=== PATIENT | female | born 1930 | race Caucasian/White ===

== ENCOUNTER 2016-08-08 08:44 | Inpatient (IN) | payer MEDICARE, OTHER ==
[2016-08-08] MEDS ORDERED: Famotidine 20 MG/2 ML SDV IVPUSH ONE (09:07)
[2016-08-08] MEDS ORDERED: Metoprolol Tartrate 5 MG/5 ML SDV IVPUSH ONE (09:10)
--- NOTE | 2016-08-08 09:11 | EDM.PDOC ---
ED HISTORY OF PRESENT ILLNESS - General Chief Complaint: Back Pain or Injury Stated Complaint: right sided rib/back pain Time Seen by Provider: 08/08/16 08:55 Source of Information: Reports: Patient, Old records ([facility] chart/EMR) - History of Present Illness INITIAL COMMENTS - FREE TEXT/NARRATIVE: Patient was brought to the emergency room via private automobile by her friend for evaluation of nonspecific 9/10 pressure in the right chest region with radiation to the right posterior back region, right scapular region, mid thoracic region, and right shoulder. Symptoms started at about 07:15 a.m. this morning with patient taking some water at that time and experiencing some increased burping. She has also noticed some increased bilateral hand swelling and dependent edema since 08/06. The patient was just discharged from this facility on 07/18/16 for anasarca, CHF, and hypertension. She was also started on hydrocodone for nonspecific hand pain on 08/01/16. Patient has not taken her morning medications to this point and also did not take any medications for her above symptoms. The patient denies any heart flutter, dizziness, orthostasis, orthopnea, diaphoresis, paresthesias, recent decreased exercise tolerance, or any other anginal-type symptoms. No recent history of abdominal pain, heartburn , nausea, diarrhea, melena, gross hematochezia, or any food intolerance, including fatty foods, etc.. The patient also denies any recent fever, cough, wheezing, dyspnea, etc.. No history of recent headaches, visual changes, diplopia, change in mental status, or other change in neurological status. Symptom Onset Date: 08/08/16 Symptom Onset Time: 07:15 Timing/Duration: Reports: Constant Severity: severe Location, General: Reports: chest, back, upper extremity, right, radiates to: ( As above). 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) (None) - Related Data Allergies/ADRs: Allergies Allergy/AdvReac Type Severity Reaction Status Date / Time atorvastatin calcium Allergy Lightheaded Verified 08/08/16 08:59 [From Lipitor] ness benzalkonium chloride Allergy Redness Verified 08/08/16 08:59 [From Travatan] celecoxib [From Celebrex] Allergy Change Verified 08/08/16 08:59 Mental Status erythromycin base Allergy Hives Verified 08/08/16 08:59 [Erythromycin Base] iodine Allergy Other Verified 08/08/16 08:59 nifedipine Allergy Swelling Verified 08/08/16 08:59 Penicillins Allergy Swelling Verified 08/08/16 08:59 rofecoxib [From Vioxx] Allergy Change Verified 08/08/16 08:59 Mental Status rosuvastatin calcium Allergy Lightheaded Verified 08/08/16 08:59 [From Crestor] ness sulfamethoxazole Allergy Hives Verified 08/08/16 08:59 [From Sulfamethoprim] travoprost [From Travatan] Allergy Redness Verified 08/08/16 08:59 trimethoprim Allergy Hives Verified 08/08/16 08:59 [From Sulfamethoprim] valdecoxib [From Bextra] Allergy Change Verified 08/08/16 08:59 Mental Status soy Allergy Nausea and Uncoded 08/08/16 08:59 Vomiting Home Meds: Home Meds Acetaminophen 650 mg PO Q4HR PRN 07/15/16 [History] Docusate Sodium [Colace] 1 cap PO BID PRN 07/15/16 [History] Ketotifen Fumarate [Zaditor] 1 drop EYEBOTH BEDTIME 07/15/16 [History] LORazepam [Ativan] 0.5 mg PO BEDTIME PRN 07/15/16 [History] Levothyroxine Sodium [Unithroid] 50 mcg PO DAILY 07/15/16 [History] Losartan Potassium 1 tab PO DAILY 07/15/16 [History] Lutein/Minerals/Vit A,C & E [Ocuvite] 1 tab PO BID 07/15/16 [History] Methyl Salicylate/Menthol [Muscle Rub] 1 applic TOP ASDIRECTED PRN 07/15/16 [ History] Multivitamin [Daily Rajat] 1 tab PO DAILY 07/15/16 [History] Nitroglycerin [Nitrostat] 0.4 mg SL Q5M PRN 07/15/16 [History] Warfarin [Coumadin] 1 tab PO MOTUTHFRSA@1800 07/15/16 [History] Warfarin [Coumadin] 2 mg PO SUWE@1800 07/15/16 [History] amLODIPine Besylate [Amlodipine Besylate] 2.5 mg PO Q12HR 07/15/16 [History] Furosemide [Lasix] 20 mg PO DAILY #30 tablet 07/18/16 [Rx] Metoprolol Tartrate [Lopressor] 12.5 mg PO Q12HR #15 tablet 07/18/16 [Rx] Hydrocodone/Acetaminophen [Hydrocodone-Acetaminophen 5-325] 0.5 tab PO Q4HR PRN 08/08/16 [History] Past Medical History HEENT History: Reports: Allergic rhinitis, Cataract, Glaucoma, Hard of hearing, Impaired vision, Other (see below). Denies: Retinal detachment Other HEENT History: Patient wears trifocals, bilateral hearing aides Cardiovascular History: Reports: Afib, Arrhythmia, Blood clots/VTE/DVT, CAD, Cardiomyopathy, Heart Failure, Heart murmur, High cholesterol, Hypertension, PVD , Other (see below). Denies: Aneurysm, Bypass, NE, Pacemaker, Stents, Syncope Other Cardiovascular History: First degree A-V block, PVCs, PACs, distant brief atrial fibrillation, patient denies previous NE despite medical records, grade 2 diastolic dysfunction, moderate left ventricular hypertrophy and left atrial enlargement by echocardiogram, mild pulmonary valve insufficiency and mild to moderate tricuspid valve insufficiency with additional mild mitral valve insufficiency by echocardiogram, mild aortic valve sclerosis without stenosis, mild carotid occlusive, history of superficial thrombophlebitis and varicose veins, DVT of the proximal left femoral vein on 08/09/15 with right-sided PE on 05/08/16 and current warfarin therapy Respiratory History: Reports: COPD, Intubation, previous, PE, Sleep apnea, SOB, Other (see below). Denies: Asthma, Intubation, difficult, Pneumothorax, Pulmonary fibrosis Other Respiratory History: Patient does use CPAP for her moderate to severe obstructive sleep apnea with previous history of nocturnal hypoxemia, PE as above, left apical benign granuloma by CT scan on 05/08/16, COPD by chest x-ray with no medical therapy Gastrointestinal History: Reports: Chronic constipation, Diverticulosis, GERD, Other (see below). Denies: Celiac disease, Cholelithiasis, Chronic diarrhea, Colon polyp, Fecal incontinence, Gastritis, GI bleed, Hepatitis, Hiatal hernia, Inflammatory bowel disease, Irritable bowel syndrome, Jaundice, Pancreatitis, PUD Other Gastrointestinal History: Benign hepatic cysts by CT scan on 02/18/16, fatty liver secondary to hyperlipidemia Genitourinary History: Reports: Chronic renal insuffiency, Renal disease, Other (see below). 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 Denies: Amputation , Fracture, SLE Neurological History: Reports: CVA, Headaches, chronic, Migraines, Other (see below). 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 Denies: Abuse, victim of, ADD, ADHD, Addiction, Psych Hospitalization(s), PTSD, Suicide attempt, Suicidal ideation Endocrine/Metabolic History: Reports: Hypothyroidism, Osteoporosis. 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 Denies: AIDS, HIV, SLE Oncologic (Cancer) History: Reports: None. Denies: Basal cell carcinoma, Cervix , Hodgkin's Lymphoma, Leukemia, Lymphoma, Malignant melanoma, Non-Hodgkin's Lymphoma, Squamous cell carcinoma, Uterine Dermatologic History: Reports: Other (see below). Denies: Eczema, Psoriasis Other Dermatologic History: Actinic keratosis of the nose previously treated - Infectious Disease History Infectious Disease History: Reports: Chicken pox, Measles, Mumps, Shingles ( Left lower chest region in about 2004). Denies: C-difficile, Meningitis, Mononucleosis, MRSA, Pertussis (whooping cough), Rheumatic Fever, Rubella, Scarlet fever, TB, VRE - Past Surgical History Head Surgeries/Procedures: Reports: None HEENT Surgical History: Reports: Cataract surgery, Oral surgery, Other (see below). Denies: Adenoidectomy, Eye surgery, Laser surgery, LASIK, Myringotomy w tube(s), Naso-sinus surgery, Tonsillectomy Other HEENT Surgeries/Procedures: Bilateral cataract surgery in 2012, multiple teeth extractions with partial upper dentures Cardiovascular Surgical History: Reports: Varicose, Vascular surgery, Other ( see below). Denies: Carotid stents, Coronary artery bypass, Pacer, Percutaneous transluminal angioplasty Other Cardiovascular Surgeries/Procedures: Varicose vein stripping in the right leg in 1951 Respiratory Surgical History: Reports: None. Denies: Lung Biopsies, Thoracentesis GI Surgical History: Reports: Appendectomy, Colonoscopy, Other (see below). Denies: EGD, Hernia, abdominal, Hernia, inguinal, Hernia repair/other, Polypectomy Other GI Surgeries/Procedures: Colonoscopy in the , appendectomy concomitant with partial hysterectomy as below Female Surgical History: Reports: Breast biopsy, Hysterectomy, Salpingo- oophorectomy, Other (see below). Denies: section, Tubal ligation Other Female Surgeries/Procedures: Left breast biopsy for benign disease in the , partial hysterectomy with remaining left ovary secondary to dysfunctional uterine bleeding in the , previous right-sided salpingo- oophorectomy prior to the above hysterectomy Endocrine Surgical History: Reports: None. Denies: Thyroid biopsy Neurological Surgical History: Reports: None. Denies: C-Spine, Intracranial, Laminectomy, Lumbar spine, Spinal fusion, Vertebroplasty Musculoskeletal Surgical History: Reports: Arthroscopic knee, Arthroscopic procedure, Carpal tunnel, Hip replacement, Joint replacement, Other (see below) . Denies: Amputation, Ganglion cyst, Nerve relocation Other Musculoskeletal Surgeries/Procedures:: Left hip TEP on 06/25/15, right carpal tunnel release in about 2004, left carpal tunnel release on 06/29/14, right arthroscopic knee surgery in about 2007 Oncologic Surgical History: Reports: Biopsy of breast, Other (see below) Other Oncologic Surgeries/Procedures: Biopsy of the breast as above Dermatological Surgical History: Reports: None - Past Imaging History Past Imaging History: Reports: Angiography (Negative heart catheterization in about 1999), Cardiac echo (Last on 05/13/16 with ejection fraction of 65-70% and moderate disease as above, previous evaluations on 05/08/16, 05/08/14 and ), Carotid US (11/02/09), CAT scan (Abdomen and pelvis on 02/04/10 and , CT of the chest on 05/08/16), Mammogram (Last mammogram on 10/08/15), MRI ( MRI of the lumbar region and left hip on 05/21/15, MRI of the right knee on 01/22), Sleep study (02/13/16 and 10/01/15), Stress testing (Cardiolite stress test on 01/17/10), Venous doppler (Left leg on 08/09/15, bilateral legs on 05/08/16, right leg on 04/29/10) Social & Family History - Family History HEENT: Reports: Allergic rhinitis, Retinal detachment, Other (see below). Denies: Glaucoma, Macular degeneration Other HEENT Family History: Daughter with retinal detachment Cardiac: Reports: Bypass, CAD, Heart murmur, Heart valve replacement, High cholesterol, Hypertension, NE, PVD/COD, Other (see below). Denies: Afib, Aneurysm, Arrhythmia, Blood clots/VTE/DVT, Heart failure, Syncope Other Cardiac Family History: Son with mechanical valve replacement and CABG x1 at about age 62, son also - also suffers from hypertension hyperlipidemia, son with agent orange exposure Respiratory: Reports: None. Denies: Asthma, COPD, PE, Pneumothorax, Sleep apnea GI: Reports: Celiac disease, Other (see below). Denies: Cholelithiasis, Colon polyps, GERD, GI bleed, Hiatal hernia, Inflammatory bowel disease, Irritable bowel syndrome, Jaundice, Pancreatitis Other GI Family History: Daughter with celiac disease : Reports: Renal disease/insufficiency, Other (see below). Denies: Dialysis, Renal calculus Other Family History: Mother with end-stage renal disease OBGYN: Reports: None. Denies: Dysfunctional uterine bleeding, Endometriosis, Recurrent spontaneous Musculoskeletal: Reports: None. Denies: Connective tissue disease, Gout, RA, SLE Neurological: Reports: Migraines, Seizure, Other (see below). Denies: Alzheimers disease, Cerebral aneurysms, CVA, Dementia, MS, Parkinson's, TIA Other Neurological Family History: Granddaughter with seizures at age 19, 2 granddaughters with migraine headaches Psychiatric: Reports: Anxiety, Depression, Other (see below). Denies: Abuse, victim of, ADD, ADHD, PTSD, Suicide attempt Other Psychiatric Family History: Son with anxiety depression disorder Endocrine/Metabolic: Reports: None. Denies: Diabetes, type I, Diabetes, type II , Hypothyroidism, IDDM Hematologic: Reports: None. Denies: Anemia, SLE Immunologic: Reports: None. Denies: AIDS, Immunosuppression, SLE Dermatologic: Reports: Psoriasis, Other (see below). Denies: Eczema Other Dermatologic Family History: Daughter with psoriasis Oncologic: Reports: Bone, Esophageal, Metastatic, Other (see below). Denies: Hodgkin's lymphoma, Skin Other Oncologic Family History: Sister with possible bone cancer fatal at age 18 , sister with fatal throat cancer in her 60s, sister with fatal vaginal cancer in her 60s, father with fatal throat cancer with pulmonary metastases at age 77 - Tobacco Use Smoking Status *Q: Never Smoker Smoking Cessation Information Provided To Patient: No Second Hand Smoke Exposure: No Second Hand Smoke Education Provided: No - Caffeine Use Caffeine Use: Reports: Coffee (4 cups per day), Soda (2 sodas per month), Tea ( 2 cups per week). Denies: Energy drinks - Alcohol Use Alcohol Use History: Yes Days Per Week of Alcohol Use: 0 (No previous DWIs, problems with alcohol abuse, etc.) Number of Drinks Per Day: 1 (Usually occasional beer or wine once per month) Total Drinks Per Week: 0 Alcohol Use Frequency: Socially - Recreational Drug Use Recreational Drug Use: No Drug Use in Last 12 Months: No Recreational Drug Type: Denies: Amphetamines (Speed), Cocaine, Heroin, Inhalants (Glues, Solvents, Aerosols), LSD (Acid), Marijuana/Hashish, Methamphetamine, Morphine - Living Situation & Occupation Living situation: Reports: (2010, 2 children), alone 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 Denies: fever, chills, weakness, fatigue , night sweats, diaphoresis, decreased appetite, weight loss, weight gain HEENT: Reports: No symptoms, Glasses. Denies: Contact Lenses, Dental pain, Ear pain, Eye pain, Hearing loss, Rhinitis, Sinus problem, Throat pain, Vertigo, Vision change Respiratory: Reports: No Symptoms. Denies: Shortness of Breath, Wheezing, Pleuritic Chest Pain, Cough, Hemoptysis Cardiovascular: Reports: Chest pain, Edema (Increasing dependent edema as above) . Denies: Blood pressure problem, Dyspnea on exertion, Lightheadedness, Orthopnea, Palpitations, PND, Syncope Endocrine: Reports: no symptoms GI/Abdominal: Reports: Other (Mild burping as above). Denies: Abdominal pain, Anorexia, Black stool, Bloody stool, Constipation, Diarrhea, Decreased appetite , Difficulty swallowing, Distension, Flatus, Hematemesis, Hematochezia, Melena, Nausea, Stool incontinence : Reports: no symptoms. Denies: dysuria, flank pain, frequency, hematuria, pain, urgency, urinary retention Musculoskeletal: Reports: shoulder pain, back pain, hand pain (Chronic). Denies : neck pain, arm pain, leg pain, foot pain, joint pain, joint swelling Skin: Reports: no symptoms. Denies: diaphoresis, wound Neurological: Denies: Confusion, Dizziness, Headache, Numbness, Paresthesia, Tingling, Weakness Psychiatric: Reports: No symptoms. Denies: Agitation, Anxiety, Depression, Hallucinations, Suicidal ideation Hematologic/Lymphatic: Reports: no symptoms Immunologic: Reports: no symptoms ED EXAM, GENERAL - Physical Exam Exam: See Below Exam Limited By: No limitations General Appearance: alert, WD/WN, no apparent distress Eye Exam: bilateral eye: EOMI, normal inspection (No nystagmus), PERRL Ears: normal external exam, normal canal, normal TMs, hearing loss (Moderate bilateral hearing loss with the patient not wearing her hearing aides currently) . No: hearing grossly normal Nose: normal inspection, normal mucosa, no blood Throat/Mouth: Normal inspection, Normal lips, Normal teeth (Multiple missing teeth), Normal gums, Normal oropharynx, Normal voice, No airway compromise. No : Dysphagia, Inflammation Head: atraumatic, normocephalic. No: facial swelling, facial tenderness, sinus tenderness Neck: normal inspection, supple, non-tender, full range of motion, carotid bruit (Bilateral carotid bruits-mild). No: lymphadenopathy (L), lymphadenopathy (R), thyromegaly Respiratory/Chest: no accessory muscle use, chest non-tender, rales (Bilateral basilar-mild). No: wheezing, pleural rub, retractions Cardiovascular: normal peripheral pulses, no gallop, no JVD, no murmur, no rub, extra beats (Uniform PVCs a monitoring analyst as below, regular rate). No: regular rate, rhythm, no edema (Dependent edema as below), systolic murmur, gallop/S3, gallop/S4, friction rub Peripheral Pulses: 2+: radial (L), radial (R), dorsalis pedis (L), dorsalis pedis (R) GI/Abdominal: normal bowel sounds, soft, non tender, no organomegaly, no distention, no abnormal bruit, no mass, other (obese). No: guarding (Female) Exam: Deferred Rectal (Female) Exam: Deferred Back Exam: normal inspection, full range of motion. No: CVA tenderness (L), CVA tenderness (R), muscle spasm Extremities: normal range of motion, non-tender, normal capillary refill, pedal edema (+ 1 bilateral pedal/pretibial edema). No: Sergio's Sign Neurological: alert, oriented, CN II-XII intact, normal cognition, normal gait, normal reflexes (Negative Babinski's), no motor/sensory deficits Psychiatric: normal affect, normal mood Skin Exam: Warm, Dry, Intact, Normal color, No rash. No: Diaphoretic, Ecchymosis, Lymphangitis, Petechiae, Wound/incision Lymphatic: no adenopathy EKG INTERPRETATION EKG Date: 08/08/16 Time: 09:09 Rhythm: other (Sinus rhythm with PVCs) Rate (beats/min): 70 [place]: normal (Left cardiac axis) P-wave: enlarged (Moderate diffuse biphasic P waves with extreme poor R-wave progression in the anterior leads) QRS: normal (QRS interval of 0.09 seconds representing repolarization changes with T-wave inversion in lead aVL) ST-T: other (As below) QT: normal (0.19 seconds) Comparison: no change (Last EKG on 07/16/16) EKG Interpretation Comments: 1. No acute ischemic changes 2. Probable left atrial enlargement 3. PVCs Course - Vital Signs Last Recorded V/S: Last Vital Signs Temp 36.6 C 08/08/16 08:50 Pulse 64 08/08/16 11:55 Resp 16 08/08/16 11:55 BP 155/57 H 08/08/16 11:55 Pulse Ox 100 08/08/16 11:55 Vital Signs - 24 hr 08/08/16 08/08/16 08/08/16 08:50 09:32 09:33 Temperature [ 36.6 C Oral] Pulse, 74 Peripheral Pulse, 68 74 Peripheral [ Right Brachial] Respiratory 18 14 Rate Blood Pressure 200/80 H Blood Pressure 180/80 H 200/80 H [Left Upper Arm ] Blood Pressure 218/88 H [Right Upper Arm] O2 Sat by Pulse 98 100 Oximetry 08/08/16 08/08/16 08/08/16 09:40 09:45 09:56 Temperature [ Oral] Pulse, Peripheral Pulse, 67 65 Peripheral [ Right Brachial] Respiratory 16 15 Rate Blood Pressure 200/80 H Blood Pressure [Left Upper Arm ] Blood Pressure 150/70 H 168/80 H [Right Upper Arm] O2 Sat by Pulse 99 100 Oximetry 08/08/16 08/08/16 08/08/16 10:47 10:51 11:10 Temperature [ Oral] Pulse, Peripheral Pulse, 68 67 Peripheral [ Right Brachial] Respiratory 16 14 Rate Blood Pressure 187/57 H Blood Pressure 187/57 H [Left Upper Arm ] Blood Pressure 144/52 H [Right Upper Arm] O2 Sat by Pulse 100 100 Oximetry 08/08/16 11:55 Temperature [ Oral] Pulse, Peripheral Pulse, 64 Peripheral [ Right Brachial] Respiratory 16 Rate Blood Pressure Blood Pressure [Left Upper Arm ] Blood Pressure 155/57 H [Right Upper Arm] O2 Sat by Pulse 100 Oximetry - Orders/Labs/Meds Orders: Active Orders 24 hr Category Date Time Status Cardiac Monitoring [RC] . DIRECTED Care 08/08/16 09:07 Active EKG Documentation Completion [RC] ASDIRECTED Care 08/08/16 09:07 Active Oxygen Therapy, ED [RC] CONTINUOUS Care 08/08/16 09:07 Active Peripheral IV Care [RC] . DIRECTED Care 08/08/16 09:07 Active Pulse Oximetry [RC] CONTINUOUS Care 08/08/16 09:07 Active Up With Assistance [RC] PFP Care 08/08/16 09:07 Active Vital Signs [RC] PFP Care 08/08/16 09:07 Active Nothing per Oral Now Diet [DIET] Diet 08/08/16 Breakfast Active Chest 1V Frontal [CR] Stat Exams 08/08/16 09:07 Taken Chest PE [Ang Chest] [CT] Stat Exams 08/08/16 10:07 Taken Enoxaparin [Lovenox] Med 08/08/16 10:15 Active 70 mg SUBCUT Q24H Morphine Med 08/08/16 11:30 Once 2 mg IVPUSH ONETIME ONE Nitroglycerin [Nitrostat] Med 08/08/16 09:35 Stat 0.4 mg SL ONETIME STA Nitroglycerin [Nitrostat] Med 08/08/16 10:50 Stat 0.4 mg SL ONETIME STA Sodium Chloride 0.9% [Saline Flush] Med 08/08/16 09:07 Active 10 ml FLUSH ASDIRECTED PRN Obtain Past Medical Record [OM.PC] Urgent Oth 08/08/16 09:07 Active Peripheral IV Insertion Adult [OM.PC] Stat Oth 08/08/16 09:07 Ordered Resuscitation Status Stat Resus Stat 08/08/16 09:07 Ordered Medication Orders Enoxaparin Sodium (Lovenox) 70 mg SUBCUT Q24H [facility] Last Admin: 08/08/16 10:13 Dose: 70 mg Morphine Sulfate (Morphine) 2 mg IVPUSH ONETIME ONE Stop: 08/09/16 11:31 Last Admin: 08/08/16 11:37 Dose: 2 mg Nitroglycerin (Nitrostat) 0.4 mg SL ONETIME STA Stop: 08/09/16 09:36 Last Admin: 08/08/16 09:40 Dose: 0.4 mg Nitroglycerin (Nitrostat) 0.4 mg SL ONETIME STA Stop: 08/09/16 10:51 Last Admin: 08/08/16 10:51 Dose: 0.4 mg Sodium Chloride (Saline Flush) 10 ml FLUSH ASDIRECTED PRN PRN Reason: Keep Vein Open Last Admin: 08/08/16 09:44 Dose: 10 ml Admin: 08/08/16 09:33 Dose: 10 ml Labs: Laboratory Tests 08/08/16 08/08/16 08/08/16 Range/Units 09:20 09:20 09:20 WBC 6.0 (4.0-10.2) K/uL RBC 3.86 (3.77-5.09) M/uL Hgb 10.5 L (11.7-15.5) g/dL Hct 32.6 L (34.0-46.0) % MCV 84.5 (84.0-98.0) fL MCH 27.2 L (28.2-33.3) pg MCHC 32.2 (31.7-36.0) g/dL RDW 15.5 H (11.2-14.1) % Plt Count 266 (150-350) K/uL Neut % (Auto) 64.0 (45.0-80.0) % Lymph % (Auto) 22.0 (10.0-50.0) % Crockett % (Auto) 10.1 (2.0-14.0) % Eos % (Auto) 3.4 (0.0-5.0) % Baso % (Auto) 0.5 (0.0-2.0) % Neut # 3.82 (1.40-7.00) K/uL Lymph # 1.31 (0.50-3.50) K/uL Crockett # 0.60 (0.00-1.00) K/uL Eos # 0.20 (0.00-0.50) K/uL Baso # 0.03 (0.00-0.20) K/uL PT 13.3 H D (9.8-11.7) SEC INR 1.2 APTT 29.2 (23.5-30.0) SEC D-Dimer, Quantitative 643 H (0-400) ng/mL Sodium (136-145) mmol/L Potassium (3.5-5.1) mmol/L Chloride (98-107) mmol/L Carbon Dioxide (21.0-32.0) mmol/L BUN (7-18) mg/dL Creatinine (0.51-1.17) mg/dL Est Cr Clr Drug Dosing mL/min Estimated GFR (MDRD) mL/min Glucose (74-106) mg/dL Lactic Acid (0.4-2.0) mmol/L Uric Acid (2.6-7.2) mg/dL Calcium (8.5-10.1) mg/dL Magnesium (1.8-2.4) mg/dL Total Bilirubin (0.2-1.0) mg/dL AST (15-37) U/L ALT (12-78) U/L Alkaline Phosphatase (46-116) IU/L Creatine Kinase (26-308) U/L Creatine Kinase Index (0.0-2.5) % CK-MB (CK-2) (0.00-3.60) ng/mL Troponin I (0.000-0.056) ng/mL [id number] Pept (0-125) pg/mL Total Protein (6.4-8.2) g/dL Albumin (3.4-5.0) g/dL TSH, Ultra Sensitive (0.358-3.740) mIU/mL H. pylori IgG Antibody (NEGATIVE) 08/08/16 08/08/16 08/08/16 Range/Units 09:20 09:20 09:20 WBC (4.0-10.2) K/uL RBC (3.77-5.09) M/uL Hgb (11.7-15.5) g/dL Hct (34.0-46.0) % MCV (84.0-98.0) fL MCH (28.2-33.3) pg MCHC (31.7-36.0) g/dL RDW (11.2-14.1) % Plt Count (150-350) K/uL Neut % (Auto) (45.0-80.0) % Lymph % (Auto) (10.0-50.0) % Crockett % (Auto) (2.0-14.0) % Eos % (Auto) (0.0-5.0) % Baso % (Auto) (0.0-2.0) % Neut # (1.40-7.00) K/uL Lymph # (0.50-3.50) K/uL Crockett # (0.00-1.00) K/uL Eos # (0.00-0.50) K/uL Baso # (0.00-0.20) K/uL PT (9.8-11.7) SEC INR APTT (23.5-30.0) SEC D-Dimer, Quantitative (0-400) ng/mL Sodium 138 (136-145) mmol/L Potassium 4.0 (3.5-5.1) mmol/L Chloride 102 (98-107) mmol/L Carbon Dioxide 28.6 (21.0-32.0) mmol/L BUN 24 H (7-18) mg/dL Creatinine 0.91 (0.51-1.17) mg/dL Est Cr Clr Drug Dosing 37.61 mL/min Estimated GFR (MDRD) 58 mL/min Glucose 103 (74-106) mg/dL Lactic Acid 0.8 (0.4-2.0) mmol/L Uric Acid 5.7 (2.6-7.2) mg/dL Calcium 8.7 (8.5-10.1) mg/dL Magnesium 2.0 (1.8-2.4) mg/dL Total Bilirubin 0.5 (0.2-1.0) mg/dL AST 21 (15-37) U/L ALT 20 (12-78) U/L Alkaline Phosphatase 72 (46-116) IU/L Creatine Kinase 43 (26-308) U/L Creatine Kinase Index 1.4 (0.0-2.5) % CK-MB (CK-2) 0.60 (0.00-3.60) ng/mL Troponin I 0.038 (0.000-0.056) ng/mL [id number] Pept 2105 H (0-125) pg/mL Total Protein 6.8 (6.4-8.2) g/dL Albumin 3.3 L (3.4-5.0) g/dL TSH, Ultra Sensitive 3.845 H (0.358-3.740) mIU/mL H. pylori IgG Antibody Negative (NEGATIVE) Meds: Medications Generic Name Dose Route Start Last Admin Trade Name Freq PRN Reason Stop Dose Admin Enoxaparin Sodium 70 mg 08/08/16 10:15 08/08/16 10:13 Lovenox SUBCUT 70 mg Q24H NIKITA Administration Morphine Sulfate 2 mg 08/08/16 11:30 08/08/16 11:37 Morphine IVPUSH 08/09/16 11:31 2 mg ONETIME ONE Administration Nitroglycerin 0.4 mg 08/08/16 09:35 08/08/16 09:40 Nitrostat SL 08/09/16 09:36 0.4 mg ONETIME STA Administration Nitroglycerin 0.4 mg 08/08/16 10:50 08/08/16 10:51 Nitrostat SL 08/09/16 10:51 0.4 mg ONETIME STA Administration Sodium Chloride 10 ml 08/08/16 09:07 08/08/16 09:44 Saline Flush FLUSH 10 ml ASDIRECTED PRN Administration Keep Vein Open Discontinued Medications Generic Name Dose Route Start Last Admin Trade Name Freq PRN Reason Stop Dose Admin Famotidine 40 mg 08/08/16 09:07 08/08/16 09:33 Pepcid IVPUSH 08/08/16 09:08 40 mg ONETIME ONE Administration Furosemide 60 mg 08/08/16 09:21 08/08/16 09:37 Lasix IVPUSH 08/08/16 09:22 60 mg NOW ONE Administration Iopamidol 100 ml 08/08/16 10:15 08/08/16 10:33 Isovue-370 (76%) IVPUSH 08/08/16 10:16 100 ml ONETIME ONE Administration Metoprolol Tartrate 2.5 mg 08/08/16 09:10 08/08/16 09:33 Lopressor IVPUSH 08/08/16 09:11 2.5 mg ONETIME ONE Administration Ondansetron HCl 4 mg 08/08/16 11:30 08/08/16 11:35 Zofran IVPUSH 08/08/16 11:31 4 mg ONETIME ONE Administration - Radiology Interpretation Free Text/Narrative:: electronic device monitor shows sinus rhythm with heart rates in the 70s with frequent uniform PVCs and occasional brief noted but no other significant cardiac arrhythmia Chest x-ray, portable, shows moderate aortic valve calcification with mild prominence of the proximal aortic arch with additional moderate COPD and pulmonary fibrotic changes. No pneumothorax or pulmonary infiltrates. Mild pulmonary hypertension and centralized CHF Telephone consultation at 11:55 hours with the radiology department at [facility]. Preliminary verbal report of the CTA of the chest with IV contrast shows no evidence of PE, etc. CT Results Date: 08/08/16 CT Results Time: 11:55 Departure - Departure Time of Disposition: 12:25 Disposition: Admitted As Inpatient 65 Condition: fair Clinical Impression: CHF (congestive heart failure), HTN (hypertension), Hypothyroidism, Renal insufficiency, Peptic reflux disease, Osteoarthritis, COPD, Mild chronic obstructive pulmonary disease, Anemia, D-dimer, elevated, Chest pain - Problem List & Annotations (1) Chest pain SNOMED Code(s): 80791848 Code(s): R07.9 - CHEST PAIN, UNSPECIFIED Status: Acute Priority: High Current Visit: Yes Onset Date: 08/08/16 Annotation/Comment:: Chest pain protocol initiated in the emergency room, although ASA and Plavix were not initially given secondary to her current Coumadin therapy, although INR subtherapeutic today. Subcutaneous Lovenox initiated once INR results were obtained. Stat CTA of the chest was also ordered with results as above. IV Lopressor and sublingual nitroglycerin also given for better blood pressure control and as cardiac prophylaxis. Initiate standard rule out NE orders with cardiology consultation depending on her clinical course. Patient was previously comfort care, however after discussing her wishes she does agree to full code with only brief CPR/code and short-term intubation only. Nonspecific nausea and headache during the end of her emergency room care, which did require IV Zofran and IV morphine therapy. Chest pain significantly improved at time of admission Qualifiers: Chest pain type: other chest pain Qualified Code(s): R07.89 - Other chest pain; R07.8 - Other chest pain (2) CHF (congestive heart failure) SNOMED Code(s): 04519862 Code(s): I50.9 - HEART FAILURE, UNSPECIFIED Status: Acute Priority: High Current Visit: Yes Onset Date: 07/15/16 Annotation/Comment:: Mild centralized CHF by chest x-ray with moderate BNP elevation and secondary mild change in her troponin I, however otherwise negative EKG and cardiac enzymes. High-dose IV Lasix given in the emergency room. Repeat cardiac enzymes x2 and also in the a.m. along with repeat EKG. She has had multiple echocardiograms, including last evaluation on 05/08/16 as above. Continue IV Lasix therapy with further medication adjustments depending on her clinical course. The patient should be discharged with higher oral dose of Lasix with caution secondary to her history of renal insufficiency. Qualifiers: Congestive heart failure type: combined Congestive heart failure chronicity : acute on chronic Qualified Code(s): I50.43 - Acute on chronic combined systolic (congestive) and diastolic (congestive) heart failure (3) D-dimer, elevated SNOMED Code(s): 811528015 Code(s): R79.89 - OTHER SPECIFIED ABNORMAL FINDINGS OF BLOOD CHEMISTRY Status: Acute Priority: High Current Visit: Yes Onset Date: 08/08/16 Annotation/Comment:: Subcutaneous Lovenox initiated in the emergency room. INR apparently 1.7 prior to initiation of her hydrocodone, which will be discontinued at this time. Continue subcutaneous Lovenox therapy for now with mild Coumadin loading on admission. INR in the a.m.. Discontinue Lovenox when INR is therapeutic. CTA of the chest is negative as above. Consider venous Doppler studies of the lower extremities depending on her clinical course. (4) HTN (hypertension) SNOMED Code(s): 27024621 Code(s): I10 - ESSENTIAL (PRIMARY) HYPERTENSION Status: Acute Priority: High Current Visit: Yes Annotation/Comment:: Definitely elevated blood pressures on arrival in the emergency room, although they have been under good control on an outpatient basis since hospital discharge as above by her history. Note that the patient did not take any of her morning medications. IV Lopressor, IV Lasix, and sublingual nitroglycerin tablets given in the emergency room with improved blood pressure. Losartan will be changed to an every afternoon regimen as previously recommended during last hospitalization with further medication adjustments depending on her clinical course. Qualifiers: Hypertension type: essential hypertension Qualified Code(s): I10 - Essential (primary) hypertension (5) COPD, Mild chronic obstructive pulmonary disease SNOMED Code(s): 886196912 Code(s): J44.9 - CHRONIC OBSTRUCTIVE PULMONARY DISEASE, UNSPECIFIED Status : Acute Priority: Medium Current Visit: Yes Annotation/Comment:: By chest x-ray not requiring medical therapy. No current bronchitic symptoms (6) Anemia SNOMED Code(s): 258444207 Code(s): D64.9 - ANEMIA, UNSPECIFIED Status: Chronic Priority: Medium Current Visit: Yes Annotation/Comment:: Persistent anemia although stable from previous recent hospitalization as above, with no abdominal pain or history of hematochezia, signs of acute GI bleed, etc. Previous history of chronic anemia likely secondary to renal disease and iron deficiency with Iron studies, vitamin B 12 level and folic acid level conducted during the last hospitalization, which did confirm persistent mild iron deficiency. Patient was not started on iron supplementation after previous hospital discharge, although this will be initiated during this hospitalization. Hemoccult also to be ordered after admission. (7) Hypothyroidism SNOMED Code(s): 52795287 Code(s): E03.9 - HYPOTHYROIDISM, UNSPECIFIED Status: Chronic Priority: Medium Current Visit: Yes Annotation/Comment:: TSH somewhat elevated today with adjustment of Synthroid therapy on admission (8) Mixed anxiety depressive disorder SNOMED Code(s): 136641699 Code(s): F41.8 - OTHER SPECIFIED ANXIETY DISORDERS Status: Chronic Current Visit: No Annotation/Comment:: Stable by patient history with continued close observation by her regular provider (9) Osteoarthritis SNOMED Code(s): 123332689 Code(s): M19.90 - UNSPECIFIED OSTEOARTHRITIS, UNSPECIFIED SITE Status: Chronic Priority: Medium Current Visit: Yes Annotation/Comment:: Recently under moderate control by patient history with additional history of rheumatoid arthritis, gout, and fibromyalgia. Discontinue narcotic medication. Further medication adjustments by her regular providers depending on her clinical course (10) Peptic reflux disease SNOMED Code(s): 35804862 Code(s): K21.9 - GASTRO-ESOPHAGEAL REFLUX DISEASE WITHOUT ESOPHAGITIS Status: Chronic Priority: Medium Current Visit: Yes Annotation/Comment:: Currently nonsymptomatic with IV Pepcid given in the emergency room as GI prophylaxis (11) Renal insufficiency SNOMED Code(s): 914872836 Code(s): N28.9 - DISORDER OF KIDNEY AND URETER, UNSPECIFIED Status: Chronic Priority: Medium Current Visit: Yes Annotation/Comment:: Stable by history with normal creatinine today (12) Iron deficiency anemia SNOMED Code(s): 77387539 Code(s): D50.9 - IRON DEFICIENCY ANEMIA, UNSPECIFIED Status: Chronic Current Visit: Yes Annotation/Comment:: As above Qualifiers: Iron deficiency anemia type: other iron deficiency Qualified Code(s): D50.8 - Other iron deficiency anemias - Problem List Review Problem List Initiated/Reviewed/Updated: Yes - My Orders Last 24 Hours: My Active Orders 08/08/16 09:07 Cardiac Monitoring [RC] . DIRECTED EKG Documentation Completion [RC] ASDIRECTED Oxygen Therapy, ED [RC] CONTINUOUS Peripheral IV Care [RC] . DIRECTED Pulse Oximetry [RC] CONTINUOUS Up With Assistance [RC] PFP Vital Signs [RC] PFP Chest 1V Frontal [CR] Stat Sodium Chloride 0.9% [Saline Flush] 10 ml FLUSH ASDIRECTED PRN Obtain Past Medical Record [OM.PC] Urgent Peripheral IV Insertion Adult [OM.PC] Stat Resuscitation Status Stat 08/08/16 09:35 Nitroglycerin [Nitrostat] 0.4 mg SL ONETIME STA 08/08/16 10:07 Chest PE [Ang Chest] [CT] Stat 08/08/16 10:15 Enoxaparin [Lovenox] 70 mg SUBCUT Q24H 08/08/16 10:50 Nitroglycerin [Nitrostat] 0.4 mg SL ONETIME STA 08/08/16 11:30 Morphine 2 mg IVPUSH ONETIME ONE 08/08/16 Breakfast Nothing per Oral Now Diet [DIET] - Assessment/Plan Admission H&P: Please use this note as an admission H&P Last 24 Hours: My Active Orders 08/08/16 09:07 Cardiac Monitoring [RC] . DIRECTED EKG Documentation Completion [RC] ASDIRECTED Oxygen Therapy, ED [RC] CONTINUOUS Peripheral IV Care [RC] . DIRECTED Pulse Oximetry [RC] CONTINUOUS Up With Assistance [RC] PFP Vital Signs [RC] PFP Chest 1V Frontal [CR] Stat Sodium Chloride 0.9% [Saline Flush] 10 ml FLUSH ASDIRECTED PRN Obtain Past Medical Record [OM.PC] Urgent Peripheral IV Insertion Adult [OM.PC] Stat Resuscitation Status Stat 08/08/16 09:35 Nitroglycerin [Nitrostat] 0.4 mg SL ONETIME STA 08/08/16 10:07 Chest PE [Ang Chest] [CT] Stat 08/08/16 10:15 Enoxaparin [Lovenox] 70 mg SUBCUT Q24H 08/08/16 10:50 Nitroglycerin [Nitrostat] 0.4 mg SL ONETIME STA 08/08/16 11:30 Morphine 2 mg IVPUSH ONETIME ONE 08/08/16 Breakfast Nothing per Oral Now Diet [DIET] Assessment:: As above Plan: As above. Extensive precautions were given to the patient, who is in agreement with the treatment plan. The patient will require about 3-4 days of inpatient/ acute care secondary to multiple health problems as above. Howard greer physician assumes care in the a.m.
[2016-08-08] MEDS ORDERED: Furosemide 40 MG/4 ML VIAL IVPUSH ONE (09:21)
[2016-08-08] MEDS: Sodium Chloride 0.9% 10 ML Syringe FLUSH PRN ×2 (09:33→09:44)
[2016-08-08] MEDS ORDERED: Nitroglycerin 0.4 MG Tab.SL SL STA ×2 (09:35→10:50)
[2016-08-08] MEDS: Enoxaparin 40 MG/0.4 ML Syringe SUBCUT SCH (10:13)
[2016-08-08] MEDS ORDERED: Iopamidol 755 Mg/ML 100 ML Bottle IVPUSH ONE (10:15)
[2016-08-08] MEDS ORDERED: Ondansetron 4 MG/2 ML SDV IVPUSH ONE (11:30)
[2016-08-08] MEDS ORDERED: Morphine 10 MG/ML Syringe IVPUSH ONE (11:30)
[2016-08-08] MEDS ORDERED: Sodium Chloride 0.9% 10 ML Syringe FLUSH PRN (12:56)
[2016-08-08] MEDS ORDERED: Warfarin 2.5 MG Tab PO ONE (13:03)
[2016-08-08] MEDS: Menthol/Methyl Salicylate 85 GM Tube TOP PRN (15:53)
[2016-08-08] MEDS: Acetaminophen 325 MG Tab PO PRN (15:53)
[2016-08-08] MEDS: traMADol 50 MG Tab PO PRN ×2 (17:17→23:16)
[2016-08-08] MEDS: Furosemide 40 MG/4 ML VIAL IVPUSH SCH (17:17)
[2016-08-08] MEDS: Losartan 50 MG Tab PO SCH (17:19)
[2016-08-08] MEDS ORDERED: Potassium Chloride 20 MEQ Tab.ER PO SCH (18:00)
[2016-08-08] MEDS: Isosorbide Mononitrate 30 MG Tab.ER PO SCH (19:12)
[2016-08-08] MEDS: Levothyroxine 75 MCG Tab PO SCH (19:12)
[2016-08-08] MEDS: amLODIPine 5 MG Tab PO SCH (19:12)
[2016-08-08] MEDS: Metoprolol Tartrate 25 MG Tab PO SCH (19:13)
[2016-08-08] MEDS: Ondansetron 4 MG/2 ML SDV IVPUSH PRN (22:26)
[2016-08-09] MEDS: Furosemide 40 MG/4 ML VIAL IVPUSH SCH ×2 (02:01→10:53)
[2016-08-09] MEDS: Sodium Chloride 0.9% 10 ML Syringe FLUSH PRN ×5 (02:01→19:18)
--- NOTE | 2016-08-09 07:38 | PCM.PN ---
- General Info Date of Service: 08/09/16 Admission Dx/Problem (Free Text): CHF Right mid back strain HTN Functional Status: Reports: pain controlled, tolerating diet Pain Score: 3 - Review of Systems General: Reports: Weakness HEENT: Reports: no symptoms Pulmonary: Reports: no symptoms Cardiovascular: Reports: No Symptoms Gastrointestinal: Reports: Other (patient had nausea after geting up to the bathroom last night, denies n/v this morning and states being hungry) Genitourinary: Reports: no symptoms Musculoskeletal: Reports: back pain (pain noted to the right mid back area off of the tspine and increases with palpation) Skin: Reports: no symptoms Neurological: Reports: No Symptoms Psychiatric: Reports: no symptoms - Patient Data Vitals - most recent: Last Vital Signs Temp 98.3 F 08/09/16 04:00 Pulse 66 08/09/16 04:00 Resp 18 08/09/16 04:00 BP 124/61 08/09/16 04:00 Pulse Ox 98 08/09/16 04:00 Weight - most recent: 166 lb 4.8 oz I&O - last 24 hours: Intake & Output 08/08/16 08/09/16 08/09/16 22:59 06:59 14:59 Intake Total 690 Output Total 525 650 Balance 165 -650 Lab Results last 24 hrs: Laboratory Results - last 24 hr 08/08/16 08/08/16 08/08/16 Range/Units 14:46 14:46 20:35 WBC (4.0-10.2) K/uL RBC (3.77-5.09) M/uL Hgb (11.7-15.5) g/dL Hct (34.0-46.0) % MCV (84.0-98.0) fL MCH (28.2-33.3) pg MCHC (31.7-36.0) g/dL RDW (11.2-14.1) % Plt Count (150-350) K/uL Neut % (Auto) (45.0-80.0) % Lymph % (Auto) (10.0-50.0) % Gilmer % (Auto) (2.0-14.0) % Eos % (Auto) (0.0-5.0) % Baso % (Auto) (0.0-2.0) % Neut # (1.40-7.00) K/uL Lymph # (0.50-3.50) K/uL Gilmer # (0.00-1.00) K/uL Eos # (0.00-0.50) K/uL Baso # (0.00-0.20) K/uL PT (9.8-11.7) SEC INR D-Dimer, Quantitative (0-400) ng/mL Sodium (136-145) mmol/L Potassium (3.5-5.1) mmol/L Chloride (98-107) mmol/L Carbon Dioxide (21.0-32.0) mmol/L BUN (7-18) mg/dL Creatinine (0.51-1.17) mg/dL Est Cr Clr Drug Dosing mL/min Estimated GFR (MDRD) mL/min Glucose (74-106) mg/dL Hemoglobin A1c (4.3-5.7) % Calcium (8.5-10.1) mg/dL Total Bilirubin (0.2-1.0) mg/dL AST (15-37) U/L ALT (12-78) U/L Alkaline Phosphatase (46-116) IU/L Creatine Kinase 43 (26-308) U/L Creatine Kinase Index 1.6 (0.0-2.5) % CK-MB (CK-2) 0.70 (0.00-3.60) ng/mL Troponin I 0.038 0.035 (0.000-0.056) ng/mL Qnx-B-Fzptlwkcjkw Pept (0-125) pg/mL Total Protein (6.4-8.2) g/dL Albumin (3.4-5.0) g/dL Triglycerides (30-150) mg/dL Cholesterol (100-200) mg/dL LDL Cholesterol, Calc (0-100) mg/dL HDL Cholesterol (40-60) mg/dL Amylase 56 (25-115) U/L Lipase 109 (73-393) U/L 08/08/16 08/09/16 08/09/16 Range/Units 20:35 06:10 06:10 WBC 4.5 (4.0-10.2) K/uL RBC 3.78 (3.77-5.09) M/uL Hgb 10.3 L (11.7-15.5) g/dL Hct 31.9 L (34.0-46.0) % MCV 84.4 (84.0-98.0) fL MCH 27.2 L (28.2-33.3) pg MCHC 32.3 (31.7-36.0) g/dL RDW 15.6 H (11.2-14.1) % Plt Count 277 (150-350) K/uL Neut % (Auto) 62.1 (45.0-80.0) % Lymph % (Auto) 22.2 (10.0-50.0) % Gilmer % (Auto) 12.6 (2.0-14.0) % Eos % (Auto) 2.2 (0.0-5.0) % Baso % (Auto) 0.9 (0.0-2.0) % Neut # 2.80 (1.40-7.00) K/uL Lymph # 1.00 (0.50-3.50) K/uL Gilmer # 0.57 (0.00-1.00) K/uL Eos # 0.10 (0.00-0.50) K/uL Baso # 0.04 (0.00-0.20) K/uL PT 14.3 H (9.8-11.7) SEC INR 1.3 D-Dimer, Quantitative (0-400) ng/mL Sodium (136-145) mmol/L Potassium (3.5-5.1) mmol/L Chloride (98-107) mmol/L Carbon Dioxide (21.0-32.0) mmol/L BUN (7-18) mg/dL Creatinine (0.51-1.17) mg/dL Est Cr Clr Drug Dosing mL/min Estimated GFR (MDRD) mL/min Glucose (74-106) mg/dL Hemoglobin A1c (4.3-5.7) % Calcium (8.5-10.1) mg/dL Total Bilirubin (0.2-1.0) mg/dL AST (15-37) U/L ALT (12-78) U/L Alkaline Phosphatase (46-116) IU/L Creatine Kinase 37 (26-308) U/L Creatine Kinase Index 1.6 (0.0-2.5) % CK-MB (CK-2) 0.60 (0.00-3.60) ng/mL Troponin I (0.000-0.056) ng/mL Jcv-W-Ollctwirjsm Pept (0-125) pg/mL Total Protein (6.4-8.2) g/dL Albumin (3.4-5.0) g/dL Triglycerides (30-150) mg/dL Cholesterol (100-200) mg/dL LDL Cholesterol, Calc (0-100) mg/dL HDL Cholesterol (40-60) mg/dL Amylase (25-115) U/L Lipase (73-393) U/L 08/09/16 08/09/16 08/09/16 Range/Units 06:10 06:10 06:10 WBC (4.0-10.2) K/uL RBC (3.77-5.09) M/uL Hgb (11.7-15.5) g/dL Hct (34.0-46.0) % MCV (84.0-98.0) fL MCH (28.2-33.3) pg MCHC (31.7-36.0) g/dL RDW (11.2-14.1) % Plt Count (150-350) K/uL Neut % (Auto) (45.0-80.0) % Lymph % (Auto) (10.0-50.0) % Gilmer % (Auto) (2.0-14.0) % Eos % (Auto) (0.0-5.0) % Baso % (Auto) (0.0-2.0) % Neut # (1.40-7.00) K/uL Lymph # (0.50-3.50) K/uL Gilmer # (0.00-1.00) K/uL Eos # (0.00-0.50) K/uL Baso # (0.00-0.20) K/uL PT (9.8-11.7) SEC INR D-Dimer, Quantitative 219 (0-400) ng/mL Sodium 136 (136-145) mmol/L Potassium 4.4 (3.5-5.1) mmol/L Chloride 98 (98-107) mmol/L Carbon Dioxide 31.3 (21.0-32.0) mmol/L BUN 26 H (7-18) mg/dL Creatinine 1.27 H (0.51-1.17) mg/dL Est Cr Clr Drug Dosing 26.95 mL/min Estimated GFR (MDRD) 40 mL/min Glucose 124 H (74-106) mg/dL Hemoglobin A1c 6.0 H (4.3-5.7) % Calcium 8.7 (8.5-10.1) mg/dL Total Bilirubin 0.5 (0.2-1.0) mg/dL AST 18 (15-37) U/L ALT 20 (12-78) U/L Alkaline Phosphatase 73 (46-116) IU/L Creatine Kinase 29 (26-308) U/L Creatine Kinase Index 1.0 (0.0-2.5) % CK-MB (CK-2) 0.30 (0.00-3.60) ng/mL Troponin I 0.032 (0.000-0.056) ng/mL Myb-M-Gmkkheiowtu Pept 1797 H (0-125) pg/mL Total Protein 6.7 (6.4-8.2) g/dL Albumin 3.2 L (3.4-5.0) g/dL Triglycerides 87 (30-150) mg/dL Cholesterol 247 H (100-200) mg/dL LDL Cholesterol, Calc 153 H (0-100) mg/dL HDL Cholesterol 77 H (40-60) mg/dL Amylase (25-115) U/L Lipase (73-393) U/L Med Orders - Current: Current Medications Acetaminophen (Tylenol) 650 mg PO Q4HR PRN PRN Reason: Pain/Fever Last Admin: 08/08/16 15:53 Dose: 650 mg Amlodipine Besylate (Norvasc) 2.5 mg PO Q12HR [facility] Last Admin: 08/08/16 19:12 Dose: 2.5 mg Docusate Sodium (Colace) 100 mg PO BID PRN PRN Reason: Constipation Enoxaparin Sodium (Lovenox) 70 mg SUBCUT Q24H [facility] Last Admin: 08/08/16 10:13 Dose: 70 mg Famotidine (Pepcid) 20 mg IVPUSH Q12H [facility] Ferrous Sulfate (Ferrous Sulfate) 325 mg PO BIDMEALS [facility] Furosemide (Lasix) 40 mg IVPUSH DAILY [facility] Isosorbide Mononitrate (Imdur) 30 mg PO BEDTIME [facility] Last Admin: 08/08/16 19:12 Dose: 30 mg Levothyroxine Sodium (Levothyroxine) 75 mcg PO BEDTIME [facility] Last Admin: 08/08/16 19:12 Dose: 75 mcg Lorazepam (Ativan) 0.5 mg PO BEDTIME PRN PRN Reason: restlessness Losartan Potassium (Cozaar) 25 mg PO QPM [facility] Last Admin: 08/08/16 17:19 Dose: 25 mg Methyl Salicylate (Icy Hot Cream) 1 gm TOP ASDIRECTED PRN PRN Reason: Pain Last Admin: 08/08/16 15:53 Dose: 1 applic Metoprolol Tartrate (Lopressor) 12.5 mg PO Q12HR [facility] Last Admin: 08/08/16 19:13 Dose: 12.5 mg Morphine Sulfate (Morphine) 2 mg IVPUSH ONETIME ONE Stop: 08/09/16 11:31 Last Admin: 08/08/16 11:37 Dose: 2 mg Nitroglycerin (Nitrostat) 0.4 mg SL ONETIME STA Stop: 08/09/16 09:36 Last Admin: 08/08/16 09:40 Dose: 0.4 mg Nitroglycerin (Nitrostat) 0.4 mg SL ONETIME STA Stop: 08/09/16 10:51 Last Admin: 08/08/16 10:51 Dose: 0.4 mg Non-Formulary Medication (Ketotifen Fumarate [Zaditor]) 1 drop EYEBOTH BEDTIME [facility] Ondansetron HCl (Zofran) 4 mg IVPUSH Q6H PRN PRN Reason: Nausea/Vomiting Last Admin: 08/08/16 22:26 Dose: 4 mg Potassium Chloride (Klor-Con M20) 20 meq PO BID [facility] Sodium Chloride (Saline Flush) 10 ml FLUSH ASDIRECTED PRN PRN Reason: Keep Vein Open Last Admin: 08/09/16 02:01 Dose: 10 ml Sodium Chloride (Saline Flush) 10 ml FLUSH Q12H PRN PRN Reason: Keep Vein Open Tramadol HCl (Ultram) 50 mg PO Q6H PRN PRN Reason: Breakthrough Pain Last Admin: 08/08/16 23:16 Dose: 50 mg Warfarin Sodium (Coumadin) 3 mg PO DAILY@1800 [facility] Discontinued Medications Famotidine (Pepcid) 40 mg IVPUSH ONETIME ONE Stop: 08/08/16 09:08 Last Admin: 08/08/16 09:33 Dose: 40 mg Furosemide (Lasix) 60 mg IVPUSH NOW ONE Stop: 08/08/16 09:22 Last Admin: 08/08/16 09:37 Dose: 60 mg Furosemide (Lasix) 40 mg IVPUSH Q8H [facility] Last Admin: 08/09/16 02:01 Dose: 40 mg Iopamidol (Isovue-370 (76%)) 100 ml IVPUSH ONETIME ONE Stop: 08/08/16 10:16 Last Admin: 08/08/16 10:33 Dose: 100 ml Metoprolol Tartrate (Lopressor) 2.5 mg IVPUSH ONETIME ONE Stop: 08/08/16 09:11 Last Admin: 08/08/16 09:33 Dose: 2.5 mg Ondansetron HCl (Zofran) 4 mg IVPUSH ONETIME ONE Stop: 08/08/16 11:31 Last Admin: 08/08/16 11:35 Dose: 4 mg Potassium Chloride (Klor-Con M20) 20 meq PO TID [facility] Last Admin: 08/08/16 17:19 Dose: 20 meq Warfarin Sodium (Coumadin) 2.5 mg PO ONETIME ONE Stop: 08/08/16 13:04 Last Admin: 08/08/16 13:22 Dose: 2.5 mg - Exam Quality Assessment: supplemental oxygen, DVT prophylaxis General: alert, oriented, cooperative, no acute distress HEENT: Pupils equal, Pupils reactive Neck: supple, trachea midline Lungs: Clear to auscultation, Normal respiratory effort Cardiovascular: Regular Rate, Regular Rhythm, Murmurs Abdomen: bowel sounds present, soft, no tenderness, no distension Back Exam: normal inspection, paraspinal tenderness (tender off to the right side of T 6 to T8 area, no rash noted) Extremities: no edema Peripheral Pulses: 1+: dorsalis pedis (L), dorsalis pedis (R) Skin: warm, dry, intact Neurological: no new focal deficit Psy/Mental Status: alert, normal affect, normal mood - Problem List & Annotations (1) CHF (congestive heart failure) SNOMED Code(s): 30738055 Code(s): I50.9 - HEART FAILURE, UNSPECIFIED Status: Acute Priority: High Current Visit: Yes Onset Date: 07/15/16 Qualifiers: Congestive heart failure type: combined Congestive heart failure chronicity : acute on chronic Qualified Code(s): I50.43 - Acute on chronic combined systolic (congestive) and diastolic (congestive) heart failure Annotation/Comment:: Decreased dose of IV Lasx, Cr slightly elevated. Will continue to monitor (2) Mid back pain on right side SNOMED Code(s): 362227766 Code(s): M54.9 - DORSALGIA, UNSPECIFIED Status: Acute Current Visit: Yes Annotation/Comment:: Will start kpad and muscle rub, pain with palpation. Patient states pain resolved with massage and heat (3) HTN (hypertension) SNOMED Code(s): 68415737 Code(s): I10 - ESSENTIAL (PRIMARY) HYPERTENSION Status: Acute Priority: High Current Visit: Yes Qualifiers: Hypertension type: essential hypertension Qualified Code(s): I10 - Essential (primary) hypertension Annotation/Comment:: Continue on current medications, patient may need dose adjustment done. BP elevated at times, but correlates with pain. SBP 140 this morning (4) Anemia SNOMED Code(s): 669855159 Code(s): D64.9 - ANEMIA, UNSPECIFIED Status: Chronic Priority: Medium Current Visit: Yes Annotation/Comment:: Continue on the iron, iron does not seem to be contributing to patient's nausea. (5) Hypothyroidism SNOMED Code(s): 12991829 Code(s): E03.9 - HYPOTHYROIDISM, UNSPECIFIED Status: Chronic Priority: Medium Current Visit: Yes Annotation/Comment:: Continue on current dose of synthroid, level was slightly elevated and dose already adjusted - Problem List Review Problem List Initiated/Reviewed/Updated: Yes - My Orders Last 24 Hours: My Active Orders 08/09/16 07:30 Heat Therapy [OM.PC] Routine 08/09/16 08:00 Potassium Chloride [Klor-Con M20] 20 meq PO BID 08/09/16 10:00 Furosemide [Lasix] 40 mg IVPUSH DAILY 08/09/16 18:00 Warfarin [Coumadin] 3 mg PO DAILY@1800 08/09/16 Lunch Full Liquid Diet [DIET] - Plan Plan:: 08/09/2016 Patient feels good this morning. Had some right sided paraspinal Tspine pain through the night which was resolved with muscle rub and massage. Patient has no recent injury to her back or shoulder. Patient has known chronic pain due to arthritis and fibromyalgia. States her hands and feet started to swell over the last few days, better this morning. Labs reviewed. Cr slightly elevated, will decrease IV Lasix and potassium. Coumadin dosed per INR, continue on the sub Q Lovenox until INR therapeutic. Recheck labs in the am. Patient had nausea which was correlated with pain, denies any nausea this morning. Will try heat to back area. Consider T spine Xrays if the pain doesnt improve with heat. Continue with oral tramadol, patient states it is helping with her pain. Will discuss with Dr Sheets. Yarelis Amezcua,PROFESSOR OF OCEANOGRAPHY
[2016-08-09] MEDS: Ferrous Sulfate 325 MG Tab PO SCH ×2 (07:52→17:12)
[2016-08-09] MEDS: Potassium Chloride 20 MEQ Tab.ER PO SCH ×2 (07:53→17:12)
[2016-08-09] MEDS: Metoprolol Tartrate 25 MG Tab PO SCH ×2 (07:53→19:17)
[2016-08-09] MEDS: amLODIPine 5 MG Tab PO SCH ×2 (07:54→19:17)
[2016-08-09] MEDS: Famotidine 20 MG/2 ML SDV IVPUSH SCH ×2 (07:55→19:16)
[2016-08-09] MEDS: Enoxaparin 40 MG/0.4 ML Syringe SUBCUT SCH (10:54)
[2016-08-09] MEDS: Menthol/Methyl Salicylate 85 GM Tube TOP PRN (14:32)
[2016-08-09] MEDS: Acetaminophen 325 MG Tab PO PRN (14:32)
[2016-08-09] MEDS: Ondansetron 4 MG/2 ML SDV IVPUSH PRN (14:32)
[2016-08-09] MEDS: traMADol 50 MG Tab PO PRN (15:42)
[2016-08-09] MEDS: Losartan 50 MG Tab PO SCH (17:12)
[2016-08-09] MEDS: Isosorbide Mononitrate 30 MG Tab.ER PO SCH (19:16)
[2016-08-09] MEDS: Levothyroxine 75 MCG Tab PO SCH (19:18)
[2016-08-10] MEDS: traMADol 50 MG Tab PO PRN ×2 (02:54→16:39)
[2016-08-10] MEDS: Ondansetron 4 MG/2 ML SDV IVPUSH PRN (02:54)
[2016-08-10] MEDS: Sodium Chloride 0.9% 10 ML Syringe FLUSH PRN ×3 (02:55→19:40)
[2016-08-10] MEDS: amLODIPine 5 MG Tab PO SCH ×2 (08:15→19:38)
[2016-08-10] MEDS: Ferrous Sulfate 325 MG Tab PO SCH ×2 (08:16→17:19)
[2016-08-10] MEDS: Metoprolol Tartrate 25 MG Tab PO SCH ×2 (08:17→19:38)
[2016-08-10] MEDS: Furosemide 40 MG/4 ML VIAL IVPUSH SCH (08:18)
[2016-08-10] MEDS: Famotidine 20 MG/2 ML SDV IVPUSH SCH ×2 (08:18→19:38)
[2016-08-10] MEDS: Docusate Sodium 100 MG Cap PO PRN ×2 (08:30→19:46)
[2016-08-10] MEDS: Menthol/Methyl Salicylate 85 GM Tube TOP PRN (08:31)
--- NOTE | 2016-08-10 08:52 | PCM.PN ---
- General Info Date of Service: 08/10/16 Admission Dx/Problem (Free Text): CHF Right mid back strain HTN Functional Status: Reports: pain controlled (with heat topically and pain pill) - Review of Systems General: Reports: Weakness HEENT: Reports: no symptoms Pulmonary: Reports: no symptoms Cardiovascular: Reports: No Symptoms Gastrointestinal: Reports: Nausea (nausea this morning, some bloating this morning. Last BM couple days ago) Genitourinary: Reports: no symptoms Musculoskeletal: Reports: back pain Skin: Reports: no symptoms Neurological: Reports: No Symptoms Psychiatric: Reports: no symptoms - Patient Data Vitals - most recent: Last Vital Signs Temp 98.2 F 08/10/16 07:21 Pulse 71 08/10/16 08:17 Resp 18 08/10/16 07:21 BP 151/78 H 08/10/16 08:17 Pulse Ox 96 08/10/16 07:21 Weight - most recent: 170 lb 6.4 oz I&O - last 24 hours: Intake & Output 08/09/16 08/10/16 08/10/16 22:59 06:59 14:59 Intake Total 470 360 Output Total 400 150 200 Balance 70 -150 160 Lab Results last 24 hrs: Laboratory Results - last 24 hr 08/10/16 08/10/16 08/10/16 Range/Units 07:10 07:10 07:10 WBC 6.4 (4.0-10.2) K/uL RBC 3.83 (3.77-5.09) M/uL Hgb 10.4 L (11.7-15.5) g/dL Hct 32.5 L (34.0-46.0) % MCV 84.9 (84.0-98.0) fL MCH 27.2 L (28.2-33.3) pg MCHC 32.0 (31.7-36.0) g/dL RDW 15.1 H (11.2-14.1) % Plt Count 287 (150-350) K/uL Neut % (Auto) 66.2 (45.0-80.0) % Lymph % (Auto) 20.0 (10.0-50.0) % [place] % (Auto) 10.8 (2.0-14.0) % Eos % (Auto) 2.2 (0.0-5.0) % Baso % (Auto) 0.8 (0.0-2.0) % Neut # 4.23 (1.40-7.00) K/uL Lymph # 1.28 (0.50-3.50) K/uL [place] # 0.69 (0.00-1.00) K/uL Eos # 0.14 (0.00-0.50) K/uL Baso # 0.05 (0.00-0.20) K/uL PT 17.3 H (9.8-11.7) SEC INR 1.6 Sodium 132 L (136-145) mmol/L Potassium 5.0 (3.5-5.1) mmol/L Chloride 96 L (98-107) mmol/L Carbon Dioxide 31.1 (21.0-32.0) mmol/L BUN 26 H (7-18) mg/dL Creatinine 1.19 H (0.51-1.17) mg/dL Est Cr Clr Drug Dosing 28.76 mL/min Estimated GFR (MDRD) 43 mL/min Glucose 110 H (74-106) mg/dL Calcium 8.8 (8.5-10.1) mg/dL Total Bilirubin 0.3 (0.2-1.0) mg/dL AST 20 (15-37) U/L ALT 19 (12-78) U/L Alkaline Phosphatase 72 (46-116) IU/L [id number]-Omzhcoaddjt Pept 742 H (0-125) pg/mL Total Protein 6.7 (6.4-8.2) g/dL Albumin 3.1 L (3.4-5.0) g/dL Med Orders - Current: Current Medications Acetaminophen (Tylenol) 650 mg PO Q4HR PRN PRN Reason: Pain/Fever Last Admin: 08/09/16 14:32 Dose: 650 mg Amlodipine Besylate (Norvasc) 2.5 mg PO Q12HR [facility] Last Admin: 08/10/16 08:15 Dose: 2.5 mg Docusate Sodium (Colace) 100 mg PO BID PRN PRN Reason: Constipation Last Admin: 08/10/16 08:30 Dose: 100 mg Enoxaparin Sodium (Lovenox) 70 mg SUBCUT Q24H [facility] Last Admin: 08/09/16 10:54 Dose: 70 mg Famotidine (Pepcid) 20 mg IVPUSH Q12H [facility] Last Admin: 08/10/16 08:18 Dose: 20 mg Ferrous Sulfate (Ferrous Sulfate) 325 mg PO BIDMEALS [facility] Last Admin: 08/10/16 08:16 Dose: 325 mg Furosemide (Lasix) 40 mg IVPUSH DAILY [facility] Last Admin: 08/10/16 08:18 Dose: 40 mg Isosorbide Mononitrate (Imdur) 30 mg PO BEDTIME [facility] Last Admin: 08/09/16 19:16 Dose: 30 mg Levothyroxine Sodium (Levothyroxine) 75 mcg PO BEDTIME [facility] Last Admin: 08/09/16 19:18 Dose: 75 mcg Lorazepam (Ativan) 0.5 mg PO BEDTIME PRN PRN Reason: restlessness Losartan Potassium (Cozaar) 25 mg PO QPM [facility] Last Admin: 08/09/16 17:12 Dose: 25 mg Methyl Salicylate (Icy Hot Cream) 1 gm TOP ASDIRECTED PRN PRN Reason: Pain Last Admin: 08/10/16 08:31 Dose: 1 applic Metoprolol Tartrate (Lopressor) 12.5 mg PO Q12HR [facility] Last Admin: 08/10/16 08:17 Dose: 12.5 mg Ondansetron HCl (Zofran) 4 mg IVPUSH Q6H PRN PRN Reason: Nausea/Vomiting Last Admin: 08/10/16 02:54 Dose: 4 mg Sodium Chloride (Saline Flush) 10 ml FLUSH ASDIRECTED PRN PRN Reason: Keep Vein Open Last Admin: 08/10/16 08:20 Dose: 10 ml Sodium Chloride (Saline Flush) 10 ml FLUSH Q12H PRN PRN Reason: Keep Vein Open Tramadol HCl (Ultram) 50 mg PO Q6H PRN PRN Reason: Breakthrough Pain Last Admin: 08/10/16 02:54 Dose: 50 mg Warfarin Sodium (Coumadin) 3 mg PO DAILY@1800 [facility] Last Admin: 08/09/16 17:13 Dose: 3 mg Discontinued Medications Famotidine (Pepcid) 40 mg IVPUSH ONETIME ONE Stop: 08/08/16 09:08 Last Admin: 08/08/16 09:33 Dose: 40 mg Furosemide (Lasix) 60 mg IVPUSH NOW ONE Stop: 08/08/16 09:22 Last Admin: 08/08/16 09:37 Dose: 60 mg Furosemide (Lasix) 40 mg IVPUSH Q8H [facility] Last Admin: 08/09/16 02:01 Dose: 40 mg Iopamidol (Isovue-370 (76%)) 100 ml IVPUSH ONETIME ONE Stop: 08/08/16 10:16 Last Admin: 08/08/16 10:33 Dose: 100 ml Metoprolol Tartrate (Lopressor) 2.5 mg IVPUSH ONETIME ONE Stop: 08/08/16 09:11 Last Admin: 08/08/16 09:33 Dose: 2.5 mg Morphine Sulfate (Morphine) 2 mg IVPUSH ONETIME ONE Stop: 08/09/16 11:31 Last Admin: 08/08/16 11:37 Dose: 2 mg Nitroglycerin (Nitrostat) 0.4 mg SL ONETIME STA Stop: 08/09/16 09:36 Last Admin: 08/08/16 09:40 Dose: 0.4 mg Nitroglycerin (Nitrostat) 0.4 mg SL ONETIME STA Stop: 08/09/16 10:51 Last Admin: 08/08/16 10:51 Dose: 0.4 mg Non-Formulary Medication (Ketotifen Fumarate [Zaditor]) 1 drop EYEBOTH BEDTIME [facility] Ondansetron HCl (Zofran) 4 mg IVPUSH ONETIME ONE Stop: 08/08/16 11:31 Last Admin: 08/08/16 11:35 Dose: 4 mg Potassium Chloride (Klor-Con M20) 20 meq PO TID [facility] Last Admin: 08/08/16 17:19 Dose: 20 meq Potassium Chloride (Klor-Con M20) 20 meq PO BID [facility] Last Admin: 08/09/16 17:12 Dose: 20 meq Warfarin Sodium (Coumadin) 2.5 mg PO ONETIME ONE Stop: 08/08/16 13:04 Last Admin: 08/08/16 13:22 Dose: 2.5 mg - Exam Quality Assessment: DVT prophylaxis General: alert, oriented, cooperative HEENT: Pupils equal, Pupils reactive Neck: supple, trachea midline Lungs: Clear to auscultation, Normal respiratory effort Cardiovascular: Regular Rate, Regular Rhythm, Murmurs Abdomen: bowel sounds present, soft, no distension, tenderness (tender to RUQ to palpation) Back Exam: normal inspection (tender over the Tspine and off to right paraspinal muscles along T8 to T12 area) Extremities: no edema Peripheral Pulses: 1+: dorsalis pedis (L), dorsalis pedis (R) Skin: warm, dry, intact Neurological: no new focal deficit Psy/Mental Status: alert, normal affect, normal mood - Problem List & Annotations (1) CHF (congestive heart failure) SNOMED Code(s): 86495432 Code(s): I50.9 - HEART FAILURE, UNSPECIFIED Status: Acute Priority: High Current Visit: Yes Onset Date: 07/15/16 Qualifiers: Congestive heart failure type: combined Congestive heart failure chronicity : acute on chronic Qualified Code(s): I50.43 - Acute on chronic combined systolic (congestive) and diastolic (congestive) heart failure Annotation/Comment:: Continue with IV Lasix, dc/d potassium. Recheck labs in the am (2) Mid back pain on right side SNOMED Code(s): 726765531 Code(s): M54.9 - DORSALGIA, UNSPECIFIED Status: Acute Current Visit: Yes Annotation/Comment:: Will start kpad and muscle rub, pain with palpation. Patient states pain resolved with massage and heat. Ordered T spine Xray to rule out compression fracture (3) HTN (hypertension) SNOMED Code(s): 93592533 Code(s): I10 - ESSENTIAL (PRIMARY) HYPERTENSION Status: Acute Priority: High Current Visit: Yes Qualifiers: Hypertension type: essential hypertension Qualified Code(s): I10 - Essential (primary) hypertension Annotation/Comment:: Continue on current medications (4) Anemia SNOMED Code(s): 967012185 Code(s): D64.9 - ANEMIA, UNSPECIFIED Status: Chronic Priority: Medium Current Visit: Yes Annotation/Comment:: Continue on the iron, iron does not seem to be contributing to patient's nausea. (5) Hypothyroidism SNOMED Code(s): 97919485 Code(s): E03.9 - HYPOTHYROIDISM, UNSPECIFIED Status: Chronic Priority: Medium Current Visit: Yes Annotation/Comment:: Continue on current dose of synthroid, level was slightly elevated and dose already adjusted - Problem List Review Problem List Initiated/Reviewed/Updated: Yes - My Orders Last 24 Hours: My Active Orders 08/09/16 10:00 Furosemide [Lasix] 40 mg IVPUSH DAILY 08/09/16 18:00 Warfarin [Coumadin] 3 mg PO DAILY@1800 08/09/16 Lunch Full Liquid Diet [DIET] 08/10/16 08:45 Thoracic Spine 3V [CR] Routine 08/11/16 05:11 CBC WITH AUTO DIFF [HEME] DAILY COMPREHENSIVE METABOLIC PN,CMP [CHEM] DAILY INR,PT,PROTHROMBIN TIME [COAG] DAILY PRO B-TYPE NATRIUR PEPT,BNPPRO [CHEM] DAILY 08/11/16 08:00 Abdomen Comp [US] Routine 08/12/16 05:11 CBC WITH AUTO DIFF [HEME] DAILY COMPREHENSIVE METABOLIC PN,CMP [CHEM] DAILY INR,PT,PROTHROMBIN TIME [COAG] DAILY PRO B-TYPE NATRIUR PEPT,BNPPRO [CHEM] DAILY - Plan Plan:: 08/09/2016 Patient feels good this morning. Had some right sided paraspinal Tspine pain through the night which was resolved with muscle rub and massage. Patient has no recent injury to her back or shoulder. Patient has known chronic pain due to arthritis and fibromyalgia. States her hands and feet started to swell over the last few days, better this morning. Labs reviewed. Cr slightly elevated, will decrease IV Lasix and potassium. Coumadin dosed per INR, continue on the sub Q Lovenox until INR therapeutic. Recheck labs in the am. Patient had nausea which was correlated with pain, denies any nausea this morning. Will try heat to back area. Consider T spine Xrays if the pain doesnt improve with heat. Continue with oral tramadol, patient states it is helping with her pain. Will discuss with Dr Blackman. Yarelis Amezcua CNP 08/10/2016 Labs reviewed, potassium discontinued and will recheck labs in the am. Patient continues with mid back pain and right paraspinal muscle pain with some nausea. States pain started after getting up in the morning and moving a pillow on her bed. Ordered T spine Xrays and ultrasound to check for gall stones. Patient having some nausea and RUQ pain into the shoulder blade area. Continue with heat , muscle rub and oral pain pills for pain management, keeps patient's pain 2 to 3 out of 10. Continue on Lovenox until INR 2.0. Discussed with the patient, she verbalized understanding. Order PT/OT consult. Yarelis Amezcua CNP
[2016-08-10] MEDS: Enoxaparin 40 MG/0.4 ML Syringe SUBCUT SCH (11:22)
[2016-08-10] MEDS: KETOTIFEN FUMARATE EYEBOTH SCH ×2 (11:47→20:02)
[2016-08-10] MEDS: Acetaminophen 325 MG Tab PO PRN (16:38)
[2016-08-10] MEDS: Losartan 50 MG Tab PO SCH (17:21)
[2016-08-10] MEDS: Isosorbide Mononitrate 30 MG Tab.ER PO SCH (19:38)
[2016-08-10] MEDS: Levothyroxine 75 MCG Tab PO SCH (19:38)
[2016-08-10] MEDS: LORazepam 0.5 MG Tab PO PRN (19:38)
[2016-08-11] MEDS: Menthol/Methyl Salicylate 85 GM Tube TOP PRN (04:53)
[2016-08-11] MEDS: traMADol 50 MG Tab PO PRN (04:53)
[2016-08-11] MEDS: Sodium Chloride 0.9% 10 ML Syringe FLUSH PRN ×2 (05:29→07:11)
[2016-08-11] MEDS: Ondansetron 4 MG/2 ML SDV IVPUSH PRN (05:29)
[2016-08-11] MEDS: Ferrous Sulfate 325 MG Tab PO SCH ×2 (07:07→17:01)
[2016-08-11] MEDS: Famotidine 20 MG/2 ML SDV IVPUSH SCH ×2 (07:08→19:52)
[2016-08-11] MEDS: Metoprolol Tartrate 25 MG Tab PO SCH ×2 (07:08→19:58)
[2016-08-11] MEDS: Furosemide 40 MG/4 ML VIAL IVPUSH SCH (07:08)
[2016-08-11] MEDS: amLODIPine 5 MG Tab PO SCH ×2 (07:09→19:57)
[2016-08-11] MEDS: Enoxaparin 40 MG/0.4 ML Syringe SUBCUT SCH (09:17)
[2016-08-11] MEDS: Docusate Sodium 100 MG Cap PO PRN (12:40)
[2016-08-11] MEDS: Losartan 50 MG Tab PO SCH (17:01)
[2016-08-11] MEDS: Isosorbide Mononitrate 30 MG Tab.ER PO SCH (19:54)
[2016-08-11] MEDS: Levothyroxine 75 MCG Tab PO SCH (19:54)
[2016-08-11] MEDS: LORazepam 0.5 MG Tab PO PRN (20:06)
--- NOTE | 2016-08-11 21:04 | PCM.PN ---
- General Info Date of Service: 08/11/16 Functional Status: Reports: pain controlled, tolerating diet - Review of Systems General: Reports: No Symptoms HEENT: Reports: no symptoms Pulmonary: Reports: no symptoms Cardiovascular: Reports: No Symptoms Gastrointestinal: Reports: No symptoms Genitourinary: Reports: no symptoms Musculoskeletal: Reports: no symptoms Skin: Reports: no symptoms Neurological: Reports: No Symptoms Psychiatric: Reports: no symptoms - Patient Data Vitals - most recent: Last Vital Signs Temp 97.7 F 08/11/16 19:48 Pulse 72 08/11/16 19:58 Resp 18 08/11/16 19:48 BP 179/90 H 08/11/16 19:58 Pulse Ox 92 L 08/11/16 20:00 Weight - most recent: 170 lb 6.395 oz I&O - last 24 hours: Intake & Output 08/11/16 08/11/16 08/11/16 06:59 14:59 22:59 Intake Total 810 1000 Output Total 800 450 Balance 10 550 Lab Results last 24 hrs: Laboratory Results - last 24 hr 08/11/16 08/11/16 08/11/16 Range/Units 06:45 06:45 06:45 WBC 4.8 (4.0-10.2) K/uL RBC 3.90 (3.77-5.09) M/uL Hgb 10.6 L (11.7-15.5) g/dL Hct 32.8 L (34.0-46.0) % MCV 84.1 (84.0-98.0) fL MCH 27.2 L (28.2-33.3) pg MCHC 32.3 (31.7-36.0) g/dL RDW 14.9 H (11.2-14.1) % Plt Count 277 (150-350) K/uL Neut % (Auto) 59.4 (45.0-80.0) % Lymph % (Auto) 23.9 (10.0-50.0) % [place] % (Auto) 13.0 (2.0-14.0) % Eos % (Auto) 3.1 (0.0-5.0) % Baso % (Auto) 0.6 (0.0-2.0) % Neut # 2.83 (1.40-7.00) K/uL Lymph # 1.14 (0.50-3.50) K/uL [place] # 0.62 (0.00-1.00) K/uL Eos # 0.15 (0.00-0.50) K/uL Baso # 0.03 (0.00-0.20) K/uL PT 20.7 H (9.8-11.7) SEC INR 1.9 Sodium 130 L (136-145) mmol/L Potassium 4.6 (3.5-5.1) mmol/L Chloride 93 L (98-107) mmol/L Carbon Dioxide 29.4 (21.0-32.0) mmol/L BUN 23 H (7-18) mg/dL Creatinine 0.95 (0.51-1.17) mg/dL Est Cr Clr Drug Dosing 36.03 mL/min Estimated GFR (MDRD) 56 mL/min Glucose 111 H (74-106) mg/dL Calcium 8.4 L (8.5-10.1) mg/dL Total Bilirubin 0.2 (0.2-1.0) mg/dL AST 22 (15-37) U/L ALT 21 (12-78) U/L Alkaline Phosphatase 74 (46-116) IU/L Ahe-H-Gxmxotjzhiw Pept 1049 H (0-125) pg/mL Total Protein 6.6 (6.4-8.2) g/dL Albumin 3.1 L (3.4-5.0) g/dL Med Orders - Current: Current Medications Acetaminophen (Tylenol) 650 mg PO Q4HR PRN PRN Reason: Pain/Fever Last Admin: 08/10/16 16:38 Dose: 650 mg Amlodipine Besylate (Norvasc) 2.5 mg PO Q12HR [facility] Last Admin: 08/11/16 19:57 Dose: 2.5 mg Docusate Sodium (Colace) 100 mg PO BID PRN PRN Reason: Constipation Last Admin: 08/11/16 12:40 Dose: 100 mg Famotidine (Pepcid) 20 mg IVPUSH Q12H [facility] Last Admin: 08/11/16 19:52 Dose: 20 mg Isosorbide Mononitrate (Imdur) 60 mg PO BEDTIME [facility] Levothyroxine Sodium (Levothyroxine) 75 mcg PO BEDTIME [facility] Last Admin: 08/11/16 19:54 Dose: 75 mcg Lorazepam (Ativan) 0.5 mg PO BEDTIME PRN PRN Reason: restlessness Last Admin: 08/11/16 20:06 Dose: 0.5 mg Losartan Potassium (Cozaar) 25 mg PO QPM [facility] Last Admin: 08/11/16 17:01 Dose: 25 mg Methyl Salicylate (Icy Hot Cream) 1 gm TOP ASDIRECTED PRN PRN Reason: Pain Last Admin: 08/11/16 04:53 Dose: 1 applic Metoprolol Tartrate (Lopressor) 12.5 mg PO Q12HR [facility] Last Admin: 08/11/16 19:58 Dose: 12.5 mg Ondansetron HCl (Zofran) 4 mg IVPUSH Q6H PRN PRN Reason: Nausea/Vomiting Last Admin: 08/11/16 05:29 Dose: 4 mg Sodium Chloride (Saline Flush) 10 ml FLUSH ASDIRECTED PRN PRN Reason: Keep Vein Open Last Admin: 08/11/16 07:11 Dose: 10 ml Sodium Chloride (Saline Flush) 10 ml FLUSH Q12HR [facility] Tramadol HCl (Ultram) 50 mg PO Q6H PRN PRN Reason: Breakthrough Pain Last Admin: 08/11/16 04:53 Dose: 50 mg Warfarin Sodium (Coumadin) 3 mg PO DAILY@1800 [facility] Last Admin: 08/11/16 17:02 Dose: 3 mg Discontinued Medications Enoxaparin Sodium (Lovenox) 70 mg SUBCUT Q24H [facility] Last Admin: 08/11/16 09:17 Dose: 70 mg Famotidine (Pepcid) 40 mg IVPUSH ONETIME ONE Stop: 08/08/16 09:08 Last Admin: 08/08/16 09:33 Dose: 40 mg Ferrous Sulfate (Ferrous Sulfate) 325 mg PO BIDMEALS [facility] Last Admin: 08/11/16 17:01 Dose: 325 mg Furosemide (Lasix) 60 mg IVPUSH NOW ONE Stop: 08/08/16 09:22 Last Admin: 08/08/16 09:37 Dose: 60 mg Furosemide (Lasix) 40 mg IVPUSH Q8H [facility] Last Admin: 08/09/16 02:01 Dose: 40 mg Furosemide (Lasix) 40 mg IVPUSH DAILY [facility] Last Admin: 08/11/16 07:08 Dose: 40 mg Iopamidol (Isovue-370 (76%)) 100 ml IVPUSH ONETIME ONE Stop: 08/08/16 10:16 Last Admin: 08/08/16 10:33 Dose: 100 ml Isosorbide Mononitrate (Imdur) 30 mg PO BEDTIME [facility] Last Admin: 08/11/16 19:54 Dose: 30 mg Metoprolol Tartrate (Lopressor) 2.5 mg IVPUSH ONETIME ONE Stop: 08/08/16 09:11 Last Admin: 08/08/16 09:33 Dose: 2.5 mg Morphine Sulfate (Morphine) 2 mg IVPUSH ONETIME ONE Stop: 08/09/16 11:31 Last Admin: 08/08/16 11:37 Dose: 2 mg Nitroglycerin (Nitrostat) 0.4 mg SL ONETIME STA Stop: 08/09/16 09:36 Last Admin: 08/08/16 09:40 Dose: 0.4 mg Nitroglycerin (Nitrostat) 0.4 mg SL ONETIME STA Stop: 08/09/16 10:51 Last Admin: 08/08/16 10:51 Dose: 0.4 mg Non-Formulary Medication (Ketotifen Fumarate [Zaditor]) 1 drop EYEBOTH BEDTIME [facility] Last Admin: 08/10/16 20:02 Dose: Not Given Ondansetron HCl (Zofran) 4 mg IVPUSH ONETIME ONE Stop: 08/08/16 11:31 Last Admin: 08/08/16 11:35 Dose: 4 mg Potassium Chloride (Klor-Con M20) 20 meq PO TID [facility] Last Admin: 08/08/16 17:19 Dose: 20 meq Potassium Chloride (Klor-Con M20) 20 meq PO BID [facility] Last Admin: 08/09/16 17:12 Dose: 20 meq Sodium Chloride (Saline Flush) 10 ml FLUSH Q12H PRN PRN Reason: Keep Vein Open Last Admin: 08/11/16 19:53 Dose: 10 ml Warfarin Sodium (Coumadin) 2.5 mg PO ONETIME ONE Stop: 08/08/16 13:04 Last Admin: 08/08/16 13:22 Dose: 2.5 mg - Exam Quality Assessment: DVT prophylaxis General: alert, cooperative, no acute distress HEENT: Mucous membr. moist/pink Neck: trachea midline, no JVD Lungs: Normal respiratory effort Cardiovascular: Regular Rate, Regular Rhythm Abdomen: bowel sounds present, soft, no tenderness, no distension (Female) Exam: Deferred Back Exam: normal inspection Extremities: no edema Skin: warm, dry, intact Neurological: no new focal deficit Psy/Mental Status: alert, anxious - Problem List Review Problem List Initiated/Reviewed/Updated: Yes - My Orders Last 24 Hours: My Active Orders 08/11/16 20:56 Chest 2V [CR] Routine 08/12/16 05:11 BLOOD GAS VENOUS [BG] Routine CRP [C-REACTIVE PROTEIN] [CHEM] Routine 08/12/16 08:00 Abdomen Pelvis wo Cont [CT] Routine Sodium Chloride 0.9% [Saline Flush] 10 ml FLUSH Q12HR 08/12/16 20:00 Isosorbide Mononitrate [Imdur] 60 mg PO BEDTIME - Plan Plan:: 08/09/2016 Patient feels good this morning. Had some right sided paraspinal Tspine pain through the night which was resolved with muscle rub and massage. Patient has no recent injury to her back or shoulder. Patient has known chronic pain due to arthritis and fibromyalgia. States her hands and feet started to swell over the last few days, better this morning. Labs reviewed. Cr slightly elevated, will decrease IV Lasix and potassium. Coumadin dosed per INR, continue on the sub Q Lovenox until INR therapeutic. Recheck labs in the am. Patient had nausea which was correlated with pain, denies any nausea this morning. Will try heat to back area. Consider T spine Xrays if the pain doesnt improve with heat. Continue with oral tramadol, patient states it is helping with her pain. Will discuss with Dr Blackman. Yarelis Amezcua,JOSÉ MIGUEL 08/10/2016 Labs reviewed, potassium discontinued and will recheck labs in the am. Patient continues with mid back pain and right paraspinal muscle pain with some nausea. States pain started after getting up in the morning and moving a pillow on her bed. Ordered T spine Xrays and ultrasound to check for gall stones. Patient having some nausea and RUQ pain into the shoulder blade area. Continue with heat , muscle rub and oral pain pills for pain management, keeps patient's pain 2 to 3 out of 10. Continue on Lovenox until INR 2.0. Discussed with the patient, she verbalized understanding. Order PT/OT consult. Yarelis Amezcua,JOSÉ MIGUEL 08/11/16 Yehuda Quintana MD PT helping pain. U/S possible mass liver. Recommend CT scan. She is allergic to iodine. INR 1.9.
[2016-08-11] MEDS ORDERED: methylPREDNISolone Sodium Succinate 40 MG/1 ML SDV IVPUSH SCH (21:15)
[2016-08-12 07:01] LABS: O2 DELIVERY DEVICE ROOM AIR; O2 FLOW RATE 0 L/min
[2016-08-12 07:15] LABS: BASE EXCESS VENOUS 8 mmol/L ((-2)-3); BICARBONATE,VENOUS 31 mmol/L (23-28); O2 SATURATION VENOUS 97 %; PCO2 VENOUS 41 mmHG (41-51); PH,VENOUS 7.49 (7.31-7.41); PO2 VENOUS 84 mmHG
[2016-08-12] MEDS ORDERED: Iopamidol 612 MG/ML 100 ML Bottle IVPUSH ONE (08:50)
[2016-08-12] MEDS ORDERED: Iopamidol 755 Mg/ML 100 ML Bottle IVPUSH ONE (08:58)
[2016-08-12] MEDS: methylPREDNISolone Sodium Succinate 40 MG/1 ML SDV IVPUSH SCH ×2 (09:22→20:12)
[2016-08-12] MEDS: Famotidine 20 MG/2 ML SDV IVPUSH SCH ×2 (09:22→20:17)
[2016-08-12] MEDS: Metoprolol Tartrate 25 MG Tab PO SCH ×2 (09:22→20:16)
[2016-08-12] MEDS: amLODIPine 5 MG Tab PO SCH ×2 (09:23→20:17)
[2016-08-12] MEDS: Sodium Chloride 0.9% 10 ML Syringe FLUSH SCH ×2 (09:23→20:12)
[2016-08-12] MEDS ORDERED: Magnesium Hydroxide 400 MG/5 ML Susp 30 ML Cup PO PRN (12:39)
[2016-08-12] MEDS: Losartan 50 MG Tab PO SCH (18:07)
[2016-08-12] MEDS ORDERED: Isosorbide Mononitrate 60 MG Tab.ER PO SCH (20:00)
[2016-08-12] MEDS: LORazepam 0.5 MG Tab PO PRN (20:15)
[2016-08-12] MEDS: Acetaminophen 325 MG Tab PO PRN (20:15)
[2016-08-12] MEDS: Sodium Chloride 0.9% 10 ML Syringe FLUSH PRN (20:15)
[2016-08-12] MEDS: Levothyroxine 75 MCG Tab PO SCH (20:16)
--- NOTE | 2016-08-12 21:49 | PCM.PN ---
[id number] of Systems General: Reports: No Symptoms HEENT: Reports: no symptoms Pulmonary: Reports: no symptoms Cardiovascular: Reports: No Symptoms Gastrointestinal: Reports: No symptoms Genitourinary: Reports: no symptoms Musculoskeletal: Reports: no symptoms Skin: Reports: no symptoms Neurological: Reports: No Symptoms Psychiatric: Reports: no symptoms - Patient Data Vitals - most recent: Last Vital Signs Temp 97.2 F 08/12/16 12:33 Pulse 78 08/12/16 20:16 Resp 18 08/12/16 12:33 BP 164/54 H 08/12/16 20:16 Pulse Ox 98 08/12/16 12:33 Weight - most recent: 168 lb I&O - last 24 hours: Intake & Output 08/12/16 08/12/16 08/12/16 06:59 14:59 22:59 Intake Total 450 440 Output Total 400 650 Balance -400 -200 440 Lab Results last 24 hrs: Laboratory Results - last 24 hr 08/12/16 08/12/16 08/12/16 Range/Units 06:55 06:55 06:55 WBC 3.8 L (4.0-10.2) K/uL RBC 4.01 (3.77-5.09) M/uL Hgb 10.8 L (11.7-15.5) g/dL Hct 32.9 L (34.0-46.0) % MCV 82.0 L (84.0-98.0) fL MCH 26.9 L (28.2-33.3) pg MCHC 32.8 (31.7-36.0) g/dL RDW 14.6 H (11.2-14.1) % Plt Count 295 (150-350) K/uL Neut % (Auto) 77.7 (45.0-80.0) % Lymph % (Auto) 19.2 (10.0-50.0) % [place] % (Auto) 2.6 (2.0-14.0) % Eos % (Auto) 0.0 (0.0-5.0) % Baso % (Auto) 0.5 (0.0-2.0) % Neut # 2.96 (1.40-7.00) K/uL Lymph # 0.73 (0.50-3.50) K/uL [place] # 0.10 (0.00-1.00) K/uL Eos # 0.00 (0.00-0.50) K/uL Baso # 0.02 (0.00-0.20) K/uL PT 22.1 H (9.8-11.7) SEC INR 2.0 VBG pH (7.31-7.41) VBG pCO2 (41-51) mmHG VBG pO2 mmHG VBG HCO3 (23-28) mmol/L VBG Total CO2 mmol/L VBG O2 Saturation % VBG Base Excess ((-2)-3) mmol/L O2 Delivery Device Oxygen Flow Rate L/min Sodium 128 L (136-145) mmol/L Potassium 5.1 (3.5-5.1) mmol/L Chloride 92 L (98-107) mmol/L Carbon Dioxide 27.8 (21.0-32.0) mmol/L BUN 24 H (7-18) mg/dL Creatinine 1.02 (0.51-1.17) mg/dL Est Cr Clr Drug Dosing 33.80 mL/min Estimated GFR (MDRD) 51 mL/min Glucose 146 H (74-106) mg/dL Calcium 8.9 (8.5-10.1) mg/dL Total Bilirubin 0.3 (0.2-1.0) mg/dL AST 38 H (15-37) U/L ALT 32 (12-78) U/L Alkaline Phosphatase 79 (46-116) IU/L C-Reactive Protein 0.5 (<=0.9) mg/dL [id number] Pept 999 H (0-125) pg/mL Total Protein 7.0 (6.4-8.2) g/dL Albumin 3.1 L (3.4-5.0) g/dL 08/12/16 Range/Units 06:55 WBC (4.0-10.2) K/uL RBC (3.77-5.09) M/uL Hgb (11.7-15.5) g/dL Hct (34.0-46.0) % MCV (84.0-98.0) fL MCH (28.2-33.3) pg MCHC (31.7-36.0) g/dL RDW (11.2-14.1) % Plt Count (150-350) K/uL Neut % (Auto) (45.0-80.0) % Lymph % (Auto) (10.0-50.0) % [place] % (Auto) (2.0-14.0) % Eos % (Auto) (0.0-5.0) % Baso % (Auto) (0.0-2.0) % Neut # (1.40-7.00) K/uL Lymph # (0.50-3.50) K/uL [place] # (0.00-1.00) K/uL Eos # (0.00-0.50) K/uL Baso # (0.00-0.20) K/uL PT (9.8-11.7) SEC INR VBG pH 7.49 H (7.31-7.41) VBG pCO2 41 (41-51) mmHG VBG pO2 84 mmHG VBG HCO3 31 H (23-28) mmol/L VBG Total CO2 32 mmol/L VBG O2 Saturation 97 % VBG Base Excess 8 H ((-2)-3) mmol/L O2 Delivery Device Room air Oxygen Flow Rate 0 L/min Sodium (136-145) mmol/L Potassium (3.5-5.1) mmol/L Chloride (98-107) mmol/L Carbon Dioxide (21.0-32.0) mmol/L BUN (7-18) mg/dL Creatinine (0.51-1.17) mg/dL Est Cr Clr Drug Dosing mL/min Estimated GFR (MDRD) mL/min Glucose (74-106) mg/dL Calcium (8.5-10.1) mg/dL Total Bilirubin (0.2-1.0) mg/dL AST (15-37) U/L ALT (12-78) U/L Alkaline Phosphatase (46-116) IU/L C-Reactive Protein (<=0.9) mg/dL [id number] Pept (0-125) pg/mL Total Protein (6.4-8.2) g/dL Albumin (3.4-5.0) g/dL Chet Results last 24 hrs: Microbiology 08/12/16 15:30 Stool Occult Blood (CHET) - Final Stool / Feces NEGATIVE OCCULT BLOOD Med Orders - Current: Current Medications Acetaminophen (Tylenol) 650 mg PO Q4HR PRN PRN Reason: Pain/Fever Last Admin: 08/12/16 20:15 Dose: 650 mg Amlodipine Besylate (Norvasc) 2.5 mg PO Q12HR [facility] Last Admin: 08/12/16 20:17 Dose: 2.5 mg Docusate Sodium (Colace) 100 mg PO BID PRN PRN Reason: Constipation Last Admin: 08/11/16 12:40 Dose: 100 mg Famotidine (Pepcid) 20 mg IVPUSH Q12H [facility] Last Admin: 08/12/16 20:17 Dose: 20 mg Isosorbide Mononitrate (Imdur) 60 mg PO BEDTIME [facility] Last Admin: 08/12/16 20:16 Dose: 60 mg Levothyroxine Sodium (Levothyroxine) 75 mcg PO BEDTIME [facility] Last Admin: 08/12/16 20:16 Dose: 75 mcg Lorazepam (Ativan) 0.5 mg PO BEDTIME PRN PRN Reason: restlessness Last Admin: 08/12/16 20:15 Dose: 0.5 mg Losartan Potassium (Cozaar) 25 mg PO QPM [facility] Last Admin: 08/12/16 18:07 Dose: 25 mg Magnesium Hydroxide (Milk Of Magnesia) 30 ml PO DAILY PRN PRN Reason: Constipation Last Admin: 08/12/16 12:54 Dose: 30 ml Methyl Salicylate (Icy Hot Cream) 1 gm TOP ASDIRECTED PRN PRN Reason: Pain Last Admin: 08/11/16 04:53 Dose: 1 applic Methylprednisolone Sodium Succinate (Solu-Medrol) 40 mg IVPUSH Q12H [facility] Last Admin: 08/12/16 20:12 Dose: 40 mg Metoprolol Tartrate (Lopressor) 12.5 mg PO Q12HR [facility] Last Admin: 08/12/16 20:16 Dose: 12.5 mg Ondansetron HCl (Zofran) 4 mg IVPUSH Q6H PRN PRN Reason: Nausea/Vomiting Last Admin: 08/11/16 05:29 Dose: 4 mg Sodium Chloride (Saline Flush) 10 ml FLUSH ASDIRECTED PRN PRN Reason: Keep Vein Open Last Admin: 08/12/16 20:15 Dose: 10 ml Sodium Chloride (Saline Flush) 10 ml FLUSH Q12HR [facility] Last Admin: 08/12/16 20:12 Dose: 10 ml Tramadol HCl (Ultram) 50 mg PO Q6H PRN PRN Reason: Breakthrough Pain Last Admin: 08/11/16 04:53 Dose: 50 mg Warfarin Sodium (Coumadin) 3 mg PO DAILY@1800 [facility] Last Admin: 08/12/16 18:06 Dose: 3 mg Discontinued Medications Enoxaparin Sodium (Lovenox) 70 mg SUBCUT Q24H [facility] Last Admin: 08/11/16 09:17 Dose: 70 mg Famotidine (Pepcid) 40 mg IVPUSH ONETIME ONE Stop: 08/08/16 09:08 Last Admin: 08/08/16 09:33 Dose: 40 mg Ferrous Sulfate (Ferrous Sulfate) 325 mg PO BIDMEALS [facility] Last Admin: 08/11/16 17:01 Dose: 325 mg Furosemide (Lasix) 60 mg IVPUSH NOW ONE Stop: 08/08/16 09:22 Last Admin: 08/08/16 09:37 Dose: 60 mg Furosemide (Lasix) 40 mg IVPUSH Q8H [facility] Last Admin: 08/09/16 02:01 Dose: 40 mg Furosemide (Lasix) 40 mg IVPUSH DAILY [facility] Last Admin: 08/11/16 07:08 Dose: 40 mg Iopamidol (Isovue-370 (76%)) 100 ml IVPUSH ONETIME ONE Stop: 08/08/16 10:16 Last Admin: 08/08/16 10:33 Dose: 100 ml Iopamidol (Isovue-300 (61%)) 100 ml IVPUSH ONETIME ONE Stop: 08/12/16 08:51 Last Admin: 08/12/16 11:27 Dose: Not Given Iopamidol (Isovue-370 (76%)) 100 ml IVPUSH ONETIME ONE Stop: 08/12/16 08:59 Last Admin: 08/12/16 11:18 Dose: 100 ml Isosorbide Mononitrate (Imdur) 30 mg PO BEDTIME [facility] Last Admin: 08/11/16 19:54 Dose: 30 mg Methylprednisolone Sodium Succinate (Solu-Medrol) 40 mg IVPUSH Q12H [facility] Last Admin: 08/11/16 22:01 Dose: 40 mg Metoprolol Tartrate (Lopressor) 2.5 mg IVPUSH ONETIME ONE Stop: 08/08/16 09:11 Last Admin: 08/08/16 09:33 Dose: 2.5 mg Morphine Sulfate (Morphine) 2 mg IVPUSH ONETIME ONE Stop: 08/09/16 11:31 Last Admin: 08/08/16 11:37 Dose: 2 mg Nitroglycerin (Nitrostat) 0.4 mg SL ONETIME STA Stop: 08/09/16 09:36 Last Admin: 08/08/16 09:40 Dose: 0.4 mg Nitroglycerin (Nitrostat) 0.4 mg SL ONETIME STA Stop: 08/09/16 10:51 Last Admin: 08/08/16 10:51 Dose: 0.4 mg Non-Formulary Medication (Ketotifen Fumarate [Zaditor]) 1 drop EYEBOTH BEDTIME [facility] Last Admin: 08/10/16 20:02 Dose: Not Given Ondansetron HCl (Zofran) 4 mg IVPUSH ONETIME ONE Stop: 08/08/16 11:31 Last Admin: 08/08/16 11:35 Dose: 4 mg Potassium Chloride (Klor-Con M20) 20 meq PO TID [facility] Last Admin: 08/08/16 17:19 Dose: 20 meq Potassium Chloride (Klor-Con M20) 20 meq PO BID [facility] Last Admin: 08/09/16 17:12 Dose: 20 meq Sodium Chloride (Saline Flush) 10 ml FLUSH Q12H PRN PRN Reason: Keep Vein Open Last Admin: 08/11/16 19:53 Dose: 10 ml Warfarin Sodium (Coumadin) 2.5 mg PO ONETIME ONE Stop: 08/08/16 13:04 Last Admin: 08/08/16 13:22 Dose: 2.5 mg - Exam Quality Assessment: DVT prophylaxis (coumadin, lovenox) General: alert, cooperative, no acute distress HEENT: Mucous membr. moist/pink Neck: trachea midline, no JVD Lungs: Clear to auscultation, Normal respiratory effort Cardiovascular: Irregular Rhythm Abdomen: bowel sounds present, soft, no tenderness, no distension (Female) Exam: Deferred Back Exam: normal inspection Extremities: no edema Skin: warm, dry, intact Neurological: no new focal deficit Psy/Mental Status: alert, normal affect, normal mood - Problem List & Annotations (1) Hyponatremia SNOMED Code(s): 76635364 Code(s): E87.1 - HYPO-OSMOLALITY AND HYPONATREMIA Status: Acute Priority : High (2) Subluxation complex of thoracic region SNOMED Code(s): 546260165 Code(s): M99.12 - SUBLUXATION COMPLEX (VERTEBRAL) OF THORACIC REGION Status : Acute (3) COPD, Mild chronic obstructive pulmonary disease SNOMED Code(s): 588440083 Code(s): J44.9 - CHRONIC OBSTRUCTIVE PULMONARY DISEASE, UNSPECIFIED Status : Acute Priority: Medium Annotation/Comment:: By chest x-ray not requiring medical therapy. No current bronchitic symptoms (4) Chest pain SNOMED Code(s): 00541308 Code(s): R07.9 - CHEST PAIN, UNSPECIFIED Status: Acute Priority: High Onset Date: 08/08/16 Qualifiers: Qualified Code(s): R07.89 - Other chest pain; R07.8 - Other chest pain Annotation/Comment:: Chest pain protocol initiated in the emergency room, although ASA and Plavix were not initially given secondary to her current Coumadin therapy, although INR subtherapeutic today. Subcutaneous Lovenox initiated once INR results were obtained. Stat CTA of the chest was also ordered with results as above. IV Lopressor and sublingual nitroglycerin also given for better blood pressure control and as cardiac prophylaxis. Initiate standard rule out [place] orders with cardiology consultation depending on her clinical course. Patient was previously comfort care, however after discussing her wishes she does agree to full code with only brief CPR/code and short-term intubation only. Nonspecific nausea and headache during the end of her emergency room care, which did require IV Zofran and IV morphine therapy. Chest pain significantly improved at time of admission (5) D-dimer, elevated SNOMED Code(s): 067413587 Code(s): R79.89 - OTHER SPECIFIED ABNORMAL FINDINGS OF BLOOD CHEMISTRY Status: Acute Priority: High Onset Date: 08/08/16 Annotation/Comment:: Subcutaneous Lovenox initiated in the emergency room. INR apparently 1.7 prior to initiation of her hydrocodone, which will be discontinued at this time. Continue subcutaneous Lovenox therapy for now with mild Coumadin loading on admission. INR in the a.m.. Discontinue Lovenox when INR is therapeutic. CTA of the chest is negative as above. Consider venous Doppler studies of the lower extremities depending on her clinical course. (6) HTN (hypertension) SNOMED Code(s): 90371183 Code(s): I10 - ESSENTIAL (PRIMARY) HYPERTENSION Status: Acute Priority: High Qualifiers: Qualified Code(s): I10 - Essential (primary) hypertension Annotation/Comment:: Continue on current medications (7) Mid back pain on right side SNOMED Code(s): 936200202 Code(s): M54.9 - DORSALGIA, UNSPECIFIED Status: Acute Annotation/Comment: : Will start kpad and muscle rub, pain with palpation. Patient states pain resolved with massage and heat. Ordered T spine Xray to rule out compression fracture (8) Anemia SNOMED Code(s): 775324612 Code(s): D64.9 - ANEMIA, UNSPECIFIED Status: Chronic Priority: Medium Annotation/Comment:: Continue on the iron, iron does not seem to be contributing to patient's nausea. (9) Hypothyroidism SNOMED Code(s): 50036663 Code(s): E03.9 - HYPOTHYROIDISM, UNSPECIFIED Status: Chronic Priority: Medium Annotation/Comment:: Continue on current dose of synthroid, level was slightly elevated and dose already adjusted (10) Iron deficiency anemia SNOMED Code(s): 62173872 Code(s): D50.9 - IRON DEFICIENCY ANEMIA, UNSPECIFIED Status: Chronic Qualifiers: Qualified Code(s): D50.8 - Other iron deficiency anemias Annotation/Comment:: As above (11) Osteoarthritis SNOMED Code(s): 927446393 Code(s): M19.90 - UNSPECIFIED OSTEOARTHRITIS, UNSPECIFIED SITE Status: Chronic Priority: Medium Annotation/Comment:: Recently under moderate control by patient history with additional history of rheumatoid arthritis, gout , and fibromyalgia. Discontinue narcotic medication. Further medication adjustments by her regular providers depending on her clinical course (12) Peptic reflux disease SNOMED Code(s): 97913836 Code(s): K21.9 - GASTRO-ESOPHAGEAL REFLUX DISEASE WITHOUT ESOPHAGITIS Status: Chronic Priority: Medium Annotation/Comment:: Currently nonsymptomatic with IV Pepcid given in the emergency room as GI prophylaxis (13) Renal insufficiency SNOMED Code(s): 132787018 Code(s): N28.9 - DISORDER OF KIDNEY AND URETER, UNSPECIFIED Status: Chronic Priority: Medium Annotation/Comment:: Stable by history with normal creatinine today (14) HTN, Benign hypertension SNOMED Code(s): 15284002 Code(s): I10 - ESSENTIAL (PRIMARY) HYPERTENSION Status: Acute Priority: Medium (15) Pulmonary emboli SNOMED Code(s): 24308489, 34273881 Code(s): I26.99 - OTHER PULMONARY EMBOLISM WITHOUT ACUTE COR PULMONALE Status: Acute Priority: High (16) DVT (deep venous thrombosis) SNOMED Code(s): 323515028 Code(s): I82.409 - ACUTE EMBOLISM AND THOMBOS UNSP DEEP VN UNSP LOWER EXTREMITY Status: Chronic Priority: High Onset Date: 07/27/15 Qualifiers: Qualified Code(s): I82.412 - Acute embolism and thrombosis of left femoral vein Annotation/Comment:: History of DVT and PE as above with mildly subtherapeutic INR today. Repeat INR in the a.m. with mild Coumadin adjustment today (17) Mixed anxiety depressive disorder SNOMED Code(s): 717551313 Code(s): F41.8 - OTHER SPECIFIED ANXIETY DISORDERS Status: Chronic Annotation/Comment:: Stable by patient history with continued close observation by her regular provider (18) PVC's (premature ventricular contractions) SNOMED Code(s): 85335336 Code(s): I49.3 - VENTRICULAR PREMATURE DEPOLARIZATION Status: Chronic Priority: Medium Annotation/Comment:: Some moderate frequency of PVCs and brief bigeminy as above with additional mildly progressive first degree AV block. Continue medication adjustment and cardiac monitoring as above - Problem List Review Problem List Initiated/Reviewed/Updated: Yes - My Orders Last 24 Hours: My Active Orders 08/12/16 05:11 Chest 2V [CR] Routine 08/12/16 08:00 Sodium Chloride 0.9% [Saline Flush] 10 ml FLUSH Q12HR methylPREDNISolone Sod Succ [Solu-MEDROL] 40 mg IVPUSH Q12H 08/12/16 11:00 Abdomen Pelvis w wo Cont [CT] Routine 08/12/16 12:39 Magnesium Hydroxide [Milk of Magnesia] 30 ml PO DAILY PRN 08/12/16 20:00 Isosorbide Mononitrate [Imdur] 60 mg PO BEDTIME 08/12/16 21:07 Discontinue Telemetry Monitoring [Cardiac Monitoring Discontinue] [RC] Click To Edit 08/13/16 05:11 CBC WITH AUTO DIFF [HEME] Routine CMP [COMPREHENSIVE METABOLIC PN,CMP] [CHEM] Routine OSMOLALITY - SERUM [REF] Routine OSMOLALITY - URINE Routine - Plan Plan:: 08/09/2016 Patient feels good this morning. Had some right sided paraspinal Tspine pain through the night which was resolved with muscle rub and massage. Patient has no recent injury to her back or shoulder. Patient has known chronic pain due to arthritis and fibromyalgia. States her hands and feet started to swell over the last few days, better this morning. Labs reviewed. Cr slightly elevated, will decrease IV Lasix and potassium. Coumadin dosed per INR, continue on the sub Q Lovenox until INR therapeutic. Recheck labs in the am. Patient had nausea which was correlated with pain, denies any nausea this morning. Will try heat to back area. Consider T spine Xrays if the pain doesnt improve with heat. Continue with oral tramadol, patient states it is helping with her pain. Will discuss with Dr Blackman. Yarelis Amezcua CNP 08/10/2016 Labs reviewed, potassium discontinued and will recheck labs in the am. Patient continues with mid back pain and right paraspinal muscle pain with some nausea. States pain started after getting up in the morning and moving a pillow on her bed. Ordered T spine Xrays and ultrasound to check for gall stones. Patient having some nausea and RUQ pain into the shoulder blade area. Continue with heat , muscle rub and oral pain pills for pain management, keeps patient's pain 2 to 3 out of 10. Continue on Lovenox until INR 2.0. Discussed with the patient, she verbalized understanding. Order PT/OT consult. Yarelis Amezcua CNP 08/11/16 Yehuda Quintana MD PT helping pain. U/S possible mass liver. Recommend CT scan. She is allergic to iodine. INR 1.9. 08/12/16 Yehuda Quintana MD No pain now. Feeling much better. CT report pending. Hyponatremia persists and Na+ level not stabilized therefore she needs continued inpatient status for monitoring sodium status, cardiovascular status, mental status. Hyponatremia work up in progress.
[2016-08-13] MEDS: Metoprolol Tartrate 25 MG Tab PO SCH (07:41)
[2016-08-13] MEDS: Sodium Chloride 0.9% 10 ML Syringe FLUSH SCH (07:41)
[2016-08-13] MEDS: amLODIPine 5 MG Tab PO SCH (07:41)
[2016-08-13] MEDS: methylPREDNISolone Sodium Succinate 40 MG/1 ML SDV IVPUSH SCH (07:41)
[2016-08-13] MEDS: Famotidine 20 MG/2 ML SDV IVPUSH SCH (07:41)
[2016-08-13 13:53] VITALS: BP 140/64
--- NOTE | 2016-08-13 17:14 | PCM.PN ---
- General Info Date of Service: 08/13/16 Admission Dx/Problem (Free Text): CHF Right mid back strain HTN Functional Status: Reports: pain controlled - Review of Systems General: Reports: No Symptoms HEENT: Reports: no symptoms Pulmonary: Reports: no symptoms Cardiovascular: Reports: No Symptoms Gastrointestinal: Reports: No symptoms Genitourinary: Reports: no symptoms Musculoskeletal: Reports: no symptoms Skin: Reports: no symptoms Neurological: Reports: No Symptoms Psychiatric: Reports: no symptoms - Patient Data Vitals - most recent: Last Vital Signs Temp 98.1 F 08/13/16 12:00 Pulse 70 08/13/16 08:00 Resp 18 08/13/16 12:00 BP 140/64 08/13/16 12:00 Pulse Ox 97 08/13/16 12:00 Weight - most recent: 170 lb 12.8 oz I&O - last 24 hours: Intake & Output 08/13/16 08/13/16 08/13/16 06:59 14:59 22:59 Intake Total 150 1200 Output Total 325 500 Balance -175 700 Lab Results last 24 hrs: Laboratory Results - last 24 hr 08/13/16 08/13/16 Range/Units 06:33 06:33 WBC 5.3 (4.0-10.2) K/uL RBC 3.60 L (3.77-5.09) M/uL Hgb 9.7 L (11.7-15.5) g/dL Hct 29.6 L (34.0-46.0) % MCV 82.2 L (84.0-98.0) fL MCH 26.9 L (28.2-33.3) pg MCHC 32.8 (31.7-36.0) g/dL RDW 14.9 H (11.2-14.1) % Plt Count 287 (150-350) K/uL Neut % (Auto) 80.1 H (45.0-80.0) % Lymph % (Auto) 13.3 (10.0-50.0) % [place] % (Auto) 6.4 (2.0-14.0) % Eos % (Auto) 0.0 (0.0-5.0) % Baso % (Auto) 0.2 (0.0-2.0) % Neut # 4.27 (1.40-7.00) K/uL Lymph # 0.71 (0.50-3.50) K/uL [place] # 0.34 (0.00-1.00) K/uL Eos # 0.00 (0.00-0.50) K/uL Baso # 0.01 (0.00-0.20) K/uL Sodium 128 L (136-145) mmol/L Potassium 4.8 (3.5-5.1) mmol/L Chloride 93 L (98-107) mmol/L Carbon Dioxide 27.8 (21.0-32.0) mmol/L BUN 27 H (7-18) mg/dL Creatinine 0.96 (0.51-1.17) mg/dL Est Cr Clr Drug Dosing 35.91 mL/min Estimated GFR (MDRD) 55 mL/min Glucose 138 H (74-106) mg/dL Calcium 8.7 (8.5-10.1) mg/dL Total Bilirubin 0.3 (0.2-1.0) mg/dL AST 46 H (15-37) U/L ALT 42 (12-78) U/L Alkaline Phosphatase 70 (46-116) IU/L Total Protein 6.6 (6.4-8.2) g/dL Albumin 3.2 L (3.4-5.0) g/dL TSH, Ultra Sensitive 0.566 (0.358-3.740) mIU/mL Chet Results last 24 hrs: Microbiology 08/12/16 15:30 Stool Occult Blood (CHET) - Final Stool / Feces NEGATIVE OCCULT BLOOD Med Orders - Current: Current Medications Acetaminophen (Tylenol) 650 mg PO Q4HR PRN PRN Reason: Pain/Fever Last Admin: 08/12/16 20:15 Dose: 650 mg Amlodipine Besylate (Norvasc) 2.5 mg PO Q12HR NIKITA Last Admin: 08/13/16 07:41 Dose: 2.5 mg Docusate Sodium (Colace) 100 mg PO BID PRN PRN Reason: Constipation Last Admin: 08/11/16 12:40 Dose: 100 mg Famotidine (Pepcid) 20 mg IVPUSH Q12H NIKITA Last Admin: 08/13/16 07:41 Dose: 20 mg Isosorbide Mononitrate (Imdur) 60 mg PO BEDTIME NIKITA Last Admin: 08/12/16 20:16 Dose: 60 mg Levothyroxine Sodium (Levothyroxine) 75 mcg PO BEDTIME [facility] Last Admin: 08/12/16 20:16 Dose: 75 mcg Lorazepam (Ativan) 0.5 mg PO BEDTIME PRN PRN Reason: restlessness Last Admin: 08/12/16 20:15 Dose: 0.5 mg Losartan Potassium (Cozaar) 25 mg PO QPM [facility] Last Admin: 08/12/16 18:07 Dose: 25 mg Magnesium Hydroxide (Milk Of Magnesia) 30 ml PO DAILY PRN PRN Reason: Constipation Last Admin: 08/12/16 12:54 Dose: 30 ml Methyl Salicylate (Icy Hot Cream) 1 gm TOP ASDIRECTED PRN PRN Reason: Pain Last Admin: 08/11/16 04:53 Dose: 1 applic Methylprednisolone Sodium Succinate (Solu-Medrol) 40 mg IVPUSH Q12H [facility] Last Admin: 08/13/16 07:41 Dose: 40 mg Metoprolol Tartrate (Lopressor) 12.5 mg PO Q12HR [facility] Last Admin: 08/13/16 07:41 Dose: 12.5 mg Ondansetron HCl (Zofran) 4 mg IVPUSH Q6H PRN PRN Reason: Nausea/Vomiting Last Admin: 08/11/16 05:29 Dose: 4 mg Sodium Chloride (Saline Flush) 10 ml FLUSH ASDIRECTED PRN PRN Reason: Keep Vein Open Last Admin: 08/12/16 20:15 Dose: 10 ml Sodium Chloride (Saline Flush) 10 ml FLUSH Q12HR [facility] Last Admin: 08/13/16 07:41 Dose: 10 ml Tramadol HCl (Ultram) 50 mg PO Q6H PRN PRN Reason: Breakthrough Pain Last Admin: 08/11/16 04:53 Dose: 50 mg Warfarin Sodium (Coumadin) 3 mg PO DAILY@1800 [facility] Last Admin: 08/12/16 18:06 Dose: 3 mg Discontinued Medications Enoxaparin Sodium (Lovenox) 70 mg SUBCUT Q24H [facility] Last Admin: 08/11/16 09:17 Dose: 70 mg Famotidine (Pepcid) 40 mg IVPUSH ONETIME ONE Stop: 08/08/16 09:08 Last Admin: 08/08/16 09:33 Dose: 40 mg Ferrous Sulfate (Ferrous Sulfate) 325 mg PO BIDMEALS [facility] Last Admin: 08/11/16 17:01 Dose: 325 mg Furosemide (Lasix) 60 mg IVPUSH NOW ONE Stop: 08/08/16 09:22 Last Admin: 08/08/16 09:37 Dose: 60 mg Furosemide (Lasix) 40 mg IVPUSH Q8H [facility] Last Admin: 08/09/16 02:01 Dose: 40 mg Furosemide (Lasix) 40 mg IVPUSH DAILY [facility] Last Admin: 08/11/16 07:08 Dose: 40 mg Iopamidol (Isovue-370 (76%)) 100 ml IVPUSH ONETIME ONE Stop: 08/08/16 10:16 Last Admin: 08/08/16 10:33 Dose: 100 ml Iopamidol (Isovue-300 (61%)) 100 ml IVPUSH ONETIME ONE Stop: 08/12/16 08:51 Last Admin: 08/12/16 11:27 Dose: Not Given Iopamidol (Isovue-370 (76%)) 100 ml IVPUSH ONETIME ONE Stop: 08/12/16 08:59 Last Admin: 08/12/16 11:18 Dose: 100 ml Isosorbide Mononitrate (Imdur) 30 mg PO BEDTIME [facility] Last Admin: 08/11/16 19:54 Dose: 30 mg Methylprednisolone Sodium Succinate (Solu-Medrol) 40 mg IVPUSH Q12H [facility] Last Admin: 08/11/16 22:01 Dose: 40 mg Metoprolol Tartrate (Lopressor) 2.5 mg IVPUSH ONETIME ONE Stop: 08/08/16 09:11 Last Admin: 08/08/16 09:33 Dose: 2.5 mg Morphine Sulfate (Morphine) 2 mg IVPUSH ONETIME ONE Stop: 08/09/16 11:31 Last Admin: 08/08/16 11:37 Dose: 2 mg Nitroglycerin (Nitrostat) 0.4 mg SL ONETIME STA Stop: 08/09/16 09:36 Last Admin: 08/08/16 09:40 Dose: 0.4 mg Nitroglycerin (Nitrostat) 0.4 mg SL ONETIME STA Stop: 08/09/16 10:51 Last Admin: 08/08/16 10:51 Dose: 0.4 mg Non-Formulary Medication (Ketotifen Fumarate [Zaditor]) 1 drop EYEBOTH BEDTIME [facility] Last Admin: 08/10/16 20:02 Dose: Not Given Ondansetron HCl (Zofran) 4 mg IVPUSH ONETIME ONE Stop: 08/08/16 11:31 Last Admin: 08/08/16 11:35 Dose: 4 mg Potassium Chloride (Klor-Con M20) 20 meq PO TID [facility] Last Admin: 08/08/16 17:19 Dose: 20 meq Potassium Chloride (Klor-Con M20) 20 meq PO BID [facility] Last Admin: 08/09/16 17:12 Dose: 20 meq Sodium Chloride (Saline Flush) 10 ml FLUSH Q12H PRN PRN Reason: Keep Vein Open Last Admin: 08/11/16 19:53 Dose: 10 ml Warfarin Sodium (Coumadin) 2.5 mg PO ONETIME ONE Stop: 08/08/16 13:04 Last Admin: 08/08/16 13:22 Dose: 2.5 mg - Exam General: alert, oriented, no acute distress HEENT: Pupils equal, Pupils reactive, EOMI, Mucous membr. moist/pink Neck: supple Lungs: Clear to auscultation, Normal respiratory effort Cardiovascular: Regular Rate, Regular Rhythm Abdomen: bowel sounds present, soft, no tenderness, no distension (Female) Exam: Deferred Back Exam: normal inspection Extremities: no edema Skin: warm, dry, intact Neurological: no new focal deficit Psy/Mental Status: alert, normal affect, normal mood - Problem List & Annotations (1) Hyponatremia SNOMED Code(s): 03152381 Code(s): E87.1 - HYPO-OSMOLALITY AND HYPONATREMIA Status: Acute Priority : High Current Visit: Yes (2) Subluxation complex of thoracic region SNOMED Code(s): 808965031 Code(s): M99.12 - SUBLUXATION COMPLEX (VERTEBRAL) OF THORACIC REGION Status : Acute Current Visit: Yes (3) COPD, Mild chronic obstructive pulmonary disease SNOMED Code(s): 514302964 Code(s): J44.9 - CHRONIC OBSTRUCTIVE PULMONARY DISEASE, UNSPECIFIED Status : Acute Priority: Medium Current Visit: Yes Annotation/Comment:: By chest x-ray not requiring medical therapy. No current bronchitic symptoms (4) Chest pain SNOMED Code(s): 28184590 Code(s): R07.9 - CHEST PAIN, UNSPECIFIED Status: Acute Priority: High Current Visit: Yes Onset Date: 08/08/16 Qualifiers: Qualified Code(s): R07.89 - Other chest pain; R07.8 - Other chest pain Annotation/Comment:: Chest pain protocol initiated in the emergency room, although ASA and Plavix were not initially given secondary to her current Coumadin therapy, although INR subtherapeutic today. Subcutaneous Lovenox initiated once INR results were obtained. Stat CTA of the chest was also ordered with results as above. IV Lopressor and sublingual nitroglycerin also given for better blood pressure control and as cardiac prophylaxis. Initiate standard rule out SC orders with cardiology consultation depending on her clinical course. Patient was previously comfort care, however after discussing her wishes she does agree to full code with only brief CPR/code and short-term intubation only. Nonspecific nausea and headache during the end of her emergency room care, which did require IV Zofran and IV morphine therapy. Chest pain significantly improved at time of admission (5) D-dimer, elevated SNOMED Code(s): 782891871 Code(s): R79.89 - OTHER SPECIFIED ABNORMAL FINDINGS OF BLOOD CHEMISTRY Status: Acute Priority: High Current Visit: Yes Onset Date: 08/08/16 Annotation/Comment:: Subcutaneous Lovenox initiated in the emergency room. INR apparently 1.7 prior to initiation of her hydrocodone, which will be discontinued at this time. Continue subcutaneous Lovenox therapy for now with mild Coumadin loading on admission. INR in the a.m.. Discontinue Lovenox when INR is therapeutic. CTA of the chest is negative as above. Consider venous Doppler studies of the lower extremities depending on her clinical course. (6) HTN (hypertension) SNOMED Code(s): 24794736 Code(s): I10 - ESSENTIAL (PRIMARY) HYPERTENSION Status: Acute Priority: High Current Visit: Yes Qualifiers: Qualified Code(s): I10 - Essential (primary) hypertension Annotation/Comment:: Continue on current medications (7) Mid back pain on right side SNOMED Code(s): 756188829 Code(s): M54.9 - DORSALGIA, UNSPECIFIED Status: Acute Current Visit: Yes Annotation/Comment:: Will start kpad and muscle rub, pain with palpation. Patient states pain resolved with massage and heat. Ordered T spine Xray to rule out compression fracture (8) Anemia SNOMED Code(s): 301636755 Code(s): D64.9 - ANEMIA, UNSPECIFIED Status: Chronic Priority: Medium Current Visit: Yes Annotation/Comment:: Continue on the iron, iron does not seem to be contributing to patient's nausea. (9) Hypothyroidism SNOMED Code(s): 13142597 Code(s): E03.9 - HYPOTHYROIDISM, UNSPECIFIED Status: Chronic Priority: Medium Current Visit: Yes Annotation/Comment:: Continue on current dose of synthroid, level was slightly elevated and dose already adjusted (10) Iron deficiency anemia SNOMED Code(s): 64065808 Code(s): D50.9 - IRON DEFICIENCY ANEMIA, UNSPECIFIED Status: Chronic Current Visit: Yes Qualifiers: Qualified Code(s): D50.8 - Other iron deficiency anemias Annotation/Comment:: As above (11) Osteoarthritis SNOMED Code(s): 859889833 Code(s): M19.90 - UNSPECIFIED OSTEOARTHRITIS, UNSPECIFIED SITE Status: Chronic Priority: Medium Current Visit: Yes Annotation/Comment:: Recently under moderate control by patient history with additional history of rheumatoid arthritis, gout, and fibromyalgia. Discontinue narcotic medication. Further medication adjustments by her regular providers depending on her clinical course (12) Peptic reflux disease SNOMED Code(s): 45182116 Code(s): K21.9 - GASTRO-ESOPHAGEAL REFLUX DISEASE WITHOUT ESOPHAGITIS Status: Chronic Priority: Medium Current Visit: Yes Annotation/Comment:: Currently nonsymptomatic with IV Pepcid given in the emergency room as GI prophylaxis (13) Renal insufficiency SNOMED Code(s): 399753649 Code(s): N28.9 - DISORDER OF KIDNEY AND URETER, UNSPECIFIED Status: Chronic Priority: Medium Current Visit: Yes Annotation/Comment:: Stable by history with normal creatinine today (14) HTN, Benign hypertension SNOMED Code(s): 27801982 Code(s): I10 - ESSENTIAL (PRIMARY) HYPERTENSION Status: Acute Priority: Medium Current Visit: No (15) Pulmonary emboli SNOMED Code(s): 95683489, 37005080 Code(s): I26.99 - OTHER PULMONARY EMBOLISM WITHOUT ACUTE COR PULMONALE Status: Acute Priority: High Current Visit: No (16) DVT (deep venous thrombosis) SNOMED Code(s): 647548809 Code(s): I82.409 - ACUTE EMBOLISM AND THOMBOS UNSP DEEP VN UNSP LOWER EXTREMITY Status: Chronic Priority: High Current Visit: No Onset Date: 07/27/15 Qualifiers: Qualified Code(s): I82.412 - Acute embolism and thrombosis of left femoral vein Annotation/Comment:: History of DVT and PE as above with mildly subtherapeutic INR today. Repeat INR in the a.m. with mild Coumadin adjustment today (17) Mixed anxiety depressive disorder SNOMED Code(s): 909922296 Code(s): F41.8 - OTHER SPECIFIED ANXIETY DISORDERS Status: Chronic Current Visit: No Annotation/Comment:: Stable by patient history with continued close observation by her regular provider (18) PVC's (premature ventricular contractions) SNOMED Code(s): 23691694 Code(s): I49.3 - VENTRICULAR PREMATURE DEPOLARIZATION Status: Chronic Priority: Medium Current Visit: No Annotation/Comment:: Some moderate frequency of PVCs and brief bigeminy as above with additional mildly progressive first degree AV block. Continue medication adjustment and cardiac monitoring as above - Problem List Review Problem List Initiated/Reviewed/Updated: Yes - My Orders Last 24 Hours: My Active Orders 08/12/16 20:00 Isosorbide Mononitrate [Imdur] 60 mg PO BEDTIME 08/13/16 06:33 OSMOLALITY - SERUM [REF] Routine 08/13/16 14:50 OSMOLALITY - URINE Routine SODIUM, URINE RAND/24HR Routine 08/13/16 15:48 Ready for Discharge [RC] PER UNIT ROUTINE 08/13/16 15:49 Discontinue Saline Lock [Peripheral IV Discontinue] [OM.PC] Routine 08/13/16 Dinner Regular Diet [DIET] - Plan Plan:: 08/09/2016 Patient feels good this morning. Had some right sided paraspinal Tspine pain through the night which was resolved with muscle rub and massage. Patient has no recent injury to her back or shoulder. Patient has known chronic pain due to arthritis and fibromyalgia. States her hands and feet started to swell over the last few days, better this morning. Labs reviewed. Cr slightly elevated, will decrease IV Lasix and potassium. Coumadin dosed per INR, continue on the sub Q Lovenox until INR therapeutic. Recheck labs in the am. Patient had nausea which was correlated with pain, denies any nausea this morning. Will try heat to back area. Consider T spine Xrays if the pain doesnt improve with heat. Continue with oral tramadol, patient states it is helping with her pain. Will discuss with Dr Blackman. Yarelis Amezcua CNP 08/10/2016 Labs reviewed, potassium discontinued and will recheck labs in the am. Patient continues with mid back pain and right paraspinal muscle pain with some nausea. States pain started after getting up in the morning and moving a pillow on her bed. Ordered T spine Xrays and ultrasound to check for gall stones. Patient having some nausea and RUQ pain into the shoulder blade area. Continue with heat , muscle rub and oral pain pills for pain management, keeps patient's pain 2 to 3 out of 10. Continue on Lovenox until INR 2.0. Discussed with the patient, she verbalized understanding. Order PT/OT consult. Yarelis Amezcua CNP 08/11/16 Yehuda Quintana MD PT helping pain. U/S possible mass liver. Recommend CT scan. She is allergic to iodine. INR 1.9. 08/12/16 Yehuda Quintana MD Note pending. IT difficulty. Hyponatremia needs monitoring and follow up. 08/13/16 Yehuda Quintana MD Feels fine. Will discharge to son's house. F/U at clinic on Thursday for lab work and to see Yarelis.
--- NOTE | 2016-08-13 17:14 | PCM.DCSUM1 ---
Discharge Summary - Discharge Data Discharge Date: 08/13/16 Discharge Disposition: Home, Self-Care 01 Condition: Good - Discharge Diagnosis/Problem(s) (1) Hyponatremia SNOMED Code(s): 42469604 ICD Code: E87.1 - HYPO-OSMOLALITY AND HYPONATREMIA Status: Acute Priority : High Current Visit: Yes (2) Subluxation complex of thoracic region SNOMED Code(s): 771563028 ICD Code: M99.12 - SUBLUXATION COMPLEX (VERTEBRAL) OF THORACIC REGION Status: Acute Current Visit: Yes (3) COPD, Mild chronic obstructive pulmonary disease SNOMED Code(s): 067907967 ICD Code: J44.9 - CHRONIC OBSTRUCTIVE PULMONARY DISEASE, UNSPECIFIED Status : Acute Priority: Medium Current Visit: Yes Problem Details: By chest x- ray not requiring medical therapy. No current bronchitic symptoms (4) Chest pain SNOMED Code(s): 71900276 ICD Code: R07.9 - CHEST PAIN, UNSPECIFIED Status: Acute Priority: High Current Visit: Yes Onset Date: 08/08/16 Problem Details: Chest pain protocol initiated in the emergency room, although ASA and Plavix were not initially given secondary to her current Coumadin therapy, although INR subtherapeutic today. Subcutaneous Lovenox initiated once INR results were obtained. Stat CTA of the chest was also ordered with results as above. IV Lopressor and sublingual nitroglycerin also given for better blood pressure control and as cardiac prophylaxis. Initiate standard rule out NC orders with cardiology consultation depending on her clinical course. Patient was previously comfort care, however after discussing her wishes she does agree to full code with only brief CPR/code and short-term intubation only. Nonspecific nausea and headache during the end of her emergency room care, which did require IV Zofran and IV morphine therapy. Chest pain significantly improved at time of admission Qualifiers: Qualified Code(s): R07.89 - Other chest pain; R07.8 - Other chest pain (5) D-dimer, elevated SNOMED Code(s): 896704495 ICD Code: R79.89 - OTHER SPECIFIED ABNORMAL FINDINGS OF BLOOD CHEMISTRY Status: Acute Priority: High Current Visit: Yes Onset Date: 08/08/16 Problem Details: Subcutaneous Lovenox initiated in the emergency room. INR apparently 1.7 prior to initiation of her hydrocodone, which will be discontinued at this time. Continue subcutaneous Lovenox therapy for now with mild Coumadin loading on admission. INR in the a.m.. Discontinue Lovenox when INR is therapeutic. CTA of the chest is negative as above. Consider venous Doppler studies of the lower extremities depending on her clinical course. (6) HTN (hypertension) SNOMED Code(s): 64591881 ICD Code: I10 - ESSENTIAL (PRIMARY) HYPERTENSION Status: Acute Priority: High Current Visit: Yes Problem Details: Continue on current medications Qualifiers: Qualified Code(s): I10 - Essential (primary) hypertension (7) Mid back pain on right side SNOMED Code(s): 363364789 ICD Code: M54.9 - DORSALGIA, UNSPECIFIED Status: Acute Current Visit: Yes Problem Details: Will start kpad and muscle rub, pain with palpation. Patient states pain resolved with massage and heat. Ordered T spine Xray to rule out compression fracture (8) Anemia SNOMED Code(s): 224166619 ICD Code: D64.9 - ANEMIA, UNSPECIFIED Status: Chronic Priority: Medium Current Visit: Yes Problem Details: Continue on the iron, iron does not seem to be contributing to patient's nausea. (9) Hypothyroidism SNOMED Code(s): 00603666 ICD Code: E03.9 - HYPOTHYROIDISM, UNSPECIFIED Status: Chronic Priority: Medium Current Visit: Yes Problem Details: Continue on current dose of synthroid, level was slightly elevated and dose already adjusted (10) Iron deficiency anemia SNOMED Code(s): 76076345 ICD Code: D50.9 - IRON DEFICIENCY ANEMIA, UNSPECIFIED Status: Chronic Current Visit: Yes Problem Details: As above Qualifiers: Qualified Code(s): D50.8 - Other iron deficiency anemias (11) Osteoarthritis SNOMED Code(s): 436590763 ICD Code: M19.90 - UNSPECIFIED OSTEOARTHRITIS, UNSPECIFIED SITE Status: Chronic Priority: Medium Current Visit: Yes Problem Details: Recently under moderate control by patient history with additional history of rheumatoid arthritis, gout, and fibromyalgia. Discontinue narcotic medication. Further medication adjustments by her regular providers depending on her clinical course (12) Peptic reflux disease SNOMED Code(s): 63221959 ICD Code: K21.9 - GASTRO-ESOPHAGEAL REFLUX DISEASE WITHOUT ESOPHAGITIS Status: Chronic Priority: Medium Current Visit: Yes Problem Details: Currently nonsymptomatic with IV Pepcid given in the emergency room as GI prophylaxis (13) Renal insufficiency SNOMED Code(s): 646989490 ICD Code: N28.9 - DISORDER OF KIDNEY AND URETER, UNSPECIFIED Status: Chronic Priority: Medium Current Visit: Yes Problem Details: Stable by history with normal creatinine today (14) HTN, Benign hypertension SNOMED Code(s): 28377517 ICD Code: I10 - ESSENTIAL (PRIMARY) HYPERTENSION Status: Acute Priority: Medium Current Visit: No (15) Pulmonary emboli SNOMED Code(s): 18948289, 66471494 ICD Code: I26.99 - OTHER PULMONARY EMBOLISM WITHOUT ACUTE COR PULMONALE Status: Acute Priority: High Current Visit: No (16) DVT (deep venous thrombosis) SNOMED Code(s): 823402311 ICD Code: I82.409 - ACUTE EMBOLISM AND THOMBOS UNSP DEEP VN UNSP LOWER EXTREMITY Status: Chronic Priority: High Current Visit: No Onset Date: 07/27/15 Problem Details: History of DVT and PE as above with mildly subtherapeutic INR today. Repeat INR in the a.m. with mild Coumadin adjustment today Qualifiers: Qualified Code(s): I82.412 - Acute embolism and thrombosis of left femoral vein (17) Mixed anxiety depressive disorder SNOMED Code(s): 387708907 ICD Code: F41.8 - OTHER SPECIFIED ANXIETY DISORDERS Status: Chronic Current Visit: No Problem Details: Stable by patient history with continued close observation by her regular provider (18) PVC's (premature ventricular contractions) SNOMED Code(s): 41115349 ICD Code: I49.3 - VENTRICULAR PREMATURE DEPOLARIZATION Status: Chronic Priority: Medium Current Visit: No Problem Details: Some moderate frequency of PVCs and brief bigeminy as above with additional mildly progressive first degree AV block. Continue medication adjustment and cardiac monitoring as above - Patient Summary/Data Operative Procedure(s) Performed: Left Carpal Tunnel Release Consults: Consultations 08/10/16 08:59 Consult to Occupational Therapy [OT Evaluation and Treatment] [CONS] Routine PT Evaluation and Treatment [CONS] Routine - Patient Instructions Diet: Regular Diet as Tolerated Activity: As Tolerated Driving: Do Not Drive Other/Special Instructions: Appointment at [facility] on 08/15 at 10:40 to see Yarelis and have blood work. - Discharge Plan Prescriptions/Med Rec: Isosorbide Mononitrate [Imdur] 60 mg PO BEDTIME #30 tab.er Home Medications: Home Meds Acetaminophen 650 mg PO Q4HR PRN 07/15/16 [History] Docusate Sodium [Colace] 1 cap PO BID PRN 07/15/16 [History] Ketotifen Fumarate [Zaditor] 1 drop EYEBOTH BEDTIME 07/15/16 [History] LORazepam [Ativan] 0.5 mg PO BEDTIME PRN 07/15/16 [History] Levothyroxine Sodium [Unithroid] 50 mcg PO DAILY 07/15/16 [History] Losartan Potassium 1 tab PO DAILY 07/15/16 [History] Lutein/Minerals/Vit A,C & E [Ocuvite] 1 tab PO BID 07/15/16 [History] Methyl Salicylate/Menthol [Muscle Rub] 1 applic TOP ASDIRECTED PRN 07/15/16 [ History] Multivitamin [Daily Rajat] 1 tab PO DAILY 07/15/16 [History] Nitroglycerin [Nitrostat] 0.4 mg SL Q5M PRN 07/15/16 [History] Warfarin [Coumadin] 1 tab PO MOTUTHFRSA@1800 07/15/16 [History] Warfarin [Coumadin] 2 mg PO SUWE@1800 07/15/16 [History] amLODIPine Besylate [Amlodipine Besylate] 2.5 mg PO Q12HR 07/15/16 [History] Furosemide [Lasix] 20 mg PO DAILY #30 tablet 07/18/16 [Rx] Metoprolol Tartrate [Lopressor] 12.5 mg PO Q12HR #15 tablet 07/18/16 [Rx] Hydrocodone/Acetaminophen [Hydrocodone-Acetaminophen 5-325] 0.5 tab PO Q4HR PRN 08/08/16 [History] Isosorbide Mononitrate [Imdur] 60 mg PO BEDTIME #30 tab.er 08/13/16 [Rx] Patient Handouts: Furosemide injection, Enoxaparin injection, Heart Failure, Chest Pain Observation Forms: ED Department Discharge Referrals: Yarelis Amezcua NP [Primary Care Provider] - - Discharge Summary/Plan Comment DC Time >30 min.: No - Patient Data Vitals - Most Recent: Last Vital Signs Temp 98.1 F 08/13/16 12:00 Pulse 70 08/13/16 08:00 Resp 18 08/13/16 12:00 BP 140/64 08/13/16 12:00 Pulse Ox 97 08/13/16 12:00 Weight - Most Recent: 170 lb 12.8 oz I&O - Last 24 hours: Intake & Output 08/13/16 08/13/16 08/13/16 06:59 14:59 22:59 Intake Total 150 1200 Output Total 325 500 Balance -175 700 Lab Results - Last 24 hrs: Laboratory Results - last 24 hr 08/13/16 08/13/16 Range/Units 06:33 06:33 WBC 5.3 (4.0-10.2) K/uL RBC 3.60 L (3.77-5.09) M/uL Hgb 9.7 L (11.7-15.5) g/dL Hct 29.6 L (34.0-46.0) % MCV 82.2 L (84.0-98.0) fL MCH 26.9 L (28.2-33.3) pg MCHC 32.8 (31.7-36.0) g/dL RDW 14.9 H (11.2-14.1) % Plt Count 287 (150-350) K/uL Neut % (Auto) 80.1 H (45.0-80.0) % Lymph % (Auto) 13.3 (10.0-50.0) % Collier % (Auto) 6.4 (2.0-14.0) % Eos % (Auto) 0.0 (0.0-5.0) % Baso % (Auto) 0.2 (0.0-2.0) % Neut # 4.27 (1.40-7.00) K/uL Lymph # 0.71 (0.50-3.50) K/uL Collier # 0.34 (0.00-1.00) K/uL Eos # 0.00 (0.00-0.50) K/uL Baso # 0.01 (0.00-0.20) K/uL Sodium 128 L (136-145) mmol/L Potassium 4.8 (3.5-5.1) mmol/L Chloride 93 L (98-107) mmol/L Carbon Dioxide 27.8 (21.0-32.0) mmol/L BUN 27 H (7-18) mg/dL Creatinine 0.96 (0.51-1.17) mg/dL Est Cr Clr Drug Dosing 35.91 mL/min Estimated GFR (MDRD) 55 mL/min Glucose 138 H (74-106) mg/dL Calcium 8.7 (8.5-10.1) mg/dL Total Bilirubin 0.3 (0.2-1.0) mg/dL AST 46 H (15-37) U/L ALT 42 (12-78) U/L Alkaline Phosphatase 70 (46-116) IU/L Total Protein 6.6 (6.4-8.2) g/dL Albumin 3.2 L (3.4-5.0) g/dL TSH, Ultra Sensitive 0.566 (0.358-3.740) mIU/mL JUN Results - Last 24 hrs: Microbiology 08/12/16 15:30 Stool Occult Blood (JUN) - Final Stool / Feces NEGATIVE OCCULT BLOOD Med Orders - Current: Current Medications Acetaminophen (Tylenol) 650 mg PO Q4HR PRN PRN Reason: Pain/Fever Last Admin: 08/12/16 20:15 Dose: 650 mg Amlodipine Besylate (Norvasc) 2.5 mg PO Q12HR [facility] Last Admin: 08/13/16 07:41 Dose: 2.5 mg Docusate Sodium (Colace) 100 mg PO BID PRN PRN Reason: Constipation Last Admin: 08/11/16 12:40 Dose: 100 mg Famotidine (Pepcid) 20 mg IVPUSH Q12H [facility]IK[facility] Last Admin: 08/13/16 07:41 Dose: 20 mg Isosorbide Mononitrate (Imdur) 60 mg PO BEDTIME NIKITA Last Admin: 08/12/16 20:16 Dose: 60 mg Levothyroxine Sodium (Levothyroxine) 75 mcg PO BEDTIME NIKITA Last Admin: 08/12/16 20:16 Dose: 75 mcg Lorazepam (Ativan) 0.5 mg PO BEDTIME PRN PRN Reason: restlessness Last Admin: 08/12/16 20:15 Dose: 0.5 mg Losartan Potassium (Cozaar) 25 mg PO QPM [facility] Last Admin: 08/12/16 18:07 Dose: 25 mg Magnesium Hydroxide (Milk Of Magnesia) 30 ml PO DAILY PRN PRN Reason: Constipation Last Admin: 08/12/16 12:54 Dose: 30 ml Methyl Salicylate (Icy Hot Cream) 1 gm TOP ASDIRECTED PRN PRN Reason: Pain Last Admin: 08/11/16 04:53 Dose: 1 applic Methylprednisolone Sodium Succinate (Solu-Medrol) 40 mg IVPUSH Q12H [facility] Last Admin: 08/13/16 07:41 Dose: 40 mg Metoprolol Tartrate (Lopressor) 12.5 mg PO Q12HR [facility] Last Admin: 08/13/16 07:41 Dose: 12.5 mg Ondansetron HCl (Zofran) 4 mg IVPUSH Q6H PRN PRN Reason: Nausea/Vomiting Last Admin: 08/11/16 05:29 Dose: 4 mg Sodium Chloride (Saline Flush) 10 ml FLUSH ASDIRECTED PRN PRN Reason: Keep Vein Open Last Admin: 08/12/16 20:15 Dose: 10 ml Sodium Chloride (Saline Flush) 10 ml FLUSH Q12HR [facility] Last Admin: 08/13/16 07:41 Dose: 10 ml Tramadol HCl (Ultram) 50 mg PO Q6H PRN PRN Reason: Breakthrough Pain Last Admin: 08/11/16 04:53 Dose: 50 mg Warfarin Sodium (Coumadin) 3 mg PO DAILY@1800 [facility] Last Admin: 08/12/16 18:06 Dose: 3 mg Discontinued Medications Enoxaparin Sodium (Lovenox) 70 mg SUBCUT Q24H [facility] Last Admin: 08/11/16 09:17 Dose: 70 mg Famotidine (Pepcid) 40 mg IVPUSH ONETIME ONE Stop: 08/08/16 09:08 Last Admin: 08/08/16 09:33 Dose: 40 mg Ferrous Sulfate (Ferrous Sulfate) 325 mg PO BIDMEALS [facility] Last Admin: 08/11/16 17:01 Dose: 325 mg Furosemide (Lasix) 60 mg IVPUSH NOW ONE Stop: 08/08/16 09:22 Last Admin: 08/08/16 09:37 Dose: 60 mg Furosemide (Lasix) 40 mg IVPUSH Q8H [facility] Last Admin: 08/09/16 02:01 Dose: 40 mg Furosemide (Lasix) 40 mg IVPUSH DAILY [facility] Last Admin: 08/11/16 07:08 Dose: 40 mg Iopamidol (Isovue-370 (76%)) 100 ml IVPUSH ONETIME ONE Stop: 08/08/16 10:16 Last Admin: 08/08/16 10:33 Dose: 100 ml Iopamidol (Isovue-300 (61%)) 100 ml IVPUSH ONETIME ONE Stop: 08/12/16 08:51 Last Admin: 08/12/16 11:27 Dose: Not Given Iopamidol (Isovue-370 (76%)) 100 ml IVPUSH ONETIME ONE Stop: 08/12/16 08:59 Last Admin: 08/12/16 11:18 Dose: 100 ml Isosorbide Mononitrate (Imdur) 30 mg PO BEDTIME [facility] Last Admin: 08/11/16 19:54 Dose: 30 mg Methylprednisolone Sodium Succinate (Solu-Medrol) 40 mg IVPUSH Q12H [facility] Last Admin: 08/11/16 22:01 Dose: 40 mg Metoprolol Tartrate (Lopressor) 2.5 mg IVPUSH ONETIME ONE Stop: 08/08/16 09:11 Last Admin: 08/08/16 09:33 Dose: 2.5 mg Morphine Sulfate (Morphine) 2 mg IVPUSH ONETIME ONE Stop: 08/09/16 11:31 Last Admin: 08/08/16 11:37 Dose: 2 mg Nitroglycerin (Nitrostat) 0.4 mg SL ONETIME STA Stop: 08/09/16 09:36 Last Admin: 08/08/16 09:40 Dose: 0.4 mg Nitroglycerin (Nitrostat) 0.4 mg SL ONETIME STA Stop: 08/09/16 10:51 Last Admin: 08/08/16 10:51 Dose: 0.4 mg Non-Formulary Medication (Ketotifen Fumarate [Zaditor]) 1 drop EYEBOTH BEDTIME [facility] Last Admin: 08/10/16 20:02 Dose: Not Given Ondansetron HCl (Zofran) 4 mg IVPUSH ONETIME ONE Stop: 08/08/16 11:31 Last Admin: 08/08/16 11:35 Dose: 4 mg Potassium Chloride (Klor-Con M20) 20 meq PO TID [facility] Last Admin: 08/08/16 17:19 Dose: 20 meq Potassium Chloride (Klor-Con M20) 20 meq PO BID [facility] Last Admin: 08/09/16 17:12 Dose: 20 meq Sodium Chloride (Saline Flush) 10 ml FLUSH Q12H PRN PRN Reason: Keep Vein Open Last Admin: 08/11/16 19:53 Dose: 10 ml Warfarin Sodium (Coumadin) 2.5 mg PO ONETIME ONE Stop: 08/08/16 13:04 Last Admin: 08/08/16 13:22 Dose: 2.5 mg *Q Meaningful Use (DIS) - VTE *Q VTE Criteria *Q: - Stroke *Q Stroke Criteria *Q: - AMI *Q AMI Criteria *Q:
== END 2016-08-13 16:20 | disposition home or self-care (01) | DRG 292 ==
LOC: LL.ED 08:44 → UNDOADMIN 12:15 → LL.MS 12:15 → UNDODISIN 08-13 16:20
PROVIDERS: ADMIT Family Medicine; ATTEND Family Medicine
DX: I11.0 Hypertensive heart disease with heart failure (principal); E87.1 Hypo-osmolality and hyponatremia; I50.43 Acute on chronic combined systolic (congestive) and diastolic (congestive) heart failure; M99.12 Subluxation complex (vertebral) of thoracic region; J44.9 Chronic obstructive pulmonary disease, unspecified; R07.9 Chest pain, unspecified; R79.89 Other specified abnormal findings of blood chemistry; M54.9 Dorsalgia, unspecified; D64.9 Anemia, unspecified; E03.9 Hypothyroidism, unspecified; D50.8 Other iron deficiency anemias; M19.90 Unspecified osteoarthritis, unspecified site; K21.9 Gastro-esophageal reflux disease without esophagitis; N28.9 Disorder of kidney and ureter, unspecified; Z86.718 Personal history of other venous thrombosis and embolism; Z86.711 Personal history of pulmonary embolism; F41.8 Other specified anxiety disorders; I49.3 Ventricular premature depolarization; Z79.01 Long term (current) use of anticoagulants
CPT/HCPCS: 36415; 71010; 71275; 80053; 82550; 82553; 83605; 83735; 83880; 84443; 84484; 84550; 85025; 85379; 85610; 85730; 86318; 93005; 96372; 96374; 96375; 99285; A9270 ×2; J1650; J1940; J2270; J2405; J7050 ×2; Q9967 ×2; 71020; 72072; 74022; 74178; 76700; 80061; 82150; 82272; 82803; 83036; 83690; 83930; 83935; 84300; 86140; 97018-GO; 97110-GO; 97110-GP; 97116-GP; 97140-GP; 97161-GP; 97165-GO; J2920; J3490; S0028

== ENCOUNTER 2016-09-30 22:53 | Inpatient (IN) | payer MEDICARE, OTHER ==
[2016-09-30] MEDS ORDERED: Famotidine 20 MG/2 ML SDV IVPUSH ONE (23:07)
[2016-09-30] MEDS ORDERED: Labetalol 20 MG/4 ML Syringe IVPUSH ONE (23:11)
[2016-09-30] MEDS: Sodium Chloride 0.9% 10 ML Syringe FLUSH PRN (23:17)
--- NOTE | 2016-09-30 23:26 | EDM.PDOC ---
ED HPI GENERAL MEDICAL PROBLEM - General Chief Complaint: General Stated Complaint: "Flush Feeling", Hypertension Time Seen by Provider: 09/30/16 23:00 Source of Information: Reports: Patient, Family (Granddaughter), Old records ( [facility] chart/EMR) History Limitations: Reports: No limitations - History of Present Illness INITIAL COMMENTS - FREE TEXT/NARRATIVE: The patient was brought to the emergency room via private automobile by her granddaughter for evaluation of non-specific flush sensation in her face with symptoms starting about 21:30 hours this evening. She denies any medication noncompliance with her Lasix therapy increased this morning and initiation of Senna S by her regular provider, LIN Bee, from [facility] in [place], yesterday. She has not taken any medications for her above symptoms to this point. The patient denies any chest pain/pressure, heart flutter, dizziness, orthostasis, orthopnea, diaphoresis, paresthesias, recent decreased exercise tolerance, or any other anginal-type symptoms. No recent history of abdominal pain, heartburn, nausea, diarrhea, melena, gross hematochezia, or any food intolerance, including fatty foods, etc. with normal bowel movement yesterday morning. The patient also denies any recent fever, cough, wheezing, dyspnea, etc.. No history of recent headaches, visual changes, diplopia, change in mental status, or other change in neurological status. Onset: gradual Onset Date: 09/30/16 Onset Time: 21:30 Duration: Getting worse Location: Reports: face. 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 (see below) (none) - Related Data Allergies Allergy/AdvReac Type Severity Reaction Status Date / Time atorvastatin calcium Allergy Lightheaded Verified 09/30/16 23:34 [From Lipitor] ness benzalkonium chloride Allergy Redness Verified 09/30/16 23:34 [From Travatan] celecoxib [From Celebrex] Allergy Change Verified 09/30/16 23:34 Mental Status erythromycin base Allergy Hives Verified 09/30/16 23:34 [Erythromycin Base] iodine Allergy Other Verified 09/30/16 23:34 nifedipine Allergy Swelling Verified 09/30/16 23:34 Penicillins Allergy Swelling Verified 09/30/16 23:34 rofecoxib [From Vioxx] Allergy Change Verified 09/30/16 23:34 Mental Status rosuvastatin calcium Allergy Lightheaded Verified 09/30/16 23:34 [From Crestor] ness sulfamethoxazole Allergy Hives Verified 09/30/16 23:34 [From Sulfamethoprim] travoprost [From Travatan] Allergy Redness Verified 09/30/16 23:34 trimethoprim Allergy Hives Verified 09/30/16 23:34 [From Sulfamethoprim] valdecoxib [From Bextra] Allergy Change Verified 09/30/16 23:34 Mental Status soy Allergy Nausea and Uncoded 09/30/16 23:34 Vomiting Home Meds: Home Meds Acetaminophen 650 mg PO Q4HR PRN 07/15/16 [History] Docusate Sodium [Colace] 2 cap PO BID PRN 07/15/16 [History] Ketotifen Fumarate [Zaditor] 1 drop EYEBOTH BEDTIME 07/15/16 [History] LORazepam [Ativan] 0.5 mg PO BEDTIME PRN 07/15/16 [History] Levothyroxine Sodium [Unithroid] 50 mcg PO DAILY 07/15/16 [History] Losartan Potassium 25 mg PO DAILY 07/15/16 [History] Lutein/Minerals/Vit A,C & E [Ocuvite] 1 tab PO BID 07/15/16 [History] Methyl Salicylate/Menthol [Muscle Rub] 1 applic TOP ASDIRECTED PRN 07/15/16 [ History] Multivitamin [Daily Rajat] 1 tab PO DAILY 07/15/16 [History] Nitroglycerin [Nitrostat] 0.4 mg SL Q5M PRN 07/15/16 [History] Warfarin [Coumadin] 1 tab PO MOTUTHFRSA@1800 07/15/16 [History] Warfarin [Coumadin] 2 mg PO SUWE@1800 07/15/16 [History] Metoprolol Tartrate [Lopressor] 12.5 mg PO Q12HR #15 tablet 07/18/16 [Rx] Hydrocodone/Acetaminophen [Hydrocodone-Acetaminophen 5-325] 0.5 - 1 tab PO Q4HR PRN 08/08/16 [History] Isosorbide Mononitrate [Imdur] 60 mg PO BEDTIME #30 tab.er 08/13/16 [Rx] Cholecalciferol (Vitamin D3) [Vitamin D3] 2,000 unit PO BEDTIME 09/30/16 [ History] Furosemide [Lasix] 40 mg PO DAILY 09/30/16 [History] Lactobacillus Combination No.4 [Probiotic] 1 each PO BEDTIME 09/30/16 [History] Ubidecarenone [Co Q-10] 100 mg PO BEDTIME 09/30/16 [History] Past Medical History HEENT History: Reports: Allergic rhinitis, Cataract, Glaucoma, Hard of hearing, Impaired vision, Other (see below). Denies: Retinal detachment Other HEENT History: Patient wears trifocals, bilateral hearing aides Cardiovascular History: Reports: Afib, Arrhythmia, Blood clots/VTE/DVT, CAD, Cardiomyopathy, Heart Failure, Heart murmur, High cholesterol, Hypertension, PVD , Other (see below). Denies: Aneurysm, Bypass, NC, Pacemaker, Stents, Syncope Other Cardiovascular History: First degree A-V block, PVCs, PACs, distant brief atrial fibrillation, patient denies previous NC despite medical records, grade 2 diastolic dysfunction, moderate left ventricular hypertrophy and left atrial enlargement by echocardiogram, mild pulmonary valve insufficiency and mild to moderate tricuspid valve insufficiency with additional mild mitral valve insufficiency by echocardiogram, mild aortic valve sclerosis without stenosis, mild carotid occlusive, history of superficial thrombophlebitis and varicose veins, DVT of the proximal left femoral vein on 08/09/15 with right-sided PE on 05/08/16 and current warfarin therapy Respiratory History: Reports: COPD, Intubation, previous, PE, Sleep apnea, SOB, Other (see below). Denies: Asthma, Intubation, difficult, Pneumothorax, Pulmonary fibrosis Other Respiratory History: Patient does use CPAP for her moderate to severe obstructive sleep apnea with previous history of nocturnal hypoxemia, PE as above, benign pulmonary nodules with previous left apical benign granuloma by CT scan on 05/08/16, COPD by chest x-ray with no medical therapy Gastrointestinal History: Reports: Chronic constipation, Diverticulosis, GERD, Hiatal hernia, Other (see below). Denies: Celiac disease, Cholelithiasis, Chronic diarrhea, Colon polyp, Fecal incontinence, Gastritis, GI bleed, Hepatitis, Inflammatory bowel disease, Irritable bowel syndrome, Jaundice, Pancreatitis, PUD Other Gastrointestinal History: Probable benign right hepatic mass at about 2.[address] scan on 08/11/16, Benign hepatic cysts by CT scan on 02/18/16, fatty liver secondary to hyperlipidemia Genitourinary History: Reports: Chronic renal insuffiency, Renal disease, Urinary incontinence, Other (see below). Denies: Acute renal failure, Renal calculus, STD, UTI, recurrent Other Genitourinary History: kidney disease stage 3, bilateral benign renal cysts [employer] History: Reports: Dysfunctional uterine bleeding, Fibroids, : 2 Para: 2 (Full term without complications during pregnancies or deliveries) LMP (Approximate): Menopausal Other OB/BYN History: surgical menopause Musculoskeletal History: Reports: Arthritis, Back pain, chronic, Fibromyalgia, Gout, Neck pain, chronic, Osteoarthritis, Osteoporosis, RA. Denies: Amputation , Fracture, SLE Neurological History: Reports: CVA, Headaches, chronic, Migraines, Other (see below). Denies: Alzheimers disease, Cerebral aneurysms, Concussion, Head trauma , MS, Parkinson's, Seizure, TIA Other Neuro History: 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, ambulates with a cane currently, history of distant migraine headaches nonproblematic at this time Psychiatric History: Reports: Addiction, Anxiety, Depression, Other (see below) . Denies: Abuse, victim of, ADD, ADHD, Psych Hospitalization(s), PTSD, Suicide attempt, Suicidal ideation Other Psychiatric History: Chronic narcotic use secondary to her fibromyalgia and arthritis Endocrine/Metabolic History: Reports: Hypothyroidism, Osteoporosis, Other (see below). 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 Denies: AIDS, HIV, SLE Oncologic (Cancer) History: Reports: None. Denies: Basal cell carcinoma, Breast , Cervix, Hodgkin's Lymphoma, Leukemia, Lymphoma, Malignant melanoma, Non- Hodgkin's Lymphoma, Ovarian, Squamous cell carcinoma, Uterine Dermatologic History: Reports: Other (see below). Denies: Eczema, Psoriasis Other Dermatologic History: Actinic keratosis of the nose previously treated - Infectious Disease History Infectious Disease History: Reports: Chicken pox, Measles, Mumps, Shingles. Denies: C-difficile, Meningitis, Mononucleosis, MRSA, Pertussis (whooping cough) , Rheumatic Fever, Rubella, Scarlet fever, TB, VRE - Past Surgical History Head Surgeries/Procedures: Reports: None HEENT Surgical History: Reports: Cataract surgery, Oral surgery, Other (see below). Denies: Adenoidectomy, Eye surgery, Laser surgery, LASIK, Myringotomy w tube(s), Naso-sinus surgery, Tonsillectomy Other HEENT Surgeries/Procedures: Bilateral cataract surgery in 2012, multiple teeth extractions with partial upper dentures Cardiovascular Surgical History: Reports: Varicose, Vascular surgery, Other ( see below). Denies: Coronary artery bypass, Coronary artery stent, Pacer Other Cardiovascular Surgeries/Procedures: Varicose vein stripping in the right leg in 1951 Respiratory Surgical History: Reports: None. Denies: Thoracentesis GI Surgical History: Reports: Appendectomy, Colonoscopy, Other (see below). Denies: EGD, Hernia, abdominal, Hernia, inguinal Other GI Surgeries/Procedures: Colonoscopy in the , appendectomy concomitant with partial hysterectomy as below Female Surgical History: Reports: Breast biopsy, Hysterectomy, Salpingo- oophorectomy, Other (see below). Denies: section, D&C Other Female Surgeries/Procedures: Left breast biopsy for benign disease in the , partial hysterectomy with remaining left ovary secondary to dysfunctional uterine bleeding in the , previous right-sided salpingo- oophorectomy prior to the above hysterectomy Endocrine Surgical History: Reports: None. Denies: Thyroid biopsy Neurological Surgical History: Reports: None. Denies: C-Spine, Discectomy, Laminectomy, Lumbar spine, Sacral Spine, Spinal fusion, Vertebroplasty Musculoskeletal Surgical History: Reports: Arthroscopic knee, Arthroscopic procedure, Carpal tunnel, Hip replacement, Joint replacement, Other (see below) . Denies: Ganglion cyst, ORIF Other Musculoskeletal Surgeries/Procedures:: Left hip TEP on 06/25/15, right carpal tunnel release in about 2004, left carpal tunnel release on 06/29/14, right arthroscopic knee surgery in about 2007 Oncologic Surgical History: Reports: Biopsy of breast, Other (see below) Other Oncologic Surgeries/Procedures: Biopsy of the breast as above Dermatological Surgical History: Reports: None - Past Imaging History Past Imaging History: Reports: Angiography (Negative heart catheterization in about 1999), Cardiac echo (Last on 05/13/16 with ejection fraction of 65-70% and moderate disease as above, previous evaluations on 05/08/16, 05/08/14 and ), Carotid US (11/02/09), CAT scan (CTA of the chest on 08/08/16, CT of the abdomen and pelvis with IV and oral contrast on 08/12/16 with previous evaluations on 02/04/10 and 10/22/14, CT of the chest on 05/08/16), Mammogram ( Last mammogram on 10/08/15), MRI (MRI of the lumbar region and left hip on , MRI of the right knee on 01/22/11), Sleep study (02/13/16 and 10/01/15), Stress testing (Cardiolite stress test on 01/17/10), Ultrasound (Abdominal ultrasound on 08/11/16), Venous doppler (Left leg on 08/09/15, bilateral legs on 05/08/16, right leg on 04/29/10) Social & Family History - Family History HEENT: Reports: Allergic rhinitis, Retinal detachment, Other (see below). Denies: Glaucoma, Macular degeneration Other HEENT Family History: Daughter with retinal detachment Cardiac: Reports: Bypass, CAD, Heart murmur, Heart valve replacement, High cholesterol, Hypertension, NC, PVD/COD, Other (see below). Denies: Afib, Aneurysm, Arrhythmia, Blood clots/VTE/DVT, Heart failure, Syncope Other Cardiac Family History: Son with mechanical valve replacement and CABG x1 at about age 62, son also - also suffers from hypertension and hyperlipidemia, son with agent orange exposure Respiratory: Reports: None. Denies: Asthma, COPD, PE, Pneumothorax, Sleep apnea GI: Reports: Celiac disease, Other (see below). Denies: Colon polyps, GERD, GI bleed, Hiatal hernia, Inflammatory bowel disease, Irritable bowel syndrome Other GI Family History: Daughter with celiac disease : Reports: Renal disease/insufficiency, Other (see below). Denies: Dialysis, Renal calculus Other Family History: Mother with end-stage renal disease OBGYN: Reports: None. Denies: Dysfunctional uterine bleeding, Endometriosis, Recurrent spontaneous Musculoskeletal: Reports: None. Denies: Back pain, chronic, Gout, RA, SLE Neurological: Reports: Migraines, Seizure, Other (see below). Denies: Alzheimers disease, Cerebral aneurysms, CVA, Dementia, MS, Parkinson's, TIA Other Neurological Family History: Granddaughter with seizures at age 19, 2 granddaughters with migraine headaches Psychiatric: Reports: Anxiety, Depression, Other (see below). Denies: Abuse, victim of, ADD, ADHD, Psych hospitalization(s), PTSD, Suicide attempt Other Psychiatric Family History: Son with anxiety depression disorder Endocrine/Metabolic: Reports: None. Denies: Diabetes, type I, Diabetes, type II , Hypothyroidism, IDDM Hematologic: Reports: None. Denies: Anemia, SLE Immunologic: Reports: None. Denies: AIDS, HIV, SLE Dermatologic: Reports: Psoriasis, Other (see below). Denies: Eczema Other Dermatologic Family History: Daughter with psoriasis Oncologic: Reports: Bone, Esophageal, Metastatic, Other (see below). Denies: Cervix, Colon, Hodgkin's lymphoma, Non-Hodgkin's lymphoma, Uterine Other Oncologic Family History: Sister with possible bone cancer fatal at age 18 , sister with fatal throat cancer in her 60s, sister with fatal vaginal cancer in her 60s, father with fatal throat cancer with pulmonary metastases at age 77 - Tobacco Use Smoking Status *Q: Never Smoker Smoking Cessation Information Provided To Patient: No Second Hand Smoke Exposure: No Second Hand Smoke Education Provided: No - Caffeine Use Caffeine Use: Reports: Coffee (4 cups per day), Soda (2 sodas per month), Tea ( 2 cups per week). Denies: Energy drinks - Alcohol Use Alcohol Use History: Yes Days Per Week of Alcohol Use: 0 (No previous DWIs, problems with alcohol abuse, etc.) Number of Drinks Per Day: 1 (Usually occasional beer or wine once per month) Total Drinks Per Week: 0 Alcohol Use in Last Twelve Months: Yes Alcohol Use Frequency: Socially - Recreational Drug Use Recreational Drug Use: No Drug Use in Last 12 Months: No Recreational Drug Type: Denies: Amphetamines (Speed), Cocaine, Codiene, Heroin, LSD (Acid), Marijuana/Hashish, Methamphetamine, Morphine - Living Situation & Occupation Living situation: Reports: (2010, 2 children), alone 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 Denies: fever, chills, malaise, weakness , fatigue, night sweats, diaphoresis, decreased appetite, weight loss, weight gain HEENT: Reports: No symptoms, Glasses. Denies: Dental pain, Ear discharge, Ear pain, Eye pain, Rhinitis, Throat pain, Vertigo, Vision change Respiratory: Reports: No Symptoms. Denies: Shortness of Breath, Wheezing, Cough Cardiovascular: Reports: Blood pressure problem (Elevated on arrival), Edema ( Stable dependent). Denies: Chest pain, Claudication, Dyspnea on exertion, Lightheadedness, Orthopnea, Palpitations, PND, Syncope Endocrine: Reports: no symptoms. Denies: fatigue GI/Abdominal: Reports: No symptoms. Denies: Abdominal pain, Anorexia, Black stool, Bloody stool, Constipation, Diarrhea, Decreased appetite, Difficulty swallowing, Flatus, Hematemesis, Hematochezia, Melena, Mucous in stool, Nausea, Stool incontinence, Vomiting, Other : Reports: no symptoms. Denies: discharge, dysuria, flank pain, frequency, hematuria, incontinence, pain, urgency, urinary retention Musculoskeletal: Reports: joint pain (Stable generalized), muscle pain (Stable generalized). Denies: neck pain, shoulder pain, back pain, leg pain Skin: Reports: no symptoms. Denies: diaphoresis, bruising, wound Neurological: Reports: No Symptoms. Denies: Confusion, Dizziness, Headache, Paresthesia, Seizure, Syncope, Tingling, Difficulty Walking, Weakness Psychiatric: Reports: No symptoms. Denies: Agitation, Anxiety, Confusion, Depression, Hallucinations Hematologic/Lymphatic: Reports: no symptoms Immunologic: Reports: no symptoms ED EXAM, GENERAL - Physical Exam Exam: See Below Exam Limited By: No limitations General Appearance: alert, WD/WN, no apparent distress, anxious (Mild) Eye Exam: bilateral eye: EOMI, normal fundi, normal inspection (No nystagmus), PERRL Ears: normal external exam, hearing grossly normal, normal TMs, hearing loss ( Bilateral presbycusis-mild, no hearing aids) Nose: normal inspection, normal mucosa, no blood Throat/Mouth: Normal inspection, Normal lips, Normal teeth (Occasional missing teeth), Normal gums, Normal oropharynx, Normal voice, No airway compromise. No : Dysphagia, Inflammation Head: atraumatic, normocephalic. No: facial swelling, facial tenderness, sinus tenderness Neck: supple, non-tender, full range of motion, carotid bruit (Mild bilateral carotid bruits). No: lymphadenopathy (L), lymphadenopathy (R), thyromegaly Respiratory/Chest: no respiratory distress, lungs clear, normal breath sounds, no accessory muscle use, chest non-tender. No: retractions Cardiovascular: normal peripheral pulses, no edema (Dependent edema as below), no gallop, no JVD, no murmur, no rub, extra beats (Mild to moderately frequent PVCs by traffic monitor specialist with normal rate). No: gallop/S3, gallop/S4, friction rub Peripheral Pulses: 1+: dorsalis pedis (L), dorsalis pedis (R), 2+: radial (L), radial (R) GI/Abdominal: Normal Bowel Sounds, Soft, Non-Tender, No Organomegaly, No Distention, No Abnormal Bruit, No Mass, Pelvis Stable, Other (Obese). No: Guarding (Female) Exam: Deferred Rectal (Female) Exam: Deferred Back Exam: normal inspection, full range of motion. No: CVA tenderness (L), CVA tenderness (R), muscle spasm Extremities: normal range of motion, non-tender, normal capillary refill, pedal edema (+1 to +2 bilateral pedal/pretibial edema). No: Sergio's Sign Neurological: alert, oriented, CN II-XII intact, normal cognition, normal gait, normal reflexes (Negative Babinski's), no motor/sensory deficits Psychiatric: anxious (Mild). No: depressed mood Skin Exam: Warm, Dry, Intact, Normal color, No rash. No: Diaphoretic, Wound/ incision Lymphatic: no adenopathy EKG INTERPRETATION EKG Date: 09/30/16 Time: 23:16 Rhythm: NSR (With occasional multiform PVCs) Rate (beats/min): 71 [place]: normal (Left cardiac axis) P-wave: enlarged (Mild to moderate diffuse biphasic P waves with extreme poor R- wave progression in the anterior leads) QRS: normal (QRS interval of 0.09 seconds representing repolarization changes) ST-T: normal (New T wave inversion in lead V1 with resolution of previous T- wave inversions in leads 1 and aVL and nonspecific ST changes in leads 1, 2, and aVL since last EKG on 07/30/16) QT: normal CA/PQ Interval: 0.19 seconds Comparison: change from previous EKG (As above) EKG Interpretation Comments: 1. No acute ischemic changes with previous history of probable lateral wall cardiac ischemia 2. PVCs 3. Probable left atrial enlargement Course - Vital Signs Last Recorded V/S: Last Vital Signs Temp 36.5 C 10/01/16 00:00 Pulse 68 10/01/16 00:05 Resp 15 10/01/16 00:05 BP 160/56 H 10/01/16 00:05 Pulse Ox 98 10/01/16 00:05 Vital Signs - 24 hr 09/30/16 09/30/16 09/30/16 22:55 23:05 23:20 Temperature [ 36.5 C Oral] Pulse, 68 76 Peripheral [ Pulse Oximetry] Respiratory 16 15 18 Rate Blood Pressure 220/88 H 212/75 H 180/62 H [Right Upper Arm] O2 Sat by Pulse 97 100 97 Oximetry 09/30/16 09/30/16 10/01/16 23:35 23:50 00:00 Temperature [ 36.5 C Oral] Pulse, 69 67 Peripheral [ Pulse Oximetry] Respiratory 18 15 Rate Blood Pressure 197/76 H 179/60 H [Right Upper Arm] O2 Sat by Pulse 98 99 Oximetry 10/01/16 00:05 Temperature [ Oral] Pulse, 68 Peripheral [ Pulse Oximetry] Respiratory 15 Rate Blood Pressure 160/56 H [Right Upper Arm] O2 Sat by Pulse 98 Oximetry - Orders/Labs/Meds Orders: Active Orders 24 hr Category Date Time Status Cardiac Monitoring [RC] . DIRECTED Care 09/30/16 23:08 Active EKG Documentation Completion [RC] ASDIRECTED Care 09/30/16 23:08 Active Peripheral IV Care [RC] . DIRECTED Care 09/30/16 23:08 Active Pulse Oximetry [RC] CONTINUOUS Care 09/30/16 23:08 Active Up With Assistance [RC] PFP Care 09/30/16 23:08 Active Vital Signs [RC] PFP Care 09/30/16 23:08 Active Nothing per Oral Now Diet [DIET] Diet 09/30/16 Breakfast Active Chest 1V Frontal [CR] Stat Exams 09/30/16 23:08 Taken Sodium Chloride 0.9% [Saline Flush] Med 09/30/16 23:07 Active 10 ml FLUSH ASDIRECTED PRN Obtain Past Medical Record [OM.PC] Urgent Oth 09/30/16 23:08 Active Peripheral IV Insertion Adult [OM.PC] Stat Oth 09/30/16 23:08 Ordered Resuscitation Status Stat Resus Stat 09/30/16 23:07 Ordered Medication Orders Sodium Chloride (Saline Flush) 10 ml FLUSH ASDIRECTED PRN PRN Reason: Keep Vein Open Last Admin: 09/30/16 23:17 Dose: 10 ml Labs: Laboratory Tests 09/30/16 09/30/16 09/30/16 Range/Units 23:15 23:15 23:15 WBC 5.4 (4.0-10.2) K/uL RBC 3.92 (3.77-5.09) M/uL Hgb 10.5 L (11.7-15.5) g/dL Hct 32.7 L (34.0-46.0) % MCV 83.4 L (84.0-98.0) fL MCH 26.8 L (28.2-33.3) pg MCHC 32.1 (31.7-36.0) g/dL RDW 14.9 H (11.2-14.1) % Plt Count 262 (150-350) K/uL Neut % (Auto) 62.2 (45.0-80.0) % Lymph % (Auto) 26.2 (10.0-50.0) % Elliott % (Auto) 9.6 (2.0-14.0) % Eos % (Auto) 1.3 (0.0-5.0) % Baso % (Auto) 0.7 (0.0-2.0) % Neut # (Auto) 3.38 (1.40-7.00) K/uL Lymph # (Auto) 1.42 (0.50-3.50) K/uL Elliott # (Auto) 0.52 (0.00-1.00) K/uL Eos # (Auto) 0.07 (0.00-0.50) K/uL Baso # (Auto) 0.04 (0.00-0.20) K/uL PT 24.2 H (9.8-11.7) SEC INR 2.2 APTT 38.5 H (23.5-30.0) SEC D-Dimer, Quantitative 292 (0-400) ng/mL Sodium (136-145) mmol/L Potassium (3.5-5.1) mmol/L Chloride (98-107) mmol/L Carbon Dioxide (21.0-32.0) mmol/L BUN (7-18) mg/dL Creatinine (0.51-1.17) mg/dL Est Cr Clr Drug Dosing Estimated GFR (MDRD) mL/min Glucose (74-106) mg/dL Lactic Acid (0.4-2.0) mmol/L Uric Acid (2.6-7.2) mg/dL Calcium (8.5-10.1) mg/dL Magnesium (1.8-2.4) mg/dL Total Bilirubin (0.2-1.0) mg/dL AST (15-37) U/L ALT (12-78) U/L Alkaline Phosphatase (46-116) IU/L Creatine Kinase (26-308) U/L Creatine Kinase Index (0.0-2.5) % CK-MB (CK-2) (0.00-3.60) ng/mL Troponin I (0.000-0.056) ng/mL Ywy-Y-Bucaqrxblla Pept (0-125) pg/mL Total Protein (6.4-8.2) g/dL Albumin (3.4-5.0) g/dL TSH, Ultra Sensitive (0.358-3.740) mIU/mL H. pylori IgG Antibody (NEGATIVE) 09/30/16 09/30/16 09/30/16 Range/Units 23:15 23:15 23:15 WBC (4.0-10.2) K/uL RBC (3.77-5.09) M/uL Hgb (11.7-15.5) g/dL Hct (34.0-46.0) % MCV (84.0-98.0) fL MCH (28.2-33.3) pg MCHC (31.7-36.0) g/dL RDW (11.2-14.1) % Plt Count (150-350) K/uL Neut % (Auto) (45.0-80.0) % Lymph % (Auto) (10.0-50.0) % Elliott % (Auto) (2.0-14.0) % Eos % (Auto) (0.0-5.0) % Baso % (Auto) (0.0-2.0) % Neut # (Auto) (1.40-7.00) K/uL Lymph # (Auto) (0.50-3.50) K/uL Elliott # (Auto) (0.00-1.00) K/uL Eos # (Auto) (0.00-0.50) K/uL Baso # (Auto) (0.00-0.20) K/uL PT (9.8-11.7) SEC INR APTT (23.5-30.0) SEC D-Dimer, Quantitative (0-400) ng/mL Sodium 136 (136-145) mmol/L Potassium 4.0 (3.5-5.1) mmol/L Chloride 99 (98-107) mmol/L Carbon Dioxide 27.2 (21.0-32.0) mmol/L BUN 21 H (7-18) mg/dL Creatinine 0.89 (0.51-1.17) mg/dL Est Cr Clr Drug Dosing TNP Estimated GFR (MDRD) 60 mL/min Glucose 118 H (74-106) mg/dL Lactic Acid 1.3 (0.4-2.0) mmol/L Uric Acid 4.8 (2.6-7.2) mg/dL Calcium 8.9 (8.5-10.1) mg/dL Magnesium 2.1 (1.8-2.4) mg/dL Total Bilirubin 0.4 (0.2-1.0) mg/dL AST 27 (15-37) U/L ALT 25 (12-78) U/L Alkaline Phosphatase 70 (46-116) IU/L Creatine Kinase 62 (26-308) U/L Creatine Kinase Index 2.1 (0.0-2.5) % CK-MB (CK-2) 1.30 (0.00-3.60) ng/mL Troponin I 0.034 (0.000-0.056) ng/mL [id number]-M-[id number] Pept 2899 H (0-125) pg/mL Total Protein 7.4 (6.4-8.2) g/dL Albumin 3.8 (3.4-5.0) g/dL TSH, Ultra Sensitive 3.358 (0.358-3.740) mIU/mL H. pylori IgG Antibody Negative (NEGATIVE) Meds: Medications Generic Name Dose Route Start Last Admin Trade Name Freq PRN Reason Stop Dose Admin Sodium Chloride 10 ml 09/30/16 23:07 09/30/16 23:17 Saline Flush FLUSH 10 ml ASDIRECTED PRN Administration Keep Vein Open Discontinued Medications Generic Name Dose Route Start Last Admin Trade Name Freq PRN Reason Stop Dose Admin Famotidine 40 mg 09/30/16 23:07 09/30/16 23:16 Pepcid IVPUSH 09/30/16 23:08 40 mg ONETIME ONE Administration Hydralazine HCl 10 mg 09/30/16 23:37 09/30/16 23:44 Apresoline IVPUSH 09/30/16 23:38 10 mg ONETIME ONE Administration Labetalol HCl 10 mg 09/30/16 23:11 09/30/16 23:15 Normodyne IVPUSH 09/30/16 23:12 10 mg ONETIME ONE Administration Protocol - Radiology Interpretation Free Text/Narrative:: Manufacturing Engineer showed normal sinus rhythm with exception of mild to moderately frequent mostly uniform PVCs with initial heart rate in the 70s with no other ectopy or arrhythmia Chest x-ray, portable, shows evidence of moderate COPD changes with probable pulmonary hypertension and mild centralized CHF. No pulmonary infiltrates, cardiomegaly, pneumothorax, etc. Mild prominence of the proximal aortic arch Departure - Departure Time of Disposition: 00:30 Disposition: Admitted As Inpatient 65 Condition: good Clinical Impression: CHF (congestive heart failure), Peptic reflux disease, Osteoarthritis, Hypothyroidism, HTN (hypertension), COPD (chronic obstructive pulmonary disease) , Iron deficiency anemia, PVC's (premature ventricular contractions) - Problem List & Annotations (1) HTN (hypertension) SNOMED Code(s): 75692848 Code(s): I10 - ESSENTIAL (PRIMARY) HYPERTENSION Status: Acute Priority: High Current Visit: Yes Annotation/Comment:: Hypertensive crisis prior to admission. Overall good response to IV labetalol and hydralazine. Note progressive CHF with change to IV Lasix therapy. Continue medication adjustment during this hospitalization. No chest pain or anginal complaints. Cardiac enzymes are normal with exception of moderate BNP elevation and secondary change to troponin I, which is still normal. Resolution of her previous borderline mild lateral wall cardiac ischemia by previous EKG. Repeat EKG and cardiac enzymes in the a.m. Chest pain protocol was not initiated in the emergency room secondary to absence of anginal complaints. Qualifiers: Hypertension type: essential hypertension (2) CHF (congestive heart failure) SNOMED Code(s): 53420370 Code(s): I50.9 - HEART FAILURE, UNSPECIFIED Status: Acute Priority: High Current Visit: Yes Onset Date: 10/01/16 Annotation/Comment:: Initiate aggressive IV Lasix therapy with caution secondary to her previous history of renal insufficiency Qualifiers: Congestive heart failure type: combined Congestive heart failure chronicity : acute on chronic Qualified Code(s): I50.43 - Acute on chronic combined systolic (congestive) and diastolic (congestive) heart failure (3) COPD (chronic obstructive pulmonary disease) SNOMED Code(s): 37967549 Code(s): J44.9 - CHRONIC OBSTRUCTIVE PULMONARY DISEASE, UNSPECIFIED Status : Chronic Priority: Medium Current Visit: Yes Annotation/Comment:: No recent fever her bronchitic-type symptoms. Note additional history of sleep apnea with patient to use her own machine during this hospitalization Qualifiers: COPD type: emphysema Emphysema type: panlobular Qualified Code(s): J43.1 - Panlobular emphysema (4) Hypothyroidism SNOMED Code(s): 20382901 Code(s): E03.9 - HYPOTHYROIDISM, UNSPECIFIED Status: Chronic Priority: Medium Current Visit: Yes Annotation/Comment:: Currently under therapy. TSH normal today (5) Iron deficiency anemia SNOMED Code(s): 75677839 Code(s): D50.9 - IRON DEFICIENCY ANEMIA, UNSPECIFIED Status: Chronic Priority: Medium Current Visit: Yes Annotation/Comment:: Mild anemia although stable from previous hospitalizations. No evidence of acute GI bleed. Repeat blood work in the a.m. Qualifiers: Iron deficiency anemia type: unspecified iron deficiency Qualified Code(s) : D50.9 - Iron deficiency anemia, unspecified (6) Mixed anxiety depressive disorder SNOMED Code(s): 286618218 Code(s): F41.8 - OTHER SPECIFIED ANXIETY DISORDERS Status: Chronic Current Visit: Yes Annotation/Comment:: Stable by patient history with continued close observation by her regular provider (7) Osteoarthritis SNOMED Code(s): 761047688 Code(s): M19.90 - UNSPECIFIED OSTEOARTHRITIS, UNSPECIFIED SITE Status: Chronic Priority: Medium Current Visit: Yes Annotation/Comment:: Recently under moderate control by patient history with additional history of rheumatoid arthritis, gout, and fibromyalgia. She is on chronic narcotic medication with steroid injection received [place] [facility] by her history. Further medication adjustments by her regular providers depending on her clinical course (8) PVC's (premature ventricular contractions) SNOMED Code(s): 26287551 Code(s): I49.3 - VENTRICULAR PREMATURE DEPOLARIZATION Status: Chronic Priority: Medium Current Visit: Yes Annotation/Comment:: Some moderate frequency of PVCs with previous history of first degree AV block. Note labetalol therapy given in the emergency room. Continue medication adjustment and cardiac monitoring as above (9) Peptic reflux disease SNOMED Code(s): 95775287 Code(s): K21.9 - GASTRO-ESOPHAGEAL REFLUX DISEASE WITHOUT ESOPHAGITIS Status: Chronic Priority: Medium Current Visit: Yes Annotation/Comment:: H. pylori negative today. Currently nonsymptomatic with IV Pepcid given in the emergency room as GI prophylaxis - Problem List Review Problem List Initiated/Reviewed/Updated: Yes - My Orders Last 24 Hours: My Active Orders 09/30/16 23:07 Sodium Chloride 0.9% [Saline Flush] 10 ml FLUSH ASDIRECTED PRN Resuscitation Status Stat 09/30/16 23:08 Cardiac Monitoring [RC] . DIRECTED EKG Documentation Completion [RC] ASDIRECTED Peripheral IV Care [RC] . DIRECTED Pulse Oximetry [RC] CONTINUOUS Up With Assistance [RC] PFP Vital Signs [RC] PFP Chest 1V Frontal [CR] Stat Obtain Past Medical Record [OM.PC] Urgent Peripheral IV Insertion Adult [OM.PC] Stat 09/30/16 Breakfast Nothing per Oral Now Diet [DIET] - Assessment/Plan Admission H&P: Please use this note as an admission H&P Last 24 Hours: My Active Orders 09/30/16 23:07 Sodium Chloride 0.9% [Saline Flush] 10 ml FLUSH ASDIRECTED PRN Resuscitation Status Stat 09/30/16 23:08 Cardiac Monitoring [RC] . DIRECTED EKG Documentation Completion [RC] ASDIRECTED Peripheral IV Care [RC] . DIRECTED Pulse Oximetry [RC] CONTINUOUS Up With Assistance [RC] PFP Vital Signs [RC] PFP Chest 1V Frontal [CR] Stat Obtain Past Medical Record [OM.PC] Urgent Peripheral IV Insertion Adult [OM.PC] Stat 09/30/16 Breakfast Nothing per Oral Now Diet [DIET] Assessment:: As above Plan: As above. Extensive precautions were given to the patient and her granddaughter , who are in agreement with the treatment plan. [facility] [place] care in the a.m. The patient will require about 3-4 days of inpatient/acute care secondary to multiple health problems as above.
[2016-09-30] MEDS ORDERED: hydrALAZINE 20 MG/ML SDV IVPUSH ONE (23:37)
[2016-09-30 23:48] LABS: CHLORIDE,CL 99 mmol/L (98-107); SODIUM,NA 136 mmol/L (136-145)
[2016-10-01] MEDS ORDERED: Docusate Sodium 100 MG Cap PO PRN (00:40)
[2016-10-01] MEDS ORDERED: Acetaminophen 325 MG Tab PO PRN (00:40)
[2016-10-01] MEDS ORDERED: Sodium Chloride 0.9% 10 ML Syringe FLUSH PRN (00:41)
[2016-10-01] MEDS: Furosemide 40 MG/4 ML VIAL IVPUSH SCH ×2 (00:58→08:30)
[2016-10-01] MEDS ORDERED: Menthol/Methyl Salicylate 85 GM Tube TOP PRN (01:00)
[2016-10-01] MEDS ORDERED: Ondansetron 4 MG/2 ML SDV IVPUSH ONE (01:33)
[2016-10-01] MEDS: LORazepam 0.5 MG Tab PO PRN (02:01)
[2016-10-01] MEDS: Metoprolol Tartrate 25 MG Tab PO SCH ×2 (07:41→19:27)
[2016-10-01] MEDS: Losartan 50 MG Tab PO SCH (07:42)
[2016-10-01] MEDS: Levothyroxine 50 MCG Tab PO SCH (07:43)
[2016-10-01] MEDS: Potassium Chloride 20 MEQ Tab.ER PO SCH ×2 (07:43→11:48)
[2016-10-01] MEDS: Sodium Chloride 0.9% 10 ML Syringe FLUSH PRN (08:30)
[2016-10-01] MEDS: Acetaminophen 325 MG Tab PO PRN (16:12)
[2016-10-01] MEDS ORDERED: Acetaminophen/HYDROcodone 325-5 MG Tab PO PRN (17:29)
[2016-10-01] MEDS ORDERED: methylPREDNISolone Sodium Succinate 40 MG/1 ML SDV IVPUSH ONE (18:00)
[2016-10-01] MEDS ORDERED: Warfarin 2 MG Tab PO SCH (18:00)
[2016-10-01] MEDS: Isosorbide Mononitrate 60 MG Tab.ER PO SCH (19:27)
[2016-10-01] MEDS: KETOTIFEN FUMARATE EYEBOTH SCH (19:27)
[2016-10-01] MEDS ORDERED: Famotidine 20 MG/2 ML SDV IVPUSH SCH (21:00)
--- NOTE | 2016-10-01 23:21 | PCM.PN ---
- General Info Date of Service: 10/01/16 Functional Status: Reports: other (terrible pain) - Review of Systems General: Reports: Weakness HEENT: Reports: no symptoms Pulmonary: Reports: no symptoms Cardiovascular: Reports: No Symptoms Gastrointestinal: Reports: No symptoms Genitourinary: Reports: no symptoms Musculoskeletal: Reports: hand pain, joint pain Skin: Reports: no symptoms Neurological: Reports: Weakness Psychiatric: Reports: depression - Patient Data Vitals - most recent: Last Vital Signs Temp 98.5 F 10/01/16 20:00 Pulse 72 10/01/16 20:00 Resp 20 10/01/16 20:00 BP 150/70 H 10/01/16 20:00 Pulse Ox 96 10/01/16 20:00 Weight - most recent: 170 lb 3.185 oz I&O - last 24 hours: Intake & Output 10/01/16 10/01/16 10/02/16 14:59 22:59 06:59 Intake Total 240 Output Total 300 Balance -60 Lab Results last 24 hrs: Laboratory Results - last 24 hr 10/01/16 10/01/16 10/01/16 Range/Units 06:50 06:50 06:50 WBC 6.5 (4.0-10.2) K/uL RBC 3.69 L (3.77-5.09) M/uL Hgb 10.0 L (11.7-15.5) g/dL Hct 31.0 L (34.0-46.0) % MCV 84.0 (84.0-98.0) fL MCH 27.1 L (28.2-33.3) pg MCHC 32.3 (31.7-36.0) g/dL RDW 14.9 H (11.2-14.1) % Plt Count 240 (150-350) K/uL Neut % (Auto) 71.0 (45.0-80.0) % Lymph % (Auto) 18.9 (10.0-50.0) % [place] % (Auto) 8.9 (2.0-14.0) % Eos % (Auto) 0.6 (0.0-5.0) % Baso % (Auto) 0.6 (0.0-2.0) % Neut # (Auto) 4.62 (1.40-7.00) K/uL Lymph # (Auto) 1.23 (0.50-3.50) K/uL [place] # (Auto) 0.58 (0.00-1.00) K/uL Eos # (Auto) 0.04 (0.00-0.50) K/uL Baso # (Auto) 0.04 (0.00-0.20) K/uL Sodium 137 (136-145) mmol/L Potassium 3.8 (3.5-5.1) mmol/L Chloride 99 (98-107) mmol/L Carbon Dioxide 29.9 (21.0-32.0) mmol/L BUN 19 H (7-18) mg/dL Creatinine 0.93 (0.51-1.17) mg/dL Est Cr Clr Drug Dosing 37.07 mL/min Estimated GFR (MDRD) 57 mL/min Glucose 103 (74-106) mg/dL Hemoglobin A1c 5.8 H (4.3-5.7) % Calcium 8.8 (8.5-10.1) mg/dL Total Bilirubin 0.4 (0.2-1.0) mg/dL AST 25 (15-37) U/L ALT 23 (12-78) U/L Alkaline Phosphatase 64 (46-116) IU/L Creatine Kinase 52 (26-308) U/L Creatine Kinase Index 2.1 (0.0-2.5) % CK-MB (CK-2) 1.10 (0.00-3.60) ng/mL Troponin I 0.038 (0.000-0.056) ng/mL Wcy-[id number]-Fuvsyhrawkp Pept 3631 H (0-125) pg/mL Total Protein 6.9 (6.4-8.2) g/dL Albumin 3.6 (3.4-5.0) g/dL Triglycerides 89 (30-150) mg/dL Cholesterol 215 H (100-200) mg/dL LDL Cholesterol, Calc 120 H (0-100) mg/dL HDL Cholesterol 77 H (40-60) mg/dL Med Orders - Current: Current Medications Acetaminophen (Tylenol) 650 mg PO Q4H PRN PRN Reason: Fever Last Admin: 10/01/16 16:12 Dose: 650 mg Hydrocodone Bitart/Acetaminophen ([place] 325-5 Mg) 1 tab PO Q4H PRN PRN Reason: Pain Coenzyme Q10 (Coenzyme Q10) 100 mg PO BEDTIME [facility] Last Admin: 10/01/16 19:27 Dose: 100 mg Docusate Sodium (Colace) 200 mg PO BID PRN PRN Reason: Constipation Isosorbide Mononitrate (Imdur) 60 mg PO BEDTIME [facility] Last Admin: 10/01/16 19:27 Dose: 60 mg Levothyroxine Sodium (Synthroid) 50 mcg PO ACBREAKFAST [facility] Last Admin: 10/01/16 07:43 Dose: 50 mcg Lorazepam (Ativan) 0.5 mg PO BEDTIME PRN PRN Reason: restlessness Last Admin: 10/01/16 02:01 Dose: 0.5 mg Losartan Potassium (Cozaar) 25 mg PO DAILY [facility] Last Admin: 10/01/16 07:42 Dose: 25 mg Methyl Salicylate (Icy Hot Cream) 0 gm TOP ASDIRECTED PRN PRN Reason: Other Last Admin: 10/01/16 19:29 Dose: 1 applic Methylprednisolone Sodium Succinate (Solu-Medrol) 40 mg IVPUSH DAILY [facility] Metoprolol Tartrate (Lopressor) 12.5 mg PO Q12HR [facility] Last Admin: 10/01/16 19:27 Dose: 12.5 mg Non-Formulary Medication (Ketotifen Fumarate [Zaditor]) 1 drop EYEBOTH BEDTIME [facility] Last Admin: 10/01/16 19:27 Dose: Not Given Sodium Chloride (Saline Flush) 10 ml FLUSH ASDIRECTED PRN PRN Reason: Keep Vein Open Last Admin: 10/01/16 08:30 Dose: 10 ml Sodium Chloride (Saline Flush) 10 ml FLUSH Q12HR PRN PRN Reason: Keep Vein Open Warfarin Sodium (Coumadin) 2 mg PO SUWE@1800 [facility] Last Admin: 10/01/16 17:54 Dose: 2 mg Warfarin Sodium (Coumadin) 1 mg PO MoTuThFrSa@1800 [facility] Discontinued Medications Acetaminophen (Tylenol) 650 mg PO Q4HR PRN PRN Reason: Pain/Fever Famotidine (Pepcid) 40 mg IVPUSH ONETIME ONE Stop: 09/30/16 23:08 Last Admin: 09/30/16 23:16 Dose: 40 mg Famotidine (Pepcid) 20 mg IVPUSH BID@0800,1999 [facility] Last Admin: 10/01/16 21:57 Dose: 20 mg Furosemide (Lasix) 40 mg IVPUSH Q8H [facility] Last Admin: 10/01/16 08:30 Dose: 40 mg Hydralazine HCl (Apresoline) 10 mg IVPUSH ONETIME ONE Stop: 09/30/16 23:38 Last Admin: 09/30/16 23:44 Dose: 10 mg Labetalol HCl (Normodyne) 10 mg IVPUSH ONETIME ONE PRN Reason: Protocol Stop: 09/30/16 23:12 Last Admin: 09/30/16 23:15 Dose: 10 mg Methylprednisolone Sodium Succinate (Solu-Medrol) 40 mg IVPUSH ONETIME ONE Stop: 10/01/16 18:01 Last Admin: 10/01/16 17:52 Dose: 40 mg Ondansetron HCl (Zofran) 4 mg IVPUSH ONETIME ONE Stop: 10/01/16 01:34 Last Admin: 10/01/16 02:01 Dose: 4 mg Potassium Chloride (Klor-Con M20) 20 meq PO TIDMEALS [facility] Last Admin: 10/01/16 11:48 Dose: 20 meq Warfarin Sodium (Coumadin) 1 mg PO MoTuThFrSa [facility] Last Admin: 10/01/16 14:50 Dose: Not Given Warfarin Sodium (Coumadin) 1 mg PO NOW ONE Stop: 10/01/16 01:16 Last Admin: 10/01/16 02:01 Dose: 1 mg - Exam General: alert, cooperative, mild distress HEENT: Pupils equal, Pupils reactive, Mucous membr. moist/pink Neck: trachea midline, no JVD Lungs: Normal respiratory effort, Decreased breath sounds Cardiovascular: Irregular Rhythm Abdomen: bowel sounds present, soft, no tenderness, no distension (Female) Exam: Deferred Back Exam: normal inspection Extremities: no calf tenderness, edema Skin: warm, dry, intact Neurological: no new focal deficit Psy/Mental Status: alert, normal affect, normal mood - Problem List & Annotations (1) CHF (congestive heart failure) SNOMED Code(s): 66899928 Code(s): I50.9 - HEART FAILURE, UNSPECIFIED Status: Acute Priority: High Current Visit: Yes Onset Date: 10/01/16 Qualifiers: Congestive heart failure type: combined Congestive heart failure chronicity : acute on chronic Qualified Code(s): I50.43 - Acute on chronic combined systolic (congestive) and diastolic (congestive) heart failure Annotation/Comment:: Initiate aggressive IV Lasix therapy with caution secondary to her previous history of renal insufficiency (2) COPD (chronic obstructive pulmonary disease) SNOMED Code(s): 35843405 Code(s): J44.9 - CHRONIC OBSTRUCTIVE PULMONARY DISEASE, UNSPECIFIED Status : Acute Current Visit: Yes (3) HTN (hypertension) SNOMED Code(s): 44894128 Code(s): I10 - ESSENTIAL (PRIMARY) HYPERTENSION Status: Acute Priority: High Current Visit: Yes Qualifiers: Hypertension type: essential hypertension Annotation/Comment:: Hypertensive crisis prior to admission. Overall good response to IV labetalol and hydralazine. Note progressive CHF with change to IV Lasix therapy. Continue medication adjustment during this hospitalization. No chest pain or anginal complaints. Cardiac enzymes are normal with exception of moderate BNP elevation and secondary change to troponin I, which is still normal. Resolution of her previous borderline mild lateral wall cardiac ischemia by previous EKG. Repeat EKG and cardiac enzymes in the a.m. Chest pain protocol was not initiated in the emergency room secondary to absence of anginal complaints. (4) Hypothyroidism SNOMED Code(s): 09553707 Code(s): E03.9 - HYPOTHYROIDISM, UNSPECIFIED Status: Acute Current Visit : Yes (5) Iron deficiency anemia SNOMED Code(s): 22652897 Code(s): D50.9 - IRON DEFICIENCY ANEMIA, UNSPECIFIED Status: Acute Current Visit: Yes (6) Osteoarthritis SNOMED Code(s): 193616143 Code(s): M19.90 - UNSPECIFIED OSTEOARTHRITIS, UNSPECIFIED SITE Status: Acute Current Visit: Yes (7) PVC's (premature ventricular contractions) SNOMED Code(s): 77385847 Code(s): I49.3 - VENTRICULAR PREMATURE DEPOLARIZATION Status: Acute Current Visit: Yes (8) Peptic reflux disease SNOMED Code(s): 91255964 Code(s): K21.9 - GASTRO-ESOPHAGEAL REFLUX DISEASE WITHOUT ESOPHAGITIS Status: Acute Current Visit: Yes (9) Pulmonary emboli SNOMED Code(s): 74416503, 00483214 Code(s): I26.99 - OTHER PULMONARY EMBOLISM WITHOUT ACUTE COR PULMONALE Status: Acute Priority: High Current Visit: Yes (10) Anemia SNOMED Code(s): 675577632 Code(s): D64.9 - ANEMIA, UNSPECIFIED Status: Chronic Priority: Medium Current Visit: Yes Annotation/Comment:: Continue on the iron, iron does not seem to be contributing to patient's nausea. (11) COPD (chronic obstructive pulmonary disease) SNOMED Code(s): 81936113 Code(s): J44.9 - CHRONIC OBSTRUCTIVE PULMONARY DISEASE, UNSPECIFIED Status : Chronic Priority: Medium Current Visit: Yes Qualifiers: COPD type: emphysema Emphysema type: panlobular Qualified Code(s): J43.1 - Panlobular emphysema Annotation/Comment:: No recent fever her bronchitic-type symptoms. Note additional history of sleep apnea with patient to use her own machine during this hospitalization (12) Hypothyroidism SNOMED Code(s): 44535120 Code(s): E03.9 - HYPOTHYROIDISM, UNSPECIFIED Status: Chronic Priority: Medium Current Visit: Yes Annotation/Comment:: Currently under therapy. TSH normal today (13) Iron deficiency anemia SNOMED Code(s): 17527106 Code(s): D50.9 - IRON DEFICIENCY ANEMIA, UNSPECIFIED Status: Chronic Priority: Medium Current Visit: Yes Qualifiers: Iron deficiency anemia type: unspecified iron deficiency Qualified Code(s) : D50.9 - Iron deficiency anemia, unspecified Annotation/Comment:: Mild anemia although stable from previous hospitalizations. No evidence of acute GI bleed. Repeat blood work in the a.m. (14) Mixed anxiety depressive disorder SNOMED Code(s): 251812371 Code(s): F41.8 - OTHER SPECIFIED ANXIETY DISORDERS Status: Chronic Current Visit: Yes Annotation/Comment:: Stable by patient history with continued close observation by her regular provider (15) Osteoarthritis SNOMED Code(s): 917536521 Code(s): M19.90 - UNSPECIFIED OSTEOARTHRITIS, UNSPECIFIED SITE Status: Chronic Priority: Medium Current Visit: Yes Annotation/Comment:: Recently under moderate control by patient history with additional history of rheumatoid arthritis, gout, and fibromyalgia. She is on chronic narcotic medication with steroid injection received in [facility] [place] yesterday by her history. Further medication adjustments by her regular providers depending on her clinical course (16) Comfort measures only status SNOMED Code(s): 88180020222432 Code(s): Z51.5 - ENCOUNTER FOR PALLIATIVE CARE Status: Acute Priority: Medium Current Visit: No (17) History of hip replacement SNOMED Code(s): 098267902 Code(s): Z96.649 - PRESENCE OF UNSPECIFIED ARTIFICIAL HIP JOINT Status: Acute Priority: High Current Visit: No Qualifiers: Laterality: left Qualified Code(s): Z96.642 - Presence of left artificial hip joint (18) DVT (deep venous thrombosis) SNOMED Code(s): 383395644 Code(s): I82.409 - ACUTE EMBOLISM AND THOMBOS UNSP DEEP VN UNSP LOWER EXTREMITY Status: Chronic Priority: High Current Visit: No Onset Date: 07/27/15 Qualifiers: DVT location: lower extremity Affected thrombotic vein of extremity: femoral Laterality: left Chronicity: unspecified Qualified Code(s): I82.412 - Acute embolism and thrombosis of left femoral vein Annotation/Comment:: History of DVT and PE as above with mildly subtherapeutic INR today. Repeat INR in the a.m. with mild Coumadin adjustment today (19) Renal insufficiency SNOMED Code(s): 560105759, 523790084 Code(s): N28.9 - DISORDER OF KIDNEY AND URETER, UNSPECIFIED Status: Chronic Priority: Medium Current Visit: No Annotation/Comment:: Stable by history with normal creatinine today - Problem List Review Problem List Initiated/Reviewed/Updated: Yes - My Orders Last 24 Hours: My Active Orders 10/01/16 17:29 Acetaminophen/HYDROcodone [[place] 325-5 MG] 1 tab PO Q4H PRN 10/02/16 08:00 methylPREDNISolone Sod Succ [Solu-MEDROL] 40 mg IVPUSH DAILY 10/02/16 20:00 Famotidine [Pepcid] 20 mg IVPUSH BEDTIME - Plan Plan:: 10/01/16 Yehuda Quintana MD Still not feeling good. Hurts all over especially hands. Edema hands and ankles. Blood pressure improved today.
[2016-10-02] MEDS: Losartan 50 MG Tab PO SCH (07:29)
[2016-10-02] MEDS: Levothyroxine 50 MCG Tab PO SCH (07:29)
[2016-10-02] MEDS: Metoprolol Tartrate 25 MG Tab PO SCH ×2 (07:29→20:18)
[2016-10-02] MEDS ORDERED: methylPREDNISolone Sodium Succinate 40 MG/1 ML SDV IVPUSH SCH (08:00)
[2016-10-02] MEDS ORDERED: Furosemide 40 MG/4 ML VIAL IVPUSH ONE (14:00)
[2016-10-02] MEDS: Acetaminophen 325 MG Tab PO PRN (14:04)
[2016-10-02] MEDS ORDERED: Celecoxib 100 MG Cap PO SCH (18:00)
[2016-10-02] MEDS: Doxazosin 2 MG Tab PO SCH (20:18)
[2016-10-02] MEDS: KETOTIFEN FUMARATE EYEBOTH SCH (20:21)
[2016-10-02] MEDS: Isosorbide Mononitrate 60 MG Tab.ER PO SCH (20:21)
[2016-10-02] MEDS: Famotidine 20 MG/2 ML SDV IVPUSH SCH (20:22)
[2016-10-03] MEDS: LORazepam 0.5 MG Tab PO PRN (00:45)
--- NOTE | 2016-10-03 00:52 | PCM.PN ---
- General Info Date of Service: 10/02/16 Functional Status: Reports: pain controlled, tolerating diet - Review of Systems General: Reports: Other (feeling flushed) HEENT: Reports: headaches Pulmonary: Reports: no symptoms Cardiovascular: Reports: No Symptoms Gastrointestinal: Reports: No symptoms Genitourinary: Reports: no symptoms Musculoskeletal: Reports: hand pain Skin: Reports: no symptoms Neurological: Reports: Weakness Psychiatric: Reports: no symptoms - Patient Data Vitals - most recent: Last Vital Signs Temp 98.1 F 10/02/16 20:10 Pulse 82 10/02/16 20:18 Resp 18 10/02/16 20:10 BP 160/72 H 10/02/16 20:18 Pulse Ox 98 10/02/16 20:10 Weight - most recent: 170 lb 12.8 oz I&O - last 24 hours: Intake & Output 10/02/16 10/02/16 10/03/16 14:59 22:59 06:59 Intake Total 1140 Output Total 1500 Balance -360 Chet Results last 24 hrs: Microbiology 10/02/16 09:00 Stool Occult Blood (CHET) - Final Stool / Feces NEGATIVE OCCULT BLOOD Med Orders - Current: Current Medications Acetaminophen (Tylenol) 650 mg PO Q4H PRN PRN Reason: Fever Last Admin: 10/02/16 14:04 Dose: 650 mg Hydrocodone Bitart/Acetaminophen ([place] 325-5 Mg) 1 tab PO Q4H PRN PRN Reason: Pain Coenzyme Q10 (Coenzyme Q10) 100 mg PO BEDTIME [facility] Last Admin: 10/02/16 20:18 Dose: 100 mg Docusate Sodium (Colace) 200 mg PO BID PRN PRN Reason: Constipation Doxazosin Mesylate (Cardura) 2 mg PO Q12HR [facility] Last Admin: 10/02/16 20:18 Dose: 2 mg Famotidine (Pepcid) 20 mg IVPUSH BEDTIME [facility] Last Admin: 10/02/16 20:22 Dose: 20 mg Furosemide (Lasix) 40 mg IVPUSH DAILY [facility] Isosorbide Mononitrate (Imdur) 60 mg PO BEDTIME [facility] Last Admin: 10/02/16 20:21 Dose: 60 mg Levothyroxine Sodium (Synthroid) 50 mcg PO ACBREAKFAST [facility] Last Admin: 10/02/16 07:29 Dose: 50 mcg Lorazepam (Ativan) 0.5 mg PO BEDTIME PRN PRN Reason: restlessness Last Admin: 10/03/16 00:45 Dose: 0.5 mg Losartan Potassium (Cozaar) 50 mg PO DAILY [facility] Methyl Salicylate (Icy Hot Cream) 0 gm TOP ASDIRECTED PRN PRN Reason: Other Last Admin: 10/01/16 19:29 Dose: 1 applic Metoprolol Tartrate (Lopressor) 12.5 mg PO Q12HR [facility] Last Admin: 10/02/16 20:18 Dose: 12.5 mg Non-Formulary Medication (Ketotifen Fumarate [Zaditor]) 1 drop EYEBOTH BEDTIME [facility] Last Admin: 10/02/16 20:21 Dose: Not Given Sodium Chloride (Saline Flush) 10 ml FLUSH ASDIRECTED PRN PRN Reason: Keep Vein Open Last Admin: 10/01/16 08:30 Dose: 10 ml Warfarin Sodium (Coumadin) 2 mg PO SUWE@1800 [facility] Last Admin: 10/01/16 17:54 Dose: 2 mg Warfarin Sodium (Coumadin) 1 mg PO MoTuThFrSa@1800 [facility] Last Admin: 10/02/16 17:29 Dose: 1 mg Discontinued Medications Acetaminophen (Tylenol) 650 mg PO Q4HR PRN PRN Reason: Pain/Fever Celecoxib (Celebrex) 100 mg PO BID [facility] Last Admin: 10/02/16 17:29 Dose: 100 mg Famotidine (Pepcid) 40 mg IVPUSH ONETIME ONE Stop: 09/30/16 23:08 Last Admin: 09/30/16 23:16 Dose: 40 mg Famotidine (Pepcid) 20 mg IVPUSH BID@0800,2000 [facility] Last Admin: 10/01/16 21:57 Dose: 20 mg Furosemide (Lasix) 40 mg IVPUSH Q8H [facility] Last Admin: 10/01/16 08:30 Dose: 40 mg Furosemide (Lasix) 40 mg IVPUSH ONETIME ONE Stop: 10/02/16 14:01 Last Admin: 10/02/16 14:05 Dose: 40 mg Hydralazine HCl (Apresoline) 10 mg IVPUSH ONETIME ONE Stop: 09/30/16 23:38 Last Admin: 09/30/16 23:44 Dose: 10 mg Labetalol HCl (Normodyne) 10 mg IVPUSH ONETIME ONE PRN Reason: Protocol Stop: 09/30/16 23:12 Last Admin: 09/30/16 23:15 Dose: 10 mg Losartan Potassium (Cozaar) 25 mg PO DAILY [facility] Last Admin: 10/02/16 07:29 Dose: 25 mg Methylprednisolone Sodium Succinate (Solu-Medrol) 40 mg IVPUSH ONETIME ONE Stop: 10/01/16 18:01 Last Admin: 10/01/16 17:52 Dose: 40 mg Methylprednisolone Sodium Succinate (Solu-Medrol) 40 mg IVPUSH DAILY [facility] Last Admin: 10/02/16 07:30 Dose: 40 mg Ondansetron HCl (Zofran) 4 mg IVPUSH ONETIME ONE Stop: 10/01/16 01:34 Last Admin: 10/01/16 02:01 Dose: 4 mg Potassium Chloride (Klor-Con M20) 20 meq PO TIDMEALS [facility] Last Admin: 10/01/16 11:48 Dose: 20 meq Sodium Chloride (Saline Flush) 10 ml FLUSH Q12HR PRN PRN Reason: Keep Vein Open Last Admin: 10/02/16 07:31 Dose: 10 ml Warfarin Sodium (Coumadin) 1 mg PO MoTuThFrSa [facility] Last Admin: 10/01/16 14:50 Dose: Not Given Warfarin Sodium (Coumadin) 1 mg PO NOW ONE Stop: 10/01/16 01:16 Last Admin: 10/01/16 02:01 Dose: 1 mg - Exam General: alert, cooperative, no acute distress HEENT: Mucous membr. moist/pink Neck: trachea midline, no JVD Lungs: Normal respiratory effort, Decreased breath sounds Cardiovascular: Irregular Rhythm Abdomen: bowel sounds present, soft, no tenderness, no distension (Female) Exam: Deferred Back Exam: Normal Inspection Extremities: no calf tenderness, edema (decreased) Skin: warm, dry, intact Neurological: no new focal deficit Psy/Mental Status: alert, normal affect, normal mood - Problem List & Annotations (1) CHF (congestive heart failure) SNOMED Code(s): 99291473 Code(s): I50.9 - HEART FAILURE, UNSPECIFIED Status: Acute Priority: High Current Visit: Yes Onset Date: 10/01/16 Qualifiers: Congestive heart failure type: combined Congestive heart failure chronicity : acute on chronic Qualified Code(s): I50.43 - Acute on chronic combined systolic (congestive) and diastolic (congestive) heart failure Annotation/Comment:: Initiate aggressive IV Lasix therapy with caution secondary to her previous history of renal insufficiency (2) COPD (chronic obstructive pulmonary disease) SNOMED Code(s): 82351369 Code(s): J44.9 - CHRONIC OBSTRUCTIVE PULMONARY DISEASE, UNSPECIFIED Status : Acute Current Visit: Yes (3) HTN (hypertension) SNOMED Code(s): 02071511 Code(s): I10 - ESSENTIAL (PRIMARY) HYPERTENSION Status: Acute Priority: High Current Visit: Yes Qualifiers: Hypertension type: essential hypertension Annotation/Comment:: Hypertensive crisis prior to admission. Overall good response to IV labetalol and hydralazine. Note progressive CHF with change to IV Lasix therapy. Continue medication adjustment during this hospitalization. No chest pain or anginal complaints. Cardiac enzymes are normal with exception of moderate BNP elevation and secondary change to troponin I, which is still normal. Resolution of her previous borderline mild lateral wall cardiac ischemia by previous EKG. Repeat EKG and cardiac enzymes in the a.m. Chest pain protocol was not initiated in the emergency room secondary to absence of anginal complaints. (4) Hypothyroidism SNOMED Code(s): 59074900 Code(s): E03.9 - HYPOTHYROIDISM, UNSPECIFIED Status: Acute Current Visit : Yes (5) Iron deficiency anemia SNOMED Code(s): 37936179 Code(s): D50.9 - IRON DEFICIENCY ANEMIA, UNSPECIFIED Status: Acute Current Visit: Yes (6) Osteoarthritis SNOMED Code(s): 517095894 Code(s): M19.90 - UNSPECIFIED OSTEOARTHRITIS, UNSPECIFIED SITE Status: Acute Current Visit: Yes (7) PVC's (premature ventricular contractions) SNOMED Code(s): 74139056 Code(s): I49.3 - VENTRICULAR PREMATURE DEPOLARIZATION Status: Acute Current Visit: Yes (8) Peptic reflux disease SNOMED Code(s): 77975261 Code(s): K21.9 - GASTRO-ESOPHAGEAL REFLUX DISEASE WITHOUT ESOPHAGITIS Status: Acute Current Visit: Yes (9) Pulmonary emboli SNOMED Code(s): 03543202, 74693452 Code(s): I26.99 - OTHER PULMONARY EMBOLISM WITHOUT ACUTE COR PULMONALE Status: Acute Priority: High Current Visit: Yes (10) Anemia SNOMED Code(s): 251680121 Code(s): D64.9 - ANEMIA, UNSPECIFIED Status: Chronic Priority: Medium Current Visit: Yes Annotation/Comment:: Continue on the iron, iron does not seem to be contributing to patient's nausea. (11) COPD (chronic obstructive pulmonary disease) SNOMED Code(s): 98573864 Code(s): J44.9 - CHRONIC OBSTRUCTIVE PULMONARY DISEASE, UNSPECIFIED Status : Chronic Priority: Medium Current Visit: Yes Qualifiers: COPD type: emphysema Emphysema type: panlobular Qualified Code(s): J43.1 - Panlobular emphysema Annotation/Comment:: No recent fever her bronchitic-type symptoms. Note additional history of sleep apnea with patient to use her own machine during this hospitalization (12) Hypothyroidism SNOMED Code(s): 67426545 Code(s): E03.9 - HYPOTHYROIDISM, UNSPECIFIED Status: Chronic Priority: Medium Current Visit: Yes Annotation/Comment:: Currently under therapy. TSH normal today (13) Iron deficiency anemia SNOMED Code(s): 93393271 Code(s): D50.9 - IRON DEFICIENCY ANEMIA, UNSPECIFIED Status: Chronic Priority: Medium Current Visit: Yes Qualifiers: Iron deficiency anemia type: unspecified iron deficiency Qualified Code(s) : D50.9 - Iron deficiency anemia, unspecified Annotation/Comment:: Mild anemia although stable from previous hospitalizations. No evidence of acute GI bleed. Repeat blood work in the a.m. (14) Mixed anxiety depressive disorder SNOMED Code(s): 113609088 Code(s): F41.8 - OTHER SPECIFIED ANXIETY DISORDERS Status: Chronic Current Visit: Yes Annotation/Comment:: Stable by patient history with continued close observation by her regular provider (15) Osteoarthritis SNOMED Code(s): 379620579 Code(s): M19.90 - UNSPECIFIED OSTEOARTHRITIS, UNSPECIFIED SITE Status: Chronic Priority: Medium Current Visit: Yes Annotation/Comment:: Recently under moderate control by patient history with additional history of rheumatoid arthritis, gout, and fibromyalgia. She is on chronic narcotic medication with steroid injection received in [facility] yesterday by her history. Further medication adjustments by her regular providers depending on her clinical course (16) Comfort measures only status SNOMED Code(s): 96462913262240 Code(s): Z51.5 - ENCOUNTER FOR PALLIATIVE CARE Status: Acute Priority: Medium Current Visit: No (17) History of hip replacement SNOMED Code(s): 571464595 Code(s): Z96.649 - PRESENCE OF UNSPECIFIED ARTIFICIAL HIP JOINT Status: Acute Priority: High Current Visit: No Qualifiers: Laterality: left Qualified Code(s): Z96.642 - Presence of left artificial hip joint (18) DVT (deep venous thrombosis) SNOMED Code(s): 408161623 Code(s): I82.409 - ACUTE EMBOLISM AND THOMBOS UNSP DEEP VN UNSP LOWER EXTREMITY Status: Chronic Priority: High Current Visit: No Onset Date: 07/27/15 Qualifiers: DVT location: lower extremity Affected thrombotic vein of extremity: femoral Laterality: left Chronicity: unspecified Qualified Code(s): I82.412 - Acute embolism and thrombosis of left femoral vein Annotation/Comment:: History of DVT and PE as above with mildly subtherapeutic INR today. Repeat INR in the a.m. with mild Coumadin adjustment today (19) Renal insufficiency SNOMED Code(s): 838840492, 327125800 Code(s): N28.9 - DISORDER OF KIDNEY AND URETER, UNSPECIFIED Status: Chronic Priority: Medium Current Visit: No Annotation/Comment:: Stable by history with normal creatinine today - Problem List Review Problem List Initiated/Reviewed/Updated: Yes - My Orders Last 24 Hours: My Active Orders 10/02/16 16:30 CATECH FRACTIONATED URINE 24HR Routine METANEPH FRACTIONATED UR 24HR Routine 10/02/16 20:00 Doxazosin [Cardura] 2 mg PO Q12HR Famotidine [Pepcid] 20 mg IVPUSH BEDTIME 10/03/16 05:11 CBC WITH AUTO DIFF [HEME] DAILY CMP [COMPREHENSIVE METABOLIC PN,CMP] [CHEM] DAILY CRP [C-REACTIVE PROTEIN] [CHEM] DAILY INR,PT,PROTHROMBIN TIME [COAG] DAILY PTT,PARTIAL THROMBOPLSTIN TIME [COAG] Routine SEDIMENTATION RATE MANUAL [HEME] Routine 10/03/16 08:00 Furosemide [Lasix] 40 mg IVPUSH DAILY Losartan [Cozaar] 50 mg PO DAILY Sodium Chloride 0.9% [Saline Flush] 10 ml FLUSH Q12HR methylPREDNISolone Sod Succ [Solu-MEDROL] 20 mg IVPUSH ONETIME ONE 10/04/16 05:11 CBC WITH AUTO DIFF [HEME] DAILY CMP [COMPREHENSIVE METABOLIC PN,CMP] [CHEM] DAILY CRP [C-REACTIVE PROTEIN] [CHEM] DAILY INR,PT,PROTHROMBIN TIME [COAG] DAILY 10/05/16 05:11 CBC WITH AUTO DIFF [HEME] DAILY CMP [COMPREHENSIVE METABOLIC PN,CMP] [CHEM] DAILY CRP [C-REACTIVE PROTEIN] [CHEM] DAILY INR,PT,PROTHROMBIN TIME [COAG] DAILY - Plan Plan:: 10/01/16 Yehuda Quintana MD Still not feeling good. Hurts all over especially hands. Edema hands and ankles. Blood pressure improved today. 10/02/16 (late entry) Yehuda Quintana MD Feeling better this AM now feeling flushed and not good. Pain in hands is better. Blood pressure still labile up and down.
[2016-10-03 07:31] LABS: CHLORIDE,CL 100 mmol/L (98-107); SODIUM,NA 134 mmol/L (136-145)
[2016-10-03] MEDS: Furosemide 40 MG/4 ML VIAL IVPUSH SCH (07:55)
[2016-10-03] MEDS: Doxazosin 2 MG Tab PO SCH ×2 (07:56→20:04)
[2016-10-03] MEDS: Losartan 50 MG Tab PO SCH (07:58)
[2016-10-03] MEDS: Metoprolol Tartrate 25 MG Tab PO SCH ×2 (07:58→20:08)
[2016-10-03] MEDS: Levothyroxine 50 MCG Tab PO SCH (07:58)
[2016-10-03] MEDS: Sodium Chloride 0.9% 10 ML Syringe FLUSH SCH ×2 (08:00→20:10)
[2016-10-03] MEDS ORDERED: methylPREDNISolone Sodium Succinate 40 MG/1 ML SDV IVPUSH ONE (08:00)
--- NOTE | 2016-10-03 14:49 | PCM.PN ---
- General Info Date of Service: 10/03/16 Functional Status: Reports: other (some pain today, mind a little bit fuzzy) - Review of Systems General: Reports: No Symptoms HEENT: Reports: no symptoms Pulmonary: Reports: no symptoms Cardiovascular: Reports: No Symptoms Gastrointestinal: Reports: No symptoms Genitourinary: Reports: no symptoms Musculoskeletal: Reports: no symptoms Skin: Reports: no symptoms Neurological: Reports: No Symptoms Psychiatric: Reports: no symptoms - Patient Data Vitals - most recent: Last Vital Signs Temp 97.4 F 10/03/16 12:00 Pulse 81 10/03/16 12:00 Resp 16 10/03/16 12:00 BP 150/62 H 10/03/16 12:00 Pulse Ox 100 10/03/16 12:00 Weight - most recent: 375 lb 0.101 oz I&O - last 24 hours: Intake & Output 10/02/16 10/03/16 10/03/16 22:59 06:59 14:59 Intake Total 1140 100 Output Total 1500 300 Balance -360 -200 Lab Results last 24 hrs: Laboratory Results - last 24 hr 10/03/16 10/03/16 10/03/16 Range/Units 07:00 07:00 07:00 WBC 6.7 (4.0-10.2) K/uL RBC 3.57 L (3.77-5.09) M/uL Hgb 9.8 L (11.7-15.5) g/dL Hct 30.2 L (34.0-46.0) % MCV 84.6 (84.0-98.0) fL MCH 27.5 L (28.2-33.3) pg MCHC 32.5 (31.7-36.0) g/dL RDW 15.2 H (11.2-14.1) % Plt Count 226 (150-350) K/uL Neut % (Auto) 62.6 (45.0-80.0) % Lymph % (Auto) 25.9 (10.0-50.0) % [place] % (Auto) 10.3 (2.0-14.0) % Eos % (Auto) 0.6 (0.0-5.0) % Baso % (Auto) 0.6 (0.0-2.0) % Neut # (Auto) 4.19 (1.40-7.00) K/uL Lymph # (Auto) 1.73 (0.50-3.50) K/uL [place] # (Auto) 0.69 (0.00-1.00) K/uL Eos # (Auto) 0.04 (0.00-0.50) K/uL Baso # (Auto) 0.04 (0.00-0.20) K/uL ESR 18 (0-42) mm/hr PT 24.9 H (9.8-11.7) SEC INR 2.2 APTT 35.1 H (23.5-30.0) SEC Sodium 134 L (136-145) mmol/L Potassium 4.3 (3.5-5.1) mmol/L Chloride 100 (98-107) mmol/L Carbon Dioxide 29.1 (21.0-32.0) mmol/L BUN 34 H (7-18) mg/dL Creatinine 1.06 (0.51-1.17) mg/dL Est Cr Clr Drug Dosing 32.52 mL/min Estimated GFR (MDRD) 49 mL/min Glucose 97 (74-106) mg/dL Calcium 8.2 L (8.5-10.1) mg/dL Total Bilirubin 0.3 (0.2-1.0) mg/dL AST 21 (15-37) U/L ALT 21 (12-78) U/L Alkaline Phosphatase 59 (46-116) IU/L C-Reactive Protein < 0.1 (<=0.9) mg/dL Total Protein 6.2 L (6.4-8.2) g/dL Albumin 3.2 L (3.4-5.0) g/dL Med Orders - Current: Current Medications Acetaminophen (Tylenol) 650 mg PO Q4H PRN PRN Reason: Fever Last Admin: 10/02/16 14:04 Dose: 650 mg Hydrocodone Bitart/Acetaminophen ([place] 325-5 Mg) 1 tab PO Q4H PRN PRN Reason: Pain Coenzyme Q10 (Coenzyme Q10) 100 mg PO BEDTIME NIKITA Last Admin: 10/02/16 20:18 Dose: 100 mg Docusate Sodium (Colace) 200 mg PO BID PRN PRN Reason: Constipation Doxazosin Mesylate (Cardura) 4 mg PO Q12HR [facility] Famotidine (Pepcid) 20 mg IVPUSH BEDTIME [facility] Last Admin: 10/02/16 20:22 Dose: 20 mg Furosemide (Lasix) 40 mg IVPUSH DAILY [facility] Last Admin: 10/03/16 07:55 Dose: 40 mg Isosorbide Mononitrate (Imdur) 60 mg PO BEDTIME [facility] Last Admin: 10/02/16 20:21 Dose: 60 mg Levothyroxine Sodium (Synthroid) 50 mcg PO ACBREAKFAST [facility] Last Admin: 10/03/16 07:58 Dose: 50 mcg Lorazepam (Ativan) 0.5 mg PO BEDTIME PRN PRN Reason: restlessness Last Admin: 10/03/16 00:45 Dose: 0.5 mg Losartan Potassium (Cozaar) 50 mg PO DAILY [facility] Last Admin: 10/03/16 07:58 Dose: 50 mg Methyl Salicylate (Icy Hot Cream) 0 gm TOP ASDIRECTED PRN PRN Reason: Other Last Admin: 10/01/16 19:29 Dose: 1 applic Methylprednisolone Sodium Succinate (Solu-Medrol) 40 mg IVPUSH DAILY [facility] Metoprolol Tartrate (Lopressor) 12.5 mg PO Q12HR [facility] Last Admin: 10/03/16 07:58 Dose: 12.5 mg Non-Formulary Medication (Ketotifen Fumarate [Zaditor]) 1 drop EYEBOTH BEDTIME [facility] Last Admin: 10/02/16 20:21 Dose: Not Given Sodium Chloride (Saline Flush) 10 ml FLUSH ASDIRECTED PRN PRN Reason: Keep Vein Open Last Admin: 10/01/16 08:30 Dose: 10 ml Sodium Chloride (Saline Flush) 10 ml FLUSH Q12HR [facility] Last Admin: 10/03/16 08:00 Dose: 10 ml Warfarin Sodium (Coumadin) 2 mg PO SUWE@1800 [facility] Last Admin: 10/01/16 17:54 Dose: 2 mg Warfarin Sodium (Coumadin) 1 mg PO MoTuThFrSa@1800 [facility] Last Admin: 10/02/16 17:29 Dose: 1 mg Discontinued Medications Acetaminophen (Tylenol) 650 mg PO Q4HR PRN PRN Reason: Pain/Fever Celecoxib (Celebrex) 100 mg PO BID [facility] Last Admin: 10/02/16 17:29 Dose: 100 mg Doxazosin Mesylate (Cardura) 2 mg PO Q12HR [facility] Last Admin: 10/03/16 07:56 Dose: 2 mg Famotidine (Pepcid) 40 mg IVPUSH ONETIME ONE Stop: 09/30/16 23:08 Last Admin: 09/30/16 23:16 Dose: 40 mg Famotidine (Pepcid) 20 mg IVPUSH BID@0800,2000 [facility] Last Admin: 10/01/16 21:57 Dose: 20 mg Furosemide (Lasix) 40 mg IVPUSH Q8H [facility] Last Admin: 10/01/16 08:30 Dose: 40 mg Furosemide (Lasix) 40 mg IVPUSH ONETIME ONE Stop: 10/02/16 14:01 Last Admin: 10/02/16 14:05 Dose: 40 mg Hydralazine HCl (Apresoline) 10 mg IVPUSH ONETIME ONE Stop: 09/30/16 23:38 Last Admin: 09/30/16 23:44 Dose: 10 mg Labetalol HCl (Normodyne) 10 mg IVPUSH ONETIME ONE PRN Reason: Protocol Stop: 09/30/16 23:12 Last Admin: 09/30/16 23:15 Dose: 10 mg Losartan Potassium (Cozaar) 25 mg PO DAILY [facility] Last Admin: 10/02/16 07:29 Dose: 25 mg Methylprednisolone Sodium Succinate (Solu-Medrol) 40 mg IVPUSH ONETIME ONE Stop: 10/01/16 18:01 Last Admin: 10/01/16 17:52 Dose: 40 mg Methylprednisolone Sodium Succinate (Solu-Medrol) 40 mg IVPUSH DAILY [facility] Last Admin: 10/02/16 07:30 Dose: 40 mg Methylprednisolone Sodium Succinate (Solu-Medrol) 20 mg IVPUSH ONETIME ONE Stop: 10/03/16 08:01 Last Admin: 10/03/16 07:55 Dose: 20 mg Ondansetron HCl (Zofran) 4 mg IVPUSH ONETIME ONE Stop: 10/01/16 01:34 Last Admin: 10/01/16 02:01 Dose: 4 mg Potassium Chloride (Klor-Con M20) 20 meq PO TIDMEALS [facility] Last Admin: 10/01/16 11:48 Dose: 20 meq Sodium Chloride (Saline Flush) 10 ml FLUSH Q12HR PRN PRN Reason: Keep Vein Open Last Admin: 10/02/16 07:31 Dose: 10 ml Warfarin Sodium (Coumadin) 1 mg PO Hannah [facility] Last Admin: 10/01/16 14:50 Dose: Not Given Warfarin Sodium (Coumadin) 1 mg PO NOW ONE Stop: 10/01/16 01:16 Last Admin: 10/01/16 02:01 Dose: 1 mg - Exam General: alert, cooperative, mild distress HEENT: Pupils equal, Pupils reactive, EOMI, Mucous membr. moist/pink Neck: trachea midline, no JVD Lungs: Clear to auscultation, Normal respiratory effort Cardiovascular: Regular Rate, Regular Rhythm Abdomen: bowel sounds present, soft, no tenderness, no distension (Female) Exam: Deferred Back Exam: Normal Inspection, Other (kyphosis) Extremities: no edema, no calf tenderness Skin: warm, dry, intact, ecchymosis Wound/Incisions: healing well Neurological: no new focal deficit Psy/Mental Status: alert, normal affect, normal mood - Problem List & Annotations (1) CHF (congestive heart failure) SNOMED Code(s): 57780098 Code(s): I50.9 - HEART FAILURE, UNSPECIFIED Status: Acute Priority: High Current Visit: Yes Onset Date: 10/01/16 Qualifiers: Congestive heart failure type: combined Congestive heart failure chronicity : acute on chronic Qualified Code(s): I50.43 - Acute on chronic combined systolic (congestive) and diastolic (congestive) heart failure Annotation/Comment:: Initiate aggressive IV Lasix therapy with caution secondary to her previous history of renal insufficiency (2) COPD (chronic obstructive pulmonary disease) SNOMED Code(s): 21058015 Code(s): J44.9 - CHRONIC OBSTRUCTIVE PULMONARY DISEASE, UNSPECIFIED Status : Acute Current Visit: Yes (3) HTN (hypertension) SNOMED Code(s): 98997624 Code(s): I10 - ESSENTIAL (PRIMARY) HYPERTENSION Status: Acute Priority: High Current Visit: Yes Qualifiers: Hypertension type: essential hypertension Annotation/Comment:: Hypertensive crisis prior to admission. Overall good response to IV labetalol and hydralazine. Note progressive CHF with change to IV Lasix therapy. Continue medication adjustment during this hospitalization. No chest pain or anginal complaints. Cardiac enzymes are normal with exception of moderate BNP elevation and secondary change to troponin I, which is still normal. Resolution of her previous borderline mild lateral wall cardiac ischemia by previous EKG. Repeat EKG and cardiac enzymes in the a.m. Chest pain protocol was not initiated in the emergency room secondary to absence of anginal complaints. (4) Hypothyroidism SNOMED Code(s): 02195325 Code(s): E03.9 - HYPOTHYROIDISM, UNSPECIFIED Status: Acute Current Visit : Yes (5) Iron deficiency anemia SNOMED Code(s): 19820322 Code(s): D50.9 - IRON DEFICIENCY ANEMIA, UNSPECIFIED Status: Acute Current Visit: Yes (6) Osteoarthritis SNOMED Code(s): 172122652 Code(s): M19.90 - UNSPECIFIED OSTEOARTHRITIS, UNSPECIFIED SITE Status: Acute Current Visit: Yes (7) PVC's (premature ventricular contractions) SNOMED Code(s): 11644483 Code(s): I49.3 - VENTRICULAR PREMATURE DEPOLARIZATION Status: Acute Current Visit: Yes (8) Peptic reflux disease SNOMED Code(s): 08831132 Code(s): K21.9 - GASTRO-ESOPHAGEAL REFLUX DISEASE WITHOUT ESOPHAGITIS Status: Acute Current Visit: Yes (9) Pulmonary emboli SNOMED Code(s): 41844009, 48231315 Code(s): I26.99 - OTHER PULMONARY EMBOLISM WITHOUT ACUTE COR PULMONALE Status: Acute Priority: High Current Visit: Yes (10) Anemia SNOMED Code(s): 459735569 Code(s): D64.9 - ANEMIA, UNSPECIFIED Status: Chronic Priority: Medium Current Visit: Yes Annotation/Comment:: Continue on the iron, iron does not seem to be contributing to patient's nausea. (11) COPD (chronic obstructive pulmonary disease) SNOMED Code(s): 92438135 Code(s): J44.9 - CHRONIC OBSTRUCTIVE PULMONARY DISEASE, UNSPECIFIED Status : Chronic Priority: Medium Current Visit: Yes Qualifiers: COPD type: emphysema Emphysema type: panlobular Qualified Code(s): J43.1 - Panlobular emphysema Annotation/Comment:: No recent fever her bronchitic-type symptoms. Note additional history of sleep apnea with patient to use her own machine during this hospitalization (12) Hypothyroidism SNOMED Code(s): 99580714 Code(s): E03.9 - HYPOTHYROIDISM, UNSPECIFIED Status: Chronic Priority: Medium Current Visit: Yes Annotation/Comment:: Currently under therapy. TSH normal today (13) Iron deficiency anemia SNOMED Code(s): 72193777 Code(s): D50.9 - IRON DEFICIENCY ANEMIA, UNSPECIFIED Status: Chronic Priority: Medium Current Visit: Yes Qualifiers: Iron deficiency anemia type: unspecified iron deficiency Qualified Code(s) : D50.9 - Iron deficiency anemia, unspecified Annotation/Comment:: Mild anemia although stable from previous hospitalizations. No evidence of acute GI bleed. Repeat blood work in the a.m. (14) Mixed anxiety depressive disorder SNOMED Code(s): 571191632 Code(s): F41.8 - OTHER SPECIFIED ANXIETY DISORDERS Status: Chronic Current Visit: Yes Annotation/Comment:: Stable by patient history with continued close observation by her regular provider (15) Osteoarthritis SNOMED Code(s): 960417637 Code(s): M19.90 - UNSPECIFIED OSTEOARTHRITIS, UNSPECIFIED SITE Status: Chronic Priority: Medium Current Visit: Yes Annotation/Comment:: Recently under moderate control by patient history with additional history of rheumatoid arthritis, gout, and fibromyalgia. She is on chronic narcotic medication with steroid injection received in [facility] yesterday by her history. Further medication adjustments by her regular providers depending on her clinical course (16) Comfort measures only status SNOMED Code(s): 97422057142754 Code(s): Z51.5 - ENCOUNTER FOR PALLIATIVE CARE Status: Acute Priority: Medium Current Visit: No (17) History of hip replacement SNOMED Code(s): 222007001 Code(s): Z96.649 - PRESENCE OF UNSPECIFIED ARTIFICIAL HIP JOINT Status: Acute Priority: High Current Visit: No Qualifiers: Laterality: left Qualified Code(s): Z96.642 - Presence of left artificial hip joint (18) DVT (deep venous thrombosis) SNOMED Code(s): 070700830 Code(s): I82.409 - ACUTE EMBOLISM AND THOMBOS UNSP DEEP VN UNSP LOWER EXTREMITY Status: Chronic Priority: High Current Visit: No Onset Date: 07/27/15 Qualifiers: DVT location: lower extremity Affected thrombotic vein of extremity: femoral Laterality: left Chronicity: unspecified Qualified Code(s): I82.412 - Acute embolism and thrombosis of left femoral vein Annotation/Comment:: History of DVT and PE as above with mildly subtherapeutic INR today. Repeat INR in the a.m. with mild Coumadin adjustment today (19) Renal insufficiency SNOMED Code(s): 095112706, 521286268 Code(s): N28.9 - DISORDER OF KIDNEY AND URETER, UNSPECIFIED Status: Chronic Priority: Medium Current Visit: No Annotation/Comment:: Stable by history with normal creatinine today - Problem List Review Problem List Initiated/Reviewed/Updated: Yes - My Orders Last 24 Hours: My Active Orders 10/02/16 16:30 CATECH FRACTIONATED URINE 24HR Routine METANEPH FRACTIONATED UR 24HR Routine 10/02/16 20:00 Famotidine [Pepcid] 20 mg IVPUSH BEDTIME 10/03/16 08:00 Furosemide [Lasix] 40 mg IVPUSH DAILY Losartan [Cozaar] 50 mg PO DAILY Sodium Chloride 0.9% [Saline Flush] 10 ml FLUSH Q12HR 10/03/16 20:00 Doxazosin [Cardura] 4 mg PO Q12HR 10/04/16 05:11 CBC WITH AUTO DIFF [HEME] DAILY CMP [COMPREHENSIVE METABOLIC PN,CMP] [CHEM] DAILY CRP [C-REACTIVE PROTEIN] [CHEM] DAILY INR,PT,PROTHROMBIN TIME [COAG] DAILY 10/04/16 08:00 methylPREDNISolone Sod Succ [Solu-MEDROL] 40 mg IVPUSH DAILY 10/05/16 05:11 CBC WITH AUTO DIFF [HEME] DAILY CMP [COMPREHENSIVE METABOLIC PN,CMP] [CHEM] DAILY CRP [C-REACTIVE PROTEIN] [CHEM] DAILY INR,PT,PROTHROMBIN TIME [COAG] DAILY - Plan Plan:: 10/01/16 Yehuda Quintana MD Still not feeling good. Hurts all over especially hands. Edema hands and ankles. Blood pressure improved today. 10/02/16 (late entry) Yehuda Quintana MD Feeling better this AM now feeling flushed and not good. Pain in hands is better. Blood pressure still labile up and down. 10/03/16 Yehuda Quintana MD Not feeling as well today. Some pain. Brain a little fuzzy. Couldn't sleep well last night. Blood Pressure better range.
[2016-10-03] MEDS: Isosorbide Mononitrate 60 MG Tab.ER PO SCH (20:08)
[2016-10-03] MEDS: Famotidine 20 MG/2 ML SDV IVPUSH SCH (20:08)
[2016-10-03] MEDS: KETOTIFEN FUMARATE EYEBOTH SCH (20:16)
[2016-10-04 07:55] LABS: CHLORIDE,CL 100 mmol/L (98-107); SODIUM,NA 135 mmol/L (136-145)
[2016-10-04] MEDS: Furosemide 40 MG/4 ML VIAL IVPUSH SCH (07:59)
[2016-10-04] MEDS: methylPREDNISolone Sodium Succinate 40 MG/1 ML SDV IVPUSH SCH (07:59)
[2016-10-04] MEDS: Metoprolol Tartrate 25 MG Tab PO SCH ×2 (08:00→21:12)
[2016-10-04] MEDS: Levothyroxine 50 MCG Tab PO SCH (08:00)
[2016-10-04] MEDS: Doxazosin 2 MG Tab PO SCH ×2 (08:01→21:11)
[2016-10-04] MEDS: Sodium Chloride 0.9% 10 ML Syringe FLUSH SCH ×2 (08:02→21:15)
[2016-10-04] MEDS: Losartan 50 MG Tab PO SCH (08:02)
--- NOTE | 2016-10-04 11:21 | PCM.PN ---
- General Info Date of Service: 10/04/16 Functional Status: Reports: pain controlled, ambulating - Review of Systems General: Reports: Other (a little "light-headed", something she says happens occasionally "for quite some time now") HEENT: Reports: headaches (sl right latter day headache this morning, better now) Pulmonary: Reports: no symptoms Cardiovascular: Reports: No Symptoms Gastrointestinal: Reports: Other (constipation has resolved, in fact says had a somewhat soft, almost loose stool this morning) Genitourinary: Reports: no symptoms Musculoskeletal: Reports: no symptoms Skin: Reports: no symptoms Neurological: Reports: Other ("a little fuzzy-headed") Psychiatric: Reports: no symptoms - Patient Data Vitals - most recent: Last Vital Signs Temp 97.6 F 10/04/16 07:58 Pulse 84 10/04/16 08:00 Resp 20 10/04/16 07:58 BP 140/72 10/04/16 08:02 Pulse Ox 97 10/04/16 07:58 Weight - most recent: 169 lb 14.4 oz I&O - last 24 hours: Intake & Output 10/03/16 10/04/16 10/04/16 22:59 06:59 14:59 Intake Total 100 Output Total 500 900 400 Balance -500 -800 -400 Lab Results last 24 hrs: Laboratory Results - last 24 hr 10/04/16 10/04/16 10/04/16 Range/Units 06:40 06:40 06:40 WBC 7.8 (4.0-10.2) K/uL RBC 3.59 L (3.77-5.09) M/uL Hgb 9.8 L (11.7-15.5) g/dL Hct 30.3 L (34.0-46.0) % MCV 84.4 (84.0-98.0) fL MCH 27.3 L (28.2-33.3) pg MCHC 32.3 (31.7-36.0) g/dL RDW 15.5 H (11.2-14.1) % Plt Count 243 (150-350) K/uL Neut % (Auto) 65.4 (45.0-80.0) % Lymph % (Auto) 24.6 (10.0-50.0) % [place] % (Auto) 9.1 (2.0-14.0) % Eos % (Auto) 0.6 (0.0-5.0) % Baso % (Auto) 0.3 (0.0-2.0) % Neut # (Auto) 5.08 (1.40-7.00) K/uL Lymph # (Auto) 1.91 (0.50-3.50) K/uL [place] # (Auto) 0.71 (0.00-1.00) K/uL Eos # (Auto) 0.05 (0.00-0.50) K/uL Baso # (Auto) 0.02 (0.00-0.20) K/uL PT 19.5 H (9.8-11.7) SEC INR 1.8 Sodium 135 L (136-145) mmol/L Potassium 4.4 (3.5-5.1) mmol/L Chloride 100 (98-107) mmol/L Carbon Dioxide 27.9 (21.0-32.0) mmol/L BUN 38 H (7-18) mg/dL Creatinine 1.03 (0.51-1.17) mg/dL Est Cr Clr Drug Dosing 33.47 mL/min Estimated GFR (MDRD) 51 mL/min Glucose 96 (74-106) mg/dL Calcium 8.1 L (8.5-10.1) mg/dL Total Bilirubin 0.4 (0.2-1.0) mg/dL AST 20 (15-37) U/L ALT 22 (12-78) U/L Alkaline Phosphatase 56 (46-116) IU/L C-Reactive Protein < 0.1 (<=0.9) mg/dL Total Protein 6.1 L (6.4-8.2) g/dL Albumin 3.1 L (3.4-5.0) g/dL Med Orders - Current: Current Medications Acetaminophen (Tylenol) 650 mg PO Q4H PRN PRN Reason: Fever Last Admin: 10/02/16 14:04 Dose: 650 mg Hydrocodone Bitart/Acetaminophen ([place] 325-5 Mg) 1 tab PO Q4H PRN PRN Reason: Pain Coenzyme Q10 (Coenzyme Q10) 100 mg PO BEDTIME NIKITA Last Admin: 10/03/16 20:08 Dose: 100 mg Docusate Sodium (Colace) 200 mg PO BID PRN PRN Reason: Constipation Doxazosin Mesylate (Cardura) 4 mg PO Q12HR [facility] Last Admin: 10/04/16 08:01 Dose: 4 mg Famotidine (Pepcid) 20 mg IVPUSH BEDTIME [facility] Last Admin: 10/03/16 20:08 Dose: 20 mg Furosemide (Lasix) 40 mg IVPUSH DAILY [facility] Last Admin: 10/04/16 07:59 Dose: 40 mg Isosorbide Mononitrate (Imdur) 60 mg PO BEDTIME [facility] Last Admin: 10/03/16 20:08 Dose: 60 mg Levothyroxine Sodium (Synthroid) 50 mcg PO ACBREAKFAST [facility] Last Admin: 10/04/16 08:00 Dose: 50 mcg Lorazepam (Ativan) 0.5 mg PO BEDTIME PRN PRN Reason: restlessness Last Admin: 10/03/16 00:45 Dose: 0.5 mg Losartan Potassium (Cozaar) 50 mg PO DAILY [facility] Last Admin: 10/04/16 08:02 Dose: 50 mg Methyl Salicylate (Icy Hot Cream) 0 gm TOP ASDIRECTED PRN PRN Reason: Other Last Admin: 10/01/16 19:29 Dose: 1 applic Methylprednisolone Sodium Succinate (Solu-Medrol) 40 mg IVPUSH DAILY [facility] Last Admin: 10/04/16 07:59 Dose: 40 mg Metoprolol Tartrate (Lopressor) 12.5 mg PO Q12HR [facility] Last Admin: 10/04/16 08:00 Dose: 12.5 mg Non-Formulary Medication (Ketotifen Fumarate [Zaditor]) 1 drop EYEBOTH BEDTIME [facility] Last Admin: 10/03/16 20:16 Dose: Not Given Sodium Chloride (Saline Flush) 10 ml FLUSH ASDIRECTED PRN PRN Reason: Keep Vein Open Last Admin: 10/01/16 08:30 Dose: 10 ml Sodium Chloride (Saline Flush) 10 ml FLUSH Q12HR [facility] Last Admin: 10/04/16 08:02 Dose: 10 ml Warfarin Sodium (Coumadin) 2 mg PO SUWE@1800 [facility] Last Admin: 10/01/16 17:54 Dose: 2 mg Warfarin Sodium (Coumadin) 1 mg PO MoTuThFrSa@1800 [facility] Last Admin: 10/03/16 17:32 Dose: 1 mg Discontinued Medications Acetaminophen (Tylenol) 650 mg PO Q4HR PRN PRN Reason: Pain/Fever Celecoxib (Celebrex) 100 mg PO BID [facility] Last Admin: 10/02/16 17:29 Dose: 100 mg Doxazosin Mesylate (Cardura) 2 mg PO Q12HR [facility] Last Admin: 10/03/16 07:56 Dose: 2 mg Famotidine (Pepcid) 40 mg IVPUSH ONETIME ONE Stop: 09/30/16 23:08 Last Admin: 09/30/16 23:16 Dose: 40 mg Famotidine (Pepcid) 20 mg IVPUSH BID@0800,1999 [facility] Last Admin: 10/01/16 21:57 Dose: 20 mg Furosemide (Lasix) 40 mg IVPUSH Q8H [facility] Last Admin: 10/01/16 08:30 Dose: 40 mg Furosemide (Lasix) 40 mg IVPUSH ONETIME ONE Stop: 10/02/16 14:01 Last Admin: 10/02/16 14:05 Dose: 40 mg Hydralazine HCl (Apresoline) 10 mg IVPUSH ONETIME ONE Stop: 09/30/16 23:38 Last Admin: 09/30/16 23:44 Dose: 10 mg Labetalol HCl (Normodyne) 10 mg IVPUSH ONETIME ONE PRN Reason: Protocol Stop: 09/30/16 23:12 Last Admin: 09/30/16 23:15 Dose: 10 mg Losartan Potassium (Cozaar) 25 mg PO DAILY [facility] Last Admin: 10/02/16 07:29 Dose: 25 mg Methylprednisolone Sodium Succinate (Solu-Medrol) 40 mg IVPUSH ONETIME ONE Stop: 10/01/16 18:01 Last Admin: 10/01/16 17:52 Dose: 40 mg Methylprednisolone Sodium Succinate (Solu-Medrol) 40 mg IVPUSH DAILY [facility] Last Admin: 10/02/16 07:30 Dose: 40 mg Methylprednisolone Sodium Succinate (Solu-Medrol) 20 mg IVPUSH ONETIME ONE Stop: 10/03/16 08:01 Last Admin: 10/03/16 07:55 Dose: 20 mg Ondansetron HCl (Zofran) 4 mg IVPUSH ONETIME ONE Stop: 10/01/16 01:34 Last Admin: 10/01/16 02:01 Dose: 4 mg Potassium Chloride (Klor-Con M20) 20 meq PO TIDMEALS [facility] Last Admin: 10/01/16 11:48 Dose: 20 meq Sodium Chloride (Saline Flush) 10 ml FLUSH Q12HR PRN PRN Reason: Keep Vein Open Last Admin: 10/02/16 07:31 Dose: 10 ml Warfarin Sodium (Coumadin) 1 mg PO MoTuThFrSa [facility] Last Admin: 10/01/16 14:50 Dose: Not Given Warfarin Sodium (Coumadin) 1 mg PO NOW ONE Stop: 10/01/16 01:16 Last Admin: 10/01/16 02:01 Dose: 1 mg - Exam General: alert, oriented HEENT: EOMI, Mucous membr. moist/pink Neck: supple, trachea midline, no JVD Lungs: Clear to auscultation, Normal respiratory effort Cardiovascular: Regular Rate, Regular Rhythm (occasional ectopic beat, PVC's on EKG) Abdomen: bowel sounds present, soft, no tenderness, no distension (Female) Exam: Deferred Back Exam: Normal Inspection (normal for patient, kyphotic) Extremities: no edema Skin: warm, dry, intact Neurological: no new focal deficit Psy/Mental Status: alert, normal affect, normal mood - Problem List Review Problem List Initiated/Reviewed/Updated: Yes - Plan Plan:: 10/01/16 Yehuda Quintana MD Still not feeling good. Hurts all over especially hands. Edema hands and ankles. Blood pressure improved today. 10/02/16 (late entry) Yehuda Quintana MD Feeling better this AM now feeling flushed and not good. Pain in hands is better. Blood pressure still labile up and down. 10/03/16 Yehuda Quintana MD Not feeling as well today. Some pain. Brain a little fuzzy. Couldn't sleep well last night. Blood Pressure better range. 10-04-16 Beth Vivas PA-C Up ambulating in hallway. 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 Denies CP or SOB, but says she is still a little light-headed or fuzzy - initially says that this has been something that has happened occasionally at home in the past, then says that it seems "different" now and feels as though her vision is fuzzy. Denies visual pain. Had her eyes professionally checked fairly recently. Did have a dull right sided headache this morning, seems better. Also concerned because after a regular BM this morning had a soft, almost loose stool. Denies abdominal pain. BP stabilizing with current med regimen, probable discharge to home in am. Will monitor for 24 more hours. 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
[2016-10-04] MEDS: Isosorbide Mononitrate 60 MG Tab.ER PO SCH (21:13)
[2016-10-04] MEDS: KETOTIFEN FUMARATE EYEBOTH SCH (21:15)
[2016-10-04] MEDS: Famotidine 20 MG/2 ML SDV IVPUSH SCH (21:16)
[2016-10-04] MEDS: LORazepam 0.5 MG Tab PO PRN (22:33)
[2016-10-05] MEDS: Losartan 50 MG Tab PO SCH (07:12)
[2016-10-05] MEDS: Metoprolol Tartrate 25 MG Tab PO SCH (07:13)
[2016-10-05] MEDS: Levothyroxine 50 MCG Tab PO SCH (07:13)
[2016-10-05 07:14] VITALS: BP 164/74
[2016-10-05] MEDS: Furosemide 40 MG/4 ML VIAL IVPUSH SCH (07:14)
[2016-10-05] MEDS: Doxazosin 2 MG Tab PO SCH (07:14)
[2016-10-05] MEDS: methylPREDNISolone Sodium Succinate 40 MG/1 ML SDV IVPUSH SCH (07:15)
[2016-10-05 07:35] LABS: CHLORIDE,CL 99 mmol/L (98-107); SODIUM,NA 135 mmol/L (136-145)
--- NOTE | 2016-10-05 11:45 | PCM.PN ---
- General Info Date of Service: 10/05/16 Admission Dx/Problem (Free Text): HTN uncontrolled CHF COPD Functional Status: Reports: pain controlled, ambulating - Review of Systems General: Reports: No Symptoms (wants to go home!) HEENT: Reports: no symptoms Pulmonary: Reports: no symptoms Cardiovascular: Reports: No Symptoms Gastrointestinal: Reports: No symptoms Genitourinary: Reports: no symptoms Musculoskeletal: Reports: other (only minimal pain to R MCP joint, says still can hardly believe the terrible chronic pain is gone) Skin: Reports: no symptoms Neurological: Reports: No Symptoms Psychiatric: Reports: no symptoms - Patient Data Vitals - most recent: Last Vital Signs Temp 99 F 10/04/16 20:00 Pulse 84 10/05/16 07:13 Resp 20 10/04/16 20:00 BP 164/74 H 10/05/16 07:14 Pulse Ox 98 10/04/16 20:00 Weight - most recent: 168 lb 6.4 oz I&O - last 24 hours: Intake & Output 10/04/16 10/05/16 10/05/16 22:59 06:59 14:59 Intake Total 200 700 Output Total 950 Balance -750 700 Lab Results last 24 hrs: Laboratory Results - last 24 hr 10/05/16 10/05/16 10/05/16 Range/Units 07:00 07:00 07:00 WBC 8.0 (4.0-10.2) K/uL RBC 3.62 L (3.77-5.09) M/uL Hgb 9.7 L (11.7-15.5) g/dL Hct 30.4 L (34.0-46.0) % MCV 84.0 (84.0-98.0) fL MCH 26.8 L (28.2-33.3) pg MCHC 31.9 (31.7-36.0) g/dL RDW 15.3 H (11.2-14.1) % Plt Count 248 (150-350) K/uL Neut % (Auto) 67.4 (45.0-80.0) % Lymph % (Auto) 22.1 (10.0-50.0) % Reeves % (Auto) 9.6 (2.0-14.0) % Eos % (Auto) 0.4 (0.0-5.0) % Baso % (Auto) 0.5 (0.0-2.0) % Neut # (Auto) 5.38 (1.40-7.00) K/uL Lymph # (Auto) 1.76 (0.50-3.50) K/uL Reeves # (Auto) 0.77 (0.00-1.00) K/uL Eos # (Auto) 0.03 (0.00-0.50) K/uL Baso # (Auto) 0.04 (0.00-0.20) K/uL PT 16.0 H (9.8-11.7) SEC INR 1.5 Sodium 135 L (136-145) mmol/L Potassium 4.0 (3.5-5.1) mmol/L Chloride 99 (98-107) mmol/L Carbon Dioxide 25.8 (21.0-32.0) mmol/L BUN 34 H (7-18) mg/dL Creatinine 0.92 (0.51-1.17) mg/dL Est Cr Clr Drug Dosing 37.47 mL/min Estimated GFR (MDRD) 58 mL/min Glucose 95 (74-106) mg/dL Calcium 8.2 L (8.5-10.1) mg/dL Total Bilirubin 0.3 (0.2-1.0) mg/dL AST 17 (15-37) U/L ALT 21 (12-78) U/L Alkaline Phosphatase 55 (46-116) IU/L C-Reactive Protein < 0.1 (<=0.9) mg/dL Total Protein 6.1 L (6.4-8.2) g/dL Albumin 3.2 L (3.4-5.0) g/dL Med Orders - Current: Current Medications Acetaminophen (Tylenol) 650 mg PO Q4H PRN PRN Reason: Fever Last Admin: 10/02/16 14:04 Dose: 650 mg Hydrocodone Bitart/Acetaminophen ([employer] 325-5 Mg) 1 tab PO Q4H PRN PRN Reason: Pain Coenzyme Q10 (Coenzyme Q10) 100 mg PO BEDTIME [facility] Last Admin: 10/04/16 21:11 Dose: 100 mg Docusate Sodium (Colace) 200 mg PO BID PRN PRN Reason: Constipation Doxazosin Mesylate (Cardura) 4 mg PO Q12HR [facility] Last Admin: 10/05/16 07:14 Dose: 4 mg Famotidine (Pepcid) 20 mg IVPUSH BEDTIME [facility] Last Admin: 10/04/16 21:16 Dose: 20 mg Furosemide (Lasix) 40 mg IVPUSH DAILY [facility] Last Admin: 10/05/16 07:14 Dose: 40 mg Isosorbide Mononitrate (Imdur) 60 mg PO BEDTIME [facility] Last Admin: 10/04/16 21:13 Dose: 60 mg Levothyroxine Sodium (Synthroid) 50 mcg PO ACBREAKFAST [facility] Last Admin: 10/05/16 07:13 Dose: 50 mcg Lorazepam (Ativan) 0.5 mg PO BEDTIME PRN PRN Reason: restlessness Last Admin: 10/04/16 22:33 Dose: 0.5 mg Losartan Potassium (Cozaar) 50 mg PO DAILY [facility] Last Admin: 10/05/16 07:12 Dose: 50 mg Methyl Salicylate (Icy Hot Cream) 0 gm TOP ASDIRECTED PRN PRN Reason: Other Last Admin: 10/01/16 19:29 Dose: 1 applic Methylprednisolone Sodium Succinate (Solu-Medrol) 40 mg IVPUSH DAILY [facility] Last Admin: 10/05/16 07:15 Dose: 40 mg Metoprolol Tartrate (Lopressor) 12.5 mg PO Q12HR [facility] Last Admin: 10/05/16 07:13 Dose: 12.5 mg Non-Formulary Medication (Ketotifen Fumarate [Zaditor]) 1 drop EYEBOTH BEDTIME [facility] Last Admin: 10/04/16 21:15 Dose: Not Given Sodium Chloride (Saline Flush) 10 ml FLUSH ASDIRECTED PRN PRN Reason: Keep Vein Open Last Admin: 10/01/16 08:30 Dose: 10 ml Sodium Chloride (Saline Flush) 10 ml FLUSH Q12HR [facility] Last Admin: 10/04/16 21:15 Dose: 10 ml Warfarin Sodium (Coumadin) 2 mg PO SUWE@1800 [facility] Last Admin: 10/01/16 17:54 Dose: 2 mg Warfarin Sodium (Coumadin) 1 mg PO MoTuThFrSa@1800 [facility] Last Admin: 10/04/16 17:46 Dose: 1 mg Discontinued Medications Acetaminophen (Tylenol) 650 mg PO Q4HR PRN PRN Reason: Pain/Fever Celecoxib (Celebrex) 100 mg PO BID [facility] Last Admin: 10/02/16 17:29 Dose: 100 mg Doxazosin Mesylate (Cardura) 2 mg PO Q12HR [facility] Last Admin: 10/03/16 07:56 Dose: 2 mg Famotidine (Pepcid) 40 mg IVPUSH ONETIME ONE Stop: 09/30/16 23:08 Last Admin: 09/30/16 23:16 Dose: 40 mg Famotidine (Pepcid) 20 mg IVPUSH BID@0800,2000 [facility] Last Admin: 10/01/16 21:57 Dose: 20 mg Furosemide (Lasix) 40 mg IVPUSH Q8H [facility] Last Admin: 10/01/16 08:30 Dose: 40 mg Furosemide (Lasix) 40 mg IVPUSH ONETIME ONE Stop: 10/02/16 14:01 Last Admin: 10/02/16 14:05 Dose: 40 mg Hydralazine HCl (Apresoline) 10 mg IVPUSH ONETIME ONE Stop: 09/30/16 23:38 Last Admin: 09/30/16 23:44 Dose: 10 mg Labetalol HCl (Normodyne) 10 mg IVPUSH ONETIME ONE PRN Reason: Protocol Stop: 09/30/16 23:12 Last Admin: 09/30/16 23:15 Dose: 10 mg Losartan Potassium (Cozaar) 25 mg PO DAILY [facility] Last Admin: 10/02/16 07:29 Dose: 25 mg Methylprednisolone Sodium Succinate (Solu-Medrol) 40 mg IVPUSH ONETIME ONE Stop: 10/01/16 18:01 Last Admin: 10/01/16 17:52 Dose: 40 mg Methylprednisolone Sodium Succinate (Solu-Medrol) 40 mg IVPUSH DAILY [facility] Last Admin: 10/02/16 07:30 Dose: 40 mg Methylprednisolone Sodium Succinate (Solu-Medrol) 20 mg IVPUSH ONETIME ONE Stop: 10/03/16 08:01 Last Admin: 10/03/16 07:55 Dose: 20 mg Ondansetron HCl (Zofran) 4 mg IVPUSH ONETIME ONE Stop: 10/01/16 01:34 Last Admin: 10/01/16 02:01 Dose: 4 mg Potassium Chloride (Klor-Con M20) 20 meq PO TIDMEALS [facility] Last Admin: 10/01/16 11:48 Dose: 20 meq Sodium Chloride (Saline Flush) 10 ml FLUSH Q12HR PRN PRN Reason: Keep Vein Open Last Admin: 10/02/16 07:31 Dose: 10 ml Warfarin Sodium (Coumadin) 1 mg PO Hannah [facility] Last Admin: 10/01/16 14:50 Dose: Not Given Warfarin Sodium (Coumadin) 1 mg PO NOW ONE Stop: 10/01/16 01:16 Last Admin: 10/01/16 02:01 Dose: 1 mg - Exam General: alert, oriented HEENT: EOMI, Mucous membr. moist/pink Neck: supple, trachea midline, no JVD Lungs: Clear to auscultation, Normal respiratory effort Cardiovascular: Regular Rate, Regular Rhythm (still PVC's on EKG) Abdomen: bowel sounds present, soft, no tenderness, no distension (Female) Exam: Deferred Back Exam: Normal Inspection Extremities: no edema Skin: warm, dry, intact Neurological: no new focal deficit Psy/Mental Status: alert, normal affect, normal mood - Problem List Review Problem List Initiated/Reviewed/Updated: Yes - Plan Plan:: 10/01/16 Yehuda Quintana MD Still not feeling good. Hurts all over especially hands. Edema hands and ankles. Blood pressure improved today. 10/02/16 (late entry) Yehuda Quintana MD Feeling better this AM now feeling flushed and not good. Pain in hands is better. Blood pressure still labile up and down. 10/03/16 Yehuda Quintana MD Not feeling as well today. Some pain. Brain a little fuzzy. Couldn't sleep well last night. Blood Pressure better range. 10-04-16 Beth Vivas PA-C Up ambulating in hallway. 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 Denies CP or SOB, but says she is still a little light-headed or fuzzy - initially says that this has been something that has happened occasionally at home in the past, then says that it seems "different" now and feels as though her vision is fuzzy. Denies visual pain. Had her eyes professionally checked fairly recently. Did have a dull right sided headache this morning, seems better. Also concerned because after a regular BM this morning had a soft, almost loose stool. Denies abdominal pain. BP stabilizing with current med regimen, probable discharge to home in am. Will monitor for 24 more hours. Did order medications down at [facility] so family can picker operator to have at home. 10-05-16 Beth Vivas PA-C Has been up quite a lot ambulating in the hallway, says she can't believe how far she can walk now without the terrible chronic pain. Denies any more of the "fuzzy" feeling in her head/eyes. Very ready to go home with son and daughter- in-law, with Home Health nursing to follow. Discharging to home (son's home), with Home Health. Instructions include follow -up in [facility] next week with her regular provider KARRIE Bee.
--- NOTE | 2016-10-05 12:09 | PCM.DCSUM1 ---
Discharge Summary - Hospital Course Brief History: Patient admitted through the ER with uncontrolled HTN and CHF exacerbation. - Discharge Data Discharge Date: 10/05/16 Discharge Disposition: Home, Self-Care 01 Condition: Good - Patient Summary/Data Hospital Course: Patient's antihypertensive medications were adjusted, and she was diuresed. Solu-Medrol was initiated to control the long-term severe arthritic pain which was an aggravating factor to all medical comordities. - Patient Instructions Diet: Heart Healthy Diet Driving: Do Not Drive Showering/Bathing: May Shower Other/Special Instructions: Follow up with LIN Bee at [facility] next week. Call [phone] to schedule appointment. - Discharge Plan Prescriptions/Med Rec: Doxazosin [Cardura] 4 mg PO Q12HR #60 tablet Losartan [Cozaar] 50 mg PO DAILY #30 tablet Prednisone [IJP: Prednisone] 5 mg PO ACBREAKFAST #30 tab Home Medications: Home Meds Acetaminophen 650 mg PO Q4HR PRN 07/15/16 [History] Docusate Sodium [Colace] 2 cap PO BID PRN 07/15/16 [History] Ketotifen Fumarate [Zaditor] 1 drop EYEBOTH BEDTIME 07/15/16 [History] LORazepam [Ativan] 0.5 mg PO BEDTIME PRN 07/15/16 [History] Levothyroxine Sodium [Unithroid] 50 mcg PO DAILY 07/15/16 [History] Lutein/Minerals/Vit A,C & E [Ocuvite] 1 tab PO BID 07/15/16 [History] Methyl Salicylate/Menthol [Muscle Rub] 1 applic TOP ASDIRECTED PRN 07/15/16 [ History] Multivitamin [Daily Rajat] 1 tab PO DAILY 07/15/16 [History] Nitroglycerin [Nitrostat] 0.4 mg SL Q5M PRN 07/15/16 [History] Warfarin [Coumadin] 1 tab PO MOTUTHFRSA@1800 07/15/16 [History] Warfarin [Coumadin] 2 mg PO SUWE@1800 07/15/16 [History] Metoprolol Tartrate [Lopressor] 12.5 mg PO Q12HR #15 tablet 07/18/16 [Rx] Isosorbide Mononitrate [Imdur] 60 mg PO BEDTIME #30 tab.er 03/22/17 [Rx] Cholecalciferol (Vitamin D3) [Vitamin D3] 2,000 unit PO BEDTIME 09/30/16 [ History] Furosemide [Lasix] 40 mg PO DAILY 09/30/16 [History] Lactobacillus Combination No.4 [Probiotic] 1 each PO BEDTIME 09/30/16 [History] Ubidecarenone [Co Q-10] 100 mg PO BEDTIME 09/30/16 [History] Doxazosin [Cardura] 4 mg PO Q12HR #60 tablet 10/05/16 [Rx] Losartan [Cozaar] 50 mg PO DAILY #30 tablet 10/05/16 [Rx] Prednisone [IJP: Prednisone] 5 mg PO ACBREAKFAST #30 tab 10/05/16 [Rx] Patient Handouts: Heart Failure Forms: ED Department Discharge Referrals: Yarelis Amezcua NP [Primary Care Provider] - - Discharge Summary/Plan Comment DC Time >30 min.: Yes Discharge Summary/Plan Comment: Discharging from IP status today to return to her son and [id number]'s home , with Home Health nursing to follow. she wants to return to her own home as soon as she is able. - Patient Data Vitals - Most Recent: Last Vital Signs Temp 99 F 10/04/16 20:00 Pulse 84 10/05/16 07:13 Resp 20 10/04/16 20:00 BP 164/74 H 10/05/16 07:14 Pulse Ox 98 10/04/16 20:00 Weight - Most Recent: 168 lb 6.4 oz I&O - Last 24 hours: Intake & Output 10/04/16 10/05/16 10/05/16 22:59 06:59 14:59 Intake Total 200 700 Output Total 950 Balance -750 700 Lab Results - Last 24 hrs: Laboratory Results - last 24 hr 10/05/16 10/05/16 10/05/16 Range/Units 07:00 07:00 07:00 WBC 8.0 (4.0-10.2) K/uL RBC 3.62 L (3.77-5.09) M/uL Hgb 9.7 L (11.7-15.5) g/dL Hct 30.4 L (34.0-46.0) % MCV 84.0 (84.0-98.0) fL MCH 26.8 L (28.2-33.3) pg MCHC 31.9 (31.7-36.0) g/dL RDW 15.3 H (11.2-14.1) % Plt Count 248 (150-350) K/uL Neut % (Auto) 67.4 (45.0-80.0) % Lymph % (Auto) 22.1 (10.0-50.0) % Oliver % (Auto) 9.6 (2.0-14.0) % Eos % (Auto) 0.4 (0.0-5.0) % Baso % (Auto) 0.5 (0.0-2.0) % Neut # (Auto) 5.38 (1.40-7.00) K/uL Lymph # (Auto) 1.76 (0.50-3.50) K/uL Oliver # (Auto) 0.77 (0.00-1.00) K/uL Eos # (Auto) 0.03 (0.00-0.50) K/uL Baso # (Auto) 0.04 (0.00-0.20) K/uL PT 16.0 H (9.8-11.7) SEC INR 1.5 Sodium 135 L (136-145) mmol/L Potassium 4.0 (3.5-5.1) mmol/L Chloride 99 (98-107) mmol/L Carbon Dioxide 25.8 (21.0-32.0) mmol/L BUN 34 H (7-18) mg/dL Creatinine 0.92 (0.51-1.17) mg/dL Est Cr Clr Drug Dosing 37.47 mL/min Estimated GFR (MDRD) 58 mL/min Glucose 95 (74-106) mg/dL Calcium 8.2 L (8.5-10.1) mg/dL Total Bilirubin 0.3 (0.2-1.0) mg/dL AST 17 (15-37) U/L ALT 21 (12-78) U/L Alkaline Phosphatase 55 (46-116) IU/L C-Reactive Protein < 0.1 (<=0.9) mg/dL Total Protein 6.1 L (6.4-8.2) g/dL Albumin 3.2 L (3.4-5.0) g/dL Med Orders - Current: Current Medications Acetaminophen (Tylenol) 650 mg PO Q4H PRN PRN Reason: Fever Last Admin: 10/02/16 14:04 Dose: 650 mg Hydrocodone Bitart/Acetaminophen ([employer] 325-5 Mg) 1 tab PO Q4H PRN PRN Reason: Pain Coenzyme Q10 (Coenzyme Q10) 100 mg PO BEDTIME [facility] Last Admin: 10/04/16 21:11 Dose: 100 mg Docusate Sodium (Colace) 200 mg PO BID PRN PRN Reason: Constipation Doxazosin Mesylate (Cardura) 4 mg PO Q12HR [facility] Last Admin: 10/05/16 07:14 Dose: 4 mg Famotidine (Pepcid) 20 mg IVPUSH BEDTIME [facility] Last Admin: 10/04/16 21:16 Dose: 20 mg Furosemide (Lasix) 40 mg IVPUSH DAILY [facility] Last Admin: 10/05/16 07:14 Dose: 40 mg Isosorbide Mononitrate (Imdur) 60 mg PO BEDTIME [facility] Last Admin: 10/04/16 21:13 Dose: 60 mg Levothyroxine Sodium (Synthroid) 50 mcg PO ACBREAKFAST [facility] Last Admin: 10/05/16 07:13 Dose: 50 mcg Lorazepam (Ativan) 0.5 mg PO BEDTIME PRN PRN Reason: restlessness Last Admin: 10/04/16 22:33 Dose: 0.5 mg Losartan Potassium (Cozaar) 50 mg PO DAILY [facility] Last Admin: 10/05/16 07:12 Dose: 50 mg Methyl Salicylate (Icy Hot Cream) 0 gm TOP ASDIRECTED PRN PRN Reason: Other Last Admin: 10/01/16 19:29 Dose: 1 applic Methylprednisolone Sodium Succinate (Solu-Medrol) 40 mg IVPUSH DAILY [facility] Last Admin: 10/05/16 07:15 Dose: 40 mg Metoprolol Tartrate (Lopressor) 12.5 mg PO Q12HR [facility] Last Admin: 10/05/16 07:13 Dose: 12.5 mg Non-Formulary Medication (Ketotifen Fumarate [Zaditor]) 1 drop EYEBOTH BEDTIME [facility] Last Admin: 10/04/16 21:15 Dose: Not Given Sodium Chloride (Saline Flush) 10 ml FLUSH ASDIRECTED PRN PRN Reason: Keep Vein Open Last Admin: 10/01/16 08:30 Dose: 10 ml Sodium Chloride (Saline Flush) 10 ml FLUSH Q12HR [facility] Last Admin: 10/04/16 21:15 Dose: 10 ml Warfarin Sodium (Coumadin) 2 mg PO SUWE@1800 [facility] Last Admin: 10/01/16 17:54 Dose: 2 mg Warfarin Sodium (Coumadin) 1 mg PO MoTuThFrSa@1800 [facility] Last Admin: 10/04/16 17:46 Dose: 1 mg Discontinued Medications Acetaminophen (Tylenol) 650 mg PO Q4HR PRN PRN Reason: Pain/Fever Celecoxib (Celebrex) 100 mg PO BID [facility] Last Admin: 10/02/16 17:29 Dose: 100 mg Doxazosin Mesylate (Cardura) 2 mg PO Q12HR [facility] Last Admin: 10/03/16 07:56 Dose: 2 mg Famotidine (Pepcid) 40 mg IVPUSH ONETIME ONE Stop: 09/30/16 23:08 Last Admin: 09/30/16 23:16 Dose: 40 mg Famotidine (Pepcid) 20 mg IVPUSH BID@0800,1999 [facility] Last Admin: 10/01/16 21:57 Dose: 20 mg Furosemide (Lasix) 40 mg IVPUSH Q8H [facility] Last Admin: 10/01/16 08:30 Dose: 40 mg Furosemide (Lasix) 40 mg IVPUSH ONETIME ONE Stop: 10/02/16 14:01 Last Admin: 10/02/16 14:05 Dose: 40 mg Hydralazine HCl (Apresoline) 10 mg IVPUSH ONETIME ONE Stop: 09/30/16 23:38 Last Admin: 09/30/16 23:44 Dose: 10 mg Labetalol HCl (Normodyne) 10 mg IVPUSH ONETIME ONE PRN Reason: Protocol Stop: 09/30/16 23:12 Last Admin: 09/30/16 23:15 Dose: 10 mg Losartan Potassium (Cozaar) 25 mg PO DAILY [facility] Last Admin: 10/02/16 07:29 Dose: 25 mg Methylprednisolone Sodium Succinate (Solu-Medrol) 40 mg IVPUSH ONETIME ONE Stop: 10/01/16 18:01 Last Admin: 10/01/16 17:52 Dose: 40 mg Methylprednisolone Sodium Succinate (Solu-Medrol) 40 mg IVPUSH DAILY [facility] Last Admin: 10/02/16 07:30 Dose: 40 mg Methylprednisolone Sodium Succinate (Solu-Medrol) 20 mg IVPUSH ONETIME ONE Stop: 10/03/16 08:01 Last Admin: 10/03/16 07:55 Dose: 20 mg Ondansetron HCl (Zofran) 4 mg IVPUSH ONETIME ONE Stop: 10/01/16 01:34 Last Admin: 10/01/16 02:01 Dose: 4 mg Potassium Chloride (Klor-Con M20) 20 meq PO TIDMEALS [facility] Last Admin: 10/01/16 11:48 Dose: 20 meq Sodium Chloride (Saline Flush) 10 ml FLUSH Q12HR PRN PRN Reason: Keep Vein Open Last Admin: 10/02/16 07:31 Dose: 10 ml [facility]in S[facility] ([facility]) [facility] Last Admin: 10/01/16 14:50 Dose: Not Given Warfarin Sodium (Coumadin) 1 mg PO NOW ONE Stop: 10/01/16 01:16 Last Admin: 10/01/16 02:01 Dose: 1 mg *Q Meaningful Use (DIS) - VTE *Q VTE Criteria *Q: - Stroke *Q Stroke Criteria *Q: - AMI *Q AMI Criteria *Q:
== END 2016-10-05 12:53 | disposition home or self-care (01) | DRG 293 ==
LOC: LL.ED 22:53 → LL.MS 10-01 00:10
PROVIDERS: ADMIT Family Medicine; ATTEND Family Medicine
DX: I11.0 Hypertensive heart disease with heart failure (principal); I50.43 Acute on chronic combined systolic (congestive) and diastolic (congestive) heart failure; K21.9 Gastro-esophageal reflux disease without esophagitis; M19.90 Unspecified osteoarthritis, unspecified site; E03.9 Hypothyroidism, unspecified; J43.1 Panlobular emphysema; D50.9 Iron deficiency anemia, unspecified; I49.3 Ventricular premature depolarization; F41.8 Other specified anxiety disorders; R51 Headache; Z96.642 Presence of left artificial hip joint; N28.9 Disorder of kidney and ureter, unspecified; Z86.711 Personal history of pulmonary embolism; Z86.718 Personal history of other venous thrombosis and embolism; Z79.01 Long term (current) use of anticoagulants
CPT/HCPCS: 36415; 71010; 80053; 82550; 82553; 83605; 83735; 83880; 84443; 84484; 84550; 85025; 85379; 85610; 85730; 86318; 93005; 96374; 96375; 99285; J0360; J7050; 80061; 82272; 82384; 83036; 83835; 85651; 86140; A9270-GY; J1940; J2405; J2920; S0028

== ENCOUNTER 2016-12-05 12:17 | Inpatient (IN) | payer MEDICARE, OTHER ==
[2016-12-05] MEDS ORDERED: Acetaminophen 325 MG Tab PO PRN (13:00)
--- NOTE | 2016-12-05 13:24 | PCM.HP ---
H&P History of Present Illness - General Date of Service: 12/05/16 Admit Problem/Dx: Admission Diagnosis/Problem Admission Diagnosis/Problem Chest pain Source of Information: Patient, EMS Notes Reviewed History Limitations: Reports: No Limitations - History of Present Illness Initial Comments - Free Text/Narative: Patient states not feeling well over the last week and progressively getting worse. Blood pressure is elevated with morning in 180's SBP, had episode of racing heart and near syncopal episode yesterday. Denies chest pain at this time. Patient recently had a sinus infection was recently treated with antibiotics and low blood pressure noted, so Amlodipine was decreased from 2.5mg twice a day to 2.5mg in the evening. feels foggy in the head. Onset of Symptoms: Reports: Gradual Duration of Symptoms: Reports: Getting Worse Location: Reports: Head Associated Symptoms: Reports: Chest Pain, Headaches, Malaise - Related Data Allergies/Adverse Reactions: Allergies Allergy/AdvReac Type Severity Reaction Status Date / Time atorvastatin calcium Allergy Lightheaded Verified 09/30/16 23:34 [From Lipitor] ness benzalkonium chloride Allergy Redness Verified 09/30/16 23:34 [From Travatan] celecoxib [From Celebrex] Allergy Change Verified 09/30/16 23:34 Mental Status erythromycin base Allergy Hives Verified 09/30/16 23:34 [Erythromycin Base] iodine Allergy Other Verified 09/30/16 23:34 nifedipine Allergy Swelling Verified 09/30/16 23:34 Penicillins Allergy Swelling Verified 09/30/16 23:34 rofecoxib [From Vioxx] Allergy Change Verified 09/30/16 23:34 Mental Status rosuvastatin calcium Allergy Lightheaded Verified 09/30/16 23:34 [From Crestor] ness sulfamethoxazole Allergy Hives Verified 09/30/16 23:34 [From Sulfamethoprim] travoprost [From Travatan] Allergy Redness Verified 09/30/16 23:34 trimethoprim Allergy Hives Verified 09/30/16 23:34 [From Sulfamethoprim] valdecoxib [From Bextra] Allergy Change Verified 09/30/16 23:34 Mental Status soy Allergy Nausea and Uncoded 09/30/16 23:34 Vomiting Home Medications: Home Meds Acetaminophen 650 mg PO Q4HR PRN 07/15/16 [History] Docusate Sodium [Colace] 2 cap PO BID PRN 07/15/16 [History] Ketotifen Fumarate [Zaditor] 1 drop EYEBOTH BEDTIME 07/15/16 [History] LORazepam [Ativan] 0.5 mg PO BEDTIME PRN 07/15/16 [History] Levothyroxine Sodium [Unithroid] 50 mcg PO DAILY 07/15/16 [History] Lutein/Minerals/Vit A,C & E [Ocuvite] 1 tab PO BID 07/15/16 [History] Methyl Salicylate/Menthol [Muscle Rub] 1 applic TOP ASDIRECTED PRN 07/15/16 [ History] Multivitamin [Daily Rajat] 1 tab PO DAILY 07/15/16 [History] Nitroglycerin [Nitrostat] 0.4 mg SL Q5M PRN 07/15/16 [History] Warfarin [Coumadin] 1 tab PO MOTUTHFRSA@1800 07/15/16 [History] Warfarin [Coumadin] 2 mg PO SUWE@1800 07/15/16 [History] Metoprolol Tartrate [Lopressor] 12.5 mg PO Q12HR #15 tablet 07/18/16 [Rx] Isosorbide Mononitrate [Imdur] 60 mg PO BEDTIME #30 tab.er 08/13/16 [Rx] Cholecalciferol (Vitamin D3) [Vitamin D3] 2,000 unit PO BEDTIME 09/30/16 [ History] Furosemide [Lasix] 40 mg PO DAILY 09/30/16 [History] Lactobacillus Combination No.4 [Probiotic] 1 each PO BEDTIME 09/30/16 [History] Ubidecarenone [Co Q-10] 100 mg PO BEDTIME 09/30/16 [History] Doxazosin [Cardura] 4 mg PO Q12HR #60 tablet 10/05/16 [Rx] Losartan [Cozaar] 50 mg PO DAILY #30 tablet 10/05/16 [Rx] Prednisone [IJP: Prednisone] 5 mg PO ACBREAKFAST #30 tab 10/05/16 [Rx] Past Medical History HEENT History: Reports: Allergic Rhinitis, Cataract, Glaucoma, Hard of Hearing, Impaired Vision, Other (See Below) Other HEENT History: Patient wears trifocals, bilateral hearing aides Cardiovascular History: Reports: Afib, Arrhythmia, Blood Clots/VTE/DVT, CAD, Cardiomyopathy, Heart Failure, Heart Murmur, High Cholesterol, Hypertension, PVD , Other (See Below) Other Cardiovascular History: First degree A-V block, PVCs, PACs, distant brief atrial fibrillation, patient denies previous PA despite medical records, grade 2 diastolic dysfunction, moderate left ventricular hypertrophy and left atrial enlargement by echocardiogram, mild pulmonary valve insufficiency and mild to moderate tricuspid valve insufficiency with additional mild mitral valve insufficiency by echocardiogram, mild aortic valve sclerosis without stenosis, mild carotid occlusive, history of superficial thrombophlebitis and varicose veins, DVT of the proximal left femoral vein on 08/09/15 with right-sided PE on 05/08/16 and current warfarin therapy Respiratory History: Reports: COPD, Intubation, Previous, PE, Sleep Apnea, SOB, Other (See Below) Other Respiratory History: Patient does use CPAP for her moderate to severe obstructive sleep apnea with previous history of nocturnal hypoxemia, PE as above, benign pulmonary nodules with previous left apical benign granuloma by CT scan on 05/08/16, COPD by chest x-ray with no medical therapy Gastrointestinal History: Reports: Chronic Constipation, Diverticulosis, GERD, Hiatal Hernia, Other (See Below) Other Gastrointestinal History: Probable benign right hepatic mass at about 2.[address] scan on 08/11/16, Benign hepatic cysts by CT scan on 02/18/16, fatty liver secondary to hyperlipidemia Genitourinary History: Reports: Chronic Renal Insuffiency, Renal Disease, Urinary Incontinence, Other (See Below) Other Genitourinary History: kidney disease stage 3, bilateral benign renal cysts [employer] History: Reports: Dysfunctional Uterine Bleeding, Fibroids, Other OB/BYN History: surgical menopause Musculoskeletal History: Reports: Arthritis, Back Pain, Chronic, Fibromyalgia, Gout, Neck Pain, Chronic, Osteoarthritis, Osteoporosis, RA Neurological History: Reports: CVA, Headaches, Chronic, Migraines, Other (See Below) Other Neuro History: 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, ambulates with a cane currently, history of distant migraine headaches nonproblematic at this time Psychiatric History: Reports: Addiction, Anxiety, Depression, Other (See Below) Other Psychiatric History: Chronic narcotic use secondary to her fibromyalgia and arthritis Endocrine/Metabolic History: Reports: Hypothyroidism, Osteoporosis, Other (See Below) Other Endocrine/Metabolic History: Hyponatremia secondary to CHF Hematologic History: Reports: Anemia, Blood Transfusion(s), Iron Deficiency, Other (See Below) Other Hematologic History: 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 with transfusion required Immunologic History: Reports: None Oncologic (Cancer) History: Reports: None Dermatologic History: Reports: Other (See Below) Other Dermatologic History: Actinic keratosis of the nose previously treated - Infectious Disease History Infectious Disease History: Reports: Chicken Pox, Measles, Mumps, Shingles - Past Surgical History HEENT Surgical History: Reports: Cataract Surgery, Oral Surgery, Other (See Below) Cardiovascular Surgical History: Reports: Varicose, Vascular Surgery, Other ( See Below) GI Surgical History: Reports: Appendectomy, Colonoscopy, Other (See Below) Female Surgical History: Reports: Breast Biopsy, Hysterectomy, Salpingo- Oophorectomy, Other (See Below) Musculoskeletal Surgical History: Reports: Arthroscopic Knee, Arthroscopic Procedure, Carpal Tunnel, Hip Replacement, Joint Replacement, Other (See Below) Oncologic Surgical History: Reports: Biopsy of Breast, Other (See Below) - Past Imaging History Past Imaging History: Reports: Angiography, Cardiac Echo, Carotid US, CAT Scan, Mammogram, MRI, Sleep Study, Stress Testing, Ultrasound, Venous Doppler Social & Family History - Family History HEENT: Reports: Allergic Rhinitis, Retinal Detachment, Other (See Below) Other HEENT Family History: Daughter with retinal detachment Cardiac: Reports: Bypass, CAD, Heart Murmur, Heart Valve Replacement, High Cholesterol, Hypertension, PA, PVD/COD, Other (See Below) Other Cardiac Family History: Son with mechanical valve replacement and CABG x1 at about age 62, son also - also suffers from hypertension and hyperlipidemia, son with agent orange exposure Respiratory: Reports: None GI: Reports: Celiac Disease, Other (See Below) Other GI Family History: Daughter with celiac disease : Reports: Renal Disease/Insufficiency, Other (See Below) Other Family History: Mother with end-stage renal disease OBGYN: Reports: None Musculoskeletal: Reports: None Neurological: Reports: Migraines, Seizure, Other (See Below) Other Neurological Family History: Granddaughter with seizures at age 19, 2 granddaughters with migraine headaches Psychiatric: Reports: Anxiety, Depression, Other (See Below) Other Psychiatric Family History: Son with anxiety depression disorder Endocrine/Metabolic: Reports: None Hematologic: Reports: None Immunologic: Reports: None Dermatologic: Reports: Psoriasis, Other (See Below) Other Dermatologic Family History: Daughter with psoriasis Oncologic: Reports: Bone, Esophageal, Metastatic, Other (See Below) Other Oncologic Family History: Sister with possible bone cancer fatal at age 18 , sister with fatal throat cancer in her 60s, sister with fatal vaginal cancer in her 60s, father with fatal throat cancer with pulmonary metastases at age 77 - Tobacco Use Smoking Status *Q: Never Smoker Second Hand Smoke Exposure: No - Caffeine Use Caffeine Use: Reports: Coffee (4 cups per day), Soda (2 sodas per month), Tea ( 2 cups per week). Denies: Energy Drinks - Alcohol Use Days Per Week of Alcohol Use: 0 (No previous DWIs, problems with alcohol abuse, etc.) Number of Drinks Per Day: 1 (Usually occasional beer or wine once per month) Total Drinks Per Week: 0 - Recreational Drug Use Recreational Drug Use: No Drug Use in Last 12 Months: No - Living Situation & Occupation Living situation: Reports: , Alone Occupation: Retired H&P Review of Systems - Review of Systems: Review Of Systems: See Below General: Reports: Weakness HEENT: Reports: Headaches (dull headache) Pulmonary: Reports: No Symptoms Cardiovascular: Reports: Palpitations, Lightheadedness Gastrointestinal: Reports: No Symptoms Genitourinary: Reports: No Symptoms Musculoskeletal: Reports: No Symptoms Skin: Reports: No Symptoms Psychiatric: Reports: No Symptoms Neurological: Reports: Dizziness Hematologic/Lymphatic: Reports: No Symptoms Immunologic: Reports: No Symptoms Exam - Exam Exam: See Below - Vital Signs Weight: 168 lb 6.4 oz - Exam Quality Assessment: DVT Prophylaxis General: Alert, Oriented, Cooperative HEENT: Conjunctiva Clear, EACs Clear, EOMI, Hearing Intact, Mucosa Moist & [place] , Nares Patent, Normal Nasal Septum, Posterior Pharynx Clear, Pupils Equal, Pupils Reactive, TMs Clear Neck: Supple, Trachea Midline Lungs: Clear to Auscultation, Normal Respiratory Effort Cardiovascular: Regular Rate, Regular Rhythm, Normal S1, Normal S2, Systolic Murmur Abdomen: Normal Bowel Sounds, Soft, Pelvis Stable Back Exam: Normal Inspection, Full Range of Motion Extremities: Edema Peripheral Pulses: 1+: Dorsalis Pedis (L), Dorsalis Pedis (R) Skin: Warm, Dry, Intact Neurological: Cranial Nerves Intact, Reflexes Equal Bilateral Neuro Extensive - Mental Status: Alert, Oriented x3, Normal Mood/Affect, Normal Cognition, Memory Intact DTR: 1+: Achilles (L), Achilles (R) Psychiatric: Alert, Normal Affect, Normal Mood *Q Meaningful Use (ADM) - VTE *Q VTE Criteria *Q: - Stroke *Q Stroke Criteria *Q: - AMI *Q AMI Criteria *Q: - Problem List (1) Dizziness and giddiness SNOMED Code(s): 475041125 ICD Code: R42 - DIZZINESS AND GIDDINESS Status: Acute Priority: High Current Visit: No (2) Chest pain SNOMED Code(s): 91984739 ICD Code: R07.9 - CHEST PAIN, UNSPECIFIED Status: Acute Current Visit: Yes Qualifiers: Chest pain type: unspecified Qualified Code(s): R07.9 - Chest pain, unspecified (3) HTN (hypertension) SNOMED Code(s): 24535106 ICD Code: I10 - ESSENTIAL (PRIMARY) HYPERTENSION Status: Acute Priority: High Current Visit: No Qualifiers: Hypertension type: essential hypertension (4) CHF (congestive heart failure) SNOMED Code(s): 71554145 ICD Code: I50.9 - HEART FAILURE, UNSPECIFIED Status: Acute Priority: High Current Visit: No Onset Date: 10/01/16 Qualifiers: Congestive heart failure type: combined Congestive heart failure chronicity : acute on chronic Qualified Code(s): I50.43 - Acute on chronic combined systolic (congestive) and diastolic (congestive) heart failure Problem List Initiated/Reviewed/Updated: Yes Orders Last 24hrs: Active Orders 24 hr Category Date Time Status Patient Status [ADT] Routine ADT 12/05/16 13:12 Ordered Ambulate [RC] ASDIRECTED Care 12/05/16 13:12 Ordered Cardiac Monitoring [RC] CONTINUOUS Care 12/05/16 13:16 Ordered EKG Documentation Completion [RC] ASDIRECTED Care 12/05/16 13:17 Ordered Intake and Output [RC] QSHIFT Care 12/05/16 13:16 Ordered May Shower [RC] ASDIRECTED Care 12/05/16 13:12 Ordered Oxygen Therapy [RC] PRN Care 12/05/16 13:12 Ordered Peripheral IV Care [RC] . DIRECTED Care 12/05/16 13:17 Ordered VTE/DVT Education [RC] PER UNIT ROUTINE Care 12/05/16 13:12 Ordered Vital Signs [RC] Q4H Care 12/05/16 13:12 Ordered Regular Diet [DIET] Diet 12/05/16 Lunch Ordered Chest 2V [CR] Routine Exams 12/05/16 11:30 Taken CBC WITH AUTO DIFF [HEME] AM Lab 12/06/16 05:11 Ordered COMPREHENSIVE METABOLIC PN,CMP [CHEM] AM Lab 12/06/16 05:11 Ordered TROPONIN I [CHEM] DAILY Lab 12/05/16 13:15 Ordered UA W/MICROSCOPIC [URIN] Routine Lab 12/05/16 13:12 Uncollected Acetaminophen [Tylenol] Med 12/05/16 13:12 Ordered 650 mg PO Q4H PRN Sodium Chloride 0.9% [Saline Flush] Med 12/05/16 13:12 Ordered 10 ml FLUSH ASDIRECTED PRN Peripheral IV Insertion Adult [OM.PC] Routine Oth 12/05/16 13:12 Ordered Saline Lock Insert [OM.PC] Routine Oth 12/05/16 13:12 Ordered Resuscitation Status Routine Resus Stat 12/05/16 13:12 Ordered EKG 12 Lead [EK] AM Ther 12/06/16 05:11 Ordered Assessment/Plan Comment:: Patient is admitted to observation to Dr Blackman. On telemetry, recheck labs in the am, monitor blood pressures, and change amlodipine to 2.5mg twice a day. Patient was only taking at night, but now with elevated blood pressure will change the dose. Patient needing observation due to her BP 180/84, episode of chest pain and monitoring of heart rate. Yarelis Amezcua,JOSÉ MIGUEL
[2016-12-05] MEDS ORDERED: Acetaminophen 650 MG Tab.ER PO PRN (14:40)
[2016-12-05] MEDS ORDERED: LORazepam 0.5 MG Tab PO PRN (14:40)
[2016-12-05] MEDS ORDERED: Nitroglycerin 0.4 MG Tab.SL SL PRN (14:40)
[2016-12-05] MEDS: Doxazosin 4 MG Tab PO SCH (17:29)
[2016-12-05] MEDS ORDERED: Warfarin 2 MG Tab PO SCH (18:00)
[2016-12-05] MEDS ORDERED: WARFARIN PO SCH (18:00)
[2016-12-05] MEDS: amLODIPine 5 MG Tab PO SCH (20:26)
[2016-12-05] MEDS: Isosorbide Mononitrate 60 MG Tab.ER PO SCH (20:27)
[2016-12-05] MEDS: Metoprolol Tartrate 25 MG Tab PO SCH (20:27)
[2016-12-05] MEDS: Ketotifen 0.025% Ophth Soln 5 ML Bottle EYEBOTH SCH (20:29)
[2016-12-05] MEDS: Sodium Chloride 0.9% 10 ML Syringe FLUSH PRN (20:31)
[2016-12-06] MEDS: Multivitamin Tab PO SCH (07:31)
[2016-12-06] MEDS: Metoprolol Tartrate 25 MG Tab PO SCH ×2 (07:32→19:17)
[2016-12-06] MEDS: Levothyroxine 50 MCG Tab PO SCH (07:33)
[2016-12-06] MEDS: predniSONE 5 MG Tab PO SCH (07:33)
[2016-12-06] MEDS: Doxazosin 4 MG Tab PO SCH ×2 (07:33→19:17)
[2016-12-06] MEDS: amLODIPine 5 MG Tab PO SCH ×2 (07:34→19:16)
[2016-12-06] MEDS: Sodium Chloride 0.9% 10 ML Syringe FLUSH PRN (07:35)
[2016-12-06] MEDS: Omeprazole 20 MG Cap.CR PO SCH (07:35)
[2016-12-06] MEDS ORDERED: Losartan 50 MG Tab PO SCH (08:00)
--- NOTE | 2016-12-06 17:10 | PCM.PN ---
- General Info Date of Service: 12/06/16 Admission Dx/Problem (Free Text): Admission Diagnosis/Problem Admission Diagnosis/Problem Chest pain Functional Status: Reports: pain controlled, tolerating diet, ambulating - Review of Systems General: Reports: Other (feels better. less "fuzzy" in the head.) HEENT: Reports: sinus congestion Pulmonary: Reports: no symptoms Cardiovascular: Reports: No Symptoms Gastrointestinal: Reports: No symptoms Genitourinary: Reports: no symptoms Musculoskeletal: Reports: no symptoms Skin: Reports: no symptoms Neurological: Reports: No Symptoms Psychiatric: Reports: anxiety - Patient Data Vitals - most recent: Last Vital Signs Temp 97.6 F 12/06/16 16:00 Pulse 77 12/06/16 16:00 Resp 18 12/06/16 16:00 BP 180/80 H 12/06/16 16:00 Pulse Ox 97 12/06/16 16:00 Weight - most recent: 168 lb 6.401 oz I&O - last 24 hours: Intake & Output 12/06/16 12/06/16 12/06/16 06:59 14:59 22:59 Intake Total 350 Output Total 200 Balance 150 Lab Results last 24 hrs: Laboratory Results - last 24 hr 12/05/16 12/05/16 12/06/16 Range/Units 18:30 18:40 07:20 WBC 7.7 (4.0-10.2) K/uL RBC 3.68 L (3.77-5.09) M/uL Hgb 10.3 L (11.7-15.5) g/dL Hct 31.4 L (34.0-46.0) % MCV 85.3 (84.0-98.0) fL MCH 28.0 L (28.2-33.3) pg MCHC 32.8 (31.7-36.0) g/dL RDW 16.6 H (11.2-14.1) % Plt Count 254 (150-350) K/uL Neut % (Auto) 58.3 (45.0-80.0) % Lymph % (Auto) 30.1 (10.0-50.0) % [place] % (Auto) 8.6 (2.0-14.0) % Eos % (Auto) 2.2 (0.0-5.0) % Baso % (Auto) 0.8 (0.0-2.0) % Neut # (Auto) 4.50 (1.40-7.00) K/uL Lymph # (Auto) 2.32 (0.50-3.50) K/uL [place] # (Auto) 0.66 (0.00-1.00) K/uL Eos # (Auto) 0.17 (0.00-0.50) K/uL Baso # (Auto) 0.06 (0.00-0.20) K/uL PT (9.8-11.7) SEC INR Sodium (136-145) mmol/L Potassium (3.5-5.1) mmol/L Chloride (98-107) mmol/L Carbon Dioxide (21.0-32.0) mmol/L BUN (7-18) mg/dL Creatinine (0.51-1.17) mg/dL Est Cr Clr Drug Dosing mL/min Estimated GFR (MDRD) mL/min Glucose (74-106) mg/dL Calcium (8.5-10.1) mg/dL Total Bilirubin (0.2-1.0) mg/dL AST (15-37) U/L ALT (12-78) U/L Alkaline Phosphatase (46-116) IU/L Troponin I 0.041 (0.000-0.056) ng/mL Total Protein (6.4-8.2) g/dL Albumin (3.4-5.0) g/dL Specimen Type Urinblad Urine Color Yellow Urine Appearance Clear Urine pH 5.0 (5.0-9.0) Ur Specific [place] 1.010 (1.005-1.030) Urine Protein Negative (NEGATIVE) mg/dL Urine Glucose (UA) Negative (NEGATIVE) mg/dL Urine Ketones Negative (NEGATIVE) mg/dL Urine Occult Blood Negative (NEGATIVE) Urine Nitrite Negative (NEGATIVE) Urine Bilirubin Negative (NEGATIVE) Urine Urobilinogen 0.2 (0.2-1.0) E.U./dL Ur Leukocyte Esterase Negative (NEGATIVE) Urine RBC Not seen /HPF Urine WBC 0-5 /HPF Ur Epithelial Cells Few /LPF Urine Bacteria Rare (NONE TO FEW) /HPF 12/06/16 12/06/16 Range/Units 07:20 07:20 WBC (4.0-10.2) K/uL RBC (3.77-5.09) M/uL Hgb (11.7-15.5) g/dL Hct (34.0-46.0) % MCV (84.0-98.0) fL MCH (28.2-33.3) pg MCHC (31.7-36.0) g/dL RDW (11.2-14.1) % Plt Count (150-350) K/uL Neut % (Auto) (45.0-80.0) % Lymph % (Auto) (10.0-50.0) % [place] % (Auto) (2.0-14.0) % Eos % (Auto) (0.0-5.0) % Baso % (Auto) (0.0-2.0) % Neut # (Auto) (1.40-7.00) K/uL Lymph # (Auto) (0.50-3.50) K/uL [place] # (Auto) (0.00-1.00) K/uL Eos # (Auto) (0.00-0.50) K/uL Baso # (Auto) (0.00-0.20) K/uL PT 19.4 H (9.8-11.7) SEC INR 1.8 Sodium 139 (136-145) mmol/L Potassium 4.0 (3.5-5.1) mmol/L Chloride 105 (98-107) mmol/L Carbon Dioxide 27.5 (21.0-32.0) mmol/L BUN 20 H (7-18) mg/dL Creatinine 0.89 (0.51-1.17) mg/dL Est Cr Clr Drug Dosing 38.73 mL/min Estimated GFR (MDRD) 60 mL/min Glucose 88 (74-106) mg/dL Calcium 8.3 L (8.5-10.1) mg/dL Total Bilirubin 0.3 (0.2-1.0) mg/dL AST 15 (15-37) U/L ALT 17 (12-78) U/L Alkaline Phosphatase 65 (46-116) IU/L Troponin I (0.000-0.056) ng/mL Total Protein 6.1 L (6.4-8.2) g/dL Albumin 2.9 L (3.4-5.0) g/dL Specimen Type Urine Color Urine Appearance Urine pH (5.0-9.0) Ur Specific [place] (1.005-1.030) Urine Protein (NEGATIVE) mg/dL Urine Glucose (UA) (NEGATIVE) mg/dL Urine Ketones (NEGATIVE) mg/dL Urine Occult Blood (NEGATIVE) Urine Nitrite (NEGATIVE) Urine Bilirubin (NEGATIVE) Urine Urobilinogen (0.2-1.0) E.U./dL Ur Leukocyte Esterase (NEGATIVE) Urine RBC /HPF Urine WBC /HPF Ur Epithelial Cells /LPF Urine Bacteria (NONE TO FEW) /HPF Med Orders - Current: Current Medications Acetaminophen (Tylenol) 650 mg PO Q4H PRN PRN Reason: Pain (Mild 1-3)/fever Acetaminophen (Tylenol Arthritis Pain) 650 mg PO Q8HR PRN PRN Reason: Pain Amlodipine Besylate (Norvasc) 2.5 mg PO Q12HR [facility] Doxazosin Mesylate (Cardura) 4 mg PO Q12HR [facility] Furosemide (Lasix) 20 mg PO DAILY [facility] Isosorbide Mononitrate (Imdur) 60 mg PO BEDTIME [facility] Last Admin: 12/05/16 20:27 Dose: 60 mg Ketotifen Fumarate (Ketotifen 0.025% Oph Soln) 1 ml EYEBOTH BEDTIME [facility] Last Admin: 12/05/16 20:29 Dose: 1 drop Levothyroxine Sodium (Synthroid) 50 mcg PO DAILY [facility] Last Admin: 12/06/16 07:33 Dose: 50 mcg Lorazepam (Ativan) 0.5 mg PO BEDTIME PRN PRN Reason: restlessness Losartan Potassium (Cozaar) 50 mg PO Q12HR [facility] Metoprolol Tartrate (Lopressor) 12.5 mg PO Q12HR [facility] Last Admin: 12/06/16 07:32 Dose: 12.5 mg Multivitamins/Minerals/Vitamin C (Tab-A-Rajat) 1 tab PO DAILY [facility] Last Admin: 12/06/16 07:31 Dose: 1 tab Nitroglycerin (Nitrostat) 0.4 mg SL Q5M PRN PRN Reason: Chest Pain Omeprazole (Omeprazole) 20 mg PO DAILY [facility] Last Admin: 12/06/16 07:35 Dose: 20 mg Prednisone (Prednisone) 5 mg PO ACBREAKFAST [facility] Last Admin: 12/06/16 07:33 Dose: 5 mg Sodium Chloride (Saline Flush) 10 ml FLUSH ASDIRECTED PRN PRN Reason: Keep Vein Open Last Admin: 12/06/16 07:35 Dose: 10 ml Warfarin Sodium (Coumadin) 1 mg PO SuMoTuThSa@1800 [facility] Warfarin Sodium (Coumadin) 2 mg PO WeFr@1800 [facility] Last Admin: 12/05/16 17:29 Dose: 2 mg Discontinued Medications Amlodipine Besylate (Norvasc) 2.5 mg PO BID [facility] Last Admin: 12/06/16 07:34 Dose: 2.5 mg Doxazosin Mesylate (Cardura) 4 mg PO BID [facility] Last Admin: 12/06/16 07:33 Dose: 4 mg Losartan Potassium (Cozaar) 50 mg PO DAILY [facility] Last Admin: 12/06/16 07:33 Dose: 50 mg - Exam General: alert, oriented, no acute distress HEENT: Pupils equal, Pupils reactive, EOMI, Mucous membr. moist/pink Neck: trachea midline, no JVD Lungs: Clear to auscultation, Normal respiratory effort Cardiovascular: Irregular Rhythm (PVCs) Abdomen: bowel sounds present, soft, no tenderness, no distension (Female) Exam: Deferred Back Exam: Other (kyphosis) Extremities: no edema, no calf tenderness Skin: warm, dry, intact Neurological: no new focal deficit Psy/Mental Status: alert, normal affect, normal mood - Problem List & Annotations (1) Pulmonary embolism on long-term anticoagulation therapy SNOMED Code(s): 427550536 Code(s): I26.99 - OTHER PULMONARY EMBOLISM WITHOUT ACUTE COR PULMONALE; Z79.01 - FRAME BENDER (CURRENT) USE OF ANTICOAGULANTS Status: Acute Priority: Medium Current Visit: Yes (2) Chest pain SNOMED Code(s): 46235901 Code(s): R07.9 - CHEST PAIN, UNSPECIFIED Status: Acute Priority: High Current Visit: Yes Qualifiers: Chest pain type: unspecified Qualified Code(s): R07.9 - Chest pain, unspecified (3) CHF (congestive heart failure) SNOMED Code(s): 99137514 Code(s): I50.9 - HEART FAILURE, UNSPECIFIED Status: Acute Priority: High Current Visit: No Onset Date: 10/01/16 Qualifiers: Congestive heart failure type: combined Congestive heart failure chronicity : acute on chronic Qualified Code(s): I50.43 - Acute on chronic combined systolic (congestive) and diastolic (congestive) heart failure (4) COPD (chronic obstructive pulmonary disease) SNOMED Code(s): 80396585 Code(s): J44.9 - CHRONIC OBSTRUCTIVE PULMONARY DISEASE, UNSPECIFIED Status : Acute Current Visit: No (5) Comfort measures only status SNOMED Code(s): 16487514056564 Code(s): Z51.5 - ENCOUNTER FOR PALLIATIVE CARE Status: Acute Priority: Medium Current Visit: No (6) Anxiety SNOMED Code(s): 12620826 Code(s): F41.9 - ANXIETY DISORDER, UNSPECIFIED Status: Acute Priority: Medium Current Visit: Yes (7) Hypothyroidism SNOMED Code(s): 02179319 Code(s): E03.9 - HYPOTHYROIDISM, UNSPECIFIED Status: Acute Priority: Medium Current Visit: Yes - Problem List Review Problem List Initiated/Reviewed/Updated: Yes - My Orders Last 24 Hours: My Active Orders 12/06/16 20:00 Doxazosin [Cardura] 4 mg PO Q12HR Losartan [Cozaar] 50 mg PO Q12HR amLODIPine [Norvasc] 2.5 mg PO Q12HR 12/07/16 05:11 CBC WITH AUTO DIFF [HEME] Routine CMP [COMPREHENSIVE METABOLIC PN,CMP] [CHEM] Routine CRP [C-REACTIVE PROTEIN] [CHEM] Routine INR,PT,PROTHROMBIN TIME [COAG] Routine MAGNESIUM [CHEM] Routine PRO B-TYPE NATRIUR PEPT,BNPPRO [CHEM] Routine TROPONIN I [CHEM] Routine TSH ULTRASENSITIVE [CHEM] Routine 12/07/16 08:00 Furosemide [Lasix] 20 mg PO DAILY - Plan Plan:: Patient is admitted to observation to Dr Blackman. On telemetry, recheck labs in the am, monitor blood pressures, and change amlodipine to 2.5mg twice a day. Patient was only taking at night, but now with elevated blood pressure will change the dose. Patient needing observation due to her BP 180/84, episode of chest pain and monitoring of heart rate. Yarelis Amezcua,STAFF DEVELOPMENT EDUCATOR 12/06/16 Yehuda Quintana MD Feels a little better. BP still high. Recent sinus infection. No chest pain today. PVCs noted. Continue observation status for monitoring BP, and heart rhythm.
[2016-12-06] MEDS: Ketotifen 0.025% Ophth Soln 5 ML Bottle EYEBOTH SCH (19:14)
[2016-12-06] MEDS: Isosorbide Mononitrate 60 MG Tab.ER PO SCH (19:19)
[2016-12-06] MEDS: Losartan 50 MG Tab PO SCH (19:19)
[2016-12-07] MEDS: Omeprazole 20 MG Cap.CR PO SCH (08:33)
[2016-12-07] MEDS: Doxazosin 4 MG Tab PO SCH ×2 (08:33→19:57)
[2016-12-07] MEDS: amLODIPine 5 MG Tab PO SCH ×2 (08:33→19:58)
[2016-12-07] MEDS: Multivitamin Tab PO SCH (08:34)
[2016-12-07] MEDS: Losartan 50 MG Tab PO SCH ×2 (08:34→19:58)
[2016-12-07] MEDS: predniSONE 5 MG Tab PO SCH (08:34)
[2016-12-07] MEDS: Metoprolol Tartrate 25 MG Tab PO SCH ×2 (08:34→19:59)
[2016-12-07] MEDS: Furosemide 20 MG Tab PO SCH (08:34)
[2016-12-07] MEDS: Levothyroxine 50 MCG Tab PO SCH (08:34)
[2016-12-07] MEDS ORDERED: Ciprofloxacin in D5W 400 MG in Premix Bag 1 BAG IV ONE ×4 (16:00→17:00)
--- NOTE | 2016-12-07 16:13 | PCM.PN ---
- General Info Date of Service: 12/07/16 Admission Dx/Problem (Free Text): Admission Diagnosis/Problem Admission Diagnosis/Problem Chest pain Functional Status: Reports: pain controlled, ambulating - Review of Systems General: Reports: No Symptoms HEENT: Reports: headaches, sinus congestion, other (funny feeling in her throat) Pulmonary: Reports: cough Cardiovascular: Reports: No Symptoms Gastrointestinal: Reports: No symptoms Genitourinary: Reports: no symptoms Musculoskeletal: Reports: hand pain, back pain Skin: Reports: no symptoms Neurological: Reports: Dizziness, Headache, Other (tremor) Psychiatric: Reports: anxiety - Patient Data Vitals - most recent: Last Vital Signs Temp 98 F 12/07/16 15:52 Pulse 69 12/07/16 15:52 Resp 20 12/07/16 15:52 BP 187/64 H 12/07/16 15:52 Pulse Ox 99 12/07/16 15:52 Weight - most recent: 168 lb 6.401 oz I&O - last 24 hours: Intake & Output 12/07/16 12/07/16 12/07/16 06:59 14:59 22:59 Intake Total 360 Output Total 500 Balance -500 360 Lab Results last 24 hrs: Laboratory Results - last 24 hr 12/07/16 12/07/16 12/07/16 Range/Units 06:55 06:55 06:55 WBC 7.9 (4.0-10.2) K/uL RBC 3.87 (3.77-5.09) M/uL Hgb 10.8 L (11.7-15.5) g/dL Hct 33.2 L (34.0-46.0) % MCV 85.8 (84.0-98.0) fL MCH 27.9 L (28.2-33.3) pg MCHC 32.5 (31.7-36.0) g/dL RDW 16.7 H (11.2-14.1) % Plt Count 230 (150-350) K/uL Neut % (Auto) 62.6 (45.0-80.0) % Lymph % (Auto) 26.8 (10.0-50.0) % [place] % (Auto) 7.8 (2.0-14.0) % Eos % (Auto) 2.3 (0.0-5.0) % Baso % (Auto) 0.5 (0.0-2.0) % Neut # (Auto) 4.96 (1.40-7.00) K/uL Lymph # (Auto) 2.12 (0.50-3.50) K/uL [place] # (Auto) 0.62 (0.00-1.00) K/uL Eos # (Auto) 0.18 (0.00-0.50) K/uL Baso # (Auto) 0.04 (0.00-0.20) K/uL PT 19.3 H (9.8-11.7) SEC INR 1.8 Sodium 139 (136-145) mmol/L Potassium 4.8 (3.5-5.1) mmol/L Chloride 105 (98-107) mmol/L Carbon Dioxide 28.9 (21.0-32.0) mmol/L BUN 24 H (7-18) mg/dL Creatinine 0.90 (0.51-1.17) mg/dL Est Cr Clr Drug Dosing 38.30 mL/min Estimated GFR (MDRD) 59 mL/min Glucose 89 (74-106) mg/dL Calcium 8.8 (8.5-10.1) mg/dL Magnesium 2.1 (1.8-2.4) mg/dL Total Bilirubin 0.3 (0.2-1.0) mg/dL AST 20 (15-37) U/L ALT 15 (12-78) U/L Alkaline Phosphatase 65 (46-116) IU/L Troponin I 0.031 (0.000-0.056) ng/mL C-Reactive Protein 0.0 (<=0.9) mg/dL Cgv-G-Atzakfrnivn Pept 1189 H (0-125) pg/mL Total Protein 6.4 (6.4-8.2) g/dL Albumin 3.0 L (3.4-5.0) g/dL TSH, Ultra Sensitive 2.407 (0.358-3.740) mIU/mL Med Orders - Current: Current Medications Acetaminophen (Tylenol) 650 mg PO Q4H PRN PRN Reason: Pain (Mild 1-3)/fever Acetaminophen (Tylenol Arthritis Pain) 650 mg PO Q8HR PRN PRN Reason: Pain Amlodipine Besylate (Norvasc) 2.5 mg PO Q12HR [facility] Last Admin: 12/07/16 08:33 Dose: 2.5 mg Doxazosin Mesylate (Cardura) 4 mg PO Q12HR [facility] Last Admin: 12/07/16 08:33 Dose: 4 mg Furosemide (Lasix) 20 mg PO DAILY [facility] Last Admin: 12/07/16 08:34 Dose: 20 mg Ciprofloxacin/Dextrose 400 mg/ (Premix) 200 mls @ 200 mls/hr IV ONETIME ONE Stop: 12/07/16 16:59 Metronidazole 500 mg/ Premix 100 mls @ 100 mls/hr IV Q8H [facility] Ciprofloxacin/Dextrose 200 mg/ (Premix) 100 mls @ 100 mls/hr IV DAILY [facility] Isosorbide Mononitrate (Imdur) 60 mg PO BEDTIME [facility] Last Admin: 12/06/16 19:19 Dose: 60 mg Ketotifen Fumarate (Ketotifen 0.025% Ophth Soln) 1 ml EYEBOTH BEDTIME [facility] Last Admin: 12/06/16 19:14 Dose: 1 drop Levothyroxine Sodium (Synthroid) 50 mcg PO DAILY [facility] Last Admin: 12/07/16 08:34 Dose: 50 mcg Lorazepam (Ativan) 0.5 mg PO Q12HR [facility] Losartan Potassium (Cozaar) 50 mg PO Q12HR [facility] Last Admin: 12/07/16 08:34 Dose: 50 mg Methylprednisolone Sodium Succinate (Solu-Medrol) 40 mg IVPUSH DAILY [facility] Metoprolol Tartrate (Lopressor) 12.5 mg PO Q12HR [facility] Last Admin: 12/07/16 08:34 Dose: 12.5 mg Multivitamins/Minerals/Vitamin C (Tab-A-Rajat) 1 tab PO DAILY [facility] Last Admin: 12/07/16 08:34 Dose: 1 tab Nitroglycerin (Nitrostat) 0.4 mg SL Q5M PRN PRN Reason: Chest Pain Omeprazole (Omeprazole) 20 mg PO DAILY [facility] Last Admin: 12/07/16 08:33 Dose: 20 mg Prednisone (Prednisone) 5 mg PO ACBREAKFAST [facility] Last Admin: 12/07/16 08:34 Dose: 5 mg Sodium Chloride (Saline Flush) 10 ml FLUSH ASDIRECTED PRN PRN Reason: Keep Vein Open Last Admin: 12/06/16 07:35 Dose: 10 ml Warfarin Sodium (Coumadin) 1 mg PO SuMoTuThSa@1800 [facility] Last Admin: 12/06/16 17:43 Dose: 1 mg Discontinued Medications Amlodipine Besylate (Norvasc) 2.5 mg PO BID [facility] Last Admin: 12/06/16 07:34 Dose: 2.5 mg Doxazosin Mesylate (Cardura) 4 mg PO BID [facility] Last Admin: 12/06/16 07:33 Dose: 4 mg Lorazepam (Ativan) 0.5 mg PO BEDTIME PRN PRN Reason: restlessness Last Admin: 12/07/16 09:06 Dose: 0.5 mg Losartan Potassium (Cozaar) 50 mg PO DAILY [facility] Last Admin: 12/06/16 07:33 Dose: 50 mg Warfarin Sodium (Coumadin) 2 mg PO WeFr@1800 [facility] Last Admin: 12/05/16 17:29 Dose: 2 mg - Exam Quality Assessment: DVT prophylaxis (coumadin) General: alert, cooperative, no acute distress HEENT: Pupils equal, Pupils reactive, EOMI, Mucous membr. moist/pink Neck: trachea midline, no JVD, no thyromegaly Lungs: Normal respiratory effort, Decreased breath sounds Cardiovascular: Irregular Rhythm Abdomen: bowel sounds present, soft, no tenderness, no distension (Female) Exam: Deferred Back Exam: Other (kyphosis) Extremities: no calf tenderness, edema (mild) Skin: warm, dry, intact Neurological: no new focal deficit Psy/Mental Status: alert, anxious - Problem List & Annotations (1) Pulmonary embolism on long-term anticoagulation therapy SNOMED Code(s): 962045214 Code(s): I26.99 - OTHER PULMONARY EMBOLISM WITHOUT ACUTE COR PULMONALE; Z79.01 - LONG-TERM (CURRENT) USE OF ANTICOAGULANTS Status: Acute Priority: Medium Current Visit: Yes (2) Chest pain SNOMED Code(s): 22649549 Code(s): R07.9 - CHEST PAIN, UNSPECIFIED Status: Acute Priority: High Current Visit: Yes Qualifiers: Chest pain type: unspecified Qualified Code(s): R07.9 - Chest pain, unspecified (3) CHF (congestive heart failure) SNOMED Code(s): 37444938 Code(s): I50.9 - HEART FAILURE, UNSPECIFIED Status: Acute Priority: High Current Visit: No Onset Date: 10/01/16 Qualifiers: Congestive heart failure type: combined Congestive heart failure chronicity : acute on chronic Qualified Code(s): I50.43 - Acute on chronic combined systolic (congestive) and diastolic (congestive) heart failure (4) COPD (chronic obstructive pulmonary disease) SNOMED Code(s): 61140565 Code(s): J44.9 - CHRONIC OBSTRUCTIVE PULMONARY DISEASE, UNSPECIFIED Status : Acute Current Visit: No (5) Comfort measures only status SNOMED Code(s): 01867283659240 Code(s): Z51.5 - ENCOUNTER FOR PALLIATIVE CARE Status: Acute Priority: Medium Current Visit: No (6) Anxiety SNOMED Code(s): 98448272 Code(s): F41.9 - ANXIETY DISORDER, UNSPECIFIED Status: Acute Priority: Medium Current Visit: Yes (7) Hypothyroidism SNOMED Code(s): 54333176 Code(s): E03.9 - HYPOTHYROIDISM, UNSPECIFIED Status: Acute Priority: Medium Current Visit: Yes (8) Acute sinusitis with symptoms > 10 days SNOMED Code(s): 41649656 Code(s): J01.90 - ACUTE SINUSITIS, UNSPECIFIED Status: Acute Priority: High Current Visit: Yes (9) COPD exacerbation SNOMED Code(s): 952323241, 427543749 Code(s): J44.1 - CHRONIC OBSTRUCTIVE PULMONARY DISEASE W (ACUTE) EXACERBATION Status: Acute Priority: High Current Visit: Yes (10) Hypertension, benign SNOMED Code(s): 51231729 Code(s): I10 - ESSENTIAL (PRIMARY) HYPERTENSION Status: Acute Priority: High Current Visit: Yes - Problem List Review Problem List Initiated/Reviewed/Updated: Yes - My Orders Last 24 Hours: My Active Orders 12/06/16 20:00 Doxazosin [Cardura] 4 mg PO Q12HR Losartan [Cozaar] 50 mg PO Q12HR amLODIPine [Norvasc] 2.5 mg PO Q12HR 12/07/16 08:00 Furosemide [Lasix] 20 mg PO DAILY 12/07/16 15:54 Admission Status [Patient Status] [ADT] Routine Cardiac Monitoring [RC] . DIRECTED 12/07/16 16:00 Ciprofloxacin in D5W [Cipro in D5W 400 MG/200 ML] 400 mg Premix Bag 1 bag IV ONETIME 12/07/16 16:15 methylPREDNISolone Sod Succ [Solu-MEDROL] 40 mg IVPUSH DAILY metroNIDAZOLE/Normal Saline [Flagyl 500 MG in NS 100 ML] 500 mg Premix Bag 1 bag IV Q8H 12/07/16 20:00 LORazepam [Ativan] 0.5 mg PO Q12HR 12/08/16 05:11 CBC WITH AUTO DIFF [HEME] DAILY CMP [COMPREHENSIVE METABOLIC PN,CMP] [CHEM] DAILY INR,PT,PROTHROMBIN TIME [COAG] DAILY PRO B-TYPE NATRIUR PEPT,BNPPRO [CHEM] DAILY PTT,PARTIAL THROMBOPLSTIN TIME [COAG] Routine SEDIMENTATION RATE MANUAL [HEME] Routine 12/08/16 08:00 Ciprofloxacin in D5W [Cipro in D5W 200 MG/100 ML] 200 mg Premix Bag 1 bag IV DAILY 12/09/16 05:11 CBC WITH AUTO DIFF [HEME] DAILY CMP [COMPREHENSIVE METABOLIC PN,CMP] [CHEM] DAILY INR,PT,PROTHROMBIN TIME [COAG] DAILY PRO B-TYPE NATRIUR PEPT,BNPPRO [CHEM] DAILY 12/10/16 05:11 CBC WITH AUTO DIFF [HEME] DAILY CMP [COMPREHENSIVE METABOLIC PN,CMP] [CHEM] DAILY INR,PT,PROTHROMBIN TIME [COAG] DAILY PRO B-TYPE NATRIUR PEPT,BNPPRO [CHEM] DAILY - Plan Plan:: Patient is admitted to observation to Dr Blackman. On telemetry, recheck labs in the am, monitor blood pressures, and change amlodipine to 2.5mg twice a day. Patient was only taking at night, but now with elevated blood pressure will change the dose. Patient needing observation due to her BP 180/84, episode of chest pain and monitoring of heart rate. Yarelis Amezcua,[employer] 12/06/16 Yehuda Quintana MD Feels a little better. BP still high. Recent sinus infection. No chest pain today. PVCs noted. Continue observation status for monitoring BP, and heart rhythm. 12/07/16 Yehuda Quintana MD Not feeling well this AM. Head pressure, shaking, and blood pressure elevation. Recent treatment for sinusitous. Change to inpatient status is medically justified for diagnosis acute sinusitous, COPD exacerbation, labile HTN. Start IV antibiotics, IV solumedrol, blood pressure medications have been adjusted. Monitor blood pressure and labs.
[2016-12-07] MEDS: methylPREDNISolone Sodium Succinate 40 MG/1 ML SDV IVPUSH SCH (16:23)
[2016-12-07] MEDS: metroNIDAZOLE/Normal Saline 500 MG in Premix Bag 1 BAG IV SCH (16:23)
[2016-12-07] MEDS: Sodium Chloride 0.9% 10 ML Syringe FLUSH PRN ×2 (16:23→17:28)
[2016-12-07] MEDS: LORazepam 0.5 MG Tab PO SCH (19:57)
[2016-12-07] MEDS: Isosorbide Mononitrate 60 MG Tab.ER PO SCH (19:57)
[2016-12-07] MEDS: Ketotifen 0.025% Ophth Soln 5 ML Bottle EYEBOTH SCH (20:02)
[2016-12-08] MEDS: metroNIDAZOLE/Normal Saline 500 MG in Premix Bag 1 BAG IV SCH ×4 (00:05→23:40)
[2016-12-08] MEDS: Sodium Chloride 0.9% 10 ML Syringe FLUSH PRN ×5 (00:06→17:36)
[2016-12-08] MEDS: predniSONE 5 MG Tab PO SCH (07:13)
[2016-12-08] MEDS: LORazepam 0.5 MG Tab PO SCH ×2 (07:14→21:45)
[2016-12-08] MEDS: Doxazosin 4 MG Tab PO SCH ×2 (07:18→21:45)
[2016-12-08] MEDS: Losartan 50 MG Tab PO SCH ×2 (07:19→21:45)
[2016-12-08] MEDS: Furosemide 20 MG Tab PO SCH (07:20)
[2016-12-08] MEDS: Metoprolol Tartrate 25 MG Tab PO SCH ×2 (07:20→21:45)
[2016-12-08] MEDS: amLODIPine 5 MG Tab PO SCH ×2 (07:22→21:45)
[2016-12-08] MEDS: Levothyroxine 50 MCG Tab PO SCH (07:23)
[2016-12-08] MEDS: Omeprazole 20 MG Cap.CR PO SCH (07:23)
[2016-12-08] MEDS: Multivitamin Tab PO SCH (07:24)
[2016-12-08] MEDS: methylPREDNISolone Sodium Succinate 40 MG/1 ML SDV IVPUSH SCH (07:32)
[2016-12-08] MEDS ORDERED: Ciprofloxacin in D5W 200 MG in Premix Bag 1 BAG IV SCH ×2 (17:00)
--- NOTE | 2016-12-08 18:43 | PCM.PN ---
- General Info Date of Service: 12/08/16 Admission Dx/Problem (Free Text): Admission Diagnosis/Problem Admission Diagnosis/Problem Chest pain Functional Status: Reports: pain controlled - Review of Systems General: Reports: No Symptoms HEENT: Reports: headaches (improving) Pulmonary: Reports: cough (improving) Cardiovascular: Reports: No Symptoms Gastrointestinal: Reports: No symptoms Genitourinary: Reports: no symptoms Musculoskeletal: Reports: hand pain (improved), back pain (improved) Skin: Reports: no symptoms Neurological: Reports: Other (no shakiness) Psychiatric: Reports: no symptoms, other (slept better last night) - Patient Data Vitals - most recent: Last Vital Signs Temp 99.3 F 12/08/16 16:00 Pulse 79 12/08/16 16:00 Resp 16 12/08/16 16:00 BP 146/60 H 12/08/16 16:00 Pulse Ox 79 L 12/08/16 16:00 Weight - most recent: 168 lb 6.401 oz I&O - last 24 hours: Intake & Output 12/08/16 12/08/16 12/08/16 06:59 14:59 22:59 Intake Total 1525 200 Output Total 1000 400 450 Balance -1000 1125 -250 Lab Results last 24 hrs: Laboratory Results - last 24 hr 12/08/16 12/08/16 12/08/16 Range/Units 07:05 07:05 07:05 WBC 11.2 H (4.0-10.2) K/uL RBC 3.62 L (3.77-5.09) M/uL Hgb 10.1 L (11.7-15.5) g/dL Hct 30.4 L (34.0-46.0) % MCV 84.0 (84.0-98.0) fL MCH 27.9 L (28.2-33.3) pg MCHC 33.2 (31.7-36.0) g/dL RDW 16.2 H (11.2-14.1) % Plt Count 298 (150-350) K/uL Neut % (Auto) 86.5 H (45.0-80.0) % Lymph % (Auto) 8.7 L (10.0-50.0) % [place] % (Auto) 4.5 (2.0-14.0) % Eos % (Auto) 0.1 (0.0-5.0) % Baso % (Auto) 0.2 (0.0-2.0) % Neut # (Auto) 9.66 H (1.40-7.00) K/uL Lymph # (Auto) 0.97 (0.50-3.50) K/uL [place] # (Auto) 0.50 (0.00-1.00) K/uL Eos # (Auto) 0.01 (0.00-0.50) K/uL Baso # (Auto) 0.02 (0.00-0.20) K/uL ESR 14 (0-42) mm/hr PT 16.4 H (9.8-11.7) SEC INR 1.5 APTT 29.6 (23.5-30.0) SEC Sodium 137 (136-145) mmol/L Potassium 4.5 (3.5-5.1) mmol/L Chloride 102 (98-107) mmol/L Carbon Dioxide 25.8 (21.0-32.0) mmol/L BUN 31 H (7-18) mg/dL Creatinine 0.90 (0.51-1.17) mg/dL Est Cr Clr Drug Dosing 38.30 mL/min Estimated GFR (MDRD) 59 mL/min Glucose 108 H (74-106) mg/dL Calcium 8.6 (8.5-10.1) mg/dL Total Bilirubin 0.3 (0.2-1.0) mg/dL AST 17 (15-37) U/L ALT 20 (12-78) U/L Alkaline Phosphatase 66 (46-116) IU/L Yvd-W-Tytvcavpkal Pept 1281 H (0-125) pg/mL Total Protein 6.3 L (6.4-8.2) g/dL Albumin 3.0 L (3.4-5.0) g/dL Med Orders - Current: Current Medications Acetaminophen (Tylenol) 650 mg PO Q4H PRN PRN Reason: Pain (Mild 1-3)/fever Acetaminophen (Tylenol Arthritis Pain) 650 mg PO Q8HR PRN PRN Reason: Pain Amlodipine Besylate (Norvasc) 2.5 mg PO Q12HR [facility] Last Admin: 12/08/16 07:22 Dose: 2.5 mg Doxazosin Mesylate (Cardura) 4 mg PO Q12HR [facility] Last Admin: 12/08/16 07:18 Dose: 4 mg Furosemide (Lasix) 20 mg PO DAILY [facility] Last Admin: 12/08/16 07:20 Dose: 20 mg Metronidazole 500 mg/ Premix 100 mls @ 100 mls/hr IV Q8H [facility] Last Admin: 12/08/16 16:22 Dose: 100 mls/hr Ciprofloxacin/Dextrose 200 mg/ (Premix) 100 mls @ 100 mls/hr IV DAILY@1700 [facility] Last Admin: 12/08/16 17:38 Dose: 100 mls/hr Isosorbide Mononitrate (Imdur) 60 mg PO BEDTIME [facility] Last Admin: 12/07/16 19:57 Dose: 60 mg Ketotifen Fumarate (Ketotifen 0.025% [facility] Soln) 1 ml EYEBOTH BEDTIME [facility] Last Admin: 12/07/16 20:02 Dose: 1 drop Levothyroxine Sodium (Synthroid) 50 mcg PO DAILY [facility] Last Admin: 12/08/16 07:23 Dose: 50 mcg Lorazepam (Ativan) 0.5 mg PO Q12HR [facility] Last Admin: 12/08/16 07:14 Dose: 0.5 mg Losartan Potassium (Cozaar) 50 mg PO Q12HR [facility] Last Admin: 12/08/16 07:19 Dose: 50 mg Methylprednisolone Sodium Succinate (Solu-Medrol) 40 mg IVPUSH DAILY [facility] Last Admin: 12/08/16 07:32 Dose: 40 mg Metoprolol Tartrate (Lopressor) 12.5 mg PO Q12HR [facility] Last Admin: 12/08/16 07:20 Dose: 12.5 mg Multivitamins/Minerals/Vitamin C (Tab-A-Rajat) 1 tab PO DAILY [facility] Last Admin: 12/08/16 07:24 Dose: 1 tab Nitroglycerin (Nitrostat) 0.4 mg SL Q5M PRN PRN Reason: Chest Pain Omeprazole (Omeprazole) 20 mg PO DAILY [facility] Last Admin: 12/08/16 07:23 Dose: 20 mg Prednisone (Prednisone) 5 mg PO ACBREAKFAST [facility] Last Admin: 12/08/16 07:13 Dose: 5 mg Sodium Chloride (Saline Flush) 10 ml FLUSH ASDIRECTED PRN PRN Reason: Keep Vein Open Last Admin: 12/08/16 17:36 Dose: 10 ml Warfarin Sodium (Coumadin) 1 mg PO SuMoTuThSa@1800 [facility] Last Admin: 12/08/16 17:48 Dose: 1 mg Discontinued Medications Amlodipine Besylate (Norvasc) 2.5 mg PO BID [facility] Last Admin: 12/06/16 07:34 Dose: 2.5 mg Doxazosin Mesylate (Cardura) 4 mg PO BID [facility] Last Admin: 12/06/16 07:33 Dose: 4 mg Ciprofloxacin/Dextrose 400 mg/ (Premix) 200 mls @ 200 mls/hr IV ONETIME ONE Stop: 12/07/16 16:59 Last Admin: 12/07/16 17:03 Dose: Not Given Ciprofloxacin/Dextrose 400 mg/ (Premix) 200 mls @ 200 mls/hr IV ONETIME ONE Stop: 12/07/16 17:59 Last Admin: 12/07/16 17:28 Dose: 200 mls/hr Lorazepam (Ativan) 0.5 mg PO BEDTIME PRN PRN Reason: restlessness Last Admin: 12/07/16 09:06 Dose: 0.5 mg Losartan Potassium (Cozaar) 50 mg PO DAILY [facility] Last Admin: 12/06/16 07:33 Dose: 50 mg Warfarin Sodium (Coumadin) 2 mg PO WeFr@1800 [facility] Last Admin: 12/05/16 17:29 Dose: 2 mg - Exam Quality Assessment: DVT prophylaxis General: alert, cooperative, no acute distress HEENT: Pupils equal, Pupils reactive, EOMI, Mucous membr. moist/pink Neck: trachea midline, no JVD Lungs: Normal respiratory effort, Decreased breath sounds Cardiovascular: Irregular Rhythm Abdomen: bowel sounds present, soft, no tenderness, no distension (Female) Exam: Deferred Back Exam: Other (kyphosis) Extremities: no edema, no calf tenderness Skin: warm, dry, intact Neurological: no new focal deficit Psy/Mental Status: alert, normal affect, normal mood - Problem List & Annotations (1) Pulmonary embolism on long-term anticoagulation therapy SNOMED Code(s): 756975180 Code(s): I26.99 - OTHER PULMONARY EMBOLISM WITHOUT ACUTE COR PULMONALE; Z79.01 - CARE HOME (CURRENT) USE OF ANTICOAGULANTS Status: Acute Priority: Medium Current Visit: Yes (2) Chest pain SNOMED Code(s): 83449670 Code(s): R07.9 - CHEST PAIN, UNSPECIFIED Status: Acute Priority: High Current Visit: Yes Qualifiers: Chest pain type: unspecified Qualified Code(s): R07.9 - Chest pain, unspecified (3) CHF (congestive heart failure) SNOMED Code(s): 41264036 Code(s): I50.9 - HEART FAILURE, UNSPECIFIED Status: Acute Priority: High Current Visit: No Onset Date: 10/01/16 Qualifiers: Congestive heart failure type: combined Congestive heart failure chronicity : acute on chronic Qualified Code(s): I50.43 - Acute on chronic combined systolic (congestive) and diastolic (congestive) heart failure (4) COPD (chronic obstructive pulmonary disease) SNOMED Code(s): 44955910 Code(s): J44.9 - CHRONIC OBSTRUCTIVE PULMONARY DISEASE, UNSPECIFIED Status : Acute Current Visit: No (5) Comfort measures only status SNOMED Code(s): 56628164058999 Code(s): Z51.5 - ENCOUNTER FOR PALLIATIVE CARE Status: Acute Priority: Medium Current Visit: No (6) Anxiety SNOMED Code(s): 54519384 Code(s): F41.9 - ANXIETY DISORDER, UNSPECIFIED Status: Acute Priority: Medium Current Visit: Yes (7) Hypothyroidism SNOMED Code(s): 89700620 Code(s): E03.9 - HYPOTHYROIDISM, UNSPECIFIED Status: Acute Priority: Medium Current Visit: Yes (8) Acute sinusitis with symptoms > 10 days SNOMED Code(s): 96013530 Code(s): J01.90 - ACUTE SINUSITIS, UNSPECIFIED Status: Acute Priority: High Current Visit: Yes (9) COPD exacerbation SNOMED Code(s): 858771524, 236104045 Code(s): J44.1 - CHRONIC OBSTRUCTIVE PULMONARY DISEASE W (ACUTE) EXACERBATION Status: Acute Priority: High Current Visit: Yes (10) Hypertension, benign SNOMED Code(s): 68258816 Code(s): I10 - ESSENTIAL (PRIMARY) HYPERTENSION Status: Acute Priority: High Current Visit: Yes - Problem List Review Problem List Initiated/Reviewed/Updated: Yes - My Orders Last 24 Hours: My Active Orders 12/07/16 20:00 LORazepam [Ativan] 0.5 mg PO Q12HR 12/08/16 17:00 Ciprofloxacin in D5W [Cipro in D5W 200 MG/100 ML] 200 mg Premix Bag 1 bag IV DAILY@1700 12/09/16 05:11 CBC WITH AUTO DIFF [HEME] DAILY CMP [COMPREHENSIVE METABOLIC PN,CMP] [CHEM] DAILY INR,PT,PROTHROMBIN TIME [COAG] DAILY PRO B-TYPE NATRIUR PEPT,BNPPRO [CHEM] DAILY 12/10/16 05:11 CBC WITH AUTO DIFF [HEME] DAILY CMP [COMPREHENSIVE METABOLIC PN,CMP] [CHEM] DAILY INR,PT,PROTHROMBIN TIME [COAG] DAILY PRO B-TYPE NATRIUR PEPT,BNPPRO [CHEM] DAILY - Plan Plan:: Patient is admitted to observation to Dr Blackman. On telemetry, recheck labs in the am, monitor blood pressures, and change amlodipine to 2.5mg twice a day. Patient was only taking at night, but now with elevated blood pressure will change the dose. Patient needing observation due to her BP 180/84, episode of chest pain and monitoring of heart rate. Yarelis Amezcua,[employer] 12/06/16 Yehuda Quintana MD Feels a little better. BP still high. Recent sinus infection. No chest pain today. PVCs noted. Continue observation status for monitoring BP, and heart rhythm. 12/07/16 Yehuda Quintana MD Not feeling well this AM. Head pressure, shaking, and blood pressure elevation. Recent treatment for sinusitous. Change to inpatient status is medically justified for diagnosis acute sinusitous, COPD exacerbation, labile HTN. Start IV antibiotics, IV solumedrol, blood pressure medications have been adjusted. Monitor blood pressure and labs. 12/08/16 Yehuda Quintana MD Feels better. Less headache, less head pressure. Cough improved. Back pain improved and hand pain improved. No shakes today. Blood pressure still labile. Continue IV antibiotics and IV solumedrol and BP monitoring. Telemetry PVCs but stable.
[2016-12-08] MEDS: Isosorbide Mononitrate 60 MG Tab.ER PO SCH (21:45)
[2016-12-08] MEDS: Ketotifen 0.025% Ophth Soln 5 ML Bottle EYEBOTH SCH (21:45)
[2016-12-09] MEDS: metroNIDAZOLE/Normal Saline 500 MG in Premix Bag 1 BAG IV SCH (08:43)
[2016-12-09] MEDS: Doxazosin 4 MG Tab PO SCH (08:44)
[2016-12-09] MEDS: Furosemide 20 MG Tab PO SCH (08:44)
[2016-12-09] MEDS: Levothyroxine 50 MCG Tab PO SCH (08:44)
[2016-12-09] MEDS: Omeprazole 20 MG Cap.CR PO SCH (08:44)
[2016-12-09] MEDS: Metoprolol Tartrate 25 MG Tab PO SCH (08:44)
[2016-12-09] MEDS: Multivitamin Tab PO SCH (08:44)
[2016-12-09] MEDS: Losartan 50 MG Tab PO SCH (08:44)
[2016-12-09] MEDS: amLODIPine 5 MG Tab PO SCH (08:45)
[2016-12-09] MEDS: methylPREDNISolone Sodium Succinate 40 MG/1 ML SDV IVPUSH SCH (08:45)
[2016-12-09] MEDS: LORazepam 0.5 MG Tab PO SCH (08:45)
[2016-12-09] MEDS: Sodium Chloride 0.9% 10 ML Syringe FLUSH PRN (08:45)
[2016-12-09 13:13] VITALS: BP 144/70
--- NOTE | 2016-12-09 13:39 | PCM.PN ---
- General Info Date of Service: 12/09/16 Admission Dx/Problem (Free Text): Admission Diagnosis/Problem Admission Diagnosis/Problem Chest pain Functional Status: Reports: pain controlled, tolerating diet, ambulating - Review of Systems General: Reports: No Symptoms HEENT: Reports: no symptoms Pulmonary: Reports: no symptoms Cardiovascular: Reports: No Symptoms Gastrointestinal: Reports: No symptoms Genitourinary: Reports: no symptoms Musculoskeletal: Reports: no symptoms Skin: Reports: no symptoms Neurological: Reports: No Symptoms Psychiatric: Reports: no symptoms - Patient Data Vitals - most recent: Last Vital Signs Temp 97.7 F 12/09/16 12:00 Pulse 68 12/09/16 12:00 Resp 16 12/09/16 12:00 BP 144/70 H 12/09/16 12:00 Pulse Ox 97 12/09/16 12:00 Weight - most recent: 168 lb 6.401 oz I&O - last 24 hours: Intake & Output 12/08/16 12/09/16 12/09/16 22:59 06:59 14:59 Intake Total 500 250 Output Total 675 1000 Balance -175 -1000 250 Lab Results last 24 hrs: Laboratory Results - last 24 hr 12/09/16 12/09/16 12/09/16 Range/Units 07:06 07:06 07:06 WBC 9.8 (4.0-10.2) K/uL RBC 3.51 L (3.77-5.09) M/uL Hgb 9.6 L (11.7-15.5) g/dL Hct 29.5 L (34.0-46.0) % MCV 84.0 (84.0-98.0) fL MCH 27.4 L (28.2-33.3) pg MCHC 32.5 (31.7-36.0) g/dL RDW 16.4 H (11.2-14.1) % Plt Count 247 (150-350) K/uL Neut % (Auto) 74.7 (45.0-80.0) % Lymph % (Auto) 16.9 (10.0-50.0) % [place] % (Auto) 7.6 (2.0-14.0) % Eos % (Auto) 0.5 (0.0-5.0) % Baso % (Auto) 0.3 (0.0-2.0) % Neut # (Auto) 7.34 H (1.40-7.00) K/uL Lymph # (Auto) 1.66 (0.50-3.50) K/uL [place] # (Auto) 0.75 (0.00-1.00) K/uL Eos # (Auto) 0.05 (0.00-0.50) K/uL Baso # (Auto) 0.03 (0.00-0.20) K/uL PT 17.8 H (9.8-11.7) SEC INR 1.6 Sodium 137 (136-145) mmol/L Potassium 4.3 (3.5-5.1) mmol/L Chloride 104 (98-107) mmol/L Carbon Dioxide 26.1 (21.0-32.0) mmol/L BUN 34 H (7-18) mg/dL Creatinine 0.96 (0.51-1.17) mg/dL Est Cr Clr Drug Dosing 35.91 mL/min Estimated GFR (MDRD) 55 mL/min Glucose 94 (74-106) mg/dL Calcium 8.2 L (8.5-10.1) mg/dL Total Bilirubin 0.2 (0.2-1.0) mg/dL AST 15 (15-37) U/L ALT 17 (12-78) U/L Alkaline Phosphatase 57 (46-116) IU/L Trv-C-Oclonfjuzyp Pept 1364 H (0-125) pg/mL Total Protein 5.8 L (6.4-8.2) g/dL Albumin 2.8 L (3.4-5.0) g/dL Med Orders - Current: Current Medications Acetaminophen (Tylenol) 650 mg PO Q4H PRN PRN Reason: Pain (Mild 1-3)/fever Acetaminophen (Tylenol Arthritis Pain) 650 mg PO Q8HR PRN PRN Reason: Pain Amlodipine Besylate (Norvasc) 2.5 mg PO Q12HR [facility] Last Admin: 12/09/16 08:45 Dose: 2.5 mg Doxazosin Mesylate (Cardura) 4 mg PO Q12HR [facility] Last Admin: 12/09/16 08:44 Dose: 4 mg Furosemide (Lasix) 20 mg PO DAILY [facility] Last Admin: 12/09/16 08:44 Dose: 20 mg Metronidazole 500 mg/ Premix 100 mls @ 100 mls/hr IV Q8H [facility] Last Admin: 12/09/16 08:43 Dose: 100 mls/hr Isosorbide Mononitrate (Imdur) 60 mg PO BEDTIME [facility] Last Admin: 12/08/16 21:45 Dose: 60 mg Ketotifen Fumarate (Ketotifen 0.025% Ophth Soln) 1 ml EYEBOTH BEDTIME [facility] Last Admin: 12/08/16 21:45 Dose: 1 drop Levothyroxine Sodium (Synthroid) 50 mcg PO DAILY [facility] Last Admin: 12/09/16 08:44 Dose: 50 mcg Lorazepam (Ativan) 0.5 mg PO Q12HR [facility] Last Admin: 12/09/16 08:45 Dose: 0.5 mg Losartan Potassium (Cozaar) 50 mg PO Q12HR [facility] Last Admin: 12/09/16 08:44 Dose: 50 mg Methylprednisolone Sodium Succinate (Solu-Medrol) 40 mg IVPUSH DAILY [facility] Last Admin: 12/09/16 08:45 Dose: 40 mg Metoprolol Tartrate (Lopressor) 12.5 mg PO Q12HR [facility] Last Admin: 12/09/16 08:44 Dose: 12.5 mg Multivitamins/Minerals/Vitamin C (Tab-A-Rajat) 1 tab PO DAILY [facility] Last Admin: 12/09/16 08:44 Dose: 1 tab Nitroglycerin (Nitrostat) 0.4 mg SL Q5M PRN PRN Reason: Chest Pain Omeprazole (Omeprazole) 20 mg PO DAILY [facility] Last Admin: 12/09/16 08:44 Dose: 20 mg Sodium Chloride (Saline Flush) 10 ml FLUSH ASDIRECTED PRN PRN Reason: Keep Vein Open Last Admin: 12/09/16 08:45 Dose: 10 ml Warfarin Sodium (Coumadin) 1 mg PO SuMoTuThSa@1800 [facility] Last Admin: 12/08/16 17:48 Dose: 1 mg Discontinued Medications Amlodipine Besylate (Norvasc) 2.5 mg PO BID [facility] Last Admin: 12/06/16 07:34 Dose: 2.5 mg Doxazosin Mesylate (Cardura) 4 mg PO BID [facility] Last Admin: 12/06/16 07:33 Dose: 4 mg Ciprofloxacin/Dextrose 400 mg/ (Premix) 200 mls @ 200 mls/hr IV ONETIME ONE Stop: 12/07/16 16:59 Last Admin: 12/07/16 17:03 Dose: Not Given Ciprofloxacin/Dextrose 200 mg/ (Premix) 100 mls @ 100 mls/hr IV DAILY@1700 [facility] Last Admin: 12/08/16 17:38 Dose: 100 mls/hr Ciprofloxacin/Dextrose 400 mg/ (Premix) 200 mls @ 200 mls/hr IV ONETIME ONE Stop: 12/07/16 17:59 Last Admin: 12/07/16 17:28 Dose: 200 mls/hr Lorazepam (Ativan) 0.5 mg PO BEDTIME PRN PRN Reason: restlessness Last Admin: 12/07/16 09:06 Dose: 0.5 mg Losartan Potassium (Cozaar) 50 mg PO DAILY [facility] Last Admin: 12/06/16 07:33 Dose: 50 mg Prednisone (Prednisone) 5 mg PO ACBREAKFAST [facility] Last Admin: 12/08/16 07:13 Dose: 5 mg Warfarin Sodium (Coumadin) 2 mg PO WeFr@1800 [facility] Last Admin: 12/05/16 17:29 Dose: 2 mg - Exam Quality Assessment: DVT prophylaxis General: alert, cooperative, no acute distress HEENT: Pupils equal, Pupils reactive, EOMI, Mucous membr. moist/pink Neck: trachea midline, no JVD Lungs: Clear to auscultation, Normal respiratory effort Cardiovascular: Irregular Rhythm GI/Abdominal Exam: Normal Bowel Sounds, Soft, Non-Tender, No Organomegaly, No Distention, No Abnormal Bruit, No Mass, Pelvis Stable (Female) Exam: Deferred Back Exam: Other (kyphosis) Extremities: Normal Inspection, Normal Range of Motion, Non-Tender, No Pedal Edema Skin: warm, dry, intact Neurological: no new focal deficit Psy/Mental Status: alert, normal affect, normal mood - Problem List & Annotations (1) Pulmonary embolism on long-term anticoagulation therapy SNOMED Code(s): 389664555 Code(s): I26.99 - OTHER PULMONARY EMBOLISM WITHOUT ACUTE COR PULMONALE; Z79.01 - LONG-TERM (CURRENT) USE OF ANTICOAGULANTS Status: Acute Priority: Medium Current Visit: Yes (2) Chest pain SNOMED Code(s): 95874455 Code(s): R07.9 - CHEST PAIN, UNSPECIFIED Status: Acute Priority: High Current Visit: Yes Qualifiers: Chest pain type: unspecified Qualified Code(s): R07.9 - Chest pain, unspecified (3) CHF (congestive heart failure) SNOMED Code(s): 62635089 Code(s): I50.9 - HEART FAILURE, UNSPECIFIED Status: Acute Priority: High Current Visit: No Onset Date: 10/01/16 Qualifiers: Congestive heart failure type: combined Congestive heart failure chronicity : acute on chronic Qualified Code(s): I50.43 - Acute on chronic combined systolic (congestive) and diastolic (congestive) heart failure (4) COPD (chronic obstructive pulmonary disease) SNOMED Code(s): 59684501 Code(s): J44.9 - CHRONIC OBSTRUCTIVE PULMONARY DISEASE, UNSPECIFIED Status : Acute Current Visit: No (5) Comfort measures only status SNOMED Code(s): 29820647150247 Code(s): Z51.5 - ENCOUNTER FOR PALLIATIVE CARE Status: Acute Priority: Medium Current Visit: No (6) Anxiety SNOMED Code(s): 50047231 Code(s): F41.9 - ANXIETY DISORDER, UNSPECIFIED Status: Acute Priority: Medium Current Visit: Yes (7) Hypothyroidism SNOMED Code(s): 84109548 Code(s): E03.9 - HYPOTHYROIDISM, UNSPECIFIED Status: Acute Priority: Medium Current Visit: Yes (8) Acute sinusitis with symptoms > 10 days SNOMED Code(s): 87871465 Code(s): J01.90 - ACUTE SINUSITIS, UNSPECIFIED Status: Acute Priority: High Current Visit: Yes (9) COPD exacerbation SNOMED Code(s): 762917217, 089989153 Code(s): J44.1 - CHRONIC OBSTRUCTIVE PULMONARY DISEASE W (ACUTE) EXACERBATION Status: Acute Priority: High Current Visit: Yes (10) Hypertension, benign SNOMED Code(s): 19849034 Code(s): I10 - ESSENTIAL (PRIMARY) HYPERTENSION Status: Acute Priority: High Current Visit: Yes - Problem List Review Problem List Initiated/Reviewed/Updated: Yes - My Orders Last 24 Hours: My Active Orders 12/10/16 05:11 CBC WITH AUTO DIFF [HEME] DAILY CMP [COMPREHENSIVE METABOLIC PN,CMP] [CHEM] DAILY INR,PT,PROTHROMBIN TIME [COAG] DAILY PRO B-TYPE NATRIUR PEPT,BNPPRO [CHEM] DAILY - Plan Plan:: Patient is admitted to observation to Dr Blackman. On telemetry, recheck labs in the am, monitor blood pressures, and change amlodipine to 2.5mg twice a day. Patient was only taking at night, but now with elevated blood pressure will change the dose. Patient needing observation due to her BP 180/84, episode of chest pain and monitoring of heart rate. 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 BP still high. Recent sinus infection. No chest pain today. PVCs noted. Continue observation status for monitoring BP, and heart rhythm. 12/07/16 Yehuda uQintana MD Not feeling well this AM. Head pressure, shaking, and blood pressure elevation. Recent treatment for sinusitous. Change to inpatient status is medically justified for diagnosis acute sinusitous, COPD exacerbation, labile HTN. Start IV antibiotics, IV solumedrol, blood pressure medications have been adjusted. Monitor blood pressure and labs. 12/08/16 Yehuda Quintana MD Feels better. Less headache, less head pressure. Cough improved. Back pain improved and hand pain improved. No shakes today. Blood pressure still labile. Continue IV antibiotics and IV solumedrol and BP monitoring. Telemetry PVCs but stable. 12/09/16 Yehuda Quintana MD Continues to feel better. Blood pressure improved. Stable for discharge. She agrees to home health consult.
--- NOTE | 2016-12-09 14:07 | PCM.DCSUM1 ---
Discharge Summary - Discharge Data Discharge Date: 12/09/16 Discharge Disposition: Home, W Home Health Agency 06 Condition: Good - Discharge Diagnosis/Problem(s) (1) Pulmonary embolism on long-term anticoagulation therapy SNOMED Code(s): 077879747 ICD Code: I26.99 - OTHER PULMONARY EMBOLISM WITHOUT ACUTE COR PULMONALE; Z79.01 - RESEARCH INVESTIGATOR (CURRENT) USE OF ANTICOAGULANTS Status: Acute Priority: Medium Current Visit: Yes (2) Chest pain SNOMED Code(s): 25103326 ICD Code: R07.9 - CHEST PAIN, UNSPECIFIED Status: Acute Priority: High Current Visit: Yes Qualifiers: Chest pain type: unspecified Qualified Code(s): R07.9 - Chest pain, unspecified (3) CHF (congestive heart failure) SNOMED Code(s): 08946907 ICD Code: I50.9 - HEART FAILURE, UNSPECIFIED Status: Acute Priority: High Current Visit: No Onset Date: 10/01/16 Qualifiers: Congestive heart failure type: combined Congestive heart failure chronicity : acute on chronic Qualified Code(s): I50.43 - Acute on chronic combined systolic (congestive) and diastolic (congestive) heart failure (4) COPD (chronic obstructive pulmonary disease) SNOMED Code(s): 43241546 ICD Code: J44.9 - CHRONIC OBSTRUCTIVE PULMONARY DISEASE, UNSPECIFIED Status : Acute Current Visit: No (5) Comfort measures only status SNOMED Code(s): 71714677477954 ICD Code: Z51.5 - ENCOUNTER FOR PALLIATIVE CARE Status: Acute Priority: Medium Current Visit: No (6) Anxiety SNOMED Code(s): 98996545 ICD Code: F41.9 - ANXIETY DISORDER, UNSPECIFIED Status: Acute Priority: Medium Current Visit: Yes (7) Hypothyroidism SNOMED Code(s): 80706577 ICD Code: E03.9 - HYPOTHYROIDISM, UNSPECIFIED Status: Acute Priority: Medium Current Visit: Yes (8) Acute sinusitis with symptoms > 10 days SNOMED Code(s): 91829526 ICD Code: J01.90 - ACUTE SINUSITIS, UNSPECIFIED Status: Acute Priority: High Current Visit: Yes (9) COPD exacerbation SNOMED Code(s): 196052390, 913816471 ICD Code: J44.1 - CHRONIC OBSTRUCTIVE PULMONARY DISEASE W (ACUTE) EXACERBATION Status: Acute Priority: High Current Visit: Yes (10) Hypertension, benign SNOMED Code(s): 69577556 ICD Code: I10 - ESSENTIAL (PRIMARY) HYPERTENSION Status: Acute Priority: High Current Visit: Yes - Patient Instructions Diet: Heart Healthy Diet Driving: Do Not Drive Other/Special Instructions: Check INR 12/12/16Thursday then check INR again next week. Follow up at [facility] in 1-2 weeks. Sooner if needed. - Discharge Plan Prescriptions/Med Rec: LORazepam [Ativan] 0.5 mg PO Q12HR #180 tablet amLODIPine [Norvasc] 2.5 mg PO Q12HR #90 tablet metroNIDAZOLE 250 mg PO TID #21 tablet Home Medications: Home Meds Ketotifen Fumarate [Zaditor] 1 drop EYEBOTH BEDTIME 07/15/16 [History] Levothyroxine Sodium [Unithroid] 50 mcg PO DAILY 07/15/16 [History] Multivitamin [Daily Rajat] 1 tab PO DAILY 07/15/16 [History] Nitroglycerin [Nitrostat] 0.4 mg SL Q5M PRN 07/15/16 [History] Warfarin [Coumadin] 1 tab PO MOTUTHFRSA@1800 07/15/16 [History] Metoprolol Tartrate [Lopressor] 12.5 mg PO Q12HR #15 tablet 07/18/16 [Rx] Isosorbide Mononitrate [Imdur] 60 mg PO BEDTIME #30 tab.er 08/13/16 [Rx] Cholecalciferol (Vitamin D3) [Vitamin D3] 2,000 unit PO BEDTIME 09/30/16 [ History] Furosemide [Lasix] 20 mg PO DAILY 09/30/16 [History] Losartan [Cozaar] 50 mg PO DAILY #30 tablet 10/05/16 [Rx] Prednisone [IJP: Prednisone] 5 mg PO ACBREAKFAST #30 tab 10/05/16 [Rx] Acetaminophen [Tylenol Arthritis] 650 mg PO Q8HR PRN 12/05/16 [History] Doxazosin [Cardura] 1 tab PO BID 12/05/16 [History] L.acidoph,Paracasei, B.lactis [Probiotic] 1 each PO DAILY 12/05/16 [History] Omeprazole Magnesium [Prilosec Otc] 20 mg PO DAILY 12/05/16 [History] Ubidecarenone [Co Q-10] 30 mg PO DAILY 12/05/16 [History] LORazepam [Ativan] 0.5 mg PO Q12HR #180 tablet 12/09/16 [Rx] amLODIPine [Norvasc] 2.5 mg PO Q12HR #90 tablet 12/09/16 [Rx] metroNIDAZOLE 250 mg PO TID #21 tablet 12/09/16 [Rx] - Discharge Summary/Plan Comment DC Time >30 min.: No Discharge Summary/Plan Comment: 12/09/16 Yehuda Quintana MD 86 year old hospitalized for chest pain, labile HTN, acute sinusitous, out patient treatment unsuccessful, COPD acute exacerbation. Now ready for discharge. - Patient Data Vitals - Most Recent: Last Vital Signs Temp 97.7 F 12/09/16 12:00 Pulse 68 12/09/16 12:00 Resp 16 12/09/16 12:00 BP 144/70 H 12/09/16 12:00 Pulse Ox 97 12/09/16 12:00 Weight - Most Recent: 168 lb 6.401 oz I&O - Last 24 hours: Intake & Output 12/08/16 12/09/16 12/09/16 22:59 06:59 14:59 Intake Total 500 250 Output Total 675 1000 Balance -175 -1000 250 Lab Results - Last 24 hrs: Laboratory Results - last 24 hr 12/09/16 12/09/16 12/09/16 Range/Units 07:06 07:06 07:06 WBC 9.8 (4.0-10.2) K/uL RBC 3.51 L (3.77-5.09) M/uL Hgb 9.6 L (11.7-15.5) g/dL Hct 29.5 L (34.0-46.0) % MCV 84.0 (84.0-98.0) fL MCH 27.4 L (28.2-33.3) pg MCHC 32.5 (31.7-36.0) g/dL RDW 16.4 H (11.2-14.1) % Plt Count 247 (150-350) K/uL Neut % (Auto) 74.7 (45.0-80.0) % Lymph % (Auto) 16.9 (10.0-50.0) % [place] % (Auto) 7.6 (2.0-14.0) % Eos % (Auto) 0.5 (0.0-5.0) % Baso % (Auto) 0.3 (0.0-2.0) % Neut # (Auto) 7.34 H (1.40-7.00) K/uL Lymph # (Auto) 1.66 (0.50-3.50) K/uL [place] # (Auto) 0.75 (0.00-1.00) K/uL Eos # (Auto) 0.05 (0.00-0.50) K/uL Baso # (Auto) 0.03 (0.00-0.20) K/uL PT 17.8 H (9.8-11.7) SEC INR 1.6 Sodium 137 (136-145) mmol/L Potassium 4.3 (3.5-5.1) mmol/L Chloride 104 (98-107) mmol/L Carbon Dioxide 26.1 (21.0-32.0) mmol/L BUN 34 H (7-18) mg/dL Creatinine 0.96 (0.51-1.17) mg/dL Est Cr Clr Drug Dosing 35.91 mL/min Estimated GFR (MDRD) 55 mL/min Glucose 94 (74-106) mg/dL Calcium 8.2 L (8.5-10.1) mg/dL Total Bilirubin 0.2 (0.2-1.0) mg/dL AST 15 (15-37) U/L ALT 17 (12-78) U/L Alkaline Phosphatase 57 (46-116) IU/L [id number] Pept 1364 H (0-125) pg/mL Total Protein 5.8 L (6.4-8.2) g/dL Albumin 2.8 L (3.4-5.0) g/dL Med Orders - Current: Current Medications Acetaminophen (Tylenol) 650 mg PO Q4H PRN PRN Reason: Pain (Mild 1-3)/fever Acetaminophen (Tylenol Arthritis Pain) 650 mg PO Q8HR PRN PRN Reason: Pain Amlodipine Besylate (Norvasc) 2.5 mg PO Q12HR [facility] Last Admin: 12/09/16 08:45 Dose: 2.5 mg Doxazosin Mesylate (Cardura) 4 mg PO Q12HR [facility] Last Admin: 12/09/16 08:44 Dose: 4 mg Furosemide (Lasix) 20 mg PO DAILY [facility] Last Admin: 12/09/16 08:44 Dose: 20 mg Metronidazole 500 mg/ Premix 100 mls @ 100 mls/hr IV Q8H [facility] Last Admin: 12/09/16 08:43 Dose: 100 mls/hr Isosorbide Mononitrate (Imdur) 60 mg PO BEDTIME [facility] Last Admin: 12/08/16 21:45 Dose: 60 mg Ketotifen Fumarate (Ketotifen 0.025% Ophth Soln) 1 ml EYEBOTH BEDTIME [facility] Last Admin: 12/08/16 21:45 Dose: 1 drop Levothyroxine Sodium (Synthroid) 50 mcg PO DAILY [facility] Last Admin: 12/09/16 08:44 Dose: 50 mcg Lorazepam (Ativan) 0.5 mg PO Q12HR [facility] Last Admin: 12/09/16 08:45 Dose: 0.5 mg Losartan Potassium (Cozaar) 50 mg PO Q12HR [facility] Last Admin: 12/09/16 08:44 Dose: 50 mg Methylprednisolone Sodium Succinate (Solu-Medrol) 40 mg IVPUSH DAILY [facility] Last Admin: 12/09/16 08:45 Dose: 40 mg Metoprolol Tartrate (Lopressor) 12.5 mg PO Q12HR [facility] Last Admin: 12/09/16 08:44 Dose: 12.5 mg Multivitamins/Minerals/Vitamin C (Tab-A-Rajat) 1 tab PO DAILY [facility] Last Admin: 12/09/16 08:44 Dose: 1 tab Nitroglycerin (Nitrostat) 0.4 mg SL Q5M PRN PRN Reason: Chest Pain Omeprazole (Omeprazole) 20 mg PO DAILY [facility] Last Admin: 12/09/16 08:44 Dose: 20 mg Sodium Chloride (Saline Flush) 10 ml FLUSH ASDIRECTED PRN PRN Reason: Keep Vein Open Last Admin: 12/09/16 08:45 Dose: 10 ml Warfarin Sodium (Coumadin) 1 mg PO SuMoTuThSa@1800 [facility] Last Admin: 12/08/16 17:48 Dose: 1 mg Discontinued Medications Amlodipine Besylate (Norvasc) 2.5 mg PO BID [facility] Last Admin: 12/06/16 07:34 Dose: 2.5 mg Doxazosin Mesylate (Cardura) 4 mg PO BID [facility] Last Admin: 12/06/16 07:33 Dose: 4 mg Ciprofloxacin/Dextrose 400 mg/ (Premix) 200 mls @ 200 mls/hr IV ONETIME ONE Stop: 12/07/16 16:59 Last Admin: 12/07/16 17:03 Dose: Not Given Ciprofloxacin/Dextrose 200 mg/ (Premix) 100 mls @ 100 mls/hr IV DAILY@1700 [facility] Last Admin: 12/08/16 17:38 Dose: 100 mls/hr Ciprofloxacin/Dextrose 400 mg/ (Premix) 200 mls @ 200 mls/hr IV ONETIME ONE Stop: 12/07/16 17:59 Last Admin: 12/07/16 17:28 Dose: 200 mls/hr Lorazepam (Ativan) 0.5 mg PO BEDTIME PRN PRN Reason: restlessness Last Admin: 12/07/16 09:06 Dose: 0.5 mg Losartan Potassium (Cozaar) 50 mg PO DAILY [facility] Last Admin: 12/06/16 07:33 Dose: 50 mg Prednisone (Prednisone) 5 mg PO ACBREAKFAST [facility] Last Admin: 12/08/16 07:13 Dose: 5 mg Warfarin Sodium (Coumadin) 2 mg PO WeFr@1800 [facility] Last Admin: 12/05/16 17:29 Dose: 2 mg *Q Meaningful Use (DIS) - VTE *Q VTE Criteria *Q: - Stroke *Q Stroke Criteria *Q: - AMI *Q AMI Criteria *Q:
== END 2016-12-09 15:00 | disposition home health service (06) | DRG 190 ==
LOC: LL.DI 12:17 → LL.MS 12:52 → OBSVTOIN 15:54
PROVIDERS: ADMIT Nurse Practitioner Family; ATTEND Family Medicine
DX: J44.1 Chronic obstructive pulmonary disease with (acute) exacerbation (principal); R07.9 Chest pain, unspecified; I26.99 Other pulmonary embolism without acute cor pulmonale; R42 Dizziness and giddiness; I50.43 Acute on chronic combined systolic (congestive) and diastolic (congestive) heart failure; I13.0 Hypertensive heart and chronic kidney disease with heart failure and stage 1 through stage 4 chronic kidney disease, or unspecified chronic kidney disease; J01.90 Acute sinusitis, unspecified; Z86.711 Personal history of pulmonary embolism; I25.10 Atherosclerotic heart disease of native coronary artery without angina pectoris; N18.3 Chronic kidney disease, stage 3 (moderate); E78.00 Pure hypercholesterolemia, unspecified; I73.9 Peripheral vascular disease, unspecified; I48.91 Unspecified atrial fibrillation; Z79.01 Long term (current) use of anticoagulants; G47.33 Obstructive sleep apnea (adult) (pediatric); F32.9 Major depressive disorder, single episode, unspecified; F41.9 Anxiety disorder, unspecified; Z51.5 Encounter for palliative care; E03.9 Hypothyroidism, unspecified; Z88.1 Allergy status to other antibiotic agents; Z88.0 Allergy status to penicillin; Z88.8 Allergy status to other drugs, medicaments and biological substances; Z91.02 Food additives allergy status; Z79.899 Other long term (current) drug therapy
CPT/HCPCS: 36415; 71020; 80053; 81001; 83735; 83880; 84443; 84484; 85025; 85610; 85651; 85730; 86140; 93005; A9270-GY; G0378; G0379; J0744; J2920; J7050

== ENCOUNTER 2017-06-10 13:22 | Inpatient (IN) | payer MEDICARE, OTHER ==
[2017-06-10] MEDS ORDERED: Polyvinyl Alcohol 1.4% Ophth Soln 15 ML Bottle EYEBOTH PRN (16:14)
[2017-06-10] MEDS: hydrALAZINE 50 MG Tab PO SCH (17:22)
[2017-06-10] MEDS: Carvedilol 6.25 MG Tab PO SCH (17:23)
[2017-06-10] MEDS: Lutein/Minerals/Vitamin C/Vitamin E Acetate Cap PO SCH (17:24)
[2017-06-10] MEDS: Acetaminophen 650 MG Tab.ER PO SCH (17:25)
--- NOTE | 2017-06-10 17:41 | PCM.HP ---
H&P History of Present Illness - General Date of Service: 06/10/17 Admit Problem/Dx: Admission Diagnosis/Problem Admission Diagnosis/Problem Coronary artery disease Source of Information: Patient, Old Records - History of Present Illness Initial Comments - Free Text/Narative: 87 yo recent nonSTEMI, s/p stents x3, high blood pressure out of control, paroxysmal atrial fibrillation developed recent hematoma left leg which was drained today. Left Lower leg Pain Score (Numeric/FACES): 5 - Related Data Allergies/Adverse Reactions: Allergies Allergy/AdvReac Type Severity Reaction Status Date / Time atorvastatin calcium Allergy Lightheaded Verified 09/30/16 23:34 [From Lipitor] ness benzalkonium chloride Allergy Redness Verified 09/30/16 23:34 [From Travatan] celecoxib [From Celebrex] Allergy Change Verified 09/30/16 23:34 Mental Status erythromycin base Allergy Hives Verified 09/30/16 23:34 [Erythromycin Base] iodine Allergy Other Verified 09/30/16 23:34 nifedipine Allergy Swelling Verified 09/30/16 23:34 Penicillins Allergy Swelling Verified 09/30/16 23:34 rofecoxib [From Vioxx] Allergy Change Verified 09/30/16 23:34 Mental Status rosuvastatin calcium Allergy Lightheaded Verified 09/30/16 23:34 [From Crestor] ness sulfamethoxazole Allergy Hives Verified 09/30/16 23:34 [From Sulfamethoprim] travoprost [From Travatan] Allergy Redness Verified 09/30/16 23:34 trimethoprim Allergy Hives Verified 09/30/16 23:34 [From Sulfamethoprim] valdecoxib [From Bextra] Allergy Change Verified 09/30/16 23:34 Mental Status soy Allergy Nausea and Uncoded 09/30/16 23:34 Vomiting Home Medications: Home Meds Levothyroxine Sodium [Unithroid] 50 mcg PO DAILY 07/15/16 [History] Multivitamin [Daily Rajat] 1 tab PO DAILY 07/15/16 [History] Nitroglycerin [Nitrostat] 0.4 mg SL Q5M PRN 07/15/16 [History] Warfarin [Coumadin] 2 mg PO SUWEFR@1800 07/15/16 [History] Cholecalciferol (Vitamin D3) [Vitamin D3] 2,000 unit PO BEDTIME 09/30/16 [ History] Acetaminophen [Tylenol Arthritis] 1,300 mg PO BID 12/05/16 [History] L.acidoph,Paracasei, B.lactis [Probiotic] 1 each PO BEDTIME 12/05/16 [History] Omeprazole Magnesium [Prilosec Otc] 20 mg PO DAILY 12/05/16 [History] Aspirin 81 mg PO DAILY 06/10/17 [History] Carvedilol 6.25 mg PO BID 06/10/17 [History] Clopidogrel [Plavix] 75 mg PO DAILY 06/10/17 [History] Cyclobenzaprine HCl 5 mg PO TID PRN 06/10/17 [History] Dextran 70/Hypromellose [Artificial Tears] 1 drop EYEBOTH Q6HR PRN 06/10/17 [ History] Isosorbide Dinitrate 10 mg PO BID 06/10/17 [History] LORazepam 1 mg PO BEDTIME 06/10/17 [History] LORazepam [Ativan] 0.5 mg PO DAILY 06/10/17 [History] Losartan [Cozaar] 100 mg PO DAILY 06/10/17 [History] Lutein Extract/Zeaxanthin Ext [Lutein 15 MG Softgel] 1 cap PO BID 06/10/17 [ History] Prednisone [IJP: Prednisone] 5 mg PO DAILY 06/10/17 [History] Sennosides/Docusate Sodium [Senna-S] 1 each PO DAILY 06/10/17 [History] Ubidecarenone [Coenzyme Q10] 100 mg PO BEDTIME 06/10/17 [History] Warfarin [Coumadin] 1 mg PO MOTUTHSA@1800 06/10/17 [History] hydrALAZINE [Apresoline] 50 mg PO TID 06/10/17 [History] oxyCODONE 5 mg PO Q6HR PRN 06/10/17 [History] Past Medical History HEENT History: Reports: Allergic Rhinitis, Cataract, Glaucoma, Hard of Hearing, Impaired Vision, Other (See Below) Other HEENT History: Patient wears trifocals, bilateral hearing aides Cardiovascular History: Reports: Afib, Arrhythmia, Blood Clots/VTE/DVT, CAD, Cardiomyopathy, Heart Failure, Heart Murmur, High Cholesterol, Hypertension, PVD , Other (See Below) Other Cardiovascular History: First degree A-V block, PVCs, PACs, distant brief atrial fibrillation, patient denies previous ND despite medical records, grade 2 diastolic dysfunction, moderate left ventricular hypertrophy and left atrial enlargement by echocardiogram, mild pulmonary valve insufficiency and mild to moderate tricuspid valve insufficiency with additional mild mitral valve insufficiency by echocardiogram, mild aortic valve sclerosis without stenosis, mild carotid occlusive, history of superficial thrombophlebitis and varicose veins, DVT of the proximal left femoral vein on 08/09/15 with right-sided PE on 05/08/16 and current warfarin therapy Respiratory History: Reports: COPD, Intubation, Previous, PE, Sleep Apnea, SOB, Other (See Below) Other Respiratory History: Patient does use CPAP for her moderate to severe obstructive sleep apnea with previous history of nocturnal hypoxemia, PE as above, benign pulmonary nodules with previous left apical benign granuloma by CT scan on 05/08/16, COPD by chest x-ray with no medical therapy Gastrointestinal History: Reports: Chronic Constipation, Diverticulosis, GERD, Hiatal Hernia, Other (See Below) Other Gastrointestinal History: Probable benign right hepatic mass at about 2.[address] scan on 08/11/16, Benign hepatic cysts by CT scan on 02/18/16, fatty liver secondary to hyperlipidemia Genitourinary History: Reports: Chronic Renal Insuffiency, Renal Disease, Urinary Incontinence, Other (See Below) Other Genitourinary History: kidney disease stage 3, bilateral benign renal cysts CLINICAL PHARMACY COORDINATOR History: Reports: Dysfunctional Uterine Bleeding, Fibroids, Other OB/BYN History: surgical menopause Musculoskeletal History: Reports: Arthritis, Back Pain, Chronic, Fibromyalgia, Gout, Neck Pain, Chronic, Osteoarthritis, Osteoporosis, RA Neurological History: Reports: CVA, Headaches, Chronic, Migraines, Other (See Below) Other Neuro History: 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, ambulates with a cane currently, history of distant migraine headaches nonproblematic at this time Psychiatric History: Reports: Addiction, Anxiety, Depression, Other (See Below) Other Psychiatric History: Chronic narcotic use secondary to her fibromyalgia and arthritis Endocrine/Metabolic History: Reports: Hypothyroidism, Osteoporosis, Other (See Below) Other Endocrine/Metabolic History: Hyponatremia secondary to CHF Hematologic History: Reports: Anemia, Blood Transfusion(s), Iron Deficiency, Other (See Below) Other Hematologic History: 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 with transfusion required Immunologic History: Reports: None Oncologic (Cancer) History: Reports: None Dermatologic History: Reports: Other (See Below) Other Dermatologic History: Actinic keratosis of the nose previously treated - Infectious Disease History Infectious Disease History: Reports: Chicken Pox, Measles, Mumps, Shingles - Past Surgical History Head Surgeries/Procedures: Reports: None HEENT Surgical History: Reports: Cataract Surgery, Oral Surgery, Other (See Below) Cardiovascular Surgical History: Reports: Varicose, Vascular Surgery, Other ( See Below) GI Surgical History: Reports: Appendectomy, Colonoscopy, Other (See Below) Female Surgical History: Reports: Breast Biopsy, Hysterectomy, Salpingo- Oophorectomy, Other (See Below) Musculoskeletal Surgical History: Reports: Arthroscopic Knee, Arthroscopic Procedure, Carpal Tunnel, Hip Replacement, Joint Replacement, Other (See Below) Oncologic Surgical History: Reports: Biopsy of Breast, Other (See Below) - Past Imaging History Past Imaging History: Reports: Angiography, Cardiac Echo, Carotid US, CAT Scan, Mammogram, MRI, Sleep Study, Stress Testing, Ultrasound, Venous Doppler Social & Family History - Family History HEENT: Reports: Allergic Rhinitis, Retinal Detachment, Other (See Below) Other HEENT Family History: Daughter with retinal detachment Cardiac: Reports: Bypass, CAD, Heart Murmur, Heart Valve Replacement, High Cholesterol, Hypertension, ND, PVD/COD, Other (See Below) Other Cardiac Family History: Son with mechanical valve replacement and CABG x1 at about age 62, son also - also suffers from hypertension and hyperlipidemia, son with agent orange exposure Respiratory: Reports: None GI: Reports: Celiac Disease, Other (See Below) Other GI Family History: Daughter with celiac disease : Reports: Renal Disease/Insufficiency, Other (See Below) Other Family History: Mother with end-stage renal disease OBGYN: Reports: None Musculoskeletal: Reports: None Neurological: Reports: Migraines, Seizure, Other (See Below) Other Neurological Family History: Granddaughter with seizures at age 19, 2 granddaughters with migraine headaches Psychiatric: Reports: Anxiety, Depression, Other (See Below) Other Psychiatric Family History: Son with anxiety depression disorder Endocrine/Metabolic: Reports: None Hematologic: Reports: None Immunologic: Reports: None Dermatologic: Reports: Psoriasis, Other (See Below) Other Dermatologic Family History: Daughter with psoriasis Oncologic: Reports: Bone, Esophageal, Metastatic, Other (See Below) Other Oncologic Family History: Sister with possible bone cancer fatal at age 18 , sister with fatal throat cancer in her 60s, sister with fatal vaginal cancer in her 60s, father with fatal throat cancer with pulmonary metastases at age 77 - Tobacco Use Smoking Status *Q: Never Smoker Second Hand Smoke Exposure: No - Caffeine Use Caffeine Use: Reports: Coffee (4 cups per day), Soda (2 sodas per month), Tea ( 2 cups per week). Denies: Energy Drinks - Alcohol Use Days Per Week of Alcohol Use: 0 (No previous DWIs, problems with alcohol abuse, etc.) Number of Drinks Per Day: 1 (Usually occasional beer or wine once per month) Total Drinks Per Week: 0 - Recreational Drug Use Recreational Drug Use: No Drug Use in Last 12 Months: No - Living Situation & Occupation Living situation: Reports: , Alone Occupation: Retired H&P Review of Systems - Review of Systems: Review Of Systems: See Below General: Reports: Weakness HEENT: Reports: Headaches Pulmonary: Reports: No Symptoms Cardiovascular: Reports: Edema, Lightheadedness, Blood Pressure Problem Gastrointestinal: Reports: No Symptoms Genitourinary: Reports: No Symptoms Musculoskeletal: Reports: Leg Pain (left) Skin: Reports: Other (hematoma left leg) Psychiatric: Reports: Depression, Anxiety Neurological: Reports: Dizziness Hematologic/Lymphatic: Reports: Anemia, Easy Bleeding, Easy Bruising Immunologic: Reports: No Symptoms Exam - Exam Exam: See Below - Vital Signs Vital Signs: Last Vital Signs Temp 98.5 F 06/10/17 17:08 Pulse 76 06/10/17 17:08 Resp 18 06/10/17 17:08 BP 202/64 H 06/10/17 17:23 Pulse Ox - Exam Quality Assessment: Other (hematoma left leg) General: Alert, Cooperative, Other (appears weak) HEENT: Conjunctiva Clear, Hearing Intact, Mucosa Moist & [place], Normal Nasal Septum, Pupils Equal, Pupils Reactive Neck: Trachea Midline Lungs: Clear to Auscultation, Normal Respiratory Effort Cardiovascular: Regular Rate, Regular Rhythm GI/Abdominal Exam: Normal Bowel Sounds, Soft, Non-Tender, No Distention (Female) Exam: Deferred Rectal (Female) Exam: Deferred Back Exam: Normal Inspection, Other (mild kyphosis) Extremities: Pedal Edema, Other (hematoma LLE drained today. bandage clean and dry.) Skin: Warm, Dry, Intact, Ecchymosis Neurological: Normal Speech, Normal Tone, Sensation Intact, Other (generalized weakness) Neuro Extensive - Mental Status: Alert, Normal Cognition, Memory Intact Psychiatric: Alert, Anxious, Depressed *Q Meaningful Use (ADM) - VTE *Q VTE Criteria *Q: VTE Mechanical Contraindications *Q: Bilateral Lower Edema VTE Pharmacological Contraindications *Q: Risk of Bleeding - Stroke *Q Stroke Criteria *Q: - AMI *Q AMI Criteria *Q: - Problem List (1) Non-ST elevation (NSTEMI) myocardial infarction SNOMED Code(s): 308885581 ICD Code: I21.4 - NON-ST ELEVATION (NSTEMI) MYOCARDIAL INFARCTION Status: Acute Priority: Medium Current Visit: Yes (2) Anxiety SNOMED Code(s): 62519234 ICD Code: F41.9 - ANXIETY DISORDER, UNSPECIFIED Status: Acute Priority: Medium Current Visit: No (3) COPD (chronic obstructive pulmonary disease) SNOMED Code(s): 00314132 ICD Code: J44.9 - CHRONIC OBSTRUCTIVE PULMONARY DISEASE, UNSPECIFIED Status : Acute Current Visit: No (4) Dizziness and giddiness SNOMED Code(s): 121825315 ICD Code: R42 - DIZZINESS AND GIDDINESS Status: Acute Priority: High Current Visit: No (5) HTN (hypertension) SNOMED Code(s): 75142897 ICD Code: I10 - ESSENTIAL (PRIMARY) HYPERTENSION Status: Acute Priority: High Current Visit: No Qualifiers: Hypertension type: essential hypertension (6) Heart disease SNOMED Code(s): 37873071 ICD Code: I51.9 - HEART DISEASE, UNSPECIFIED Status: Acute Priority: Medium Current Visit: No Problem Details: No chest pain or anginal complaints with no significant edema today. Previous echocardiogram and Cardiolite stress test did not indicate any significant cardiac disease with previous history of cardiomegaly likely secondary to her hypertension and only mild history of arrhythmia, including PACs. (7) History of hip replacement SNOMED Code(s): 281898135 ICD Code: Z96.649 - PRESENCE OF UNSPECIFIED ARTIFICIAL HIP JOINT Status: Acute Priority: High Current Visit: No Qualifiers: Laterality: left Qualified Code(s): Z96.642 - Presence of left artificial hip joint (8) Hyponatremia SNOMED Code(s): 45415593 ICD Code: E87.1 - HYPO-OSMOLALITY AND HYPONATREMIA Status: Acute Priority : High Current Visit: No (9) Hypothyroidism SNOMED Code(s): 42797934 ICD Code: E03.9 - HYPOTHYROIDISM, UNSPECIFIED Status: Acute Current Visit : No (10) Iron deficiency anemia SNOMED Code(s): 68960280 ICD Code: D50.9 - IRON DEFICIENCY ANEMIA, UNSPECIFIED Status: Acute Current Visit: No (11) Osteoarthritis SNOMED Code(s): 105690797 ICD Code: M19.90 - UNSPECIFIED OSTEOARTHRITIS, UNSPECIFIED SITE Status: Acute Current Visit: No (12) Peptic reflux disease SNOMED Code(s): 70971031 ICD Code: K21.9 - GASTRO-ESOPHAGEAL REFLUX DISEASE WITHOUT ESOPHAGITIS Status: Acute Current Visit: No (13) Pulmonary embolism on long-term anticoagulation therapy SNOMED Code(s): 487567713 ICD Code: I26.99 - OTHER PULMONARY EMBOLISM WITHOUT ACUTE COR PULMONALE; Z79.01 - DIRECTOR SANITATION BUREAU (CURRENT) USE OF ANTICOAGULANTS Status: Acute Priority: Medium Current Visit: No (14) DVT (deep venous thrombosis) SNOMED Code(s): 127001163 ICD Code: I82.409 - ACUTE EMBOLISM AND THOMBOS UNSP DEEP VN UNSP LOWER EXTREMITY Status: Chronic Priority: High Current Visit: No Onset Date: 07/27/15 Problem Details: History of DVT and PE as above with mildly subtherapeutic INR today. Repeat INR in the a.m. with mild Coumadin adjustment today Qualifiers: DVT location: lower extremity Affected thrombotic vein of extremity: femoral Chronicity: unspecified Laterality: left Qualified Code(s): I82.412 - Acute embolism and thrombosis of left femoral vein (15) Hypothyroidism SNOMED Code(s): 50323502 ICD Code: E03.9 - HYPOTHYROIDISM, UNSPECIFIED Status: Chronic Priority: Medium Current Visit: No Problem Details: Currently under therapy. 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 SNOMED Code(s): 795276063 ICD Code: F41.8 - OTHER SPECIFIED ANXIETY DISORDERS Status: Chronic Current Visit: No Problem Details: Stable by patient history with continued close observation by her regular provider (17) Renal insufficiency SNOMED Code(s): 266322298 ICD Code: N28.9 - DISORDER OF KIDNEY AND URETER, UNSPECIFIED Status: Chronic Priority: Medium Current Visit: No Problem Details: Stable by history with normal creatinine today (18) Hematoma of left lower extremity SNOMED Code(s): 412094395 ICD Code: S80.12XA - CONTUSION OF LEFT LOWER LEG, INITIAL ENCOUNTER Status : Acute Priority: High Current Visit: Yes Qualifiers: Encounter type: subsequent encounter Qualified Code(s): S80.12XD - Contusion of left lower leg, subsequent encounter (19) Paroxysmal atrial fibrillation SNOMED Code(s): 042905729 ICD Code: I48.0 - PAROXYSMAL ATRIAL FIBRILLATION Status: Acute Priority: Medium Current Visit: Yes (20) 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 SNOMED Code(s): 565011337 ICD Code: Z95.5 - PRESENCE OF CORONARY ANGIOPLASTY IMPLANT AND GRAFT Status : Acute Priority: High Current Visit: Yes (21) Comfort measures only status SNOMED Code(s): 06668529877433 ICD Code: Z51.5 - ENCOUNTER FOR PALLIATIVE CARE Status: Acute Priority: Medium Current Visit: No (22) Weakness generalized SNOMED Code(s): 10984759 ICD Code: R53.1 - WEAKNESS Status: Acute Priority: High Current Visit: Yes (23) Hypertension, malignant SNOMED Code(s): 00856712 ICD Code: I10 - ESSENTIAL (PRIMARY) HYPERTENSION Status: Acute Priority: High Current Visit: Yes Problem List Initiated/Reviewed/Updated: Yes Orders Last 24hrs: Active Orders 24 hr Category Date Time Status Patient Status [ADT] Routine ADT 06/10/17 17:14 Ordered Ambulate [RC] PER UNIT ROUTINE Care 06/10/17 17:14 Ordered Height and Weight [RC] PER UNIT ROUTINE Care 06/10/17 17:18 Ordered May Shower [RC] ASDIRECTED Care 06/10/17 17:14 Ordered Notify Provider Vital Signs [RC] ASDIRECTED Care 06/10/17 17:18 Ordered Oxygen Therapy [RC] PRN Care 06/10/17 17:14 Ordered VTE/DVT Education [RC] PER UNIT ROUTINE Care 06/10/17 17:14 Ordered Vital Signs [RC] PER UNIT ROUTINE Care 06/10/17 17:14 Ordered Consult to Case Management [CONS] Routine Cons 06/10/17 17:14 Ordered OT Evaluation and Treatment [CONS] Routine Cons 06/10/17 17:14 Ordered PT Evaluation and Treatment [CONS] Routine Cons 06/10/17 17:14 Ordered Heart Healthy Diet [DIET] Diet 06/10/17 Dinner Ordered CBC WITH AUTO DIFF [HEME] Routine Lab 06/11/17 05:11 Ordered CMP [COMPREHENSIVE METABOLIC PN,CMP] [CHEM] Routine Lab 06/11/17 05:11 Ordered CRP [C-REACTIVE PROTEIN] [CHEM] Routine Lab 06/11/17 05:11 Ordered INR,PT,PROTHROMBIN TIME [COAG] Routine Lab 06/11/17 05:11 Ordered PTT,PARTIAL THROMBOPLSTIN TIME [COAG] Routine Lab 06/11/17 05:11 Ordered SEDIMENTATION RATE MANUAL [HEME] Routine Lab 06/11/17 05:11 Ordered Acetaminophen [Tylenol Arthritis Pain] Med 06/10/17 18:00 Active 1,300 mg PO BID Aspirin Med 06/12/17 08:00 Active 81 mg PO DAILY Carvedilol [Coreg] Med 06/10/17 18:00 Active 6.25 mg PO BID Cholecalciferol (Vitamin D3) [Vitamin D3] Med 06/10/17 20:00 Active 2,000 units PO BEDTIME Clopidogrel [Plavix] Med 06/11/17 08:00 Active 75 mg PO DAILY Cyclobenzaprine [Flexeril] Med 06/10/17 16:14 Active 5 mg PO TID PRN Docusate Sodium/Sennosides [Senna Plus] Med 06/11/17 08:00 Active 1 tab PO DAILY Isosorbide Dinitrate [Isordil] Med 06/10/17 20:00 Active 10 mg PO Q12HR LORazepam [Ativan] Med 06/11/17 08:00 Active 0.5 mg PO DAILY LORazepam [Ativan] Med 06/10/17 20:00 Active 1 mg PO BEDTIME Lactobacillus Rhamnosus GG [Culturelle] Med 06/10/17 20:00 Active 1 cap PO BEDTIME Levothyroxine [Synthroid] Med 06/11/17 08:00 Active 50 mcg PO DAILY Losartan [Cozaar] Med 06/11/17 08:00 Active 100 mg PO DAILY Lutein/Min/Vit C/Vit E Acetate [Ocuvite Lutein] Med 06/10/17 18:00 Active 1 each PO BID Multivitamins [Tab-A-Rajat] Med 06/11/17 08:00 Active 1 tab PO DAILY Nitroglycerin [Nitrostat] Med 06/10/17 16:14 Active 0.4 mg SL Q5M PRN Omeprazole Med 06/11/17 08:00 Active 20 mg PO DAILY Ubidecarenone [Coenzyme Q10] Med 06/10/17 20:00 Active 100 mg PO BEDTIME hydrALAZINE [Apresoline] Med 06/10/17 18:00 Active 50 mg PO TID oxyCODONE Med 06/10/17 16:14 Active 5 mg PO Q6HR PRN predniSONE Med 06/11/17 08:00 Active 5 mg PO DAILY Resuscitation Status Routine Resus Stat 06/10/17 17:14 Ordered Medication Orders Acetaminophen (Tylenol Arthritis Pain) 1,300 mg PO BID [facility] Last Admin: 06/10/17 17:25 Dose: 1,300 mg Aspirin (Aspirin) 81 mg PO DAILY [facility] Carvedilol (Coreg) 6.25 mg PO BID [facility] [place] Last Admin: 06/10/17 17:23 Dose: 6.25 mg Cholecalciferol (Vitamin D3) 2,000 units PO BEDTIME [facility] Clopidogrel Bisulfate (Plavix) 75 mg PO DAILY [facility] Coenzyme Q10 (Coenzyme Q10) 100 mg PO BEDTIME [facility] Cyclobenzaprine HCl (Flexeril) 5 mg PO TID PRN PRN Reason: muscle spasms Hydralazine HCl (Apresoline) 50 mg PO TID [facility] Last Admin: 06/10/17 17:22 Dose: 50 mg Isosorbide Dinitrate (Isordil) 10 mg PO Q12HR [facility] Lactobacillus Rhamnosus (Culturelle) 1 cap PO BEDTIME [facility] Levothyroxine Sodium (Synthroid) 50 mcg PO DAILY [facility] Lorazepam (Ativan) 0.5 mg PO DAILY [facility] Lorazepam (Ativan) 1 mg PO BEDTIME [facility] Losartan Potassium (Cozaar) 100 mg PO DAILY [facility] Multivitamins/Minerals/Vitamin C (Tab-A-Rajat) 1 tab PO DAILY [facility] [place] Nitroglycerin (Nitrostat) 0.4 mg SL Q5M PRN PRN Reason: Chest Pain Omeprazole (Omeprazole) 20 mg PO DAILY [facility] Oxycodone HCl (Oxycodone) 5 mg PO Q6HR PRN PRN Reason: pain Prednisone (Prednisone) 5 mg PO DAILY [facility] Senna/Docusate Sodium (Senna Plus) 1 tab PO DAILY [facility] Vit C/Vit E/Zinc/Copper/Lutein (Ocuvite Lutein) 1 each PO BID [facility] [place] Last Admin: 06/10/17 17:24 Dose: 1 each Assessment/Plan Comment:: 06/10/17 Yehuda Quintana MD 87 year old WF recent nonSTEMI, s/p coronary artery stents placed, labile hypertension, acute/chronic kidney disease, left lower extremity hematoma, drained today. Very weak. Needs PT-OT, wound care, blood pressure monitoring, renal monitoring.
[2017-06-10] MEDS: LORazepam 1 MG Tab PO SCH (20:07)
[2017-06-10] MEDS: Lactobacillus Rhamnosus GG (Probiotic) Cap PO SCH (20:12)
[2017-06-10] MEDS: Cholecalciferol (Vitamin D3) 1,000 Unit Tab PO SCH (20:14)
[2017-06-10] MEDS: Isosorbide Dinitrate 10 MG Tab PO SCH (20:21)
[2017-06-11] MEDS: oxyCODONE 5 MG Tab PO PRN ×3 (05:23→21:44)
[2017-06-11 07:33] LABS: CHLORIDE,CL 95 mmol/L (98-107); SODIUM,NA 135 mmol/L (136-145)
[2017-06-11] MEDS: hydrALAZINE 50 MG Tab PO SCH ×2 (08:21→11:49)
[2017-06-11] MEDS: LORazepam 0.5 MG Tab PO SCH (08:27)
[2017-06-11] MEDS: Carvedilol 6.25 MG Tab PO SCH ×2 (08:28→19:26)
[2017-06-11] MEDS: Losartan 50 MG Tab PO SCH (08:30)
[2017-06-11] MEDS: Isosorbide Dinitrate 10 MG Tab PO SCH (08:31)
[2017-06-11] MEDS: Omeprazole 20 MG Cap.CR PO SCH (08:32)
[2017-06-11] MEDS: Clopidogrel 75 MG Tab PO SCH (08:33)
[2017-06-11] MEDS: predniSONE 5 MG Tab PO SCH (08:34)
[2017-06-11] MEDS: Levothyroxine 50 MCG Tab PO SCH (08:36)
[2017-06-11] MEDS: Multivitamin Tab PO SCH (08:37)
[2017-06-11] MEDS: Lutein/Minerals/Vitamin C/Vitamin E Acetate Cap PO SCH ×2 (08:38→17:20)
[2017-06-11] MEDS: Acetaminophen 650 MG Tab.ER PO SCH ×2 (09:10→19:29)
[2017-06-11] MEDS: Isosorbide Mononitrate 60 MG Tab.ER PO SCH (19:27)
[2017-06-11] MEDS: Doxazosin 4 MG Tab PO SCH (19:27)
[2017-06-11] MEDS: LORazepam 1 MG Tab PO SCH (19:28)
[2017-06-11] MEDS: Lactobacillus Rhamnosus GG (Probiotic) Cap PO SCH (19:29)
[2017-06-11] MEDS: Cholecalciferol (Vitamin D3) 1,000 Unit Tab PO SCH (19:30)
[2017-06-12] MEDS: LORazepam 0.5 MG Tab PO SCH (07:54)
[2017-06-12] MEDS: oxyCODONE 5 MG Tab PO PRN (07:54)
[2017-06-12] MEDS: Carvedilol 6.25 MG Tab PO SCH ×2 (07:56→19:39)
[2017-06-12] MEDS: Furosemide 40 MG Tab PO SCH (07:57)
[2017-06-12] MEDS: Doxazosin 4 MG Tab PO SCH ×2 (07:57→19:38)
[2017-06-12] MEDS: predniSONE 5 MG Tab PO SCH (07:57)
[2017-06-12] MEDS: Clopidogrel 75 MG Tab PO SCH (07:57)
[2017-06-12] MEDS: Levothyroxine 50 MCG Tab PO SCH (07:57)
[2017-06-12] MEDS: Multivitamin Tab PO SCH (07:58)
[2017-06-12] MEDS: Omeprazole 20 MG Cap.CR PO SCH (07:58)
[2017-06-12] MEDS: Losartan 50 MG Tab PO SCH (07:58)
[2017-06-12] MEDS: Lutein/Minerals/Vitamin C/Vitamin E Acetate Cap PO SCH ×2 (07:58→17:56)
[2017-06-12] MEDS: Acetaminophen 650 MG Tab.ER PO SCH ×2 (07:59→19:41)
[2017-06-12] MEDS ORDERED: Furosemide 20 MG Tab PO SCH (08:00)
[2017-06-12] MEDS ORDERED: Aspirin 81 MG Tab.Chew PO SCH (08:00)
--- NOTE | 2017-06-12 09:49 | PCM.PN ---
- General Info Date of Service: 06/12/17 Admission Dx/Problem (Free Text): Admission Diagnosis/Problem Admission Diagnosis/Problem Coronary artery disease Functional Status: Reports: New Symptoms (Extremely fatigued) - Review of Systems General: Reports: Weakness, Fatigue HEENT: Reports: Other (throat feels somewhat dry, trying to drink water which helps) Pulmonary: Reports: No Symptoms Cardiovascular: Reports: No Symptoms Gastrointestinal: Reports: No Symptoms Genitourinary: Reports: No Symptoms Musculoskeletal: Reports: Leg Pain (left leg hurts with movement or handling) Skin: Reports: No Symptoms Neurological: Reports: No Symptoms Psychiatric: Reports: No Symptoms - Patient Data Vitals - Most Recent: Last Vital Signs Temp 97.5 F 06/12/17 08:00 Pulse 63 06/12/17 08:00 Resp 18 06/12/17 08:00 BP 144/65 H 06/12/17 08:00 Pulse Ox 98 06/12/17 08:00 Weight - Most Recent: 174 lb 12.8 oz Lab Results Last 24 Hours: Laboratory Results - last 24 hr 06/12/17 06/12/17 Range/Units 07:05 07:05 WBC 6.5 (4.0-10.2) K/uL RBC 2.49 L (3.77-5.09) M/uL Hgb 7.2 L* (11.7-15.5) g/dL Hct 22.4 L* (34.0-46.0) % MCV 90.0 (84.0-98.0) fL MCH 28.9 (28.2-33.3) pg MCHC 32.1 (31.7-36.0) g/dL RDW 15.7 H (11.2-14.1) % Plt Count 280 (150-350) K/uL Neut % (Auto) 65.0 (45.0-80.0) % Lymph % (Auto) 17.5 (10.0-50.0) % [place] % (Auto) 12.7 (2.0-14.0) % Eos % (Auto) 3.6 (0.0-5.0) % Baso % (Auto) 1.2 (0.0-2.0) % Neut # (Auto) 4.20 (1.40-7.00) K/uL Lymph # (Auto) 1.13 (0.50-3.50) K/uL [place] # (Auto) 0.82 (0.00-1.00) K/uL Eos # (Auto) 0.23 (0.00-0.50) K/uL Baso # (Auto) 0.08 (0.00-0.20) K/uL Sodium 132 L (136-145) mmol/L Potassium 4.7 (3.5-5.1) mmol/L Chloride 98 (98-107) mmol/L Carbon Dioxide 26.5 (21.0-32.0) mmol/L BUN 28 H (7-18) mg/dL Creatinine 1.05 (0.51-1.17) mg/dL Est Cr Clr Drug Dosing 33.33 mL/min Estimated GFR (MDRD) 49 mL/min Glucose 94 (74-106) mg/dL Calcium 8.4 L (8.5-10.1) mg/dL Med Orders - Current: Current Medications Acetaminophen (Tylenol Arthritis Pain) 1,300 mg PO Q12HR [facility] Last Admin: 06/12/17 07:59 Dose: 1,300 mg Aspirin (Aspirin) 81 mg PO DAILY [facility] Last Admin: 06/12/17 07:55 Dose: 81 mg Carvedilol (Coreg) 6.25 mg PO Q12HR [facility] Last Admin: 06/12/17 07:56 Dose: 6.25 mg Cholecalciferol (Vitamin D3) 2,000 units PO BEDTIME [facility] Last Admin: 06/11/17 19:30 Dose: 2,000 units Clopidogrel Bisulfate (Plavix) 75 mg PO DAILY [facility] Last Admin: 06/12/17 07:57 Dose: 75 mg Coenzyme Q10 (Coenzyme Q10) 100 mg PO BEDTIME [facility] Last Admin: 06/11/17 19:29 Dose: 100 mg Cyclobenzaprine HCl (Flexeril) 5 mg PO TID PRN PRN Reason: muscle spasms Doxazosin Mesylate (Cardura) 4 mg PO Q12HR [facility] Last Admin: 06/12/17 07:57 Dose: 4 mg Furosemide (Lasix) 40 mg PO DAILY [facility] Last Admin: 06/12/17 07:57 Dose: 40 mg Isosorbide Mononitrate (Imdur) 60 mg PO BEDTIME [facility] Last Admin: 01/18/18 19:27 Dose: 60 mg Lactobacillus Rhamnosus (Culturelle) 1 cap PO BEDTIME [facility] Last Admin: 06/11/17 19:29 Dose: 1 cap Levothyroxine Sodium (Synthroid) 50 mcg PO DAILY [facility] Last Admin: 06/12/17 07:57 Dose: 50 mcg Lorazepam (Ativan) 0.5 mg PO DAILY [facility] Last Admin: 06/12/17 07:54 Dose: 0.5 mg Lorazepam (Ativan) 1 mg PO BEDTIME [facility] Last Admin: 06/11/17 19:28 Dose: 1 mg Losartan Potassium (Cozaar) 100 mg PO DAILY [facility] Last Admin: 06/12/17 07:58 Dose: 100 mg Multivitamins/Minerals/Vitamin C (Tab-A-Rajat) 1 tab PO DAILY [facility] Last Admin: 06/12/17 07:58 Dose: 1 tab Nitroglycerin (Nitrostat) 0.4 mg SL Q5M PRN PRN Reason: Chest Pain Omeprazole (Omeprazole) 20 mg PO DAILY [facility] Last Admin: 06/12/17 07:58 Dose: 20 mg Oxycodone HCl (Oxycodone) 5 mg PO Q6HR PRN PRN Reason: pain Last Admin: 06/12/17 07:54 Dose: 5 mg Prednisone (Prednisone) 5 mg PO DAILY [facility] Last Admin: 06/12/17 07:57 Dose: 5 mg Senna/Docusate Sodium (Senna Plus) 1 tab PO BID [facility] Last Admin: 06/12/17 07:59 Dose: 1 tab Vit C/Vit E/Zinc/Copper/Lutein (Ocuvite Lutein) 1 each PO BID [facility] Last Admin: 06/12/17 07:58 Dose: 1 each Discontinued Medications Acetaminophen (Tylenol Arthritis Pain) 1,300 mg PO BID [facility] Last Admin: 06/11/17 09:10 Dose: 1,300 mg Artificial Tears (Liquitears 1.4% Ophth Soln) 1 ml EYEBOTH Q6HR PRN PRN Reason: Dry Eyes Carvedilol (Coreg) 6.25 mg PO BID [facility] Last Admin: 06/11/17 08:28 Dose: 6.25 mg Furosemide (Lasix) 20 mg PO DAILY [facility] Hydralazine HCl (Apresoline) 50 mg PO TID [facility] Last Admin: 06/11/17 11:49 Dose: 50 mg Isosorbide Dinitrate (Isordil) 10 mg PO Q12HR [facility] Last Admin: 06/11/17 08:31 Dose: 10 mg Senna/Docusate Sodium (Senna Plus) 1 tab PO DAILY [facility] Last Admin: 06/11/17 08:35 Dose: 1 tab - Exam General: Alert, Oriented, Other (appears fatigued, pale) HEENT: EOMI Neck: Trachea Midline Lungs: Clear to Auscultation Cardiovascular: Regular Rate, Regular Rhythm GI/Abdominal Exam: Normal Bowel Sounds, Soft, Non-Tender (Female) Exam: Deferred Back Exam: Normal Inspection Extremities: Other (LLE wrapped d/t draining of hematoma, tender with exam) Skin: Warm, Dry Neurological: No New Focal Deficit Psy/Mental Status: Alert - Problem List & Annotations (1) Anemia SNOMED Code(s): 704544584 Code(s): D64.9 - ANEMIA, UNSPECIFIED Status: Acute Priority: High Current Visit: Yes Qualifiers: Anemia type: unspecified type Qualified Code(s): D64.9 - Anemia, unspecified Annotation/Comment:: Hgb 7.2 - Problem List Review Problem List Initiated/Reviewed/Updated: Yes - My Orders Last 24 Hours: My Active Orders 06/12/17 07:46 Hemoccult [OCCULT BLOOD DIAGNOSTIC] [OP] Routine 06/13/17 07:47 Hemoccult [OCCULT BLOOD DIAGNOSTIC] [OP] Routine 06/14/17 07:48 Hemoccult [OCCULT BLOOD DIAGNOSTIC] [OP] Routine - Plan Plan:: 06/10/17 Yehuda Quintana MD 87 year old WF recent nonSTEMI, s/p coronary artery stents placed, labile hypertension, acute/chronic kidney disease, left lower extremity hematoma, drained today. Very weak. Needs PT-OT, wound care, blood pressure monitoring, renal monitoring. 06-12-17 Beth Vivas PA-C Hgb down to 7.2 today and resident symptomatic with fatigue and weakness, will type and cross-match for two units, possibly only giving one today. Discussed thoroughly with Chloé, consulted Dr. Blackman. Consent form reviewed and signed with resident.
[2017-06-12] MEDS ORDERED: Sodium Chloride 0.9% 10 ML Syringe FLUSH PRN (10:32)
--- NOTE | 2017-06-12 12:08 | PCM.SN ---
- Free Text/Narrative Note: 06-12-17 Beth Vivas PA-C Aspirin DC'd today per recommendations of [employer] [employer] Dr. Argueta at June 05 appointment.
[2017-06-12] MEDS ORDERED: Sodium Chloride 0.9% 250 ML IV SCH (12:15)
--- NOTE | 2017-06-12 14:33 | PCM.SN ---
- Free Text/Narrative Note: 06-12-17 Beth Vivas PA-C Checked on patient during transfusion. On entrance to her room she is sleeping and her oxygen saturation is running between 86-89%, mostly down at 86%. After I rouse her and she visits with me, telling me she is already feeling better, her O2 sat comes up to 98% and stays there. HS oxygen therapy is ordered.
[2017-06-12] MEDS: LORazepam 1 MG Tab PO SCH (19:37)
[2017-06-12] MEDS: Isosorbide Mononitrate 60 MG Tab.ER PO SCH (19:40)
[2017-06-12] MEDS: Lactobacillus Rhamnosus GG (Probiotic) Cap PO SCH (19:40)
[2017-06-12] MEDS: Sodium Chloride 0.9% 10 ML Syringe FLUSH SCH (19:44)
[2017-06-12] MEDS: Cholecalciferol (Vitamin D3) 1,000 Unit Tab PO SCH (19:45)
[2017-06-13] MEDS: LORazepam 0.5 MG Tab PO SCH (07:52)
[2017-06-13] MEDS: Doxazosin 4 MG Tab PO SCH ×2 (07:53→19:45)
[2017-06-13] MEDS: Carvedilol 6.25 MG Tab PO SCH ×2 (07:54→19:45)
[2017-06-13] MEDS: Lutein/Minerals/Vitamin C/Vitamin E Acetate Cap PO SCH ×2 (07:57→17:21)
[2017-06-13] MEDS: Furosemide 40 MG Tab PO SCH (07:57)
[2017-06-13] MEDS: Clopidogrel 75 MG Tab PO SCH (07:58)
[2017-06-13] MEDS: Omeprazole 20 MG Cap.CR PO SCH (07:58)
[2017-06-13] MEDS: predniSONE 5 MG Tab PO SCH (07:58)
[2017-06-13] MEDS: Multivitamin Tab PO SCH (07:59)
[2017-06-13] MEDS: Levothyroxine 50 MCG Tab PO SCH (07:59)
[2017-06-13] MEDS: Acetaminophen 650 MG Tab.ER PO SCH ×2 (08:00→19:51)
[2017-06-13] MEDS: Losartan 50 MG Tab PO SCH (08:14)
[2017-06-13] MEDS: Sodium Chloride 0.9% 10 ML Syringe FLUSH SCH ×2 (08:15→19:53)
[2017-06-13] MEDS ORDERED: Furosemide 20 MG Tab PO ONE (10:57)
[2017-06-13] MEDS: LORazepam 1 MG Tab PO SCH (19:44)
[2017-06-13] MEDS: Lactobacillus Rhamnosus GG (Probiotic) Cap PO SCH (19:50)
[2017-06-13] MEDS: Isosorbide Mononitrate 60 MG Tab.ER PO SCH (19:51)
[2017-06-13] MEDS: Cholecalciferol (Vitamin D3) 1,000 Unit Tab PO SCH (19:52)
[2017-06-13] MEDS: Polyvinyl Alcohol 1.4% Ophth Soln 15 ML Bottle EYEBOTH PRN (19:59)
[2017-06-13] MEDS: oxyCODONE 5 MG Tab PO PRN (22:28)
[2017-06-14] MEDS: LORazepam 0.5 MG Tab PO SCH (07:52)
[2017-06-14] MEDS: Doxazosin 4 MG Tab PO SCH ×2 (07:53→19:38)
[2017-06-14] MEDS: Carvedilol 6.25 MG Tab PO SCH ×2 (07:53→19:41)
[2017-06-14] MEDS: Losartan 50 MG Tab PO SCH (07:54)
[2017-06-14] MEDS: Lutein/Minerals/Vitamin C/Vitamin E Acetate Cap PO SCH ×2 (07:55→17:24)
[2017-06-14] MEDS: Clopidogrel 75 MG Tab PO SCH (07:55)
[2017-06-14] MEDS: Furosemide 40 MG Tab PO SCH (07:55)
[2017-06-14] MEDS: Omeprazole 20 MG Cap.CR PO SCH (07:56)
[2017-06-14] MEDS: predniSONE 5 MG Tab PO SCH (07:56)
[2017-06-14] MEDS: Sodium Chloride 0.9% 10 ML Syringe FLUSH SCH ×2 (07:57→19:42)
[2017-06-14] MEDS: Multivitamin Tab PO SCH (07:58)
[2017-06-14] MEDS: Acetaminophen 650 MG Tab.ER PO SCH ×2 (07:58→19:43)
[2017-06-14] MEDS: Levothyroxine 50 MCG Tab PO SCH (07:58)
[2017-06-14] MEDS: Polyvinyl Alcohol 1.4% Ophth Soln 15 ML Bottle EYEBOTH PRN (08:59)
[2017-06-14] MEDS ORDERED: Sodium Chloride 0.9% 250 ML IV SCH (10:00)
[2017-06-14] MEDS: oxyCODONE 5 MG Tab PO PRN ×2 (13:27→22:28)
[2017-06-14] MEDS ORDERED: Furosemide 20 MG Tab PO ONE (16:39)
[2017-06-14] MEDS: LORazepam 1 MG Tab PO SCH (19:36)
[2017-06-14] MEDS ORDERED: Labetalol 20 MG/4 ML Syringe IVPUSH ONE (19:37)
[2017-06-14] MEDS: Lactobacillus Rhamnosus GG (Probiotic) Cap PO SCH (19:42)
[2017-06-14] MEDS: Isosorbide Mononitrate 60 MG Tab.ER PO SCH (19:42)
[2017-06-14] MEDS: Cholecalciferol (Vitamin D3) 1,000 Unit Tab PO SCH (19:43)
[2017-06-14] MEDS ORDERED: Sodium Chloride 0.9% 10 ML Syringe FLUSH PRN (20:00)
[2017-06-14] MEDS ORDERED: LORazepam 2 MG/ML SDV IVPUSH ONE (20:26)
--- NOTE | 2017-06-14 20:29 | PCM.SN ---
- Free Text/Narrative Note: Contacted by nursing staff after patient's BP readings were noted to be increasing. Patient comfortable and otherwise without acute complaint/neuro changes/headache. Has history of malignant hypertension/sudden increases. BP max at 230/90 at that time. Given single dose of Labetolol, BP improved to 170/70. Dose of Ativan also given as nursing has noticed that patient anxiety has contributed to rises in past. Will have nursing staff continue to monitor patient's BP intermittently over the night and will treat further as needed.
[2017-06-15] MEDS: LORazepam 0.5 MG Tab PO SCH (08:00)
[2017-06-15] MEDS: Doxazosin 4 MG Tab PO SCH ×2 (08:01→19:09)
[2017-06-15] MEDS: Carvedilol 6.25 MG Tab PO SCH ×2 (08:01→19:09)
[2017-06-15] MEDS: Losartan 50 MG Tab PO SCH (08:02)
[2017-06-15] MEDS: Lutein/Minerals/Vitamin C/Vitamin E Acetate Cap PO SCH ×2 (08:02→17:28)
[2017-06-15] MEDS: Furosemide 40 MG Tab PO SCH (08:02)
[2017-06-15] MEDS: Clopidogrel 75 MG Tab PO SCH (08:03)
[2017-06-15] MEDS: Omeprazole 20 MG Cap.CR PO SCH (08:03)
[2017-06-15] MEDS: predniSONE 5 MG Tab PO SCH (08:04)
[2017-06-15] MEDS: Sodium Chloride 0.9% 10 ML Syringe FLUSH SCH (08:05)
[2017-06-15] MEDS: Acetaminophen 650 MG Tab.ER PO SCH ×2 (08:06→19:12)
[2017-06-15] MEDS: Multivitamin Tab PO SCH (08:06)
[2017-06-15] MEDS: Levothyroxine 50 MCG Tab PO SCH (08:06)
[2017-06-15] MEDS: oxyCODONE 5 MG Tab PO PRN ×2 (10:31→19:17)
[2017-06-15] MEDS: Isosorbide Mononitrate 60 MG Tab.ER PO SCH (19:11)
[2017-06-15] MEDS: Lactobacillus Rhamnosus GG (Probiotic) Cap PO SCH (19:13)
[2017-06-15] MEDS: Cholecalciferol (Vitamin D3) 1,000 Unit Tab PO SCH (19:13)
[2017-06-15] MEDS: LORazepam 1 MG Tab PO SCH (19:15)
[2017-06-15] MEDS ORDERED: NIFEdipine 10 MG Cap PO ONE (20:08)
[2017-06-16] MEDS: LORazepam 0.5 MG Tab PO SCH (07:30)
[2017-06-16] MEDS: oxyCODONE 5 MG Tab PO PRN (07:31)
[2017-06-16] MEDS: Carvedilol 6.25 MG Tab PO SCH ×2 (07:33→19:19)
[2017-06-16] MEDS: Doxazosin 4 MG Tab PO SCH ×2 (07:33→19:18)
[2017-06-16] MEDS: Furosemide 40 MG Tab PO SCH (07:34)
[2017-06-16] MEDS: Losartan 50 MG Tab PO SCH (07:34)
[2017-06-16] MEDS: Lutein/Minerals/Vitamin C/Vitamin E Acetate Cap PO SCH ×2 (07:34→17:13)
[2017-06-16] MEDS: Clopidogrel 75 MG Tab PO SCH (07:35)
[2017-06-16] MEDS: Omeprazole 20 MG Cap.CR PO SCH (07:35)
[2017-06-16] MEDS: predniSONE 5 MG Tab PO SCH (07:36)
[2017-06-16] MEDS: Levothyroxine 50 MCG Tab PO SCH (07:36)
[2017-06-16] MEDS: Multivitamin Tab PO SCH (07:37)
[2017-06-16] MEDS: Acetaminophen 650 MG Tab.ER PO SCH ×2 (07:37→19:22)
[2017-06-16] MEDS: LORazepam 1 MG Tab PO SCH (19:17)
[2017-06-16] MEDS: Lactobacillus Rhamnosus GG (Probiotic) Cap PO SCH (19:20)
[2017-06-16] MEDS: amLODIPine 5 MG Tab PO SCH (19:21)
[2017-06-16] MEDS: Isosorbide Mononitrate 60 MG Tab.ER PO SCH (19:21)
[2017-06-16] MEDS: Cholecalciferol (Vitamin D3) 1,000 Unit Tab PO SCH (19:23)
[2017-06-17] MEDS: oxyCODONE 5 MG Tab PO PRN ×2 (00:58→19:33)
[2017-06-17] MEDS: LORazepam 0.5 MG Tab PO SCH (07:43)
[2017-06-17] MEDS: Losartan 50 MG Tab PO SCH (07:44)
[2017-06-17] MEDS: Doxazosin 4 MG Tab PO SCH (07:44)
[2017-06-17] MEDS: Carvedilol 6.25 MG Tab PO SCH ×2 (07:44→19:34)
[2017-06-17] MEDS: Furosemide 40 MG Tab PO SCH (07:45)
[2017-06-17] MEDS: amLODIPine 5 MG Tab PO SCH ×2 (07:46→19:37)
[2017-06-17] MEDS: Omeprazole 20 MG Cap.CR PO SCH (07:46)
[2017-06-17] MEDS: Lutein/Minerals/Vitamin C/Vitamin E Acetate Cap PO SCH ×2 (07:46→17:24)
[2017-06-17] MEDS: Levothyroxine 50 MCG Tab PO SCH (07:47)
[2017-06-17] MEDS: Clopidogrel 75 MG Tab PO SCH (07:47)
[2017-06-17] MEDS: predniSONE 5 MG Tab PO SCH (07:47)
[2017-06-17] MEDS: Multivitamin Tab PO SCH (07:48)
[2017-06-17] MEDS: Acetaminophen 650 MG Tab.ER PO SCH ×2 (07:48→19:36)
[2017-06-17] MEDS: hydrALAZINE 50 MG Tab PO SCH (18:00)
[2017-06-17] MEDS: LORazepam 1 MG Tab PO SCH (19:32)
[2017-06-17] MEDS: Lactobacillus Rhamnosus GG (Probiotic) Cap PO SCH (19:35)
[2017-06-17] MEDS: Isosorbide Mononitrate 60 MG Tab.ER PO SCH (19:35)
[2017-06-17] MEDS: Cholecalciferol (Vitamin D3) 1,000 Unit Tab PO SCH (19:38)
[2017-06-18] MEDS: Lutein/Minerals/Vitamin C/Vitamin E Acetate Cap PO SCH ×2 (07:57→17:06)
[2017-06-18] MEDS: Acetaminophen 650 MG Tab.ER PO SCH ×2 (07:58→19:31)
[2017-06-18] MEDS: Multivitamin Tab PO SCH (07:58)
[2017-06-18] MEDS: LORazepam 0.5 MG Tab PO SCH (08:03)
[2017-06-18] MEDS: Carvedilol 6.25 MG Tab PO SCH ×2 (08:05→19:29)
[2017-06-18] MEDS: Losartan 50 MG Tab PO SCH (08:10)
[2017-06-18] MEDS: Furosemide 40 MG Tab PO SCH (08:11)
[2017-06-18] MEDS: amLODIPine 5 MG Tab PO SCH (08:11)
[2017-06-18] MEDS: Omeprazole 20 MG Cap.CR PO SCH (08:12)
[2017-06-18] MEDS: Clopidogrel 75 MG Tab PO SCH (08:13)
[2017-06-18] MEDS: predniSONE 5 MG Tab PO SCH (08:13)
[2017-06-18] MEDS: Levothyroxine 50 MCG Tab PO SCH (08:14)
[2017-06-18] MEDS: hydrALAZINE 50 MG Tab PO SCH ×3 (08:51→17:05)
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
[2017-06-18] MEDS: LORazepam 1 MG Tab PO SCH (19:28)
[2017-06-18] MEDS: Lactobacillus Rhamnosus GG (Probiotic) Cap PO SCH (19:30)
[2017-06-18] MEDS: Isosorbide Mononitrate 60 MG Tab.ER PO SCH (19:30)
[2017-06-18] MEDS: Cholecalciferol (Vitamin D3) 1,000 Unit Tab PO SCH (19:32)
[2017-06-19] MEDS ORDERED: amLODIPine 5 MG Tab PO SCH (08:00)
[2017-06-19] MEDS: hydrALAZINE 50 MG Tab PO SCH ×3 (08:21→17:31)
[2017-06-19] MEDS: Carvedilol 6.25 MG Tab PO SCH ×2 (08:22→19:56)
[2017-06-19] MEDS: LORazepam 0.5 MG Tab PO SCH (08:22)
[2017-06-19] MEDS: Losartan 50 MG Tab PO SCH (08:23)
[2017-06-19] MEDS: Furosemide 40 MG Tab PO SCH (08:23)
[2017-06-19] MEDS: Lutein/Minerals/Vitamin C/Vitamin E Acetate Cap PO SCH ×2 (08:25→17:32)
[2017-06-19] MEDS: Omeprazole 20 MG Cap.CR PO SCH (08:25)
[2017-06-19] MEDS: Clopidogrel 75 MG Tab PO SCH (08:26)
[2017-06-19] MEDS: predniSONE 5 MG Tab PO SCH (08:27)
[2017-06-19] MEDS: Acetaminophen 650 MG Tab.ER PO SCH ×2 (08:28→20:03)
[2017-06-19] MEDS: Levothyroxine 50 MCG Tab PO SCH (08:28)
[2017-06-19] MEDS: Multivitamin Tab PO SCH (08:28)
[2017-06-19] MEDS ORDERED: NIFEdipine 10 MG Cap PO ONE (10:45)
[2017-06-19] MEDS: Cyclobenzaprine 10 MG Tab PO PRN (13:48)
[2017-06-19] MEDS: LORazepam 1 MG Tab PO SCH (19:53)
[2017-06-19] MEDS: Lactobacillus Rhamnosus GG (Probiotic) Cap PO SCH (20:02)
[2017-06-19] MEDS: Isosorbide Mononitrate 60 MG Tab.ER PO SCH (20:03)
[2017-06-19] MEDS: Cholecalciferol (Vitamin D3) 1,000 Unit Tab PO SCH (20:06)
[2017-06-20] MEDS: hydrALAZINE 50 MG Tab PO SCH ×3 (08:04→17:22)
[2017-06-20] MEDS: LORazepam 0.5 MG Tab PO SCH (08:05)
[2017-06-20] MEDS: Levothyroxine 50 MCG Tab PO SCH (08:06)
[2017-06-20] MEDS: predniSONE 5 MG Tab PO SCH (08:06)
[2017-06-20] MEDS: Clopidogrel 75 MG Tab PO SCH (08:07)
[2017-06-20] MEDS: Furosemide 40 MG Tab PO SCH (08:07)
[2017-06-20] MEDS: Omeprazole 20 MG Cap.CR PO SCH (08:07)
[2017-06-20] MEDS: Carvedilol 6.25 MG Tab PO SCH ×2 (08:08→19:26)
[2017-06-20] MEDS: Losartan 50 MG Tab PO SCH (08:09)
[2017-06-20] MEDS: Isosorbide Mononitrate 60 MG Tab.ER PO SCH ×2 (08:10→19:27)
[2017-06-20] MEDS: Lutein/Minerals/Vitamin C/Vitamin E Acetate Cap PO SCH ×2 (08:11→17:22)
[2017-06-20] MEDS: Acetaminophen 650 MG Tab.ER PO SCH ×2 (08:12→19:28)
[2017-06-20] MEDS: Multivitamin Tab PO SCH (08:12)
[2017-06-20] MEDS: LORazepam 1 MG Tab PO SCH (19:21)
[2017-06-20] MEDS: oxyCODONE 5 MG Tab PO PRN (19:22)
[2017-06-20] MEDS: Lactobacillus Rhamnosus GG (Probiotic) Cap PO SCH (19:24)
[2017-06-20] MEDS: amLODIPine 5 MG Tab PO SCH (19:27)
[2017-06-20] MEDS: Cholecalciferol (Vitamin D3) 1,000 Unit Tab PO SCH (19:29)
[2017-06-21] MEDS: hydrALAZINE 50 MG Tab PO SCH ×3 (07:55→17:31)
[2017-06-21] MEDS: LORazepam 0.5 MG Tab PO SCH (07:56)
[2017-06-21] MEDS: Carvedilol 6.25 MG Tab PO SCH ×2 (07:57→19:18)
[2017-06-21] MEDS: Losartan 50 MG Tab PO SCH (07:58)
[2017-06-21] MEDS: Isosorbide Mononitrate 60 MG Tab.ER PO SCH ×2 (07:59→19:20)
[2017-06-21] MEDS: Lutein/Minerals/Vitamin C/Vitamin E Acetate Cap PO SCH ×2 (07:59→17:32)
[2017-06-21] MEDS: Furosemide 40 MG Tab PO SCH (07:59)
[2017-06-21] MEDS: Omeprazole 20 MG Cap.CR PO SCH (08:00)
[2017-06-21] MEDS: Clopidogrel 75 MG Tab PO SCH (08:00)
[2017-06-21] MEDS: predniSONE 5 MG Tab PO SCH (08:01)
[2017-06-21] MEDS: Levothyroxine 50 MCG Tab PO SCH (08:01)
[2017-06-21] MEDS: Multivitamin Tab PO SCH (08:02)
[2017-06-21] MEDS: Acetaminophen 650 MG Tab.ER PO SCH ×2 (08:02→19:21)
[2017-06-21] MEDS: LORazepam 1 MG Tab PO SCH (19:15)
[2017-06-21] MEDS: Lactobacillus Rhamnosus GG (Probiotic) Cap PO SCH (19:19)
[2017-06-21] MEDS: amLODIPine 5 MG Tab PO SCH (19:20)
[2017-06-21] MEDS: Cholecalciferol (Vitamin D3) 1,000 Unit Tab PO SCH (19:23)
[2017-06-21] MEDS: Cyclobenzaprine 10 MG Tab PO PRN (21:59)
[2017-06-22] MEDS: hydrALAZINE 50 MG Tab PO SCH ×3 (08:26→17:25)
[2017-06-22] MEDS: Carvedilol 6.25 MG Tab PO SCH ×2 (08:27→19:46)
[2017-06-22] MEDS: LORazepam 0.5 MG Tab PO SCH (08:27)
[2017-06-22] MEDS: Losartan 50 MG Tab PO SCH (08:28)
[2017-06-22] MEDS: Isosorbide Mononitrate 60 MG Tab.ER PO SCH ×2 (08:29→19:48)
[2017-06-22] MEDS: Furosemide 40 MG Tab PO SCH (08:29)
[2017-06-22] MEDS: Lutein/Minerals/Vitamin C/Vitamin E Acetate Cap PO SCH ×2 (08:30→17:25)
[2017-06-22] MEDS: Omeprazole 20 MG Cap.CR PO SCH (08:30)
[2017-06-22] MEDS: Clopidogrel 75 MG Tab PO SCH (08:31)
[2017-06-22] MEDS: predniSONE 5 MG Tab PO SCH (08:31)
[2017-06-22] MEDS: Levothyroxine 50 MCG Tab PO SCH (08:32)
[2017-06-22] MEDS: Multivitamin Tab PO SCH (08:33)
[2017-06-22] MEDS: Acetaminophen 650 MG Tab.ER PO SCH ×2 (08:33→19:55)
[2017-06-22] MEDS: Nitroglycerin 0.4 MG Tab.SL SL PRN ×2 (13:11→13:24)
[2017-06-22] MEDS: LORazepam 1 MG Tab PO SCH (19:45)
[2017-06-22] MEDS: Lactobacillus Rhamnosus GG (Probiotic) Cap PO SCH (19:47)
[2017-06-22] MEDS: amLODIPine 5 MG Tab PO SCH (19:48)
[2017-06-22] MEDS: Cholecalciferol (Vitamin D3) 1,000 Unit Tab PO SCH (19:56)
[2017-06-23] MEDS: hydrALAZINE 50 MG Tab PO SCH ×3 (07:50→17:46)
[2017-06-23] MEDS: LORazepam 0.5 MG Tab PO SCH (07:51)
[2017-06-23] MEDS: Carvedilol 6.25 MG Tab PO SCH ×2 (07:51→19:41)
[2017-06-23] MEDS: Losartan 50 MG Tab PO SCH (07:52)
[2017-06-23] MEDS: Furosemide 40 MG Tab PO SCH (07:52)
[2017-06-23] MEDS: Omeprazole 20 MG Cap.CR PO SCH (07:53)
[2017-06-23] MEDS: Clopidogrel 75 MG Tab PO SCH (07:53)
[2017-06-23] MEDS: Lutein/Minerals/Vitamin C/Vitamin E Acetate Cap PO SCH ×2 (07:53→17:47)
[2017-06-23] MEDS: Multivitamin Tab PO SCH (07:54)
[2017-06-23] MEDS: predniSONE 5 MG Tab PO SCH (07:54)
[2017-06-23] MEDS: Levothyroxine 50 MCG Tab PO SCH (07:54)
[2017-06-23] MEDS: Acetaminophen 650 MG Tab.ER PO SCH ×2 (07:55→19:35)
[2017-06-23] MEDS: Isosorbide Mononitrate 60 MG Tab.ER PO SCH ×2 (08:05→19:34)
[2017-06-23] MEDS: LORazepam 1 MG Tab PO SCH (19:31)
[2017-06-23] MEDS: Lactobacillus Rhamnosus GG (Probiotic) Cap PO SCH (19:32)
[2017-06-23] MEDS: Cholecalciferol (Vitamin D3) 1,000 Unit Tab PO SCH (19:35)
[2017-06-23] MEDS ORDERED: guanFACINE 1 MG Tab PO SCH (20:00)
[2017-06-24] MEDS: LORazepam 0.5 MG Tab PO SCH (07:35)
[2017-06-24] MEDS: Carvedilol 6.25 MG Tab PO SCH (07:36)
[2017-06-24] MEDS: Isosorbide Mononitrate 60 MG Tab.ER PO SCH ×2 (07:36→20:53)
[2017-06-24] MEDS: amLODIPine 5 MG Tab PO SCH (07:37)
[2017-06-24] MEDS: Levothyroxine 50 MCG Tab PO SCH (07:37)
[2017-06-24] MEDS: hydrALAZINE 50 MG Tab PO SCH ×3 (07:37→17:49)
[2017-06-24] MEDS: Clopidogrel 75 MG Tab PO SCH (07:38)
[2017-06-24] MEDS: predniSONE 5 MG Tab PO SCH (07:38)
[2017-06-24] MEDS: Omeprazole 20 MG Cap.CR PO SCH (07:38)
[2017-06-24] MEDS: Losartan 50 MG Tab PO SCH (07:39)
[2017-06-24] MEDS: Furosemide 40 MG Tab PO SCH (07:39)
[2017-06-24] MEDS: Multivitamin Tab PO SCH (07:40)
[2017-06-24] MEDS: Acetaminophen 650 MG Tab.ER PO SCH ×2 (07:40→20:54)
[2017-06-24] MEDS: Lutein/Minerals/Vitamin C/Vitamin E Acetate Cap PO SCH ×2 (07:41→17:50)
[2017-06-24] MEDS ORDERED: NIFEdipine 10 MG Cap PO ONE (17:00)
[2017-06-24] MEDS: LORazepam 0.5 MG Tab PO PRN (17:38)
[2017-06-24] MEDS: LORazepam 1 MG Tab PO SCH (20:44)
[2017-06-24] MEDS: Lactobacillus Rhamnosus GG (Probiotic) Cap PO SCH (20:47)
[2017-06-24] MEDS: guanFACINE 1 MG Tab PO SCH (20:48)
[2017-06-24] MEDS: Cholecalciferol (Vitamin D3) 1,000 Unit Tab PO SCH (20:55)
[2017-06-24] MEDS: Carvedilol 12.5 MG Tab PO SCH (21:11)
[2017-06-24] MEDS: Cyclobenzaprine 10 MG Tab PO PRN (21:37)
[2017-06-25] MEDS: Cyclobenzaprine 10 MG Tab PO PRN ×2 (04:18→21:02)
[2017-06-25] MEDS: Acetaminophen 325 MG Tab PO PRN (04:19)
[2017-06-25] MEDS: hydrALAZINE 50 MG Tab PO SCH ×3 (07:47→17:36)
[2017-06-25] MEDS: LORazepam 0.5 MG Tab PO SCH (07:48)
[2017-06-25] MEDS: Losartan 50 MG Tab PO SCH (07:49)
[2017-06-25] MEDS: Isosorbide Mononitrate 60 MG Tab.ER PO SCH ×2 (07:50→19:43)
[2017-06-25] MEDS: Furosemide 40 MG Tab PO SCH (07:50)
[2017-06-25] MEDS: amLODIPine 5 MG Tab PO SCH (07:51)
[2017-06-25] MEDS: Lutein/Minerals/Vitamin C/Vitamin E Acetate Cap PO SCH ×2 (07:51→17:36)
[2017-06-25] MEDS: predniSONE 5 MG Tab PO SCH (07:52)
[2017-06-25] MEDS: Omeprazole 20 MG Cap.CR PO SCH (07:52)
[2017-06-25] MEDS: Clopidogrel 75 MG Tab PO SCH (07:52)
[2017-06-25] MEDS: Levothyroxine 50 MCG Tab PO SCH (07:53)
[2017-06-25] MEDS: Multivitamin Tab PO SCH (07:54)
[2017-06-25] MEDS: Acetaminophen 650 MG Tab.ER PO SCH ×2 (07:54→19:44)
[2017-06-25] MEDS: Carvedilol 12.5 MG Tab PO SCH ×2 (08:52→19:41)
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
[2017-06-25] MEDS: LORazepam 1 MG Tab PO SCH (19:40)
[2017-06-25] MEDS: Lactobacillus Rhamnosus GG (Probiotic) Cap PO SCH (19:40)
[2017-06-25] MEDS: guanFACINE 1 MG Tab PO SCH (19:42)
[2017-06-25] MEDS: Cholecalciferol (Vitamin D3) 1,000 Unit Tab PO SCH (19:44)
[2017-06-26] MEDS: hydrALAZINE 50 MG Tab PO SCH ×3 (07:47→17:09)
[2017-06-26] MEDS: LORazepam 0.5 MG Tab PO SCH (07:48)
[2017-06-26] MEDS: Carvedilol 12.5 MG Tab PO SCH ×2 (07:49→19:32)
[2017-06-26] MEDS: Losartan 50 MG Tab PO SCH (07:49)
[2017-06-26] MEDS: amLODIPine 5 MG Tab PO SCH (07:50)
[2017-06-26] MEDS: Isosorbide Mononitrate 60 MG Tab.ER PO SCH ×2 (07:50→19:35)
[2017-06-26] MEDS: Furosemide 40 MG Tab PO SCH (07:50)
[2017-06-26] MEDS: Omeprazole 20 MG Cap.CR PO SCH (07:51)
[2017-06-26] MEDS: Lutein/Minerals/Vitamin C/Vitamin E Acetate Cap PO SCH ×2 (07:51→17:09)
[2017-06-26] MEDS: Clopidogrel 75 MG Tab PO SCH (07:51)
[2017-06-26] MEDS: predniSONE 5 MG Tab PO SCH (07:52)
[2017-06-26] MEDS: Levothyroxine 50 MCG Tab PO SCH (07:52)
[2017-06-26] MEDS: Multivitamin Tab PO SCH (07:52)
[2017-06-26] MEDS: Acetaminophen 650 MG Tab.ER PO SCH ×2 (07:53→19:36)
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
[2017-06-26] MEDS: LORazepam 1 MG Tab PO SCH (19:30)
[2017-06-26] MEDS: Lactobacillus Rhamnosus GG (Probiotic) Cap PO SCH (19:34)
[2017-06-26] MEDS: guanFACINE 1 MG Tab PO SCH (19:34)
[2017-06-26] MEDS: Cholecalciferol (Vitamin D3) 1,000 Unit Tab PO SCH (19:37)
[2017-06-27] MEDS: hydrALAZINE 50 MG Tab PO SCH ×3 (07:43→17:22)
[2017-06-27] MEDS: Carvedilol 12.5 MG Tab PO SCH ×2 (07:44→19:14)
[2017-06-27] MEDS: LORazepam 0.5 MG Tab PO SCH (07:44)
[2017-06-27] MEDS: Losartan 50 MG Tab PO SCH (07:45)
[2017-06-27] MEDS: Isosorbide Mononitrate 60 MG Tab.ER PO SCH ×2 (07:46→19:15)
[2017-06-27] MEDS: Furosemide 40 MG Tab PO SCH (07:46)
[2017-06-27] MEDS: Lutein/Minerals/Vitamin C/Vitamin E Acetate Cap PO SCH ×2 (07:47→17:22)
[2017-06-27] MEDS: Omeprazole 20 MG Cap.CR PO SCH (07:47)
[2017-06-27] MEDS: Clopidogrel 75 MG Tab PO SCH (07:47)
[2017-06-27] MEDS: Levothyroxine 50 MCG Tab PO SCH (07:48)
[2017-06-27] MEDS: predniSONE 5 MG Tab PO SCH (07:48)
[2017-06-27] MEDS: Multivitamin Tab PO SCH (07:49)
[2017-06-27] MEDS: Acetaminophen 650 MG Tab.ER PO SCH ×2 (07:49→19:17)
[2017-06-27] MEDS: LORazepam 1 MG Tab PO SCH (19:06)
[2017-06-27] MEDS: Lactobacillus Rhamnosus GG (Probiotic) Cap PO SCH (19:13)
[2017-06-27] MEDS: guanFACINE 1 MG Tab PO SCH (19:14)
[2017-06-27] MEDS: amLODIPine 5 MG Tab PO SCH (19:15)
[2017-06-27] MEDS: Cholecalciferol (Vitamin D3) 1,000 Unit Tab PO SCH (19:16)
[2017-06-27] MEDS ORDERED: Losartan 50 MG Tab PO SCH (20:00)
[2017-06-27] MEDS: oxyCODONE 5 MG Tab PO PRN (22:41)
[2017-06-28] MEDS: hydrALAZINE 50 MG Tab PO SCH ×3 (07:52→17:31)
[2017-06-28] MEDS: LORazepam 0.5 MG Tab PO SCH (07:53)
[2017-06-28] MEDS: Carvedilol 12.5 MG Tab PO SCH ×2 (07:53→19:13)
[2017-06-28] MEDS: Losartan 50 MG Tab PO SCH (07:54)
[2017-06-28] MEDS: Lutein/Minerals/Vitamin C/Vitamin E Acetate Cap PO SCH ×2 (07:55→17:31)
[2017-06-28] MEDS: Isosorbide Mononitrate 60 MG Tab.ER PO SCH ×2 (07:55→19:15)
[2017-06-28] MEDS: Furosemide 40 MG Tab PO SCH (07:55)
[2017-06-28] MEDS: Clopidogrel 75 MG Tab PO SCH (07:56)
[2017-06-28] MEDS: predniSONE 5 MG Tab PO SCH (07:56)
[2017-06-28] MEDS: Omeprazole 20 MG Cap.CR PO SCH (07:56)
[2017-06-28] MEDS: Acetaminophen 650 MG Tab.ER PO SCH ×2 (07:57→19:15)
[2017-06-28] MEDS: Levothyroxine 50 MCG Tab PO SCH (07:57)
[2017-06-28] MEDS: Multivitamin Tab PO SCH (07:57)
[2017-06-28] MEDS: LORazepam 1 MG Tab PO SCH (19:12)
[2017-06-28] MEDS: Lactobacillus Rhamnosus GG (Probiotic) Cap PO SCH (19:13)
[2017-06-28] MEDS: guanFACINE 1 MG Tab PO SCH (19:14)
[2017-06-28] MEDS: amLODIPine 5 MG Tab PO SCH (19:15)
[2017-06-28] MEDS: Cholecalciferol (Vitamin D3) 1,000 Unit Tab PO SCH (19:16)
[2017-06-29] MEDS: hydrALAZINE 50 MG Tab PO SCH ×3 (07:33→17:30)
[2017-06-29] MEDS: LORazepam 0.5 MG Tab PO SCH (07:34)
[2017-06-29] MEDS: Carvedilol 12.5 MG Tab PO SCH ×2 (07:35→19:25)
[2017-06-29] MEDS: Losartan 50 MG Tab PO SCH (07:35)
[2017-06-29] MEDS: Furosemide 40 MG Tab PO SCH (07:36)
[2017-06-29] MEDS: Isosorbide Mononitrate 60 MG Tab.ER PO SCH ×2 (07:36→19:25)
[2017-06-29] MEDS: Omeprazole 20 MG Cap.CR PO SCH (07:37)
[2017-06-29] MEDS: Lutein/Minerals/Vitamin C/Vitamin E Acetate Cap PO SCH ×2 (07:37→17:30)
[2017-06-29] MEDS: predniSONE 5 MG Tab PO SCH (07:38)
[2017-06-29] MEDS: Clopidogrel 75 MG Tab PO SCH (07:38)
[2017-06-29] MEDS: Multivitamin Tab PO SCH (07:39)
[2017-06-29] MEDS: Levothyroxine 50 MCG Tab PO SCH (07:39)
[2017-06-29] MEDS: Acetaminophen 650 MG Tab.ER PO SCH ×2 (07:40→19:21)
[2017-06-29] MEDS: LORazepam 1 MG Tab PO SCH (19:18)
[2017-06-29] MEDS: oxyCODONE 5 MG Tab PO PRN (19:20)
[2017-06-29] MEDS: amLODIPine 5 MG Tab PO SCH (19:25)
[2017-06-29] MEDS: guanFACINE 1 MG Tab PO SCH (19:25)
[2017-06-29] MEDS: Lactobacillus Rhamnosus GG (Probiotic) Cap PO SCH (19:26)
[2017-06-29] MEDS: Cholecalciferol (Vitamin D3) 1,000 Unit Tab PO SCH (19:27)
[2017-06-30] MEDS: hydrALAZINE 50 MG Tab PO SCH ×3 (07:51→17:26)
[2017-06-30] MEDS: LORazepam 0.5 MG Tab PO SCH (07:53)
[2017-06-30] MEDS: Carvedilol 12.5 MG Tab PO SCH ×2 (07:55→19:31)
[2017-06-30] MEDS: Losartan 50 MG Tab PO SCH (07:56)
[2017-06-30] MEDS: Isosorbide Mononitrate 60 MG Tab.ER PO SCH ×2 (07:57→19:33)
[2017-06-30] MEDS: Furosemide 40 MG Tab PO SCH (07:58)
[2017-06-30] MEDS: Lutein/Minerals/Vitamin C/Vitamin E Acetate Cap PO SCH ×2 (07:58→17:25)
[2017-06-30] MEDS: Omeprazole 20 MG Cap.CR PO SCH (07:59)
[2017-06-30] MEDS: predniSONE 5 MG Tab PO SCH (08:00)
[2017-06-30] MEDS: Clopidogrel 75 MG Tab PO SCH (08:00)
[2017-06-30] MEDS: Multivitamin Tab PO SCH (08:01)
[2017-06-30] MEDS: Levothyroxine 50 MCG Tab PO SCH (08:01)
[2017-06-30] MEDS: Acetaminophen 650 MG Tab.ER PO SCH ×2 (08:02→19:34)
[2017-06-30] MEDS: LORazepam 1 MG Tab PO SCH (19:28)
[2017-06-30] MEDS: Lactobacillus Rhamnosus GG (Probiotic) Cap PO SCH (19:32)
[2017-06-30] MEDS: guanFACINE 1 MG Tab PO SCH (19:32)
[2017-06-30] MEDS: amLODIPine 5 MG Tab PO SCH (19:34)
[2017-06-30] MEDS: Cholecalciferol (Vitamin D3) 1,000 Unit Tab PO SCH (19:35)
[2017-07-01] MEDS: hydrALAZINE 50 MG Tab PO SCH ×3 (07:33→17:29)
[2017-07-01] MEDS: LORazepam 0.5 MG Tab PO SCH (07:34)
[2017-07-01] MEDS: Carvedilol 12.5 MG Tab PO SCH ×2 (07:34→19:16)
[2017-07-01] MEDS: Isosorbide Mononitrate 60 MG Tab.ER PO SCH ×2 (07:35→19:17)
[2017-07-01] MEDS: Losartan 50 MG Tab PO SCH (07:35)
[2017-07-01] MEDS: Lutein/Minerals/Vitamin C/Vitamin E Acetate Cap PO SCH ×2 (07:36→17:29)
[2017-07-01] MEDS: Omeprazole 20 MG Cap.CR PO SCH (07:36)
[2017-07-01] MEDS: Furosemide 40 MG Tab PO SCH (07:36)
[2017-07-01] MEDS: Levothyroxine 50 MCG Tab PO SCH (07:37)
[2017-07-01] MEDS: Clopidogrel 75 MG Tab PO SCH (07:37)
[2017-07-01] MEDS: predniSONE 5 MG Tab PO SCH (07:37)
[2017-07-01] MEDS: Acetaminophen 650 MG Tab.ER PO SCH ×2 (07:38→19:20)
[2017-07-01] MEDS: Multivitamin Tab PO SCH (07:38)
[2017-07-01] MEDS: guanFACINE 1 MG Tab PO SCH (19:17)
[2017-07-01] MEDS: amLODIPine 5 MG Tab PO SCH (19:19)
[2017-07-01] MEDS: Cholecalciferol (Vitamin D3) 1,000 Unit Tab PO SCH (19:20)
[2017-07-01] MEDS: Lactobacillus Rhamnosus GG (Probiotic) Cap PO SCH (19:21)
[2017-07-01] MEDS: LORazepam 1 MG Tab PO SCH (19:22)
[2017-07-02] MEDS: hydrALAZINE 50 MG Tab PO SCH ×3 (07:37→17:33)
[2017-07-02] MEDS: Carvedilol 12.5 MG Tab PO SCH (07:38)
[2017-07-02] MEDS: LORazepam 0.5 MG Tab PO SCH (07:38)
[2017-07-02] MEDS: Isosorbide Mononitrate 60 MG Tab.ER PO SCH ×2 (07:39→19:12)
[2017-07-02] MEDS: Losartan 50 MG Tab PO SCH (07:39)
[2017-07-02] MEDS: Lutein/Minerals/Vitamin C/Vitamin E Acetate Cap PO SCH ×2 (07:40→17:33)
[2017-07-02] MEDS: Omeprazole 20 MG Cap.CR PO SCH (07:40)
[2017-07-02] MEDS: Furosemide 40 MG Tab PO SCH (07:40)
[2017-07-02] MEDS: Clopidogrel 75 MG Tab PO SCH (07:41)
[2017-07-02] MEDS: predniSONE 5 MG Tab PO SCH (07:41)
[2017-07-02] MEDS: Multivitamin Tab PO SCH (07:42)
[2017-07-02] MEDS: Levothyroxine 50 MCG Tab PO SCH (07:42)
[2017-07-02] MEDS: Acetaminophen 650 MG Tab.ER PO SCH ×2 (07:42→19:13)
[2017-07-02] MEDS: LORazepam 1 MG Tab PO SCH (19:09)
[2017-07-02] MEDS: guanFACINE 1 MG Tab PO SCH (19:11)
[2017-07-02] MEDS: Lactobacillus Rhamnosus GG (Probiotic) Cap PO SCH (19:11)
[2017-07-02] MEDS: Cholecalciferol (Vitamin D3) 1,000 Unit Tab PO SCH (19:12)
[2017-07-02] MEDS: amLODIPine 5 MG Tab PO SCH (19:12)
[2017-07-02] MEDS: Carvedilol 25 MG Tab PO SCH (19:19)
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
[2017-07-03] MEDS: hydrALAZINE 50 MG Tab PO SCH ×4 (07:23→17:18)
[2017-07-03] MEDS: LORazepam 0.5 MG Tab PO SCH (07:25)
[2017-07-03] MEDS: Losartan 50 MG Tab PO SCH (07:29)
[2017-07-03] MEDS: Isosorbide Mononitrate 60 MG Tab.ER PO SCH ×2 (07:29→19:44)
[2017-07-03] MEDS: Lutein/Minerals/Vitamin C/Vitamin E Acetate Cap PO SCH ×2 (07:30→17:18)
[2017-07-03] MEDS: Furosemide 40 MG Tab PO SCH (07:30)
[2017-07-03] MEDS: Omeprazole 20 MG Cap.CR PO SCH (07:31)
[2017-07-03] MEDS: Clopidogrel 75 MG Tab PO SCH (07:31)
[2017-07-03] MEDS: predniSONE 5 MG Tab PO SCH (07:32)
[2017-07-03] MEDS: Levothyroxine 50 MCG Tab PO SCH (07:33)
[2017-07-03] MEDS: Multivitamin Tab PO SCH (07:33)
[2017-07-03] MEDS: Acetaminophen 650 MG Tab.ER PO SCH ×2 (07:34→19:49)
[2017-07-03] MEDS: Carvedilol 25 MG Tab PO SCH (07:40)
[2017-07-03] MEDS: LORazepam 1 MG Tab PO SCH (19:41)
[2017-07-03] MEDS: guanFACINE 1 MG Tab PO SCH (19:43)
[2017-07-03] MEDS: Lactobacillus Rhamnosus GG (Probiotic) Cap PO SCH (19:43)
[2017-07-03] MEDS: Metoprolol Tartrate 25 MG Tab PO SCH (19:45)
[2017-07-03] MEDS: amLODIPine 5 MG Tab PO SCH (19:48)
[2017-07-03] MEDS: Cholecalciferol (Vitamin D3) 1,000 Unit Tab PO SCH (19:49)
[2017-07-04] MEDS: hydrALAZINE 50 MG Tab PO SCH ×3 (07:40→17:38)
[2017-07-04] MEDS: LORazepam 0.5 MG Tab PO SCH (07:41)
[2017-07-04] MEDS: Furosemide 40 MG Tab PO SCH (07:43)
[2017-07-04] MEDS: Isosorbide Mononitrate 60 MG Tab.ER PO SCH ×2 (07:43→19:15)
[2017-07-04] MEDS: Metoprolol Tartrate 25 MG Tab PO SCH ×2 (07:44→19:16)
[2017-07-04] MEDS: Lutein/Minerals/Vitamin C/Vitamin E Acetate Cap PO SCH ×2 (07:45→17:39)
[2017-07-04] MEDS: Clopidogrel 75 MG Tab PO SCH (07:46)
[2017-07-04] MEDS: Omeprazole 20 MG Cap.CR PO SCH (07:46)
[2017-07-04] MEDS: Levothyroxine 50 MCG Tab PO SCH (07:47)
[2017-07-04] MEDS: predniSONE 5 MG Tab PO SCH (07:47)
[2017-07-04] MEDS: Multivitamin Tab PO SCH (07:48)
[2017-07-04] MEDS: Acetaminophen 650 MG Tab.ER PO SCH ×2 (07:48→19:18)
[2017-07-04] MEDS: Losartan 50 MG Tab PO SCH (17:38)
[2017-07-04] MEDS: LORazepam 1 MG Tab PO SCH (19:12)
[2017-07-04] MEDS: Lactobacillus Rhamnosus GG (Probiotic) Cap PO SCH (19:14)
[2017-07-04] MEDS: guanFACINE 1 MG Tab PO SCH (19:14)
[2017-07-04] MEDS: amLODIPine 5 MG Tab PO SCH (19:17)
[2017-07-04] MEDS: Cholecalciferol (Vitamin D3) 1,000 Unit Tab PO SCH (19:18)
[2017-07-05] MEDS: hydrALAZINE 50 MG Tab PO SCH ×3 (07:40→17:30)
[2017-07-05] MEDS: LORazepam 0.5 MG Tab PO SCH (07:40)
[2017-07-05] MEDS: Furosemide 40 MG Tab PO SCH (07:41)
[2017-07-05] MEDS: Isosorbide Mononitrate 60 MG Tab.ER PO SCH ×2 (07:41→19:14)
[2017-07-05] MEDS: Metoprolol Tartrate 25 MG Tab PO SCH ×2 (07:42→19:15)
[2017-07-05] MEDS: Omeprazole 20 MG Cap.CR PO SCH (07:43)
[2017-07-05] MEDS: Lutein/Minerals/Vitamin C/Vitamin E Acetate Cap PO SCH ×2 (07:43→17:32)
[2017-07-05] MEDS: Clopidogrel 75 MG Tab PO SCH (07:44)
[2017-07-05] MEDS: predniSONE 5 MG Tab PO SCH (07:44)
[2017-07-05] MEDS: Levothyroxine 50 MCG Tab PO SCH (07:45)
[2017-07-05] MEDS: Multivitamin Tab PO SCH (07:45)
[2017-07-05] MEDS: Acetaminophen 650 MG Tab.ER PO SCH ×2 (07:46→19:17)
[2017-07-05] MEDS: Losartan 50 MG Tab PO SCH (17:31)
[2017-07-05] MEDS: LORazepam 1 MG Tab PO SCH (19:12)
[2017-07-05] MEDS: Lactobacillus Rhamnosus GG (Probiotic) Cap PO SCH (19:13)
[2017-07-05] MEDS: guanFACINE 1 MG Tab PO SCH (19:14)
[2017-07-05] MEDS: amLODIPine 5 MG Tab PO SCH (19:17)
[2017-07-05] MEDS: Cholecalciferol (Vitamin D3) 1,000 Unit Tab PO SCH (19:18)
[2017-07-06] MEDS: hydrALAZINE 50 MG Tab PO SCH ×3 (07:42→19:43)
[2017-07-06] MEDS: LORazepam 0.5 MG Tab PO SCH (07:43)
[2017-07-06] MEDS: Metoprolol Tartrate 25 MG Tab PO SCH ×2 (07:44→19:47)
[2017-07-06] MEDS: Furosemide 40 MG Tab PO SCH (07:44)
[2017-07-06] MEDS: Isosorbide Mononitrate 60 MG Tab.ER PO SCH ×2 (07:44→19:47)
[2017-07-06] MEDS: Omeprazole 20 MG Cap.CR PO SCH (07:46)
[2017-07-06] MEDS: Lutein/Minerals/Vitamin C/Vitamin E Acetate Cap PO SCH ×2 (07:46→18:09)
[2017-07-06] MEDS: Clopidogrel 75 MG Tab PO SCH (07:47)
[2017-07-06] MEDS: predniSONE 5 MG Tab PO SCH (07:47)
[2017-07-06] MEDS: Multivitamin Tab PO SCH (07:48)
[2017-07-06] MEDS: Levothyroxine 50 MCG Tab PO SCH (07:48)
[2017-07-06] MEDS: Acetaminophen 650 MG Tab.ER PO SCH ×2 (07:49→19:49)
[2017-07-06] MEDS: Losartan 50 MG Tab PO SCH (18:08)
[2017-07-06] MEDS: LORazepam 1 MG Tab PO SCH (19:45)
[2017-07-06] MEDS: Lactobacillus Rhamnosus GG (Probiotic) Cap PO SCH (19:46)
[2017-07-06] MEDS: guanFACINE 1 MG Tab PO SCH (19:46)
[2017-07-06] MEDS: amLODIPine 5 MG Tab PO SCH (19:49)
[2017-07-06] MEDS: Cholecalciferol (Vitamin D3) 1,000 Unit Tab PO SCH (19:49)
[2017-07-07] MEDS: hydrALAZINE 50 MG Tab PO SCH ×3 (07:40→19:08)
[2017-07-07] MEDS: LORazepam 0.5 MG Tab PO SCH (07:41)
[2017-07-07] MEDS: Isosorbide Mononitrate 60 MG Tab.ER PO SCH ×2 (07:42→19:11)
[2017-07-07] MEDS: Furosemide 40 MG Tab PO SCH (07:42)
[2017-07-07] MEDS: Metoprolol Tartrate 25 MG Tab PO SCH ×2 (07:43→19:12)
[2017-07-07] MEDS: Lutein/Minerals/Vitamin C/Vitamin E Acetate Cap PO SCH ×2 (07:45→17:17)
[2017-07-07] MEDS: amLODIPine 5 MG Tab PO SCH ×2 (07:45→19:14)
[2017-07-07] MEDS: Omeprazole 20 MG Cap.CR PO SCH (07:45)
[2017-07-07] MEDS: predniSONE 5 MG Tab PO SCH (07:46)
[2017-07-07] MEDS: Clopidogrel 75 MG Tab PO SCH (07:46)
[2017-07-07] MEDS: Acetaminophen 650 MG Tab.ER PO SCH ×2 (07:47→19:13)
[2017-07-07] MEDS: Multivitamin Tab PO SCH (07:47)
[2017-07-07] MEDS: Levothyroxine 50 MCG Tab PO SCH (07:47)
[2017-07-07] MEDS: Losartan 50 MG Tab PO SCH (17:16)
[2017-07-07] MEDS: LORazepam 1 MG Tab PO SCH (19:09)
[2017-07-07] MEDS: Lactobacillus Rhamnosus GG (Probiotic) Cap PO SCH (19:09)
[2017-07-07] MEDS: guanFACINE 1 MG Tab PO SCH (19:10)
[2017-07-07] MEDS: Cholecalciferol (Vitamin D3) 1,000 Unit Tab PO SCH (19:14)
[2017-07-08] MEDS: hydrALAZINE 50 MG Tab PO SCH ×3 (07:40→19:09)
[2017-07-08] MEDS: LORazepam 0.5 MG Tab PO SCH (07:41)
[2017-07-08] MEDS: Isosorbide Mononitrate 60 MG Tab.ER PO SCH ×2 (07:41→19:15)
[2017-07-08] MEDS: Furosemide 40 MG Tab PO SCH (07:42)
[2017-07-08] MEDS: Metoprolol Tartrate 25 MG Tab PO SCH ×2 (07:42→19:16)
[2017-07-08] MEDS: amLODIPine 5 MG Tab PO SCH ×2 (07:43→17:13)
[2017-07-08] MEDS: Lutein/Minerals/Vitamin C/Vitamin E Acetate Cap PO SCH ×2 (07:44→17:14)
[2017-07-08] MEDS: Omeprazole 20 MG Cap.CR PO SCH (07:44)
[2017-07-08] MEDS: predniSONE 5 MG Tab PO SCH (07:45)
[2017-07-08] MEDS: Clopidogrel 75 MG Tab PO SCH (07:45)
[2017-07-08] MEDS: Multivitamin Tab PO SCH (07:46)
[2017-07-08] MEDS: Levothyroxine 50 MCG Tab PO SCH (07:46)
[2017-07-08] MEDS: Acetaminophen 650 MG Tab.ER PO SCH ×2 (07:46→19:16)
[2017-07-08] MEDS: Acetaminophen 325 MG Tab PO PRN (11:40)
[2017-07-08] MEDS: LORazepam 0.5 MG Tab PO PRN (13:35)
[2017-07-08] MEDS: Losartan 50 MG Tab PO SCH (17:13)
[2017-07-08] MEDS: oxyCODONE 5 MG Tab PO PRN (19:11)
[2017-07-08] MEDS: LORazepam 1 MG Tab PO SCH (19:11)
[2017-07-08] MEDS: Lactobacillus Rhamnosus GG (Probiotic) Cap PO SCH (19:12)
[2017-07-08] MEDS: guanFACINE 1 MG Tab PO SCH (19:13)
[2017-07-08] MEDS: Cholecalciferol (Vitamin D3) 1,000 Unit Tab PO SCH (19:17)
[2017-07-09] MEDS: hydrALAZINE 50 MG Tab PO SCH ×3 (05:04→19:15)
[2017-07-09] MEDS: amLODIPine 5 MG Tab PO SCH ×2 (05:05→17:07)
[2017-07-09] MEDS: Furosemide 40 MG Tab PO SCH (05:06)
[2017-07-09] MEDS: oxyCODONE 5 MG Tab PO PRN ×3 (05:07→19:23)
[2017-07-09] MEDS: LORazepam 0.5 MG Tab PO SCH (07:47)
[2017-07-09] MEDS: Isosorbide Mononitrate 60 MG Tab.ER PO SCH ×2 (07:47→19:18)
[2017-07-09] MEDS: Metoprolol Tartrate 25 MG Tab PO SCH ×2 (07:48→19:19)
[2017-07-09] MEDS: Clopidogrel 75 MG Tab PO SCH (07:51)
[2017-07-09] MEDS: Omeprazole 20 MG Cap.CR PO SCH (07:51)
[2017-07-09] MEDS: Lutein/Minerals/Vitamin C/Vitamin E Acetate Cap PO SCH ×2 (07:51→17:07)
[2017-07-09] MEDS: predniSONE 5 MG Tab PO SCH (07:52)
[2017-07-09] MEDS: Levothyroxine 50 MCG Tab PO SCH (07:52)
[2017-07-09] MEDS: Acetaminophen 650 MG Tab.ER PO SCH ×2 (07:53→19:21)
[2017-07-09] MEDS: Multivitamin Tab PO SCH (07:53)
[2017-07-09] MEDS: LORazepam 0.5 MG Tab PO PRN (10:45)
[2017-07-09] MEDS: Losartan 50 MG Tab PO SCH (17:06)
[2017-07-09] MEDS: LORazepam 1 MG Tab PO SCH (19:16)
[2017-07-09] MEDS: Lactobacillus Rhamnosus GG (Probiotic) Cap PO SCH (19:17)
[2017-07-09] MEDS: guanFACINE 1 MG Tab PO SCH (19:18)
[2017-07-09] MEDS: Cholecalciferol (Vitamin D3) 1,000 Unit Tab PO SCH (19:22)
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
[2017-07-10] MEDS: Furosemide 40 MG Tab PO SCH (05:49)
[2017-07-10] MEDS: hydrALAZINE 50 MG Tab PO SCH ×3 (05:49→19:42)
[2017-07-10] MEDS: amLODIPine 5 MG Tab PO SCH ×2 (05:50→17:34)
[2017-07-10] MEDS: LORazepam 0.5 MG Tab PO SCH (08:00)
[2017-07-10] MEDS: oxyCODONE 5 MG Tab PO PRN (08:01)
[2017-07-10] MEDS: Metoprolol Tartrate 25 MG Tab PO SCH ×2 (08:03→19:48)
[2017-07-10] MEDS: Lutein/Minerals/Vitamin C/Vitamin E Acetate Cap PO SCH ×2 (08:08→17:39)
[2017-07-10] MEDS: Omeprazole 20 MG Cap.CR PO SCH (08:09)
[2017-07-10] MEDS: Clopidogrel 75 MG Tab PO SCH (08:10)
[2017-07-10] MEDS: Levothyroxine 50 MCG Tab PO SCH (08:11)
[2017-07-10] MEDS: predniSONE 5 MG Tab PO SCH (08:11)
[2017-07-10] MEDS: Acetaminophen 650 MG Tab.ER PO SCH ×2 (08:12→19:50)
[2017-07-10] MEDS: Multivitamin Tab PO SCH (08:14)
[2017-07-10] MEDS: Isosorbide Mononitrate 60 MG Tab.ER PO SCH ×2 (08:15→19:48)
[2017-07-10] MEDS ORDERED: hydrOXYzine HCl 50 MG/ML SDV IM ONE (10:00)
[2017-07-10] MEDS: Losartan 50 MG Tab PO SCH (17:32)
[2017-07-10] MEDS: LORazepam 1 MG Tab PO SCH (19:44)
[2017-07-10] MEDS: Lactobacillus Rhamnosus GG (Probiotic) Cap PO SCH (19:46)
[2017-07-10] MEDS: guanFACINE 1 MG Tab PO SCH (19:47)
[2017-07-10] MEDS: Cholecalciferol (Vitamin D3) 1,000 Unit Tab PO SCH (19:51)
[2017-07-11] MEDS: hydrALAZINE 50 MG Tab PO SCH ×3 (05:21→19:42)
[2017-07-11] MEDS: amLODIPine 5 MG Tab PO SCH ×2 (05:21→17:36)
[2017-07-11] MEDS: Furosemide 40 MG Tab PO SCH (05:21)
[2017-07-11] MEDS: LORazepam 0.5 MG Tab PO SCH (07:43)
[2017-07-11] MEDS: Isosorbide Mononitrate 60 MG Tab.ER PO SCH ×2 (07:45→19:45)
[2017-07-11] MEDS: Metoprolol Tartrate 25 MG Tab PO SCH ×2 (07:46→19:45)
[2017-07-11] MEDS: Lutein/Minerals/Vitamin C/Vitamin E Acetate Cap PO SCH ×2 (07:47→17:36)
[2017-07-11] MEDS: Omeprazole 20 MG Cap.CR PO SCH (07:48)
[2017-07-11] MEDS: Clopidogrel 75 MG Tab PO SCH (07:49)
[2017-07-11] MEDS: predniSONE 5 MG Tab PO SCH (07:49)
[2017-07-11] MEDS: Levothyroxine 50 MCG Tab PO SCH (07:50)
[2017-07-11] MEDS: Multivitamin Tab PO SCH (07:51)
[2017-07-11] MEDS: Acetaminophen 650 MG Tab.ER PO SCH ×2 (07:51→19:46)
[2017-07-11] MEDS: Losartan 50 MG Tab PO SCH (17:35)
[2017-07-11] MEDS: LORazepam 1 MG Tab PO SCH (19:43)
[2017-07-11] MEDS: guanFACINE 1 MG Tab PO SCH (19:44)
[2017-07-11] MEDS: Lactobacillus Rhamnosus GG (Probiotic) Cap PO SCH (19:44)
[2017-07-11] MEDS: Cholecalciferol (Vitamin D3) 1,000 Unit Tab PO SCH (19:47)
[2017-07-12] MEDS: hydrALAZINE 50 MG Tab PO SCH ×3 (06:01→19:48)
[2017-07-12] MEDS: Furosemide 40 MG Tab PO SCH (06:01)
[2017-07-12] MEDS: amLODIPine 5 MG Tab PO SCH ×2 (06:02→17:43)
[2017-07-12] MEDS: LORazepam 0.5 MG Tab PO SCH (07:41)
[2017-07-12] MEDS: Isosorbide Mononitrate 60 MG Tab.ER PO SCH ×2 (07:42→19:52)
[2017-07-12] MEDS: Metoprolol Tartrate 25 MG Tab PO SCH ×2 (07:43→19:52)
[2017-07-12] MEDS: Lutein/Minerals/Vitamin C/Vitamin E Acetate Cap PO SCH ×2 (07:44→17:44)
[2017-07-12] MEDS: Omeprazole 20 MG Cap.CR PO SCH (07:45)
[2017-07-12] MEDS: predniSONE 5 MG Tab PO SCH (07:46)
[2017-07-12] MEDS: Clopidogrel 75 MG Tab PO SCH (07:46)
[2017-07-12] MEDS: Levothyroxine 50 MCG Tab PO SCH (07:47)
[2017-07-12] MEDS: Multivitamin Tab PO SCH (07:48)
[2017-07-12] MEDS: Acetaminophen 650 MG Tab.ER PO SCH ×2 (07:48→19:53)
[2017-07-12] MEDS: Losartan 50 MG Tab PO SCH (17:42)
[2017-07-12] MEDS: LORazepam 1 MG Tab PO SCH (19:49)
[2017-07-12] MEDS: Lactobacillus Rhamnosus GG (Probiotic) Cap PO SCH (19:50)
[2017-07-12] MEDS: guanFACINE 1 MG Tab PO SCH (19:51)
[2017-07-12] MEDS: Cholecalciferol (Vitamin D3) 1,000 Unit Tab PO SCH (19:53)
[2017-07-13] MEDS: hydrALAZINE 50 MG Tab PO SCH ×3 (05:32→19:20)
[2017-07-13] MEDS: Furosemide 40 MG Tab PO SCH (05:32)
[2017-07-13] MEDS: amLODIPine 5 MG Tab PO SCH ×2 (05:33→17:24)
[2017-07-13] MEDS: Omeprazole 20 MG Cap.CR PO SCH (07:55)
[2017-07-13] MEDS: predniSONE 5 MG Tab PO SCH (07:55)
[2017-07-13] MEDS: Clopidogrel 75 MG Tab PO SCH (07:55)
[2017-07-13] MEDS: Metoprolol Tartrate 25 MG Tab PO SCH ×2 (07:56→19:25)
[2017-07-13] MEDS: Levothyroxine 50 MCG Tab PO SCH (07:58)
[2017-07-13] MEDS: Lutein/Minerals/Vitamin C/Vitamin E Acetate Cap PO SCH ×2 (07:59→17:25)
[2017-07-13] MEDS: Isosorbide Mononitrate 60 MG Tab.ER PO SCH ×2 (07:59→19:24)
[2017-07-13] MEDS: Acetaminophen 650 MG Tab.ER PO SCH ×2 (08:00→19:26)
[2017-07-13] MEDS: Multivitamin Tab PO SCH (08:01)
[2017-07-13] MEDS: LORazepam 0.5 MG Tab PO SCH (08:03)
[2017-07-13] MEDS: Losartan 50 MG Tab PO SCH (17:24)
[2017-07-13] MEDS: LORazepam 1 MG Tab PO SCH (19:22)
[2017-07-13] MEDS: guanFACINE 1 MG Tab PO SCH (19:23)
[2017-07-13] MEDS: Lactobacillus Rhamnosus GG (Probiotic) Cap PO SCH (19:23)
[2017-07-13] MEDS: Cholecalciferol (Vitamin D3) 1,000 Unit Tab PO SCH (19:27)
[2017-07-14] MEDS: hydrALAZINE 50 MG Tab PO SCH ×2 (05:40→14:01)
[2017-07-14] MEDS: amLODIPine 5 MG Tab PO SCH (05:44)
[2017-07-14] MEDS: Furosemide 40 MG Tab PO SCH (05:44)
[2017-07-14] MEDS: Levothyroxine 50 MCG Tab PO SCH (08:02)
[2017-07-14] MEDS: Clopidogrel 75 MG Tab PO SCH (08:02)
[2017-07-14] MEDS: predniSONE 5 MG Tab PO SCH (08:03)
[2017-07-14] MEDS: Omeprazole 20 MG Cap.CR PO SCH (08:03)
[2017-07-14] MEDS: Metoprolol Tartrate 25 MG Tab PO SCH (08:05)
[2017-07-14] MEDS: Isosorbide Mononitrate 60 MG Tab.ER PO SCH (08:05)
[2017-07-14] MEDS: Lutein/Minerals/Vitamin C/Vitamin E Acetate Cap PO SCH (08:08)
[2017-07-14] MEDS: Multivitamin Tab PO SCH (08:08)
[2017-07-14] MEDS: LORazepam 0.5 MG Tab PO SCH (08:09)
[2017-07-14] MEDS: Acetaminophen 650 MG Tab.ER PO SCH (08:10)
[2017-07-14 13:55] VITALS: BP 133/61
--- NOTE | 2017-07-14 16:25 | PCM.HP ---
H&P History of Present Illness - General Date of Service: 07/14/17 Admit Problem/Dx: Admission Diagnosis/Problem Admission Diagnosis/Problem Coronary artery disease Source of Information: Patient, [facility] Records History Limitations: Reports: No Limitations - History of Present Illness Onset of Symptoms: Reports: Today (wound left lower leg markedly worsened ) Symptom Onset Date: 07/14/17 Duration of Symptoms: Reports: Getting Worse Location: Reports: Lower Extremity, Left Left Lower leg Pain Score (Numeric/FACES): 0 - Related Data Allergies/Adverse Reactions: Allergies Allergy/AdvReac Type Severity Reaction Status Date / Time atorvastatin calcium Allergy Lightheaded Verified 09/30/16 23:34 [From Lipitor] ness benzalkonium chloride Allergy Redness Verified 09/30/16 23:34 [From Travatan] celecoxib [From Celebrex] Allergy Change Verified 09/30/16 23:34 Mental Status erythromycin base Allergy Hives Verified 09/30/16 23:34 [Erythromycin Base] iodine Allergy Other Verified 09/30/16 23:34 nifedipine Allergy Swelling Verified 09/30/16 23:34 Penicillins Allergy Swelling Verified 09/30/16 23:34 rofecoxib [From Vioxx] Allergy Change Verified 09/30/16 23:34 Mental Status rosuvastatin calcium Allergy Lightheaded Verified 09/30/16 23:34 [From Crestor] ness sulfamethoxazole Allergy Hives Verified 09/30/16 23:34 [From Sulfamethoprim] travoprost [From Travatan] Allergy Redness Verified 09/30/16 23:34 trimethoprim Allergy Hives Verified 09/30/16 23:34 [From Sulfamethoprim] valdecoxib [From Bextra] Allergy Change Verified 09/30/16 23:34 Mental Status soy Allergy Nausea and Uncoded 09/30/16 23:34 Vomiting Home Medications: Home Meds Levothyroxine Sodium [Unithroid] 50 mcg PO DAILY 07/15/16 [History] Multivitamin [Daily Rajat] 1 tab PO DAILY 07/15/16 [History] Nitroglycerin [Nitrostat] 0.4 mg SL Q5M PRN 07/15/16 [History] Warfarin [Coumadin] 2 mg PO SUWEFR@1800 07/15/16 [History] Cholecalciferol (Vitamin D3) [Vitamin D3] 2,000 unit PO BEDTIME 09/30/16 [ History] Acetaminophen [Tylenol Arthritis] 1,300 mg PO BID 12/05/16 [History] L.acidoph,Paracasei, B.lactis [Probiotic] 1 each PO BEDTIME 12/05/16 [History] Omeprazole Magnesium [Prilosec Otc] 20 mg PO DAILY 12/05/16 [History] Aspirin 81 mg PO DAILY 06/10/17 [History] Carvedilol 6.25 mg PO BID 06/10/17 [History] Clopidogrel [Plavix] 75 mg PO DAILY 06/10/17 [History] Cyclobenzaprine HCl 5 mg PO TID PRN 06/10/17 [History] Dextran 70/Hypromellose [Artificial Tears] 1 drop EYEBOTH Q6HR PRN 06/10/17 [ History] Isosorbide Dinitrate 10 mg PO BID 06/10/17 [History] LORazepam 1 mg PO BEDTIME 06/10/17 [History] LORazepam [Ativan] 0.5 mg PO DAILY 06/10/17 [History] Losartan [Cozaar] 100 mg PO DAILY 06/10/17 [History] Lutein Extract/Zeaxanthin Ext [Lutein 15 MG Softgel] 1 cap PO BID 06/10/17 [ History] Prednisone [IJP: Prednisone] 5 mg PO DAILY 06/10/17 [History] Sennosides/Docusate Sodium [Senna-S] 1 each PO DAILY 06/10/17 [History] Ubidecarenone [Coenzyme Q10] 100 mg PO BEDTIME 06/10/17 [History] Warfarin [Coumadin] 1 mg PO MOTUTHSA@1800 06/10/17 [History] hydrALAZINE [Apresoline] 50 mg PO TID 06/10/17 [History] oxyCODONE 5 mg PO Q6HR PRN 06/10/17 [History] Past Medical History HEENT History: Reports: Allergic Rhinitis, Cataract, Glaucoma, Hard of Hearing, Impaired Vision, Other (See Below) Other HEENT History: Patient wears trifocals, bilateral hearing aides Cardiovascular History: Reports: Afib, Arrhythmia, Blood Clots/VTE/DVT, CAD, Cardiomyopathy, Heart Failure, Heart Murmur, High Cholesterol, Hypertension, PVD , Other (See Below) Other Cardiovascular History: First degree A-V block, PVCs, PACs, distant brief atrial fibrillation, patient denies previous VA despite medical records, grade 2 diastolic dysfunction, moderate left ventricular hypertrophy and left atrial enlargement by echocardiogram, mild pulmonary valve insufficiency and mild to moderate tricuspid valve insufficiency with additional mild mitral valve insufficiency by echocardiogram, mild aortic valve sclerosis without stenosis, mild carotid occlusive, history of superficial thrombophlebitis and varicose veins, DVT of the proximal left femoral vein on 08/09/15 with right-sided PE on 05/08/16 and current warfarin therapy Respiratory History: Reports: COPD, Intubation, Previous, PE, Sleep Apnea, SOB, Other (See Below) Other Respiratory History: Patient does use CPAP for her moderate to severe obstructive sleep apnea with previous history of nocturnal hypoxemia, PE as above, benign pulmonary nodules with previous left apical benign granuloma by CT scan on 05/08/16, COPD by chest x-ray with no medical therapy Gastrointestinal History: Reports: Chronic Constipation, Diverticulosis, GERD, Hiatal Hernia, Other (See Below) Other Gastrointestinal History: Probable benign right hepatic mass at about 2.[address] scan on 08/11/16, Benign hepatic cysts by CT scan on 02/18/16, fatty liver secondary to hyperlipidemia Genitourinary History: Reports: Chronic Renal Insuffiency, Renal Disease, Urinary Incontinence, Other (See Below) Other Genitourinary History: kidney disease stage 3, bilateral benign renal cysts 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: Reports: Dysfunctional Uterine Bleeding, Fibroids, Other OB/BYN History: surgical menopause Musculoskeletal History: Reports: Arthritis, Back Pain, Chronic, Fibromyalgia, Gout, Neck Pain, Chronic, Osteoarthritis, Osteoporosis, RA Neurological History: Reports: CVA, Headaches, Chronic, Migraines, Other (See Below) Other Neuro History: 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, ambulates with a cane currently, history of distant migraine headaches nonproblematic at this time Psychiatric History: Reports: Addiction, Anxiety, Depression, Other (See Below) Other Psychiatric History: Chronic narcotic use secondary to her fibromyalgia and arthritis Endocrine/Metabolic History: Reports: Hypothyroidism, Osteoporosis, Other (See Below) Other Endocrine/Metabolic History: Hyponatremia secondary to CHF Hematologic History: Reports: Anemia, Blood Transfusion(s), Iron Deficiency, Other (See Below) Other Hematologic History: 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 with transfusion required Immunologic History: Reports: None Oncologic (Cancer) History: Reports: None Dermatologic History: Reports: Other (See Below) Other Dermatologic History: Actinic keratosis of the nose previously treated - Infectious Disease History Infectious Disease History: Reports: Chicken Pox, Measles, Mumps, Shingles - Past Surgical History Head Surgeries/Procedures: Reports: None HEENT Surgical History: Reports: Cataract Surgery, Oral Surgery, Other (See Below) Cardiovascular Surgical History: Reports: Varicose, Vascular Surgery, Other ( See Below) GI Surgical History: Reports: Appendectomy, Colonoscopy, Other (See Below) Female Surgical History: Reports: Breast Biopsy, Hysterectomy, Salpingo- Oophorectomy, Other (See Below) Musculoskeletal Surgical History: Reports: Arthroscopic Knee, Arthroscopic Procedure, Carpal Tunnel, Hip Replacement, Joint Replacement, Other (See Below) Oncologic Surgical History: Reports: Biopsy of Breast, Other (See Below) - Past Imaging History Past Imaging History: Reports: Angiography, Cardiac Echo, Carotid US, CAT Scan, Mammogram, MRI, Sleep Study, Stress Testing, Ultrasound, Venous Doppler Social & Family History - Family History HEENT: Reports: Allergic Rhinitis, Retinal Detachment, Other (See Below) Other HEENT Family History: Daughter with retinal detachment Cardiac: Reports: Bypass, CAD, Heart Murmur, Heart Valve Replacement, High Cholesterol, Hypertension, VA, PVD/COD, Other (See Below) Other Cardiac Family History: Son with mechanical valve replacement and CABG x1 at about age 62, son also - also suffers from hypertension and hyperlipidemia, son with agent orange exposure Respiratory: Reports: None GI: Reports: Celiac Disease, Other (See Below) Other GI Family History: Daughter with celiac disease : Reports: Renal Disease/Insufficiency, Other (See Below) Other Family History: Mother with end-stage renal disease OBGYN: Reports: None Musculoskeletal: Reports: None Neurological: Reports: Migraines, Seizure, Other (See Below) Other Neurological Family History: Granddaughter with seizures at age 19, 2 granddaughters with migraine headaches Psychiatric: Reports: Anxiety, Depression, Other (See Below) Other Psychiatric Family History: Son with anxiety depression disorder Endocrine/Metabolic: Reports: None Hematologic: Reports: None Immunologic: Reports: None Dermatologic: Reports: Psoriasis, Other (See Below) Other Dermatologic Family History: Daughter with psoriasis Oncologic: Reports: Bone, Esophageal, Metastatic, Other (See Below) Other Oncologic Family History: Sister with possible bone cancer fatal at age 18 , sister with fatal throat cancer in her 60s, sister with fatal vaginal cancer in her 60s, father with fatal throat cancer with pulmonary metastases at age 77 - Tobacco Use Smoking Status *Q: Never Smoker Second Hand Smoke Exposure: No - Caffeine Use Caffeine Use: Reports: Coffee (4 cups per day), Soda (2 sodas per month), Tea ( 2 cups per week). Denies: Energy Drinks - Alcohol Use Days Per Week of Alcohol Use: 0 (No previous DWIs, problems with alcohol abuse, etc.) Number of Drinks Per Day: 1 (Usually occasional beer or wine once per month) Total Drinks Per Week: 0 - Recreational Drug Use Recreational Drug Use: No Drug Use in Last 12 Months: No - Living Situation & Occupation Living situation: Reports: , Alone Occupation: Retired Exam - Vital Signs Vital Signs: Last Vital Signs Temp 97.5 F 07/14/17 12:00 Pulse 79 07/14/17 12:00 Resp 15 07/14/17 12:00 BP 133/61 07/14/17 14:01 Pulse Ox 96 07/14/17 12:00 Weight: 176 lb 3.2 oz - Patient Data Lab Results Last 24 hrs: Laboratory Results - last 24 hr 07/14/17 07/14/17 Range/Units 12:58 12:58 WBC 10.2 (4.0-10.2) K/uL RBC 3.55 L (3.77-5.09) M/uL Hgb 10.2 L (11.7-15.5) g/dL Hct 31.9 L (34.0-46.0) % MCV 89.9 (84.0-98.0) fL MCH 28.7 (28.2-33.3) pg MCHC 32.0 (31.7-36.0) g/dL RDW 14.6 H (11.2-14.1) % Plt Count 306 (150-350) K/uL Neut % (Auto) 86.0 H (45.0-80.0) % Lymph % (Auto) 8.8 L (10.0-50.0) % Hart % (Auto) 4.0 (2.0-14.0) % Eos % (Auto) 0.6 (0.0-5.0) % Baso % (Auto) 0.6 (0.0-2.0) % Neut # (Auto) 8.74 H (1.40-7.00) K/uL Lymph # (Auto) 0.89 (0.50-3.50) K/uL Hart # (Auto) 0.41 (0.00-1.00) K/uL Eos # (Auto) 0.06 (0.00-0.50) K/uL Baso # (Auto) 0.06 (0.00-0.20) K/uL C-Reactive Protein 1.1 H (<=0.9) mg/dL Result Diagrams: 07/14/17 12:58 07/13/17 07:25 *Q Meaningful Use (ADM) - VTE *Q VTE Criteria *Q: VTE Mechanical Contraindications *Q: Bilateral Lower Edema VTE Pharmacological Contraindications *Q: Risk of Bleeding - Stroke *Q Stroke Criteria *Q: - AMI *Q AMI Criteria *Q: - Problem List (1) Anemia SNOMED Code(s): 368612837 ICD Code: D64.9 - ANEMIA, UNSPECIFIED Status: Acute Priority: High Current Visit: Yes Problem Details: Hgb 7.2 Qualifiers: Anemia type: unspecified type Qualified Code(s): D64.9 - Anemia, unspecified Orders Last 24hrs: Active Orders 24 hr Category Date Time Status Transfer Patient (Change bed) [ADT] Routine ADT 07/14/17 16:05 Ordered Notify Provider Consults [RC] ASDIRECTED Care 07/14/17 13:38 Active Ready for Discharge [RC] PER UNIT ROUTINE Care 07/14/17 16:08 Ordered Consult to Physician [CONS] Routine Cons 07/14/17 13:34 Active CULTURE WOUND [RM] Routine Lab 07/14/17 15:25 Received Medication Orders Acetaminophen (Tylenol Arthritis Pain) 1,300 mg PO Q12HR NIKITA Last Admin: 07/14/17 08:10 Dose: 1,300 mg Admin: 07/13/17 19:26 Dose: 1,300 mg Admin: 07/13/17 08:00 Dose: 1,300 mg Admin: 07/12/17 19:53 Dose: 1,300 mg Admin: 07/12/17 07:48 Dose: 1,300 mg Admin: 07/11/17 19:46 Dose: 1,300 mg Admin: 07/11/17 07:51 Dose: 1,300 mg Admin: 07/10/17 19:50 Dose: 1,300 mg Admin: 07/10/17 08:12 Dose: 1,300 mg Admin: 07/09/17 19:21 Dose: 1,300 mg Admin: 07/09/17 07:53 Dose: 1,300 mg Admin: 07/08/17 19:16 Dose: 1,300 mg Admin: 07/08/17 07:46 Dose: 1,300 mg Admin: 07/07/17 19:13 Dose: 1,300 mg Admin: 07/07/17 07:47 Dose: 1,300 mg Admin: 07/06/17 19:49 Dose: 1,300 mg Admin: 07/06/17 07:49 Dose: 1,300 mg Admin: 07/05/17 19:17 Dose: 1,300 mg Admin: 07/05/17 07:46 Dose: 1,300 mg Admin: 07/04/17 19:18 Dose: 1,300 mg Admin: 07/04/17 07:48 Dose: 1,300 mg Admin: 07/03/17 19:49 Dose: 1,300 mg Admin: 07/03/17 07:34 Dose: 1,300 mg Admin: 07/02/17 19:13 Dose: 1,300 mg Admin: 07/02/17 07:42 Dose: 1,300 mg Admin: 07/01/17 19:20 Dose: 1,300 mg Admin: 07/01/17 07:38 Dose: 1,300 mg Admin: 06/30/17 19:34 Dose: 1,300 mg Admin: 06/30/17 08:02 Dose: 1,300 mg Admin: 06/29/17 19:21 Dose: 1,300 mg Admin: 06/29/17 07:40 Dose: 1,300 mg Admin: 06/28/17 19:15 Dose: 1,300 mg Admin: 06/28/17 07:57 Dose: 1,300 mg Admin: 06/27/17 19:17 Dose: 1,300 mg Admin: 06/27/17 07:49 Dose: 1,300 mg Admin: 06/26/17 19:36 Dose: 1,300 mg Admin: 06/26/17 07:53 Dose: 1,300 mg Admin: 06/25/17 19:44 Dose: 1,300 mg Admin: 06/25/17 07:54 Dose: 1,300 mg Admin: 06/24/17 20:54 Dose: 1,300 mg Admin: 06/24/17 07:40 Dose: 1,300 mg Admin: 06/23/17 19:35 Dose: 1,300 mg Admin: 06/23/17 07:55 Dose: 1,300 mg Admin: 06/22/17 19:55 Dose: 1,300 mg Admin: 06/22/17 08:33 Dose: 1,300 mg Admin: 06/21/17 19:21 Dose: 1,300 mg Admin: 06/21/17 08:02 Dose: 1,300 mg Admin: 06/20/17 19:28 Dose: 1,300 mg Admin: 06/20/17 08:12 Dose: 1,300 mg Admin: 06/19/17 20:03 Dose: 1,300 mg Admin: 06/19/17 08:28 Dose: 1,300 mg Admin: 06/18/17 19:31 Dose: 1,300 mg Admin: 06/18/17 07:58 Dose: 1,300 mg Admin: 06/17/17 19:36 Dose: 1,300 mg Admin: 06/17/17 07:48 Dose: 1,300 mg Admin: 06/16/17 19:22 Dose: 1,300 mg Admin: 06/16/17 07:37 Dose: 1,300 mg Admin: 06/15/17 19:12 Dose: 1,300 mg Admin: 06/15/17 08:06 Dose: 1,300 mg Admin: 06/14/17 19:43 Dose: 1,300 mg Admin: 06/14/17 07:58 Dose: 1,300 mg Admin: 06/13/17 19:51 Dose: 1,300 mg Admin: 06/13/17 08:00 Dose: 1,300 mg Admin: 06/12/17 19:41 Dose: 1,300 mg Admin: 06/12/17 07:59 Dose: 1,300 mg Admin: 06/11/17 19:29 Dose: 1,300 mg Acetaminophen (Tylenol) 650 mg PO Q4H PRN PRN Reason: Pain Last Admin: 07/08/17 11:40 Dose: 650 mg Admin: 06/25/17 04:19 Dose: 650 mg Amlodipine Besylate (Norvasc) 5 mg PO Q12HR@0600,1800 NIKITA Last Admin: 07/14/17 05:44 Dose: 5 mg Admin: 07/13/17 17:24 Dose: 5 mg Admin: 07/13/17 05:33 Dose: 5 mg Admin: 07/12/17 17:43 Dose: 5 mg Admin: 07/12/17 06:02 Dose: 5 mg Admin: 07/11/17 17:36 Dose: 5 mg Admin: 07/11/17 05:21 Dose: 5 mg Admin: 07/10/17 17:34 Dose: 5 mg Admin: 07/10/17 05:50 Dose: 5 mg Admin: 07/09/17 17:07 Dose: 5 mg Admin: 07/09/17 05:05 Dose: 5 mg Admin: 07/08/17 17:13 Dose: 5 mg Artificial Tears (Liquitears 1.4% Ophth Soln) 2 ml EYEBOTH Q1H PRN PRN Reason: Dry Eyes Last Admin: 06/14/17 08:59 Dose: 2 drop Admin: 06/13/17 19:59 Dose: 2 drop Cholecalciferol (Vitamin D3) 2,000 units PO BEDTIME NIKITA Last Admin: 07/13/17 19:27 Dose: 2,000 units Admin: 07/12/17 19:53 Dose: 2,000 units Admin: 07/11/17 19:47 Dose: 2,000 units Admin: 07/10/17 19:51 Dose: 2,000 units Admin: 07/09/17 19:22 Dose: 2,000 units Admin: 07/08/17 19:17 Dose: 2,000 units Admin: 07/07/17 19:14 Dose: 2,000 units Admin: 07/06/17 19:49 Dose: 2,000 units Admin: 07/05/17 19:18 Dose: 2,000 units Admin: 07/04/17 19:18 Dose: 2,000 units Admin: 07/03/17 19:49 Dose: 2,000 units Admin: 07/02/17 19:12 Dose: 2,000 units Admin: 07/01/17 19:20 Dose: 2,000 units Admin: 06/30/17 19:35 Dose: 2,000 units Admin: 06/29/17 19:27 Dose: 2,000 units Admin: 06/28/17 19:16 Dose: 2,000 units Admin: 06/27/17 19:16 Dose: 2,000 units Admin: 06/26/17 19:37 Dose: 2,000 units Admin: 06/25/17 19:44 Dose: 2,000 units Admin: 06/24/17 20:55 Dose: 2,000 units Admin: 06/23/17 19:35 Dose: 2,000 units Admin: 06/22/17 19:56 Dose: 2,000 units Admin: 06/21/17 19:23 Dose: 2,000 units Admin: 06/20/17 19:29 Dose: 2,000 units Admin: 06/19/17 20:06 Dose: 2,000 units Admin: 06/18/17 19:32 Dose: 2,000 units Admin: 06/17/17 19:38 Dose: 2,000 units Admin: 06/16/17 19:23 Dose: 2,000 units Admin: 06/15/17 19:13 Dose: 2,000 units Admin: 06/14/17 19:43 Dose: 2,000 units Admin: 06/13/17 19:52 Dose: 2,000 units Admin: 06/12/17 19:45 Dose: 2,000 units Admin: 06/11/17 19:30 Dose: 2,000 units Admin: 06/10/17 20:14 Dose: 2,000 units Clopidogrel Bisulfate (Plavix) 75 mg PO DAILY NIKITA Last Admin: 07/14/17 08:02 Dose: 75 mg Admin: 07/13/17 07:55 Dose: 75 mg Admin: 07/12/17 07:46 Dose: 75 mg Admin: 07/11/17 07:49 Dose: 75 mg Admin: 07/10/17 08:10 Dose: 75 mg Admin: 07/09/17 07:51 Dose: 75 mg Admin: 07/08/17 07:45 Dose: 75 mg Admin: 07/07/17 07:46 Dose: 75 mg Admin: 07/06/17 07:47 Dose: 75 mg Admin: 07/05/17 07:44 Dose: 75 mg Admin: 07/04/17 07:46 Dose: 75 mg Admin: 07/03/17 07:31 Dose: 75 mg Admin: 07/02/17 07:41 Dose: 75 mg Admin: 07/01/17 07:37 Dose: 75 mg Admin: 06/30/17 08:00 Dose: 75 mg Admin: 06/29/17 07:38 Dose: 75 mg Admin: 06/28/17 07:56 Dose: 75 mg Admin: 06/27/17 07:47 Dose: 75 mg Admin: 06/26/17 07:51 Dose: 75 mg Admin: 06/25/17 07:52 Dose: 75 mg Admin: 06/24/17 07:38 Dose: 75 mg Admin: 06/23/17 07:53 Dose: 75 mg Admin: 06/22/17 08:31 Dose: 75 mg Admin: 06/21/17 08:00 Dose: 75 mg Admin: 06/20/17 08:07 Dose: 75 mg Admin: 06/19/17 08:26 Dose: 75 mg Admin: 06/18/17 08:13 Dose: 75 mg Admin: 06/17/17 07:47 Dose: 75 mg Admin: 06/16/17 07:35 Dose: 75 mg Admin: 06/15/17 08:03 Dose: 75 mg Admin: 06/14/17 07:55 Dose: 75 mg Admin: 06/13/17 07:58 Dose: 75 mg Admin: 06/12/17 07:57 Dose: 75 mg Admin: 06/11/17 08:33 Dose: 75 mg Coenzyme Q10 (Coenzyme Q10) 100 mg PO BEDTIME NIKITA Last Admin: 07/13/17 19:23 Dose: 100 mg Admin: 07/12/17 19:50 Dose: 100 mg Admin: 07/11/17 19:44 Dose: 100 mg Admin: 07/10/17 19:46 Dose: 100 mg Admin: 07/09/17 19:17 Dose: 100 mg Admin: 07/08/17 19:12 Dose: 100 mg Admin: 07/07/17 19:09 Dose: 100 mg Admin: 07/06/17 19:45 Dose: 100 mg Admin: 07/05/17 19:13 Dose: 100 mg Admin: 07/04/17 19:13 Dose: 100 mg Admin: 07/03/17 19:42 Dose: 100 mg Admin: 07/02/17 19:08 Dose: 100 mg Admin: 07/01/17 19:15 Dose: 100 mg Admin: 06/30/17 19:30 Dose: 100 mg Admin: 06/29/17 19:22 Dose: 100 mg Admin: 06/28/17 19:12 Dose: 100 mg Admin: 06/27/17 19:09 Dose: 100 mg Admin: 06/26/17 19:31 Dose: 100 mg Admin: 06/25/17 19:40 Dose: 100 mg Admin: 06/24/17 20:44 Dose: 100 mg Admin: 06/23/17 19:32 Dose: 100 mg Admin: 06/22/17 19:45 Dose: 100 mg Admin: 06/21/17 19:16 Dose: 100 mg Admin: 06/20/17 19:25 Dose: 100 mg Admin: 06/19/17 20:01 Dose: 100 mg Admin: 06/18/17 19:28 Dose: 100 mg Admin: 06/17/17 19:36 Dose: 100 mg Admin: 06/16/17 19:19 Dose: 100 mg Admin: 06/15/17 19:10 Dose: 100 mg Admin: 06/14/17 19:38 Dose: 100 mg Admin: 06/13/17 19:45 Dose: 100 mg Admin: 06/12/17 19:38 Dose: 100 mg Admin: 06/11/17 19:29 Dose: 100 mg Admin: 06/10/17 20:12 Dose: 100 mg Cyclobenzaprine HCl (Flexeril) 5 mg PO TID PRN PRN Reason: muscle spasms Last Admin: 06/25/17 21:02 Dose: 5 mg Admin: 06/25/17 04:18 Dose: 5 mg Admin: 06/24/17 21:37 Dose: 5 mg Admin: 06/21/17 21:59 Dose: 5 mg Admin: 06/19/17 13:48 Dose: 5 mg Furosemide (Lasix) 40 mg PO DAILY@0600 NIKITA Last Admin: 07/14/17 05:44 Dose: 40 mg Admin: 07/13/17 05:32 Dose: 40 mg Admin: 07/12/17 06:01 Dose: 40 mg Admin: 07/11/17 05:21 Dose: 40 mg Admin: 07/10/17 05:49 Dose: 40 mg Admin: 07/09/17 05:06 Dose: 40 mg Guanfacine HCl (Guanfacine) 1 mg PO BEDTIME [facility] Last Admin: 07/13/17 19:23 Dose: 1 mg Admin: 07/12/17 19:51 Dose: 1 mg Admin: 07/11/17 19:44 Dose: 1 mg Admin: 07/10/17 19:47 Dose: 1 mg Admin: 07/09/17 19:18 Dose: 1 mg Admin: 07/08/17 19:13 Dose: 1 mg Admin: 07/07/17 19:10 Dose: 1 mg Admin: 07/06/17 19:46 Dose: 1 mg Admin: 07/05/17 19:14 Dose: 1 mg Admin: 07/04/17 19:14 Dose: 1 mg Admin: 07/03/17 19:43 Dose: 1 mg Admin: 07/02/17 19:11 Dose: 1 mg Admin: 07/01/17 19:17 Dose: 1 mg Admin: 06/30/17 19:32 Dose: 1 mg Admin: 06/29/17 19:25 Dose: 1 mg Admin: 06/28/17 19:14 Dose: 1 mg Admin: 06/27/17 19:14 Dose: 1 mg Admin: 06/26/17 19:34 Dose: 1 mg Hydralazine HCl (Apresoline) 100 mg PO TID@0600,1400,2000 [facility] Last Admin: 07/14/17 14:01 Dose: 100 mg Admin: 07/14/17 05:40 Dose: 100 mg Admin: 07/13/17 19:20 Dose: 100 mg Admin: 07/13/17 13:24 Dose: 100 mg Admin: 07/13/17 05:32 Dose: 100 mg Admin: 07/12/17 19:48 Dose: 100 mg Admin: 07/12/17 14:41 Dose: 100 mg Admin: 07/12/17 06:01 Dose: 100 mg Admin: 07/11/17 19:42 Dose: 100 mg Admin: 07/11/17 14:27 Dose: 100 mg Admin: 07/11/17 05:21 Dose: 100 mg Admin: 07/10/17 19:42 Dose: 100 mg Admin: 07/10/17 14:32 Dose: 100 mg Admin: 07/10/17 05:49 Dose: 100 mg Admin: 07/09/17 19:15 Dose: 100 mg Admin: 07/09/17 13:08 Dose: 100 mg Admin: 07/09/17 05:04 Dose: 100 mg Admin: 07/08/17 19:09 Dose: 100 mg Admin: 07/08/17 13:33 Dose: 100 mg Isosorbide Mononitrate (Imdur) 60 mg PO Q12HR NIKITA Last Admin: 07/14/17 08:05 Dose: 60 mg Admin: 07/13/17 19:24 Dose: 60 mg Admin: 07/13/17 07:59 Dose: 60 mg Admin: 07/12/17 19:52 Dose: Admin: 07/12/17 07:42 Dose: 60 mg Admin: 07/11/17 19:45 Dose: 60 mg Admin: 07/11/17 07:45 Dose: 60 mg Admin: 07/10/17 19:48 Dose: 60 mg Admin: 07/10/17 08:15 Dose: 60 mg Admin: 07/09/17 19:18 Dose: 60 mg Admin: 07/09/17 07:47 Dose: 60 mg Admin: 07/08/17 19:15 Dose: 60 mg Admin: 07/08/17 07:41 Dose: 60 mg Admin: 07/07/17 19:11 Dose: 60 mg Admin: 07/07/17 07:42 Dose: 60 mg Admin: 07/06/17 19:47 Dose: 60 mg Admin: 07/06/17 07:44 Dose: 60 mg Admin: 07/05/17 19:14 Dose: 60 mg Admin: 07/05/17 07:41 Dose: 60 mg Admin: 07/04/17 19:15 Dose: 60 mg Admin: 07/04/17 07:43 Dose: 60 mg Admin: 07/03/17 19:44 Dose: 60 mg Admin: 07/03/17 07:29 Dose: 60 mg Admin: 07/02/17 19:12 Dose: 60 mg Admin: 07/02/17 07:39 Dose: 60 mg Admin: 07/01/17 19:17 Dose: 60 mg Admin: 07/01/17 07:35 Dose: 60 mg Admin: 06/30/17 19:33 Dose: 60 mg Admin: 06/30/17 07:57 Dose: 60 mg Admin: 06/29/17 19:25 Dose: 60 mg Admin: 06/29/17 07:36 Dose: 60 mg Admin: 06/28/17 19:15 Dose: 60 mg Admin: 06/28/17 07:55 Dose: 60 mg Admin: 06/27/17 19:15 Dose: 60 mg Admin: 06/27/17 07:46 Dose: 60 mg Admin: 06/26/17 19:35 Dose: 60 mg Admin: 06/26/17 07:50 Dose: 60 mg Admin: 06/25/17 19:43 Dose: 60 mg Admin: 06/25/17 07:50 Dose: 60 mg Admin: 06/24/17 20:53 Dose: 60 mg Admin: 06/24/17 07:36 Dose: 60 mg Admin: 06/23/17 19:34 Dose: 60 mg Admin: 06/23/17 08:05 Dose: 60 mg Admin: 06/22/17 19:48 Dose: 60 mg Admin: 06/22/17 08:29 Dose: 60 mg Admin: 06/21/17 19:20 Dose: 60 mg Admin: 06/21/17 07:59 Dose: 60 mg Admin: 06/20/17 19:27 Dose: 60 mg Admin: 06/20/17 08:10 Dose: 60 mg Admin: 06/19/17 20:03 Dose: 60 mg Lactobacillus Rhamnosus (Culturelle) 1 cap PO BEDTIME NIKITA Last Admin: 07/13/17 19:23 Dose: 1 cap Admin: 07/12/17 19:50 Dose: 1 cap Admin: 07/11/17 19:44 Dose: 1 cap Admin: 07/10/17 19:46 Dose: 1 cap Admin: 07/09/17 19:17 Dose: 1 cap Admin: 07/08/17 19:12 Dose: 1 cap Admin: 07/07/17 19:09 Dose: 1 cap Admin: 07/06/17 19:46 Dose: 1 cap Admin: 07/05/17 19:13 Dose: 1 cap Admin: 07/04/17 19:14 Dose: 1 cap Admin: 07/03/17 19:43 Dose: 1 cap Admin: 07/02/17 19:11 Dose: 1 cap Admin: 07/01/17 19:21 Dose: 1 cap Admin: 06/30/17 19:32 Dose: 1 cap Admin: 06/29/17 19:26 Dose: 1 cap Admin: 06/28/17 19:13 Dose: 1 cap Admin: 06/27/17 19:13 Dose: 1 cap Admin: 06/26/17 19:34 Dose: 1 cap Admin: 06/25/17 19:40 Dose: 1 cap Admin: 06/24/17 20:47 Dose: 1 cap Admin: 06/23/17 19:32 Dose: 1 cap Admin: 06/22/17 19:47 Dose: 1 cap Admin: 06/21/17 19:19 Dose: 1 cap Admin: 06/20/17 19:24 Dose: 1 cap Admin: 06/19/17 20:02 Dose: 1 cap Admin: 06/18/17 19:30 Dose: 1 cap Admin: 06/17/17 19:35 Dose: 1 cap Admin: 06/16/17 19:20 Dose: 1 cap Admin: 06/15/17 19:13 Dose: 1 cap Admin: 06/14/17 19:42 Dose: 1 cap Admin: 06/13/17 19:50 Dose: 1 cap Admin: 06/12/17 19:40 Dose: 1 cap Admin: 06/11/17 19:29 Dose: 1 cap Admin: 06/10/17 20:12 Dose: 1 cap Levothyroxine Sodium (Synthroid) 50 mcg PO DAILY NIKITA Last Admin: 07/14/17 08:02 Dose: 50 mcg Admin: 07/13/17 07:58 Dose: 50 mcg Admin: 07/12/17 07:47 Dose: 50 mcg Admin: 07/11/17 07:50 Dose: 50 mcg Admin: 07/10/17 08:11 Dose: 50 mcg Admin: 07/09/17 07:52 Dose: 50 mcg Admin: 07/08/17 07:46 Dose: 50 mcg Admin: 07/07/17 07:47 Dose: 50 mcg Admin: 07/06/17 07:48 Dose: 50 mcg Admin: 07/05/17 07:45 Dose: 50 mcg Admin: 07/04/17 07:47 Dose: 50 mcg Admin: 07/03/17 07:33 Dose: 50 mcg Admin: 07/02/17 07:42 Dose: 50 mcg Admin: 07/01/17 07:37 Dose: 50 mcg Admin: 06/30/17 08:01 Dose: 50 mcg Admin: 06/29/17 07:39 Dose: 50 mcg Admin: 06/28/17

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
--- NOTE | 2017-07-14 16:42 | PCM.DCSUM1 ---
Discharge Summary - Hospital Course Brief History: Patient has been in [facility] for PT-OT. Today the wound on the left lower leg markedly worsened, and cellulitis has been diagnosed. - Discharge Data Discharge Date: 07/14/17 Discharge Disposition: DC/Tfer to Acute Hospital 02 Condition: Fair - Discharge Diagnosis/Problem(s) (1) Anemia SNOMED Code(s): 995814271 ICD Code: D64.9 - ANEMIA, UNSPECIFIED Status: Acute Priority: High Current Visit: Yes Problem Details: Hgb 7.2 Qualifiers: Anemia type: unspecified type Qualified Code(s): D64.9 - Anemia, unspecified - Patient Summary/Data Consults: Consultations 06/10/17 17:14 Consult to Case Management [CONS] Routine OT Evaluation and Treatment [CONS] Routine PT Evaluation and Treatment [CONS] Routine 07/14/17 13:34 Consult to Physician [CONS] Routine - Discharge Plan Home Medications: Home Meds Levothyroxine Sodium [Unithroid] 50 mcg PO DAILY 07/15/16 [History] Multivitamin [Daily Rajat] 1 tab PO DAILY 07/15/16 [History] Nitroglycerin [Nitrostat] 0.4 mg SL Q5M PRN 07/15/16 [History] Warfarin [Coumadin] 2 mg PO SUWEFR@1800 07/15/16 [History] Cholecalciferol (Vitamin D3) [Vitamin D3] 2,000 unit PO BEDTIME 09/30/16 [ History] Acetaminophen [Tylenol Arthritis] 1,300 mg PO BID 12/05/16 [History] L.acidoph,Paracasei, B.lactis [Probiotic] 1 each PO BEDTIME 12/05/16 [History] Omeprazole Magnesium [Prilosec Otc] 20 mg PO DAILY 12/05/16 [History] Aspirin 81 mg PO DAILY 06/10/17 [History] Carvedilol 6.25 mg PO BID 06/10/17 [History] Clopidogrel [Plavix] 75 mg PO DAILY 06/10/17 [History] Cyclobenzaprine HCl 5 mg PO TID PRN 06/10/17 [History] Dextran 70/Hypromellose [Artificial Tears] 1 drop EYEBOTH Q6HR PRN 06/10/17 [ History] Isosorbide Dinitrate 10 mg PO BID 06/10/17 [History] LORazepam 1 mg PO BEDTIME 06/10/17 [History] LORazepam [Ativan] 0.5 mg PO DAILY 06/10/17 [History] Losartan [Cozaar] 100 mg PO DAILY 06/10/17 [History] Lutein Extract/Zeaxanthin Ext [Lutein 15 MG Softgel] 1 cap PO BID 06/10/17 [ History] Prednisone [IJP: Prednisone] 5 mg PO DAILY 06/10/17 [History] Sennosides/Docusate Sodium [Senna-S] 1 each PO DAILY 06/10/17 [History] Ubidecarenone [Coenzyme Q10] 100 mg PO BEDTIME 06/10/17 [History] Warfarin [Coumadin] 1 mg PO MOTUTHSA@1800 06/10/17 [History] hydrALAZINE [Apresoline] 50 mg PO TID 06/10/17 [History] oxyCODONE 5 mg PO Q6HR PRN 06/10/17 [History] - Discharge Summary/Plan Comment DC Time >30 min.: Yes Discharge Summary/Plan Comment: Transferred to IP status for IV antibiotics for LLE cellulitis. - Patient Data Vitals - Most Recent: Last Vital Signs Temp 97.5 F 07/14/17 12:00 Pulse 79 07/14/17 12:00 Resp 15 07/14/17 12:00 BP 133/61 07/14/17 14:01 Pulse Ox 96 07/14/17 12:00 Weight - Most Recent: 176 lb 3.2 oz I&O - Last 24 hours: Intake & Output 07/14/17 07/14/17 07/14/17 06:59 14:59 22:59 Intake Total 690 Balance 690 Lab Results - Last 24 hrs: Laboratory Results - last 24 hr 07/14/17 07/14/17 Range/Units 12:58 12:58 WBC 10.2 (4.0-10.2) K/uL RBC 3.55 L (3.77-5.09) M/uL Hgb 10.2 L (11.7-15.5) g/dL Hct 31.9 L (34.0-46.0) % MCV 89.9 (84.0-98.0) fL MCH 28.7 (28.2-33.3) pg MCHC 32.0 (31.7-36.0) g/dL RDW 14.6 H (11.2-14.1) % Plt Count 306 (150-350) K/uL Neut % (Auto) 86.0 H (45.0-80.0) % Lymph % (Auto) 8.8 L (10.0-50.0) % [place] % (Auto) 4.0 (2.0-14.0) % Eos % (Auto) 0.6 (0.0-5.0) % Baso % (Auto) 0.6 (0.0-2.0) % Neut # (Auto) 8.74 H (1.40-7.00) K/uL Lymph # (Auto) 0.89 (0.50-3.50) K/uL [place] # (Auto) 0.41 (0.00-1.00) K/uL Eos # (Auto) 0.06 (0.00-0.50) K/uL Baso # (Auto) 0.06 (0.00-0.20) K/uL C-Reactive Protein 1.1 H (<=0.9) mg/dL Med Orders - Current: Current Medications Acetaminophen (Tylenol Arthritis Pain) 1,300 mg PO Q12HR [facility] Last Admin: 07/14/17 08:10 Dose: 1,300 mg Acetaminophen (Tylenol) 650 mg PO Q4H PRN PRN Reason: Pain Last Admin: 07/08/17 11:40 Dose: 650 mg Amlodipine Besylate (Norvasc) 5 mg PO Q12HR@0600,1800 [facility] Last Admin: 07/14/17 05:44 Dose: 5 mg Artificial Tears (Liquitears 1.4% Ophth Soln) 2 ml EYEBOTH Q1H PRN PRN Reason: Dry Eyes Last Admin: 06/14/17 08:59 Dose: 2 drop Cholecalciferol (Vitamin D3) 2,000 units PO BEDTIME [facility] Last Admin: 07/13/17 19:27 Dose: 2,000 units Clopidogrel Bisulfate (Plavix) 75 mg PO DAILY [facility] Last Admin: 07/14/17 08:02 Dose: 75 mg Coenzyme Q10 (Coenzyme Q10) 100 mg PO BEDTIME [facility] Last Admin: 07/13/17 19:23 Dose: 100 mg Cyclobenzaprine HCl (Flexeril) 5 mg PO TID PRN PRN Reason: muscle spasms Last Admin: 06/25/17 21:02 Dose: 5 mg Furosemide (Lasix) 40 mg PO DAILY@0600 [facility] Last Admin: 07/14/17 05:44 Dose: 40 mg Guanfacine HCl (Guanfacine) 1 mg PO BEDTIME [facility] Last Admin: 07/13/17 19:23 Dose: 1 mg Hydralazine HCl (Apresoline) 100 mg PO TID@0600,1400,2000 [facility] Last Admin: 07/14/17 14:01 Dose: 100 mg Isosorbide Mononitrate (Imdur) 60 mg PO Q12HR [facility] Last Admin: 07/14/17 08:05 Dose: 60 mg Lactobacillus Rhamnosus (Culturelle) 1 cap PO BEDTIME [facility] Last Admin: 07/13/17 19:23 Dose: 1 cap Levothyroxine Sodium (Synthroid) 50 mcg PO DAILY [facility] Last Admin: 07/14/17 08:02 Dose: 50 mcg Lorazepam (Ativan) 0.5 mg PO DAILY [facility] Last Admin: 07/14/17 08:09 Dose: 0.5 mg Lorazepam (Ativan) 1 mg PO BEDTIME [facility] Last Admin: 07/13/17 19:22 Dose: 1 mg Lorazepam (Ativan) 0.5 mg PO Q8H PRN PRN Reason: Anxiety Last Admin: 07/09/17 10:45 Dose: 0.5 mg Losartan Potassium (Cozaar) 100 mg PO DAILY@1800 [facility] Last Admin: 07/13/17 17:24 Dose: 100 mg Metoprolol Tartrate (Lopressor) 12.5 mg PO Q12HR [facility] Last Admin: 07/14/17 08:05 Dose: 12.5 mg Multivitamins/Minerals/Vitamin C (Tab-A-Rajat) 1 tab PO DAILY [facility] Last Admin: 07/14/17 08:08 Dose: 1 tab Nitroglycerin (Nitrostat) 0.4 mg SL Q5M PRN PRN Reason: Chest Pain Last Admin: 06/22/17 13:24 Dose: 0.4 mg Omeprazole (Omeprazole) 20 mg PO DAILY [facility] Last Admin: 07/14/17 08:03 Dose: 20 mg Oxycodone HCl (Oxycodone) 5 mg PO Q6HR PRN PRN Reason: pain Last Admin: 07/10/17 08:01 Dose: 5 mg Prednisone (Prednisone) 5 mg PO DAILY [facility] Last Admin: 07/14/17 08:03 Dose: 5 mg Senna/Docusate Sodium (Senna Plus) 1 tab PO DAILY [facility] Last Admin: 07/14/17 08:08 Dose: 1 tab Senna/Docusate Sodium (Senna Plus) 1 tab PO Q48H [facility] Last Admin: 07/12/17 17:45 Dose: 1 tab Vit C/Vit E/Zinc/Copper/Lutein (Ocuvite Lutein) 1 each PO BID [facility] Last Admin: 07/14/17 08:08 Dose: 1 each Discontinued Medications Acetaminophen (Tylenol Arthritis Pain) 1,300 mg PO BID [facility] Last Admin: 06/11/17 09:10 Dose: 1,300 mg Amlodipine Besylate (Norvasc) 5 mg PO Q12HR [facility] Last Admin: 06/18/17 08:11 Dose: 5 mg Amlodipine Besylate (Norvasc) 5 mg PO DAILY [facility] Last Admin: 06/19/17 08:24 Dose: 5 mg Amlodipine Besylate (Norvasc) 5 mg PO BEDTIME [facility] Last Admin: 06/22/17 19:48 Dose: 5 mg Amlodipine Besylate (Norvasc) 5 mg PO DAILY [facility] Last Admin: 06/26/17 07:50 Dose: 5 mg Amlodipine Besylate (Norvasc) 5 mg PO BEDTIME [facility] Last Admin: 07/05/17 19:17 Dose: 5 mg Amlodipine Besylate (Norvasc) 5 mg PO Q12HR [facility] Last Admin: 07/08/17 07:43 Dose: 5 mg Artificial Tears (Liquitears 1.4% Ophth Soln) 1 ml EYEBOTH Q6HR PRN PRN Reason: Dry Eyes Aspirin (Aspirin) 81 mg PO DAILY [facility] Last Admin: 06/12/17 07:55 Dose: 81 mg Carvedilol (Coreg) 6.25 mg PO BID [facility] Last Admin: 06/11/17 08:28 Dose: 6.25 mg Carvedilol (Coreg) 6.25 mg PO Q12HR [facility] Last Admin: 06/24/17 07:36 Dose: 6.25 mg Carvedilol (Coreg) 12.5 mg PO Q12HR [facility] Last Admin: 07/02/17 07:38 Dose: 12.5 mg Carvedilol (Coreg) 25 mg PO Q12HR [facility] Last Admin: 07/03/17 07:40 Dose: 25 mg Doxazosin Mesylate (Cardura) 4 mg PO Q12HR [facility] Last Admin: 06/17/17 07:44 Dose: 4 mg Furosemide (Lasix) 20 mg PO DAILY [facility] Furosemide (Lasix) 40 mg PO DAILY [facility] Last Admin: 07/08/17 07:42 Dose: 40 mg Furosemide (Lasix) 20 mg PO ONETIME ONE Stop: 06/13/17 10:58 Last Admin: 06/13/17 11:10 Dose: 20 mg Furosemide (Lasix) 20 mg PO ONETIME ONE Stop: 06/14/17 16:40 Last Admin: 06/14/17 16:50 Dose: 20 mg Guanfacine HCl (Guanfacine) 1 mg PO BEDTIME [facility] Last Admin: 06/23/17 19:39 Dose: 1 mg Guanfacine HCl (Guanfacine) 2 mg PO BEDTIME [facility] Last Admin: 06/25/17 19:42 Dose: 2 mg Hydralazine HCl (Apresoline) 50 mg PO TID [facility] Last Admin: 06/11/17 11:49 Dose: 50 mg Hydralazine HCl (Apresoline) 50 mg PO TID [facility] Last Admin: 07/06/17 11:51 Dose: 50 mg Hydralazine HCl (Apresoline) 100 mg PO TID@0800,1400,2000 [facility] Last Admin: 07/08/17 07:40 Dose: 100 mg Hydroxyzine HCl (Vistaril) 25 mg IM ONETIME ONE Stop: 07/10/17 10:01 Last Admin: 07/10/17 09:46 Dose: 25 mg Sodium Chloride (Normal Saline) 250 mls @ 50 mls/hr IV ASDIRECTED [facility] Last Admin: 06/12/17 12:09 Dose: 50 mls/hr Sodium Chloride (Normal Saline) 250 mls @ 120 mls/hr IV ASDIRECTED [facility] Stop: 06/14/17 12:04 Last Admin: 06/14/17 10:30 Dose: 120 mls/hr Isosorbide Dinitrate (Isordil) 10 mg PO Q12HR [facility] Last Admin: 06/11/17 08:31 Dose: 10 mg Isosorbide Mononitrate (Imdur) 60 mg PO BEDTIME [facility] Last Admin: 06/18/17 19:30 Dose: 60 mg Labetalol HCl (Normodyne) 20 mg IVPUSH ONETIME ONE PRN Reason: Protocol Stop: 06/14/17 19:38 Last Admin: 06/14/17 19:51 Dose: 20 mg Lorazepam (Ativan) 0.5 mg IVPUSH ONETIME ONE Stop: 06/14/17 20:27 Last Admin: 06/14/17 21:32 Dose: Not Given Losartan Potassium (Cozaar) 100 mg PO DAILY [facility] Last Admin: 06/26/17 07:49 Dose: 100 mg Losartan Potassium (Cozaar) 100 mg PO BEDTIME [facility] Losartan Potassium (Cozaar) 100 mg PO DAILY [facility] Last Admin: 07/03/17 07:29 Dose: 100 mg Nifedipine (Procardia) 10 mg PO ONETIME ONE Stop: 06/15/17 20:09 Last Admin: 06/15/17 20:35 Dose: 10 mg Nifedipine (Procardia) 10 mg PO ONETIME ONE Stop: 06/19/17 10:46 Last Admin: 06/19/17 11:25 Dose: 10 mg Nifedipine (Procardia) 10 mg PO ONETIME ONE Stop: 06/24/17 17:01 Last Admin: 06/24/17 17:46 Dose: 10 mg Senna/Docusate Sodium (Senna Plus) 1 tab PO DAILY [facility] Last Admin: 06/11/17 08:35 Dose: 1 tab Senna/Docusate Sodium (Senna Plus) 1 tab PO BID [facility] Last Admin: 06/22/17 08:32 Dose: 1 tab Sodium Chloride (Saline Flush) 10 ml FLUSH ASDIRECTED PRN PRN Reason: Keep Vein Open Sodium Chloride (Saline Flush) 10 ml FLUSH Q12HR [facility] Last Admin: 06/15/17 08:05 Dose: 10 ml Sodium Chloride (Saline Flush) 10 ml FLUSH 08,20 PRN PRN Reason: Keep Vein Open *Q Meaningful Use (DIS) - VTE *Q VTE Criteria *Q: VTE Mechanical Contraindications *Q: Bilateral Lower Edema VTE Pharmacological Contraindications *Q: Risk of Bleeding - Stroke *Q Stroke Criteria *Q: - AMI *Q AMI Criteria *Q:
[2017-07-14] MEDS ORDERED: Sodium Chloride 0.9% 10 ML Syringe FLUSH PRN (16:49)
== END 2017-07-14 17:17 | DRG 947 ==
LOC: LL.SWG 15:36
PROVIDERS: ADMIT Family Medicine; ATTEND Family Medicine
PROC: 30233N1 Transfusion of Nonautologous Red Blood Cells into Peripheral Vein, Percutaneous Approach (ICD-10-PCS; principal; 2017-06-12)
PROC: 30233N1 Transfusion of Nonautologous Red Blood Cells into Peripheral Vein, Percutaneous Approach (ICD-10-PCS; 2017-06-14)
PROC: 0HBLXZZ Excision of Left Lower Leg Skin, External Approach (ICD-10-PCS; 2017-06-25)
DX: R53.1 Weakness (principal); I21.4 Non-ST elevation (NSTEMI) myocardial infarction; E87.1 Hypo-osmolality and hyponatremia; I13.0 Hypertensive heart and chronic kidney disease with heart failure and stage 1 through stage 4 chronic kidney disease, or unspecified chronic kidney disease; J44.9 Chronic obstructive pulmonary disease, unspecified; R42 Dizziness and giddiness; E03.9 Hypothyroidism, unspecified; D50.9 Iron deficiency anemia, unspecified; M19.90 Unspecified osteoarthritis, unspecified site; K21.9 Gastro-esophageal reflux disease without esophagitis; F41.9 Anxiety disorder, unspecified; N28.9 Disorder of kidney and ureter, unspecified; I48.0 Paroxysmal atrial fibrillation; Z95.5 Presence of coronary angioplasty implant and graft; Z51.5 Encounter for palliative care; Z88.0 Allergy status to penicillin; Z88.8 Allergy status to other drugs, medicaments and biological substances; Z79.01 Long term (current) use of anticoagulants; Z79.82 Long term (current) use of aspirin; Z79.899 Other long term (current) drug therapy; H40.9 Unspecified glaucoma; H91.90 Unspecified hearing loss, unspecified ear; Z86.718 Personal history of other venous thrombosis and embolism; I25.10 Atherosclerotic heart disease of native coronary artery without angina pectoris; N18.9 Chronic kidney disease, unspecified; I50.9 Heart failure, unspecified; E78.00 Pure hypercholesterolemia, unspecified; I73.9 Peripheral vascular disease, unspecified; Z86.711 Personal history of pulmonary embolism; G47.33 Obstructive sleep apnea (adult) (pediatric); K44.9 Diaphragmatic hernia without obstruction or gangrene; K59.09 Other constipation; R32 Unspecified urinary incontinence; G89.29 Other chronic pain; Z86.73 Personal history of transient ischemic attack (TIA), and cerebral infarction without residual deficits; Z96.649 Presence of unspecified artificial hip joint; S81.802S Unspecified open wound, left lower leg, sequela; W22.8XXS Striking against or struck by other objects, sequela
CPT/HCPCS: 36415; 36430; 80048; 80053; 82272; 85014; 85018; 85025; 85027; 85610; 85651; 85730; 86140; 86850; 86900; 86901; 86920; 86922; 87070; 87077; 87186; 97110-GO; 97110-GP; 97112-GP; 97116-GP; 97162-GP; 97165-GO; 97530-GO; 97530-GP; 97605; A9270-GY; J3410; J7050; P9016

== ENCOUNTER 2017-07-14 16:04 | Inpatient (IN) | payer MEDICARE, OTHER ==
[2017-07-14] MEDS ORDERED: Polyvinyl Alcohol 1.4% Ophth Soln 15 ML Bottle EYEBOTH PRN (17:45)
[2017-07-14] MEDS ORDERED: Nitroglycerin 0.4 MG Tab.SL SL PRN (18:07)
[2017-07-14] MEDS ORDERED: oxyCODONE 5 MG Tab PO PRN (18:09)
[2017-07-14] MEDS: Cholecalciferol (Vitamin D3) 1,000 Unit Tab PO SCH (20:39)
[2017-07-14] MEDS: Losartan 50 MG Tab PO SCH (20:40)
[2017-07-14] MEDS: Lutein/Minerals/Vitamin C/Vitamin E Acetate Cap PO SCH (20:40)
[2017-07-14] MEDS: Acetaminophen 650 MG Tab.ER PO SCH (20:40)
[2017-07-14] MEDS: guanFACINE 1 MG Tab PO SCH (20:40)
[2017-07-14] MEDS: Lactobacillus Rhamnosus GG (Probiotic) Cap PO SCH (20:41)
[2017-07-14] MEDS: amLODIPine 5 MG Tab PO SCH (20:41)
[2017-07-14] MEDS: Isosorbide Mononitrate 60 MG Tab.ER PO SCH (20:41)
[2017-07-14] MEDS: Metoprolol Tartrate 25 MG Tab PO SCH (20:41)
[2017-07-14] MEDS: LORazepam 1 MG Tab PO SCH (20:42)
[2017-07-14] MEDS: hydrALAZINE 50 MG Tab PO SCH (20:42)
[2017-07-14] MEDS: Cyclobenzaprine 10 MG Tab PO PRN (20:43)
[2017-07-14] MEDS: Linezolid 600 MG in Premix Bag 1 BAG IV SCH (20:44)
[2017-07-14] MEDS: cefTAZidime 1 GM Vial IVPUSH SCH (23:03)
[2017-07-14] MEDS: Sodium Chloride 0.9% 10 ML Syringe FLUSH PRN (23:03)
[2017-07-15] MEDS: Acetaminophen 325 MG Tab PO PRN (05:16)
[2017-07-15] MEDS: hydrALAZINE 50 MG Tab PO SCH ×3 (08:03→20:18)
[2017-07-15] MEDS: amLODIPine 5 MG Tab PO SCH ×2 (08:04→17:07)
[2017-07-15] MEDS: Furosemide 40 MG Tab PO SCH (08:05)
[2017-07-15] MEDS: Isosorbide Mononitrate 60 MG Tab.ER PO SCH ×2 (08:05→17:08)
[2017-07-15] MEDS: Omeprazole 20 MG Cap.CR PO SCH (08:06)
[2017-07-15] MEDS: Acetaminophen 650 MG Tab.ER PO SCH ×2 (08:07→20:17)
[2017-07-15] MEDS: LORazepam 0.5 MG Tab PO SCH (08:07)
[2017-07-15] MEDS: Multivitamin Tab PO SCH (08:12)
[2017-07-15] MEDS: Metoprolol Tartrate 25 MG Tab PO SCH ×2 (08:13→20:17)
[2017-07-15] MEDS: Levothyroxine 50 MCG Tab PO SCH (08:14)
[2017-07-15] MEDS: Lutein/Minerals/Vitamin C/Vitamin E Acetate Cap PO SCH ×2 (08:14→17:08)
[2017-07-15] MEDS: Clopidogrel 75 MG Tab PO SCH (08:14)
[2017-07-15] MEDS: cefTAZidime 1 GM Vial IVPUSH SCH ×2 (08:15→20:18)
[2017-07-15] MEDS: predniSONE 5 MG Tab PO SCH (08:15)
[2017-07-15] MEDS: Linezolid 600 MG in Premix Bag 1 BAG IV SCH ×2 (08:15→20:20)
[2017-07-15] MEDS: Sodium Chloride 0.9% 10 ML Syringe FLUSH PRN ×4 (08:48→20:37)
--- NOTE | 2017-07-15 08:53 | PCM.HP ---
H&P History of Present Illness - General Date of Service: 07/14/17 Admit Problem/Dx: Admission Diagnosis/Problem Admission Diagnosis/Problem Cellulitis Source of Information: Patient, Family, [facility] Records, RN Notes Reviewed History Limitations: Reports: No Limitations - History of Present Illness Onset of Symptoms: Reports: Today Duration of Symptoms: Reports: Hour(s): Location: Reports: Lower Extremity, Left (acute escalation of pain, redness, swelling and exudate to lower leg) Quality: Reports: Ache, Sharp Severity: Severe Improves with: Reports: Medication Worsens with: Reports: Other (examination), Movement Context: Reports: Other (chronic wound) Associated Symptoms: Reports: Malaise, Weakness - Related Data Allergies/Adverse Reactions: Allergies Allergy/AdvReac Type Severity Reaction Status Date / Time atorvastatin calcium Allergy Lightheaded Verified 07/14/17 17:50 [From Lipitor] ness benzalkonium chloride Allergy Redness Verified 07/14/17 17:50 [From Travatan] celecoxib [From Celebrex] Allergy Change Verified 07/14/17 17:50 Mental Status erythromycin base Allergy Hives Verified 07/14/17 17:50 [Erythromycin Base] iodine Allergy Other Verified 07/14/17 17:50 nifedipine Allergy Swelling Verified 07/14/17 17:50 Penicillins Allergy Swelling Verified 07/14/17 17:50 rofecoxib [From Vioxx] Allergy Change Verified 07/14/17 17:50 Mental Status rosuvastatin calcium Allergy Lightheaded Verified 07/14/17 17:50 [From Crestor] ness sulfamethoxazole Allergy Hives Verified 07/14/17 17:50 [From Sulfamethoprim] travoprost [From Travatan] Allergy Redness Verified 07/14/17 17:50 trimethoprim Allergy Hives Verified 07/14/17 17:50 [From Sulfamethoprim] valdecoxib [From Bextra] Allergy Change Verified 07/14/17 17:50 Mental Status soy Allergy Nausea and Uncoded 07/14/17 17:50 Vomiting Home Medications: Home Meds Levothyroxine Sodium [Unithroid] 50 mcg PO DAILY 07/15/16 [History] Multivitamin [Daily Rajat] 1 tab PO DAILY 07/15/16 [History] Nitroglycerin [Nitrostat] 0.4 mg SL Q5M PRN 07/15/16 [History] Cholecalciferol (Vitamin D3) [Vitamin D3] 2,000 unit PO BEDTIME 09/30/16 [ History] Acetaminophen [Tylenol Arthritis] 1,300 mg PO BID 12/05/16 [History] L.acidoph,Paracasei, B.lactis [Probiotic] 1 each PO BEDTIME 12/05/16 [History] Omeprazole Magnesium [Prilosec Otc] 20 mg PO DAILY 12/05/16 [History] Clopidogrel [Plavix] 75 mg PO DAILY 06/10/17 [History] Cyclobenzaprine HCl 5 mg PO TID PRN 06/10/17 [History] LORazepam 1 mg PO BEDTIME 06/10/17 [History] LORazepam [Ativan] 0.5 mg PO DAILY 06/10/17 [History] Losartan [Cozaar] 100 mg PO DAILY@1800 06/10/17 [History] Lutein Extract/Zeaxanthin Ext [Lutein 15 MG Softgel] 1 cap PO BID 06/10/17 [ History] Prednisone [IJP: Prednisone] 5 mg PO DAILY 06/10/17 [History] Sennosides/Docusate Sodium [Senna-S] 1 each PO DAILY 06/10/17 [History] Ubidecarenone [Coenzyme Q10] 100 mg PO BEDTIME 06/10/17 [History] hydrALAZINE [Apresoline] 100 mg PO TID@0600,1400,199906/10/17 [History] oxyCODONE 5 mg PO Q6HR PRN 06/10/17 [History] Acetaminophen [Tylenol] 650 mg PO Q4HR PRN 07/14/17 [History] Dextran 70/Hypromellose [Artificial Tears] 2 ml OP Q1H PRN 07/14/17 [History] Furosemide 40 mg PO DAILY@0600 07/14/17 [History] Isosorbide Mononitrate [Imdur] 60 mg PO BID@0800,199907/14/17 [History] LORazepam [Ativan] 0.5 mg PO Q8HR PRN 07/14/17 [History] Metoprolol Tartrate 12.5 mg PO Q12HR@0800,199907/14/17 [History] Sennosides/Docusate Sodium [Senna Plus Tablet] 1 tab PO Q48H 07/14/17 [History] amLODIPine Besylate [Amlodipine Besylate] 5 mg PO 0600,1800 07/14/17 [History] guanFACINE 1 mg PO BEDTIME 07/14/17 [History] Past Medical History HEENT History: Reports: Allergic Rhinitis, Cataract, Glaucoma, Hard of Hearing, Impaired Vision, Other (See Below) Other HEENT History: Patient wears trifocals, bilateral hearing aides Cardiovascular History: Reports: Afib, Arrhythmia, Blood Clots/VTE/DVT, CAD, Cardiomyopathy, Heart Failure, Heart Murmur, High Cholesterol, Hypertension, PVD , Other (See Below) Other Cardiovascular History: First degree A-V block, PVCs, PACs, distant brief atrial fibrillation, patient denies previous NH despite medical records, grade 2 diastolic dysfunction, moderate left ventricular hypertrophy and left atrial enlargement by echocardiogram, mild pulmonary valve insufficiency and mild to moderate tricuspid valve insufficiency with additional mild mitral valve insufficiency by echocardiogram, mild aortic valve sclerosis without stenosis, mild carotid occlusive, history of superficial thrombophlebitis and varicose veins, DVT of the proximal left femoral vein on 08/09/15 with right-sided PE on 05/08/16 and current warfarin therapy Respiratory History: Reports: COPD, Intubation, Previous, PE, Sleep Apnea, SOB, Other (See Below) Other Respiratory History: Patient does use CPAP for her moderate to severe obstructive sleep apnea with previous history of nocturnal hypoxemia, PE as above, benign pulmonary nodules with previous left apical benign granuloma by CT scan on 05/08/16, COPD by chest x-ray with no medical therapy Gastrointestinal History: Reports: Chronic Constipation, Diverticulosis, GERD, Hiatal Hernia, Other (See Below) Other Gastrointestinal History: Probable benign right hepatic mass at about 2.[address] scan on 08/11/16, Benign hepatic cysts by CT scan on 02/18/16, fatty liver secondary to hyperlipidemia Genitourinary History: Reports: Chronic Renal Insuffiency, Renal Disease, Urinary Incontinence, Other (See Below) Other Genitourinary History: kidney disease stage 3, bilateral benign renal cysts [employer] History: Reports: Dysfunctional Uterine Bleeding, Fibroids, Other OB/BYN History: surgical menopause Musculoskeletal History: Reports: Arthritis, Back Pain, Chronic, Fibromyalgia, Gout, Neck Pain, Chronic, Osteoarthritis, Osteoporosis, RA Neurological History: Reports: CVA, Headaches, Chronic, Migraines, Other (See Below) Other Neuro History: 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, ambulates with a cane currently, history of distant migraine headaches nonproblematic at this time Psychiatric History: Reports: Addiction, Anxiety, Depression, Other (See Below) Other Psychiatric History: Chronic narcotic use secondary to her fibromyalgia and arthritis Endocrine/Metabolic History: Reports: Hypothyroidism, Osteoporosis, Other (See Below) Other Endocrine/Metabolic History: Hyponatremia secondary to CHF Hematologic History: Reports: Anemia, Blood Transfusion(s), Iron Deficiency, Other (See Below) Other Hematologic History: 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 with transfusion required Immunologic History: Reports: None Oncologic (Cancer) History: Reports: None Dermatologic History: Reports: Other (See Below) Other Dermatologic History: Actinic keratosis of the nose previously treated - Infectious Disease History Infectious Disease History: Reports: Chicken Pox, Measles, Mumps, Shingles - Past Surgical History Head Surgeries/Procedures: Reports: None HEENT Surgical History: Reports: Cataract Surgery, Oral Surgery, Other (See Below) Cardiovascular Surgical History: Reports: Varicose, Vascular Surgery, Other ( See Below) GI Surgical History: Reports: Appendectomy, Colonoscopy, Other (See Below) Female Surgical History: Reports: Breast Biopsy, Hysterectomy, Salpingo- Oophorectomy, Other (See Below) Musculoskeletal Surgical History: Reports: Arthroscopic Knee, Arthroscopic Procedure, Carpal Tunnel, Hip Replacement, Joint Replacement, Other (See Below) Oncologic Surgical History: Reports: Biopsy of Breast, Other (See Below) - Past Imaging History Past Imaging History: Reports: Angiography, Cardiac Echo, Carotid US, CAT Scan, Mammogram, MRI, Sleep Study, Stress Testing, Ultrasound, Venous Doppler Social & Family History - Family History HEENT: Reports: Allergic Rhinitis, Retinal Detachment, Other (See Below) Other HEENT Family History: Daughter with retinal detachment Cardiac: Reports: Bypass, CAD, Heart Murmur, Heart Valve Replacement, High Cholesterol, Hypertension, NH, PVD/COD, Other (See Below) Other Cardiac Family History: Son with mechanical valve replacement and CABG x1 at about age 62, son also - also suffers from hypertension and hyperlipidemia, son with agent orange exposure Respiratory: Reports: None GI: Reports: Celiac Disease, Other (See Below) Other GI Family History: Daughter with celiac disease : Reports: Renal Disease/Insufficiency, Other (See Below) Other Family History: Mother with end-stage renal disease OBGYN: Reports: None Musculoskeletal: Reports: None Neurological: Reports: Migraines, Seizure, Other (See Below) Other Neurological Family History: Granddaughter with seizures at age 19, 2 granddaughters with migraine headaches Psychiatric: Reports: Anxiety, Depression, Other (See Below) Other Psychiatric Family History: Son with anxiety depression disorder Endocrine/Metabolic: Reports: None Hematologic: Reports: None Immunologic: Reports: None Dermatologic: Reports: Psoriasis, Other (See Below) Other Dermatologic Family History: Daughter with psoriasis Oncologic: Reports: Bone, Esophageal, Metastatic, Other (See Below) Other Oncologic Family History: Sister with possible bone cancer fatal at age 18 , sister with fatal throat cancer in her 60s, sister with fatal vaginal cancer in her 60s, father with fatal throat cancer with pulmonary metastases at age 77 - Tobacco Use Smoking Status *Q: Never Smoker Second Hand Smoke Exposure: No - Caffeine Use Caffeine Use: Reports: Coffee, Soda, Tea - Alcohol Use Days Per Week of Alcohol Use: 0 (No previous DWIs, problems with alcohol abuse, etc.) Number of Drinks Per Day: 1 (Usually occasional beer or wine once per month) Total Drinks Per Week: 0 - Recreational Drug Use Recreational Drug Use: No Drug Use in Last 12 Months: No - Living Situation & Occupation Living situation: Reports: , Alone Occupation: Retired H&P Review of Systems - Review of Systems: Review Of Systems: ROS reveals no pertinent complaints other than HPI. Exam - Exam Exam: See Below - Vital Signs Vital Signs: Last Vital Signs Temp 99.2 F 07/15/17 04:57 Pulse 70 07/15/17 08:13 Resp 12 07/15/17 04:57 BP 159/69 H 07/15/17 08:13 Pulse Ox 99 07/15/17 04:57 Weight: 173 lb 11.2 oz - Exam General: Alert, Oriented, Moderate Distress HEENT: Mucosa Moist & Blum Neck: Supple, Trachea Midline, 2 Lungs: Clear to Auscultation, Normal Respiratory Effort Cardiovascular: Regular Rate, Regular Rhythm GI/Abdominal Exam: Normal Bowel Sounds, Soft, Non-Tender (Female) Exam: Deferred Rectal (Female) Exam: Deferred Back Exam: Normal Inspection Extremities: Leg Pain (left), Other (LLE wound has been very slowly healing, now with increased pain, purulent exudate and surrounding heat and erythema) Skin: Warm Neuro Extensive - Mental Status: Alert, Oriented x3 Psychiatric: Alert, Normal Affect, Normal Mood, Anxious (increased anxiety regarding LLE) - Patient Data Lab Results Last 24 hrs: Laboratory Results - last 24 hr 07/15/17 07/15/17 Range/Units 07:12 07:12 WBC 7.4 (4.0-10.2) K/uL RBC 3.15 L (3.77-5.09) M/uL Hgb 9.2 L (11.7-15.5) g/dL Hct 28.3 L (34.0-46.0) % MCV 89.8 (84.0-98.0) fL MCH 29.2 (28.2-33.3) pg MCHC 32.5 (31.7-36.0) g/dL RDW 14.4 H (11.2-14.1) % Plt Count 262 (150-350) K/uL Neut % (Auto) 64.9 (45.0-80.0) % Lymph % (Auto) 21.4 (10.0-50.0) % [place] % (Auto) 10.6 (2.0-14.0) % Eos % (Auto) 2.4 (0.0-5.0) % Baso % (Auto) 0.7 (0.0-2.0) % Neut # (Auto) 4.78 (1.40-7.00) K/uL Lymph # (Auto) 1.58 (0.50-3.50) K/uL [place] # (Auto) 0.78 (0.00-1.00) K/uL Eos # (Auto) 0.18 (0.00-0.50) K/uL Baso # (Auto) 0.05 (0.00-0.20) K/uL Sodium 135 L (136-145) mmol/L Potassium 4.6 (3.5-5.1) mmol/L Chloride 99 (98-107) mmol/L Carbon Dioxide 28.7 (21.0-32.0) mmol/L BUN 38 H (7-18) mg/dL Creatinine 1.35 H (0.51-1.17) mg/dL Est Cr Clr Drug Dosing 25.92 mL/min Estimated GFR (MDRD) 37 mL/min Glucose 98 (74-106) mg/dL Calcium 8.4 L (8.5-10.1) mg/dL Total Bilirubin 0.4 (0.2-1.0) mg/dL AST 14 L (15-37) U/L ALT 12 (12-78) U/L Alkaline Phosphatase 54 (46-116) IU/L C-Reactive Protein 0.5 (<=0.9) mg/dL Total Protein 5.8 L (6.4-8.2) g/dL Albumin 2.7 L (3.4-5.0) g/dL Result Diagrams: 07/15/17 07:12 07/15/17 07:12 *Q Meaningful Use (ADM) - VTE *Q VTE Criteria *Q: - Stroke *Q Stroke Criteria *Q: - AMI *Q AMI Criteria *Q: Problem List Initiated/Reviewed/Updated: Yes Orders Last 24hrs: Active Orders 24 hr Category Date Time Status Patient Status [ADT] Routine ADT 07/14/17 17:22 Active CPAP Adult [RT BiPAP/CPAP] [RC] 22 Care 07/14/17 20:00 Active Dressing Change [Wound Care] [RC] 08,20 Care 07/14/17 17:32 Active Height and Weight [RC] DAILY Care 07/14/17 17:22 Active Intake and Output [RC] QSHIFT Care 07/14/17 17:24 Active May Shower [RC] DAILY Care 07/14/17 17:22 Active Notify Provider Consults [RC] DAILY Care 07/14/17 17:40 Active Oxygen Therapy [RC] PRN Care 07/14/17 17:22 Active Up With Assistance [RC] BID Care 07/14/17 17:22 Active Vital Signs [RC] Q4H Care 07/14/17 17:22 Inactive Vital Signs [RC] QID Care 07/14/17 17:37 Active Consult to Case Management [CONS] Routine Cons 07/14/17 17:22 Active Consult to Physician [CONS] Routine Cons 07/14/17 17:39 Active OT Evaluation and Treatment [CONS] Routine Cons 07/14/17 17:22 Active PT Evaluation and Treatment [CONS] Routine Cons 07/14/17 17:22 Active Heart Healthy Diet [DIET] Diet 07/14/17 Dinner Active C-REACTIVE PROTEIN [CHEM] AM Lab 07/16/17 05:11 Ordered C-REACTIVE PROTEIN [CHEM] AM Lab 07/17/17 05:11 Ordered C-REACTIVE PROTEIN [CHEM] AM Lab 07/18/17 05:11 Ordered CBC WITH AUTO DIFF [HEME] AM Lab 07/16/17 05:11 Ordered CBC WITH AUTO DIFF [HEME] AM Lab 07/17/17 05:11 Ordered CBC WITH AUTO DIFF [HEME] AM Lab 07/18/17 05:11 Ordered COMPREHENSIVE METABOLIC PN,CMP [CHEM] AM Lab 07/16/17 05:11 Ordered COMPREHENSIVE METABOLIC PN,CMP [CHEM] AM Lab 07/17/17 05:11 Ordered COMPREHENSIVE METABOLIC PN,CMP [CHEM] AM Lab 07/18/17 05:11 Ordered Acetaminophen [Tylenol Arthritis Pain] Med 07/14/17 20:00 Active 1,300 mg PO Q12H Acetaminophen [Tylenol] Med 07/14/17 17:45 Active 650 mg PO Q4H PRN Cholecalciferol (Vitamin D3) [Vitamin D3] Med 07/14/17 20:00 Active 2,000 units PO BEDTIME Clopidogrel [Plavix] Med 07/15/17 08:00 Active 75 mg PO DAILY Cyclobenzaprine [Flexeril] Med 07/14/17 17:50 Active 5 mg PO TID PRN Docusate Sodium/Sennosides [Senna Plus] Med 07/15/17 08:00 Active 1 tab PO DAILY Docusate Sodium/Sennosides [Senna Plus] Med 07/14/17 18:00 Active 1 tab PO Q48H Furosemide [Lasix] Med 07/15/17 06:00 Active 40 mg PO DAILY@0600 Isosorbide Mononitrate [Imdur] Med 07/14/17 18:00 Active 60 mg PO Q12H LORazepam [Ativan] Med 07/15/17 08:00 Active 0.5 mg PO DAILY LORazepam [Ativan] Med 07/14/17 18:02 Active 0.5 mg PO Q8H PRN LORazepam [Ativan] Med 07/14/17 20:00 Active 1 mg PO BEDTIME Lactobacillus Rhamnosus GG [Culturelle] Med 07/14/17 20:00 Active 1 cap PO BEDTIME Levothyroxine [Synthroid] Med 07/15/17 07:30 Active 50 mcg PO ACBREAKFAST Linezolid [Zyvox] 600 mg Med 07/14/17 20:00 Active Premix Bag 1 bag IV Q12HR Losartan [Cozaar] Med 07/14/17 19:00 Active 100 mg PO DAILY@1800 Lutein/Min/Vit C/Vit E Acetate [Ocuvite Lutein] Med 07/14/17 18:00 Active 1 each PO BID Metoprolol Tartrate [Lopressor] Med 07/14/17 20:00 Active 12.5 mg PO Q12HR Multivitamins [Tab-A-Rajat] Med 07/15/17 08:00 Active 1 tab PO DAILY Nitroglycerin [Nitrostat] Med 07/14/17 18:07 Active 0.4 mg SL Q5M PRN Omeprazole Med 07/15/17 08:00 Active 20 mg PO DAILY Polyvinyl Alcohol [LiquiTears 1.4% Ophth Soln] Med 07/14/17 17:45 Active See Dose Instructions EYEBOTH Q1H PRN Sodium Chloride 0.9% [Saline Flush] Med 07/14/17 17:22 Active 10 ml FLUSH ASDIRECTED PRN Ubidecarenone [Coenzyme Q10] Med 07/14/17 20:00 Active 100 mg PO BEDTIME amLODIPine [Norvasc] Med 07/14/17 18:00 Active 5 mg PO BID@0600,1800 cefTAZidime [Fortaz] Med 07/15/17 00:00 Active 1 gm IVPUSH Q8HR guanFACINE Med 07/14/17 20:00 Active 1 mg PO BEDTIME hydrALAZINE [Apresoline] Med 07/14/17 20:00 Active 100 mg PO TID@0600,1400,2000 oxyCODONE Med 07/14/17 18:09 Active 5 mg PO Q6H PRN predniSONE Med 07/15/17 08:00 Active 5 mg PO WITHBREAKFAST Saline Lock Insert [OM.PC] Routine Oth 07/14/17 17:22 Ordered Resuscitation Status Routine Resus Stat 07/14/17 17:22 Ordered Medication Orders Acetaminophen (Tylenol Arthritis Pain) 1,300 mg PO Q12H NIKITA Last Admin: 07/15/17 08:07 Dose: 1,300 mg Admin: 07/14/17 20:40 Dose: 1,300 mg Acetaminophen (Tylenol) 650 mg PO Q4H PRN PRN Reason: Pain Last Admin: 07/15/17 05:16 Dose: 650 mg Amlodipine Besylate (Norvasc) 5 mg PO BID@0600,1800 [facility] Last Admin: 07/15/17 08:04 Dose: 5 mg Admin: 07/14/17 20:41 Dose: 5 mg Artificial Tears (Liquitears 1.4% Ophth Soln) 0 ml EYEBOTH Q1H PRN PRN Reason: Dry Eyes Ceftazidime (Fortaz) 1 gm IVPUSH Q8HR [facility] Last Admin: 07/15/17 08:15 Dose: 1 gm Admin: 07/14/17 23:03 Dose: 1 gm Cholecalciferol (Vitamin D3) 2,000 units PO BEDTIME [facility] Last Admin: 07/14/17 20:39 Dose: 2,000 units Clopidogrel Bisulfate (Plavix) 75 mg PO DAILY [facility] Last Admin: 07/15/17 08:14 Dose: 75 mg Coenzyme Q10 (Coenzyme Q10) 100 mg PO BEDTIME [facility] Last Admin: 07/14/17 20:40 Dose: 100 mg Cyclobenzaprine HCl (Flexeril) 5 mg PO TID PRN PRN Reason: spasms Last Admin: 07/14/17 20:43 Dose: 5 mg Furosemide (Lasix) 40 mg PO DAILY@0600 [facility] Last Admin: 07/15/17 08:05 Dose: 40 mg Guanfacine HCl (Guanfacine) 1 mg PO BEDTIME [facility] Last Admin: 07/14/17 20:40 Dose: 1 mg Hydralazine HCl (Apresoline) 100 mg PO TID@0600,1400,2000 [facility] Last Admin: 07/15/17 08:03 Dose: 100 mg Admin: 07/14/17 20:42 Dose: 100 mg Linezolid 600 mg/ Premix 300 mls @ 150 mls/hr IV Q12HR [facility] Last Admin: 07/15/17 08:15 Dose: 150 mls/hr Infusion: 07/14/17 22:44 Dose: 150 mls/hr Admin: 07/14/17 20:44 Dose: 150 mls/hr Isosorbide Mononitrate (Imdur) 60 mg PO Q12H [facility] Last Admin: 07/15/17 08:05 Dose: 60 mg Admin: 07/14/17 20:41 Dose: 60 mg Lactobacillus Rhamnosus (Culturelle) 1 cap PO BEDTIME [facility] Last Admin: 07/14/17 20:41 Dose: 1 cap Levothyroxine Sodium (Synthroid) 50 mcg PO ACBREAKFAST [facility] Last Admin: 07/15/17 08:14 Dose: 50 mcg Lorazepam (Ativan) 0.5 mg PO DAILY [facility] Last Admin: 07/15/17 08:07 Dose: 0.5 mg Lorazepam (Ativan) 1 mg PO BEDTIME [facility] Last Admin: 07/14/17 20:42 Dose: 1 mg Lorazepam (Ativan) 0.5 mg PO Q8H PRN PRN Reason: Anxiety Losartan Potassium (Cozaar) 100 mg PO DAILY@1800 [facility] Last Admin: 07/14/17 20:40 Dose: 100 mg Metoprolol Tartrate (Lopressor) 12.5 mg PO Q12HR [facility] Last Admin: 07/15/17 08:13 Dose: 12.5 mg Admin: 07/14/17 20:41 Dose: 12.5 mg Multivitamins/Minerals/Vitamin C (Tab-A-Rajat) 1 tab PO DAILY [facility] Last Admin: 07/15/17 08:12 Dose: 1 tab Nitroglycerin (Nitrostat) 0.4 mg SL Q5M PRN PRN Reason: Chest Pain Omeprazole (Omeprazole) 20 mg PO DAILY [facility] Last Admin: 07/15/17 08:06 Dose: 20 mg Oxycodone HCl (Oxycodone) 5 mg PO Q6H PRN PRN Reason: Pain Prednisone (Prednisone) 5 mg PO WITHBREAKFAST [facility] Last Admin: 07/15/17 08:15 Dose: 5 mg Senna/Docusate Sodium (Senna Plus) 1 tab PO Q48H [facility] Last Admin: 07/14/17 21:24 Dose: Not Given Senna/Docusate Sodium (Senna Plus) 1 tab PO DAILY [facility] Last Admin: 07/15/17 08:13 Dose: 1 tab Sodium Chloride (Saline Flush) 10 ml FLUSH ASDIRECTED PRN PRN Reason: Keep Vein Open Last Admin: 07/14/17 23:03 Dose: 10 ml Vit C/Vit E/Zinc/Copper/Lutein (Ocuvite Lutein) 1 each PO BID [facility] Last Admin: 07/15/17 08:14 Dose: 1 each Admin: 07/14/17 20:40 Dose: 1 each Assessment/Plan Comment:: 07-15-17 Beth Vivas PA-C Patient was transferred from SWB status late yesterday afternoon to for acute onset of LLE cellulitis and wound infection at the site of the wound that had been very slowly improving during her SWB stay. Sample of the purulent drainage was obtained for C&S. She was started on IV Fortaz and Zyvox. Dressings were changed to Aquacel w/silver covered with Optifoam. Dr. Blackman was consulted at the time of the admit. Consult was placed for Dr. Maynor Bolanos to evaluate next week.
[2017-07-15] MEDS: Losartan 50 MG Tab PO SCH (17:08)
[2017-07-15] MEDS ORDERED: Losartan 50 MG Tab PO SCH (18:00)
[2017-07-15] MEDS: Lactobacillus Rhamnosus GG (Probiotic) Cap PO SCH (20:16)
[2017-07-15] MEDS: guanFACINE 1 MG Tab PO SCH (20:16)
[2017-07-15] MEDS: Cholecalciferol (Vitamin D3) 1,000 Unit Tab PO SCH (20:16)
[2017-07-15] MEDS: LORazepam 1 MG Tab PO SCH (20:17)
[2017-07-15] MEDS: Cyclobenzaprine 10 MG Tab PO PRN (20:17)
--- NOTE | 2017-07-15 22:12 | PCM.PN ---
- General Info Date of Service: 07/15/17 Admission Dx/Problem (Free Text): Admission Diagnosis/Problem Admission Diagnosis/Problem Cellulitis Functional Status: Reports: Pain Controlled - Review of Systems General: Reports: No Symptoms HEENT: Reports: No Symptoms Pulmonary: Reports: No Symptoms Cardiovascular: Reports: No Symptoms Gastrointestinal: Reports: No Symptoms Genitourinary: Reports: No Symptoms Musculoskeletal: Reports: Leg Pain (left) Skin: Reports: Other (wound LLE) Neurological: Reports: No Symptoms Psychiatric: Reports: Depression - Patient Data Vitals - Most Recent: Last Vital Signs Temp 97.7 F 07/15/17 19:51 Pulse 79 07/15/17 20:17 Resp 18 07/15/17 19:51 BP 125/56 L 07/15/17 20:18 Pulse Ox 95 07/15/17 19:51 Weight - Most Recent: 173 lb 11.2 oz I&O - Last 24 Hours: Intake & Output 07/15/17 07/15/17 07/15/17 06:59 14:59 22:59 Intake Total 990 870 Output Total 100 400 Balance 890 470 Lab Results Last 24 Hours: Laboratory Results - last 24 hr 07/15/17 07/15/17 Range/Units 07:12 07:12 WBC 7.4 (4.0-10.2) K/uL RBC 3.15 L (3.77-5.09) M/uL Hgb 9.2 L (11.7-15.5) g/dL Hct 28.3 L (34.0-46.0) % MCV 89.8 (84.0-98.0) fL MCH 29.2 (28.2-33.3) pg MCHC 32.5 (31.7-36.0) g/dL RDW 14.4 H (11.2-14.1) % Plt Count 262 (150-350) K/uL Neut % (Auto) 64.9 (45.0-80.0) % Lymph % (Auto) 21.4 (10.0-50.0) % [place] % (Auto) 10.6 (2.0-14.0) % Eos % (Auto) 2.4 (0.0-5.0) % Baso % (Auto) 0.7 (0.0-2.0) % Neut # (Auto) 4.78 (1.40-7.00) K/uL Lymph # (Auto) 1.58 (0.50-3.50) K/uL [place] # (Auto) 0.78 (0.00-1.00) K/uL Eos # (Auto) 0.18 (0.00-0.50) K/uL Baso # (Auto) 0.05 (0.00-0.20) K/uL Sodium 135 L (136-145) mmol/L Potassium 4.6 (3.5-5.1) mmol/L Chloride 99 (98-107) mmol/L Carbon Dioxide 28.7 (21.0-32.0) mmol/L BUN 38 H (7-18) mg/dL Creatinine 1.35 H (0.51-1.17) mg/dL Est Cr Clr Drug Dosing 25.92 mL/min Estimated GFR (MDRD) 37 mL/min Glucose 98 (74-106) mg/dL Calcium 8.4 L (8.5-10.1) mg/dL Total Bilirubin 0.4 (0.2-1.0) mg/dL AST 14 L (15-37) U/L ALT 12 (12-78) U/L Alkaline Phosphatase 54 (46-116) IU/L C-Reactive Protein 0.5 (<=0.9) mg/dL Total Protein 5.8 L (6.4-8.2) g/dL Albumin 2.7 L (3.4-5.0) g/dL Med Orders - Current: Current Medications Acetaminophen (Tylenol Arthritis Pain) 1,300 mg PO Q12H [facility] Last Admin: 07/15/17 20:17 Dose: 1,300 mg Acetaminophen (Tylenol) 650 mg PO Q4H PRN PRN Reason: Pain Last Admin: 07/15/17 05:16 Dose: 650 mg Amlodipine Besylate (Norvasc) 5 mg PO BID@0600,1800 [facility] Last Admin: 07/15/17 17:07 Dose: 5 mg Artificial Tears (Liquitears 1.4% Ophth Soln) 0 ml EYEBOTH Q1H PRN PRN Reason: Dry Eyes Ceftazidime (Fortaz) 1 gm IVPUSH Q12HR [facility] Last Admin: 07/15/17 20:18 Dose: 1 gm Cholecalciferol (Vitamin D3) 2,000 units PO BEDTIME [facility] Last Admin: 07/15/17 20:16 Dose: 2,000 units Clopidogrel Bisulfate (Plavix) 75 mg PO DAILY [facility] Last Admin: 07/15/17 08:14 Dose: 75 mg Coenzyme Q10 (Coenzyme Q10) 100 mg PO BEDTIME [facility] Last Admin: 07/15/17 20:18 Dose: 100 mg Cyclobenzaprine HCl (Flexeril) 5 mg PO TID PRN PRN Reason: spasms Last Admin: 07/15/17 20:17 Dose: 5 mg Furosemide (Lasix) 40 mg PO DAILY@0600 [facility] Last Admin: 07/15/17 08:05 Dose: 40 mg Guanfacine HCl (Guanfacine) 1 mg PO BEDTIME [facility] Last Admin: 07/15/17 20:16 Dose: 1 mg Hydralazine HCl (Apresoline) 100 mg PO TID@0600,1400,2000 [facility] Last Admin: 07/15/17 20:18 Dose: 100 mg Linezolid 600 mg/ Premix 300 mls @ 150 mls/hr IV Q12HR [facility] Last Admin: 07/15/17 20:20 Dose: 150 mls/hr Isosorbide Mononitrate (Imdur) 60 mg PO Q12H [facility] Last Admin: 07/15/17 17:08 Dose: 60 mg Lactobacillus Rhamnosus (Culturelle) 1 cap PO BEDTIME [facility] Last Admin: 07/15/17 20:16 Dose: 1 cap Levothyroxine Sodium (Synthroid) 50 mcg PO ACBREAKFAST [facility] Last Admin: 07/15/17 08:14 Dose: 50 mcg Lorazepam (Ativan) 0.5 mg PO DAILY [facility] Last Admin: 07/15/17 08:07 Dose: 0.5 mg Lorazepam (Ativan) 1 mg PO BEDTIME [facility] Last Admin: 07/15/17 20:17 Dose: 1 mg Lorazepam (Ativan) 0.5 mg PO Q8H PRN PRN Reason: Anxiety Losartan Potassium (Cozaar) 100 mg PO DAILY@1800 [facility] Last Admin: 07/15/17 17:08 Dose: 100 mg Metoprolol Tartrate (Lopressor) 12.5 mg PO Q12HR [facility] Last Admin: 07/15/17 20:17 Dose: 12.5 mg Multivitamins/Minerals/Vitamin C (Tab-A-Rajat) 1 tab PO DAILY [facility] Last Admin: 07/15/17 08:12 Dose: 1 tab Nitroglycerin (Nitrostat) 0.4 mg SL Q5M PRN PRN Reason: Chest Pain Omeprazole (Omeprazole) 20 mg PO DAILY [facility] Last Admin: 07/15/17 08:06 Dose: 20 mg Oxycodone HCl (Oxycodone) 5 mg PO Q6H PRN PRN Reason: Pain Prednisone (Prednisone) 5 mg PO WITHBREAKFAST [facility] Last Admin: 07/15/17 08:15 Dose: 5 mg Senna/Docusate Sodium (Senna Plus) 1 tab PO Q48H [facility] Last Admin: 07/14/17 21:24 Dose: Not Given Senna/Docusate Sodium (Senna Plus) 1 tab PO DAILY [facility] Last Admin: 07/15/17 08:13 Dose: 1 tab Sodium Chloride (Saline Flush) 10 ml FLUSH ASDIRECTED PRN PRN Reason: Keep Vein Open Last Admin: 07/15/17 20:37 Dose: 10 ml Vit C/Vit E/Zinc/Copper/Lutein (Ocuvite Lutein) 1 each PO BID [facility] Last Admin: 07/15/17 17:08 Dose: 1 each Discontinued Medications Ceftazidime (Fortaz) 1 gm IVPUSH Q8HR [facility] Last Admin: 07/15/17 08:15 Dose: 1 gm - Exam Quality Assessment: Central Line/PICC General: Alert, Cooperative HEENT: Mucous Membr. Moist/[place] Neck: Trachea Midline, No JVD Lungs: Clear to Auscultation, Normal Respiratory Effort Cardiovascular: Regular Rate, Regular Rhythm GI/Abdominal Exam: Soft, Non-Tender, No Distention (Female) Exam: Deferred Back Exam: Normal Inspection Extremities: Leg Pain, Redness Skin: Warm, Dry, Intact Wound/Incisions: Dressing Dry and Intact, Erythema Improving Neurological: No New Focal Deficit Psy/Mental Status: Depressed - Problem List & Annotations (1) Cellulitis SNOMED Code(s): 837331347 Code(s): L03.90 - CELLULITIS, UNSPECIFIED Status: Acute Priority: High Current Visit: Yes (2) Ulcer of left lower extremity SNOMED Code(s): 42081578 Code(s): L97.929 - NON-PRS CHRONIC ULC UNSP PRT OF L LOW LEG W UNSP SEVERITY Status: Acute Priority: High Current Visit: No Qualifiers: Non-pressure ulcer stage: with fat layer exposed Qualified Code(s): L97.922 - Non-pressure chronic ulcer of unspecified part of left lower leg with fat layer exposed (3) Ulcer of left [place] with fat layer exposed SNOMED Code(s): 942454152 Code(s): L97.822 - NON-PRS CHRONIC ULCER OTH PRT L LOW LEG W FAT LAYER EXPOSED Status: Acute Priority: High Current Visit: No (4) Varicose veins of both legs with edema SNOMED Code(s): 46743706 Code(s): I83.893 - VARICOSE VEINS OF BI LOW EXTREM W OTH COMPLICATIONS Status: Acute Priority: High Current Visit: No (5) Wound SNOMED Code(s): 471422379 Code(s): T14.90 - INJURY, UNSPECIFIED * DO NOT USE * Status: Acute Priority: High Current Visit: No Onset Date: 08/07/14 Annotation/Comment: : Multiple superficial abrasions/lacerations as above not requiring surgical repair. Tetanus booster is up to date. Wound care discussed. Neosporin dressings placed by the nurse - Problem List Review Problem List Initiated/Reviewed/Updated: Yes - My Orders Last 24 Hours: My Active Orders 07/15/17 15:07 Central Line PICC Insertion [Central Venous Line Insertion] [OM.PC] Routine 07/15/17 15:36 Central Line Assessment [RC] ,20 07/15/17 16:00 OR PCXR-No Charge-PICC/Central [CR] Routine - Plan Plan:: 07-15-17 Beth Vivas PA-C Patient was transferred from B status late yesterday afternoon to for acute onset of LLE cellulitis and wound infection at the site of the wound that had been very slowly improving during her [facility] stay. Sample of the purulent drainage was obtained for C&S. She was started on IV Fortaz and Zyvox. Dressings were changed to Aquacel w/silver covered with Optifoam. Dr. Blackman was consulted at the time of the admit. Consult was placed for Dr. Maynor Bolanos to evaluate next week. 07/15/17 Yehuda Quintana MD Very difficult IV start. PICC line needed. Continue IV antibiotics. Culture pending.
[2017-07-16] MEDS: Furosemide 40 MG Tab PO SCH (05:30)
[2017-07-16] MEDS: Isosorbide Mononitrate 60 MG Tab.ER PO SCH ×2 (05:30→17:36)
[2017-07-16] MEDS: hydrALAZINE 50 MG Tab PO SCH ×3 (05:30→19:36)
[2017-07-16] MEDS: amLODIPine 5 MG Tab PO SCH ×2 (05:31→17:36)
[2017-07-16] MEDS: Lutein/Minerals/Vitamin C/Vitamin E Acetate Cap PO SCH ×2 (08:39→17:36)
[2017-07-16] MEDS: Clopidogrel 75 MG Tab PO SCH (08:40)
[2017-07-16] MEDS: Multivitamin Tab PO SCH (08:40)
[2017-07-16] MEDS: Levothyroxine 50 MCG Tab PO SCH (08:41)
[2017-07-16] MEDS: predniSONE 5 MG Tab PO SCH (08:41)
[2017-07-16] MEDS: Omeprazole 20 MG Cap.CR PO SCH (08:41)
[2017-07-16] MEDS: Acetaminophen 650 MG Tab.ER PO SCH ×2 (08:43→19:37)
[2017-07-16] MEDS: LORazepam 0.5 MG Tab PO SCH (08:43)
[2017-07-16] MEDS: Metoprolol Tartrate 25 MG Tab PO SCH ×2 (08:44→19:37)
[2017-07-16] MEDS: cefTAZidime 1 GM Vial IVPUSH SCH (08:48)
[2017-07-16] MEDS: Linezolid 600 MG in Premix Bag 1 BAG IV SCH ×2 (08:50→19:38)
--- NOTE | 2017-07-16 13:44 | PCM.PN ---
- General Info Date of Service: 07/16/17 Admission Dx/Problem (Free Text): Admission Diagnosis/Problem Admission Diagnosis/Problem Cellulitis Functional Status: Reports: Pain Controlled, Tolerating Diet - Review of Systems General: Reports: Weakness, Fatigue HEENT: Reports: No Symptoms Pulmonary: Reports: No Symptoms Cardiovascular: Reports: No Symptoms Gastrointestinal: Reports: No Symptoms Genitourinary: Reports: No Symptoms Musculoskeletal: Reports: No Symptoms Skin: Reports: Other (open ulcer to left LE) Neurological: Reports: No Symptoms Psychiatric: Reports: No Symptoms - Patient Data Vitals - Most Recent: Last Vital Signs Temp 98 F 07/16/17 12:00 Pulse 66 07/16/17 12:00 Resp 17 07/16/17 12:00 BP 127/52 L 07/16/17 12:00 Pulse Ox 96 07/16/17 12:00 Weight - Most Recent: 174 lb 11.2 oz I&O - Last 24 Hours: Intake & Output 07/15/17 07/16/17 07/16/17 22:59 06:59 14:59 Intake Total 822 376 6704 Output Total 400 Balance 302 520 9612 Lab Results Last 24 Hours: Laboratory Results - last 24 hr 07/16/17 07/16/17 Range/Units 06:50 06:50 WBC 7.8 (4.0-10.2) K/uL RBC 3.14 L (3.77-5.09) M/uL Hgb 9.1 L (11.7-15.5) g/dL Hct 27.8 L (34.0-46.0) % MCV 88.5 (84.0-98.0) fL MCH 29.0 (28.2-33.3) pg MCHC 32.7 (31.7-36.0) g/dL RDW 14.3 H (11.2-14.1) % Plt Count 264 (150-350) K/uL Neut % (Auto) 59.9 (45.0-80.0) % Lymph % (Auto) 24.6 (10.0-50.0) % [place] % (Auto) 12.1 (2.0-14.0) % Eos % (Auto) 2.8 (0.0-5.0) % Baso % (Auto) 0.6 (0.0-2.0) % Neut # (Auto) 4.63 (1.40-7.00) K/uL Lymph # (Auto) 1.91 (0.50-3.50) K/uL [place] # (Auto) 0.94 (0.00-1.00) K/uL Eos # (Auto) 0.22 (0.00-0.50) K/uL Baso # (Auto) 0.05 (0.00-0.20) K/uL Sodium 132 L (136-145) mmol/L Potassium 4.4 (3.5-5.1) mmol/L Chloride 97 L (98-107) mmol/L Carbon Dioxide 28.6 (21.0-32.0) mmol/L BUN 40 H (7-18) mg/dL Creatinine 1.55 H (0.51-1.17) mg/dL Est Cr Clr Drug Dosing 22.58 mL/min Estimated GFR (MDRD) 32 mL/min Glucose 88 (74-106) mg/dL Calcium 8.3 L (8.5-10.1) mg/dL Total Bilirubin 0.4 (0.2-1.0) mg/dL AST 14 L (15-37) U/L ALT 12 (12-78) U/L Alkaline Phosphatase 53 (46-116) IU/L C-Reactive Protein 0.5 (<=0.9) mg/dL Total Protein 5.7 L (6.4-8.2) g/dL Albumin 2.6 L (3.4-5.0) g/dL Med Orders - Current: Current Medications Acetaminophen (Tylenol Arthritis Pain) 1,300 mg PO Q12H [facility] Last Admin: 07/16/17 08:43 Dose: 1,300 mg Acetaminophen (Tylenol) 650 mg PO Q4H PRN PRN Reason: Pain Last Admin: 07/15/17 05:16 Dose: 650 mg Amlodipine Besylate (Norvasc) 5 mg PO BID@0600,1800 [facility] Last Admin: 07/16/17 05:31 Dose: 5 mg Artificial Tears (Liquitears 1.4% Ophth Soln) 0 ml EYEBOTH Q1H PRN PRN Reason: Dry Eyes Cholecalciferol (Vitamin D3) 2,000 units PO BEDTIME [facility] Last Admin: 07/15/17 20:16 Dose: 2,000 units Clopidogrel Bisulfate (Plavix) 75 mg PO DAILY [facility] Last Admin: 07/16/17 08:40 Dose: 75 mg Coenzyme Q10 (Coenzyme Q10) 100 mg PO BEDTIME [facility] Last Admin: 07/15/17 20:18 Dose: 100 mg Cyclobenzaprine HCl (Flexeril) 5 mg PO TID PRN PRN Reason: spasms Last Admin: 07/15/17 20:17 Dose: 5 mg Furosemide (Lasix) 40 mg PO DAILY@0600 [facility] Last Admin: 07/16/17 05:30 Dose: 40 mg Guanfacine HCl (Guanfacine) 1 mg PO BEDTIME [facility] Last Admin: 07/15/17 20:16 Dose: 1 mg Hydralazine HCl (Apresoline) 100 mg PO TID@0600,1400,2000 [facility] Last Admin: 07/16/17 05:30 Dose: 100 mg Linezolid 600 mg/ Premix 300 mls @ 150 mls/hr IV Q12HR [facility] Last Admin: 07/16/17 08:50 Dose: 150 mls/hr Isosorbide Mononitrate (Imdur) 60 mg PO Q12H [facility] Last Admin: 07/16/17 05:30 Dose: 60 mg Lactobacillus Rhamnosus (Culturelle) 1 cap PO BEDTIME [facility] Last Admin: 07/15/17 20:16 Dose: 1 cap Levothyroxine Sodium (Synthroid) 50 mcg PO ACBREAKFAST [facility] Last Admin: 07/16/17 08:41 Dose: 50 mcg Lorazepam (Ativan) 0.5 mg PO DAILY [facility] Last Admin: 07/16/17 08:43 Dose: 0.5 mg Lorazepam (Ativan) 1 mg PO BEDTIME [facility] Last Admin: 07/15/17 20:17 Dose: 1 mg Lorazepam (Ativan) 0.5 mg PO Q8H PRN PRN Reason: Anxiety Losartan Potassium (Cozaar) 100 mg PO DAILY@1800 [facility] Last Admin: 07/15/17 17:08 Dose: 100 mg Metoprolol Tartrate (Lopressor) 12.5 mg PO Q12HR [facility] Last Admin: 07/16/17 08:44 Dose: 12.5 mg Multivitamins/Minerals/Vitamin C (Tab-A-Rajat) 1 tab PO DAILY [facility] Last Admin: 07/16/17 08:40 Dose: 1 tab Nitroglycerin (Nitrostat) 0.4 mg SL Q5M PRN PRN Reason: Chest Pain Omeprazole (Omeprazole) 20 mg PO DAILY [facility] Last Admin: 07/16/17 08:41 Dose: 20 mg Oxycodone HCl (Oxycodone) 5 mg PO Q6H PRN PRN Reason: Pain Prednisone (Prednisone) 5 mg PO WITHBREAKFAST [facility] Last Admin: 07/16/17 08:41 Dose: 5 mg Senna/Docusate Sodium (Senna Plus) 1 tab PO Q48H [facility] Last Admin: 07/14/17 21:24 Dose: Not Given Senna/Docusate Sodium (Senna Plus) 1 tab PO DAILY [facility] Last Admin: 07/16/17 08:40 Dose: 1 tab Sodium Chloride (Saline Flush) 10 ml FLUSH ASDIRECTED PRN PRN Reason: Keep Vein Open Last Admin: 07/15/17 20:37 Dose: 10 ml Vit C/Vit E/Zinc/Copper/Lutein (Ocuvite Lutein) 1 each PO BID [facility] Last Admin: 07/16/17 08:39 Dose: 1 each Discontinued Medications Ceftazidime (Fortaz) 1 gm IVPUSH Q8HR [facility] Last Admin: 07/15/17 08:15 Dose: 1 gm Ceftazidime (Fortaz) 1 gm IVPUSH Q12HR [facility] Last Admin: 07/16/17 08:48 Dose: 1 gm - Exam Quality Assessment: Central Line/PICC, Skin Breakdown General: Alert, Oriented, Cooperative, No Acute Distress Neck: Supple Lungs: Clear to Auscultation, Normal Respiratory Effort Cardiovascular: Regular Rate, Regular Rhythm, No Murmurs GI/Abdominal Exam: Normal Bowel Sounds, Soft, Non-Tender Extremities: Pedal Edema (to LE bilat) Peripheral Pulses: 1+: Dorsalis Pedis (L), Dorsalis Pedis (R) Skin: Warm, Dry, Intact Wound/Incisions: Healing Well, Drainage, Erythema Improving Psy/Mental Status: Alert, Normal Affect, Normal Mood - Problem List & Annotations (1) Cellulitis SNOMED Code(s): 492330609 Code(s): L03.90 - CELLULITIS, UNSPECIFIED Status: Acute Priority: High Current Visit: Yes Qualifiers: Site of cellulitis: extremity Site of cellulitis of extremity: lower extremity Laterality: left Qualified Code(s): L03.116 - Cellulitis of left lower limb (2) Anemia SNOMED Code(s): 187193212 Code(s): D64.9 - ANEMIA, UNSPECIFIED Status: Acute Priority: High Current Visit: No Qualifiers: Anemia type: unspecified type Qualified Code(s): D64.9 - Anemia, unspecified Annotation/Comment:: Hgb 7.2 (3) HTN (hypertension) SNOMED Code(s): 27917399 Code(s): I10 - ESSENTIAL (PRIMARY) HYPERTENSION Status: Acute Priority: High Current Visit: No Qualifiers: Hypertension type: essential hypertension (4) Renal insufficiency SNOMED Code(s): 205200275 Code(s): N28.9 - DISORDER OF KIDNEY AND URETER, UNSPECIFIED Status: Acute Current Visit: Yes - Problem List Review Problem List Initiated/Reviewed/Updated: Yes - Plan Plan:: 07-15-17 Beth Vivas PA-C Patient was transferred from B status late yesterday afternoon to for acute onset of LLE cellulitis and wound infection at the site of the wound that had been very slowly improving during her B stay. Sample of the purulent drainage was obtained for C&S. She was started on IV Fortaz and Zyvox. Dressings were changed to Aquacel w/silver covered with Optifoam. Dr. Blackman was consulted at the time of the admit. Consult was placed for Dr. Maynor Bolanos to evaluate next week. 07/15/17 Yehuda Quintana MD Very difficult IV start. PICC line needed. Continue IV antibiotics. Culture pending. 07/16/2017 Ulcer to left LE prelim shows staph. Kidney function slightly declined, will recheck in the morning. On Zyvox and pharmacy consulted in regards to dosing. Patient states leg is some better, less pain noted. Patient has PICC line, patient continues to need inpatient status due to acute cellulitis in the leg and the extensive ulceration to the leg. Recheck labs in the morning. Continue with current dressing changes. Yarelis klein,[facility]
[2017-07-16] MEDS: Losartan 50 MG Tab PO SCH (17:36)
[2017-07-16] MEDS: LORazepam 0.5 MG Tab PO PRN (18:13)
[2017-07-16] MEDS: Cholecalciferol (Vitamin D3) 1,000 Unit Tab PO SCH (19:35)
[2017-07-16] MEDS: Lactobacillus Rhamnosus GG (Probiotic) Cap PO SCH (19:37)
[2017-07-16] MEDS: LORazepam 1 MG Tab PO SCH (19:37)
[2017-07-16] MEDS: guanFACINE 1 MG Tab PO SCH (19:38)
[2017-07-16] MEDS: Sodium Chloride 0.9% 10 ML Syringe FLUSH PRN (19:38)
[2017-07-17] MEDS: hydrALAZINE 50 MG Tab PO SCH ×3 (06:29→22:32)
[2017-07-17] MEDS: amLODIPine 5 MG Tab PO SCH ×2 (06:29→17:31)
[2017-07-17] MEDS: Furosemide 40 MG Tab PO SCH (06:29)
[2017-07-17] MEDS: Isosorbide Mononitrate 60 MG Tab.ER PO SCH ×2 (06:29→17:31)
[2017-07-17] MEDS: Linezolid 600 MG in Premix Bag 1 BAG IV SCH ×2 (08:03→20:17)
[2017-07-17] MEDS: Sodium Chloride 0.9% 10 ML Syringe FLUSH PRN ×3 (08:06→22:36)
[2017-07-17] MEDS: Lutein/Minerals/Vitamin C/Vitamin E Acetate Cap PO SCH ×2 (08:08→17:31)
[2017-07-17] MEDS: Acetaminophen 650 MG Tab.ER PO SCH ×2 (08:08→20:14)
[2017-07-17] MEDS: Omeprazole 20 MG Cap.CR PO SCH (08:08)
[2017-07-17] MEDS: Clopidogrel 75 MG Tab PO SCH (08:09)
[2017-07-17] MEDS: Levothyroxine 50 MCG Tab PO SCH (08:10)
[2017-07-17] MEDS: predniSONE 5 MG Tab PO SCH (08:10)
[2017-07-17] MEDS: Metoprolol Tartrate 25 MG Tab PO SCH ×2 (08:12→22:32)
[2017-07-17] MEDS: LORazepam 0.5 MG Tab PO SCH (08:12)
[2017-07-17] MEDS: Multivitamin Tab PO SCH (08:15)
[2017-07-17] MEDS: Losartan 50 MG Tab PO SCH (17:30)
--- NOTE | 2017-07-17 18:35 | PCM.PN ---
- General Info Date of Service: 07/17/17 Admission Dx/Problem (Free Text): Admission Diagnosis/Problem Admission Diagnosis/Problem Cellulitis Functional Status: Reports: Ambulating - Review of Systems General: Reports: Fatigue (but feeling better ) HEENT: Reports: No Symptoms Pulmonary: Reports: No Symptoms Cardiovascular: Reports: No Symptoms Gastrointestinal: Reports: No Symptoms Genitourinary: Reports: No Symptoms Musculoskeletal: Reports: Leg Pain (LLE) Skin: Reports: No Symptoms Neurological: Reports: No Symptoms Psychiatric: Reports: No Symptoms - Patient Data Vitals - Most Recent: Last Vital Signs Temp 97.7 F 07/17/17 16:00 Pulse 83 07/17/17 16:00 Resp 18 07/17/17 16:00 BP 148/60 H 07/17/17 17:31 Pulse Ox 94 L 07/17/17 16:00 Weight - Most Recent: 175 lb 12.8 oz I&O - Last 24 Hours: Intake & Output 07/17/17 07/17/17 07/17/17 06:59 14:59 22:59 Intake Total 550 100 Output Total 600 500 Balance -600 50 100 Lab Results Last 24 Hours: Laboratory Results - last 24 hr 07/17/17 07/17/17 Range/Units 08:00 08:00 WBC 7.5 (4.0-10.2) K/uL RBC 3.44 L (3.77-5.09) M/uL Hgb 10.0 L (11.7-15.5) g/dL Hct 30.4 L (34.0-46.0) % MCV 88.4 (84.0-98.0) fL MCH 29.1 (28.2-33.3) pg MCHC 32.9 (31.7-36.0) g/dL RDW 14.2 H (11.2-14.1) % Plt Count 288 (150-350) K/uL Neut % (Auto) 63.7 (45.0-80.0) % Lymph % (Auto) 23.2 (10.0-50.0) % [place] % (Auto) 8.3 (2.0-14.0) % Eos % (Auto) 4.0 (0.0-5.0) % Baso % (Auto) 0.8 (0.0-2.0) % Neut # (Auto) 4.75 (1.40-7.00) K/uL Lymph # (Auto) 1.73 (0.50-3.50) K/uL [place] # (Auto) 0.62 (0.00-1.00) K/uL Eos # (Auto) 0.30 (0.00-0.50) K/uL Baso # (Auto) 0.06 (0.00-0.20) K/uL Sodium 133 L (136-145) mmol/L Potassium 4.3 (3.5-5.1) mmol/L Chloride 95 L (98-107) mmol/L Carbon Dioxide 30.0 (21.0-32.0) mmol/L BUN 38 H (7-18) mg/dL Creatinine 1.41 H (0.51-1.17) mg/dL Est Cr Clr Drug Dosing 24.82 mL/min Estimated GFR (MDRD) 35 mL/min Glucose 108 H (74-106) mg/dL Calcium 8.8 (8.5-10.1) mg/dL Total Bilirubin 0.4 (0.2-1.0) mg/dL AST 18 (15-37) U/L ALT 15 (12-78) U/L Alkaline Phosphatase 63 (46-116) IU/L C-Reactive Protein 0.2 (<=0.9) mg/dL Total Protein 6.7 (6.4-8.2) g/dL Albumin 2.9 L (3.4-5.0) g/dL Med Orders - Current: Current Medications Acetaminophen (Tylenol Arthritis Pain) 1,300 mg PO Q12H [facility] Last Admin: 07/17/17 08:08 Dose: 1,300 mg Acetaminophen (Tylenol) 650 mg PO Q4H PRN PRN Reason: Pain Last Admin: 07/15/17 05:16 Dose: 650 mg Amlodipine Besylate (Norvasc) 5 mg PO BID@0600,1800 [facility] Last Admin: 07/17/17 17:31 Dose: 5 mg Artificial Tears (Liquitears 1.4% Ophth Soln) 0 ml EYEBOTH Q1H PRN PRN Reason: Dry Eyes Cholecalciferol (Vitamin D3) 2,000 units PO BEDTIME [facility] Last Admin: 07/16/17 19:35 Dose: 2,000 units Clopidogrel Bisulfate (Plavix) 75 mg PO DAILY [facility] Last Admin: 07/17/17 08:09 Dose: 75 mg Coenzyme Q10 (Coenzyme Q10) 100 mg PO BEDTIME [facility] Last Admin: 07/16/17 19:38 Dose: 100 mg Cyclobenzaprine HCl (Flexeril) 5 mg PO TID PRN PRN Reason: spasms Last Admin: 07/15/17 20:17 Dose: 5 mg Furosemide (Lasix) 40 mg PO DAILY@0600 [facility] Last Admin: 07/17/17 06:29 Dose: 40 mg Guanfacine HCl (Guanfacine) 1 mg PO BEDTIME [facility] Last Admin: 07/16/17 19:38 Dose: 1 mg Hydralazine HCl (Apresoline) 100 mg PO TID@0600,1400,2000 [facility] Last Admin: 07/17/17 13:43 Dose: 100 mg Linezolid 600 mg/ Premix 300 mls @ 150 mls/hr IV Q12HR [facility] Last Admin: 07/17/17 08:03 Dose: 150 mls/hr Isosorbide Mononitrate (Imdur) 60 mg PO Q12H [facility] Last Admin: 07/17/17 17:31 Dose: 60 mg Lactobacillus Rhamnosus (Culturelle) 1 cap PO BEDTIME [facility] Last Admin: 07/16/17 19:37 Dose: 1 cap Levothyroxine Sodium (Synthroid) 50 mcg PO ACBREAKFAST [facility] Last Admin: 07/17/17 08:10 Dose: 50 mcg Lorazepam (Ativan) 0.5 mg PO DAILY [facility] Last Admin: 07/17/17 08:12 Dose: 0.5 mg Lorazepam (Ativan) 1 mg PO BEDTIME [facility] Last Admin: 07/16/17 19:37 Dose: 1 mg Lorazepam (Ativan) 0.5 mg PO Q8H PRN PRN Reason: Anxiety Last Admin: 07/16/17 18:13 Dose: 0.5 mg Losartan Potassium (Cozaar) 100 mg PO DAILY@1800 [facility] Last Admin: 07/17/17 17:30 Dose: 100 mg Metoprolol Tartrate (Lopressor) 12.5 mg PO Q12HR [facility] Last Admin: 07/17/17 08:12 Dose: 12.5 mg Multivitamins/Minerals/Vitamin C (Tab-A-Rajat) 1 tab PO DAILY [facility] Last Admin: 07/17/17 08:15 Dose: 1 tab Nitroglycerin (Nitrostat) 0.4 mg SL Q5M PRN PRN Reason: Chest Pain Omeprazole (Omeprazole) 20 mg PO DAILY [facility] Last Admin: 07/17/17 08:08 Dose: 20 mg Oxycodone HCl (Oxycodone) 5 mg PO Q6H PRN PRN Reason: Pain Prednisone (Prednisone) 5 mg PO WITHBREAKFAST [facility] Last Admin: 07/17/17 08:10 Dose: 5 mg Senna/Docusate Sodium (Senna Plus) 1 tab PO Q48H [facility] Last Admin: 07/16/17 17:36 Dose: 1 tab Senna/Docusate Sodium (Senna Plus) 1 tab PO DAILY [facility] Last Admin: 07/17/17 08:11 Dose: 1 tab Sodium Chloride (Saline Flush) 10 ml FLUSH ASDIRECTED PRN PRN Reason: Keep Vein Open Last Admin: 07/17/17 10:10 Dose: 10 ml Vit C/Vit E/Zinc/Copper/Lutein (Ocuvite Lutein) 1 each PO BID [facility] Last Admin: 07/17/17 17:31 Dose: 1 each Discontinued Medications Ceftazidime (Fortaz) 1 gm IVPUSH Q8HR [facility] Last Admin: 07/15/17 08:15 Dose: 1 gm Ceftazidime (Fortaz) 1 gm IVPUSH Q12HR [facility] Last Admin: 07/16/17 08:48 Dose: 1 gm - Exam General: Alert, Oriented HEENT: Mucous Membr. Moist/[place] Neck: Supple, Trachea Midline Lungs: Clear to Auscultation Cardiovascular: Regular Rate, Regular Rhythm GI/Abdominal Exam: Normal Bowel Sounds, Soft, Non-Tender, No Distention (Female) Exam: Deferred Back Exam: Normal Inspection Extremities: Other (LLE wrapped) Skin: Warm, Dry, Intact Wound/Incisions: Drainage Neurological: No New Focal Deficit Psy/Mental Status: Alert, Normal Affect, Normal Mood, Other (understood from staff pt has been emotional and crying, says she has these times but is feeling better now) - Problem List Review Problem List Initiated/Reviewed/Updated: Yes - My Orders Last 24 Hours: My Active Orders 07/18/17 05:11 C-REACTIVE PROTEIN [CHEM] AM CBC WITH AUTO DIFF [HEME] AM COMPREHENSIVE METABOLIC PN,CMP [CHEM] AM 07/18/17 08:00 Dressing Change [Wound Care] [RC] DAILY - Plan Plan:: 07-15-17 Beth Vivas PA-C Patient was transferred from SWB status late yesterday afternoon to for acute onset of LLE cellulitis and wound infection at the site of the wound that had been very slowly improving during her SWB stay. Sample of the purulent drainage was obtained for C&S. She was started on IV Fortaz and Zyvox. Dressings were changed to Aquacel w/silver covered with Optifoam. Dr. Blackman was consulted at the time of the admit. Consult was placed for Dr. Maynor Bolanos to evaluate next week. 07/15/17 Yehuda Quintana MD Very difficult IV start. PICC line needed. Continue IV antibiotics. Culture pending. 07/16/2017 Ulcer to left LE prelim shows staph. Kidney function slightly declined, will recheck in the morning. On Zyvox and pharmacy consulted in regards to dosing. Patient states leg is some better, less pain noted. Patient has PICC line, patient continues to need inpatient status due to acute cellulitis in the leg and the extensive ulceration to the leg. Recheck labs in the morning. Continue with current dressing changes. Yarelis klein,JOSÉ MIGUEL 07-17-17 Beth Vivas PA-C Patient has been up ambulating up in the hallway, says feel good to be up. Leg a little more sore when up ambulating, but she says tolerable. Changed dressing to Alginate to open area covered by Optifoam.
[2017-07-17] MEDS: Cholecalciferol (Vitamin D3) 1,000 Unit Tab PO SCH (20:15)
[2017-07-17] MEDS: Lactobacillus Rhamnosus GG (Probiotic) Cap PO SCH (20:15)
[2017-07-17] MEDS: LORazepam 1 MG Tab PO SCH (20:16)
[2017-07-17] MEDS: guanFACINE 1 MG Tab PO SCH (22:32)
[2017-07-18] MEDS: amLODIPine 5 MG Tab PO SCH ×2 (06:18→19:52)
[2017-07-18] MEDS: Isosorbide Mononitrate 60 MG Tab.ER PO SCH ×2 (06:18→19:52)
[2017-07-18] MEDS: Furosemide 40 MG Tab PO SCH (06:18)
[2017-07-18] MEDS: hydrALAZINE 50 MG Tab PO SCH ×3 (06:18→20:56)
[2017-07-18 07:09] LABS: CHLORIDE,CL 96 mmol/L (98-107); SODIUM,NA 133 mmol/L (136-145)
[2017-07-18] MEDS: Levothyroxine 50 MCG Tab PO SCH (08:09)
[2017-07-18] MEDS: Omeprazole 20 MG Cap.CR PO SCH (08:19)
[2017-07-18] MEDS: Metoprolol Tartrate 25 MG Tab PO SCH ×2 (08:20→20:57)
[2017-07-18] MEDS: LORazepam 0.5 MG Tab PO SCH (08:21)
[2017-07-18] MEDS: Clopidogrel 75 MG Tab PO SCH (08:22)
[2017-07-18] MEDS: Lutein/Minerals/Vitamin C/Vitamin E Acetate Cap PO SCH ×2 (08:22→19:53)
[2017-07-18] MEDS: predniSONE 5 MG Tab PO SCH (08:23)
[2017-07-18] MEDS: Acetaminophen 650 MG Tab.ER PO SCH ×2 (08:23→20:58)
[2017-07-18] MEDS: Multivitamin Tab PO SCH (08:23)
[2017-07-18] MEDS: Linezolid 600 MG in Premix Bag 1 BAG IV SCH ×2 (08:28→20:59)
[2017-07-18] MEDS: Sodium Chloride 0.9% 10 ML Syringe FLUSH PRN ×6 (08:33→21:04)
--- NOTE | 2017-07-18 11:47 | PCM.PN ---
- General Info Date of Service: 07/18/17 Admission Dx/Problem (Free Text): Admission Diagnosis/Problem Admission Diagnosis/Problem Cellulitis Functional Status: Reports: New Symptoms (dizzyiness, nausea and headache upon awakening this morning) - Review of Systems General: Reports: Weakness, Fatigue, Malaise HEENT: Reports: Headaches (frontal), Visual Changes (says her eyes felt blurry when she was dizzy, this as resolved now) Pulmonary: Reports: No Symptoms Cardiovascular: Reports: No Symptoms Gastrointestinal: Reports: Decreased Appetite, Nausea Genitourinary: Reports: No Symptoms Musculoskeletal: Reports: Leg Pain (left) Skin: Reports: No Symptoms Neurological: Reports: Dizziness, Headache Psychiatric: Reports: Anxiety (worried about dizziness, nausea and headache this morning. Worried about wound LLE.) - Patient Data Vitals - Most Recent: Last Vital Signs Temp 100.2 F 07/18/17 07:11 Pulse 80 07/18/17 08:20 Resp 20 07/18/17 07:11 BP 168/48 H 07/18/17 08:20 Pulse Ox 94 L 07/18/17 07:11 Weight - Most Recent: 175 lb 12.8 oz I&O - Last 24 Hours: Intake & Output 07/17/17 07/18/17 07/18/17 22:59 06:59 14:59 Intake Total 200 520 Balance 200 520 Lab Results Last 24 Hours: Laboratory Results - last 24 hr 07/18/17 07/18/17 Range/Units 06:40 06:40 WBC 7.1 (4.0-10.2) K/uL RBC 3.23 L (3.77-5.09) M/uL Hgb 9.3 L (11.7-15.5) g/dL Hct 28.6 L (34.0-46.0) % MCV 88.5 (84.0-98.0) fL MCH 28.8 (28.2-33.3) pg MCHC 32.5 (31.7-36.0) g/dL RDW 14.2 H (11.2-14.1) % Plt Count 270 (150-350) K/uL Neut % (Auto) 57.7 (45.0-80.0) % Lymph % (Auto) 25.3 (10.0-50.0) % [place] % (Auto) 12.6 (2.0-14.0) % Eos % (Auto) 3.8 (0.0-5.0) % Baso % (Auto) 0.6 (0.0-2.0) % Neut # (Auto) 4.09 (1.40-7.00) K/uL Lymph # (Auto) 1.79 (0.50-3.50) K/uL [place] # (Auto) 0.89 (0.00-1.00) K/uL Eos # (Auto) 0.27 (0.00-0.50) K/uL Baso # (Auto) 0.04 (0.00-0.20) K/uL Sodium 133 L (136-145) mmol/L Potassium 4.3 (3.5-5.1) mmol/L Chloride 96 L (98-107) mmol/L Carbon Dioxide 28.3 (21.0-32.0) mmol/L BUN 39 H (7-18) mg/dL Creatinine 1.30 H (0.51-1.17) mg/dL Est Cr Clr Drug Dosing 26.92 mL/min Estimated GFR (MDRD) 39 mL/min Glucose 92 (74-106) mg/dL Calcium 8.6 (8.5-10.1) mg/dL Total Bilirubin 0.4 (0.2-1.0) mg/dL AST 17 (15-37) U/L ALT 15 (12-78) U/L Alkaline Phosphatase 58 (46-116) IU/L C-Reactive Protein < 0.2 (<=0.9) mg/dL Total Protein 6.2 L (6.4-8.2) g/dL Albumin 2.9 L (3.4-5.0) g/dL Med Orders - Current: Current Medications Acetaminophen (Tylenol Arthritis Pain) 1,300 mg PO Q12H [facility] Last Admin: 07/18/17 08:23 Dose: 1,300 mg Acetaminophen (Tylenol) 650 mg PO Q4H PRN PRN Reason: Pain Last Admin: 07/15/17 05:16 Dose: 650 mg Amlodipine Besylate (Norvasc) 5 mg PO BID@0600,1800 [facility] Last Admin: 07/18/17 06:18 Dose: 5 mg Artificial Tears (Liquitears 1.4% Ophth Soln) 0 ml EYEBOTH Q1H PRN PRN Reason: Dry Eyes Last Admin: 07/18/17 08:27 Dose: 2 drop Cholecalciferol (Vitamin D3) 2,000 units PO BEDTIME [facility] Last Admin: 07/17/17 20:15 Dose: 2,000 units Clopidogrel Bisulfate (Plavix) 75 mg PO DAILY [facility] Last Admin: 07/18/17 08:22 Dose: 75 mg Coenzyme Q10 (Coenzyme Q10) 100 mg PO BEDTIME [facility] Last Admin: 07/17/17 20:14 Dose: 100 mg Cyclobenzaprine HCl (Flexeril) 5 mg PO TID PRN PRN Reason: spasms Last Admin: 07/15/17 20:17 Dose: 5 mg Furosemide (Lasix) 40 mg PO DAILY@0600 [facility] Last Admin: 07/18/17 06:18 Dose: 40 mg Guanfacine HCl (Guanfacine) 1 mg PO BEDTIME [facility] Last Admin: 07/17/17 22:32 Dose: Not Given Hydralazine HCl (Apresoline) 100 mg PO TID@0600,1400,2000 [facility] Last Admin: 07/18/17 06:18 Dose: 100 mg Linezolid 600 mg/ Premix 300 mls @ 150 mls/hr IV Q12HR [facility] Last Admin: 07/18/17 08:28 Dose: 150 mls/hr Isosorbide Mononitrate (Imdur) 60 mg PO Q12H [facility] Last Admin: 07/18/17 06:18 Dose: 60 mg Lactobacillus Rhamnosus (Culturelle) 1 cap PO BEDTIME [facility] Last Admin: 07/17/17 20:15 Dose: 1 cap Levothyroxine Sodium (Synthroid) 50 mcg PO ACBREAKFAST [facility] Last Admin: 07/18/17 08:09 Dose: 50 mcg Lorazepam (Ativan) 0.5 mg PO DAILY [facility] Last Admin: 07/18/17 08:21 Dose: 0.5 mg Lorazepam (Ativan) 1 mg PO BEDTIME [facility] Last Admin: 07/17/17 20:16 Dose: 1 mg Lorazepam (Ativan) 0.5 mg PO Q8H PRN PRN Reason: Anxiety Last Admin: 07/16/17 18:13 Dose: 0.5 mg Losartan Potassium (Cozaar) 100 mg PO DAILY@1800 [facility] Last Admin: 07/17/17 17:30 Dose: 100 mg Metoprolol Tartrate (Lopressor) 12.5 mg PO Q12HR [facility] Last Admin: 07/18/17 08:20 Dose: 12.5 mg Multivitamins/Minerals/Vitamin C (Tab-A-Rajat) 1 tab PO DAILY [facility] Last Admin: 07/18/17 08:23 Dose: 1 tab Nitroglycerin (Nitrostat) 0.4 mg SL Q5M PRN PRN Reason: Chest Pain Omeprazole (Omeprazole) 20 mg PO DAILY [facility] Last Admin: 07/18/17 08:19 Dose: 20 mg Oxycodone HCl (Oxycodone) 5 mg PO Q6H PRN PRN Reason: Pain Prednisone (Prednisone) 5 mg PO WITHBREAKFAST [facility] Last Admin: 07/18/17 08:23 Dose: 5 mg Senna/Docusate Sodium (Senna Plus) 1 tab PO Q48H [facility] Last Admin: 07/16/17 17:36 Dose: 1 tab Senna/Docusate Sodium (Senna Plus) 1 tab PO DAILY [facility] Last Admin: 07/18/17 08:23 Dose: Not Given Sodium Chloride (Saline Flush) 10 ml FLUSH ASDIRECTED PRN PRN Reason: Keep Vein Open Last Admin: 07/18/17 10:40 Dose: 10 ml Vit C/Vit E/Zinc/Copper/Lutein (Ocuvite Lutein) 1 each PO BID [facility] Last Admin: 07/18/17 08:22 Dose: 1 each Discontinued Medications Ceftazidime (Fortaz) 1 gm IVPUSH Q8HR [facility] Last Admin: 07/15/17 08:15 Dose: 1 gm Ceftazidime (Fortaz) 1 gm IVPUSH Q12HR [facility] Last Admin: 07/16/17 08:48 Dose: 1 gm - Exam General: Alert, Oriented, Mild Distress HEENT: EOMI Neck: Supple, Trachea Midline, No JVD Lungs: Decreased Breath Sounds Cardiovascular: Regular Rate, Regular Rhythm GI/Abdominal Exam: Normal Bowel Sounds, Soft, Non-Tender, No Distention (Female) Exam: Deferred Back Exam: Normal Inspection Extremities: Leg Pain (left), Other (LLE wound is dressed) Skin: Warm, Dry Wound/Incisions: Dressing Dry and Intact Neurological: No New Focal Deficit Psy/Mental Status: Alert, Anxious (somewhat anxious about the dizziness, nausea and headache this morning) - Problem List Review Problem List Initiated/Reviewed/Updated: Yes - My Orders Last 24 Hours: My Active Orders 07/18/17 08:00 Dressing Change [Wound Care] [RC] DAILY - Plan Plan:: 07-15-17 Beth Vivas PA-C Patient was transferred from SWB status late yesterday afternoon to IP for acute onset of LLE cellulitis and wound infection at the site of the wound that had been very slowly improving during her SWB stay. Sample of the purulent drainage was obtained for C&S. She was started on IV Fortaz and Zyvox. Dressings were changed to Aquacel w/silver covered with Optifoam. Dr. Blackman was consulted at the time of the admit. Consult was placed for Dr. Maynor Bolanos to evaluate next week. 07/15/17 Yehuda Quintana MD Very difficult IV start. PICC line needed. Continue IV antibiotics. Culture pending. 07/16/2017 Ulcer to left LE prelim shows staph. Kidney function slightly declined, will recheck in the morning. On Zyvox and pharmacy consulted in regards to dosing. Patient states leg is some better, less pain noted. Patient has PICC line, patient continues to need inpatient status due to acute cellulitis in the leg and the extensive ulceration to the leg. Recheck labs in the morning. Continue with current dressing changes. Yarelis klein,DIRECTOR OF ANALYTICAL DEVELOPMENT 07-17-17 Beth Vivas PA-C Patient has been up ambulating up in the hallway, says feel good to be up. Leg a little more sore when up ambulating, but she says tolerable. Changed dressing to Alginate to open area covered by Optifoam. 07-18-17 Beth Vivas PA-C Says awakened this morning just not feeling well - dizzy, blurry vision, nausea and headache. Dizziness has mostly resolved, and along with it the blurry vision. Very little nausea now. Still some frontal headache, "pressure" like allergies. RN reported that right after first bite of lunch, after I had been in for rounds , patient threw up and c/o increased nausea. Ordered Zofran 4 mg IV Q4H prn. Will continue IP therapy at this time for this complex, elderly woman with the more long-term goal to transfer back to SWB status and ultimately progress to being able to return home with her son and [id number].
[2017-07-18] MEDS: Ondansetron 4 MG/2 ML SDV IVPUSH PRN ×2 (11:50→18:08)
[2017-07-18] MEDS: LORazepam 0.5 MG Tab PO PRN (18:07)
[2017-07-18] MEDS: Losartan 50 MG Tab PO SCH (19:53)
[2017-07-18] MEDS: guanFACINE 1 MG Tab PO SCH (20:56)
[2017-07-18] MEDS: Lactobacillus Rhamnosus GG (Probiotic) Cap PO SCH (20:58)
[2017-07-18] MEDS: LORazepam 1 MG Tab PO SCH (20:58)
[2017-07-18] MEDS: Cholecalciferol (Vitamin D3) 1,000 Unit Tab PO SCH (20:58)
[2017-07-19] MEDS: Isosorbide Mononitrate 60 MG Tab.ER PO SCH ×2 (06:14→19:26)
[2017-07-19] MEDS: Furosemide 40 MG Tab PO SCH (06:14)
[2017-07-19] MEDS: hydrALAZINE 50 MG Tab PO SCH ×3 (06:15→20:57)
[2017-07-19] MEDS: amLODIPine 5 MG Tab PO SCH ×2 (06:15→19:26)
[2017-07-19 07:23] LABS: CHLORIDE,CL 98 mmol/L (98-107); SODIUM,NA 133 mmol/L (136-145)
[2017-07-19] MEDS: Linezolid 600 MG in Premix Bag 1 BAG IV SCH ×2 (08:18→20:54)
[2017-07-19] MEDS: LORazepam 0.5 MG Tab PO SCH (08:19)
[2017-07-19] MEDS: Acetaminophen 650 MG Tab.ER PO SCH ×2 (08:19→20:56)
[2017-07-19] MEDS: Sodium Chloride 0.9% 10 ML Syringe FLUSH PRN ×5 (08:19→20:59)
[2017-07-19] MEDS: Multivitamin Tab PO SCH (08:19)
[2017-07-19] MEDS: Omeprazole 20 MG Cap.CR PO SCH (08:19)
[2017-07-19] MEDS: Lutein/Minerals/Vitamin C/Vitamin E Acetate Cap PO SCH ×2 (08:19→19:25)
[2017-07-19] MEDS: Metoprolol Tartrate 25 MG Tab PO SCH ×2 (08:20→20:55)
[2017-07-19] MEDS: predniSONE 5 MG Tab PO SCH (08:20)
[2017-07-19] MEDS: Levothyroxine 50 MCG Tab PO SCH (08:20)
[2017-07-19] MEDS: Clopidogrel 75 MG Tab PO SCH (08:27)
--- NOTE | 2017-07-19 11:10 | PCM.PN ---
- General Info Date of Service: 07/19/17 Admission Dx/Problem (Free Text): Admission Diagnosis/Problem Admission Diagnosis/Problem Cellulitis - Review of Systems General: Reports: Malaise HEENT: Reports: Sinus Congestion, Visual Changes (some blurring at times), Other (occasional sneezes) Pulmonary: Reports: No Symptoms Cardiovascular: Reports: No Symptoms Gastrointestinal: Reports: No Symptoms Genitourinary: Reports: No Symptoms Musculoskeletal: Reports: Leg Pain (left leg pain with ambulation, mild) Skin: Reports: No Symptoms Neurological: Reports: No Symptoms Psychiatric: Reports: Depression (feels down, frustrated, concerned about long hospitalization, worried about leg healing) - Patient Data Vitals - Most Recent: Last Vital Signs Temp 98.5 F 07/19/17 08:00 Pulse 74 07/19/17 08:20 Resp 17 07/19/17 08:00 BP 138/47 L 07/19/17 08:20 Pulse Ox 93 L 07/19/17 08:00 Weight - Most Recent: 175 lb 1.6 oz I&O - Last 24 Hours: Intake & Output 07/18/17 07/19/17 07/19/17 22:59 06:59 14:59 Intake Total 473 309 2213 Output Total 100 Balance 300 300 980 Lab Results Last 24 Hours: Laboratory Results - last 24 hr 07/18/17 07/19/17 07/19/17 Range/Units 17:41 06:35 06:35 WBC 6.1 (4.0-10.2) K/uL RBC 2.89 L (3.77-5.09) M/uL Hgb 8.4 L (11.7-15.5) g/dL Hct 26.1 L (34.0-46.0) % MCV 90.3 (84.0-98.0) fL MCH 29.1 (28.2-33.3) pg MCHC 32.2 (31.7-36.0) g/dL RDW 14.5 H (11.2-14.1) % Plt Count 239 (150-350) K/uL Neut % (Auto) 54.9 (45.0-80.0) % Lymph % (Auto) 26.4 (10.0-50.0) % Grand % (Auto) 14.0 (2.0-14.0) % Eos % (Auto) 4.0 (0.0-5.0) % Baso % (Auto) 0.7 (0.0-2.0) % Neut # (Auto) 3.34 (1.40-7.00) K/uL Lymph # (Auto) 1.60 (0.50-3.50) K/uL Grand # (Auto) 0.85 (0.00-1.00) K/uL Eos # (Auto) 0.24 (0.00-0.50) K/uL Baso # (Auto) 0.04 (0.00-0.20) K/uL Sodium 133 L (136-145) mmol/L Potassium 3.9 (3.5-5.1) mmol/L Chloride 98 (98-107) mmol/L Carbon Dioxide 27.1 (21.0-32.0) mmol/L BUN 32 H (7-18) mg/dL Creatinine 1.51 H (0.51-1.17) mg/dL Est Cr Clr Drug Dosing 23.17 mL/min Estimated GFR (MDRD) 33 mL/min Glucose 91 (74-106) mg/dL POC Glucose 119 H (65-110) mg/dl Calcium 8.2 L (8.5-10.1) mg/dL Total Bilirubin 0.5 (0.2-1.0) mg/dL AST 19 (15-37) U/L ALT 17 (12-78) U/L Alkaline Phosphatase 50 (46-116) IU/L C-Reactive Protein < 0.2 (<=0.9) mg/dL Total Protein 5.4 L (6.4-8.2) g/dL Albumin 2.6 L (3.4-5.0) g/dL Med Orders - Current: Current Medications Acetaminophen (Tylenol Arthritis Pain) 1,300 mg PO Q12H [facility]IK[facility] Last Admin: 07/19/17 08:19 Dose: 1,300 mg Acetaminophen (Tylenol) 650 mg PO Q4H PRN PRN Reason: Pain Last Admin: 07/15/17 05:16 Dose: 650 mg Amlodipine Besylate (Norvasc) 5 mg PO BID@0600,1800 [facility] Last Admin: 07/19/17 06:15 Dose: 5 mg Artificial Tears (Liquitears 1.4% Ophth Soln) 0 ml EYEBOTH Q1H PRN PRN Reason: Dry Eyes Last Admin: 07/18/17 08:27 Dose: 2 drop Cholecalciferol (Vitamin D3) 2,000 units PO BEDTIME [facility] Last Admin: 07/18/17 20:58 Dose: Not Given Clopidogrel Bisulfate (Plavix) 75 mg PO DAILY [facility] Last Admin: 07/19/17 08:27 Dose: Not Given Coenzyme Q10 (Coenzyme Q10) 100 mg PO BEDTIME [facility] Last Admin: 07/18/17 20:58 Dose: Not Given Cyclobenzaprine HCl (Flexeril) 5 mg PO TID PRN PRN Reason: spasms Last Admin: 07/15/17 20:17 Dose: 5 mg Furosemide (Lasix) 40 mg PO DAILY@0600 [facility] Last Admin: 07/19/17 06:14 Dose: 40 mg Guanfacine HCl (Guanfacine) 1 mg PO BEDTIME [facility] Last Admin: 07/18/17 20:56 Dose: 1 mg Hydralazine HCl (Apresoline) 100 mg PO TID@0600,1400,2000 [facility] Last Admin: 07/19/17 06:15 Dose: 100 mg Linezolid 600 mg/ Premix 300 mls @ 150 mls/hr IV Q12HR [facility] Last Admin: 07/19/17 08:18 Dose: 150 mls/hr Isosorbide Mononitrate (Imdur) 60 mg PO Q12H [facility] Last Admin: 07/19/17 06:14 Dose: 60 mg Lactobacillus Rhamnosus (Culturelle) 1 cap PO BEDTIME [facility] Last Admin: 07/18/17 20:58 Dose: Not Given Levothyroxine Sodium (Synthroid) 50 mcg PO ACBREAKFAST [facility] Last Admin: 07/19/17 08:20 Dose: 50 mcg Lorazepam (Ativan) 0.5 mg PO DAILY [facility] Last Admin: 07/19/17 08:19 Dose: 0.5 mg Lorazepam (Ativan) 1 mg PO BEDTIME [facility] Last Admin: 07/18/17 20:58 Dose: 1 mg Lorazepam (Ativan) 0.5 mg PO Q8H PRN PRN Reason: Anxiety Last Admin: 07/18/17 18:07 Dose: 0.5 mg Losartan Potassium (Cozaar) 100 mg PO DAILY@1800 [facility] Last Admin: 07/18/17 19:53 Dose: 100 mg Metoprolol Tartrate (Lopressor) 12.5 mg PO Q12HR [facility] Last Admin: 07/19/17 08:20 Dose: 12.5 mg Multivitamins/Minerals/Vitamin C (Tab-A-Rajat) 1 tab PO DAILY [facility] Last Admin: 07/19/17 08:19 Dose: 1 tab Nitroglycerin (Nitrostat) 0.4 mg SL Q5M PRN PRN Reason: Chest Pain Omeprazole (Omeprazole) 20 mg PO DAILY [facility] Last Admin: 07/19/17 08:19 Dose: 20 mg Ondansetron HCl (Zofran) 4 mg IVPUSH Q4H PRN PRN Reason: Nausea/Vomiting Last Admin: 07/18/17 18:08 Dose: 4 mg Oxycodone HCl (Oxycodone) 5 mg PO Q6H PRN PRN Reason: Pain Prednisone (Prednisone) 5 mg PO WITHBREAKFAST [facility] Last Admin: 07/19/17 08:20 Dose: 5 mg Senna/Docusate Sodium (Senna Plus) 1 tab PO Q48H [facility] Last Admin: 07/18/17 19:53 Dose: Not Given Senna/Docusate Sodium (Senna Plus) 1 tab PO DAILY [facility] Last Admin: 07/19/17 08:21 Dose: Not Given Sodium Chloride (Saline Flush) 10 ml FLUSH ASDIRECTED PRN PRN Reason: Keep Vein Open Last Admin: 07/19/17 08:36 Dose: 10 ml Vit C/Vit E/Zinc/Copper/Lutein (Ocuvite Lutein) 1 each PO BID [facility] Last Admin: 07/19/17 08:19 Dose: 1 each Discontinued Medications Ceftazidime (Fortaz) 1 gm IVPUSH Q8HR [facility] Last Admin: 07/15/17 08:15 Dose: 1 gm Ceftazidime (Fortaz) 1 gm IVPUSH Q12HR [facility] Last Admin: 07/16/17 08:48 Dose: 1 gm - Exam Quality Assessment: Central Line/PICC (R antecubital) General: Alert, Oriented HEENT: EOMI, Mucous Membr. Moist/[place] Neck: Supple, Trachea Midline, No JVD Lungs: Clear to Auscultation, Normal Respiratory Effort Cardiovascular: Regular Rate, Regular Rhythm GI/Abdominal Exam: Normal Bowel Sounds, Soft, Non-Tender, No Organomegaly, No Distention, Other (rectal hemorrhoids, good sphincter tone, small amount mod- dark brown stool in rectal vault - hematest negative) (Female) Exam: Deferred Back Exam: Normal Inspection Extremities: No Pedal Edema (to right leg), Other (left lower leg has minimal non-pitting edema) Wound/Incisions: Drainage (markedly increased drainage compared to day of IP admit, but pink granulation tissue in bed of wound), Erythema Improving ( surrounding the anterior aspect of the wound, less erythema than on IP admit) Neurological: No New Focal Deficit Psy/Mental Status: Alert, Anxious, Depressed (regarding medical condition ) - Problem List & Annotations (1) Depression SNOMED Code(s): 07083909 Code(s): F32.9 - MAJOR DEPRESSIVE DISORDER, SINGLE EPISODE, UNSPECIFIED Status: Acute Priority: Medium Current Visit: Yes Qualifiers: Depression Type: reactive depression Qualified Code(s): F32.9 - Major depressive disorder, single episode, unspecified - Problem List Review Problem List Initiated/Reviewed/Updated: Yes - My Orders Last 24 Hours: My Active Orders 07/18/17 11:44 Ondansetron [Zofran] 4 mg IVPUSH Q4H PRN 07/18/17 17:42 Blood Glucose Check, Bedside [RC] ONETIME 07/19/17 09:56 OCCULT BLOOD SCREEN [OP] Routine 07/19/17 09:57 OCCULT BLOOD, GASTRIC [OP] Routine 07/19/17 12:00 Loratadine [Claritin] 10 mg PO DAILY 07/20/17 18:00 Citalopram [Celexa] 10 mg PO DAILY - Plan Plan:: 07-15-17 Beth Vivas PA-C Patient was transferred from B status late yesterday afternoon to for acute onset of LLE cellulitis and wound infection at the site of the wound that had been very slowly improving during her [facility] stay. Sample of the purulent drainage was obtained for C&S. She was started on IV Fortaz and Zyvox. Dressings were changed to Aquacel w/silver covered with Optifoam. Dr. Blackman was consulted at the time of the admit. Consult was placed for Dr. Maynor Bolanos to evaluate next week. 07/15/17 Yehuda Quintana MD Very difficult IV start. PICC line needed. Continue IV antibiotics. Culture pending. 07/16/2017 Ulcer to left LE prelim shows staph. Kidney function slightly declined, will recheck in the morning. On Zyvox and pharmacy consulted in regards to dosing. Patient states leg is some better, less pain noted. Patient has PICC line, patient continues to need inpatient status due to acute cellulitis in the leg and the extensive ulceration to the leg. Recheck labs in the morning. Continue with current dressing changes. Yarelis klein,INDUSTRY CONSULTANT 07-17-17 Beth Vivas PA-C Patient has been up ambulating up in the hallway, says feel good to be up. Leg a little more sore when up ambulating, but she says tolerable. Changed dressing to Alginate to open area covered by Optifoam. 07-18-17 Beth Vivas PA-C Says awakened this morning just not feeling well - dizzy, blurry vision, nausea and headache. Dizziness has mostly resolved, and along with it the blurry vision. Very little nausea now. Still some frontal headache, "pressure" like allergies. RN reported that right after first bite of lunch, after I had been in for rounds , patient threw up and c/o increased nausea. Ordered Zofran 4 mg IV Q4H prn. Will continue IP therapy at this time for this complex, elderly woman with the more long-term goal to transfer back to SWB status and ultimately progress to being able to return home with her son and [id number]. 07-19-17 Beth Vivas PA-C Hgb down to 8.4 today. Rectal exam performed and hemoccult stool test came back negative, two more tests pending. Patient c/o sneezing episodes and some head/sinus congestion and occasional blurry vision. Doesn't necessarily correlate this things with administration of Zyvox. Starting po loratadine QD for symptoms. Discussed her concerns regarding slow healing of this LLE wound, says she feels she should be much farther along and she worries about the future, whether it will ever completely heal. Discussed situational depression, and she agrees to start antidepressant medication. Started just 10mg of Celexa QD. With dressing change to LLE wound the packing is saturated with purulent and some bloody drainage, and the dressing over is partially saturated - will increase dressing changes to twice daily. This complex patient will require additional days of IP care.
[2017-07-19] MEDS: Loratadine 10 MG Tab PO SCH (12:08)
[2017-07-19] MEDS: Ondansetron 4 MG/2 ML SDV IVPUSH PRN (18:01)
[2017-07-19] MEDS: Losartan 50 MG Tab PO SCH (19:25)
[2017-07-19] MEDS: LORazepam 1 MG Tab PO SCH (20:56)
[2017-07-19] MEDS: Lactobacillus Rhamnosus GG (Probiotic) Cap PO SCH (20:56)
[2017-07-19] MEDS: Cholecalciferol (Vitamin D3) 1,000 Unit Tab PO SCH (20:57)
[2017-07-19] MEDS: guanFACINE 1 MG Tab PO SCH (20:57)
[2017-07-20] MEDS: Furosemide 40 MG Tab PO SCH (06:18)
[2017-07-20] MEDS: Isosorbide Mononitrate 60 MG Tab.ER PO SCH ×2 (06:18→18:40)
[2017-07-20] MEDS: amLODIPine 5 MG Tab PO SCH ×2 (06:19→18:39)
[2017-07-20] MEDS: hydrALAZINE 50 MG Tab PO SCH ×3 (06:19→20:42)
[2017-07-20] MEDS: Acetaminophen 650 MG Tab.ER PO SCH ×2 (07:32→20:42)
[2017-07-20] MEDS: LORazepam 0.5 MG Tab PO SCH (07:33)
[2017-07-20] MEDS: Multivitamin Tab PO SCH (07:34)
[2017-07-20] MEDS: predniSONE 5 MG Tab PO SCH (07:34)
[2017-07-20] MEDS: Omeprazole 20 MG Cap.CR PO SCH (07:35)
[2017-07-20] MEDS: Loratadine 10 MG Tab PO SCH (07:35)
[2017-07-20] MEDS: Lutein/Minerals/Vitamin C/Vitamin E Acetate Cap PO SCH ×2 (07:35→18:39)
[2017-07-20] MEDS: Metoprolol Tartrate 25 MG Tab PO SCH ×2 (07:36→20:43)
[2017-07-20] MEDS: Linezolid 600 MG in Premix Bag 1 BAG IV SCH ×2 (07:37→20:45)
[2017-07-20] MEDS: Levothyroxine 50 MCG Tab PO SCH (07:48)
[2017-07-20] MEDS ORDERED: Clopidogrel 75 MG Tab PO SCH (08:00)
[2017-07-20 08:16] LABS: CHLORIDE,CL 99 mmol/L (98-107); SODIUM,NA 134 mmol/L (136-145)
[2017-07-20] MEDS: Clopidogrel 75 MG Tab PO SCH (09:08)
[2017-07-20] MEDS ORDERED: Sodium Chloride 0.9% 250 ML IV SCH (09:15)
[2017-07-20] MEDS: Sodium Chloride 0.9% 10 ML Syringe FLUSH PRN ×2 (09:53→13:58)
[2017-07-20] MEDS ORDERED: Citalopram 20 MG Tab PO SCH (18:00)
[2017-07-20] MEDS: Losartan 50 MG Tab PO SCH (18:40)
[2017-07-20] MEDS: Lactobacillus Rhamnosus GG (Probiotic) Cap PO SCH (20:42)
[2017-07-20] MEDS: guanFACINE 1 MG Tab PO SCH (20:44)
[2017-07-20] MEDS: Cholecalciferol (Vitamin D3) 1,000 Unit Tab PO SCH (20:44)
[2017-07-20] MEDS: LORazepam 1 MG Tab PO SCH (20:44)
--- NOTE | 2017-07-20 21:07 | PCM.PN ---
- General Info Date of Service: 07/20/17 Admission Dx/Problem (Free Text): Admission Diagnosis/Problem Admission Diagnosis/Problem Cellulitis Functional Status: Reports: Pain Controlled - Review of Systems General: Reports: Weakness, Appetite (decreased), Other (feels cold) HEENT: Reports: Other (pressure mid face) Pulmonary: Reports: No Symptoms Cardiovascular: Reports: No Symptoms Gastrointestinal: Reports: Decreased Appetite, Diarrhea Genitourinary: Reports: No Symptoms Musculoskeletal: Reports: Leg Pain (left) Neurological: Reports: Dizziness, Weakness Psychiatric: Reports: Depression, Anxiety - Patient Data Vitals - Most Recent: Last Vital Signs Temp 98.3 F 07/20/17 14:01 Pulse 73 07/20/17 20:43 Resp 18 07/20/17 13:57 BP 148/43 H 07/20/17 20:44 Pulse Ox 95 07/20/17 13:57 Weight - Most Recent: 177 lb 11.2 oz I&O - Last 24 Hours: Intake & Output 07/20/17 07/20/17 07/20/17 06:59 14:59 22:59 Intake Total 2800 250 Output Total 725 400 Balance 2075 -150 Lab Results Last 24 Hours: Laboratory Results - last 24 hr 07/20/17 07/20/17 07/20/17 Range/Units 06:30 06:30 06:30 WBC 6.0 (4.0-10.2) K/uL RBC 2.76 L (3.77-5.09) M/uL Hgb 7.9 L (11.7-15.5) g/dL Hct 24.6 L* (34.0-46.0) % MCV 89.1 (84.0-98.0) fL MCH 28.6 (28.2-33.3) pg MCHC 32.1 (31.7-36.0) g/dL RDW 14.0 (11.2-14.1) % Plt Count 205 (150-350) K/uL Neut % (Auto) 54.2 (45.0-80.0) % Lymph % (Auto) 28.2 (10.0-50.0) % [place] % (Auto) 11.5 (2.0-14.0) % Eos % (Auto) 5.3 H (0.0-5.0) % Baso % (Auto) 0.8 (0.0-2.0) % Neut # (Auto) 3.25 (1.40-7.00) K/uL Lymph # (Auto) 1.69 (0.50-3.50) K/uL [place] # (Auto) 0.69 (0.00-1.00) K/uL Eos # (Auto) 0.32 (0.00-0.50) K/uL Baso # (Auto) 0.05 (0.00-0.20) K/uL Sodium 134 L (136-145) mmol/L Potassium 4.1 (3.5-5.1) mmol/L Chloride 99 (98-107) mmol/L Carbon Dioxide 26.7 (21.0-32.0) mmol/L BUN 38 H (7-18) mg/dL Creatinine 1.55 H (0.51-1.17) mg/dL Est Cr Clr Drug Dosing 22.58 mL/min Estimated GFR (MDRD) 32 mL/min Glucose 83 (74-106) mg/dL Calcium 7.7 L (8.5-10.1) mg/dL Total Bilirubin 0.4 (0.2-1.0) mg/dL AST 21 (15-37) U/L ALT 23 (12-78) U/L Alkaline Phosphatase 48 (46-116) IU/L C-Reactive Protein < 0.2 (<=0.9) mg/dL Total Protein 5.2 L (6.4-8.2) g/dL Albumin 2.5 L (3.4-5.0) g/dL Blood Type A POSITIVE Gel Antibody Screen Negative Crossmatch See Detail Med Orders - Current: Current Medications Acetaminophen (Tylenol Arthritis Pain) 1,300 mg PO Q12H [facility] Last Admin: 07/20/17 20:42 Dose: 1,300 mg Acetaminophen (Tylenol) 650 mg PO Q4H PRN PRN Reason: Pain Last Admin: 07/15/17 05:16 Dose: 650 mg Amlodipine Besylate (Norvasc) 5 mg PO BID@0600,1800 [facility] Last Admin: 07/20/17 18:39 Dose: 5 mg Artificial Tears (Liquitears 1.4% Ophth Soln) 0 ml EYEBOTH Q1H PRN PRN Reason: Dry Eyes Last Admin: 07/18/17 08:27 Dose: 2 drop Cholecalciferol (Vitamin D3) 2,000 units PO BEDTIME [facility] Last Admin: 07/20/17 20:44 Dose: 2,000 units Citalopram Hydrobromide (Celexa) 20 mg PO DAILY [facility] Clopidogrel Bisulfate (Plavix) 75 mg PO DAILY [facility] Last Admin: 07/20/17 09:08 Dose: 75 mg Coenzyme Q10 (Coenzyme Q10) 100 mg PO BEDTIME [facility] Last Admin: 07/20/17 20:42 Dose: 100 mg Cyclobenzaprine HCl (Flexeril) 5 mg PO TID PRN PRN Reason: spasms Last Admin: 07/15/17 20:17 Dose: 5 mg Furosemide (Lasix) 40 mg PO DAILY@0600 [facility] Last Admin: 07/20/17 06:18 Dose: 40 mg Guanfacine HCl (Guanfacine) 1 mg PO BEDTIME [facility] Last Admin: 07/20/17 20:44 Dose: 1 mg Hydralazine HCl (Apresoline) 100 mg PO TID@0600,1400,2000 [facility] Last Admin: 07/20/17 20:42 Dose: 100 mg Linezolid 600 mg/ Premix 300 mls @ 150 mls/hr IV Q12HR [facility] Last Admin: 07/20/17 20:45 Dose: 150 mls/hr Sodium Chloride (Normal Saline) 250 mls @ 30 mls/hr IV ASDIRECTED [facility] Last Admin: 07/20/17 11:10 Dose: 30 mls/hr Isosorbide Mononitrate (Imdur) 60 mg PO Q12H [facility] Last Admin: 07/20/17 18:40 Dose: 60 mg Lactobacillus Rhamnosus (Culturelle) 1 cap PO BEDTIME [facility] Last Admin: 07/20/17 20:42 Dose: 1 cap Levothyroxine Sodium (Synthroid) 50 mcg PO ACBREAKFAST [facility] Last Admin: 07/20/17 07:48 Dose: 50 mcg Loratadine (Claritin) 10 mg PO DAILY [facility] Last Admin: 07/20/17 07:35 Dose: 10 mg Lorazepam (Ativan) 0.5 mg PO DAILY [facility] Last Admin: 07/20/17 07:33 Dose: 0.5 mg Lorazepam (Ativan) 1 mg PO BEDTIME [facility] Last Admin: 07/20/17 20:44 Dose: 1 mg Lorazepam (Ativan) 0.5 mg PO Q8H PRN PRN Reason: Anxiety Last Admin: 07/18/17 18:07 Dose: 0.5 mg Losartan Potassium (Cozaar) 100 mg PO DAILY@1800 [facility] Last Admin: 07/20/17 18:40 Dose: 100 mg Metoprolol Tartrate (Lopressor) 12.5 mg PO Q12HR [facility] Last Admin: 07/20/17 20:43 Dose: 12.5 mg Multivitamins/Minerals/Vitamin C (Tab-A-Rajat) 1 tab PO DAILY [facility] Last Admin: 07/20/17 07:34 Dose: 1 tab Nitroglycerin (Nitrostat) 0.4 mg SL Q5M PRN PRN Reason: Chest Pain Omeprazole (Omeprazole) 20 mg PO DAILY [facility] Last Admin: 07/20/17 07:35 Dose: 20 mg Ondansetron HCl (Zofran) 4 mg IVPUSH Q4H PRN PRN Reason: Nausea/Vomiting Last Admin: 07/19/17 18:01 Dose: 4 mg Oxycodone HCl (Oxycodone) 5 mg PO Q6H PRN PRN Reason: Pain Prednisone (Prednisone) 5 mg PO WITHBREAKFAST [facility] Last Admin: 07/20/17 07:34 Dose: 5 mg Senna/Docusate Sodium (Senna Plus) 1 tab PO Q48H [facility] Last Admin: 07/20/17 18:44 Dose: Not Given Senna/Docusate Sodium (Senna Plus) 1 tab PO DAILY [facility] Last Admin: 07/20/17 07:32 Dose: Not Given Sodium Chloride (Saline Flush) 10 ml FLUSH ASDIRECTED PRN PRN Reason: Keep Vein Open Last Admin: 07/20/17 13:58 Dose: 10 ml Vit C/Vit E/Zinc/Copper/Lutein (Ocuvite Lutein) 1 each PO BID [facility] Last Admin: 07/20/17 18:39 Dose: 1 each Discontinued Medications Ceftazidime (Fortaz) 1 gm IVPUSH Q8HR [facility] Last Admin: 07/15/17 08:15 Dose: 1 gm Ceftazidime (Fortaz) 1 gm IVPUSH Q12HR [facility] Last Admin: 07/16/17 08:48 Dose: 1 gm Citalopram Hydrobromide (Celexa) 10 mg PO DAILY [facility] Last Admin: 07/20/17 18:40 Dose: 10 mg Clopidogrel Bisulfate (Plavix) 75 mg PO DAILY [facility] - Exam General: Alert, Cooperative, Mild Distress HEENT: Mucous Membr. Moist/[place] Neck: Trachea Midline, No JVD Lungs: Clear to Auscultation, Normal Respiratory Effort Cardiovascular: Regular Rate, Regular Rhythm GI/Abdominal Exam: Soft, Non-Tender, No Distention (Female) Exam: Deferred Back Exam: Normal Inspection Extremities: Non-Tender, Pedal Edema (left) Skin: Ecchymosis, Other (pale) Wound/Incisions: Drainage, Erythema Improving Neurological: No New Focal Deficit Psy/Mental Status: Alert, Anxious, Depressed - Problem List & Annotations (1) Cellulitis SNOMED Code(s): 378112428 Code(s): L03.90 - CELLULITIS, UNSPECIFIED Status: Acute Priority: High Current Visit: Yes Qualifiers: Site of cellulitis: extremity Site of cellulitis of extremity: lower extremity Laterality: left Qualified Code(s): L03.116 - Cellulitis of left lower limb (2) Ulcer of left lower extremity SNOMED Code(s): 34671316 Code(s): L97.929 - NON-PRS CHRONIC ULC UNSP PRT OF L LOW LEG W UNSP SEVERITY Status: Acute Priority: High Current Visit: No Qualifiers: Non-pressure ulcer stage: with fat layer exposed Qualified Code(s): L97.922 - Non-pressure chronic ulcer of unspecified part of left lower leg with fat layer exposed (3) Ulcer of left [place] with fat layer exposed SNOMED Code(s): 547649765 Code(s): L97.822 - NON-PRS CHRONIC ULCER OTH PRT L LOW LEG W FAT LAYER EXPOSED Status: Acute Priority: High Current Visit: No (4) Varicose veins of both legs with edema SNOMED Code(s): 89288272 Code(s): I83.893 - VARICOSE VEINS OF BI LOW EXTREM W OTH COMPLICATIONS Status: Acute Priority: High Current Visit: No (5) Wound SNOMED Code(s): 112929032 Code(s): T14.90 - INJURY, UNSPECIFIED * DO NOT USE * Status: Acute Priority: High Current Visit: No Onset Date: 08/07/14 Annotation/Comment: : Multiple superficial abrasions/lacerations as above not requiring surgical repair. Tetanus booster is up to date. Wound care discussed. Neosporin dressings placed by the nurse (6) Depression SNOMED Code(s): 24848342 Code(s): F32.9 - MAJOR DEPRESSIVE DISORDER, SINGLE EPISODE, UNSPECIFIED Status: Acute Priority: Medium Current Visit: Yes Qualifiers: Depression Type: reactive depression Qualified Code(s): F32.9 - Major depressive disorder, single episode, unspecified (7) Renal insufficiency SNOMED Code(s): 236548287 Code(s): N28.9 - DISORDER OF KIDNEY AND URETER, UNSPECIFIED Status: Acute Current Visit: Yes (8) Anemia SNOMED Code(s): 072633721 Code(s): D64.9 - ANEMIA, UNSPECIFIED Status: Acute Priority: High Current Visit: No Qualifiers: Anemia type: unspecified type Qualified Code(s): D64.9 - Anemia, unspecified Annotation/Comment:: Hgb 7.2 (9) Anxiety SNOMED Code(s): 21242342 Code(s): F41.9 - ANXIETY DISORDER, UNSPECIFIED Status: Acute Priority: Medium Current Visit: No (10) COPD (chronic obstructive pulmonary disease) SNOMED Code(s): 01988838 Code(s): J44.9 - CHRONIC OBSTRUCTIVE PULMONARY DISEASE, UNSPECIFIED Status : Acute Current Visit: No (11) Comfort measures only status SNOMED Code(s): 93781536877439 Code(s): Z51.5 - ENCOUNTER FOR PALLIATIVE CARE Status: Acute Priority: Medium Current Visit: No (12) Dizziness and giddiness SNOMED Code(s): 179901232 Code(s): R42 - DIZZINESS AND GIDDINESS Status: Acute Priority: High Current Visit: No (13) HTN (hypertension) SNOMED Code(s): 05588080 Code(s): I10 - ESSENTIAL (PRIMARY) HYPERTENSION Status: Acute Priority: High Current Visit: No Qualifiers: Hypertension type: essential hypertension (14) Hematoma of left lower extremity SNOMED Code(s): 697060919 Code(s): S80.12XA - CONTUSION OF LEFT LOWER LEG, INITIAL ENCOUNTER Status: Acute Priority: High Current Visit: No Qualifiers: Encounter type: subsequent encounter Qualified Code(s): S80.12XD - Contusion of left lower leg, subsequent encounter (15) Iron deficiency anemia SNOMED Code(s): 54325389 Code(s): D50.9 - IRON DEFICIENCY ANEMIA, UNSPECIFIED Status: Acute Current Visit: No (16) Osteoarthritis SNOMED Code(s): 494187250 Code(s): M19.90 - UNSPECIFIED OSTEOARTHRITIS, UNSPECIFIED SITE Status: Acute Current Visit: No (17) Paroxysmal atrial fibrillation SNOMED Code(s): 846775145 Code(s): I48.0 - PAROXYSMAL ATRIAL FIBRILLATION Status: Acute Priority: Medium Current Visit: No (18) 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 SNOMED Code(s): 816169014 Code(s): Z95.5 - PRESENCE OF CORONARY ANGIOPLASTY IMPLANT AND GRAFT Status : Acute Priority: High Current Visit: No (19) Mixed anxiety depressive disorder SNOMED Code(s): 642671807 Code(s): F41.8 - OTHER SPECIFIED ANXIETY DISORDERS Status: Chronic Current Visit: No Annotation/Comment:: Stable by patient history with continued close observation by her regular provider - Problem List Review Problem List Initiated/Reviewed/Updated: Yes - My Orders Last 24 Hours: My Active Orders 07/20/17 09:06 Transfuse PRBC [Transfuse Red Blood Cells] [COMM] Urgent 07/20/17 09:08 Verify Patient Consent Obtain [RC] ASDIRECTED 07/20/17 09:15 Sodium Chloride 0.9% [Normal Saline] 250 ml IV ASDIRECTED 07/21/17 08:00 Citalopram [Celexa] 20 mg PO DAILY - Plan Plan:: 07-15-17 Beth Vivas PA-C Patient was transferred from B status late yesterday afternoon to for acute onset of LLE cellulitis and wound infection at the site of the wound that had been very slowly improving during her [facility] stay. Sample of the purulent drainage was obtained for C&S. She was started on IV Fortaz and Zyvox. Dressings were changed to Aquacel w/silver covered with Optifoam. Dr. Blackman was consulted at the time of the admit. Consult was placed for Dr. Maynor Bolanos to evaluate next week. 07/15/17 Sheets Lilian MENJIVAR Very difficult IV start. PICC line needed. Continue IV antibiotics. Culture pending. 07/16/2017 Ulcer to left LE prelim shows staph. Kidney function slightly declined, will recheck in the morning. On Zyvox and pharmacy consulted in regards to dosing. Patient states leg is some better, less pain noted. Patient has PICC line, patient continues to need inpatient status due to acute cellulitis in the leg and the extensive ulceration to the leg. Recheck labs in the morning. Continue with current dressing changes. Yarelis klein,[employer] 07-17-17 Beth Vivas PA-C Patient has been up ambulating up in the hallway, says feel good to be up. Leg a little more sore when up ambulating, but she says tolerable. Changed dressing to Alginate to open area covered by Optifoam. 07-18-17 Beth Vivas PA-C Says awakened this morning just not feeling well - dizzy, blurry vision, nausea and headache. Dizziness has mostly resolved, and along with it the blurry vision. Very little nausea now. Still some frontal headache, "pressure" like allergies. RN reported that right after first bite of lunch, after I had been in for rounds , patient threw up and c/o increased nausea. Ordered Zofran 4 mg IV Q4H prn. Will continue IP therapy at this time for this complex, elderly woman with the more long-term goal to transfer back to [facility] status and ultimately progress to being able to return home with her son and [id number]. 07-19-17 Beth Vivas PA-C Hgb down to 8.4 today. Rectal exam performed and hemoccult stool test came back negative, two more tests pending. Patient c/o sneezing episodes and some head/sinus congestion and occasional blurry vision. Doesn't necessarily correlate this things with administration of Zyvox. Starting po loratadine QD for symptoms. Discussed her concerns regarding slow healing of this LLE wound, says she feels she should be much farther along and she worries about the future, whether it will ever completely heal. Discussed situational depression, and she agrees to start antidepressant medication. Started just 10mg of Celexa QD. With dressing change to LLE wound the packing is saturated with purulent and some bloody drainage, and the dressing over is partially saturated - will increase dressing changes to twice daily. This complex patient will require additional days of IP care. 07/20/17 Yehuda Quintana MD Symptomatic anemia. Will transfuse today. Wound is slowly granulating in. Less redness surrounding the wound. Wound is still draining significant amount of drainage requiring minimum of BID dressing changes. Some diarrhea, nausea. Dizziness and blurring of the vision. Will order schedules eye drops for her. Needs continued inpatient status.
[2017-07-21] MEDS: hydrALAZINE 50 MG Tab PO SCH ×2 (06:23→13:30)
[2017-07-21] MEDS: Isosorbide Mononitrate 60 MG Tab.ER PO SCH ×2 (06:24→18:25)
[2017-07-21] MEDS: amLODIPine 5 MG Tab PO SCH ×2 (06:24→18:25)
[2017-07-21] MEDS: Furosemide 40 MG Tab PO SCH (06:24)
[2017-07-21] MEDS: LORazepam 0.5 MG Tab PO SCH (07:33)
[2017-07-21] MEDS: Sodium Chloride 0.9% 10 ML Syringe FLUSH PRN ×5 (07:34→13:47)
[2017-07-21] MEDS: Ondansetron 4 MG/2 ML SDV IVPUSH PRN ×3 (07:34→18:27)
[2017-07-21] MEDS ORDERED: Citalopram 20 MG Tab PO SCH (08:00)
[2017-07-21] MEDS: Linezolid 600 MG in Premix Bag 1 BAG IV SCH (08:47)
[2017-07-21] MEDS: predniSONE 5 MG Tab PO SCH (09:02)
[2017-07-21] MEDS: Clopidogrel 75 MG Tab PO SCH (09:03)
[2017-07-21] MEDS: Omeprazole 20 MG Cap.CR PO SCH (09:05)
[2017-07-21] MEDS: Multivitamin Tab PO SCH (09:05)
[2017-07-21] MEDS: Acetaminophen 650 MG Tab.ER PO SCH (09:06)
[2017-07-21] MEDS: Loratadine 10 MG Tab PO SCH (09:08)
[2017-07-21] MEDS: Levothyroxine 50 MCG Tab PO SCH (09:09)
[2017-07-21] MEDS: Lutein/Minerals/Vitamin C/Vitamin E Acetate Cap PO SCH ×2 (09:09→18:25)
[2017-07-21] MEDS: Polyvinyl Alcohol 1.4% Ophth Soln 15 ML Bottle EYEBOTH SCH ×3 (09:10→18:25)
[2017-07-21] MEDS: Metoprolol Tartrate 25 MG Tab PO SCH (10:22)
[2017-07-21] MEDS: Acetaminophen 325 MG Tab PO PRN (13:31)
[2017-07-21 15:57] VITALS: BP 158/60
--- NOTE | 2017-07-21 17:19 | PCM.PN ---
- General Info Date of Service: 07/21/17 Admission Dx/Problem (Free Text): Admission Diagnosis/Problem Admission Diagnosis/Problem Cellulitis Functional Status: Reports: Pain Controlled - Review of Systems General: Reports: Other (nauseated) HEENT: Reports: Other (blurred vision) Pulmonary: Reports: No Symptoms Cardiovascular: Reports: No Symptoms Gastrointestinal: Reports: Decreased Appetite, Diarrhea Genitourinary: Reports: No Symptoms Musculoskeletal: Reports: No Symptoms Skin: Reports: No Symptoms Neurological: Reports: Weakness Psychiatric: Reports: Depression, Anxiety - Patient Data Vitals - Most Recent: Last Vital Signs Temp 98.2 F 07/21/17 15:56 Pulse 71 07/21/17 15:56 Resp 18 07/21/17 15:56 BP 158/60 H 07/21/17 15:56 Pulse Ox 88 L 07/21/17 15:56 Weight - Most Recent: 178 lb 9.6 oz I&O - Last 24 Hours: Intake & Output 07/21/17 07/21/17 07/21/17 06:59 14:59 22:59 Intake Total 665 Output Total 825 300 Balance -160 -300 Lab Results Last 24 Hours: Laboratory Results - last 24 hr 07/21/17 07/21/17 Range/Units 07:10 07:10 WBC 6.4 (4.0-10.2) K/uL RBC 3.31 L (3.77-5.09) M/uL Hgb 9.9 L D (11.7-15.5) g/dL Hct 29.2 L (34.0-46.0) % MCV 88.2 (84.0-98.0) fL MCH 29.9 (28.2-33.3) pg MCHC 33.9 (31.7-36.0) g/dL RDW 13.9 (11.2-14.1) % Plt Count 222 (150-350) K/uL Neut % (Auto) 56.5 (45.0-80.0) % Lymph % (Auto) 25.8 (10.0-50.0) % [place] % (Auto) 12.7 (2.0-14.0) % Eos % (Auto) 4.1 (0.0-5.0) % Baso % (Auto) 0.9 (0.0-2.0) % Neut # (Auto) 3.62 (1.40-7.00) K/uL Lymph # (Auto) 1.65 (0.50-3.50) K/uL [place] # (Auto) 0.81 (0.00-1.00) K/uL Eos # (Auto) 0.26 (0.00-0.50) K/uL Baso # (Auto) 0.06 (0.00-0.20) K/uL ESR 20 (0-42) mm/hr Sodium 133 L (136-145) mmol/L Potassium 4.2 (3.5-5.1) mmol/L Chloride 97 L (98-107) mmol/L Carbon Dioxide 28.5 (21.0-32.0) mmol/L BUN 34 H (7-18) mg/dL Creatinine 1.35 H (0.51-1.17) mg/dL Est Cr Clr Drug Dosing 25.92 mL/min Estimated GFR (MDRD) 37 mL/min Glucose 90 (74-106) mg/dL Calcium 8.5 (8.5-10.1) mg/dL Total Bilirubin 0.6 (0.2-1.0) mg/dL AST 20 (15-37) U/L ALT 22 (12-78) U/L Alkaline Phosphatase 50 (46-116) IU/L Total Protein 5.8 L (6.4-8.2) g/dL Albumin 2.7 L (3.4-5.0) g/dL Med Orders - Current: Current Medications Acetaminophen (Tylenol Arthritis Pain) 1,300 mg PO Q12H [facility] Last Admin: 07/21/17 09:06 Dose: 1,300 mg Acetaminophen (Tylenol) 650 mg PO Q4H PRN PRN Reason: Pain Last Admin: 07/21/17 13:31 Dose: 650 mg Amlodipine Besylate (Norvasc) 5 mg PO BID@0600,1800 [facility] Last Admin: 07/21/17 06:24 Dose: 5 mg Artificial Tears (Liquitears 1.4% Ophth Soln) 0 ml EYEBOTH Q1H PRN PRN Reason: Dry Eyes Last Admin: 07/18/17 08:27 Dose: 2 drop Artificial Tears (Liquitears 1.4% Ophth Soln) 0 ml EYEBOTH TID [facility] Last Admin: 07/21/17 11:12 Dose: 2 drop Cholecalciferol (Vitamin D3) 2,000 units PO BEDTIME [facility] Last Admin: 07/20/17 20:44 Dose: 2,000 units Citalopram Hydrobromide (Celexa) 20 mg PO DAILY [facility] Last Admin: 07/21/17 09:04 Dose: 20 mg Clopidogrel Bisulfate (Plavix) 75 mg PO DAILY [facility] Last Admin: 07/21/17 09:03 Dose: 75 mg Coenzyme Q10 (Coenzyme Q10) 100 mg PO BEDTIME [facility] Last Admin: 07/20/17 20:42 Dose: 100 mg Cyclobenzaprine HCl (Flexeril) 5 mg PO TID PRN PRN Reason: spasms Last Admin: 07/15/17 20:17 Dose: 5 mg Furosemide (Lasix) 40 mg PO DAILY@0600 [facility] Last Admin: 07/21/17 06:24 Dose: 40 mg Guanfacine HCl (Guanfacine) 1 mg PO BEDTIME [facility] Last Admin: 07/20/17 20:44 Dose: 1 mg Hydralazine HCl (Apresoline) 100 mg PO TID@0600,1400,2000 [facility] Last Admin: 07/21/17 13:30 Dose: 100 mg Sodium Chloride (Normal Saline) 250 mls @ 30 mls/hr IV ASDIRECTED [facility] Last Admin: 07/20/17 11:10 Dose: 30 mls/hr Isosorbide Mononitrate (Imdur) 60 mg PO Q12H [facility] Last Admin: 07/21/17 06:24 Dose: 60 mg Lactobacillus Rhamnosus (Culturelle) 1 cap PO BEDTIME [facility] Last Admin: 07/20/17 20:42 Dose: 1 cap Levothyroxine Sodium (Synthroid) 50 mcg PO ACBREAKFAST [facility] Last Admin: 07/21/17 09:09 Dose: 50 mcg Loratadine (Claritin) 10 mg PO DAILY [facility] Last Admin: 07/21/17 09:08 Dose: 10 mg Lorazepam (Ativan) 0.5 mg PO DAILY [facility] Last Admin: 07/21/17 07:33 Dose: 0.5 mg Lorazepam (Ativan) 1 mg PO BEDTIME [facility] Last Admin: 07/20/17 20:44 Dose: 1 mg Lorazepam (Ativan) 0.5 mg PO Q8H PRN PRN Reason: Anxiety Last Admin: 07/18/17 18:07 Dose: 0.5 mg Losartan Potassium (Cozaar) 100 mg PO DAILY@1800 [facility] Last Admin: 07/20/17 18:40 Dose: 100 mg Metoprolol Tartrate (Lopressor) 12.5 mg PO Q12HR [facility] Last Admin: 07/21/17 10:22 Dose: Not Given Multivitamins/Minerals/Vitamin C (Tab-A-Rajat) 1 tab PO DAILY [facility] Last Admin: 07/21/17 09:05 Dose: 1 tab Nitroglycerin (Nitrostat) 0.4 mg SL Q5M PRN PRN Reason: Chest Pain Omeprazole (Omeprazole) 20 mg PO DAILY [facility] Last Admin: 07/21/17 09:05 Dose: 20 mg Ondansetron HCl (Zofran) 4 mg IVPUSH Q4H PRN PRN Reason: Nausea/Vomiting Last Admin: 07/21/17 13:37 Dose: 4 mg Oxycodone HCl (Oxycodone) 5 mg PO Q6H PRN PRN Reason: Pain Prednisone (Prednisone) 5 mg PO WITHBREAKFAST [facility] Last Admin: 07/21/17 09:02 Dose: 5 mg Senna/Docusate Sodium (Senna Plus) 1 tab PO Q48H [facility] Last Admin: 07/20/17 18:44 Dose: Not Given Senna/Docusate Sodium (Senna Plus) 1 tab PO DAILY [facility] Last Admin: 07/21/17 09:07 Dose: 1 tab Sodium Chloride (Saline Flush) 10 ml FLUSH ASDIRECTED PRN PRN Reason: Keep Vein Open Last Admin: 07/21/17 13:47 Dose: 10 ml Vit C/Vit E/Zinc/Copper/Lutein (Ocuvite Lutein) 1 each PO BID [facility] Last Admin: 07/21/17 09:09 Dose: 1 each Discontinued Medications Ceftazidime (Fortaz) 1 gm IVPUSH Q8HR [facility] Last Admin: 07/15/17 08:15 Dose: 1 gm Ceftazidime (Fortaz) 1 gm IVPUSH Q12HR [facility] Last Admin: 07/16/17 08:48 Dose: 1 gm Citalopram Hydrobromide (Celexa) 10 mg PO DAILY [facility] Last Admin: 07/20/17 18:40 Dose: 10 mg Clopidogrel Bisulfate (Plavix) 75 mg PO DAILY [facility] Linezolid 600 mg/ Premix 300 mls @ 150 mls/hr IV Q12HR [facility] Last Admin: 07/21/17 08:47 Dose: 150 mls/hr - Exam Quality Assessment: Central Line/PICC General: Alert, Cooperative, Mild Distress HEENT: Mucous Membr. Moist/[place] Neck: Trachea Midline, No JVD Lungs: Clear to Auscultation, Normal Respiratory Effort Cardiovascular: Regular Rate, Regular Rhythm GI/Abdominal Exam: Soft, Non-Tender, No Distention (Female) Exam: Deferred Back Exam: Normal Inspection Extremities: Normal Inspection, Non-Tender, No Pedal Edema Skin: Warm, Dry, Intact Wound/Incisions: Drainage, Erythema Improving Neurological: No New Focal Deficit, Other (generalized weakness) Psy/Mental Status: Alert, Anxious, Depressed - Problem List & Annotations (1) Cellulitis SNOMED Code(s): 725294540 Code(s): L03.90 - CELLULITIS, UNSPECIFIED Status: Acute Priority: High Current Visit: Yes Qualifiers: Site of cellulitis: extremity Site of cellulitis of extremity: lower extremity Laterality: left Qualified Code(s): L03.116 - Cellulitis of left lower limb (2) Ulcer of left lower extremity SNOMED Code(s): 20034014 Code(s): L97.929 - NON-PRS CHRONIC ULC UNSP PRT OF L LOW LEG W UNSP SEVERITY Status: Acute Priority: High Current Visit: No Qualifiers: Non-pressure ulcer stage: with fat layer exposed Qualified Code(s): L97.922 - Non-pressure chronic ulcer of unspecified part of left lower leg with fat layer exposed (3) Ulcer of left [place] with fat layer exposed SNOMED Code(s): 294039503 Code(s): L97.822 - NON-PRS CHRONIC ULCER OTH PRT L LOW LEG W FAT LAYER EXPOSED Status: Acute Priority: High Current Visit: No (4) Varicose veins of both legs with edema SNOMED Code(s): 01132963 Code(s): I83.893 - VARICOSE VEINS OF BI LOW EXTREM W OTH COMPLICATIONS Status: Acute Priority: High Current Visit: No (5) Wound SNOMED Code(s): 115171710 Code(s): T14.90 - INJURY, UNSPECIFIED * DO NOT USE * Status: Acute Priority: High Current Visit: No Onset Date: 08/07/14 Annotation/Comment: : Multiple superficial abrasions/lacerations as above not requiring surgical repair. Tetanus booster is up to date. Wound care discussed. Neosporin dressings placed by the nurse (6) Depression SNOMED Code(s): 00634030 Code(s): F32.9 - MAJOR DEPRESSIVE DISORDER, SINGLE EPISODE, UNSPECIFIED Status: Acute Priority: Medium Current Visit: Yes Qualifiers: Depression Type: reactive depression Qualified Code(s): F32.9 - Major depressive disorder, single episode, unspecified (7) Renal insufficiency SNOMED Code(s): 701654290 Code(s): N28.9 - DISORDER OF KIDNEY AND URETER, UNSPECIFIED Status: Acute Current Visit: Yes (8) Anemia SNOMED Code(s): 419916123 Code(s): D64.9 - ANEMIA, UNSPECIFIED Status: Acute Priority: High Current Visit: No Qualifiers: Anemia type: unspecified type Qualified Code(s): D64.9 - Anemia, unspecified Annotation/Comment:: Hgb 7.2 (9) Anxiety SNOMED Code(s): 89401409 Code(s): F41.9 - ANXIETY DISORDER, UNSPECIFIED Status: Acute Priority: Medium Current Visit: No (10) COPD (chronic obstructive pulmonary disease) SNOMED Code(s): 46862843 Code(s): J44.9 - CHRONIC OBSTRUCTIVE PULMONARY DISEASE, UNSPECIFIED Status : Acute Current Visit: No (11) Comfort measures only status SNOMED Code(s): 62666758496159 Code(s): Z51.5 - ENCOUNTER FOR PALLIATIVE CARE Status: Acute Priority: Medium Current Visit: No (12) Dizziness and giddiness SNOMED Code(s): 440035364 Code(s): R42 - DIZZINESS AND GIDDINESS Status: Acute Priority: High Current Visit: No (13) HTN (hypertension) SNOMED Code(s): 66911590 Code(s): I10 - ESSENTIAL (PRIMARY) HYPERTENSION Status: Acute Priority: High Current Visit: No Qualifiers: Hypertension type: essential hypertension (14) Hematoma of left lower extremity SNOMED Code(s): 965159533 Code(s): S80.12XA - CONTUSION OF LEFT LOWER LEG, INITIAL ENCOUNTER Status: Acute Priority: High Current Visit: No Qualifiers: Encounter type: subsequent encounter Qualified Code(s): S80.12XD - Contusion of left lower leg, subsequent encounter (15) Iron deficiency anemia SNOMED Code(s): 85468413 Code(s): D50.9 - IRON DEFICIENCY ANEMIA, UNSPECIFIED Status: Acute Current Visit: No (16) Osteoarthritis SNOMED Code(s): 926330572 Code(s): M19.90 - UNSPECIFIED OSTEOARTHRITIS, UNSPECIFIED SITE Status: Acute Current Visit: No (17) Paroxysmal atrial fibrillation SNOMED Code(s): 865596047 Code(s): I48.0 - PAROXYSMAL ATRIAL FIBRILLATION Status: Acute Priority: Medium Current Visit: No (18) 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 SNOMED Code(s): 380427461 Code(s): Z95.5 - PRESENCE OF CORONARY ANGIOPLASTY IMPLANT AND GRAFT Status : Acute Priority: High Current Visit: No (19) Mixed anxiety depressive disorder SNOMED Code(s): 025310817 Code(s): F41.8 - OTHER SPECIFIED ANXIETY DISORDERS Status: Chronic Current Visit: No Annotation/Comment:: Stable by patient history with continued close observation by her regular provider - Problem List Review Problem List Initiated/Reviewed/Updated: Yes - My Orders Last 24 Hours: My Active Orders 07/21/17 08:00 Citalopram [Celexa] 20 mg PO DAILY Polyvinyl Alcohol [LiquiTears 1.4% Ophth Soln] 0 ml EYEBOTH TID 07/21/17 16:43 Ready for Discharge [RC] PER UNIT ROUTINE - Plan Plan:: 07-15-17 Beth Vivas PA-C Patient was transferred from B status late yesterday afternoon to for acute onset of LLE cellulitis and wound infection at the site of the wound that had been very slowly improving during her [facility] stay. Sample of the purulent drainage was obtained for C&S. She was started on IV Fortaz and Zyvox. Dressings were changed to Aquacel w/silver covered with Optifoam. Dr. Blackman was consulted at the time of the admit. Consult was placed for Dr. Maynor Bolanos to evaluate next week. 07/15/17 Yehuda Quintana MD Very difficult IV start. PICC line needed. Continue IV antibiotics. Culture pending. 07/16/2017 Ulcer to left LE prelim shows staph. Kidney function slightly declined, will recheck in the morning. On Zyvox and pharmacy consulted in regards to dosing. Patient states leg is some better, less pain noted. Patient has PICC line, patient continues to need inpatient status due to acute cellulitis in the leg and the extensive ulceration to the leg. Recheck labs in the morning. Continue with current dressing changes. Yarelis klein,[employer] 07-17-17 Beth Vivas PA-C Patient has been up ambulating up in the hallway, says feel good to be up. Leg a little more sore when up ambulating, but she says tolerable. Changed dressing to Alginate to open area covered by Optifoam. 07-18-17 Beth Vivas PA-C Says awakened this morning just not feeling well - dizzy, blurry vision, nausea and headache. Dizziness has mostly resolved, and along with it the blurry vision. Very little nausea now. Still some frontal headache, "pressure" like allergies. RN reported that right after first bite of lunch, after I had been in for rounds , patient threw up and c/o increased nausea. Ordered Zofran 4 mg IV Q4H prn. Will continue IP therapy at this time for this complex, elderly woman with the more long-term goal to transfer back to [facility] status and ultimately progress to being able to return home with her son and [id number]. 07-19-17 Beth Vivas PA-C Hgb down to 8.4 today. Rectal exam performed and hemoccult stool test came back negative, two more tests pending. Patient c/o sneezing episodes and some head/sinus congestion and occasional blurry vision. Doesn't necessarily correlate this things with administration of Zyvox. Starting po loratadine QD for symptoms. Discussed her concerns regarding slow healing of this LLE wound, says she feels she should be much farther along and she worries about the future, whether it will ever completely heal. Discussed situational depression, and she agrees to start antidepressant medication. Started just 10mg of Celexa QD. With dressing change to LLE wound the packing is saturated with purulent and some bloody drainage, and the dressing over is partially saturated - will increase dressing changes to twice daily. This complex patient will require additional days of IP care. 07/20/17 Yehuda Quintana MD Symptomatic anemia. Will transfuse today. Wound is slowly granulating in. Less redness surrounding the wound. Wound is still draining significant amount of drainage requiring minimum of BID dressing changes. Some diarrhea, nausea. Dizziness and blurring of the vision. Will order schedules eye drops for her. Needs continued inpatient status. 07/21/17 Yehuda Quintana MD Feeling nauseated, blah, blurred vision. Probably side effects to IV antibiotics. "Wound is improving. Discussed discharge planning with her and [id number] Courtney. Still monitoring and adjusting blood pressure medications. Stable for transfer into swing bed status to continue IV zofran, application of complex dressing with prescription medication and aseptic technique requiring minimum of BID dressing changes due to copious drainage, vital sign monitoring for labile/history malignant hypertension, monitoring of psychiatric condition of depression and anxiety and adjustment of medications, care and maintenance of central line (PICC), and PT-OT for strengthening.
--- NOTE | 2017-07-21 17:29 | PCM.DCSUM1 ---
Discharge Summary - Discharge Data Discharge Date: 07/21/17 Discharge Disposition: DC/Tfer W/I Hosp To [facility] Condition: Good - Discharge Diagnosis/Problem(s) (1) Cellulitis SNOMED Code(s): 192816002 ICD Code: L03.90 - CELLULITIS, UNSPECIFIED Status: Acute Priority: High Current Visit: Yes Qualifiers: Site of cellulitis: extremity Site of cellulitis of extremity: lower extremity Laterality: left Qualified Code(s): L03.116 - Cellulitis of left lower limb (2) Ulcer of left lower extremity SNOMED Code(s): 21172355 ICD Code: L97.929 - NON-PRS CHRONIC ULC UNSP PRT OF L LOW LEG W UNSP SEVERITY Status: Acute Priority: High Current Visit: No Qualifiers: Non-pressure ulcer stage: with fat layer exposed Qualified Code(s): L97.922 - Non-pressure chronic ulcer of unspecified part of left lower leg with fat layer exposed (3) Ulcer of left [place] with fat layer exposed SNOMED Code(s): 169705186 ICD Code: L97.822 - NON-PRS CHRONIC ULCER OTH PRT L LOW LEG W FAT LAYER EXPOSED Status: Acute Priority: High Current Visit: No (4) Varicose veins of both legs with edema SNOMED Code(s): 89119522 ICD Code: I83.893 - VARICOSE VEINS OF BI LOW EXTREM W OTH COMPLICATIONS Status: Acute Priority: High Current Visit: No (5) Wound SNOMED Code(s): 504195576 ICD Code: T14.90 - INJURY, UNSPECIFIED * DO NOT USE * Status: Acute Priority: High Current Visit: No Onset Date: 08/07/14 Problem Details: Multiple superficial abrasions/lacerations as above not requiring surgical repair. Tetanus booster is up to date. Wound care discussed. Neosporin dressings placed by the nurse (6) Depression SNOMED Code(s): 36089703 ICD Code: F32.9 - MAJOR DEPRESSIVE DISORDER, SINGLE EPISODE, UNSPECIFIED Status: Acute Priority: Medium Current Visit: Yes Qualifiers: Depression Type: reactive depression Qualified Code(s): F32.9 - Major depressive disorder, single episode, unspecified (7) Renal insufficiency SNOMED Code(s): 708264132 ICD Code: N28.9 - DISORDER OF KIDNEY AND URETER, UNSPECIFIED Status: Acute Current Visit: Yes (8) Anemia SNOMED Code(s): 417195688 ICD Code: D64.9 - ANEMIA, UNSPECIFIED Status: Acute Priority: High Current Visit: No Problem Details: Hgb 7.2 Qualifiers: Anemia type: unspecified type Qualified Code(s): D64.9 - Anemia, unspecified (9) Anxiety SNOMED Code(s): 09571758 ICD Code: F41.9 - ANXIETY DISORDER, UNSPECIFIED Status: Acute Priority: Medium Current Visit: No (10) COPD (chronic obstructive pulmonary disease) SNOMED Code(s): 04013902 ICD Code: J44.9 - CHRONIC OBSTRUCTIVE PULMONARY DISEASE, UNSPECIFIED Status : Acute Current Visit: No (11) Comfort measures only status SNOMED Code(s): 93318261303354 ICD Code: Z51.5 - ENCOUNTER FOR PALLIATIVE CARE Status: Acute Priority: Medium Current Visit: No (12) Dizziness and giddiness SNOMED Code(s): 701057285 ICD Code: R42 - DIZZINESS AND GIDDINESS Status: Acute Priority: High Current Visit: No (13) HTN (hypertension) SNOMED Code(s): 41790627 ICD Code: I10 - ESSENTIAL (PRIMARY) HYPERTENSION Status: Acute Priority: High Current Visit: No Qualifiers: Hypertension type: essential hypertension (14) Hematoma of left lower extremity SNOMED Code(s): 468312594 ICD Code: S80.12XA - CONTUSION OF LEFT LOWER LEG, INITIAL ENCOUNTER Status : Acute Priority: High Current Visit: No Qualifiers: Encounter type: subsequent encounter Qualified Code(s): S80.12XD - Contusion of left lower leg, subsequent encounter (15) Iron deficiency anemia SNOMED Code(s): 57951390 ICD Code: D50.9 - IRON DEFICIENCY ANEMIA, UNSPECIFIED Status: Acute Current Visit: No (16) Osteoarthritis SNOMED Code(s): 136436882 ICD Code: M19.90 - UNSPECIFIED OSTEOARTHRITIS, UNSPECIFIED SITE Status: Acute Current Visit: No (17) Paroxysmal atrial fibrillation SNOMED Code(s): 595012907 ICD Code: I48.0 - PAROXYSMAL ATRIAL FIBRILLATION Status: Acute Priority: Medium Current Visit: No (18) 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 SNOMED Code(s): 578333207 ICD Code: Z95.5 - PRESENCE OF CORONARY ANGIOPLASTY IMPLANT AND GRAFT Status : Acute Priority: High Current Visit: No (19) Mixed anxiety depressive disorder SNOMED Code(s): 866761160 ICD Code: F41.8 - OTHER SPECIFIED ANXIETY DISORDERS Status: Chronic Current Visit: No Problem Details: Stable by patient history with continued close observation by her regular provider - Patient Summary/Data Consults: Consultations 07/14/17 17:22 Consult to Case Management [CONS] Routine OT Evaluation and Treatment [CONS] Routine PT Evaluation and Treatment [CONS] Routine 07/14/17 17:39 Consult to Physician [CONS] Routine - Discharge Plan Home Medications: Home Meds Levothyroxine Sodium [Unithroid] 50 mcg PO DAILY 07/15/16 [History] Multivitamin [Daily Rajat] 1 tab PO DAILY 07/15/16 [History] Nitroglycerin [Nitrostat] 0.4 mg SL Q5M PRN 07/15/16 [History] Cholecalciferol (Vitamin D3) [Vitamin D3] 2,000 unit PO BEDTIME 09/30/16 [ History] Acetaminophen [Tylenol Arthritis] 1,300 mg PO BID 12/05/16 [History] L.acidoph,Paracasei, B.lactis [Probiotic] 1 each PO BEDTIME 12/05/16 [History] Omeprazole Magnesium [Prilosec Otc] 20 mg PO DAILY 12/05/16 [History] Clopidogrel [Plavix] 75 mg PO DAILY 06/10/17 [History] Cyclobenzaprine HCl 5 mg PO TID PRN 06/10/17 [History] LORazepam 1 mg PO BEDTIME 06/10/17 [History] LORazepam [Ativan] 0.5 mg PO DAILY 06/10/17 [History] Losartan [Cozaar] 100 mg PO DAILY@1800 06/10/17 [History] Lutein Extract/Zeaxanthin Ext [Lutein 15 MG Softgel] 1 cap PO BID 06/10/17 [ History] Prednisone [IJP: Prednisone] 5 mg PO DAILY 06/10/17 [History] Sennosides/Docusate Sodium [Senna-S] 1 each PO DAILY 06/10/17 [History] Ubidecarenone [Coenzyme Q10] 100 mg PO BEDTIME 06/10/17 [History] hydrALAZINE [Apresoline] 100 mg PO TID@0600,1400,199906/10/17 [History] oxyCODONE 5 mg PO Q6HR PRN 06/10/17 [History] Acetaminophen [Tylenol] 650 mg PO Q4HR PRN 07/14/17 [History] Dextran 70/Hypromellose [Artificial Tears] 2 ml OP Q1H PRN 07/14/17 [History] Furosemide 40 mg PO DAILY@0600 07/14/17 [History] Isosorbide Mononitrate [Imdur] 60 mg PO BID@0800,199907/14/17 [History] LORazepam [Ativan] 0.5 mg PO Q8HR PRN 07/14/17 [History] Metoprolol Tartrate 12.5 mg PO Q12HR@0800,199907/14/17 [History] Sennosides/Docusate Sodium [Senna Plus Tablet] 1 tab PO Q48H 07/14/17 [History] amLODIPine Besylate [Amlodipine Besylate] 5 mg PO 0600,1800 07/14/17 [History] guanFACINE 1 mg PO BEDTIME 07/14/17 [History] Patient Handouts: Linezolid injection - Discharge Summary/Plan Comment DC Time >30 min.: No Discharge Summary/Plan Comment: 87 year old white female labile/history of malignant hypertension, large wound ( [id number]) left lower extremity from traumatic hematoma became infected with MRSA. She was hospitalized for IV antibiotics, wound care and monitor of blood pressure. She improved except she did experience side effects from IV antibiotics of anorexia, nausea, vomiting, diarrhea, blurred vision. Blood pressure medications continued to need adjustment. Her wound did improve and she was stable to transfer into swing bed for continued monitoring and adjusting blood pressure medications, scheduled IV zofran, application of complex dressing with prescription medication and aseptic technique with minimum of BID dressing changes due to copious drainage, vital signs monitoring due to labile/ malignant hypertension, monitor of psychiatric condition of depression and anxiety and monitor adjustments of psychiatric medications, care and maintenance of a central line (PICC) due difficult/ impossible IV access, and PT-OT consultation for strengthening. - Patient Data Vitals - Most Recent: Last Vital Signs Temp 98.2 F 07/21/17 15:56 Pulse 71 07/21/17 15:56 Resp 18 07/21/17 15:56 BP 158/60 H 07/21/17 15:56 Pulse Ox 88 L 07/21/17 15:56 Weight - Most Recent: 178 lb 9.6 oz I&O - Last 24 hours: Intake & Output 07/21/17 07/21/17 07/21/17 06:59 14:59 22:59 Intake Total 665 Output Total 825 300 Balance -160 -300 Lab Results - Last 24 hrs: Laboratory Results - last 24 hr 07/21/17 07/21/17 Range/Units 07:10 07:10 WBC 6.4 (4.0-10.2) K/uL RBC 3.31 L (3.77-5.09) M/uL Hgb 9.9 L D (11.7-15.5) g/dL Hct 29.2 L (34.0-46.0) % MCV 88.2 (84.0-98.0) fL MCH 29.9 (28.2-33.3) pg MCHC 33.9 (31.7-36.0) g/dL RDW 13.9 (11.2-14.1) % Plt Count 222 (150-350) K/uL Neut % (Auto) 56.5 (45.0-80.0) % Lymph % (Auto) 25.8 (10.0-50.0) % [place] % (Auto) 12.7 (2.0-14.0) % Eos % (Auto) 4.1 (0.0-5.0) % Baso % (Auto) 0.9 (0.0-2.0) % Neut # (Auto) 3.62 (1.40-7.00) K/uL Lymph # (Auto) 1.65 (0.50-3.50) K/uL [place] # (Auto) 0.81 (0.00-1.00) K/uL Eos # (Auto) 0.26 (0.00-0.50) K/uL Baso # (Auto) 0.06 (0.00-0.20) K/uL ESR 20 (0-42) mm/hr Sodium 133 L (136-145) mmol/L Potassium 4.2 (3.5-5.1) mmol/L Chloride 97 L (98-107) mmol/L Carbon Dioxide 28.5 (21.0-32.0) mmol/L BUN 34 H (7-18) mg/dL Creatinine 1.35 H (0.51-1.17) mg/dL Est Cr Clr Drug Dosing 25.92 mL/min Estimated GFR (MDRD) 37 mL/min Glucose 90 (74-106) mg/dL Calcium 8.5 (8.5-10.1) mg/dL Total Bilirubin 0.6 (0.2-1.0) mg/dL AST 20 (15-37) U/L ALT 22 (12-78) U/L Alkaline Phosphatase 50 (46-116) IU/L Total Protein 5.8 L (6.4-8.2) g/dL Albumin 2.7 L (3.4-5.0) g/dL Med Orders - Current: Current Medications Acetaminophen (Tylenol Arthritis Pain) 1,300 mg PO Q12H [facility] Last Admin: 07/21/17 09:06 Dose: 1,300 mg Acetaminophen (Tylenol) 650 mg PO Q4H PRN PRN Reason: Pain Last Admin: 07/21/17 13:31 Dose: 650 mg Amlodipine Besylate (Norvasc) 5 mg PO BID@0600,1800 [facility] Last Admin: 07/21/17 06:24 Dose: 5 mg Artificial Tears (Liquitears 1.4% Ophth Soln) 0 ml EYEBOTH Q1H PRN PRN Reason: Dry Eyes Last Admin: 07/18/17 08:27 Dose: 2 drop Artificial Tears (Liquitears 1.4% Ophth Soln) 0 ml EYEBOTH TID [facility] Last Admin: 07/21/17 11:12 Dose: 2 drop Cholecalciferol (Vitamin D3) 2,000 units PO BEDTIME [facility] Last Admin: 07/20/17 20:44 Dose: 2,000 units Citalopram Hydrobromide (Celexa) 20 mg PO DAILY [facility] Last Admin: 07/21/17 09:04 Dose: 20 mg Clopidogrel Bisulfate (Plavix) 75 mg PO DAILY [facility] Last Admin: 07/21/17 09:03 Dose: 75 mg Coenzyme Q10 (Coenzyme Q10) 100 mg PO BEDTIME [facility] Last Admin: 07/20/17 20:42 Dose: 100 mg Cyclobenzaprine HCl (Flexeril) 5 mg PO TID PRN PRN Reason: spasms Last Admin: 07/15/17 20:17 Dose: 5 mg Furosemide (Lasix) 40 mg PO DAILY@0600 [facility] Last Admin: 07/21/17 06:24 Dose: 40 mg Guanfacine HCl (Guanfacine) 1 mg PO BEDTIME [facility] Last Admin: 07/20/17 20:44 Dose: 1 mg Hydralazine HCl (Apresoline) 100 mg PO TID@0600,1400,2000 [facility] Last Admin: 07/21/17 13:30 Dose: 100 mg Sodium Chloride (Normal Saline) 250 mls @ 30 mls/hr IV ASDIRECTED [facility] Last Admin: 07/20/17 11:10 Dose: 30 mls/hr Isosorbide Mononitrate (Imdur) 60 mg PO Q12H [facility] Last Admin: 07/21/17 06:24 Dose: 60 mg Lactobacillus Rhamnosus (Culturelle) 1 cap PO BEDTIME [facility] Last Admin: 07/20/17 20:42 Dose: 1 cap Levothyroxine Sodium (Synthroid) 50 mcg PO ACBREAKFAST [facility] Last Admin: 07/21/17 09:09 Dose: 50 mcg Loratadine (Claritin) 10 mg PO DAILY [facility] Last Admin: 07/21/17 09:08 Dose: 10 mg Lorazepam (Ativan) 0.5 mg PO DAILY [facility] Last Admin: 07/21/17 07:33 Dose: 0.5 mg Lorazepam (Ativan) 1 mg PO BEDTIME [facility] Last Admin: 07/20/17 20:44 Dose: 1 mg Lorazepam (Ativan) 0.5 mg PO Q8H PRN PRN Reason: Anxiety Last Admin: 07/18/17 18:07 Dose: 0.5 mg Losartan Potassium (Cozaar) 100 mg PO DAILY@1800 [facility] Last Admin: 07/20/17 18:40 Dose: 100 mg Metoprolol Tartrate (Lopressor) 12.5 mg PO Q12HR [facility] Last Admin: 07/21/17 10:22 Dose: Not Given Multivitamins/Minerals/Vitamin C (Tab-A-Rajat) 1 tab PO DAILY [facility] Last Admin: 07/21/17 09:05 Dose: 1 tab Nitroglycerin (Nitrostat) 0.4 mg SL Q5M PRN PRN Reason: Chest Pain Omeprazole (Omeprazole) 20 mg PO DAILY [facility] Last Admin: 07/21/17 09:05 Dose: 20 mg Ondansetron HCl (Zofran) 4 mg IVPUSH Q4H PRN PRN Reason: Nausea/Vomiting Last Admin: 07/21/17 13:37 Dose: 4 mg Oxycodone HCl (Oxycodone) 5 mg PO Q6H PRN PRN Reason: Pain Prednisone (Prednisone) 5 mg PO WITHBREAKFAST [facility] Last Admin: 07/21/17 09:02 Dose: 5 mg Senna/Docusate Sodium (Senna Plus) 1 tab PO Q48H [facility] Last Admin: 07/20/17 18:44 Dose: Not Given Senna/Docusate Sodium (Senna Plus) 1 tab PO DAILY [facility] Last Admin: 07/21/17 09:07 Dose: 1 tab Sodium Chloride (Saline Flush) 10 ml FLUSH ASDIRECTED PRN PRN Reason: Keep Vein Open Last Admin: 07/21/17 13:47 Dose: 10 ml Vit C/Vit E/Zinc/Copper/Lutein (Ocuvite Lutein) 1 each PO BID [facility] Last Admin: 07/21/17 09:09 Dose: 1 each Discontinued Medications Ceftazidime (Fortaz) 1 gm IVPUSH Q8HR [facility] Last Admin: 07/15/17 08:15 Dose: 1 gm Ceftazidime (Fortaz) 1 gm IVPUSH Q12HR [facility] Last Admin: 07/16/17 08:48 Dose: 1 gm Citalopram Hydrobromide (Celexa) 10 mg PO DAILY [facility] Last Admin: 07/20/17 18:40 Dose: 10 mg Clopidogrel Bisulfate (Plavix) 75 mg PO DAILY [facility] Linezolid 600 mg/ Premix 300 mls @ 150 mls/hr IV Q12HR [facility] Last Admin: 07/21/17 08:47 Dose: 150 mls/hr *Q Meaningful Use (DIS) - VTE *Q VTE Criteria *Q: - Stroke *Q Stroke Criteria *Q: - AMI *Q AMI Criteria *Q:
[2017-07-21] MEDS: Losartan 50 MG Tab PO SCH (18:24)
== END 2017-07-21 19:20 | disposition swing bed (61) | DRG 603 ==
LOC: LL.MS 17:19
PROVIDERS: ADMIT Physician Assistant; ATTEND Family Medicine
PROC: 02HV33Z Insertion of Infusion Device into Superior Vena Cava, Percutaneous Approach (ICD-10-PCS; principal; 2017-07-15)
DX: L03.116 Cellulitis of left lower limb (principal); I13.0 Hypertensive heart and chronic kidney disease with heart failure and stage 1 through stage 4 chronic kidney disease, or unspecified chronic kidney disease; L97.929 Non-pressure chronic ulcer of unspecified part of left lower leg with unspecified severity; L97.822 Non-pressure chronic ulcer of other part of left lower leg with fat layer exposed; S80.12XD Contusion of left lower leg, subsequent encounter; J30.9 Allergic rhinitis, unspecified; H40.9 Unspecified glaucoma; H91.93 Unspecified hearing loss, bilateral; I48.91 Unspecified atrial fibrillation; I25.10 Atherosclerotic heart disease of native coronary artery without angina pectoris; N18.9 Chronic kidney disease, unspecified; I50.9 Heart failure, unspecified; E78.00 Pure hypercholesterolemia, unspecified; Z86.718 Personal history of other venous thrombosis and embolism; I25.2 Old myocardial infarction; J44.9 Chronic obstructive pulmonary disease, unspecified; G47.33 Obstructive sleep apnea (adult) (pediatric); K21.9 Gastro-esophageal reflux disease without esophagitis; K44.9 Diaphragmatic hernia without obstruction or gangrene; K59.09 Other constipation; R32 Unspecified urinary incontinence; M19.90 Unspecified osteoarthritis, unspecified site; G89.29 Other chronic pain; M06.9 Rheumatoid arthritis, unspecified; Z86.73 Personal history of transient ischemic attack (TIA), and cerebral infarction without residual deficits; M79.7 Fibromyalgia; E03.9 Hypothyroidism, unspecified; M81.0 Age-related osteoporosis without current pathological fracture; I83.893 Varicose veins of bilateral lower extremities with other complications; Z51.5 Encounter for palliative care; R42 Dizziness and giddiness; D50.9 Iron deficiency anemia, unspecified; F41.8 Other specified anxiety disorders; Z88.0 Allergy status to penicillin; Z88.2 Allergy status to sulfonamides; Z88.8 Allergy status to other drugs, medicaments and biological substances; Z91.02 Food additives allergy status; Z79.899 Other long term (current) drug therapy; X58.XXXD Exposure to other specified factors, subsequent encounter
CPT/HCPCS: 36415; 36430; 36569; 80053; 82270; 82271; 82962; 85014; 85018; 85025; 85651; 86140; 86850; 86900; 86901; 86920; 86922; 97161-GP; A9270-GY; J0713; J2020; J2405; J7050; P9016

== ENCOUNTER 2017-07-21 15:42 | Inpatient (IN) | payer MEDICARE, OTHER ==
[2017-07-21] MEDS ORDERED: Nitroglycerin 0.4 MG Tab.SL SL PRN ×2 (16:46→16:53)
[2017-07-21] MEDS ORDERED: Cyclobenzaprine 10 MG Tab PO PRN (16:46)
[2017-07-21] MEDS ORDERED: Sodium Chloride 0.9% 250 ML IV SCH (16:46)
[2017-07-21] MEDS ORDERED: CYCLOBENZAPRINE HCL 5 MG PO PRN (16:53)
[2017-07-21] MEDS ORDERED: LORazepam 0.5 MG Tab PO PRN ×2 (16:53→18:00)
[2017-07-21] MEDS ORDERED: DEXTRAN 70 OP PRN (16:53)
[2017-07-21] MEDS ORDERED: oxyCODONE 5 MG Tab PO PRN ×2 (16:53→18:00)
[2017-07-21] MEDS ORDERED: Acetaminophen 325 MG Tab PO PRN ×2 (16:53→18:00)
[2017-07-21] MEDS ORDERED: HYPROMELLOSE OP PRN (16:53)
[2017-07-21] MEDS ORDERED: [UNRECOGNIZED DRUG - OTHER] PO SCH (18:00)
[2017-07-21] MEDS ORDERED: amLODIPine 5 MG Tab PO SCH (18:00)
[2017-07-21] MEDS ORDERED: Acetaminophen 650 MG Tab.ER PO SCH (18:00)
[2017-07-21] MEDS ORDERED: Ondansetron 4 MG/2 ML SDV IVPUSH PRN (18:00)
[2017-07-21] MEDS ORDERED: ZEAXANTHIN EXT PO SCH (18:00)
[2017-07-21] MEDS ORDERED: LUTEIN EXTRACT PO SCH (18:00)
[2017-07-21] MEDS ORDERED: Non-Formulary Medication 1 Each (Losartan [Cozaar] 100 MG) PO SCH (18:00)
[2017-07-21] MEDS ORDERED: Polyvinyl Alcohol 1.4% Ophth Soln 15 ML Bottle EYEBOTH PRN (18:00)
--- NOTE | 2017-07-21 18:24 | PCM.HP ---
H&P History of Present Illness - General Date of Service: 07/21/17 Admit Problem/Dx: Admission Diagnosis/Problem Admission Diagnosis/Problem Cellulitis Source of Information: Patient, Family, Old Records History Limitations: Reports: No Limitations - History of Present Illness Initial Comments - Free Text/Narative: 87 yo female large wound left lower extremity became secondary to traumatic hematoma became infected with MRSA. She was hospitalized for IV antibiotics and wound management and continued monitoring and adjustment of blood pressure medications. Wound improved and she is stable to admit into swing bed status. - Related Data Allergies/Adverse Reactions: Allergies Allergy/AdvReac Type Severity Reaction Status Date / Time atorvastatin calcium Allergy Lightheaded Verified 07/14/17 17:50 [From Lipitor] ness benzalkonium chloride Allergy Redness Verified 07/14/17 17:50 [From Travatan] celecoxib [From Celebrex] Allergy Change Verified 07/14/17 17:50 Mental Status erythromycin base Allergy Hives Verified 07/14/17 17:50 [Erythromycin Base] iodine Allergy Other Verified 07/14/17 17:50 nifedipine Allergy Swelling Verified 07/14/17 17:50 Penicillins Allergy Swelling Verified 07/14/17 17:50 rofecoxib [From Vioxx] Allergy Change Verified 07/14/17 17:50 Mental Status rosuvastatin calcium Allergy Lightheaded Verified 07/14/17 17:50 [From Crestor] ness sulfamethoxazole Allergy Hives Verified 07/14/17 17:50 [From Sulfamethoprim] travoprost [From Travatan] Allergy Redness Verified 07/14/17 17:50 trimethoprim Allergy Hives Verified 07/14/17 17:50 [From Sulfamethoprim] valdecoxib [From Bextra] Allergy Change Verified 07/14/17 17:50 Mental Status soy Allergy Nausea and Uncoded 07/14/17 17:50 Vomiting Home Medications: Home Meds Levothyroxine Sodium [Unithroid] 50 mcg PO DAILY 07/15/16 [History] Multivitamin [Daily Rajat] 1 tab PO DAILY 07/15/16 [History] Nitroglycerin [Nitrostat] 0.4 mg SL Q5M PRN 07/15/16 [History] Cholecalciferol (Vitamin D3) [Vitamin D3] 2,000 unit PO BEDTIME 09/30/16 [ History] Acetaminophen [Tylenol Arthritis] 1,300 mg PO BID 12/05/16 [History] L.acidoph,Paracasei, B.lactis [Probiotic] 1 each PO BEDTIME 12/05/16 [History] Omeprazole Magnesium [Prilosec Otc] 20 mg PO DAILY 12/05/16 [History] Clopidogrel [Plavix] 75 mg PO DAILY 06/10/17 [History] Cyclobenzaprine HCl 5 mg PO TID PRN 06/10/17 [History] LORazepam 1 mg PO BEDTIME 06/10/17 [History] LORazepam [Ativan] 0.5 mg PO DAILY 06/10/17 [History] Losartan [Cozaar] 100 mg PO DAILY@1800 06/10/17 [History] Lutein Extract/Zeaxanthin Ext [Lutein 15 MG Softgel] 1 cap PO BID 06/10/17 [ History] Prednisone [IJP: Prednisone] 5 mg PO DAILY 06/10/17 [History] Sennosides/Docusate Sodium [Senna-S] 1 each PO DAILY 06/10/17 [History] Ubidecarenone [Coenzyme Q10] 100 mg PO BEDTIME 06/10/17 [History] hydrALAZINE [Apresoline] 100 mg PO TID@0600,1400,199906/10/17 [History] oxyCODONE 5 mg PO Q6HR PRN 06/10/17 [History] Acetaminophen [Tylenol] 650 mg PO Q4HR PRN 07/14/17 [History] Dextran 70/Hypromellose [Artificial Tears] 2 ml OP Q1H PRN 07/14/17 [History] Furosemide 40 mg PO DAILY@0600 07/14/17 [History] Isosorbide Mononitrate [Imdur] 60 mg PO BID@0800,199907/14/17 [History] LORazepam [Ativan] 0.5 mg PO Q8HR PRN 07/14/17 [History] Metoprolol Tartrate 12.5 mg PO Q12HR@0800,199907/14/17 [History] Sennosides/Docusate Sodium [Senna Plus Tablet] 1 tab PO Q48H 07/14/17 [History] amLODIPine Besylate [Amlodipine Besylate] 5 mg PO 0600,1800 07/14/17 [History] guanFACINE 1 mg PO BEDTIME 07/14/17 [History] Past Medical History HEENT History: Reports: Allergic Rhinitis, Cataract, Glaucoma, Hard of Hearing, Impaired Vision, Other (See Below) Other HEENT History: Patient wears trifocals, bilateral hearing aides Cardiovascular History: Reports: Afib, Arrhythmia, Blood Clots/VTE/DVT, CAD, Cardiomyopathy, Heart Failure, Heart Murmur, High Cholesterol, Hypertension, PVD , Other (See Below) Other Cardiovascular History: First degree A-V block, PVCs, PACs, distant brief atrial fibrillation, patient denies previous [place] despite medical records, grade 2 diastolic dysfunction, moderate left ventricular hypertrophy and left atrial enlargement by echocardiogram, mild pulmonary valve insufficiency and mild to moderate tricuspid valve insufficiency with additional mild mitral valve insufficiency by echocardiogram, mild aortic valve sclerosis without stenosis, mild carotid occlusive, history of superficial thrombophlebitis and varicose veins, DVT of the proximal left femoral vein on 08/09/15 with right-sided PE on 05/08/16 and current warfarin therapy Respiratory History: Reports: COPD, Intubation, Previous, PE, Sleep Apnea, SOB, Other (See Below) Other Respiratory History: Patient does use CPAP for her moderate to severe obstructive sleep apnea with previous history of nocturnal hypoxemia, PE as above, benign pulmonary nodules with previous left apical benign granuloma by CT scan on 05/08/16, COPD by chest x-ray with no medical therapy Gastrointestinal History: Reports: Chronic Constipation, Diverticulosis, GERD, Hiatal Hernia, Other (See Below) Other Gastrointestinal History: Probable benign right hepatic mass at about 2.[address] scan on 08/11/16, Benign hepatic cysts by CT scan on 02/18/16, fatty liver secondary to hyperlipidemia Genitourinary History: Reports: Chronic Renal Insuffiency, Renal Disease, Urinary Incontinence, Other (See Below) Other Genitourinary History: kidney disease stage 3, bilateral benign renal cysts CONTACT WORKER History: Reports: Dysfunctional Uterine Bleeding, Fibroids, Other OB/BYN History: surgical menopause Musculoskeletal History: Reports: Arthritis, Back Pain, Chronic, Fibromyalgia, Gout, Neck Pain, Chronic, Osteoarthritis, Osteoporosis, RA Neurological History: Reports: CVA, Headaches, Chronic, Migraines, Other (See Below) Other Neuro History: 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, ambulates with a cane currently, history of distant migraine headaches nonproblematic at this time Psychiatric History: Reports: Addiction, Anxiety, Depression, Other (See Below) Other Psychiatric History: Chronic narcotic use secondary to her fibromyalgia and arthritis Endocrine/Metabolic History: Reports: Hypothyroidism, Osteoporosis, Other (See Below) Other Endocrine/Metabolic History: Hyponatremia secondary to CHF Hematologic History: Reports: Anemia, Blood Transfusion(s), Iron Deficiency, Other (See Below) Other Hematologic History: 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 with transfusion required Immunologic History: Reports: None Oncologic (Cancer) History: Reports: None Dermatologic History: Reports: Other (See Below) Other Dermatologic History: Actinic keratosis of the nose previously treated - Infectious Disease History Infectious Disease History: Reports: Chicken Pox, Measles, Mumps, Shingles - Past Surgical History Head Surgeries/Procedures: Reports: None HEENT Surgical History: Reports: Cataract Surgery, Oral Surgery, Other (See Below) Cardiovascular Surgical History: Reports: Varicose, Vascular Surgery, Other ( See Below) GI Surgical History: Reports: Appendectomy, Colonoscopy, Other (See Below) Female Surgical History: Reports: Breast Biopsy, Hysterectomy, Salpingo- Oophorectomy, Other (See Below) Musculoskeletal Surgical History: Reports: Arthroscopic Knee, Arthroscopic Procedure, Carpal Tunnel, Hip Replacement, Joint Replacement, Other (See Below) Oncologic Surgical History: Reports: Biopsy of Breast, Other (See Below) - Past Imaging History Past Imaging History: Reports: Angiography, Cardiac Echo, Carotid US, CAT Scan, Mammogram, MRI, Sleep Study, Stress Testing, Ultrasound, Venous Doppler Social & Family History - Family History HEENT: Reports: Allergic Rhinitis, Retinal Detachment, Other (See Below) Other HEENT Family History: Daughter with retinal detachment Cardiac: Reports: Bypass, CAD, Heart Murmur, Heart Valve Replacement, High Cholesterol, Hypertension, [place], PVD/COD, Other (See Below) Other Cardiac Family History: Son with mechanical valve replacement and CABG x1 at about age 62, son also - also suffers from hypertension and hyperlipidemia, son with agent orange exposure Respiratory: Reports: None GI: Reports: Celiac Disease, Other (See Below) Other GI Family History: Daughter with celiac disease : Reports: Renal Disease/Insufficiency, Other (See Below) Other Family History: Mother with end-stage renal disease OBGYN: Reports: None Musculoskeletal: Reports: None Neurological: Reports: Migraines, Seizure, Other (See Below) Other Neurological Family History: Granddaughter with seizures at age 19, 2 granddaughters with migraine headaches Psychiatric: Reports: Anxiety, Depression, Other (See Below) Other Psychiatric Family History: Son with anxiety depression disorder Endocrine/Metabolic: Reports: None Hematologic: Reports: None Immunologic: Reports: None Dermatologic: Reports: Psoriasis, Other (See Below) Other Dermatologic Family History: Daughter with psoriasis Oncologic: Reports: Bone, Esophageal, Metastatic, Other (See Below) Other Oncologic Family History: Sister with possible bone cancer fatal at age 18 , sister with fatal throat cancer in her 60s, sister with fatal vaginal cancer in her 60s, father with fatal throat cancer with pulmonary metastases at age 77 - Tobacco Use Smoking Status *Q: Never Smoker Second Hand Smoke Exposure: No - Caffeine Use Caffeine Use: Reports: Coffee, Soda, Tea - Alcohol Use Days Per Week of Alcohol Use: 0 (No previous DWIs, problems with alcohol abuse, etc.) Number of Drinks Per Day: 1 (Usually occasional beer or wine once per month) Total Drinks Per Week: 0 - Recreational Drug Use Recreational Drug Use: No Drug Use in Last 12 Months: No - Living Situation & Occupation Living situation: Reports: , Alone Occupation: Retired H&P Review of Systems - Review of Systems: Review Of Systems: See Below General: Reports: Weakness, Decreased Appetite HEENT: Reports: Other (head pressure) Pulmonary: Reports: No Symptoms Cardiovascular: Reports: No Symptoms Gastrointestinal: Reports: Diarrhea, Decreased Appetite Genitourinary: Reports: No Symptoms Musculoskeletal: Reports: No Symptoms Skin: Reports: Bruising (from IV starts and blood draws) Psychiatric: Reports: Depression, Anxiety Neurological: Reports: Weakness Hematologic/Lymphatic: Reports: No Symptoms Immunologic: Reports: No Symptoms Exam - Exam Exam: See Below - Exam Quality Assessment: Central Line/PICC General: Alert, Cooperative, Mild Distress HEENT: Hearing Intact, Mucosa Moist & [place] Neck: Trachea Midline Lungs: Clear to Auscultation, Normal Respiratory Effort Cardiovascular: Regular Rate, Regular Rhythm GI/Abdominal Exam: Soft, Non-Tender, No Distention (Female) Exam: Deferred Rectal (Female) Exam: Deferred Back Exam: Normal Inspection, Other (kyphosis) Extremities: Non-Tender, No Pedal Edema Skin: Warm, Dry, Intact, Ecchymosis (from IV starts and blood draws) Neuro Extensive - Mental Status: Alert, Normal Cognition, Memory Intact Neuro Extensive - Motor, Sensory, Reflexes: Other (weakness) Psychiatric: Alert, Anxious, Depressed *Q Meaningful Use (ADM) - VTE *Q VTE Criteria *Q: VTE Pharmacological Contraindications *Q: Risk of Bleeding - Stroke *Q Stroke Criteria *Q: - AMI *Q AMI Criteria *Q: - Problem List (1) Cellulitis SNOMED Code(s): 474091875 ICD Code: L03.90 - CELLULITIS, UNSPECIFIED Status: Acute Priority: High Qualifiers: Site of cellulitis: extremity Site of cellulitis of extremity: lower extremity Laterality: left Qualified Code(s): L03.116 - Cellulitis of left lower limb (2) Depression SNOMED Code(s): 61896881 ICD Code: F32.9 - MAJOR DEPRESSIVE DISORDER, SINGLE EPISODE, UNSPECIFIED Status: Acute Priority: Medium Qualifiers: Depression Type: reactive depression Qualified Code(s): F32.9 - Major depressive disorder, single episode, unspecified (3) Renal insufficiency SNOMED Code(s): 804284681 ICD Code: N28.9 - DISORDER OF KIDNEY AND URETER, UNSPECIFIED Status: Acute (4) Anemia SNOMED Code(s): 319390126 ICD Code: D64.9 - ANEMIA, UNSPECIFIED Status: Acute Priority: High Problem Details: Hgb 7.2 Qualifiers: Anemia type: unspecified type Qualified Code(s): D64.9 - Anemia, unspecified (5) Anxiety SNOMED Code(s): 76239948 ICD Code: F41.9 - ANXIETY DISORDER, UNSPECIFIED Status: Acute Priority: Medium (6) CHF (congestive heart failure) SNOMED Code(s): 24497154 ICD Code: I50.9 - HEART FAILURE, UNSPECIFIED Status: Acute Priority: High Onset Date: 10/01/16 Qualifiers: Qualified Code(s): I50.43 - Acute on chronic combined systolic (congestive) and diastolic (congestive) heart failure (7) COPD (chronic obstructive pulmonary disease) SNOMED Code(s): 14149236 ICD Code: J44.9 - CHRONIC OBSTRUCTIVE PULMONARY DISEASE, UNSPECIFIED Status : Acute (8) Comfort measures only status SNOMED Code(s): 66600632016604 ICD Code: Z51.5 - ENCOUNTER FOR PALLIATIVE CARE Status: Acute Priority: Medium (9) Dizziness and giddiness SNOMED Code(s): 126156677 ICD Code: R42 - DIZZINESS AND GIDDINESS Status: Acute Priority: High (10) HTN (hypertension) SNOMED Code(s): 76508561 ICD Code: I10 - ESSENTIAL (PRIMARY) HYPERTENSION Status: Acute Priority: High Qualifiers: Hypertension type: essential hypertension (11) Heart disease SNOMED Code(s): 99456494 ICD Code: I51.9 - HEART DISEASE, UNSPECIFIED Status: Acute Priority: Medium Problem Details: No chest pain or anginal complaints with no significant edema today. Previous echocardiogram and Cardiolite stress test did not indicate any significant cardiac disease with previous history of cardiomegaly likely secondary to her hypertension and only mild history of arrhythmia, including PACs. (12) Hematoma of left lower extremity SNOMED Code(s): 655776656 ICD Code: S80.12XA - CONTUSION OF LEFT LOWER LEG, INITIAL ENCOUNTER Status : Acute Priority: High Qualifiers: Encounter type: subsequent encounter Qualified Code(s): S80.12XD - Contusion of left lower leg, subsequent encounter (13) History of hip replacement SNOMED Code(s): 824732033 ICD Code: Z96.649 - PRESENCE OF UNSPECIFIED ARTIFICIAL HIP JOINT Status: Acute Priority: High Qualifiers: Laterality: left Qualified Code(s): Z96.642 - Presence of left artificial hip joint (14) Hypertension, malignant SNOMED Code(s): 22604863 ICD Code: I10 - ESSENTIAL (PRIMARY) HYPERTENSION Status: Acute Priority: High (15) Hyponatremia SNOMED Code(s): 52006311 ICD Code: E87.1 - HYPO-OSMOLALITY AND HYPONATREMIA Status: Acute Priority : High (16) Hypotension SNOMED Code(s): 38205801 ICD Code: I95.9 - HYPOTENSION, UNSPECIFIED Status: Acute Priority: High (17) Hypothyroidism SNOMED Code(s): 77257254 ICD Code: E03.9 - HYPOTHYROIDISM, UNSPECIFIED Status: Acute (18) Iron deficiency anemia SNOMED Code(s): 78460789 ICD Code: D50.9 - IRON DEFICIENCY ANEMIA, UNSPECIFIED Status: Acute (19) Osteoarthritis SNOMED Code(s): 372637831 ICD Code: M19.90 - UNSPECIFIED OSTEOARTHRITIS, UNSPECIFIED SITE Status: Acute (20) PVC's (premature ventricular contractions) SNOMED Code(s): 69010408 ICD Code: I49.3 - VENTRICULAR PREMATURE DEPOLARIZATION Status: Acute (21) Paroxysmal atrial fibrillation SNOMED Code(s): 811637378 ICD Code: I48.0 - PAROXYSMAL ATRIAL FIBRILLATION Status: Acute Priority: Medium (22) Peptic reflux disease SNOMED Code(s): 45387803 ICD Code: K21.9 - GASTRO-ESOPHAGEAL REFLUX DISEASE WITHOUT ESOPHAGITIS Status: Acute (23) Pulmonary emboli SNOMED Code(s): 09102406 ICD Code: I26.99 - OTHER PULMONARY EMBOLISM WITHOUT ACUTE COR PULMONALE Status: Acute Priority: High (24) 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 SNOMED Code(s): 812816517 ICD Code: Z95.5 - PRESENCE OF CORONARY ANGIOPLASTY IMPLANT AND GRAFT Status : Acute Priority: High (25) Ulcer of left lower extremity SNOMED Code(s): 86604868 ICD Code: L97.929 - NON-PRS CHRONIC ULC UNSP PRT OF L LOW LEG W UNSP SEVERITY Status: Acute Priority: High Qualifiers: Non-pressure ulcer stage: with fat layer exposed Qualified Code(s): L97.922 - Non-pressure chronic ulcer of unspecified part of left lower leg with fat layer exposed (26) Ulcer of left [place] with fat layer exposed SNOMED Code(s): 350428737 ICD Code: L97.822 - NON-PRS CHRONIC ULCER OTH PRT L LOW LEG W FAT LAYER EXPOSED Status: Acute Priority: High (27) Varicose veins of both legs with edema SNOMED Code(s): 37646083 ICD Code: I83.893 - VARICOSE VEINS OF BI LOW EXTREM W OTH COMPLICATIONS Status: Acute Priority: High (28) Weakness generalized SNOMED Code(s): 75577646 ICD Code: R53.1 - WEAKNESS Status: Acute Priority: High (29) Wound SNOMED Code(s): 074360830 ICD Code: T14.90 - INJURY, UNSPECIFIED * DO NOT USE * Status: Acute Priority: High Onset Date: 08/07/14 Problem Details: Multiple superficial abrasions/lacerations as above not requiring surgical repair. Tetanus booster is up to date. Wound care discussed. Neosporin dressings placed by the nurse (30) Hypothyroidism SNOMED Code(s): 17737750 ICD Code: E03.9 - HYPOTHYROIDISM, UNSPECIFIED Status: Chronic Priority: Medium Problem Details: Currently under therapy. TSH normal today (31) Mixed anxiety depressive disorder SNOMED Code(s): 342116305 ICD Code: F41.8 - OTHER SPECIFIED ANXIETY DISORDERS Status: Chronic Problem Details: Stable by patient history with continued close observation by her regular provider (32) Osteoarthritis SNOMED Code(s): 574535328 ICD Code: M19.90 - UNSPECIFIED OSTEOARTHRITIS, UNSPECIFIED SITE Status: Chronic Priority: Medium Problem Details: Recently under moderate control by patient history with additional history of rheumatoid arthritis, gout, and fibromyalgia. She is on chronic narcotic medication with steroid injection received in [facility] [place] yesterday by her history. Further medication adjustments by her regular providers depending on her clinical course (33) Peptic reflux disease SNOMED Code(s): 24605752 ICD Code: K21.9 - GASTRO-ESOPHAGEAL REFLUX DISEASE WITHOUT ESOPHAGITIS Status: Chronic Priority: Medium Problem Details: H. pylori negative today. Currently nonsymptomatic with IV Pepcid given in the emergency room as GI prophylaxis Problem List Initiated/Reviewed/Updated: Yes Orders Last 24hrs: Active Orders 24 hr Category Date Time Status Patient Status [ADT] Routine ADT 07/21/17 16:46 Active CPAP Adult [RT BiPAP/CPAP] [RC] ASDIRECTED Care 07/21/17 16:46 Active Central Line Assessment [RC] 08,20 Care 07/21/17 16:46 Active Dressing Change [Wound Care] [RC] Q12HR Care 07/21/17 20:00 Active Height and Weight [RC] DAILY Care 07/21/17 16:46 Active May Shower [RC] ASDIRECTED Care 07/21/17 16:46 Active Notify Provider Consults [RC] ASDIRECTED Care 07/21/17 16:46 Inactive Notify Provider Consults [RC] ASDIRECTED Care 07/21/17 16:46 Inactive Notify Provider Consults [RC] ASDIRECTED Care 07/21/17 18:15 Ordered Oxygen Therapy [RC] PRN Care 07/21/17 16:46 Active Up With Assistance [RC] ASDIRECTED Care 07/21/17 16:46 Active Vital Signs [RC] QID Care 07/21/17 16:46 Active Consult to Case Management [CONS] Routine Cons 07/21/17 16:46 Active Consult to Physician [CONS] Routine Cons 07/21/17 18:15 Ordered OT Evaluation and Treatment [CONS] Routine Cons 07/21/17 16:46 Active PT Evaluation and Treatment [CONS] Routine Cons 07/21/17 16:46 Active Heart Healthy Diet [DIET] Diet 07/21/17 Dinner Active CBC WITH AUTO DIFF [HEME] AM Lab 07/22/17 05:11 Ordered COMPREHENSIVE METABOLIC PN,CMP [CHEM] AM Lab 07/22/17 05:11 Ordered Acetaminophen [Tylenol Arthritis Pain] Med 07/21/17 20:00 Active 1,300 mg PO Q12H Acetaminophen [Tylenol] Med 07/21/17 18:00 Active 650 mg PO Q4H PRN Cholecalciferol (Vitamin D3) [Vitamin D3] Med 07/21/17 20:00 Active 2,000 units PO BEDTIME Citalopram [Celexa] Med 07/22/17 08:00 Active 20 mg PO DAILY Clopidogrel [Plavix] Med 07/22/17 08:00 Active 75 mg PO DAILY Cyclobenzaprine [Flexeril] Med 07/21/17 16:46 Active 5 mg PO TID PRN Docusate Sodium/Sennosides [Senna Plus] Med 07/22/17 08:00 Active 1 tab PO DAILY Docusate Sodium/Sennosides [Senna Plus] Med 07/22/17 18:00 Active 1 tab PO Q48H Furosemide [Lasix] Med 07/22/17 06:00 Active 40 mg PO DAILY@0600 Isosorbide Mononitrate [Imdur] Med 07/21/17 18:00 Active 60 mg PO Q12H LORazepam [Ativan] Med 07/22/17 08:00 Active 0.5 mg PO DAILY LORazepam [Ativan] Med 07/21/17 18:00 Active 0.5 mg PO Q8H PRN LORazepam [Ativan] Med 07/21/17 20:00 Active 1 mg PO BEDTIME Lactobacillus Rhamnosus GG [Culturelle] Med 07/21/17 20:00 Active 1 cap PO BEDTIME Levothyroxine [Synthroid] Med 07/22/17 07:30 Active 50 mcg PO ACBREAKFAST Loratadine [Claritin] Med 07/22/17 08:00 Active 10 mg PO DAILY Losartan [Cozaar] Med 07/21/17 18:00 Active 100 mg PO DAILY@1800 Lutein/Min/Vit C/Vit E Acetate [Ocuvite Lutein] Med 07/21/17 18:00 Active 1 each PO BID Metoprolol Tartrate [Lopressor] Med 07/21/17 20:00 Active 12.5 mg PO Q12HR Nitroglycerin [Nitrostat] Med 07/21/17 16:46 Active 0.4 mg SL Q5M PRN Omeprazole Med 07/22/17 08:00 Active 20 mg PO DAILY Ondansetron [Zofran] Med 07/21/17 18:00 Active 4 mg IVPUSH Q4H PRN Ondansetron [Zofran] Med 07/21/17 22:00 Ordered 4 mg IVPUSH Q8H Polyvinyl Alcohol [LiquiTears 1.4% Ophth Soln] Med 07/21/17 18:00 Active 0 ml EYEBOTH TID Polyvinyl Alcohol [LiquiTears 1.4% Ophth Soln] Med 07/21/17 18:00 Active See Dose Instructions EYEBOTH Q1H PRN Sodium Chloride 0.9% [Saline Flush] Med 07/21/17 16:46 Active 10 ml FLUSH ASDIRECTED PRN Ubidecarenone [Coenzyme Q10] Med 07/21/17 20:00 Active 100 mg PO BEDTIME amLODIPine [Norvasc] Med 07/21/17 18:00 Active 5 mg PO BID@0600,1800 guanFACINE Med 07/21/17 20:00 Active 1 mg PO BEDTIME hydrALAZINE [Apresoline] Med 07/21/17 20:00 Active 100 mg PO TID@0600,1400,2000 oxyCODONE Med 07/21/17 18:00 Active 5 mg PO Q6H PRN predniSONE Med 07/22/17 08:00 Active 5 mg PO WITHBREAKFAST Central Line PICC Insertion [Central Venous Line Oth 07/21/17 16:46 Ordered Insertion] [OM.PC] Routine Resuscitation Status Routine Resus Stat 07/21/17 16:52 Ordered Medication Orders Acetaminophen (Tylenol Arthritis Pain) 1,300 mg PO Q12H NIKITA Acetaminophen (Tylenol) 650 mg PO Q4H PRN PRN Reason: Pain Amlodipine Besylate (Norvasc) 5 mg PO BID@0600,1800 [facility] Artificial Tears (Liquitears 1.4% Ophth Soln) 0 ml EYEBOTH Q1H PRN PRN Reason: Dry Eyes Artificial Tears (Liquitears 1.4% Ophth Soln) 0 ml EYEBOTH TID [facility] Cholecalciferol (Vitamin D3) 2,000 units PO BEDTIME [facility] Citalopram Hydrobromide (Celexa) 20 mg PO DAILY [facility] Clopidogrel Bisulfate (Plavix) 75 mg PO DAILY [facility] Coenzyme Q10 (Coenzyme Q10) 100 mg PO BEDTIME [facility] Cyclobenzaprine HCl (Flexeril) 5 mg PO TID PRN PRN Reason: spasms Furosemide (Lasix) 40 mg PO DAILY@0600 [facility] Guanfacine HCl (Guanfacine) 1 mg PO BEDTIME [facility] Hydralazine HCl (Apresoline) 100 mg PO TID@0600,1400,2000 [facility] Isosorbide Mononitrate (Imdur) 60 mg PO Q12H [facility] Lactobacillus Rhamnosus (Culturelle) 1 cap PO BEDTIME [facility] Levothyroxine Sodium (Synthroid) 50 mcg PO ACBREAKFAST [facility] Loratadine (Claritin) 10 mg PO DAILY [facility] Lorazepam (Ativan) 0.5 mg PO DAILY [facility] Lorazepam (Ativan) 1 mg PO BEDTIME [facility] Lorazepam (Ativan) 0.5 mg PO Q8H PRN PRN Reason: Anxiety Losartan Potassium (Cozaar) 100 mg PO DAILY@1800 [facility] Metoprolol Tartrate (Lopressor) 12.5 mg PO Q12HR [facility] Nitroglycerin (Nitrostat) 0.4 mg SL Q5M PRN PRN Reason: Chest Pain Omeprazole (Omeprazole) 20 mg PO DAILY [facility] Ondansetron HCl (Zofran) 4 mg IVPUSH Q4H PRN PRN Reason: Nausea/Vomiting Ondansetron HCl (Zofran) 4 mg IVPUSH Q8H [facility] Oxycodone HCl (Oxycodone) 5 mg PO Q6H PRN PRN Reason: Pain Prednisone (Prednisone) 5 mg PO WITHBREAKFAST [facility] Senna/Docusate Sodium (Senna Plus) 1 tab PO Q48H [facility] Senna/Docusate Sodium (Senna Plus) 1 tab PO DAILY [facility] Sodium Chloride (Saline Flush) 10 ml FLUSH ASDIRECTED PRN PRN Reason: Keep Vein Open Vit C/Vit E/Zinc/Copper/Lutein (Ocuvite Lutein) 1 each PO BID [facility] Assessment/Plan Comment:: 07/21/17 Yehuda Quintana MD 87 yo female large ulcer left lower extremity became infected with MRSA. Labile hypertension. She was hospitalized, treated, improved. Now stable for admission into swing bed for continued treatment/application of complex dressing with prescription medication with aseptic technique with minimal BID dressing change necessary due to copious drainage, monitoring/adjusting blood pressure medications, scheduled IV zofran for nausea/vomiting secondary to IV antibiotics vital sign monitoring for labile/malignant hypertension, monitoring psychiatric condition of depression and anxiety, monitoring of psychiatric medications, care and maintenance of central line and PT-OT for strengthening.
[2017-07-21] MEDS ORDERED: Isosorbide Mononitrate 60 MG Tab.ER PO SCH (20:00)
[2017-07-21] MEDS ORDERED: Non-Formulary Medication 1 Each (L.Acidoph,Paracasei, B.Lactis [Probiotic] 1 EACH) PO SCH (20:00)
[2017-07-21] MEDS ORDERED: Non-Formulary Medication 1 Each (Cholecalciferol (Vitamin D3) [Vitamin D3] 2,000 UNIT) PO SCH (20:00)
[2017-07-21] MEDS ORDERED: Metoprolol Tartrate 25 MG Tab PO SCH (20:00)
[2017-07-21] MEDS ORDERED: LORazepam 0.5 MG Tab PO SCH (20:00)
[2017-07-21] MEDS ORDERED: guanFACINE 1 MG Tab PO SCH (20:00)
[2017-07-21] MEDS ORDERED: hydrALAZINE 50 MG Tab PO SCH (20:00)
[2017-07-21] MEDS: hydrALAZINE 50 MG Tab PO SCH (20:42)
[2017-07-21] MEDS: Metoprolol Tartrate 25 MG Tab PO SCH (20:43)
[2017-07-21] MEDS: Lactobacillus Rhamnosus GG (Probiotic) Cap PO SCH (20:43)
[2017-07-21] MEDS: LORazepam 1 MG Tab PO SCH (20:44)
[2017-07-21] MEDS: guanFACINE 1 MG Tab PO SCH (20:44)
[2017-07-21] MEDS: Cholecalciferol (Vitamin D3) 1,000 Unit Tab PO SCH (20:44)
[2017-07-21] MEDS: Acetaminophen 650 MG Tab.ER PO SCH (20:44)
[2017-07-21] MEDS: Losartan 50 MG Tab PO SCH (20:45)
[2017-07-21] MEDS: amLODIPine 5 MG Tab PO SCH (20:46)
[2017-07-21] MEDS: Polyvinyl Alcohol 1.4% Ophth Soln 15 ML Bottle EYEBOTH SCH (20:46)
[2017-07-21] MEDS: Isosorbide Mononitrate 60 MG Tab.ER PO SCH (20:46)
[2017-07-21] MEDS: Lutein/Minerals/Vitamin C/Vitamin E Acetate Cap PO SCH (20:47)
[2017-07-21] MEDS: Ondansetron 4 MG/2 ML SDV IVPUSH SCH (21:23)
[2017-07-21] MEDS: Sodium Chloride 0.9% 10 ML Syringe FLUSH PRN ×2 (21:24→21:35)
[2017-07-22] MEDS: Ondansetron 4 MG/2 ML SDV IVPUSH SCH ×3 (05:34→21:54)
[2017-07-22] MEDS: Sodium Chloride 0.9% 10 ML Syringe FLUSH PRN ×5 (05:35→21:55)
[2017-07-22] MEDS: hydrALAZINE 50 MG Tab PO SCH ×3 (05:42→20:17)
[2017-07-22] MEDS: Isosorbide Mononitrate 60 MG Tab.ER PO SCH ×2 (05:43→17:26)
[2017-07-22] MEDS: Furosemide 40 MG Tab PO SCH (05:43)
[2017-07-22] MEDS: amLODIPine 5 MG Tab PO SCH ×2 (05:43→17:27)
[2017-07-22] MEDS ORDERED: Furosemide 40 MG Tab PO SCH (06:00)
[2017-07-22] MEDS ORDERED: LORazepam 0.5 MG Tab PO SCH (08:00)
[2017-07-22] MEDS ORDERED: Levothyroxine 50 MCG Tab PO SCH (08:00)
[2017-07-22] MEDS ORDERED: PREDNISONE 5 MG PO SCH (08:00)
[2017-07-22] MEDS ORDERED: Non-Formulary Medication 1 Each (Omeprazole Magnesium [Prilosec Otc] 20 MG) PO SCH (08:00)
[2017-07-22] MEDS ORDERED: Multivitamin Tab PO SCH ×2 (08:00)
[2017-07-22] MEDS ORDERED: Clopidogrel 75 MG Tab PO SCH (08:00)
[2017-07-22] MEDS ORDERED: amLODIPine 5 MG Tab PO ONE (08:29)
[2017-07-22] MEDS ORDERED: Furosemide 40 MG Tab PO ONE (08:32)
[2017-07-22] MEDS ORDERED: hydrALAZINE 50 MG Tab PO ONE (08:38)
[2017-07-22] MEDS ORDERED: Isosorbide Mononitrate 60 MG Tab.ER PO ONE (08:39)
[2017-07-22] MEDS: Levothyroxine 50 MCG Tab PO SCH (08:54)
[2017-07-22] MEDS: LORazepam 0.5 MG Tab PO SCH (08:56)
[2017-07-22] MEDS: Citalopram 20 MG Tab PO SCH (08:57)
[2017-07-22] MEDS: Loratadine 10 MG Tab PO SCH (09:00)
[2017-07-22] MEDS: Metoprolol Tartrate 25 MG Tab PO SCH ×2 (09:00→20:23)
[2017-07-22] MEDS: Lutein/Minerals/Vitamin C/Vitamin E Acetate Cap PO SCH ×2 (09:01→17:28)
[2017-07-22] MEDS: Omeprazole 20 MG Cap.CR PO SCH (09:02)
[2017-07-22] MEDS: predniSONE 5 MG Tab PO SCH (09:03)
[2017-07-22] MEDS: Clopidogrel 75 MG Tab PO SCH (09:03)
[2017-07-22] MEDS: Acetaminophen 650 MG Tab.ER PO SCH ×2 (09:04→20:25)
[2017-07-22] MEDS: Polyvinyl Alcohol 1.4% Ophth Soln 15 ML Bottle EYEBOTH SCH ×3 (09:35→17:26)
[2017-07-22] MEDS: Losartan 50 MG Tab PO SCH (17:25)
[2017-07-22] MEDS: guanFACINE 1 MG Tab PO SCH (20:16)
[2017-07-22] MEDS: LORazepam 1 MG Tab PO SCH (20:19)
[2017-07-22] MEDS: Sodium Chloride 0.9% 10 ML Syringe FLUSH SCH (20:25)
[2017-07-22] MEDS: Cholecalciferol (Vitamin D3) 1,000 Unit Tab PO SCH (20:27)
[2017-07-22] MEDS: Lactobacillus Rhamnosus GG (Probiotic) Cap PO SCH (20:30)
[2017-07-23] MEDS: hydrALAZINE 50 MG Tab PO SCH ×3 (05:35→19:48)
[2017-07-23] MEDS: Isosorbide Mononitrate 60 MG Tab.ER PO SCH ×2 (05:36→18:04)
[2017-07-23] MEDS: Furosemide 40 MG Tab PO SCH (05:37)
[2017-07-23] MEDS: amLODIPine 5 MG Tab PO SCH ×2 (05:37→18:06)
[2017-07-23] MEDS: Ondansetron 4 MG/2 ML SDV IVPUSH SCH ×2 (05:38→15:07)
[2017-07-23] MEDS: Sodium Chloride 0.9% 10 ML Syringe FLUSH PRN ×4 (05:41→19:58)
[2017-07-23] MEDS: Levothyroxine 50 MCG Tab PO SCH (08:57)
[2017-07-23] MEDS: LORazepam 0.5 MG Tab PO SCH (09:16)
[2017-07-23] MEDS: Citalopram 20 MG Tab PO SCH (09:17)
[2017-07-23] MEDS: Polyvinyl Alcohol 1.4% Ophth Soln 15 ML Bottle EYEBOTH SCH ×3 (09:21→18:04)
[2017-07-23] MEDS: Metoprolol Tartrate 25 MG Tab PO SCH ×2 (09:22→19:53)
[2017-07-23] MEDS: Lutein/Minerals/Vitamin C/Vitamin E Acetate Cap PO SCH ×2 (09:23→18:06)
[2017-07-23] MEDS: Omeprazole 20 MG Cap.CR PO SCH (09:24)
[2017-07-23] MEDS: predniSONE 5 MG Tab PO SCH (09:25)
[2017-07-23] MEDS: Clopidogrel 75 MG Tab PO SCH (09:25)
[2017-07-23] MEDS: Sodium Chloride 0.9% 10 ML Syringe FLUSH SCH ×2 (09:26→19:55)
[2017-07-23] MEDS: Acetaminophen 650 MG Tab.ER PO SCH ×2 (09:27→19:57)
[2017-07-23] MEDS: Loratadine 10 MG Tab PO SCH (09:47)
[2017-07-23] MEDS: Losartan 50 MG Tab PO SCH (18:02)
[2017-07-23] MEDS: LORazepam 1 MG Tab PO SCH (19:49)
[2017-07-23] MEDS: guanFACINE 1 MG Tab PO SCH (19:50)
[2017-07-23] MEDS: Lactobacillus Rhamnosus GG (Probiotic) Cap PO SCH (19:52)
[2017-07-23] MEDS: Cholecalciferol (Vitamin D3) 1,000 Unit Tab PO SCH (19:56)
[2017-07-23] MEDS ORDERED: Mupirocin Oint 22 GM Tube TOP SCH (21:45)
[2017-07-23] MEDS ORDERED: Mupirocin Oint 22 GM Tube ONE (21:53)
[2017-07-24] MEDS: hydrALAZINE 50 MG Tab PO SCH ×3 (06:25→19:21)
[2017-07-24] MEDS: Isosorbide Mononitrate 60 MG Tab.ER PO SCH ×2 (06:26→17:43)
[2017-07-24] MEDS: amLODIPine 5 MG Tab PO SCH ×2 (06:26→17:44)
[2017-07-24] MEDS: Furosemide 40 MG Tab PO SCH (06:27)
[2017-07-24] MEDS: Levothyroxine 50 MCG Tab PO SCH (07:32)
[2017-07-24] MEDS: LORazepam 0.5 MG Tab PO SCH (07:35)
[2017-07-24] MEDS: Mupirocin Oint 22 GM Tube TOP SCH ×2 (07:36→19:23)
[2017-07-24] MEDS: Citalopram 20 MG Tab PO SCH (07:37)
[2017-07-24] MEDS: Loratadine 10 MG Tab PO SCH (07:37)
[2017-07-24] MEDS: Polyvinyl Alcohol 1.4% Ophth Soln 15 ML Bottle EYEBOTH SCH ×3 (07:38→17:44)
[2017-07-24] MEDS: Metoprolol Tartrate 25 MG Tab PO SCH ×2 (07:38→19:25)
[2017-07-24] MEDS: Lutein/Minerals/Vitamin C/Vitamin E Acetate Cap PO SCH ×2 (07:39→17:46)
[2017-07-24] MEDS: Clopidogrel 75 MG Tab PO SCH (07:40)
[2017-07-24] MEDS: Omeprazole 20 MG Cap.CR PO SCH (07:40)
[2017-07-24] MEDS: predniSONE 5 MG Tab PO SCH (07:41)
[2017-07-24] MEDS: Acetaminophen 650 MG Tab.ER PO SCH ×2 (07:41→19:27)
[2017-07-24] MEDS: Zinc (Zinc Gluconate) 50 MG Tab PO SCH (07:43)
[2017-07-24] MEDS: Sodium Chloride 0.9% 10 ML Syringe FLUSH SCH ×2 (07:44→19:26)
--- NOTE | 2017-07-24 08:33 | PN ---
Date of Service: 07/23/2017 OPERATING SURGEON: Maynor Bolanos MD REFERRING PHYSICIAN: Kathleen Rizo MD This patient has been hospitalized in the swing bed because of a large ulcer which has developed on the medial aspect of her left leg. This developed over a month ago and approximately four weeks ago, I performed debridement of this wound with removal of a large eschar. The patient has been undergoing intensive wound care with a variety of measures in the interim and on examination of the wound today, the patient states that she has no pain. The wound is now shallow and at skin level, and the base of the wound is all clean with good granulation tissue and no visible signs of infection. It measures approximately 7 x 9 cm in size. The surrounding skin is of good quality. There is no erythema of the skin or swelling in the leg. Management options for this left leg ulcer are reviewed and discussed with her primary care provider. At this point, I believe an Unna boot is a reasonable option, but Silvadene dressing b.i.d. would also be a good choice for this patient. She continues to receive good care. Other options will be considered by her primary care provider for continued wound care, and I will see the patient back adebayo Bolanos MD /[id number]
[2017-07-24] MEDS: Losartan 50 MG Tab PO SCH (17:42)
[2017-07-24] MEDS: LORazepam 1 MG Tab PO SCH (19:22)
[2017-07-24] MEDS: guanFACINE 1 MG Tab PO SCH (19:24)
[2017-07-24] MEDS: Lactobacillus Rhamnosus GG (Probiotic) Cap PO SCH (19:24)
[2017-07-24] MEDS: Cholecalciferol (Vitamin D3) 1,000 Unit Tab PO SCH (19:28)
[2017-07-25] MEDS: hydrALAZINE 50 MG Tab PO SCH ×3 (05:43→19:32)
[2017-07-25] MEDS: Isosorbide Mononitrate 60 MG Tab.ER PO SCH ×2 (05:44→17:52)
[2017-07-25] MEDS: amLODIPine 5 MG Tab PO SCH ×2 (05:45→17:53)
[2017-07-25] MEDS: Furosemide 40 MG Tab PO SCH (05:45)
[2017-07-25] MEDS: Levothyroxine 50 MCG Tab PO SCH (07:22)
[2017-07-25] MEDS: Mupirocin Oint 22 GM Tube TOP SCH ×2 (07:23→19:39)
[2017-07-25] MEDS: LORazepam 0.5 MG Tab PO SCH (07:23)
[2017-07-25] MEDS: Loratadine 10 MG Tab PO SCH (07:24)
[2017-07-25] MEDS: Citalopram 20 MG Tab PO SCH (07:24)
[2017-07-25] MEDS: Polyvinyl Alcohol 1.4% Ophth Soln 15 ML Bottle EYEBOTH SCH ×3 (07:25→17:53)
[2017-07-25] MEDS: Metoprolol Tartrate 25 MG Tab PO SCH ×2 (07:25→19:41)
[2017-07-25] MEDS: Lutein/Minerals/Vitamin C/Vitamin E Acetate Cap PO SCH ×2 (07:26→17:53)
[2017-07-25] MEDS: Omeprazole 20 MG Cap.CR PO SCH (07:26)
[2017-07-25] MEDS: Clopidogrel 75 MG Tab PO SCH (07:27)
[2017-07-25] MEDS: Sodium Chloride 0.9% 10 ML Syringe FLUSH SCH (07:28)
[2017-07-25] MEDS: predniSONE 5 MG Tab PO SCH (07:28)
[2017-07-25] MEDS: Acetaminophen 650 MG Tab.ER PO SCH ×2 (07:29→19:42)
[2017-07-25] MEDS: Zinc (Zinc Gluconate) 50 MG Tab PO SCH (07:30)
[2017-07-25] MEDS: Losartan 50 MG Tab PO SCH (17:51)
[2017-07-25] MEDS: LORazepam 1 MG Tab PO SCH (19:38)
[2017-07-25] MEDS ORDERED: Loperamide 2 MG Tab PO PRN (19:40)
[2017-07-25] MEDS: Lactobacillus Rhamnosus GG (Probiotic) Cap PO SCH (19:40)
[2017-07-25] MEDS: guanFACINE 1 MG Tab PO SCH (19:40)
[2017-07-25] MEDS ORDERED: hydrOXYzine HCl 50 MG/ML SDV IM PRN (19:41)
[2017-07-25] MEDS ORDERED: Ondansetron 4 MG Tab.DIS PO PRN (19:42)
[2017-07-25] MEDS: Cholecalciferol (Vitamin D3) 1,000 Unit Tab PO SCH (19:43)
[2017-07-26] MEDS: Isosorbide Mononitrate 60 MG Tab.ER PO SCH ×2 (05:54→17:37)
[2017-07-26] MEDS: hydrALAZINE 50 MG Tab PO SCH ×3 (05:54→19:17)
[2017-07-26] MEDS: amLODIPine 5 MG Tab PO SCH ×2 (05:55→17:38)
[2017-07-26] MEDS: Furosemide 40 MG Tab PO SCH (05:55)
[2017-07-26] MEDS: Levothyroxine 50 MCG Tab PO SCH (08:11)
[2017-07-26] MEDS: LORazepam 0.5 MG Tab PO SCH (08:12)
[2017-07-26] MEDS: Loratadine 10 MG Tab PO SCH (08:13)
[2017-07-26] MEDS: Citalopram 20 MG Tab PO SCH (08:13)
[2017-07-26] MEDS: Metoprolol Tartrate 25 MG Tab PO SCH ×2 (08:14→19:21)
[2017-07-26] MEDS: Polyvinyl Alcohol 1.4% Ophth Soln 15 ML Bottle EYEBOTH SCH ×3 (08:14→17:37)
[2017-07-26] MEDS: Lutein/Minerals/Vitamin C/Vitamin E Acetate Cap PO SCH ×2 (08:15→17:38)
[2017-07-26] MEDS: Clopidogrel 75 MG Tab PO SCH (08:16)
[2017-07-26] MEDS: Omeprazole 20 MG Cap.CR PO SCH (08:16)
[2017-07-26] MEDS: predniSONE 5 MG Tab PO SCH (08:17)
[2017-07-26] MEDS: Zinc (Zinc Gluconate) 50 MG Tab PO SCH (08:18)
[2017-07-26] MEDS: Acetaminophen 650 MG Tab.ER PO SCH ×2 (08:18→19:23)
[2017-07-26] MEDS: Mupirocin Oint 22 GM Tube TOP SCH ×2 (08:26→19:19)
[2017-07-26] MEDS: Losartan 50 MG Tab PO SCH (17:36)
[2017-07-26] MEDS: LORazepam 1 MG Tab PO SCH (19:18)
[2017-07-26] MEDS: Lactobacillus Rhamnosus GG (Probiotic) Cap PO SCH (19:20)
[2017-07-26] MEDS: guanFACINE 1 MG Tab PO SCH (19:21)
[2017-07-26] MEDS: Cholecalciferol (Vitamin D3) 1,000 Unit Tab PO SCH (19:23)
[2017-07-27] MEDS: hydrALAZINE 50 MG Tab PO SCH ×3 (05:11→19:17)
[2017-07-27] MEDS: Furosemide 40 MG Tab PO SCH (05:13)
[2017-07-27] MEDS: amLODIPine 5 MG Tab PO SCH ×2 (05:14→17:31)
[2017-07-27] MEDS: Levothyroxine 50 MCG Tab PO SCH (08:10)
[2017-07-27] MEDS: LORazepam 0.5 MG Tab PO SCH (08:10)
[2017-07-27] MEDS: Polyvinyl Alcohol 1.4% Ophth Soln 15 ML Bottle EYEBOTH SCH ×3 (08:11→17:31)
[2017-07-27] MEDS: Loratadine 10 MG Tab PO SCH (08:11)
[2017-07-27] MEDS: Metoprolol Tartrate 25 MG Tab PO SCH ×2 (08:16→19:22)
[2017-07-27] MEDS: Lutein/Minerals/Vitamin C/Vitamin E Acetate Cap PO SCH ×2 (08:18→17:32)
[2017-07-27] MEDS: predniSONE 5 MG Tab PO SCH (08:18)
[2017-07-27] MEDS: Zinc (Zinc Gluconate) 50 MG Tab PO SCH (08:19)
[2017-07-27] MEDS: Acetaminophen 650 MG Tab.ER PO SCH ×2 (08:19→19:23)
[2017-07-27] MEDS: Sertraline 50 MG Tab PO SCH (08:27)
[2017-07-27] MEDS: Mupirocin Oint 22 GM Tube TOP SCH ×2 (08:36→19:19)
[2017-07-27] MEDS: Omeprazole 20 MG Cap.CR PO SCH (11:50)
[2017-07-27] MEDS: Losartan 50 MG Tab PO SCH (17:25)
[2017-07-27] MEDS: Isosorbide Mononitrate 60 MG Tab.ER PO SCH (17:30)
[2017-07-27] MEDS: LORazepam 1 MG Tab PO SCH (19:19)
[2017-07-27] MEDS: Lactobacillus Rhamnosus GG (Probiotic) Cap PO SCH (19:20)
[2017-07-27] MEDS: guanFACINE 1 MG Tab PO SCH (19:21)
[2017-07-27] MEDS: Clopidogrel 75 MG Tab PO SCH (19:23)
[2017-07-27] MEDS: Cholecalciferol (Vitamin D3) 1,000 Unit Tab PO SCH (19:25)
[2017-07-28] MEDS: hydrALAZINE 50 MG Tab PO SCH ×3 (05:51→19:29)
[2017-07-28] MEDS: Furosemide 40 MG Tab PO SCH (05:52)
[2017-07-28] MEDS: amLODIPine 5 MG Tab PO SCH ×2 (05:52→17:22)
[2017-07-28] MEDS: Levothyroxine 50 MCG Tab PO SCH (07:41)
[2017-07-28] MEDS: LORazepam 0.5 MG Tab PO SCH (07:43)
[2017-07-28] MEDS: Loratadine 10 MG Tab PO SCH (07:44)
[2017-07-28] MEDS: Polyvinyl Alcohol 1.4% Ophth Soln 15 ML Bottle EYEBOTH SCH ×3 (07:44→17:22)
[2017-07-28] MEDS: Metoprolol Tartrate 25 MG Tab PO SCH ×2 (07:44→19:32)
[2017-07-28] MEDS: Lutein/Minerals/Vitamin C/Vitamin E Acetate Cap PO SCH ×2 (07:45→17:22)
[2017-07-28] MEDS: Acetaminophen 650 MG Tab.ER PO SCH ×2 (07:46→19:34)
[2017-07-28] MEDS: predniSONE 5 MG Tab PO SCH (07:46)
[2017-07-28] MEDS: Sertraline 50 MG Tab PO SCH (07:47)
[2017-07-28] MEDS: Zinc (Zinc Gluconate) 50 MG Tab PO SCH (07:47)
[2017-07-28] MEDS: Mupirocin Oint 22 GM Tube TOP SCH ×2 (07:48→19:30)
[2017-07-28] MEDS: Omeprazole 20 MG Cap.CR PO SCH (11:08)
[2017-07-28] MEDS: Isosorbide Mononitrate 60 MG Tab.ER PO SCH (17:21)
[2017-07-28] MEDS: Losartan 50 MG Tab PO SCH (17:21)
[2017-07-28] MEDS: LORazepam 1 MG Tab PO SCH (19:30)
[2017-07-28] MEDS: guanFACINE 1 MG Tab PO SCH (19:31)
[2017-07-28] MEDS: Lactobacillus Rhamnosus GG (Probiotic) Cap PO SCH (19:31)
[2017-07-28] MEDS: Clopidogrel 75 MG Tab PO SCH (19:34)
[2017-07-28] MEDS: Cholecalciferol (Vitamin D3) 1,000 Unit Tab PO SCH (19:35)
[2017-07-29] MEDS: Furosemide 40 MG Tab PO SCH (05:51)
[2017-07-29] MEDS: hydrALAZINE 50 MG Tab PO SCH ×3 (05:51→19:08)
[2017-07-29] MEDS: amLODIPine 5 MG Tab PO SCH ×2 (05:52→17:06)
[2017-07-29] MEDS: Levothyroxine 50 MCG Tab PO SCH (08:00)
[2017-07-29] MEDS: LORazepam 0.5 MG Tab PO SCH (08:01)
[2017-07-29] MEDS: Loratadine 10 MG Tab PO SCH (08:02)
[2017-07-29] MEDS: Polyvinyl Alcohol 1.4% Ophth Soln 15 ML Bottle EYEBOTH SCH ×3 (08:04→17:04)
[2017-07-29] MEDS: Metoprolol Tartrate 25 MG Tab PO SCH ×2 (08:05→19:09)
[2017-07-29] MEDS: predniSONE 5 MG Tab PO SCH (08:06)
[2017-07-29] MEDS: Lutein/Minerals/Vitamin C/Vitamin E Acetate Cap PO SCH ×2 (08:06→17:06)
[2017-07-29] MEDS: Acetaminophen 650 MG Tab.ER PO SCH ×2 (08:07→19:11)
[2017-07-29] MEDS: Zinc (Zinc Gluconate) 50 MG Tab PO SCH (08:08)
[2017-07-29] MEDS: Sertraline 50 MG Tab PO SCH (08:08)
[2017-07-29] MEDS: Mupirocin Oint 22 GM Tube TOP SCH ×2 (08:19→19:15)
[2017-07-29] MEDS: Omeprazole 20 MG Cap.CR PO SCH (11:38)
[2017-07-29] MEDS: Losartan 50 MG Tab PO SCH (17:03)
[2017-07-29] MEDS: Isosorbide Mononitrate 60 MG Tab.ER PO SCH (17:04)
[2017-07-29] MEDS: Lactobacillus Rhamnosus GG (Probiotic) Cap PO SCH (19:07)
[2017-07-29] MEDS: guanFACINE 1 MG Tab PO SCH (19:07)
[2017-07-29] MEDS: Clopidogrel 75 MG Tab PO SCH (19:10)
[2017-07-29] MEDS: Cholecalciferol (Vitamin D3) 1,000 Unit Tab PO SCH (19:11)
[2017-07-29] MEDS: LORazepam 1 MG Tab PO SCH (19:12)
[2017-07-30] MEDS: amLODIPine 5 MG Tab PO SCH ×2 (05:47→17:39)
[2017-07-30] MEDS: Furosemide 40 MG Tab PO SCH (05:48)
[2017-07-30] MEDS: hydrALAZINE 50 MG Tab PO SCH ×3 (05:48→19:37)
[2017-07-30] MEDS: Levothyroxine 50 MCG Tab PO SCH (07:51)
[2017-07-30] MEDS: LORazepam 0.5 MG Tab PO SCH (07:54)
[2017-07-30] MEDS: Loratadine 10 MG Tab PO SCH (07:54)
[2017-07-30] MEDS: Metoprolol Tartrate 25 MG Tab PO SCH ×2 (07:55→19:43)
[2017-07-30] MEDS: Polyvinyl Alcohol 1.4% Ophth Soln 15 ML Bottle EYEBOTH SCH ×3 (07:55→17:39)
[2017-07-30] MEDS: Lutein/Minerals/Vitamin C/Vitamin E Acetate Cap PO SCH ×2 (07:56→17:40)
[2017-07-30] MEDS: predniSONE 5 MG Tab PO SCH (07:57)
[2017-07-30] MEDS: Acetaminophen 650 MG Tab.ER PO SCH ×2 (07:58→19:44)
[2017-07-30] MEDS: Zinc (Zinc Gluconate) 50 MG Tab PO SCH (07:58)
[2017-07-30] MEDS: Sertraline 50 MG Tab PO SCH (07:59)
[2017-07-30] MEDS: Mupirocin Oint 22 GM Tube TOP SCH ×2 (08:03→19:44)
--- NOTE | 2017-07-30 11:22 | PCM.PN ---
- General Info Date of Service: 07/30/17 Admission Dx/Problem (Free Text): Admission Diagnosis/Problem Admission Diagnosis/Problem Cellulitis LLE ulceration Functional Status: Reports: Pain Controlled - Review of Systems General: Reports: Malaise HEENT: Reports: Other (says head "feels fuzzy", has had this intermittently for years) Pulmonary: Reports: No Symptoms Cardiovascular: Reports: No Symptoms Gastrointestinal: Reports: No Symptoms Genitourinary: Reports: No Symptoms Musculoskeletal: Reports: No Symptoms Skin: Reports: No Symptoms Neurological: Reports: No Symptoms, Confusion ("more like a fuzzy feeling in my head, clears then comes back") Psychiatric: Reports: Confusion (says more of this fuzzy feeling, which comes and goes) - Patient Data Vitals - Most Recent: Last Vital Signs Temp 98.4 F 07/30/17 08:00 Pulse 68 07/30/17 08:00 Resp 20 07/30/17 08:00 BP 176/75 H 07/30/17 08:00 Pulse Ox 95 07/30/17 08:00 Weight - Most Recent: 179 lb 6.4 oz I&O - Last 24 Hours: Intake & Output 07/29/17 07/30/17 07/30/17 22:59 06:59 14:59 Intake Total 0 150 280 Balance 0 150 280 Med Orders - Current: Current Medications Acetaminophen (Tylenol Arthritis Pain) 1,300 mg PO Q12H [facility] Last Admin: 07/30/17 07:58 Dose: 1,300 mg Acetaminophen (Tylenol) 650 mg PO Q4H PRN PRN Reason: Pain Last Admin: 07/25/17 16:46 Dose: 650 mg Amlodipine Besylate (Norvasc) 5 mg PO BID@0600,1800 [facility] Last Admin: 07/30/17 05:47 Dose: 5 mg Artificial Tears (Liquitears 1.4% Ophth Soln) 0 ml EYEBOTH Q1H PRN PRN Reason: Dry Eyes Last Admin: 07/23/17 09:19 Dose: 2 drop Artificial Tears (Liquitears 1.4% Ophth Soln) 0 ml EYEBOTH TID [facility] Last Admin: 07/30/17 07:55 Dose: 2 drop Cholecalciferol (Vitamin D3) 2,000 units PO BEDTIME [facility] Last Admin: 07/29/17 19:11 Dose: 2,000 units Clopidogrel Bisulfate (Plavix) 75 mg PO BEDTIME [facility] Last Admin: 07/29/17 19:10 Dose: 75 mg Coenzyme Q10 (Coenzyme Q10) 100 mg PO BEDTIME [facility] Last Admin: 07/29/17 19:07 Dose: 100 mg Cyclobenzaprine HCl (Flexeril) 5 mg PO TID PRN PRN Reason: spasms Last Admin: 07/21/17 20:42 Dose: 5 mg Furosemide (Lasix) 40 mg PO DAILY@0600 [facility] Last Admin: 07/30/17 05:48 Dose: 40 mg Guanfacine HCl (Guanfacine) 1 mg PO BEDTIME [facility] Last Admin: 07/29/17 19:07 Dose: 1 mg Hydralazine HCl (Apresoline) 100 mg PO TID@0600,1400,2000 [facility] Last Admin: 07/30/17 05:48 Dose: 100 mg Hydroxyzine HCl (Vistaril) 25 mg IM Q4H PRN PRN Reason: Nausea/Vomiting Isosorbide Mononitrate (Imdur) 60 mg PO DAILY@1800 [facility] Last Admin: 07/29/17 17:04 Dose: 60 mg Lactobacillus Rhamnosus (Culturelle) 1 cap PO BEDTIME [facility] Last Admin: 07/29/17 19:07 Dose: 1 cap Levothyroxine Sodium (Synthroid) 50 mcg PO ACBREAKFAST [facility] Last Admin: 07/30/17 07:51 Dose: 50 mcg Loperamide HCl (Imodium Ad) 2 mg PO Q4H PRN PRN Reason: Diarrhea Last Admin: 07/25/17 20:04 Dose: 2 mg Loratadine (Claritin) 10 mg PO DAILY [facility] Last Admin: 07/30/17 07:54 Dose: 10 mg Lorazepam (Ativan) 0.5 mg PO DAILY [facility] Last Admin: 07/30/17 07:54 Dose: 0.5 mg Lorazepam (Ativan) 1 mg PO BEDTIME [facility] Last Admin: 07/29/17 19:12 Dose: 1 mg Lorazepam (Ativan) 0.5 mg PO Q8H PRN PRN Reason: Anxiety Losartan Potassium (Cozaar) 50 mg PO DAILY@1800 [facility] Last Admin: 07/29/17 17:03 Dose: 50 mg Metoprolol Tartrate (Lopressor) 12.5 mg PO Q12HR [facility] Last Admin: 07/30/17 07:55 Dose: 12.5 mg Mupirocin (Bactroban Oint) 0 gm TOP 08,20 [facility] Last Admin: 07/30/17 08:03 Dose: 1 applic Nitroglycerin (Nitrostat) 0.4 mg SL Q5M PRN PRN Reason: Chest Pain Omeprazole (Omeprazole) 20 mg PO DAILY@1200 [facility] Last Admin: 07/29/17 11:38 Dose: 20 mg Ondansetron HCl (Zofran Odt) 4 mg PO Q4H PRN PRN Reason: Nausea/Vomiting Oxycodone HCl (Oxycodone) 5 mg PO Q6H PRN PRN Reason: Pain Prednisone (Prednisone) 5 mg PO WITHBREAKFAST [facility] Last Admin: 07/30/17 07:57 Dose: 5 mg Senna/Docusate Sodium (Senna Plus) 1 tab PO Q48H [facility] Last Admin: 07/28/17 17:23 Dose: 1 tab Senna/Docusate Sodium (Senna Plus) 1 tab PO DAILY [facility] Last Admin: 07/30/17 07:57 Dose: 1 tab Sertraline HCl (Zoloft) 50 mg PO DAILY [facility] Last Admin: 07/30/17 07:59 Dose: 50 mg Vit C/Vit E/Zinc/Copper/Lutein (Ocuvite Lutein) 1 each PO BID [facility] Last Admin: 07/30/17 07:56 Dose: 1 each Zinc Gluconate (Zinc) 50 mg PO DAILY [facility] Stop: 09/03/17 08:01 Last Admin: 07/30/17 07:58 Dose: 50 mg Discontinued Medications Amlodipine Besylate (Norvasc) 5 mg PO ONETIME ONE Stop: 07/22/17 08:30 Last Admin: 07/22/17 09:05 Dose: 5 mg Citalopram Hydrobromide (Celexa) 20 mg PO DAILY [facility] Last Admin: 07/26/17 08:13 Dose: 20 mg Clopidogrel Bisulfate (Plavix) 75 mg PO DAILY [facility] Last Admin: 07/26/17 08:16 Dose: 75 mg Furosemide (Lasix) 40 mg PO ONETIME ONE Stop: 07/22/17 08:33 Last Admin: 07/22/17 09:06 Dose: 40 mg Hydralazine HCl (Apresoline) 100 mg PO ONETIME ONE Stop: 07/22/17 08:39 Last Admin: 07/22/17 09:06 Dose: 100 mg Isosorbide Mononitrate (Imdur) 60 mg PO Q12H [facility] Last Admin: 07/26/17 17:37 Dose: 60 mg Isosorbide Mononitrate (Imdur) 60 mg PO ONETIME ONE Stop: 07/22/17 08:40 Last Admin: 07/22/17 09:07 Dose: 60 mg Losartan Potassium (Cozaar) 100 mg PO DAILY@1800 [facility] Last Admin: 07/26/17 17:36 Dose: 100 mg Multivitamins/Minerals/Vitamin C (Tab-A-Rajat) 1 tab PO DAILY [facility] Mupirocin (Bactroban Oint) 0 gm TOP 08,20 [facility] Mupirocin (Bactroban Oint) Confirm Administered Dose 22 gm .ROUTE .STK-MED ONE Stop: 07/23/17 21:54 Last Admin: 07/23/17 22:44 Dose: Not Given Omeprazole (Omeprazole) 20 mg PO DAILY [facility] Last Admin: 07/26/17 08:16 Dose: 20 mg Ondansetron HCl (Zofran) 4 mg IVPUSH Q4H PRN PRN Reason: Nausea/Vomiting Ondansetron HCl (Zofran) 4 mg IVPUSH Q8H [facility] Last Admin: 07/23/17 15:07 Dose: 4 mg Sodium Chloride (Saline Flush) 10 ml FLUSH ASDIRECTED PRN PRN Reason: Keep Vein Open Last Admin: 07/23/17 19:58 Dose: 10 ml Sodium Chloride (Saline Flush) 10 ml FLUSH Q12HR [facility] Last Admin: 07/25/17 07:28 Dose: 10 ml - Exam General: Alert, Oriented HEENT: EOMI Neck: Supple, Trachea Midline, No JVD Lungs: Clear to Auscultation Cardiovascular: Regular Rate, Regular Rhythm GI/Abdominal Exam: Normal Bowel Sounds, Soft, Non-Tender (Female) Exam: Deferred Back Exam: Normal Inspection Extremities: Pedal Edema Skin: Warm, Dry Wound/Incisions: Drainage (scant), Other (LLE ulcer has good granulation tissue with scant drainage and no foul odor. 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 Labile hypertension. She was hospitalized, treated, improved. Now stable for admission into swing bed for continued treatment/application of complex dressing with prescription medication with aseptic technique with minimal BID dressing change necessary due to copious drainage, monitoring/adjusting blood pressure medications, scheduled IV zofran for nausea/vomiting secondary to IV antibiotics vital sign monitoring for labile/malignant hypertension, monitoring psychiatric condition of depression and anxiety, monitoring of psychiatric medications, care and maintenance of central line and PT-OT for strengthening. 07-30-17 GENESIS Dubose wound examined today. No pain whatsoever. Wound appears clean. Patient says, "I just don't feel right today". Does say she has gotten this fuzzy feeling in her head intermittently for a very long time. Reviewed recent labs. Encouragement offered. Nursing staff and family question whether this wound is at a point where skin grafting could be considered, will consult Dr. Blackman.
[2017-07-30] MEDS: Omeprazole 20 MG Cap.CR PO SCH (11:40)
[2017-07-30] MEDS: Isosorbide Mononitrate 60 MG Tab.ER PO SCH (17:38)
[2017-07-30] MEDS: Losartan 50 MG Tab PO SCH (17:38)
[2017-07-30] MEDS: LORazepam 1 MG Tab PO SCH (19:39)
[2017-07-30] MEDS: Cholecalciferol (Vitamin D3) 1,000 Unit Tab PO SCH (19:40)
[2017-07-30] MEDS: Lactobacillus Rhamnosus GG (Probiotic) Cap PO SCH (19:40)
[2017-07-30] MEDS: Clopidogrel 75 MG Tab PO SCH (19:41)
[2017-07-30] MEDS: guanFACINE 1 MG Tab PO SCH (19:42)
[2017-07-31] MEDS: hydrALAZINE 50 MG Tab PO SCH ×3 (05:42→19:24)
[2017-07-31] MEDS: Furosemide 40 MG Tab PO SCH (05:42)
[2017-07-31] MEDS: amLODIPine 5 MG Tab PO SCH ×2 (05:42→17:53)
[2017-07-31] MEDS: Levothyroxine 50 MCG Tab PO SCH (07:57)
[2017-07-31] MEDS: LORazepam 0.5 MG Tab PO SCH (07:59)
[2017-07-31] MEDS: Loratadine 10 MG Tab PO SCH (08:00)
[2017-07-31] MEDS: Polyvinyl Alcohol 1.4% Ophth Soln 15 ML Bottle EYEBOTH SCH ×3 (08:01→17:52)
[2017-07-31] MEDS: Metoprolol Tartrate 25 MG Tab PO SCH ×2 (08:01→19:29)
[2017-07-31] MEDS: predniSONE 5 MG Tab PO SCH (08:03)
[2017-07-31] MEDS: Lutein/Minerals/Vitamin C/Vitamin E Acetate Cap PO SCH ×2 (08:03→17:53)
[2017-07-31] MEDS: Acetaminophen 650 MG Tab.ER PO SCH ×2 (08:04→19:31)
[2017-07-31] MEDS: Sertraline 50 MG Tab PO SCH (08:05)
[2017-07-31] MEDS: Zinc (Zinc Gluconate) 50 MG Tab PO SCH (08:05)
[2017-07-31] MEDS: Mupirocin Oint 22 GM Tube TOP SCH ×2 (11:08→19:27)
[2017-07-31] MEDS: Omeprazole 20 MG Cap.CR PO SCH (11:45)
[2017-07-31] MEDS: Losartan 50 MG Tab PO SCH (17:51)
[2017-07-31] MEDS: Isosorbide Mononitrate 60 MG Tab.ER PO SCH (17:52)
[2017-07-31] MEDS: LORazepam 1 MG Tab PO SCH (19:27)
[2017-07-31] MEDS: Lactobacillus Rhamnosus GG (Probiotic) Cap PO SCH (19:28)
[2017-07-31] MEDS: guanFACINE 1 MG Tab PO SCH (19:29)
[2017-07-31] MEDS: Clopidogrel 75 MG Tab PO SCH (19:30)
[2017-07-31] MEDS: Cholecalciferol (Vitamin D3) 1,000 Unit Tab PO SCH (19:31)
[2017-08-01] MEDS: hydrALAZINE 50 MG Tab PO SCH ×3 (05:51→19:04)
[2017-08-01] MEDS: Furosemide 40 MG Tab PO SCH (05:52)
[2017-08-01] MEDS: amLODIPine 5 MG Tab PO SCH ×2 (05:52→17:28)
[2017-08-01] MEDS: Levothyroxine 50 MCG Tab PO SCH (07:48)
[2017-08-01] MEDS: Loratadine 10 MG Tab PO SCH (07:50)
[2017-08-01] MEDS: LORazepam 0.5 MG Tab PO SCH (07:50)
[2017-08-01] MEDS: Polyvinyl Alcohol 1.4% Ophth Soln 15 ML Bottle EYEBOTH SCH ×3 (07:51→17:27)
[2017-08-01] MEDS: Metoprolol Tartrate 25 MG Tab PO SCH ×2 (07:53→19:07)
[2017-08-01] MEDS: Lutein/Minerals/Vitamin C/Vitamin E Acetate Cap PO SCH ×2 (07:55→17:28)
[2017-08-01] MEDS: predniSONE 5 MG Tab PO SCH (07:55)
[2017-08-01] MEDS: Acetaminophen 650 MG Tab.ER PO SCH ×2 (07:56→19:09)
[2017-08-01] MEDS: Zinc (Zinc Gluconate) 50 MG Tab PO SCH (07:57)
[2017-08-01] MEDS: Sertraline 50 MG Tab PO SCH (07:57)
[2017-08-01] MEDS: Mupirocin Oint 22 GM Tube TOP SCH ×2 (09:10→19:06)
[2017-08-01] MEDS: Omeprazole 20 MG Cap.CR PO SCH (11:51)
[2017-08-01] MEDS: Isosorbide Mononitrate 60 MG Tab.ER PO SCH (17:26)
[2017-08-01] MEDS: Losartan 50 MG Tab PO SCH (17:26)
[2017-08-01] MEDS: LORazepam 1 MG Tab PO SCH (19:05)
[2017-08-01] MEDS: Lactobacillus Rhamnosus GG (Probiotic) Cap PO SCH (19:06)
[2017-08-01] MEDS: guanFACINE 1 MG Tab PO SCH (19:07)
[2017-08-01] MEDS: Clopidogrel 75 MG Tab PO SCH (19:09)
[2017-08-01] MEDS: Cholecalciferol (Vitamin D3) 1,000 Unit Tab PO SCH (19:10)
[2017-08-02] MEDS: hydrALAZINE 50 MG Tab PO SCH ×3 (05:57→20:05)
[2017-08-02] MEDS: amLODIPine 5 MG Tab PO SCH ×2 (05:57→17:32)
[2017-08-02] MEDS: Furosemide 40 MG Tab PO SCH (05:57)
[2017-08-02] MEDS: Levothyroxine 50 MCG Tab PO SCH (07:41)
[2017-08-02] MEDS: LORazepam 0.5 MG Tab PO SCH (07:42)
[2017-08-02] MEDS: Loratadine 10 MG Tab PO SCH (07:44)
[2017-08-02] MEDS: Polyvinyl Alcohol 1.4% Ophth Soln 15 ML Bottle EYEBOTH SCH ×3 (07:44→17:30)
[2017-08-02] MEDS: Metoprolol Tartrate 25 MG Tab PO SCH ×2 (07:45→20:13)
[2017-08-02] MEDS: Lutein/Minerals/Vitamin C/Vitamin E Acetate Cap PO SCH ×2 (07:47→17:33)
[2017-08-02] MEDS: predniSONE 5 MG Tab PO SCH (07:47)
[2017-08-02] MEDS: Acetaminophen 650 MG Tab.ER PO SCH ×2 (07:48→20:15)
[2017-08-02] MEDS: Sertraline 50 MG Tab PO SCH (07:49)
[2017-08-02] MEDS: Zinc (Zinc Gluconate) 50 MG Tab PO SCH (07:49)
[2017-08-02] MEDS: Mupirocin Oint 22 GM Tube TOP SCH ×2 (09:04→20:09)
[2017-08-02] MEDS: Omeprazole 20 MG Cap.CR PO SCH (11:59)
[2017-08-02] MEDS: Losartan 50 MG Tab PO SCH (17:31)
[2017-08-02] MEDS: Isosorbide Mononitrate 60 MG Tab.ER PO SCH (17:32)
[2017-08-02] MEDS: LORazepam 1 MG Tab PO SCH (20:08)
[2017-08-02] MEDS: Lactobacillus Rhamnosus GG (Probiotic) Cap PO SCH (20:10)
[2017-08-02] MEDS: guanFACINE 1 MG Tab PO SCH (20:11)
[2017-08-02] MEDS: Clopidogrel 75 MG Tab PO SCH (20:14)
[2017-08-02] MEDS: Cholecalciferol (Vitamin D3) 1,000 Unit Tab PO SCH (20:16)
[2017-08-03] MEDS: amLODIPine 5 MG Tab PO SCH ×2 (07:22→17:24)
[2017-08-03] MEDS: predniSONE 5 MG Tab PO SCH (07:24)
[2017-08-03] MEDS: Sertraline 50 MG Tab PO SCH (07:26)
[2017-08-03] MEDS: Levothyroxine 50 MCG Tab PO SCH (07:27)
[2017-08-03] MEDS: Furosemide 40 MG Tab PO SCH (07:27)
[2017-08-03] MEDS: hydrALAZINE 50 MG Tab PO SCH ×3 (07:28→19:41)
[2017-08-03] MEDS: Metoprolol Tartrate 25 MG Tab PO SCH ×2 (07:29→19:47)
[2017-08-03] MEDS: Loratadine 10 MG Tab PO SCH (07:32)
[2017-08-03] MEDS: Polyvinyl Alcohol 1.4% Ophth Soln 15 ML Bottle EYEBOTH SCH ×3 (07:32→17:22)
[2017-08-03] MEDS: Zinc (Zinc Gluconate) 50 MG Tab PO SCH (07:35)
[2017-08-03] MEDS: Acetaminophen 650 MG Tab.ER PO SCH ×2 (07:36→19:48)
[2017-08-03] MEDS: Lutein/Minerals/Vitamin C/Vitamin E Acetate Cap PO SCH ×2 (07:37→17:24)
[2017-08-03] MEDS: LORazepam 0.5 MG Tab PO SCH (07:38)
[2017-08-03] MEDS: Mupirocin Oint 22 GM Tube TOP SCH ×2 (09:00→19:43)
[2017-08-03] MEDS: Omeprazole 20 MG Cap.CR PO SCH (11:05)
[2017-08-03] MEDS: Isosorbide Mononitrate 60 MG Tab.ER PO SCH (17:25)
[2017-08-03] MEDS: Losartan 50 MG Tab PO SCH (17:26)
--- NOTE | 2017-08-03 19:39 | PCM.PN ---
- General Info Date of Service: 08/03/17 Functional Status: Reports: Pain Controlled, Tolerating Diet, Ambulating - Review of Systems General: Reports: No Symptoms HEENT: Reports: Other (blurred vision not new) Pulmonary: Reports: No Symptoms Cardiovascular: Reports: No Symptoms Gastrointestinal: Reports: No Symptoms Genitourinary: Reports: No Symptoms Musculoskeletal: Reports: No Symptoms Skin: Reports: Other (left lower extremity wound) Neurological: Reports: No Symptoms Psychiatric: Reports: Depression, Anxiety - Patient Data Vitals - Most Recent: Last Vital Signs Temp 99.0 F 08/03/17 16:00 Pulse 74 08/03/17 16:00 Resp 16 08/03/17 16:00 BP 170/62 H 08/03/17 17:26 Pulse Ox 97 08/03/17 16:00 Weight - Most Recent: 175 lb 8 oz I&O - Last 24 Hours: Intake & Output 08/03/17 08/03/17 08/03/17 06:59 14:59 22:59 Intake Total 900 240 Balance 900 240 Med Orders - Current: Current Medications Acetaminophen (Tylenol Arthritis Pain) 1,300 mg PO Q12H REPLACED BY [facility] Last Admin: 08/03/17 07:36 Dose: 1,300 mg Acetaminophen (Tylenol) 650 mg PO Q4H PRN PRN Reason: Pain Last Admin: 07/25/17 16:46 Dose: 650 mg Amlodipine Besylate (Norvasc) 5 mg PO BID@0600,1800 REPLACED BY [facility] Last Admin: 08/03/17 17:24 Dose: 5 mg Artificial Tears (Liquitears 1.4% Ophth Soln) 0 ml EYEBOTH Q1H PRN PRN Reason: Dry Eyes Last Admin: 07/23/17 09:19 Dose: 2 drop Artificial Tears (Liquitears 1.4% Ophth Soln) 0 ml EYEBOTH TID REPLACED BY [facility] Last Admin: 08/03/17 17:22 Dose: 2 drop Cholecalciferol (Vitamin D3) 2,000 units PO BEDTIME REPLACED BY [facility] Last Admin: 08/02/17 20:16 Dose: 2,000 units Clopidogrel Bisulfate (Plavix) 75 mg PO BEDTIME REPLACED BY [facility] Last Admin: 08/02/17 20:14 Dose: 75 mg Coenzyme Q10 (Coenzyme Q10) 100 mg PO BEDTIME REPLACED BY [facility] Last Admin: 08/02/17 20:10 Dose: 100 mg Cyclobenzaprine HCl (Flexeril) 5 mg PO TID PRN PRN Reason: spasms Last Admin: 07/21/17 20:42 Dose: 5 mg Furosemide (Lasix) 40 mg PO DAILY@0600 REPLACED BY [facility] Last Admin: 08/03/17 07:27 Dose: 40 mg Guanfacine HCl (Guanfacine) 1 mg PO BEDTIME REPLACED BY [facility] Last Admin: 08/02/17 20:11 Dose: 1 mg Hydralazine HCl (Apresoline) 100 mg PO TID@0600,1400,2000 REPLACED BY [facility] Last Admin: 08/03/17 14:06 Dose: 100 mg Hydroxyzine HCl (Vistaril) 25 mg IM Q4H PRN PRN Reason: Nausea/Vomiting Isosorbide Mononitrate (Imdur) 60 mg PO DAILY@1800 REPLACED BY [facility] Last Admin: 08/03/17 17:25 Dose: 60 mg Lactobacillus Rhamnosus (Culturelle) 1 cap PO BEDTIME REPLACED BY [facility] Last Admin: 08/02/17 20:10 Dose: 1 cap Levothyroxine Sodium (Synthroid) 50 mcg PO ACBREAKFAST REPLACED BY [facility] Last Admin: 08/03/17 07:27 Dose: 50 mcg Loperamide HCl (Imodium Ad) 2 mg PO Q4H PRN PRN Reason: Diarrhea Last Admin: 07/25/17 20:04 Dose: 2 mg Loratadine (Claritin) 10 mg PO DAILY REPLACED BY [facility] Last Admin: 08/03/17 07:32 Dose: 10 mg Lorazepam (Ativan) 0.5 mg PO DAILY REPLACED BY [facility] Last Admin: 08/03/17 07:38 Dose: 0.5 mg Lorazepam (Ativan) 1 mg PO BEDTIME REPLACED BY [facility] Last Admin: 08/02/17 20:08 Dose: 1 mg Lorazepam (Ativan) 0.5 mg PO Q8H PRN PRN Reason: Anxiety Losartan Potassium (Cozaar) 50 mg PO DAILY@1800 REPLACED BY [facility] Last Admin: 08/03/17 17:26 Dose: 50 mg Metoprolol Tartrate (Lopressor) 12.5 mg PO Q12HR REPLACED BY [facility] Last Admin: 08/03/17 07:29 Dose: 12.5 mg Mupirocin (Bactroban Oint) 0 gm TOP 08,20 REPLACED BY [facility] Last Admin: 08/03/17 09:00 Dose: 1 applic Nitroglycerin (Nitrostat) 0.4 mg SL Q5M PRN PRN Reason: Chest Pain Omeprazole (Omeprazole) 20 mg PO DAILY@1200 REPLACED BY [facility] Last Admin: 08/03/17 11:05 Dose: 20 mg Ondansetron HCl (Zofran Odt) 4 mg PO Q4H PRN PRN Reason: Nausea/Vomiting Oxycodone HCl (Oxycodone) 5 mg PO Q6H PRN PRN Reason: Pain Prednisone (Prednisone) 5 mg PO WITHBREAKFAST REPLACED BY [facility] Last Admin: 08/03/17 07:24 Dose: 5 mg Senna/Docusate Sodium (Senna Plus) 1 tab PO Q48H REPLACED BY [facility] Last Admin: 08/03/17 17:24 Dose: 1 tab Senna/Docusate Sodium (Senna Plus) 1 tab PO DAILY REPLACED BY [facility] Last Admin: 08/03/17 07:35 Dose: 1 tab Sertraline HCl (Zoloft) 50 mg PO DAILY REPLACED BY [facility] Last Admin: 08/03/17 07:26 Dose: 50 mg Vit C/Vit E/Zinc/Copper/Lutein (Ocuvite Lutein) 1 each PO BID REPLACED BY [facility] Last Admin: 08/03/17 17:24 Dose: 1 each Zinc Gluconate (Zinc) 50 mg PO DAILY REPLACED BY [facility] Stop: 09/03/17 08:01 Last Admin: 08/03/17 07:35 Dose: 50 mg Discontinued Medications Amlodipine Besylate (Norvasc) 5 mg PO ONETIME ONE Stop: 07/22/17 08:30 Last Admin: 07/22/17 09:05 Dose: 5 mg Citalopram Hydrobromide (Celexa) 20 mg PO DAILY REPLACED BY [facility] Last Admin: 07/26/17 08:13 Dose: 20 mg Clopidogrel Bisulfate (Plavix) 75 mg PO DAILY REPLACED BY [facility] Last Admin: 07/26/17 08:16 Dose: 75 mg Furosemide (Lasix) 40 mg PO ONETIME ONE Stop: 07/22/17 08:33 Last Admin: 07/22/17 09:06 Dose: 40 mg Hydralazine HCl (Apresoline) 100 mg PO ONETIME ONE Stop: 07/22/17 08:39 Last Admin: 07/22/17 09:06 Dose: 100 mg Isosorbide Mononitrate (Imdur) 60 mg PO Q12H REPLACED BY [facility] Last Admin: 07/26/17 17:37 Dose: 60 mg Isosorbide Mononitrate (Imdur) 60 mg PO ONETIME ONE Stop: 07/22/17 08:40 Last Admin: 07/22/17 09:07 Dose: 60 mg Losartan Potassium (Cozaar) 100 mg PO DAILY@1800 REPLACED BY [facility] Last Admin: 07/26/17 17:36 Dose: 100 mg Multivitamins/Minerals/Vitamin C (Tab-A-Rajat) 1 tab PO DAILY REPLACED BY [facility] Mupirocin (Bactroban Oint) 0 gm TOP 08,20 REPLACED BY [facility] Mupirocin (Bactroban Oint) Confirm Administered Dose 22 gm .ROUTE .STK-MED ONE Stop: 07/23/17 21:54 Last Admin: 07/23/17 22:44 Dose: Not Given Omeprazole (Omeprazole) 20 mg PO DAILY REPLACED BY [facility] Last Admin: 07/26/17 08:16 Dose: 20 mg Ondansetron HCl (Zofran) 4 mg IVPUSH Q4H PRN PRN Reason: Nausea/Vomiting Ondansetron HCl (Zofran) 4 mg IVPUSH Q8H REPLACED BY [facility] Last Admin: 07/23/17 15:07 Dose: 4 mg Sodium Chloride (Saline Flush) 10 ml FLUSH ASDIRECTED PRN PRN Reason: Keep Vein Open Last Admin: 07/23/17 19:58 Dose: 10 ml Sodium Chloride (Saline Flush) 10 ml FLUSH Q12HR REPLACED BY [facility] Last Admin: 07/25/17 07:28 Dose: 10 ml - Exam General: Alert, Cooperative, No Acute Distress HEENT: Pupils Equal, Pupils Reactive, EOMI, Mucous Membr. Moist/[employer] Neck: Trachea Midline, No JVD Lungs: Clear to Auscultation, Normal Respiratory Effort Cardiovascular: Regular Rate, Regular Rhythm GI/Abdominal Exam: Soft, Non-Tender (Female) Exam: Deferred Back Exam: Normal Inspection Extremities: Non-Tender, No Pedal Edema Skin: Warm, Dry, Intact Wound/Incisions: Healing Well, Drainage (decreased), Erythema Improving, Other ( granulation tissue on left lower extremity has reached skin level except in two small areas superior in wound. Large wound ~[id number]) Neurological: No New Focal Deficit Psy/Mental Status: Alert, Anxious, Depressed (less depressed) - Problem List & Annotations (1) Cellulitis SNOMED Code(s): 787214643 Code(s): L03.90 - CELLULITIS, UNSPECIFIED Status: Acute Priority: High Current Visit: No Qualifiers: Site of cellulitis: extremity Site of cellulitis of extremity: lower extremity Laterality: left Qualified Code(s): L03.116 - Cellulitis of left lower limb (2) Depression SNOMED Code(s): 14364087 Code(s): F32.9 - MAJOR DEPRESSIVE DISORDER, SINGLE EPISODE, UNSPECIFIED Status: Acute Priority: Medium Current Visit: No Qualifiers: Depression Type: reactive depression Qualified Code(s): F32.9 - Major depressive disorder, single episode, unspecified (3) Renal insufficiency SNOMED Code(s): 010435939 Code(s): N28.9 - DISORDER OF KIDNEY AND URETER, UNSPECIFIED Status: Acute Current Visit: No (4) Anemia SNOMED Code(s): 684407876 Code(s): D64.9 - ANEMIA, UNSPECIFIED Status: Acute Priority: High Current Visit: No Qualifiers: Anemia type: unspecified type Qualified Code(s): D64.9 - Anemia, unspecified Annotation/Comment:: Hgb 7.2 (5) Anxiety SNOMED Code(s): 36356336 Code(s): F41.9 - ANXIETY DISORDER, UNSPECIFIED Status: Acute Priority: Medium Current Visit: No (6) CHF (congestive heart failure) SNOMED Code(s): 02516743 Code(s): I50.9 - HEART FAILURE, UNSPECIFIED Status: Acute Priority: High Current Visit: No Onset Date: 10/01/16 Qualifiers: Qualified Code(s): I50.43 - Acute on chronic combined systolic (congestive) and diastolic (congestive) heart failure (7) COPD (chronic obstructive pulmonary disease) SNOMED Code(s): 83029151 Code(s): J44.9 - CHRONIC OBSTRUCTIVE PULMONARY DISEASE, UNSPECIFIED Status : Acute Current Visit: No (8) Comfort measures only status SNOMED Code(s): 31695782225751 Code(s): Z51.5 - ENCOUNTER FOR PALLIATIVE CARE Status: Acute Priority: Medium Current Visit: No (9) Dizziness and giddiness SNOMED Code(s): 719413175 Code(s): R42 - DIZZINESS AND GIDDINESS Status: Acute Priority: High Current Visit: No (10) HTN (hypertension) SNOMED Code(s): 09842181 Code(s): I10 - ESSENTIAL (PRIMARY) HYPERTENSION Status: Acute Priority: High Current Visit: No Qualifiers: Hypertension type: essential hypertension (11) Heart disease SNOMED Code(s): 86394937 Code(s): I51.9 - HEART DISEASE, UNSPECIFIED Status: Acute Priority: Medium Current Visit: No Annotation/Comment:: No chest pain or anginal complaints with no significant edema today. Previous echocardiogram and Cardiolite stress test did not indicate any significant cardiac disease with previous history of cardiomegaly likely secondary to her hypertension and only mild history of arrhythmia, including PACs. (12) Hematoma of left lower extremity SNOMED Code(s): 307653867 Code(s): S80.12XA - CONTUSION OF LEFT LOWER LEG, INITIAL ENCOUNTER Status: Acute Priority: High Current Visit: No Qualifiers: Encounter type: subsequent encounter Qualified Code(s): S80.12XD - Contusion of left lower leg, subsequent encounter (13) History of hip replacement SNOMED Code(s): 834200827 Code(s): Z96.649 - PRESENCE OF UNSPECIFIED ARTIFICIAL HIP JOINT Status: Acute Priority: High Current Visit: No Qualifiers: Laterality: left Qualified Code(s): Z96.642 - Presence of left artificial hip joint (14) Hypertension, malignant SNOMED Code(s): 39862696 Code(s): I10 - ESSENTIAL (PRIMARY) HYPERTENSION Status: Acute Priority: High Current Visit: No (15) Hyponatremia SNOMED Code(s): 63268812 Code(s): E87.1 - HYPO-OSMOLALITY AND HYPONATREMIA Status: Acute Priority : High Current Visit: No (16) Hypotension SNOMED Code(s): 57260933 Code(s): I95.9 - HYPOTENSION, UNSPECIFIED Status: Acute Priority: High Current Visit: No (17) Hypothyroidism SNOMED Code(s): 99654798 Code(s): E03.9 - HYPOTHYROIDISM, UNSPECIFIED Status: Acute Current Visit : No (18) Iron deficiency anemia SNOMED Code(s): 11648194 Code(s): D50.9 - IRON DEFICIENCY ANEMIA, UNSPECIFIED Status: Acute Current Visit: No (19) Osteoarthritis SNOMED Code(s): 714466991 Code(s): M19.90 - UNSPECIFIED OSTEOARTHRITIS, UNSPECIFIED SITE Status: Acute Current Visit: No (20) PVC's (premature ventricular contractions) SNOMED Code(s): 68915765 Code(s): I49.3 - VENTRICULAR PREMATURE DEPOLARIZATION Status: Acute Current Visit: No (21) Paroxysmal atrial fibrillation SNOMED Code(s): 872489341 Code(s): I48.0 - PAROXYSMAL ATRIAL FIBRILLATION Status: Acute Priority: Medium Current Visit: No (22) Peptic reflux disease SNOMED Code(s): 27192376 Code(s): K21.9 - GASTRO-ESOPHAGEAL REFLUX DISEASE WITHOUT ESOPHAGITIS Status: Acute Current Visit: No (23) Pulmonary emboli SNOMED Code(s): 03939735 Code(s): I26.99 - OTHER PULMONARY EMBOLISM WITHOUT ACUTE COR PULMONALE Status: Acute Priority: High Current Visit: No (24) 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 SNOMED Code(s): 578021155 Code(s): Z95.5 - PRESENCE OF CORONARY ANGIOPLASTY IMPLANT AND GRAFT Status : Acute Priority: High Current Visit: No (25) Ulcer of left lower extremity SNOMED Code(s): 96988016 Code(s): L97.929 - NON-PRS CHRONIC ULC UNSP PRT OF L LOW LEG W UNSP SEVERITY Status: Acute Priority: High Current Visit: No Qualifiers: Non-pressure ulcer stage: with fat layer exposed Qualified Code(s): L97.922 - Non-pressure chronic ulcer of unspecified part of left lower leg with fat layer exposed (26) Ulcer of left [place] with fat layer exposed SNOMED Code(s): 185958723 Code(s): L97.822 - NON-PRS CHRONIC ULCER OTH PRT L LOW LEG W FAT LAYER EXPOSED Status: Acute Priority: High Current Visit: No (27) Varicose veins of both legs with edema SNOMED Code(s): 22931045 Code(s): I83.893 - VARICOSE VEINS OF BI LOW EXTREM W OTH COMPLICATIONS Status: Acute Priority: High Current Visit: No (28) Weakness generalized SNOMED Code(s): 72004067 Code(s): R53.1 - WEAKNESS Status: Acute Priority: High Current Visit: No (29) Wound SNOMED Code(s): 390637151 Code(s): T14.90 - INJURY, UNSPECIFIED * DO NOT USE * Status: Acute Priority: High Current Visit: No Onset Date: 08/07/14 Annotation/Comment: : Multiple superficial abrasions/lacerations as above not requiring surgical repair. Tetanus booster is up to date. Wound care discussed. Neosporin dressings placed by the nurse (30) Hypothyroidism SNOMED Code(s): 24193674 Code(s): E03.9 - HYPOTHYROIDISM, UNSPECIFIED Status: Chronic Priority: Medium Current Visit: No Annotation/Comment:: Currently under therapy. TSH normal today (31) Mixed anxiety depressive disorder SNOMED Code(s): 385156922 Code(s): F41.8 - OTHER SPECIFIED ANXIETY DISORDERS Status: Chronic Current Visit: No Annotation/Comment:: Stable by patient history with continued close observation by her regular provider (32) Osteoarthritis SNOMED Code(s): 907488165 Code(s): M19.90 - UNSPECIFIED OSTEOARTHRITIS, UNSPECIFIED SITE Status: Chronic Priority: Medium Current Visit: No Annotation/Comment:: Recently under moderate control by patient history with additional history of rheumatoid arthritis, gout, and fibromyalgia. She is on chronic narcotic medication with [place] [facility] [place] by her history. Further medication adjustments by her regular providers depending on her clinical course (33) Peptic reflux disease SNOMED Code(s): 11563486 Code(s): K21.9 - GASTRO-ESOPHAGEAL REFLUX DISEASE WITHOUT ESOPHAGITIS Status: Chronic Priority: Medium Current Visit: No Annotation/Comment:: H. pylori negative today. Currently nonsymptomatic with IV Pepcid given in the emergency room as GI prophylaxis - Problem List Review Problem List Initiated/Reviewed/Updated: Yes - My Orders Last 24 Hours: My Active Orders 08/04/17 05:11 CBC WITH AUTO DIFF [HEME] Routine CMP [COMPREHENSIVE METABOLIC PN,CMP] [CHEM] Routine CRP [C-REACTIVE PROTEIN] [CHEM] Routine - Plan Plan:: 07/21/17 Yehuda Quintana MD 87 yo female large ulcer left lower extremity became infected with MRSA. Labile hypertension. She was hospitalized, treated, improved. Now stable for admission into swing bed for continued treatment/application of complex dressing with prescription medication with aseptic technique with minimal BID dressing change necessary due to copious drainage, monitoring/adjusting blood pressure medications, scheduled IV zofran for nausea/vomiting secondary to IV antibiotics vital sign monitoring for labile/malignant hypertension, monitoring psychiatric condition of depression and anxiety, monitoring of psychiatric medications, care and maintenance of central line and PT-OT for strengthening. 07-30-17 GENESIS Dubose wound examined today. No pain whatsoever. Wound appears clean. Patient says, "I just don't feel right today". Does say she has gotten this fuzzy feeling in her head intermittently for a very long time. Reviewed recent labs. Encouragement offered. Nursing staff and family question whether this wound is at a point where skin grafting could be considered, will consult Dr. Blackman. 08/03/17 Yehuda Quintana MD Overall she is feeling better. The large ulcer left lower extremity has filled in with granulation tissue up to the level of her skin except for 2 very small areas superior in the wound. Drainage has markedly decreased. Minimal pain. No evidence of infection. She has an appointment on August 06 in [place] at wound clinic for consultation. Starting tomorrow will decrease complex dressing with prescription medication with aseptic technique to daily and assess drainage and continued healing. We continue to monitor her blood pressure, pulse and adjusting medications due to labile/malignant blood pressure. She states she is less depressed, (less down in the dumps), and less anxious, and more hopeful now that her leg is finally healing. She is currently on zoloft and lorazepam with no obvious side effects. The PICC is out and she has regained her strength and is capable to do her ADLs.
[2017-08-03] MEDS: LORazepam 1 MG Tab PO SCH (19:42)
[2017-08-03] MEDS: Lactobacillus Rhamnosus GG (Probiotic) Cap PO SCH (19:45)
[2017-08-03] MEDS: guanFACINE 1 MG Tab PO SCH (19:46)
[2017-08-03] MEDS: Clopidogrel 75 MG Tab PO SCH (19:48)
[2017-08-03] MEDS: Cholecalciferol (Vitamin D3) 1,000 Unit Tab PO SCH (19:49)
[2017-08-04] MEDS: hydrALAZINE 50 MG Tab PO SCH ×3 (05:35→19:32)
[2017-08-04] MEDS: amLODIPine 5 MG Tab PO SCH ×2 (05:36→17:48)
[2017-08-04] MEDS: Furosemide 40 MG Tab PO SCH (05:36)
[2017-08-04] MEDS: predniSONE 5 MG Tab PO SCH (07:30)
[2017-08-04] MEDS: Metoprolol Tartrate 25 MG Tab PO SCH ×2 (07:31→19:35)
[2017-08-04] MEDS: Sertraline 50 MG Tab PO SCH (07:31)
[2017-08-04] MEDS: Levothyroxine 50 MCG Tab PO SCH (07:33)
[2017-08-04] MEDS: LORazepam 0.5 MG Tab PO SCH (07:35)
[2017-08-04] MEDS: Mupirocin Oint 22 GM Tube TOP SCH (07:36)
[2017-08-04] MEDS: Loratadine 10 MG Tab PO SCH (07:37)
[2017-08-04] MEDS: Polyvinyl Alcohol 1.4% Ophth Soln 15 ML Bottle EYEBOTH SCH ×3 (07:37→17:47)
[2017-08-04] MEDS: Lutein/Minerals/Vitamin C/Vitamin E Acetate Cap PO SCH ×2 (07:37→17:49)
[2017-08-04] MEDS: Acetaminophen 650 MG Tab.ER PO SCH ×2 (07:38→19:36)
[2017-08-04] MEDS: Zinc (Zinc Gluconate) 50 MG Tab PO SCH (07:39)
[2017-08-04] MEDS: Omeprazole 20 MG Cap.CR PO SCH (11:46)
[2017-08-04] MEDS: Isosorbide Mononitrate 60 MG Tab.ER PO SCH (17:47)
[2017-08-04] MEDS: Losartan 50 MG Tab PO SCH (17:48)
[2017-08-04] MEDS: LORazepam 1 MG Tab PO SCH (19:33)
[2017-08-04] MEDS: Lactobacillus Rhamnosus GG (Probiotic) Cap PO SCH (19:34)
[2017-08-04] MEDS: guanFACINE 1 MG Tab PO SCH (19:34)
[2017-08-04] MEDS: Clopidogrel 75 MG Tab PO SCH (19:36)
[2017-08-04] MEDS: Cholecalciferol (Vitamin D3) 1,000 Unit Tab PO SCH (19:37)
[2017-08-05] MEDS: hydrALAZINE 50 MG Tab PO SCH ×2 (05:42→13:50)
[2017-08-05] MEDS: Furosemide 40 MG Tab PO SCH (05:42)
[2017-08-05] MEDS: amLODIPine 5 MG Tab PO SCH (05:42)
[2017-08-05] MEDS: Levothyroxine 50 MCG Tab PO SCH (07:19)
[2017-08-05] MEDS: Mupirocin Oint 22 GM Tube TOP SCH (07:21)
[2017-08-05] MEDS: LORazepam 0.5 MG Tab PO SCH (07:21)
[2017-08-05] MEDS: Loratadine 10 MG Tab PO SCH (07:22)
[2017-08-05] MEDS: Polyvinyl Alcohol 1.4% Ophth Soln 15 ML Bottle EYEBOTH SCH ×2 (07:22→11:23)
[2017-08-05] MEDS: Metoprolol Tartrate 25 MG Tab PO SCH (07:23)
[2017-08-05] MEDS: Lutein/Minerals/Vitamin C/Vitamin E Acetate Cap PO SCH (07:24)
[2017-08-05] MEDS: predniSONE 5 MG Tab PO SCH (07:25)
[2017-08-05] MEDS: Acetaminophen 650 MG Tab.ER PO SCH (07:25)
[2017-08-05] MEDS: Sertraline 50 MG Tab PO SCH (07:26)
[2017-08-05] MEDS: Zinc (Zinc Gluconate) 50 MG Tab PO SCH (07:26)
[2017-08-05] MEDS: Omeprazole 20 MG Cap.CR PO SCH (11:35)
[2017-08-05 13:25] VITALS: BP 143/66
--- NOTE | 2017-08-05 16:26 | PCM.DCSUM1 ---
Discharge Summary - Discharge Data Discharge Date: 08/05/17 Discharge Disposition: Home, W Home Health Agency 06 Condition: Good - Discharge Diagnosis/Problem(s) (1) Cellulitis SNOMED Code(s): 896861642 ICD Code: L03.90 - CELLULITIS, UNSPECIFIED Status: Acute Priority: High Current Visit: No Qualifiers: Site of cellulitis: extremity Site of cellulitis of extremity: lower extremity Laterality: left Qualified Code(s): L03.116 - Cellulitis of left lower limb (2) Depression SNOMED Code(s): 21146850 ICD Code: F32.9 - MAJOR DEPRESSIVE DISORDER, SINGLE EPISODE, UNSPECIFIED Status: Acute Priority: Medium Current Visit: No Qualifiers: Depression Type: reactive depression Qualified Code(s): F32.9 - Major depressive disorder, single episode, unspecified (3) Renal insufficiency SNOMED Code(s): 938357044 ICD Code: N28.9 - DISORDER OF KIDNEY AND URETER, UNSPECIFIED Status: Acute Current Visit: No (4) Anemia SNOMED Code(s): 416282416 ICD Code: D64.9 - ANEMIA, UNSPECIFIED Status: Acute Priority: High Current Visit: No Problem Details: Hgb 7.2 Qualifiers: Anemia type: unspecified type Qualified Code(s): D64.9 - Anemia, unspecified (5) Anxiety SNOMED Code(s): 38370866 ICD Code: F41.9 - ANXIETY DISORDER, UNSPECIFIED Status: Acute Priority: Medium Current Visit: No (6) CHF (congestive heart failure) SNOMED Code(s): 27320136 ICD Code: I50.9 - HEART FAILURE, UNSPECIFIED Status: Acute Priority: High Current Visit: No Onset Date: 10/01/16 Qualifiers: Qualified Code(s): I50.43 - Acute on chronic combined systolic (congestive) and diastolic (congestive) heart failure (7) COPD (chronic obstructive pulmonary disease) SNOMED Code(s): 35617924 ICD Code: J44.9 - CHRONIC OBSTRUCTIVE PULMONARY DISEASE, UNSPECIFIED Status : Acute Current Visit: No (8) Comfort measures only status SNOMED Code(s): 73169646916483 ICD Code: Z51.5 - ENCOUNTER FOR PALLIATIVE CARE Status: Acute Priority: Medium Current Visit: No (9) Dizziness and giddiness SNOMED Code(s): 092643707 ICD Code: R42 - DIZZINESS AND GIDDINESS Status: Acute Priority: High Current Visit: No (10) HTN (hypertension) SNOMED Code(s): 41827380 ICD Code: I10 - ESSENTIAL (PRIMARY) HYPERTENSION Status: Acute Priority: High Current Visit: No Qualifiers: Hypertension type: essential hypertension (11) Heart disease SNOMED Code(s): 74439734 ICD Code: I51.9 - HEART DISEASE, UNSPECIFIED Status: Acute Priority: Medium Current Visit: No Problem Details: No chest pain or anginal complaints with no significant edema today. Previous echocardiogram and Cardiolite stress test did not indicate any significant cardiac disease with previous history of cardiomegaly likely secondary to her hypertension and only mild history of arrhythmia, including PACs. (12) Hematoma of left lower extremity SNOMED Code(s): 246084623 ICD Code: S80.12XA - CONTUSION OF LEFT LOWER LEG, INITIAL ENCOUNTER Status : Acute Priority: High Current Visit: No Qualifiers: Encounter type: subsequent encounter Qualified Code(s): S80.12XD - Contusion of left lower leg, subsequent encounter (13) History of hip replacement SNOMED Code(s): 839963448 ICD Code: Z96.649 - PRESENCE OF UNSPECIFIED ARTIFICIAL HIP JOINT Status: Acute Priority: High Current Visit: No Qualifiers: Laterality: left Qualified Code(s): Z96.642 - Presence of left artificial hip joint (14) Hypertension, malignant SNOMED Code(s): 62787588 ICD Code: I10 - ESSENTIAL (PRIMARY) HYPERTENSION Status: Acute Priority: High Current Visit: No (15) Hyponatremia SNOMED Code(s): 15136774 ICD Code: E87.1 - HYPO-OSMOLALITY AND HYPONATREMIA Status: Acute Priority : High Current Visit: No (16) Hypotension SNOMED Code(s): 82954900 ICD Code: I95.9 - HYPOTENSION, UNSPECIFIED Status: Acute Priority: High Current Visit: No (17) Hypothyroidism SNOMED Code(s): 26929991 ICD Code: E03.9 - HYPOTHYROIDISM, UNSPECIFIED Status: Acute Current Visit : No (18) Iron deficiency anemia SNOMED Code(s): 46408441 ICD Code: D50.9 - IRON DEFICIENCY ANEMIA, UNSPECIFIED Status: Acute Current Visit: No (19) Osteoarthritis SNOMED Code(s): 656851015 ICD Code: M19.90 - UNSPECIFIED OSTEOARTHRITIS, UNSPECIFIED SITE Status: Acute Current Visit: No (20) PVC's (premature ventricular contractions) SNOMED Code(s): 61340311 ICD Code: I49.3 - VENTRICULAR PREMATURE DEPOLARIZATION Status: Acute Current Visit: No (21) Paroxysmal atrial fibrillation SNOMED Code(s): 356039366 ICD Code: I48.0 - PAROXYSMAL ATRIAL FIBRILLATION Status: Acute Priority: Medium Current Visit: No (22) Peptic reflux disease SNOMED Code(s): 84691226 ICD Code: K21.9 - GASTRO-ESOPHAGEAL REFLUX DISEASE WITHOUT ESOPHAGITIS Status: Acute Current Visit: No (23) Pulmonary emboli SNOMED Code(s): 76430071 ICD Code: I26.99 - OTHER PULMONARY EMBOLISM WITHOUT ACUTE COR PULMONALE Status: Acute Priority: High Current Visit: No (24) 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 SNOMED Code(s): 698966532 ICD Code: Z95.5 - PRESENCE OF CORONARY ANGIOPLASTY IMPLANT AND GRAFT Status : Acute Priority: High Current Visit: No (25) Ulcer of left lower extremity SNOMED Code(s): 26013705 ICD Code: L97.929 - NON-PRS CHRONIC ULC UNSP PRT OF L LOW LEG W UNSP SEVERITY Status: Acute Priority: High Current Visit: No Qualifiers: Non-pressure ulcer stage: with fat layer exposed Qualified Code(s): L97.922 - Non-pressure chronic ulcer of unspecified part of left lower leg with fat layer exposed (26) Ulcer of left [place] with fat layer exposed SNOMED Code(s): 867911872 ICD Code: L97.822 - NON-PRS CHRONIC ULCER OTH PRT L LOW LEG W FAT LAYER EXPOSED Status: Acute Priority: High Current Visit: No (27) Varicose veins of both legs with edema SNOMED Code(s): 02501790 ICD Code: I83.893 - VARICOSE VEINS OF BI LOW EXTREM W OTH COMPLICATIONS Status: Acute Priority: High Current Visit: No (28) Weakness generalized SNOMED Code(s): 27496459 ICD Code: R53.1 - WEAKNESS Status: Acute Priority: High Current Visit: No (29) Wound SNOMED Code(s): 649356627 ICD Code: T14.90 - INJURY, UNSPECIFIED * DO NOT USE * Status: Acute Priority: High Current Visit: No Onset Date: 08/07/14 Problem Details: Multiple superficial abrasions/lacerations as above not requiring surgical repair. Tetanus booster is up to date. Wound care discussed. Neosporin dressings placed by the nurse (30) Hypothyroidism SNOMED Code(s): 22434129 ICD Code: E03.9 - HYPOTHYROIDISM, UNSPECIFIED Status: Chronic Priority: Medium Current Visit: No Problem Details: Currently under therapy. TSH normal today (31) Mixed anxiety depressive disorder SNOMED Code(s): 487513663 ICD Code: F41.8 - OTHER SPECIFIED ANXIETY DISORDERS Status: Chronic Current Visit: No Problem Details: Stable by patient history with continued close observation by her regular provider (32) Osteoarthritis SNOMED Code(s): 776355450 ICD Code: M19.90 - UNSPECIFIED OSTEOARTHRITIS, UNSPECIFIED SITE Status: Chronic Priority: Medium Current Visit: No Problem Details: Recently under moderate control by patient history with additional history of rheumatoid arthritis, gout, and fibromyalgia. She is on chronic narcotic medication with steroid injection received in [facility] yesterday by her history. Further medication adjustments by her regular providers depending on her clinical course (33) Peptic reflux disease SNOMED Code(s): 91295356 ICD Code: K21.9 - GASTRO-ESOPHAGEAL REFLUX DISEASE WITHOUT ESOPHAGITIS Status: Chronic Priority: Medium Current Visit: No Problem Details: H. pylori negative today. Currently nonsymptomatic with IV Pepcid given in the emergency room as GI prophylaxis - Patient Summary/Data Consults: Consultations 07/21/17 16:46 Consult to Case Management [CONS] Routine OT Evaluation and Treatment [CONS] Routine PT Evaluation and Treatment [CONS] Routine 07/21/17 18:15 Consult to Physician [CONS] Routine - Patient Instructions Diet: Usual Diet as Tolerated Activity: As Tolerated Driving: Do Not Drive Showering/Bathing: May Shower Other/Special Instructions: Follow up at [facility] tomorrow as already scheduled at 09:00. Follow up at [facility] as needed. Home Health to follow. Leave dressing to left lower extremity in place until you are seen tomorrow at the wound clinic. Dressing changes to left lower extremity as per recommendations of the wound clinic. - Discharge Plan Prescriptions/Med Rec: amLODIPine Besylate [Amlodipine Besylate] 5 mg PO 0600,1800 #180 tablet Clopidogrel [Plavix] 75 mg PO DAILY #90 tablet Furosemide 40 mg PO DAILY@0600 #90 tablet guanFACINE 1 mg PO BEDTIME #90 tablet hydrALAZINE [Apresoline] 100 mg PO TID@0600,1400,2000 #270 tablet Isosorbide Mononitrate [Imdur] 60 mg PO DAILY@1800 #90 tab.er Loratadine [Claritin] 10 mg PO DAILY #100 tablet Losartan [Cozaar] 50 mg PO DAILY@1800 #90 tablet Metoprolol Tartrate 12.5 mg PO Q12HR@0800,2000 #90 tablet Sertraline [Zoloft] 50 mg PO DAILY #90 tablet Zinc Gluconate [Zinc] 50 mg PO DAILY #30 tablet Home Medications: Home Meds Levothyroxine Sodium [Unithroid] 50 mcg PO DAILY 07/15/16 [History] Multivitamin [Daily Rajat] 1 tab PO DAILY 07/15/16 [History] Nitroglycerin [Nitrostat] 0.4 mg SL Q5M PRN 07/15/16 [History] Cholecalciferol (Vitamin D3) [Vitamin D3] 2,000 unit PO BEDTIME 09/30/16 [ History] Acetaminophen [Tylenol Arthritis] 1,300 mg PO BID 12/05/16 [History] L.acidoph,Paracasei, B.lactis [Probiotic] 1 each PO BEDTIME 12/05/16 [History] Omeprazole Magnesium [Prilosec Otc] 20 mg PO DAILY 12/05/16 [History] Cyclobenzaprine HCl 5 mg PO TID PRN 06/10/17 [History] LORazepam 1 mg PO BEDTIME 06/10/17 [History] LORazepam [Ativan] 0.5 mg PO DAILY 06/10/17 [History] Lutein Extract/Zeaxanthin Ext [Lutein 15 MG Softgel] 1 cap PO BID 06/10/17 [ History] Prednisone [IJP: Prednisone] 5 mg PO DAILY 06/10/17 [History] Sennosides/Docusate Sodium [Senna-S] 1 each PO DAILY 06/10/17 [History] Ubidecarenone [Coenzyme Q10] 100 mg PO BEDTIME 06/10/17 [History] oxyCODONE 5 mg PO Q6HR PRN 06/10/17 [History] Acetaminophen [Tylenol] 650 mg PO Q4HR PRN 07/14/17 [History] Dextran 70/Hypromellose [Artificial Tears] 2 ml OP Q1H PRN 07/14/17 [History] LORazepam [Ativan] 0.5 mg PO Q8HR PRN 07/14/17 [History] Sennosides/Docusate Sodium [Senna Plus Tablet] 1 tab PO Q48H 07/14/17 [History] Clopidogrel [Plavix] 75 mg PO DAILY #90 tablet 08/05/17 [Rx] Furosemide 40 mg PO DAILY@0600 #90 tablet 08/05/17 [Rx] Isosorbide Mononitrate [Imdur] 60 mg PO DAILY@1800 #90 tab.er 08/05/17 [Rx] Loratadine [Claritin] 10 mg PO DAILY #100 tablet 08/05/17 [Rx] Losartan [Cozaar] 50 mg PO DAILY@1800 #90 tablet 08/05/17 [Rx] Metoprolol Tartrate 12.5 mg PO Q12HR@0800,2000 #90 tablet 08/05/17 [Rx] Sertraline [Zoloft] 50 mg PO DAILY #90 tablet 08/05/17 [Rx] Zinc Gluconate [Zinc] 50 mg PO DAILY #30 tablet 08/05/17 [Rx] amLODIPine Besylate [Amlodipine Besylate] 5 mg PO 0600,1800 #180 tablet [Rx] guanFACINE 1 mg PO BEDTIME #90 tablet 08/05/17 [Rx] hydrALAZINE [Apresoline] 100 mg PO TID@0600,1400,2000 #270 tablet 08/05/17 [Rx] Patient Handouts: Wound Infection, [id number], Hypertension, [id number]-[id number], MRSA Infection, Adult - Discharge Summary/Plan Comment DC Time >30 min.: No Discharge Summary/Plan Comment: She has follow up appointment at wound clinic tomorrow [facility]. Home health will follow her and do dressing changes. - Patient Data Vitals - Most Recent: Last Vital Signs Temp 97.7 F 08/05/17 12:00 Pulse 71 08/05/17 12:00 Resp 18 08/05/17 12:00 BP 143/66 H 08/05/17 13:50 Pulse Ox 96 08/05/17 12:00 Weight - Most Recent: 176 lb 14.4 oz I&O - Last 24 hours: Intake & Output 08/05/17 08/05/17 08/05/17 06:59 14:59 22:59 Intake Total 150 900 Balance 150 900 Med Orders - Current: Current Medications Acetaminophen (Tylenol Arthritis Pain) 1,300 mg PO Q12H [facility] Last Admin: 08/05/17 07:25 Dose: 1,300 mg Acetaminophen (Tylenol) 650 mg PO Q4H PRN PRN Reason: Pain Last Admin: 07/25/17 16:46 Dose: 650 mg Amlodipine Besylate (Norvasc) 5 mg PO BID@0600,1800 [facility] Last Admin: 08/05/17 05:42 Dose: 5 mg Artificial Tears (Liquitears 1.4% Ophth Soln) 0 ml EYEBOTH Q1H PRN PRN Reason: Dry Eyes Last Admin: 07/23/17 09:19 Dose: 2 drop Artificial Tears (Liquitears 1.4% Ophth Soln) 0 ml EYEBOTH TID [facility] Last Admin: 08/05/17 11:23 Dose: 2 drop Cholecalciferol (Vitamin D3) 2,000 units PO BEDTIME [facility] Last Admin: 08/04/17 19:37 Dose: 2,000 units Clopidogrel Bisulfate (Plavix) 75 mg PO BEDTIME [facility] Last Admin: 08/04/17 19:36 Dose: 75 mg Coenzyme Q10 (Coenzyme Q10) 100 mg PO BEDTIME [facility] Last Admin: 08/04/17 19:34 Dose: 100 mg Cyclobenzaprine HCl (Flexeril) 5 mg PO TID PRN PRN Reason: spasms Last Admin: 07/21/17 20:42 Dose: 5 mg Furosemide (Lasix) 40 mg PO DAILY@0600 [facility] Last Admin: 08/05/17 05:42 Dose: 40 mg Guanfacine HCl (Guanfacine) 1 mg PO BEDTIME [facility] Last Admin: 08/04/17 19:34 Dose: 1 mg Hydralazine HCl (Apresoline) 100 mg PO TID@0600,1400,2000 [facility] Last Admin: 08/05/17 13:50 Dose: 100 mg Hydroxyzine HCl (Vistaril) 25 mg IM Q4H PRN PRN Reason: Nausea/Vomiting Isosorbide Mononitrate (Imdur) 60 mg PO DAILY@1800 [facility] Last Admin: 08/04/17 17:47 Dose: 60 mg Lactobacillus Rhamnosus (Culturelle) 1 cap PO BEDTIME [facility] Last Admin: 08/04/17 19:34 Dose: 1 cap Levothyroxine Sodium (Synthroid) 50 mcg PO ACBREAKFAST [facility] Last Admin: 08/05/17 07:19 Dose: 50 mcg Loperamide HCl (Imodium Ad) 2 mg PO Q4H PRN PRN Reason: Diarrhea Last Admin: 07/25/17 20:04 Dose: 2 mg Loratadine (Claritin) 10 mg PO DAILY [facility] Last Admin: 08/05/17 07:22 Dose: 10 mg Lorazepam (Ativan) 0.5 mg PO DAILY [facility] Last Admin: 08/05/17 07:21 Dose: 0.5 mg Lorazepam (Ativan) 1 mg PO BEDTIME [facility] Last Admin: 08/04/17 19:33 Dose: 1 mg Lorazepam (Ativan) 0.5 mg PO Q8H PRN PRN Reason: Anxiety Losartan Potassium (Cozaar) 50 mg PO DAILY@1800 [facility] Last Admin: 08/04/17 17:48 Dose: 50 mg Metoprolol Tartrate (Lopressor) 12.5 mg PO Q12HR [facility] Last Admin: 08/05/17 07:23 Dose: 12.5 mg Mupirocin (Bactroban Oint) 0 gm TOP DAILY [facility] Last Admin: 08/05/17 07:21 Dose: 1 applic Nitroglycerin (Nitrostat) 0.4 mg SL Q5M PRN PRN Reason: Chest Pain Omeprazole (Omeprazole) 20 mg PO DAILY@1200 [facility] Last Admin: 08/05/17 11:35 Dose: 20 mg Ondansetron HCl (Zofran Odt) 4 mg PO Q4H PRN PRN Reason: Nausea/Vomiting Oxycodone HCl (Oxycodone) 5 mg PO Q6H PRN PRN Reason: Pain Prednisone (Prednisone) 5 mg PO WITHBREAKFAST [facility] Last Admin: 08/05/17 07:25 Dose: 5 mg Senna/Docusate Sodium (Senna Plus) 1 tab PO Q48H [facility] Last Admin: 08/03/17 17:24 Dose: 1 tab Senna/Docusate Sodium (Senna Plus) 1 tab PO DAILY [facility] Last Admin: 08/05/17 07:25 Dose: 1 tab Sertraline HCl (Zoloft) 50 mg PO DAILY [facility] Last Admin: 08/05/17 07:26 Dose: 50 mg Vit C/Vit E/Zinc/Copper/Lutein (Ocuvite Lutein) 1 each PO BID [facility] Last Admin: 08/05/17 07:24 Dose: 1 each Zinc Gluconate (Zinc) 50 mg PO DAILY [facility] Stop: 09/03/17 08:01 Last Admin: 08/05/17 07:26 Dose: 50 mg Discontinued Medications Amlodipine Besylate (Norvasc) 5 mg PO ONETIME ONE Stop: 07/22/17 08:30 Last Admin: 07/22/17 09:05 Dose: 5 mg Citalopram Hydrobromide (Celexa) 20 mg PO DAILY [facility] Last Admin: 07/26/17 08:13 Dose: 20 mg Clopidogrel Bisulfate (Plavix) 75 mg PO DAILY [facility] Last Admin: 07/26/17 08:16 Dose: 75 mg Furosemide (Lasix) 40 mg PO ONETIME ONE Stop: 07/22/17 08:33 Last Admin: 07/22/17 09:06 Dose: 40 mg Hydralazine HCl (Apresoline) 100 mg PO ONETIME ONE Stop: 07/22/17 08:39 Last Admin: 07/22/17 09:06 Dose: 100 mg Isosorbide Mononitrate (Imdur) 60 mg PO Q12H [facility] Last Admin: 07/26/17 17:37 Dose: 60 mg Isosorbide Mononitrate (Imdur) 60 mg PO ONETIME ONE Stop: 07/22/17 08:40 Last Admin: 07/22/17 09:07 Dose: 60 mg Losartan Potassium (Cozaar) 100 mg PO DAILY@1800 [facility] Last Admin: 07/26/17 17:36 Dose: 100 mg Multivitamins/Minerals/Vitamin C (Tab-A-Rajat) 1 tab PO DAILY [facility] Mupirocin (Bactroban Oint) 0 gm TOP 08,20 [facility] Mupirocin (Bactroban Oint) 0 gm TOP 08,20 [facility] Last Admin: 08/03/17 19:43 Dose: 1 applic Mupirocin (Bactroban Oint) Confirm Administered Dose 22 gm .ROUTE .STK-MED ONE Stop: 07/23/17 21:54 Last Admin: 07/23/17 22:44 Dose: Not Given Omeprazole (Omeprazole) 20 mg PO DAILY [facility] Last Admin: 07/26/17 08:16 Dose: 20 mg Ondansetron HCl (Zofran) 4 mg IVPUSH Q4H PRN PRN Reason: Nausea/Vomiting Ondansetron HCl (Zofran) 4 mg IVPUSH Q8H [facility] Last Admin: 07/23/17 15:07 Dose: 4 mg Sodium Chloride (Saline Flush) 10 ml FLUSH ASDIRECTED PRN PRN Reason: Keep Vein Open Last Admin: 07/23/17 19:58 Dose: 10 ml Sodium Chloride (Saline Flush) 10 ml FLUSH Q12HR [facility] Last Admin: 07/25/17 07:28 Dose: 10 ml *Q Meaningful Use (DIS) - VTE *Q VTE Criteria *Q: VTE Pharmacological Contraindications *Q: Risk of Bleeding - Stroke *Q Stroke Criteria *Q: - AMI *Q AMI Criteria *Q:
== END 2017-08-05 14:15 | disposition home health service (06) | DRG 603 ==
LOC: LL.SWG 19:27
PROVIDERS: ADMIT Family Medicine; ATTEND Family Medicine
DX: L03.116 Cellulitis of left lower limb (principal); I13.0 Hypertensive heart and chronic kidney disease with heart failure and stage 1 through stage 4 chronic kidney disease, or unspecified chronic kidney disease; E87.1 Hypo-osmolality and hyponatremia; N28.9 Disorder of kidney and ureter, unspecified; F41.8 Other specified anxiety disorders; D64.9 Anemia, unspecified; J44.9 Chronic obstructive pulmonary disease, unspecified; Z51.5 Encounter for palliative care; R42 Dizziness and giddiness; I25.10 Atherosclerotic heart disease of native coronary artery without angina pectoris; N18.9 Chronic kidney disease, unspecified; I50.9 Heart failure, unspecified; Z96.649 Presence of unspecified artificial hip joint; E03.9 Hypothyroidism, unspecified; D50.9 Iron deficiency anemia, unspecified; M19.90 Unspecified osteoarthritis, unspecified site; I48.0 Paroxysmal atrial fibrillation; Z86.711 Personal history of pulmonary embolism; Z95.5 Presence of coronary angioplasty implant and graft; R53.1 Weakness; K21.9 Gastro-esophageal reflux disease without esophagitis; K44.9 Diaphragmatic hernia without obstruction or gangrene; G47.33 Obstructive sleep apnea (adult) (pediatric); M79.7 Fibromyalgia; Z86.73 Personal history of transient ischemic attack (TIA), and cerebral infarction without residual deficits; G89.29 Other chronic pain; M54.9 Dorsalgia, unspecified; H40.9 Unspecified glaucoma; H91.93 Unspecified hearing loss, bilateral; Z88.0 Allergy status to penicillin; Z88.2 Allergy status to sulfonamides; Z88.8 Allergy status to other drugs, medicaments and biological substances; Z79.02 Long term (current) use of antithrombotics/antiplatelets; Z79.899 Other long term (current) drug therapy
CPT/HCPCS: 36415; 80048; 80053; 85025; 86140; 97110-GP; 97116-GP; 97161-GP; 97165-GO; 97530-GP; A9270-GY; J2405; J7050

== ENCOUNTER 2017-08-31 11:38 | Emergency (ER) | payer MEDICARE, OTHER ==
[2017-08-31] MEDS ORDERED: Sodium Chloride 0.9% 10 ML Syringe FLUSH PRN (11:48)
--- NOTE | 2017-08-31 11:53 | EDM.PDOC ---
ED HPI GENERAL MEDICAL PROBLEM - General Chief Complaint: Chest Pain Stated Complaint: chest pain Time Seen by Provider: 08/31/17 11:45 Source of Information: Reports: Patient, Family History Limitations: Reports: No Limitations - History of Present Illness INITIAL COMMENTS - FREE TEXT/NARRATIVE: Patient is a 87-year-old female who was brought in by family with chief complaint chest pressure radiating to the jaw just not feeling well patient has history of OR with coronary artery stenting 3 earlier in the year. Patient denies nausea or vomiting Onset: Sudden Duration: Hour(s):, Recurring Location: Reports: Chest Quality: Reports: Pressure Severity: Moderate Improves with: Reports: Rest Worsens with: Reports: None Context: Reports: Other (Chest discomfort) Associated Symptoms: Reports: Chest Pain - Related Data Allergies Allergy/AdvReac Type Severity Reaction Status Date / Time atorvastatin calcium Allergy Lightheaded Verified 08/31/17 11:53 [From Lipitor] ness benzalkonium chloride Allergy Redness Verified 08/31/17 11:53 [From Travatan] celecoxib [From Celebrex] Allergy Change Verified 08/31/17 11:53 Mental Status erythromycin base Allergy Hives Verified 08/31/17 11:53 [Erythromycin Base] iodine Allergy Other Verified 08/31/17 11:53 nifedipine Allergy Swelling Verified 08/31/17 11:53 Penicillins Allergy Swelling Verified 08/31/17 11:53 rofecoxib [From Vioxx] Allergy Change Verified 08/31/17 11:53 Mental Status rosuvastatin calcium Allergy Lightheaded Verified 08/31/17 11:53 [From Crestor] ness sulfamethoxazole Allergy Hives Verified 08/31/17 11:53 [From Sulfamethoprim] travoprost [From Travatan] Allergy Redness Verified 08/31/17 11:53 trimethoprim Allergy Hives Verified 08/31/17 11:53 [From Sulfamethoprim] valdecoxib [From Bextra] Allergy Change Verified 08/31/17 11:53 Mental Status soy Allergy Nausea and Uncoded 08/31/17 11:53 Vomiting Home Meds: Home Meds Levothyroxine Sodium [Unithroid] 50 mcg PO DAILY 07/15/16 [History] Multivitamin [Daily Rajat] 1 tab PO DAILY 07/15/16 [History] Nitroglycerin [Nitrostat] 0.4 mg SL Q5M PRN 07/15/16 [History] Cholecalciferol (Vitamin D3) [Vitamin D3] 2,000 unit PO BEDTIME 09/30/16 [ History] Acetaminophen [Tylenol Arthritis] 1,300 mg PO BID 12/05/16 [History] L.acidoph,Paracasei, B.lactis [Probiotic] 1 each PO BEDTIME 12/05/16 [History] Omeprazole Magnesium [Prilosec Otc] 20 mg PO DAILY 12/05/16 [History] Cyclobenzaprine HCl 5 mg PO TID PRN 06/10/17 [History] LORazepam 1 mg PO BEDTIME 06/10/17 [History] LORazepam [Ativan] 0.5 mg PO DAILY 06/10/17 [History] Lutein Extract/Zeaxanthin Ext [Lutein 15 MG Softgel] 1 cap PO BID 06/10/17 [ History] Prednisone [IJP: Prednisone] 5 mg PO DAILY 06/10/17 [History] Sennosides/Docusate Sodium [Senna-S] 1 each PO DAILY 06/10/17 [History] Ubidecarenone [Coenzyme Q10] 100 mg PO BEDTIME 06/10/17 [History] oxyCODONE 5 mg PO Q6HR PRN 06/10/17 [History] Acetaminophen [Tylenol] 650 mg PO Q4HR PRN 07/14/17 [History] Dextran 70/Hypromellose [Artificial Tears] 2 ml OP Q1H PRN 07/14/17 [History] LORazepam [Ativan] 0.5 mg PO Q8HR PRN 07/14/17 [History] Sennosides/Docusate Sodium [Senna Plus Tablet] 1 tab PO Q48H 07/14/17 [History] Clopidogrel [Plavix] 75 mg PO DAILY #90 tablet 08/05/17 [Rx] Furosemide 40 mg PO DAILY@0600 #90 tablet 08/05/17 [Rx] Isosorbide Mononitrate [Imdur] 60 mg PO DAILY@1800 #90 tab.er 08/05/17 [Rx] Loratadine [Claritin] 10 mg PO DAILY #100 tablet 08/05/17 [Rx] Losartan [Cozaar] 50 mg PO DAILY@1800 #90 tablet 08/05/17 [Rx] Metoprolol Tartrate 12.5 mg PO Q12HR@0800,2000 #90 tablet 08/05/17 [Rx] Sertraline [Zoloft] 50 mg PO DAILY #90 tablet 08/05/17 [Rx] Zinc Gluconate [Zinc] 50 mg PO DAILY #30 tablet 08/05/17 [Rx] amLODIPine Besylate [Amlodipine Besylate] 5 mg PO 0600,1800 #180 tablet [Rx] guanFACINE 1 mg PO BEDTIME #90 tablet 08/05/17 [Rx] hydrALAZINE [Apresoline] 100 mg PO TID@0600,1400,2000 #270 tablet 08/05/17 [Rx] Past Medical History HEENT History: Reports: Allergic Rhinitis, Cataract, Glaucoma, Hard of Hearing, Impaired Vision, Other (See Below) Other HEENT History: Patient wears trifocals, bilateral hearing aides Cardiovascular History: Reports: Afib, Arrhythmia, Blood Clots/VTE/DVT, CAD, Cardiomyopathy, Heart Failure, Heart Murmur, High Cholesterol, Hypertension, PVD , Other (See Below) Other Cardiovascular History: First degree A-V block, PVCs, PACs, distant brief atrial fibrillation, patient denies previous OR despite medical records, grade 2 diastolic dysfunction, moderate left ventricular hypertrophy and left atrial enlargement by echocardiogram, mild pulmonary valve insufficiency and mild to moderate tricuspid valve insufficiency with additional mild mitral valve insufficiency by echocardiogram, mild aortic valve sclerosis without stenosis, mild carotid occlusive, history of superficial thrombophlebitis and varicose veins, DVT of the proximal left femoral vein on 08/09/15 with right-sided PE on 05/08/16 and current warfarin therapy Respiratory History: Reports: COPD, Intubation, Previous, PE, Sleep Apnea, SOB, Other (See Below) Other Respiratory History: Patient does use CPAP for her moderate to severe obstructive sleep apnea with previous history of nocturnal hypoxemia, PE as above, benign pulmonary nodules with previous left apical benign granuloma by CT scan on 05/08/16, COPD by chest x-ray with no medical therapy Gastrointestinal History: Reports: Chronic Constipation, Diverticulosis, GERD, Hiatal Hernia, Other (See Below) Other Gastrointestinal History: Probable benign right hepatic mass at about 2.[address] scan on 08/11/16, Benign hepatic cysts by CT scan on 02/18/16, fatty liver secondary to hyperlipidemia Genitourinary History: Reports: Chronic Renal Insuffiency, Renal Disease, Urinary Incontinence, Other (See Below) Other Genitourinary History: kidney disease stage 3, bilateral benign renal cysts [employer]ATING [employer] History: Reports: Dysfunctional Uterine Bleeding, Fibroids, Other OB/BYN History: surgical menopause Musculoskeletal History: Reports: Arthritis, Back Pain, Chronic, Fibromyalgia, Gout, Neck Pain, Chronic, Osteoarthritis, Osteoporosis, RA Neurological History: Reports: CVA, Headaches, Chronic, Migraines, Other (See Below) Other Neuro History: 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, ambulates with a cane currently, history of distant migraine headaches nonproblematic at this time Psychiatric History: Reports: Addiction, Anxiety, Depression, Other (See Below) Other Psychiatric History: Chronic narcotic use secondary to her fibromyalgia and arthritis Endocrine/Metabolic History: Reports: Hypothyroidism, Osteoporosis, Other (See Below) Other Endocrine/Metabolic History: Hyponatremia secondary to CHF Hematologic History: Reports: Anemia, Blood Transfusion(s), Iron Deficiency, Other (See Below) Other Hematologic History: 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 with transfusion required Immunologic History: Reports: None Oncologic (Cancer) History: Reports: None Dermatologic History: Reports: Other (See Below) Other Dermatologic History: Actinic keratosis of the nose previously treated - Infectious Disease History Infectious Disease History: Reports: Chicken Pox, Measles, Mumps, Shingles - Past Surgical History Head Surgeries/Procedures: Reports: None HEENT Surgical History: Reports: Cataract Surgery, Oral Surgery Cardiovascular Surgical History: Reports: Varicose, Vascular Surgery GI Surgical History: Reports: Appendectomy, Colonoscopy Female Surgical History: Reports: Breast Biopsy, Hysterectomy, Salpingo- Oophorectomy Musculoskeletal Surgical History: Reports: Arthroscopic Knee, Arthroscopic Procedure, Carpal Tunnel, Hip Replacement, Joint Replacement Oncologic Surgical History: Reports: Biopsy of Breast - Past Imaging History Past Imaging History: Reports: Angiography, Cardiac Echo, Carotid US, CAT Scan, Mammogram, MRI, Sleep Study, Stress Testing, Ultrasound, Venous Doppler Social & Family History - Family History HEENT: Reports: Allergic Rhinitis, Retinal Detachment, Other (See Below) Other HEENT Family History: Daughter with retinal detachment Cardiac: Reports: Bypass, CAD, Heart Murmur, Heart Valve Replacement, High Cholesterol, Hypertension, OR, PVD/COD, Other (See Below) Other Cardiac Family History: Son with mechanical valve replacement and CABG x1 at about age 62, son also - also suffers from hypertension and hyperlipidemia, son with agent orange exposure Respiratory: Reports: None GI: Reports: Celiac Disease, Other (See Below) Other GI Family History: Daughter with celiac disease : Reports: Renal Disease/Insufficiency, Other (See Below) Other Family History: Mother with end-stage renal disease OBGYN: Reports: None Musculoskeletal: Reports: None Neurological: Reports: Migraines, Seizure, Other (See Below) Other Neurological Family History: Granddaughter with seizures at age 19, 2 granddaughters with migraine headaches Psychiatric: Reports: Anxiety, Depression, Other (See Below) Other Psychiatric Family History: Son with anxiety depression disorder Endocrine/Metabolic: Reports: None Hematologic: Reports: None Immunologic: Reports: None Dermatologic: Reports: Psoriasis, Other (See Below) Other Dermatologic Family History: Daughter with psoriasis Oncologic: Reports: Bone, Esophageal, Metastatic, Other (See Below) Other Oncologic Family History: Sister with possible bone cancer fatal at age 18 , sister with fatal throat cancer in her 60s, sister with fatal vaginal cancer in her 60s, father with fatal throat cancer with pulmonary metastases at age 77 - Tobacco Use Smoking Status *Q: Never Smoker Second Hand Smoke Exposure: No - Caffeine Use Caffeine Use: Reports: Coffee, Soda, Tea - Alcohol Use Days Per Week of Alcohol Use: 0 (No previous DWIs, problems with alcohol abuse, etc.) Number of Drinks Per Day: 1 (Usually occasional beer or wine once per month) Total Drinks Per Week: 0 - Recreational Drug Use Recreational Drug Use: No Drug Use in Last 12 Months: No - Living Situation & Occupation Living situation: Reports: , Alone Occupation: Retired ED ROS GENERAL - Review of Systems Review Of Systems: See Below Constitutional: Reports: Weakness HEENT: Reports: No Symptoms Respiratory: Reports: No Symptoms Cardiovascular: Reports: Chest Pain (Described as chest pressure or heaviness radiating to the neck), Lightheadedness GI/Abdominal: Reports: No Symptoms : Reports: No Symptoms Musculoskeletal: Reports: No Symptoms Skin: Reports: No Symptoms Neurological: Reports: No Symptoms Psychiatric: Reports: No Symptoms Hematologic/Lymphatic: Reports: No Symptoms Immunologic: Reports: No Symptoms ED EXAM, GENERAL - Physical Exam Exam: See Below Exam Limited By: No Limitations General Appearance: Alert, WD/WN, Mild Distress Eye Exam: Bilateral Eye: EOMI, PERRL Ears: Normal External Exam, Normal Canal, Hearing Grossly Normal, Normal TMs Nose: Normal Inspection, Normal Mucosa, No Blood Throat/Mouth: Normal Inspection, Normal Lips, Normal Teeth, Normal Gums, Normal Oropharynx, Normal Voice, No Airway Compromise Head: Atraumatic, Normocephalic Neck: Normal Inspection, Supple, Non-Tender, Full Range of Motion Respiratory/Chest: No Respiratory Distress, Lungs Clear, Normal Breath Sounds, No Accessory Muscle Use, Chest Non-Tender Cardiovascular: Normal Peripheral Pulses, Regular Rate, Rhythm, No Edema, No Gallop, No JVD, No Murmur, No Rub GI/Abdominal: Normal Bowel Sounds, Soft, Non-Tender, No Organomegaly, No Distention, No Abnormal Bruit, No Mass Rectal (Female) Exam: Deferred Psychiatric: Normal Affect, Normal Mood Skin Exam: Warm, Dry, Intact, Normal Color, No Rash Lymphatic: No Adenopathy Course - Vital Signs Last Recorded V/S: Last Vital Signs Temp 97.2 F 08/31/17 11:45 Pulse 62 08/31/17 11:45 Resp 17 08/31/17 11:45 BP 168/83 H 08/31/17 11:45 Pulse Ox 98 08/31/17 11:45 - Orders/Labs/Meds Orders: Active Orders 24 hr Category Date Time Status EKG Documentation Completion [RC] ASDIRECTED Care 08/31/17 11:50 Active Pulse Oximetry [RC] CONTINUOUS Care 08/31/17 11:49 Active Chest 1V Frontal [CR] Stat Exams 08/31/17 11:48 Taken Heparin Sodium/D5W [Heparin 25,000 Units in D5W 500 ML] Med 08/31/17 13:45 Active 25,000 units in 500 ml IV TITRATE Sodium Chloride 0.9% [Saline Flush] Med 08/31/17 11:48 Active 10 ml FLUSH ASDIRECTED PRN Saline Lock Insert [OM.PC] Stat Oth 08/31/17 11:49 Ordered Medication Orders Heparin Sodium/Dextrose (Heparin 25,000 Units In D5w 500 Ml) 25,000 units in 500 mls @ 19.2 mls/hr IV TITRATE NIKITA; Protocol Last Admin: 08/31/17 14:37 Dose: 12 units/kg/hr, 19.2 mls/hr Sodium Chloride (Saline Flush) 10 ml FLUSH ASDIRECTED PRN PRN Reason: Keep Vein Open Last Admin: 08/31/17 14:28 Dose: 10 ml Labs: Laboratory Tests 08/31/17 08/31/17 08/31/17 Range/Units 11:46 11:46 11:46 WBC 9.0 (4.0-10.2) K/uL RBC 3.63 L (3.77-5.09) M/uL Hgb 10.5 L (11.7-15.5) g/dL Hct 32.0 L (34.0-46.0) % MCV 88.2 (84.0-98.0) fL MCH 28.9 (28.2-33.3) pg MCHC 32.8 (31.7-36.0) g/dL RDW 16.1 H (11.2-14.1) % Plt Count 269 (150-350) K/uL Neut % (Auto) 77.8 (45.0-80.0) % Lymph % (Auto) 12.9 (10.0-50.0) % [place] % (Auto) 8.0 (2.0-14.0) % Eos % (Auto) 0.9 (0.0-5.0) % Baso % (Auto) 0.4 (0.0-2.0) % Neut # (Auto) 6.97 (1.40-7.00) K/uL Lymph # (Auto) 1.16 (0.50-3.50) K/uL [place] # (Auto) 0.72 (0.00-1.00) K/uL Eos # (Auto) 0.08 (0.00-0.50) K/uL Baso # (Auto) 0.04 (0.00-0.20) K/uL PT 16.3 H D (9.8-11.7) SEC INR 1.5 D-Dimer, Quantitative (0-400) ng/mL Sodium 138 (136-145) mmol/L Potassium 4.3 (3.5-5.1) mmol/L Chloride 102 (98-107) mmol/L Carbon Dioxide 27.7 (21.0-32.0) mmol/L BUN 38 H (7-18) mg/dL Creatinine 1.35 H (0.51-1.17) mg/dL Est Cr Clr Drug Dosing TNP Estimated GFR (MDRD) 37 mL/min Glucose 108 H (74-106) mg/dL Lactic Acid (0.4-2.0) mmol/L Calcium 8.7 (8.5-10.1) mg/dL Total Bilirubin 0.4 (0.2-1.0) mg/dL AST 17 (15-37) U/L ALT 13 (12-78) U/L Alkaline Phosphatase 65 (46-116) IU/L Troponin I 0.086 H* (0.000-0.056) ng/mL Total Protein 6.9 (6.4-8.2) g/dL Albumin 3.6 (3.4-5.0) g/dL 08/31/17 08/31/17 Range/Units 11:46 11:46 WBC (4.0-10.2) K/uL RBC (3.77-5.09) M/uL Hgb (11.7-15.5) g/dL Hct (34.0-46.0) % MCV (84.0-98.0) fL MCH (28.2-33.3) pg MCHC (31.7-36.0) g/dL RDW (11.2-14.1) % Plt Count (150-350) K/uL Neut % (Auto) (45.0-80.0) % Lymph % (Auto) (10.0-50.0) % [place] % (Auto) (2.0-14.0) % Eos % (Auto) (0.0-5.0) % Baso % (Auto) (0.0-2.0) % Neut # (Auto) (1.40-7.00) K/uL Lymph # (Auto) (0.50-3.50) K/uL [place] # (Auto) (0.00-1.00) K/uL Eos # (Auto) (0.00-0.50) K/uL Baso # (Auto) (0.00-0.20) K/uL PT (9.8-11.7) SEC INR D-Dimer, Quantitative 581 H (0-400) ng/mL Sodium (136-145) mmol/L Potassium (3.5-5.1) mmol/L Chloride (98-107) mmol/L Carbon Dioxide (21.0-32.0) mmol/L BUN (7-18) mg/dL Creatinine (0.51-1.17) mg/dL Est Cr Clr Drug Dosing Estimated GFR (MDRD) mL/min Glucose (74-106) mg/dL Lactic Acid 0.9 (0.4-2.0) mmol/L Calcium (8.5-10.1) mg/dL Total Bilirubin (0.2-1.0) mg/dL AST (15-37) U/L ALT (12-78) U/L Alkaline Phosphatase (46-116) IU/L Troponin I (0.000-0.056) ng/mL Total Protein (6.4-8.2) g/dL Albumin (3.4-5.0) g/dL Meds: Medications Generic Name Dose Route Start Last Admin Trade Name Freq PRN Reason Stop Dose Admin Heparin Sodium/Dextrose 25,000 units in 500 mls @ 19.2 mls/hr 08/31/17 13:45 08/31/17 14:37 Heparin 25,000 Units In D5w 500 Ml IV 12 units/kg/hr TITRATE NIKITA 19.2 mls/hr Administration Protocol 12 UNITS/KG/HR Sodium Chloride 10 ml 08/31/17 11:48 08/31/17 14:28 Saline Flush FLUSH 10 ml ASDIRECTED PRN Administration Keep Vein Open Discontinued Medications Generic Name Dose Route Start Last Admin Trade Name Freq PRN Reason Stop Dose Admin Aspirin Confirm 08/31/17 13:16 08/31/17 14:27 Aspirin Administered 08/31/17 13:17 Not Given Dose 324 mg .ROUTE .STK-MED ONE Aspirin 324 mg 08/31/17 13:19 08/31/17 14:27 Aspirin PO 08/31/17 13:20 324 mg ONETIME ONE Administration Heparin Sodium (Porcine) 4,000 units 08/31/17 13:41 08/31/17 14:27 Heparin Sodium IVPUSH 08/31/17 13:42 4,000 units .BOLUS ONE Administration Departure - Departure Time of Disposition: 15:08 Disposition: DC/Tfer to Acute Hospital 02 Reason for Transfer *Q: Other (Acute OR) Condition: Fair Clinical Impression: Acute coronary syndrome Referrals: Kathleen Rizo MD [Primary Care Provider] - Forms: ED Department Discharge Care Plan Goals: Patient was seen in the ER elevated troponins discuss with hospitalist and cardiology was a septated we'll go ahead and transfer to [place] - My Orders Last 24 Hours: My Active Orders 08/31/17 11:48 Chest 1V Frontal [CR] Stat Sodium Chloride 0.9% [Saline Flush] 10 ml FLUSH ASDIRECTED PRN 08/31/17 11:49 Pulse Oximetry [RC] CONTINUOUS Saline Lock Insert [OM.PC] Stat 08/31/17 11:50 EKG Documentation Completion [RC] ASDIRECTED 08/31/17 13:45 Heparin Sodium/D5W [Heparin 25,000 Units in D5W 500 ML] 25,000 units in 500 ml IV TITRATE - Assessment/Plan Last 24 Hours: My Active Orders 08/31/17 11:48 Chest 1V Frontal [CR] Stat Sodium Chloride 0.9% [Saline Flush] 10 ml FLUSH ASDIRECTED PRN 08/31/17 11:49 Pulse Oximetry [RC] CONTINUOUS Saline Lock Insert [OM.PC] Stat 08/31/17 11:50 EKG Documentation Completion [RC] ASDIRECTED 08/31/17 13:45 Heparin Sodium/D5W [Heparin 25,000 Units in D5W 500 ML] 25,000 units in 500 ml IV TITRATE
[2017-08-31 12:13] LABS: CHLORIDE,CL 102 mmol/L (98-107); SODIUM,NA 138 mmol/L (136-145)
[2017-08-31] MEDS ORDERED: Aspirin 81 MG Tab.Chew ONE (13:16)
[2017-08-31] MEDS ORDERED: Aspirin 81 MG Tab.Chew PO ONE (13:19)
[2017-08-31] MEDS ORDERED: Heparin Sodium 5,000 Units/ML Vial IVPUSH ONE (13:41)
[2017-08-31] MEDS ORDERED: Heparin Sodium/D5W 25,000 UNITS/500 ML BAG IV SCH (13:45)
[2017-08-31 17:44] VITALS: BP 143/51
== END 2017-08-31 15:15 ==
LOC: LL.ED 11:38
DX: I24.9 Acute ischemic heart disease, unspecified (principal); I13.0 Hypertensive heart and chronic kidney disease with heart failure and stage 1 through stage 4 chronic kidney disease, or unspecified chronic kidney disease; I50.9 Heart failure, unspecified; J44.9 Chronic obstructive pulmonary disease, unspecified; N18.3 Chronic kidney disease, stage 3 (moderate); Z88.8 Allergy status to other drugs, medicaments and biological substances; Z88.1 Allergy status to other antibiotic agents; Z88.0 Allergy status to penicillin; Z91.018 Allergy to other foods; Z79.899 Other long term (current) drug therapy
CPT/HCPCS: 36415; 71045; 80053; 83605; 84484; 85025; 85379; 85610; 93005; 96365; 96376; 99285; A9270; J1644; J7050

== ENCOUNTER 2018-07-01 19:01 | Observation (INO) | payer MEDICARE, OTHER ==
[2018-07-01] MEDS ORDERED: Famotidine 20 MG/2 ML SDV IVPUSH ONE (19:24)
[2018-07-01] MEDS ORDERED: Aspirin 81 MG Tab.Chew CHEW ONE (19:24)
--- NOTE | 2018-07-01 19:24 | EDM.PDOC ---
ED HPI GENERAL MEDICAL PROBLEM - General Chief Complaint: General Stated Complaint: high blood pressure Time Seen by Provider: 07/01/18 19:20 Source of Information: Reports: Patient, Family (Granddaughter, Pippa), Old Records (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 Note that the patient has had problems in the past, including multiple recurrent episodes of hypertensive crises with recent systolic blood pressures averaging in the 150s by patient history. At about 5 PM this afternoon the patient had a blood pressure of 215/80 with ambulance called at that time. The patient apparently had multiple medication changes after her previous PTCA/ stent in April 2017, however no recent history of medication changes, medication noncompliance, etc. She has not yet taken her evening medications to this point. The patient denies any chest pain/pressure, heart flutter, orthostasis, orthopnea, diaphoresis, paresthesias, recent decreased exercise tolerance, or any other anginal-type symptoms. No recent history of abdominal pain, heartburn, nausea, diarrhea, melena, gross hematochezia, or any food intolerance, including fatty foods, etc. with normal bowel movement earlier today. She denies any gross hematuria, colic, or other UTI symptoms. The patient also denies any recent fever, cough, wheezing, dyspnea, etc., including no recent use of OTC cold preparations, etc.. She did recently complete antibiotics for an unknown infection about one week ago. No history of recent headaches, visual changes, diplopia, change in mental status, or other change in neurological status. The patient does suffer from chronic dizziness over the last couple of years especially when she turns her head to the left. She denies any pain or discomfort Onset: Today, Gradual Onset Date: 07/01/18 Onset Time: 17:00 Duration: Intermittent Location: Reports: Other (No pain). Denies: Head, Face, Neck, Chest, Abdomen, Back, Upper Extremity, Left, Upper Extremity, Right, Radiates to Quality: Reports: Same as Previous Episode Improves with: Reports: None Worsens with: Reports: None Context: Reports: Other (As above). Denies: Sick Contact, Trauma Associated Symptoms: Denies: Confusion, Chest Pain, Cough, Diaphoresis, Fever/ Chills, Headaches, Loss of Appetite, Malaise, Nausea/Vomiting, Seizure, Shortness of Breath, Syncope, Weakness Treatments DIRECTOR OF ACCOUNTS RECEIVABLE: Reports: Other (see below) (None) - Related Data Allergies Allergy/AdvReac Type Severity Reaction Status Date / Time atorvastatin calcium Allergy Lightheaded Verified 07/01/18 19:08 [From Lipitor] ness benzalkonium chloride Allergy Redness Verified 07/01/18 19:08 [From Travatan] celecoxib [From Celebrex] Allergy Change Verified 07/01/18 19:08 Mental Status erythromycin base Allergy Hives Verified 07/01/18 19:08 [Erythromycin Base] iodine Allergy Other Verified 07/01/18 19:08 nifedipine Allergy Swelling Verified 07/01/18 19:08 Penicillins Allergy Swelling Verified 07/01/18 19:08 rofecoxib [From Vioxx] Allergy Change Verified 07/01/18 19:08 Mental Status rosuvastatin calcium Allergy Lightheaded Verified 07/01/18 19:08 [From Crestor] ness sulfamethoxazole Allergy Hives Verified 07/01/18 19:08 [From Sulfamethoprim] travoprost [From Travatan] Allergy Redness Verified 07/01/18 19:08 trimethoprim Allergy Hives Verified 07/01/18 19:08 [From Sulfamethoprim] valdecoxib [From Bextra] Allergy Change Verified 07/01/18 19:08 Mental Status soy Allergy Nausea and Uncoded 07/01/18 19:08 Vomiting Home Meds: Home Meds Levothyroxine Sodium [Unithroid] 50 mcg PO DAILY 07/15/16 [History] Multivitamin [Daily Rajat] 1 tab PO DAILY 07/15/16 [History] Nitroglycerin [Nitrostat] 0.4 mg SL Q5M PRN 07/15/16 [History] Cholecalciferol (Vitamin D3) [Vitamin D3] 2,000 unit PO BEDTIME 09/30/16 [ History] Acetaminophen [Tylenol Arthritis] 1,300 mg PO BID 12/05/16 [History] L.acidoph,Paracasei, B.lactis [Probiotic] 1 each PO BEDTIME 12/05/16 [History] LORazepam 1 mg PO BEDTIME 06/10/17 [History] LORazepam [Ativan] 0.5 mg PO DAILY 06/10/17 [History] Lutein Extract/Zeaxanthin Ext [Lutein 15 MG Softgel] 1 cap PO BID 06/10/17 [ History] Prednisone [IJP: Prednisone] 5 mg PO DAILY 06/10/17 [History] Sennosides/Docusate Sodium [Senna-S] 1 each PO BID 06/10/17 [History] Dextran 70/Hypromellose [Artificial Tears] 2 ml OP Q1H PRN 07/14/17 [History] LORazepam [Ativan] 0.5 mg PO Q8HR PRN 07/14/17 [History] Clopidogrel [Plavix] 75 mg PO DAILY #90 tablet 08/05/17 [Rx] Metoprolol Tartrate 12.5 mg PO Q12HR@0800,2000 #90 tablet 08/05/17 [Rx] Sertraline [Zoloft] 50 mg PO DAILY #90 tablet 08/05/17 [Rx] Aspirin [Adult Low Dose Aspirin EC] 81 mg PO DAILY 07/01/18 [History] Warfarin Sodium 1 tab PO ASDIRECTED 07/01/18 [History] amLODIPine Besylate [Amlodipine Besylate] 10 mg PO 1800 07/01/18 [History] Past Medical History HEENT History: Reports: Allergic Rhinitis, Cataract, Glaucoma, Hard of Hearing, Impaired Vision, Other (See Below). Denies: Macular Degeneration, Retinal Detachment Other HEENT History: Patient wears trifocals, bilateral hearing aides with mildly suboptimal therapy. Cardiovascular History: Reports: Afib, Arrhythmia, Blood Clots/VTE/DVT, CAD, Cardiomyopathy, Heart Failure, Heart Murmur, High Cholesterol, Hypertension, PVD , Syncope, Other (See Below) Other Cardiovascular History: First degree A-V block, PVCs, PACs, distant brief atrial fibrillation. Non-STEMI on 05/11/17 secondary syncope requiring procedures as below. Patient denies previous NC despite medical records; grade 2 diastolic dysfunction, moderate left ventricular hypertrophy and left atrial enlargement by echocardiogram, mild pulmonary valve insufficiency and mild to moderate tricuspid valve insufficiency with additional mild mitral valve insufficiency by echocardiogram, mild aortic valve sclerosis without stenosis, mild carotid occlusive, history of superficial thrombophlebitis and varicose veins, DVT of the proximal left femoral vein on 3/4/16 with right-sided PE on and current warfarin therapy. Right renal artery stenosis as below. Varicose veins. Respiratory History: Reports: Bronchitis, Recurrent, COPD, Intubation, Previous , PE, Sleep Apnea, SOB, Other (See Below). Denies: Asthma, Intubation, Difficult, Pneumothorax, TB Other Respiratory History: Patient does use CPAP for her moderate to severe obstructive sleep apnea with previous history of nocturnal hypoxemia, PE as above, benign pulmonary nodules with previous left apical benign granuloma by CT scan on 05/08/16, COPD by chest x-ray with no medical therapy Gastrointestinal History: Reports: Chronic Constipation, Diverticulosis, GERD, Hiatal Hernia, Other (See Below). Denies: Celiac Disease, Cholelithiasis, Colon Polyp, Fecal Incontinence, Gastritis, GI Bleed, Hepatitis, Inflammatory Bowel Disease, Irritable Bowel Syndrome, Jaundice, Pancreatitis, PUD Other Gastrointestinal History: Probable benign right hepatic mass at about 2.[address] scan on 08/11/16, Benign hepatic cysts by CT scan on 02/18/16, fatty liver secondary to hyperlipidemia and small hiatal hernia by CT scan. Genitourinary History: Reports: Chronic Renal Insuffiency, Renal Disease, Urinary Incontinence, Other (See Below). Denies: Acute Renal Failure, Renal Calculus, STD Other Genitourinary History: kidney disease stage 3, bilateral benign renal cysts. History of left renal artery stenosis requiring stent placement as below. COMMERCIAL TECHNICIAN History: Reports: Dysfunctional Uterine Bleeding, Fibroids, : 2 Para: 2 Other COMMERCIAL TECHNICIAN History: Full term without complications during pregnancies or deliveries. Surgical menopause as below. Musculoskeletal History: Reports: Arthritis, Back Pain, Chronic, Fibromyalgia, Gout, Neck Pain, Chronic, Osteoarthritis, Osteoporosis, RA. Denies: Amputation , Fracture, SLE Neurological History: Reports: CVA, Headaches, Chronic, Migraines, Other (See Below). 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 Denies: Abuse, Victim of, ADD, ADHD, Alzheimers Disease, Psych Hospitalization(s), Psychosis, PTSD, Suicide Attempt, Suicidal Ideation Other Psychiatric History: Previous Chronic narcotic use secondary to her fibromyalgia and arthritis. Endocrine/Metabolic History: Reports: Hypothyroidism, Osteopenia, Osteoporosis, Other (See Below). 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 Denies: AIDS, HIV, SLE Other Immunologic History: Immunosuppression secondary to chronic steroid therapy. Oncologic (Cancer) History: Reports: None. Denies: Basal Cell Carcinoma, Bladder, Breast, Cervix, Colon, Hodgkin's Lymphoma, Leukemia, Lymphoma, Malignant Melanoma, Non-Hodgkin's Lymphoma, Ovarian, Squamous Cell Carcinoma, Uterine Dermatologic History: Reports: Other (See Below) Other Dermatologic History: Actinic keratosis of the nose previously treated. Large left lower leg hematoma and secondary cellulitis secondary to Coumadin therapy and injury requiring debridement and evacuation in 2018 as below. - Infectious Disease History Infectious Disease History: Reports: Chicken Pox, Measles, Mumps, Shingles. Denies: C-Difficile, Meningitis, Mononucleosis, MRSA, Pertussis (Whooping Cough) , Rheumatic Fever, Rubella, Scarlet Fever, TB, VRE - Past Surgical History Head Surgeries/Procedures: Reports: None HEENT Surgical History: Reports: Cataract Surgery, Oral Surgery, Other (See Below). Denies: Adenoidectomy, Eye Surgery, Laser Surgery, LASIK, Myringotomy w Tube(s), Tonsillectomy Other HEENT Surgeries/Procedures: Bilateral cataract surgery in 2012. Multiple teeth extractions with partial upper dentures. Cardiovascular Surgical History: Reports: Coronary Artery Stent, Percutaneous Transluminal Angioplasty, Varicose, Vascular Surgery, Other (See Below). Denies : AAA Repair Other Cardiovascular Surgeries/Procedures: Varicose vein stripping of the right leg in 1952. PTCA/stent 3 with 2 stents placed in the LAD and one stent placed in the circumflex coronary artery on 05/12/17. Left renal artery stent placement on 09/08/17. PICC line placed on 07/15/17. Respiratory Surgical History: Reports: None. Denies: Thoracentesis GI Surgical History: Reports: Appendectomy, Colonoscopy, Other (See Below). Denies: Cholecystectomy, Colon, EGD, Hernia, Abdominal, Hernia, Inguinal, Hernia Repair/Other, Polypectomy Other GI Surgeries/Procedures: Colonoscopy in the 1980s. Appendectomy, and it with partial hysterectomy as below. Female Surgical History: Reports: Breast Biopsy, Hysterectomy, Salpingo- Oophorectomy, Other (See Below) Other Female Surgeries/Procedures: Left breast biopsy for benign disease in the . Partial hysterectomy with remaining left ovary secondary to dysfunctional uterine bleeding in the . Previous right-sided salpingo- oophorectomy prior to the above hysterectomy. Endocrine Surgical History: Reports: None. Denies: Thyroid Biopsy Neurological Surgical History: Reports: None. Denies: C-Spine, Discectomy, Laminectomy, Lumbar Spine, Spinal Fusion, Thoracic Spine, Vertebroplasty Musculoskeletal Surgical History: Reports: Arthroscopic Knee, Arthroscopic Procedure, Carpal Tunnel, Hip Replacement, Joint Replacement, Other (See Below) . Denies: Ganglion Cyst, ORIF, Shoulder Surgery Other Musculoskeletal Surgeries/Procedures:: Left hip TEP on 06/25/15. Right carpal tunnel release in about 2004. Left carpal tunnel release on 06/29/14. Right arthroscopic knee surgery in about 2007. Oncologic Surgical History: Reports: Biopsy of Breast, Other (See Below) Other Oncologic Surgeries/Procedures: For benign disease as above. Dermatological Surgical History: Reports: Other (See Below) Other Dermatological Surgeries/Procedures: Surgical debridement and evacuation of large hematoma of the left leg on 06/25/17. - Past Imaging History Past Imaging History: Reports: Angiography (IR angiogram of the renal arteries bilaterally on 09/08/17. Heart catheterization on 09/10/16 with ejection fraction of 75%. Note previous apparent negative evaluation in about 1999 by patient history.), Cardiac Echo, Carotid US (Last carotid artery Doppler studies on with previous evaluation on 11/02/09.), CAT Scan (CT of the head on . CT of the abdomen and pelvis on 08/12/16. CTA of the chest on 08/08/16. CT of the abdomen and pelvis on 02/04/10 and 10/22/14. CT of the chest on 05/08/16.), Mammogram (Last mammogram on 03/10/18), MRI (Lumbar spine and left hip on . Right knee on 01/22/11.), Sleep Study (02/13/16 and 10/21/15.), Stress Testing (Cardiolite stress test 05/11/17 with ejection fraction of 75% with previous evaluation on 01/17/17.), Ultrasound (Bilateral renal artery duplex evaluations on 04/13/18 and 10/14/17. Complete bilateral renal ultrasounds with additional renal artery duplex evaluations on 09/03/17. Abdominal ultrasound on 08/11/16.), Venous Doppler (Bilateral legs negative on 05/08/16 and the left leg on 07/27/15 positive for DVT.) Social & Family History - Family History HEENT: Reports: Allergic Rhinitis, Retinal Detachment, Other (See Below). Denies: Cataract, Glaucoma, Macular Degeneration Other HEENT Family History: Daughter with retinal detachment and allergic rhinitis. Cardiac: Reports: Bypass, CAD, Heart Murmur, Heart Valve Replacement, High Cholesterol, Hypertension, NC, PVD/COD, Other (See Below). Denies: Afib, Aneurysm, Arrhythmia, Blood Clots/VTE/DVT, Syncope Other Cardiac Family History: Son with mechanical valve replacement and CABG x1 at about age 62, son also - also suffers from hypertension and hyperlipidemia, son with agent orange exposure Respiratory: Reports: Sleep Apnea, Other (See Below). Denies: Asthma, COPD, PE , Pneumothorax, TB Other Respiratory Family Hisory: Son with sleep apnea sleep apnea. GI: Reports: Celiac Disease, Other (See Below). Denies: Cholelithiasis, Colon Polyps, GERD, GI bleed, Inflammatory Bowel Disease, Irritable Bowel Syndrome Other GI Family History: Daughter with celiac disease : Reports: Renal Disease/Insufficiency, Other (See Below). Denies: Dialysis, Renal Calculus Other Family History: Mother with end-stage renal disease OBGYN: Reports: None. Denies: Dysfunctional uterine bleeding, Endometriosis, Recurrent Spontaneous Musculoskeletal: Reports: None. Denies: Arthritis, Gout, Osteoarthritis, RA, SLE Neurological: Reports: Migraines, Seizure, Other (See Below). Denies: Alzheimers Disease, Cerebral Aneurysms, CVA, Dementia, MS, TIA Other Neurological Family History: Granddaughter with seizures at age 19, 2 granddaughters with migraine headaches Psychiatric: Reports: Anxiety, Depression, Other (See Below). Denies: Abuse, Victim of, ADD, ADHD, Psych Hospitalization(s), Psychosis, PTSD, Suicide Attempt Other Psychiatric Family History: Son with anxiety depression disorder Endocrine/Metabolic: Reports: None. Denies: Diabetes, Gestational, Diabetes, Type I, Diabetes, type II, Diabetes Mellitus, Type 3c, Hypothyroidism, IDDM Hematologic: Reports: None. Denies: Anemia, SLE, Transfusion Reaction Immunologic: Reports: None. Denies: AIDS, HIV, SLE Dermatologic: Reports: Psoriasis, Other (See Below). Denies: Eczema Other Dermatologic Family History: Daughter with psoriasis Oncologic: Reports: Bone, Breast, Esophageal, Metastatic, Other (See Below). Denies: Cervix, Hodgkin's Lymphoma, Leukemia, Lymphoma, Non-Hodgkin's Lymphoma, Ovarian, Skin, Uterine Other Oncologic Family History: Daughter with history of breast cancer in her 50s with reoccurrence in her 60s. Sister with possible bone cancer fatal at age 18, sister with fatal throat cancer in her 60s, sister with fatal vaginal cancer in her 60s, father with fatal throat cancer with pulmonary metastases at age 77 - Tobacco Use Smoking Status *Q: Never Smoker Tobacco Use Within Last Twelve Months: No Used Tobacco, but Quit: No Smoking Cessation Information Provided To Patient: No Second Hand Smoke Exposure: No Second Hand Smoke Education Provided: No - Caffeine Use Caffeine Use: Reports: Coffee (4 cups per day). Denies: Energy Drinks, Soda, Tea - Alcohol Use Alcohol Use History: Yes Days Per Week of Alcohol Use: 0 Number of Drinks Per Day: 1 Number of Drinks Per Day Comment: Usually the beer or wine. No previous DWIs, problems with alcohol abuse, etc. 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 ED EXAM, GENERAL - Physical Exam Exam: See Below Exam Limited By: No Limitations General Appearance: Alert, WD/WN, No Apparent Distress Eye Exam: Bilateral Eye: EOMI, Normal Fundi, Normal Inspection (She is wearing glasses. No nystagmus), PERRL Ears: Normal External Exam, Hearing Loss (Mild persistent presbycusis despite bilateral hearing aid therapy.) Nose: Normal Inspection, Normal Mucosa, No Blood Throat/Mouth: Normal Lips, Normal Teeth (Partial upper dentures), Normal Gums, Normal Oropharynx, Normal Voice, No Airway Compromise. No: Dysphagia, Perioral Cyanosis Head: Atraumatic, Normocephalic. No: Facial Swelling, Facial Tenderness, Sinus Tenderness Neck: Supple, Non-Tender, Full Range of Motion, Carotid Bruit (Mild to moderate bilateral carotid bruits versus transmitted heart sounds). No: Lymphadenopathy (L), Lymphadenopathy (R), Thyromegaly Respiratory/Chest: No Respiratory Distress, Normal Breath Sounds, No Accessory Muscle Use, Chest Non-Tender, Rales (Bilateral basilar ralesmild). No: Pleural Rub, Retractions Cardiovascular: Normal Peripheral Pulses, No Edema (Dependent edema as below), No Gallop, No JVD, No Rub, Systolic Murmur (23/6 TIFFANIE of the aortic and mitral valves), Extra Beats (Regular rate). No: Gallop/S3, Gallop/S4, Friction Rub Peripheral Pulses: 2+: Radial (L), Radial (R), Dorsalis Pedis (L), Dorsalis Pedis (R) GI/Abdominal: Normal Bowel Sounds, Soft, Non-Tender, No Organomegaly, No Distention, No Abnormal Bruit, No Mass. No: Guarding (Female) Exam: Deferred Rectal (Female) Exam: Deferred Back Exam: Normal Inspection, Full Range of Motion. No: CVA Tenderness (L), CVA Tenderness (R), Muscle Spasm Extremities: Normal Range of Motion, Non-Tender, Normal Capillary Refill, Pedal Edema (Mild trace bilateral pedal/pretibial edema), Other (8 cm in length old scar over the distal medial left tibial region at site of previous hematoma). No: Sergio's Sign Neurological: Alert, Oriented, CN II-XII Intact, Normal Cognition, Normal Gait, Normal Reflexes (Negative Babinski's), No Motor/Sensory Deficits Psychiatric: Normal Affect, Normal Mood. No: Anxious, Flat Affect Skin Exam: Warm, Dry, Intact, No Rash, Ecchymosis (Occasional ecchymosis on the upper extremities secondary to therapy with no petechiae). No: Diaphoretic, Petechiae, Wound/Incision Lymphatic: No Adenopathy EKG INTERPRETATION EKG Date: 07/01/18 Time: 19:39 Rhythm: NSR Rate (Beats/Min): 76 [place]: Normal (Intracardiac axis) P-Wave: Enlarged (Mild diffuse biphasic P waves with extreme poor R-wave progression in the anterior leads) QRS: Normal (0.09 seconds with T-wave inversion in leads V1 and aVL, which is new from last EKG at [facility] on 09/11/17) ST-T: Normal (With resolution of previous nonspecific ST changes from last EKG) QT: Prolonged (410/461 ms) OR/PQ Interval: 0.17 seconds Comparison: Change From Previous EKG (As above) EKG Interpretation Comments: 1. No acute ischemic changes 2. Possible left atrial enlargement Course - Vital Signs Last Recorded V/S: Last Vital Signs Temp 37.1 C 07/01/18 19:05 Pulse 68 07/01/18 21:18 Resp 16 07/01/18 21:18 BP 120/51 L 07/01/18 21:18 Pulse Ox 100 07/01/18 21:18 Vital Signs - 24 hr 07/01/18 07/01/18 07/01/18 19:05 19:18 19:25 Temperature [ 37.1 C Temporal] Pulse, 73 75 Peripheral [ Right Pulse Oximetry] Respiratory 20 18 Rate Blood Pressure Blood Pressure [Left Upper Arm ] Blood Pressure 211/108 H 218/71 H 210/82 H [Right Upper Arm] O2 Sat by Pulse 100 98 Oximetry 07/01/18 07/01/18 07/01/18 19:33 19:48 20:07 Temperature [ Temporal] Pulse, 76 68 69 Peripheral [ Right Pulse Oximetry] Respiratory 20 18 18 Rate Blood Pressure Blood Pressure 173/83 H 194/73 H [Left Upper Arm ] Blood Pressure 195/81 H [Right Upper Arm] O2 Sat by Pulse 98 97 Oximetry 07/01/18 07/01/18 07/01/18 20:18 20:23 20:34 Temperature [ Temporal] Pulse, 67 73 Peripheral [ Right Pulse Oximetry] Respiratory 14 14 Rate Blood Pressure 197/64 H Blood Pressure 197/64 H 134/62 [Left Upper Arm ] Blood Pressure [Right Upper Arm] O2 Sat by Pulse 100 100 Oximetry 07/01/18 07/01/18 07/01/18 20:48 21:03 21:18 Temperature [ Temporal] Pulse, 70 69 68 Peripheral [ Right Pulse Oximetry] Respiratory 15 17 16 Rate Blood Pressure Blood Pressure 99/76 120/51 L [Left Upper Arm ] Blood Pressure 105/51 L [Right Upper Arm] O2 Sat by Pulse 100 100 100 Oximetry - Orders/Labs/Meds Orders: Active Orders 24 hr Category Date Time Status Cardiac Monitoring [RC] . DIRECTED Care 07/01/18 19:24 Active EKG Documentation Completion [RC] ASDIRECTED Care 07/01/18 19:24 Active Oxygen Therapy, ED [RC] CONTINUOUS Care 07/01/18 19:24 Active Peripheral IV Care [RC] . DIRECTED Care 07/01/18 19:24 Active Pulse Oximetry [RC] CONTINUOUS Care 07/01/18 19:24 Active Up With Assistance [RC] PFP Care 07/01/18 19:24 Active Vital Signs [RC] PFP Care 07/01/18 19:24 Active Nothing per Oral Now Diet [DIET] Diet 07/01/18 Breakfast Active Chest 1V Frontal [CR] Stat Exams 07/01/18 19:24 Taken Nitroglycerin 25 MG in D5W @ 10 MCG/MIN (250ml) Premix Med 07/01/18 20:30 Ordered Nitroglycerin/D5W [Nitroglycerin 25 MG/D5W 250 ML] 25 mg in 250 ml IV TITRATE Nitroglycerin [Nitrostat] Med 07/01/18 20:20 Stat 0.4 mg SL ONETIME STA Sodium Chloride 0.9% [Normal Saline] 1,000 ml Med 07/01/18 20:45 Ordered IV ASDIRECTED Sodium Chloride 0.9% [Saline Flush] Med 07/01/18 19:24 Active 10 ml FLUSH ASDIRECTED PRN Obtain Past Medical Record [OM.PC] Urgent Oth 07/01/18 19:24 Active Peripheral IV Insertion Adult [OM.PC] Stat Oth 07/01/18 19:24 Ordered Resuscitation Status Stat Resus Stat 07/01/18 19:24 Ordered Medication Orders Nitroglycerin/Dextrose (Nitroglycerin 25 Mg/D5w 250 Ml) 25 mg in 250 mls @ 6 mls/hr IV TITRATE NIKITA Last Infusion: 07/01/18 20:53 Dose: 5 mcg/min, 3 mls/hr Admin: 07/01/18 20:37 Dose: 10 mcg/min, 6 mls/hr Sodium Chloride (Normal Saline) 1,000 mls @ 30 mls/hr IV ASDIRECTED NIKITA Last Admin: 07/01/18 20:42 Dose: 30 mls/hr Nitroglycerin (Nitrostat) 0.4 mg SL ONETIME STA Stop: 07/02/18 20:21 Last Admin: 07/01/18 20:23 Dose: 0.4 mg Sodium Chloride (Saline Flush) 10 ml FLUSH ASDIRECTED PRN PRN Reason: Keep Vein Open Last Admin: 07/01/18 20:26 Dose: 10 ml Labs: Laboratory Tests 07/01/18 07/01/18 07/01/18 Range/Units 19:45 19:45 19:45 WBC 8.1 (4.0-10.2) K/uL RBC 3.98 (3.77-5.09) M/uL Hgb 11.9 (11.7-15.5) g/dL Hct 36.1 (34.0-46.0) % MCV 90.7 (84.0-98.0) fL MCH 29.9 (28.2-33.3) pg MCHC 33.0 (31.7-36.0) g/dL RDW 14.6 H (11.2-14.1) % Plt Count 293 (150-350) K/uL Neut % (Auto) 70.3 (45.0-80.0) % Lymph % (Auto) 20.2 (10.0-50.0) % [place] % (Auto) 8.1 (2.0-14.0) % Eos % (Auto) 0.9 (0.0-5.0) % Baso % (Auto) 0.5 (0.0-2.0) % Neut # (Auto) 5.69 (1.40-7.00) K/uL Lymph # (Auto) 1.64 (0.50-3.50) K/uL [place] # (Auto) 0.66 (0.00-1.00) K/uL Eos # (Auto) 0.07 (0.00-0.50) K/uL Baso # (Auto) 0.04 (0.00-0.20) K/uL PT 25.7 H (9.5-12.0) SEC INR 2.4 APTT 34.5 H (21.0-31.3) SEC D-Dimer, Quantitative < 100 (0-400) ng/mL Sodium (136-145) mmol/L Potassium (3.5-5.1) mmol/L Chloride (98-107) mmol/L Carbon Dioxide (21.0-32.0) mmol/L BUN (7-18) mg/dL Creatinine (0.51-1.17) mg/dL Est Cr Clr Drug Dosing Estimated GFR (MDRD) mL/min Glucose (74-106) mg/dL Lactic Acid (0.4-2.0) mmol/L Uric Acid (2.6-7.2) mg/dL Calcium (8.5-10.1) mg/dL Magnesium (1.8-2.4) mg/dL Total Bilirubin (0.2-1.0) mg/dL AST (15-37) U/L ALT (12-78) U/L Alkaline Phosphatase (46-116) IU/L Creatine Kinase (26-308) U/L Creatine Kinase Index (0.0-2.5) % CK-MB (CK-2) (0.00-3.60) ng/mL Troponin I (0.000-0.056) ng/mL NT-Pro-B Natriuret Pep (0-125) pg/mL Total Protein (6.4-8.2) g/dL Albumin (3.4-5.0) g/dL TSH, Ultra Sensitive (0.358-3.740) mIU/mL 07/01/18 07/01/18 Range/Units 19:45 19:45 WBC (4.0-10.2) K/uL RBC (3.77-5.09) M/uL Hgb (11.7-15.5) g/dL Hct (34.0-46.0) % MCV (84.0-98.0) fL MCH (28.2-33.3) pg MCHC (31.7-36.0) g/dL RDW (11.2-14.1) % Plt Count (150-350) K/uL Neut % (Auto) (45.0-80.0) % Lymph % (Auto) (10.0-50.0) % [place] % (Auto) (2.0-14.0) % Eos % (Auto) (0.0-5.0) % Baso % (Auto) (0.0-2.0) % Neut # (Auto) (1.40-7.00) K/uL Lymph # (Auto) (0.50-3.50) K/uL [place] # (Auto) (0.00-1.00) K/uL Eos # (Auto) (0.00-0.50) K/uL Baso # (Auto) (0.00-0.20) K/uL PT (9.5-12.0) SEC INR APTT (21.0-31.3) SEC D-Dimer, Quantitative (0-400) ng/mL Sodium 139 (136-145) mmol/L Potassium 4.3 (3.5-5.1) mmol/L Chloride 101 (98-107) mmol/L Carbon Dioxide 26.9 (21.0-32.0) mmol/L BUN 21 H (7-18) mg/dL Creatinine 0.84 (0.51-1.17) mg/dL Est Cr Clr Drug Dosing TNP Estimated GFR (MDRD) > 60 mL/min Glucose 98 (74-106) mg/dL Lactic Acid 0.8 (0.4-2.0) mmol/L Uric Acid 4.0 (2.6-7.2) mg/dL Calcium 9.4 (8.5-10.1) mg/dL Magnesium 2.2 (1.8-2.4) mg/dL Total Bilirubin 0.3 (0.2-1.0) mg/dL AST 26 (15-37) U/L ALT 27 (12-78) U/L Alkaline Phosphatase 59 (46-116) IU/L Creatine Kinase 56 (26-308) U/L Creatine Kinase Index 1.6 (0.0-2.5) % CK-MB (CK-2) 0.90 (0.00-3.60) ng/mL Troponin I 0.065 H* (0.000-0.056) ng/mL NT-Pro-B Natriuret Pep 901 H (0-125) pg/mL Total Protein 7.6 (6.4-8.2) g/dL Albumin 4.1 (3.4-5.0) g/dL TSH, Ultra Sensitive 1.080 (0.358-3.740) mIU/mL Meds: Medications Generic Name Dose Route Start Last Admin Trade Name Freq PRN Reason Stop Dose Admin Nitroglycerin/Dextrose 25 mg in 250 mls @ 6 mls/hr 07/01/18 20:30 07/01/18 20 :53 Nitroglycerin 25 Mg/D5w 250 Ml IV 5 mcg/min TITRATE NIKITA 3 mls/hr Infusion 10 MCG/MIN Sodium Chloride 1,000 mls @ 30 mls/hr 07/01/18 20:45 07/01/18 20:42 Normal Saline IV 30 mls/hr ASDIRECTED NIKITA Administration Nitroglycerin 0.4 mg 07/01/18 20:20 07/01/18 20:23 Nitrostat SL 07/02/18 20:21 0.4 mg ONETIME STA Administration Sodium Chloride 10 ml 07/01/18 19:24 07/01/18 20:26 Saline Flush FLUSH 10 ml ASDIRECTED PRN Administration Keep Vein Open Discontinued Medications Generic Name Dose Route Start Last Admin Trade Name Freq PRN Reason Stop Dose Admin Famotidine 40 mg 07/01/18 19:24 07/01/18 19:48 Pepcid IVPUSH 07/01/18 19:25 40 mg ONETIME ONE Administration Furosemide 60 mg 07/01/18 20:19 07/01/18 20:24 Lasix IVPUSH 07/01/18 20:20 60 mg NOW ONE Administration Labetalol HCl 10 mg 07/01/18 19:26 07/01/18 19:43 Normodyne IVPUSH 07/01/18 19:27 10 mg ONETIME ONE Administration Protocol - Radiology Interpretation Free Text/Narrative:: potline monitor shows normal sinus rhythm with exception of occasional uniform PVCs with average heart rate in the 70s to 80s. Chest x-ray, portable, shows mild COPD changes with no pulmonary infiltrates or pneumothorax. Mild aortic valve calcification with mild centralized CHF and/or pulmonary hypertension. Departure - Departure Time of Disposition: 21:30 Disposition: Refer to Observation Condition: Fair Clinical Impression: CHF (congestive heart failure), COPD (chronic obstructive pulmonary disease), HTN (hypertension), Hypothyroidism, Osteoarthritis, Peptic reflux disease, Renal insufficiency, Mixed anxiety depressive disorder, Coronary artery disease - Discharge Information *PRESCRIPTION DRUG MONITORING PROGRAM REVIEWED*: Not Applicable *COPY OF PRESCRIPTION DRUG MONITORING REPORT IN PATIENT OSVALDO: Not Applicable Referrals: Yarelis Amezcua NP [Primary Care Provider] - Forms: ED Department Discharge Care Plan Goals: See plan - Problem List & Annotations (1) Coronary artery disease SNOMED Code(s): 21782947 Code(s): I25.10 - ATHSCL HEART DISEASE OF [place] CORONARY ARTERY W/O ANG PCTRS Status: Acute Priority: High Current Visit: No Annotation/Comment: : Coronary artery disease including history of STEMI on 05/12/17 requiring PTCA/ stent 3 as above. Note elevated troponin secondary to possible NC, CHF, and renal insufficiency. Chest pain protocol was not initiated in the emergency room secondary to absence of anginal complaints on arrival. Patient's INR is therapeutic with history of postoperative atrial fibrillation and DVT as above. IV nitroglycerin therapy was initiated. Secondary to blizzard winter conditions we are unable to transfer the patient to [place] this evening. The EKG and blood work are to be repeated in the a.m. with probable cardiology consultation and patient transfer to [facility] at that time. Note the patient still denies any type of chest pain or other anginal-type symptoms including on placement into observation status. Qualifiers: Coronary Disease-Associated Artery/Lesion type: [place] artery [place] vs. transplanted heart: [place] heart Associated angina: without angina Qualified Code(s): I25.10 - Atherosclerotic heart disease of [place] coronary artery without angina pectoris (2) HTN (hypertension) SNOMED Code(s): 40163956 Code(s): I10 - ESSENTIAL (PRIMARY) HYPERTENSION Status: Acute Priority: High Current Visit: No Annotation/Comment:: Hypertensive crisis possibly secondary to threatening NC. Initial aggressive treatment with IV labetalol with subsequent sublingual nitroglycerin with overall good results. Note initiation of subsequent IV nitroglycerin infusion. Continue to observe blood pressures closely. Note history of renal artery stenosis. Qualifiers: Hypertension type: essential hypertension Qualified Code(s): I10 - Essential (primary) hypertension (3) CHF (congestive heart failure) SNOMED Code(s): 76369978 Code(s): I50.9 - HEART FAILURE, UNSPECIFIED Status: Acute Priority: High Current Visit: No Onset Date: 10/01/16 Annotation/Comment:: Mild CHF exacerbation secondary to possible NC. IV Lasix therapy initiated in the emergency room. Note previous echocardiogram on 09/11/16 with results as above. Note, however, progressive valvular disease by clinical exam with repeat echocardiogram, etc. advisable (4) COPD (chronic obstructive pulmonary disease) SNOMED Code(s): 00458494 Code(s): J44.9 - CHRONIC OBSTRUCTIVE PULMONARY DISEASE, UNSPECIFIED Status : Chronic Priority: Medium Current Visit: No Annotation/Comment:: Stable by history with no recent history of fever or bronchitic type symptoms. Note sleep apnea with patient compliant with her CPAP, which will be continued during this hospitalization. Qualifiers: COPD type: emphysema Emphysema type: panlobular Qualified Code(s): J43.1 - Panlobular emphysema (5) Hypothyroidism SNOMED Code(s): 75563748 Code(s): E03.9 - HYPOTHYROIDISM, UNSPECIFIED Status: Chronic Priority: Medium Current Visit: No Annotation/Comment:: Currently under therapy. TSH normal today. (6) PVC's (premature ventricular contractions) SNOMED Code(s): 78481721 Code(s): I49.3 - VENTRICULAR PREMATURE DEPOLARIZATION Status: Acute Priority: Medium Current Visit: No Annotation/Comment:: Note labetalol therapy as above. PVCs nonsymptomatic at this time. (7) Peptic reflux disease SNOMED Code(s): 389909608 Code(s): K21.9 - GASTRO-ESOPHAGEAL REFLUX DISEASE WITHOUT ESOPHAGITIS Status: Chronic Priority: Medium Current Visit: No Annotation/Comment:: High Dose IV Pepcid given as GI prophylaxis. No recent abdominal complaints. (8) Renal insufficiency SNOMED Code(s): 639972324, 777499633 Code(s): N28.9 - DISORDER OF KIDNEY AND URETER, UNSPECIFIED Status: Chronic Priority: Medium Current Visit: No Annotation/Comment:: Continue to observe closely secondary to IV Lasix. Note history of renal artery stenosis. BUN and creatinine are normal today. (9) Mixed anxiety depressive disorder SNOMED Code(s): 203933137 Code(s): F41.8 - OTHER SPECIFIED ANXIETY DISORDERS Status: Chronic Priority: Medium Current Visit: No Annotation/Comment:: Stable by patient history (10) Osteoarthritis SNOMED Code(s): 598314985 Code(s): M19.90 - UNSPECIFIED OSTEOARTHRITIS, UNSPECIFIED SITE Status: Chronic Priority: Medium Current Visit: No Annotation/Comment:: Stable by history with known history of rheumatoid arthritis. Qualifiers: Osteoarthritis location: multiple joints Osteoarthritis type: primary Qualified Code(s): M15.0 - Primary generalized (osteo)arthritis - Problem List Review Problem List Initiated/Reviewed/Updated: Yes - My Orders Last 24 Hours: My Active Orders 07/01/18 19:24 Cardiac Monitoring [RC] . DIRECTED EKG Documentation Completion [RC] ASDIRECTED Oxygen Therapy, ED [RC] CONTINUOUS Peripheral IV Care [RC] . DIRECTED Pulse Oximetry [RC] CONTINUOUS Up With Assistance [RC] PFP Vital Signs [RC] PFP Chest 1V Frontal [CR] Stat Sodium Chloride 0.9% [Saline Flush] 10 ml FLUSH ASDIRECTED PRN Obtain Past Medical Record [OM.PC] Urgent Peripheral IV Insertion Adult [OM.PC] Stat Resuscitation Status Stat 07/01/18 20:20 Nitroglycerin [Nitrostat] 0.4 mg SL ONETIME STA 07/01/18 20:30 Nitroglycerin 25 MG in D5W @ 10 MCG/MIN (250ml) Premix Nitroglycerin/D5W [ Nitroglycerin 25 MG/D5W 250 ML] 25 mg in 250 ml IV TITRATE 07/01/18 20:45 Sodium Chloride 0.9% [Normal Saline] 1,000 ml IV ASDIRECTED 07/01/18 Breakfast Nothing per Oral Now Diet [DIET] - Assessment/Plan Admission H&P: Please use this note as an admission H&P Last 24 Hours: My Active Orders 07/01/18 19:24 Cardiac Monitoring [RC] . DIRECTED EKG Documentation Completion [RC] ASDIRECTED Oxygen Therapy, ED [RC] CONTINUOUS Peripheral IV Care [RC] . DIRECTED Pulse Oximetry [RC] CONTINUOUS Up With Assistance [RC] PFP Vital Signs [RC] PFP Chest 1V Frontal [CR] Stat Sodium Chloride 0.9% [Saline Flush] 10 ml FLUSH ASDIRECTED PRN Obtain Past Medical Record [OM.PC] Urgent Peripheral IV Insertion Adult [OM.PC] Stat Resuscitation Status Stat 07/01/18 20:20 Nitroglycerin [Nitrostat] 0.4 mg SL ONETIME STA 07/01/18 20:30 Nitroglycerin 25 MG in D5W @ 10 MCG/MIN (250ml) Premix Nitroglycerin/D5W [ Nitroglycerin 25 MG/D5W 250 ML] 25 mg in 250 ml IV TITRATE 07/01/18 20:45 Sodium Chloride 0.9% [Normal Saline] 1,000 ml IV ASDIRECTED 07/01/18 Breakfast Nothing per Oral Now Diet [DIET] Assessment:: As above. Plan: As above. Extensive precautions were given to the patient and her granddaughter , who are in agreement with the treatment plan. The patient's condition is stable enough for observation status and general supervision.
[2018-07-01] MEDS ORDERED: Labetalol 20 MG/4 ML Syringe IVPUSH ONE (19:26)
[2018-07-01 20:13] LABS: CHLORIDE,CL 101 mmol/L (98-107); SODIUM,NA 139 mmol/L (136-145)
[2018-07-01] MEDS ORDERED: Furosemide 40 MG/4 ML VIAL IVPUSH ONE (20:19)
[2018-07-01] MEDS ORDERED: Nitroglycerin 0.4 MG Tab.SL SL STA (20:20)
[2018-07-01] MEDS: Sodium Chloride 0.9% 10 ML Syringe FLUSH PRN (20:26)
[2018-07-01] MEDS ORDERED: Nitroglycerin/D5W 25 MG/250 ML BOTTLE IV SCH (20:30)
[2018-07-01] MEDS ORDERED: Sodium Chloride 0.9% 1,000 ML IV SCH (20:45)
[2018-07-01] MEDS ORDERED: LORazepam 0.5 MG Tab PO PRN (21:38)
[2018-07-01] MEDS ORDERED: Acetaminophen 325 MG Tab PO PRN (21:39)
[2018-07-01] MEDS ORDERED: Sodium Chloride 0.9% 10 ML Syringe FLUSH PRN (21:39)
[2018-07-01] MEDS ORDERED: LORazepam 0.5 MG Tab PO SCH (21:45)
[2018-07-01] MEDS ORDERED: Polyvinyl Alcohol 1.4% Ophth Soln 15 ML Bottle EYEBOTH PRN (22:15)
[2018-07-02 06:52] LABS: HEMOGLOBIN A1C 5.7 % (4.3-5.7)
[2018-07-02] MEDS ORDERED: Furosemide 40 MG/4 ML VIAL IVPUSH SCH (07:00)
[2018-07-02 07:37] LABS: CHLORIDE,CL 103 mmol/L (98-107); SODIUM,NA 141 mmol/L (136-145)
[2018-07-02] MEDS ORDERED: Sertraline 50 MG Tab PO SCH (08:00)
[2018-07-02] MEDS ORDERED: Levothyroxine 50 MCG Tab PO SCH (08:00)
[2018-07-02] MEDS ORDERED: Multivitamin Tab PO SCH (08:00)
[2018-07-02] MEDS ORDERED: Potassium Chloride 20 MEQ Tab.ER PO SCH (08:00)
[2018-07-02] MEDS ORDERED: Metoprolol Tartrate 25 MG Tab PO SCH (08:00)
[2018-07-02] MEDS ORDERED: LORazepam 0.5 MG Tab PO SCH ×2 (08:00→20:00)
[2018-07-02] MEDS ORDERED: Clopidogrel 75 MG Tab PO SCH (08:00)
[2018-07-02] MEDS ORDERED: predniSONE 5 MG Tab PO SCH (08:00)
[2018-07-02] MEDS ORDERED: Aspirin 81 MG Tab.EC PO SCH (08:00)
[2018-07-02] MEDS ORDERED: LUTEIN EXTRACT PO SCH (08:00)
[2018-07-02] MEDS ORDERED: ZEAXANTHIN EXT PO SCH (08:00)
[2018-07-02] MEDS ORDERED: [UNRECOGNIZED DRUG - OTHER] PO SCH (08:00)
--- NOTE | 2018-07-02 08:21 | PCM.DCSUM1 ---
Discharge Summary - Hospital Course HPI Initial Comments: See emergency room note/admission H&P Brief History: See emergency room note/admission H&P Diagnosis: Stroke: No Modified [place] Scale: No Symptoms at All Modified [place] Scale Score: 0 - Discharge Data Discharge Date: 07/02/18 Discharge Disposition: DC/Tfer to Acute Hospital 02 Condition: Fair - Discharge Diagnosis/Problem(s) (1) Coronary artery disease SNOMED Code(s): 85693093 ICD Code: I25.10 - ATHSCL HEART DISEASE OF [place] CORONARY ARTERY W/O ANG PCTRS Status: Acute Priority: High Current Visit: Yes Problem Details: The patient still denies any chest pain or other anginal-type symptoms despite mild progressive BNP and troponin I elevation. Her renal status has remained relatively stable despite Lasix therapy with excellent urine output. Telephone consultation at 08:[address] Logan, hospitalist at [facility] in [place], who does accept the patient for direct admission and probable cardiology consultation, with no further treatment recommendations given. Note INR is therapeutic today at 2.7 with accepting provider agreeing not to initiate IV heparin therapy at this time. Accepting provider is aware that previous Cardiolite stress test in April 2017 prior to subsequent immediate positive heart catheterization requiring PTCA/stent 3 for non-STEMI as below. The patient would benefit from a repeat heart catheterization secondary to suspected threatening acute ID with nonspecific new inferior ST changes as below. In addition, note progressive valvular disease by clinical exam as below. Known Coronary artery disease, including history of STEMI on 05/12/17 requiring PTCA/stent 3 as above. Note elevated troponin secondary to possible ID, CHF, and renal insufficiency on admission. Chest pain protocol was not initiated in the emergency room secondary to absence of anginal complaints on arrival. Patient's INR was therapeutic on admission with history of postoperative atrial fibrillation and DVT as per emergency room note. IV nitroglycerin therapy was initiated, however IV heparin therapy was not initiated secondary to her therapeutic INR. Secondary to blizzard winter conditions we are unable to transfer the patient to [place] yesterday evening. Vital signs were stable at time of transfer. Qualifiers: Coronary Disease-Associated Artery/Lesion type: [place] artery [place] vs. transplanted heart: [place] heart Associated angina: without angina Qualified Code(s): I25.10 - Atherosclerotic heart disease of [place] coronary artery without angina pectoris (2) HTN (hypertension) SNOMED Code(s): 29846181 ICD Code: I10 - ESSENTIAL (PRIMARY) HYPERTENSION Status: Acute Priority: High Current Visit: Yes Problem Details: Her blood pressures are much improved with systolic blood pressures ranging in the 130s to 160s during this hospitalization. Note Hypertensive crisis prior to arrival to the emergency room possibly secondary to threatening ID. Initial aggressive treatment with IV labetalol with subsequent sublingual nitroglycerin with overall good results. Note initiation of subsequent IV nitroglycerin infusion in the emergency room as above. Continue to observe her blood pressures closely. Note history of renal artery stenosis. Qualifiers: Hypertension type: essential hypertension Qualified Code(s): I10 - Essential (primary) hypertension (3) CHF (congestive heart failure) SNOMED Code(s): 92054944 ICD Code: I50.9 - HEART FAILURE, UNSPECIFIED Status: Acute Priority: High Current Visit: Yes Onset Date: 10/01/16 Problem Details: Mild progressive BNP elevation as above with excellent urine output with IV Lasix. Mild CHF exacerbation secondary to possible ID. IV Lasix therapy initiated in the emergency room. Note previous echocardiogram on 09/11/16 with results as per emergency room note. Note, however, progressive valvular disease by clinical exam with repeat echocardiogram, heart catheterization, etc. advisable. (4) COPD (chronic obstructive pulmonary disease) SNOMED Code(s): 28312011 ICD Code: J44.9 - CHRONIC OBSTRUCTIVE PULMONARY DISEASE, UNSPECIFIED Status : Chronic Priority: Medium Current Visit: Yes Problem Details: Stable by history with no recent history of fever or bronchitic type symptoms. Note sleep apnea with patient compliant with her CPAP, which was continued during this hospitalization. Qualifiers: COPD type: emphysema Emphysema type: panlobular Qualified Code(s): J43.1 - Panlobular emphysema (5) Hypothyroidism SNOMED Code(s): 09738566 ICD Code: E03.9 - HYPOTHYROIDISM, UNSPECIFIED Status: Chronic Priority: Medium Current Visit: No Problem Details: Currently under therapy. TSH normal on 07/01. (6) PVC's (premature ventricular contractions) SNOMED Code(s): 50497122 ICD Code: I49.3 - VENTRICULAR PREMATURE DEPOLARIZATION Status: Acute Priority: Medium Current Visit: No Problem Details: Note labetalol therapy given in the emergency room as above with known previous history of PVCs and additional current beta yayo therapy prior to admission. PVCs nonsymptomatic at this time. (7) Peptic reflux disease SNOMED Code(s): 278549401 ICD Code: K21.9 - GASTRO-ESOPHAGEAL REFLUX DISEASE WITHOUT ESOPHAGITIS Status: Chronic Priority: Medium Current Visit: No Problem Details: High Dose IV Pepcid given as GI prophylaxis in the emergency room. No recent abdominal complaints with no evidence of GI bleed, etc despite progressive anemia. Note current Coumadin therapy. Continue to observe closely by accepting providers with further GI workup, etc. depending on her clinical course (8) Renal insufficiency SNOMED Code(s): 725241342, 567068912 ICD Code: N28.9 - DISORDER OF KIDNEY AND URETER, UNSPECIFIED Status: Chronic Priority: Medium Current Visit: No Problem Details: Continue to observe closely secondary to IV Lasix. Note history of renal artery stenosis. BUN and creatinine are relatively stable today. (9) Mixed anxiety depressive disorder SNOMED Code(s): 938149243 ICD Code: F41.8 - OTHER SPECIFIED ANXIETY DISORDERS Status: Chronic Priority: Medium Current Visit: No Problem Details: Stable by patient history and currently under therapy. (10) Osteoarthritis SNOMED Code(s): 891873317 ICD Code: M19.90 - UNSPECIFIED OSTEOARTHRITIS, UNSPECIFIED SITE Status: Chronic Priority: Medium Current Visit: No Problem Details: Stable by history with known history of rheumatoid arthritis. Qualifiers: Osteoarthritis location: multiple joints Osteoarthritis type: primary Qualified Code(s): M15.0 - Primary generalized (osteo)arthritis (11) Hypoalbuminemia SNOMED Code(s): 005120149 ICD Code: E88.09 - [facility] DISORDERS OF PLASMA-PROTEIN METABOLISM, NEC Status: Acute Priority: Medium Current Visit: Yes Onset Date: 07/02/18 Problem Details: Observe for now. Consider high protein Glucerna supplements as snacks. (12) Peripheral neuropathy SNOMED Code(s): 271626003 ICD Code: G62.9 - POLYNEUROPATHY, UNSPECIFIED Status: Chronic Priority: Medium Current Visit: Yes Problem Details: Previous history of peripheral neuropathy in her feet with no current therapy. Symptoms are stable at this time. Consider Neurontin, etc. therapy depending on her clinical course. Patient may benefit from vascular evaluation for further peripheral vascular disease secondary to her risk factors, including heart disease, renal artery stenosis, etc. Qualifiers: Peripheral neuropathy type: polyneuropathy, unspecified Qualified Code(s): G62.9 - Polyneuropathy, unspecified (13) Valvular heart disease SNOMED Code(s): 941551 ICD Code: I38 - ENDOCARDITIS, VALVE UNSPECIFIED Status: Chronic Priority : High Current Visit: Yes Problem Details: Progressive aortic valve stenosis and mitral valve insufficiency by clinical exam with further workup recommended as above. (14) Anemia SNOMED Code(s): 061947855 ICD Code: D64.9 - ANEMIA, UNSPECIFIED Status: Chronic Priority: High Current Visit: Yes Problem Details: As above. Note progressive anemia with hemoglobin of 9.9 in comparison to 11.9 from admission. Qualifiers: Anemia type: unspecified type Qualified Code(s): D64.9 - Anemia, unspecified (15) Hyperlipidemia SNOMED Code(s): 97921671 ICD Code: E78.5 - HYPERLIPIDEMIA, UNSPECIFIED Status: Chronic Priority: High Current Visit: Yes Problem Details: Somewhat elevated lipid panel today with patient currently not on statin therapy secondary to her previous intolerance to Lipitor. Patient would benefit from retrial of another low-dose statin with concomitant Coenzyme Q10 therapy. Glycosylated hemoglobin normal today. Qualifiers: Hyperlipidemia type: mixed hyperlipidemia Qualified Code(s): E78.2 - Mixed hyperlipidemia - Patient Summary/Data Operative Procedure(s) Performed: None Complications: None Consults: None Labs Pending at D/C: Final chest x-ray report from 07/01/18. Recommended Follow-up Testing/Procedures: As above Planned Operative Procedure(s) after DC: Possible heart catheterization as above. Hospital Course: Patient was placed in observation status on telemetry with initiation of standard rule out ID orders. Note mild progressive troponin I and BNP elevation as above. Otherwise no complications during this hospitalization with aggressive treatment for her blood pressure, cardiac disease, etc. as above. The patient was kept nothing by mouth with exception of medications and ice chips during this entire hospitalization and did remain nothing by mouth prior to transfer. - Patient Instructions Diet: NPO Fluid Restriction: 1800 mL Activity: Bedrest, May Use Bathroom Driving: Do Not Drive Showering/Bathing: No Showering Notify Provider of: Increased Pain, Nausea and/or Vomiting - Discharge Plan *PRESCRIPTION DRUG MONITORING PROGRAM REVIEWED*: Not Applicable *COPY OF PRESCRIPTION DRUG MONITORING REPORT IN PATIENT OSVALDO: Not Applicable Home Medications: Home Meds Levothyroxine Sodium [Unithroid] 50 mcg PO DAILY 07/15/16 [History] Multivitamin [Daily Rajat] 1 tab PO DAILY 07/15/16 [History] Nitroglycerin [Nitrostat] 0.4 mg SL Q5M PRN 07/15/16 [History] Cholecalciferol (Vitamin D3) [Vitamin D3] 2,000 unit PO BEDTIME 09/30/16 [ History] Acetaminophen [Tylenol Arthritis] 1,300 mg PO BID 12/05/16 [History] L.acidoph,Paracasei, B.lactis [Probiotic] 1 each PO BEDTIME 12/05/16 [History] LORazepam 1 mg PO BEDTIME 06/10/17 [History] LORazepam [Ativan] 0.5 mg PO DAILY 06/10/17 [History] Lutein Extract/Zeaxanthin Ext [Lutein 15 MG Softgel] 1 cap PO BID 06/10/17 [ History] Prednisone [IJP: Prednisone] 5 mg PO DAILY 06/10/17 [History] Sennosides/Docusate Sodium [Senna-S] 1 each PO BID 06/10/17 [History] Dextran 70/Hypromellose [Artificial Tears] 2 ml OP Q1H PRN 07/14/17 [History] LORazepam [Ativan] 0.5 mg PO Q8HR PRN 07/14/17 [History] Clopidogrel [Plavix] 75 mg PO DAILY #90 tablet 08/05/17 [Rx] Metoprolol Tartrate 12.5 mg PO Q12HR@0800,2000 #90 tablet 08/05/17 [Rx] Sertraline [Zoloft] 50 mg PO DAILY #90 tablet 08/05/17 [Rx] Aspirin [Adult Low Dose Aspirin EC] 81 mg PO DAILY 07/01/18 [History] Warfarin Sodium 1 tab PO ASDIRECTED 07/01/18 [History] amLODIPine Besylate [Amlodipine Besylate] 10 mg PO 1800 07/01/18 [History] Oxygen Flow Rate (L/min): 2 FiO2: 92 Maintain SpO2% greater than: 98 Patient Handouts: Hypertension, Huri-ck-Eymb, Nitroglycerin injection Forms: ED Department Discharge, Interfacility Transfer EMTALA Referrals: Yarelis Amezcua NP [Primary Care Provider] - - Discharge Summary/Plan Comment DC Time >30 min.: Yes (Coordination of care ) Discharge Summary/Plan Comment: As above. Extensive precautions were given to the patient, who is in agreement with the treatment plan. Ambulance transfer to [place] via ambulance with director health accompaniment as above. - General Info Date of Service: 07/02/18 Functional Status: Reports: Pain Controlled, Ambulating, Urinating. Denies: Tolerating Diet (Nothing by mouth), New Symptoms, Incentive Spirometry Numeric/FACES Score: 0 - Review of Systems General: Reports: No Symptoms. Denies: Fever, Weakness, Fatigue, Malaise, Chills, Night Sweats, Appetite HEENT: Reports: Glasses. Denies: Ear Pain, Eye Pain, Headaches, Post Nasal Drip , Sinus Congestion, Sore Throat, Rhinitis, Visual Changes Pulmonary: Reports: No Symptoms. Denies: Shortness of Breath, Pleuritic Chest Pain, Cough, Sputum, Hemoptysis, Wheezing Cardiovascular: Reports: No Symptoms. Denies: Chest Pain, Palpitations, Dyspnea on Exertion, Orthopnea, Edema (Resolved), Lightheadedness Gastrointestinal: Reports: No Symptoms, Other (No Bowel movement since admission ). Denies: Abdominal Pain, Constipation, Decreased Appetite, Diarrhea, Difficulty Swallowing, Flatus, Hematochezia, Melena, Nausea, Vomiting Genitourinary: Reports: No Symptoms. Denies: Dysuria, Frequency, Burning, Urgency, Hematuria, Retention, Flank Pain Musculoskeletal: Reports: Foot Pain (Neuropathy as below). Denies: Neck Pain, Shoulder Pain, Arm Pain, Back Pain, Leg Pain, Joint Pain, Joint Swelling Skin: Reports: Bruising (Stable). Denies: Pallor, Diaphoresis, Pruritis, Rash Neurological: Reports: Numbness (Stable by history as above), Paresthesia, Tingling. Denies: Confusion, Dizziness, Headache, Pre-Existing Deficit, Tremors , Trouble Speaking, Difficulty Walking, Weakness, Change in Speech, Gait Disturbance Psychiatric: Reports: No Symptoms. Denies: Confusion, Depression, Anxiety, Agitation, Cravings, Hallucinations - Patient Data Vitals - Most Recent: Last Vital Signs Temp 36.7 C 07/02/18 07:55 Pulse 76 07/02/18 07:55 Resp 16 07/02/18 07:55 BP 147/59 H 07/02/18 07:55 Pulse Ox 100 07/02/18 07:55 Vital Signs - 24 hr 07/01/18 07/01/18 07/01/18 19:05 19:18 19:25 Temperature [ 37.1 C Temporal] Pulse, Peripheral Pulse, 73 75 Peripheral [ Right Pulse Oximetry] Respiratory 20 18 Rate Blood Pressure Blood Pressure [Left Upper Arm ] Blood Pressure 211/108 H 218/71 H 210/82 H [Right Upper Arm] O2 Sat by Pulse 100 98 Oximetry O2 Sat by Pulse Oximetry [ Nasal Cannula] 07/01/18 07/01/18 07/01/18 19:33 19:48 20:07 Temperature [ Temporal] Pulse, Peripheral Pulse, 76 68 69 Peripheral [ Right Pulse Oximetry] Respiratory 20 18 18 Rate Blood Pressure Blood Pressure 173/83 H 194/73 H [Left Upper Arm ] Blood Pressure 195/81 H [Right Upper Arm] O2 Sat by Pulse 98 97 Oximetry O2 Sat by Pulse Oximetry [ Nasal Cannula] 07/01/18 07/01/18 07/01/18 20:18 20:23 20:34 Temperature [ Temporal] Pulse, Peripheral Pulse, 67 73 Peripheral [ Right Pulse Oximetry] Respiratory 14 14 Rate Blood Pressure 197/64 H Blood Pressure 197/64 H 134/62 [Left Upper Arm ] Blood Pressure [Right Upper Arm] O2 Sat by Pulse 100 100 Oximetry O2 Sat by Pulse Oximetry [ Nasal Cannula] 07/01/18 07/01/18 07/01/18 20:48 21:03 21:18 Temperature [ Temporal] Pulse, Peripheral Pulse, 70 69 68 Peripheral [ Right Pulse Oximetry] Respiratory 15 17 16 Rate Blood Pressure Blood Pressure 99/76 120/51 L [Left Upper Arm ] Blood Pressure 105/51 L [Right Upper Arm] O2 Sat by Pulse 100 100 100 Oximetry O2 Sat by Pulse Oximetry [ Nasal Cannula] 07/01/18 07/02/18 07/02/18 21:40 00:00 02:00 Temperature [ 36.4 C 36.5 C Temporal] Pulse, Peripheral Pulse, 69 65 68 Peripheral [ Right Pulse Oximetry] Respiratory 15 18 17 Rate Blood Pressure Blood Pressure 113/52 L 152/59 H 132/45 L [Left Upper Arm ] Blood Pressure [Right Upper Arm] O2 Sat by Pulse 100 96 96 Oximetry O2 Sat by Pulse 100 Oximetry [ Nasal Cannula] 07/02/18 07/02/18 07/02/18 04:00 06:00 07:55 Temperature [ 36.3 C 36.7 C 36.7 C Temporal] Pulse, Peripheral Pulse, 75 68 76 Peripheral [ Right Pulse Oximetry] Respiratory 16 16 16 Rate Blood Pressure Blood Pressure 160/80 H 157/60 H 147/59 H [Left Upper Arm ] Blood Pressure [Right Upper Arm] O2 Sat by Pulse 100 100 100 Oximetry O2 Sat by Pulse Oximetry [ Nasal Cannula] 07/02/18 08:22 Temperature [ Temporal] Pulse, 76 Peripheral Pulse, Peripheral [ Right Pulse Oximetry] Respiratory Rate Blood Pressure 147/59 H Blood Pressure [Left Upper Arm ] Blood Pressure [Right Upper Arm] O2 Sat by Pulse Oximetry O2 Sat by Pulse Oximetry [ Nasal Cannula] Weight - Most Recent: 62.051 kg I&O - Last 24 hours: Intake & Output 07/01/18 07/02/18 07/02/18 22:59 06:59 14:59 Intake Total 32 60 Output Total 400 400 Balance -368 -340 Imaging Impressions - Last 24 hrs: information services assistant shows sinus rhythm with exception of occasional uniform PVCs with no other cardiac arrhythmia with average heart rate in the 60s to 70s. Chest x-ray, portable, on 07/01 shows mild COPD changes with no pulmonary infiltrates or pneumothorax. Mild aortic valve calcification with mild centralized CHF and/or pulmonary hypertension. Lab Results - Last 24 hrs: Laboratory Results - last 24 hr 07/01/18 07/01/18 07/01/18 Range/Units 19:45 19:45 19:45 WBC 8.1 (4.0-10.2) K/uL RBC 3.98 (3.77-5.09) M/uL Hgb 11.9 (11.7-15.5) g/dL Hct 36.1 (34.0-46.0) % MCV 90.7 (84.0-98.0) fL MCH 29.9 (28.2-33.3) pg MCHC 33.0 (31.7-36.0) g/dL RDW 14.6 H (11.2-14.1) % Plt Count 293 (150-350) K/uL Neut % (Auto) 70.3 (45.0-80.0) % Lymph % (Auto) 20.2 (10.0-50.0) % [place] % (Auto) 8.1 (2.0-14.0) % Eos % (Auto) 0.9 (0.0-5.0) % Baso % (Auto) 0.5 (0.0-2.0) % Neut # (Auto) 5.69 (1.40-7.00) K/uL Lymph # (Auto) 1.64 (0.50-3.50) K/uL [place] # (Auto) 0.66 (0.00-1.00) K/uL Eos # (Auto) 0.07 (0.00-0.50) K/uL Baso # (Auto) 0.04 (0.00-0.20) K/uL PT 25.7 H (9.5-12.0) SEC INR 2.4 APTT 34.5 H (21.0-31.3) SEC D-Dimer, Quantitative < 100 (0-400) ng/mL Sodium (136-145) mmol/L Potassium (3.5-5.1) mmol/L Chloride (98-107) mmol/L Carbon Dioxide (21.0-32.0) mmol/L BUN (7-18) mg/dL Creatinine (0.51-1.17) mg/dL Est Cr Clr Drug Dosing Estimated GFR (MDRD) mL/min Glucose (74-106) mg/dL Hemoglobin A1c (4.3-5.7) % Lactic Acid (0.4-2.0) mmol/L Uric Acid (2.6-7.2) mg/dL Calcium (8.5-10.1) mg/dL Magnesium (1.8-2.4) mg/dL Total Bilirubin (0.2-1.0) mg/dL AST (15-37) U/L ALT (12-78) U/L Alkaline Phosphatase (46-116) IU/L Creatine Kinase (26-308) U/L Creatine Kinase Index (0.0-2.5) % CK-MB (CK-2) (0.00-3.60) ng/mL Troponin I (0.000-0.056) ng/mL NT-Pro-B Natriuret Pep (0-125) pg/mL Total Protein (6.4-8.2) g/dL Albumin (3.4-5.0) g/dL Triglycerides (30-150) mg/dL Cholesterol (100-200) mg/dL LDL Cholesterol, Calc (0-100) mg/dL HDL Cholesterol (40-60) mg/dL TSH, Ultra Sensitive (0.358-3.740) mIU/mL 07/01/18 07/01/18 07/02/18 Range/Units 19:45 19:45 06:35 WBC 6.7 (4.0-10.2) K/uL RBC 3.30 L (3.77-5.09) M/uL Hgb 9.9 L D (11.7-15.5) g/dL Hct 30.3 L (34.0-46.0) % MCV 91.8 (84.0-98.0) fL MCH 30.0 (28.2-33.3) pg MCHC 32.7 (31.7-36.0) g/dL RDW 14.7 H (11.2-14.1) % Plt Count 251 (150-350) K/uL Neut % (Auto) 58.2 (45.0-80.0) % Lymph % (Auto) 29.7 (10.0-50.0) % [place] % (Auto) 9.9 (2.0-14.0) % Eos % (Auto) 1.8 (0.0-5.0) % Baso % (Auto) 0.4 (0.0-2.0) % Neut # (Auto) 3.88 (1.40-7.00) K/uL Lymph # (Auto) 1.98 (0.50-3.50) K/uL [place] # (Auto) 0.66 (0.00-1.00) K/uL Eos # (Auto) 0.12 (0.00-0.50) K/uL Baso # (Auto) 0.03 (0.00-0.20) K/uL PT (9.5-12.0) SEC INR APTT (21.0-31.3) SEC D-Dimer, Quantitative (0-400) ng/mL Sodium 139 (136-145) mmol/L Potassium 4.3 (3.5-5.1) mmol/L Chloride 101 (98-107) mmol/L Carbon Dioxide 26.9 (21.0-32.0) mmol/L BUN 21 H (7-18) mg/dL Creatinine 0.84 (0.51-1.17) mg/dL Est Cr Clr Drug Dosing TNP Estimated GFR (MDRD) > 60 mL/min Glucose 98 (74-106) mg/dL Hemoglobin A1c (4.3-5.7) % Lactic Acid 0.8 (0.4-2.0) mmol/L Uric Acid 4.0 (2.6-7.2) mg/dL Calcium 9.4 (8.5-10.1) mg/dL Magnesium 2.2 (1.8-2.4) mg/dL Total Bilirubin 0.3 (0.2-1.0) mg/dL AST 26 (15-37) U/L ALT 27 (12-78) U/L Alkaline Phosphatase 59 (46-116) IU/L Creatine Kinase 56 (26-308) U/L Creatine Kinase Index 1.6 (0.0-2.5) % CK-MB (CK-2) 0.90 (0.00-3.60) ng/mL Troponin I 0.065 H* (0.000-0.056) ng/mL NT-Pro-B Natriuret Pep 901 H (0-125) pg/mL Total Protein 7.6 (6.4-8.2) g/dL Albumin 4.1 (3.4-5.0) g/dL Triglycerides (30-150) mg/dL Cholesterol (100-200) mg/dL LDL Cholesterol, Calc (0-100) mg/dL HDL Cholesterol (40-60) mg/dL TSH, Ultra Sensitive 1.080 (0.358-3.740) mIU/mL 07/02/18 07/02/18 Range/Units 06:35 06:35 WBC (4.0-10.2) K/uL RBC (3.77-5.09) M/uL Hgb (11.7-15.5) g/dL Hct (34.0-46.0) % MCV (84.0-98.0) fL MCH (28.2-33.3) pg MCHC (31.7-36.0) g/dL RDW (11.2-14.1) % Plt Count (150-350) K/uL Neut % (Auto) (45.0-80.0) % Lymph % (Auto) (10.0-50.0) % [place] % (Auto) (2.0-14.0) % Eos % (Auto) (0.0-5.0) % Baso % (Auto) (0.0-2.0) % Neut # (Auto) (1.40-7.00) K/uL Lymph # (Auto) (0.50-3.50) K/uL [place] # (Auto) (0.00-1.00) K/uL Eos # (Auto) (0.00-0.50) K/uL Baso # (Auto) (0.00-0.20) K/uL PT (9.5-12.0) SEC INR APTT (21.0-31.3) SEC D-Dimer, Quantitative (0-400) ng/mL Sodium 141 (136-145) mmol/L Potassium 3.8 (3.5-5.1) mmol/L Chloride 103 (98-107) mmol/L Carbon Dioxide 29.8 (21.0-32.0) mmol/L BUN 21 H (7-18) mg/dL Creatinine 1.06 (0.51-1.17) mg/dL Est Cr Clr Drug Dosing TNP Estimated GFR (MDRD) 49 mL/min Glucose 87 (74-106) mg/dL Hemoglobin A1c 5.7 (4.3-5.7) % Lactic Acid (0.4-2.0) mmol/L Uric Acid (2.6-7.2) mg/dL Calcium 8.7 (8.5-10.1) mg/dL Magnesium (1.8-2.4) mg/dL Total Bilirubin 0.4 (0.2-1.0) mg/dL AST 19 (15-37) U/L ALT 23 (12-78) U/L Alkaline Phosphatase 44 L (46-116) IU/L Creatine Kinase 34 (26-308) U/L Creatine Kinase Index 1.5 (0.0-2.5) % CK-MB (CK-2) 0.50 (0.00-3.60) ng/mL Troponin I 0.074 H* (0.000-0.056) ng/mL NT-Pro-B Natriuret Pep 1234 H (0-125) pg/mL Total Protein 6.2 L (6.4-8.2) g/dL Albumin 3.3 L (3.4-5.0) g/dL Triglycerides 119 (30-150) mg/dL Cholesterol 229 H (100-200) mg/dL LDL Cholesterol, Calc 131 H (0-100) mg/dL HDL Cholesterol 74 H (40-60) mg/dL TSH, Ultra Sensitive (0.358-3.740) mIU/mL Laboratory Tests 07/01/18 07/01/18 07/01/18 Range/Units 19:45 19:45 19:45 WBC 8.1 (4.0-10.2) K/uL RBC 3.98 (3.77-5.09) M/uL Hgb 11.9 (11.7-15.5) g/dL Hct 36.1 (34.0-46.0) % MCV 90.7 (84.0-98.0) fL MCH 29.9 (28.2-33.3) pg MCHC 33.0 (31.7-36.0) g/dL RDW 14.6 H (11.2-14.1) % Plt Count 293 (150-350) K/uL Neut % (Auto) 70.3 (45.0-80.0) % Lymph % (Auto) 20.2 (10.0-50.0) % [place] % (Auto) 8.1 (2.0-14.0) % Eos % (Auto) 0.9 (0.0-5.0) % Baso % (Auto) 0.5 (0.0-2.0) % Neut # (Auto) 5.69 (1.40-7.00) K/uL Lymph # (Auto) 1.64 (0.50-3.50) K/uL [place] # (Auto) 0.66 (0.00-1.00) K/uL Eos # (Auto) 0.07 (0.00-0.50) K/uL Baso # (Auto) 0.04 (0.00-0.20) K/uL PT 25.7 H (9.5-12.0) SEC INR 2.4 APTT 34.5 H (21.0-31.3) SEC D-Dimer, Quantitative < 100 (0-400) ng/mL Sodium (136-145) mmol/L Potassium (3.5-5.1) mmol/L Chloride (98-107) mmol/L Carbon Dioxide (21.0-32.0) mmol/L BUN (7-18) mg/dL Creatinine (0.51-1.17) mg/dL Est Cr Clr Drug Dosing Estimated GFR (MDRD) mL/min Glucose (74-106) mg/dL Hemoglobin A1c (4.3-5.7) % Lactic Acid (0.4-2.0) mmol/L Uric Acid (2.6-7.2) mg/dL Calcium (8.5-10.1) mg/dL Magnesium (1.8-2.4) mg/dL Total Bilirubin (0.2-1.0) mg/dL AST (15-37) U/L ALT (12-78) U/L Alkaline Phosphatase (46-116) IU/L Creatine Kinase (26-308) U/L Creatine Kinase Index (0.0-2.5) % CK-MB (CK-2) (0.00-3.60) ng/mL Troponin I (0.000-0.056) ng/mL NT-Pro-B Natriuret Pep (0-125) pg/mL Total Protein (6.4-8.2) g/dL Albumin (3.4-5.0) g/dL Triglycerides (30-150) mg/dL Cholesterol (100-200) mg/dL LDL Cholesterol, Calc (0-100) mg/dL HDL Cholesterol (40-60) mg/dL TSH, Ultra Sensitive (0.358-3.740) mIU/mL 07/01/18 07/01/18 07/02/18 Range/Units 19:45 19:45 06:35 WBC 6.7 (4.0-10.2) K/uL RBC 3.30 L (3.77-5.09) M/uL Hgb 9.9 L D (11.7-15.5) g/dL Hct 30.3 L (34.0-46.0) % MCV 91.8 (84.0-98.0) fL MCH 30.0 (28.2-33.3) pg MCHC 32.7 (31.7-36.0) g/dL RDW 14.7 H (11.2-14.1) % Plt Count 251 (150-350) K/uL Neut % (Auto) 58.2 (45.0-80.0) % Lymph % (Auto) 29.7 (10.0-50.0) % [place] % (Auto) 9.9 (2.0-14.0) % Eos % (Auto) 1.8 (0.0-5.0) % Baso % (Auto) 0.4 (0.0-2.0) % Neut # (Auto) 3.88 (1.40-7.00) K/uL Lymph # (Auto) 1.98 (0.50-3.50) K/uL [place] # (Auto) 0.66 (0.00-1.00) K/uL Eos # (Auto) 0.12 (0.00-0.50) K/uL Baso # (Auto) 0.03 (0.00-0.20) K/uL PT (9.5-12.0) SEC INR APTT (21.0-31.3) SEC D-Dimer, Quantitative (0-400) ng/mL Sodium 139 (136-145) mmol/L Potassium 4.3 (3.5-5.1) mmol/L Chloride 101 (98-107) mmol/L Carbon Dioxide 26.9 (21.0-32.0) mmol/L BUN 21 H (7-18) mg/dL Creatinine 0.84 (0.51-1.17) mg/dL Est Cr Clr Drug Dosing TNP Estimated GFR (MDRD) > 60 mL/min Glucose 98 (74-106) mg/dL Hemoglobin A1c (4.3-5.7) % Lactic Acid 0.8 (0.4-2.0) mmol/L Uric Acid 4.0 (2.6-7.2) mg/dL Calcium 9.4 (8.5-10.1) mg/dL Magnesium 2.2 (1.8-2.4) mg/dL Total Bilirubin 0.3 (0.2-1.0) mg/dL AST 26 (15-37) U/L ALT 27 (12-78) U/L Alkaline Phosphatase 59 (46-116) IU/L Creatine Kinase 56 (26-308) U/L Creatine Kinase Index 1.6 (0.0-2.5) % CK-MB (CK-2) 0.90 (0.00-3.60) ng/mL Troponin I 0.065 H* (0.000-0.056) ng/mL NT-Pro-B Natriuret Pep 901 H (0-125) pg/mL Total Protein 7.6 (6.4-8.2) g/dL Albumin 4.1 (3.4-5.0) g/dL Triglycerides (30-150) mg/dL Cholesterol (100-200) mg/dL LDL Cholesterol, Calc (0-100) mg/dL HDL Cholesterol (40-60) mg/dL TSH, Ultra Sensitive 1.080 (0.358-3.740) mIU/mL 07/02/18 07/02/18 07/02/18 Range/Units 06:35 06:35 08:40 WBC (4.0-10.2) K/uL RBC (3.77-5.09) M/uL Hgb (11.7-15.5) g/dL Hct (34.0-46.0) % MCV (84.0-98.0) fL MCH (28.2-33.3) pg MCHC (31.7-36.0) g/dL RDW (11.2-14.1) % Plt Count (150-350) K/uL Neut % (Auto) (45.0-80.0) % Lymph % (Auto) (10.0-50.0) % [place] % (Auto) (2.0-14.0) % Eos % (Auto) (0.0-5.0) % Baso % (Auto) (0.0-2.0) % Neut # (Auto) (1.40-7.00) K/uL Lymph # (Auto) (0.50-3.50) K/uL [place] # (Auto) (0.00-1.00) K/uL Eos # (Auto) (0.00-0.50) K/uL Baso # (Auto) (0.00-0.20) K/uL PT (9.5-12.0) SEC INR 2.7 APTT (21.0-31.3) SEC D-Dimer, Quantitative (0-400) ng/mL Sodium 141 (136-145) mmol/L Potassium 3.8 (3.5-5.1) mmol/L Chloride 103 (98-107) mmol/L Carbon Dioxide 29.8 (21.0-32.0) mmol/L BUN 21 H (7-18) mg/dL Creatinine 1.06 (0.51-1.17) mg/dL Est Cr Clr Drug Dosing TNP Estimated GFR (MDRD) 49 mL/min Glucose 87 (74-106) mg/dL Hemoglobin A1c 5.7 (4.3-5.7) % Lactic Acid (0.4-2.0) mmol/L Uric Acid (2.6-7.2) mg/dL Calcium 8.7 (8.5-10.1) mg/dL Magnesium (1.8-2.4) mg/dL Total Bilirubin 0.4 (0.2-1.0) mg/dL AST 19 (15-37) U/L ALT 23 (12-78) U/L Alkaline Phosphatase 44 L (46-116) IU/L Creatine Kinase 34 (26-308) U/L Creatine Kinase Index 1.5 (0.0-2.5) % CK-MB (CK-2) 0.50 (0.00-3.60) ng/mL Troponin I 0.074 H* (0.000-0.056) ng/mL NT-Pro-B Natriuret Pep 1234 H (0-125) pg/mL Total Protein 6.2 L (6.4-8.2) g/dL Albumin 3.3 L (3.4-5.0) g/dL Triglycerides 119 (30-150) mg/dL Cholesterol 229 H (100-200) mg/dL LDL Cholesterol, Calc 131 H (0-100) mg/dL HDL Cholesterol 74 H (40-60) mg/dL TSH, Ultra Sensitive (0.358-3.740) mIU/mL JUN Results - Last 24 hrs: None Med Orders - Current: Current Medications Acetaminophen (Tylenol) 650 mg PO Q4H PRN PRN Reason: Pain Amlodipine Besylate (Norvasc) 10 mg PO 1800 [facility] Artificial Tears (Liquitears 1.4% Ophth Soln) 0 ml EYEBOTH Q1H PRN PRN Reason: Dry Eyes Aspirin (Halfprin) 81 mg PO DAILY [facility] Clopidogrel Bisulfate (Plavix) 75 mg PO DAILY [facility] Furosemide (Lasix) 40 mg IVPUSH Q8H [facility] Nitroglycerin/Dextrose (Nitroglycerin 25 Mg/D5w 250 Ml) 25 mg in 250 mls @ 6 mls/hr IV TITRATE [facility] Last Infusion: 07/02/18 06:09 Dose: 15 mcg/min, 9 mls/hr Sodium Chloride (Normal Saline) 1,000 mls @ 30 mls/hr IV ASDIRECTED [facility] Last Admin: 07/01/18 20:42 Dose: 30 mls/hr Lactobacillus Rhamnosus (Culturelle) 1 cap PO BEDTIME [facility] Levothyroxine Sodium (Synthroid) 50 mcg PO DAILY [facility] Lorazepam (Ativan) 0.5 mg PO DAILY [facility] Lorazepam (Ativan) 0.5 mg PO Q8HR PRN PRN Reason: Anxiety Lorazepam (Ativan) 1 mg PO BEDTIME [facility] Last Admin: 07/01/18 22:39 Dose: 1 mg Metoprolol Tartrate (Lopressor) 12.5 mg PO Q12HR@0800,2000 [facility] Multivitamins/Minerals/Vitamin C (Tab-A-Rajat) 1 tab PO DAILY [facility] Nitroglycerin (Nitrostat) 0.4 mg SL ONETIME STA Stop: 07/02/18 20:21 Last Admin: 07/01/18 20:23 Dose: 0.4 mg Non-Formulary Medication (Lutein Extract/Zeaxanthin Ext [Lutein 15 Mg Softgel]) 1 cap PO BID [facility] Potassium Chloride (Klor-Con M20) 20 meq PO TID [facility] Prednisone (Prednisone) 5 mg PO DAILY [facility] Senna/Docusate Sodium (Senna Plus) 1 tab PO BID [facility] Sertraline HCl (Zoloft) 50 mg PO DAILY [facility] Sodium Chloride (Saline Flush) 10 ml FLUSH ASDIRECTED PRN PRN Reason: Keep Vein Open Last Admin: 07/01/18 20:26 Dose: 10 ml Sodium Chloride (Saline Flush) 10 ml FLUSH Q12HR PRN PRN Reason: Keep Vein Open Warfarin Sodium (Coumadin) 1 mg PO TuThFr@1800 NIKITA Last Admin: 07/01/18 22:39 Dose: 1 mg Warfarin Sodium (Coumadin) 2 mg PO SuMoWeSa@1800 NIKITA Discontinued Medications Famotidine (Pepcid) 40 mg IVPUSH ONETIME ONE Stop: 07/01/18 19:25 Last Admin: 07/01/18 19:48 Dose: 40 mg Furosemide (Lasix) 60 mg IVPUSH NOW ONE Stop: 07/01/18 20:20 Last Admin: 07/01/18 20:24 Dose: 60 mg Labetalol HCl (Normodyne) 10 mg IVPUSH ONETIME ONE; Protocol Stop: 07/01/18 19:27 Last Admin: 07/01/18 19:43 Dose: 10 mg Lorazepam (Ativan) 1 mg PO BEDTIME NIKITA - Exam Quality Assessment: Reports: Supplemental Oxygen, DVT Prophylaxis (On Coumadin) . Denies: Central Line/PICC, Urine Catheter, Skin Breakdown, Restraints General: Reports: Alert, Oriented, Cooperative, No Acute Distress HEENT: Reports: Pupils Equal, Pupils Reactive, EOMI, Mucous Membr. Moist/[place] Neck: Reports: Supple, Trachea Midline, No JVD, No Thyromegaly, Carotid Bruit ( Moderate bilateral carotid bruits versus transmitted heart sounds). Denies: Lymphadenopathy Lungs: Reports: Normal Respiratory Effort, Rales (Bilateral basilar ralesmild) . Denies: Rhonchi, Rub, Wheezing Cardiovascular: Reports: Regular Rate, Murmurs (23/6 TIFFANIE of the aortic and mitral valves). Denies: Regular Rhythm (Occasional extrasystoles), Gallops, Rubs GI/Abdominal Exam: Normal Bowel Sounds, Soft, Non-Tender, No Organomegaly, No Distention, No Abnormal Bruit, No Mass, Pelvis Stable, Other (Obese). No: Guarding (Female) Exam: Deferred Rectal (Female) Exam: Deferred Back Exam: Reports: Normal Inspection, Full Range of Motion. Denies: CVA Tenderness (L), CVA Tenderness (R), Muscle Spasm Extremities: Normal Inspection, Normal Range of Motion, Non-Tender, No Pedal Edema, Normal Capillary Refill. No: Pedal Edema (Resolved from admission), Sergio's Sign Skin: Reports: Warm, Dry, Intact, Ecchymosis (Stable bilateral upper extremity ecchymosis with no significant petechiae) Psy/Mental Status: Reports: Alert, Normal Affect, Normal Mood. Denies: Agitated , Hallucinations, Withdrawal Symptoms EKG INTERPRETATION EKG Date: 07/02/18 Time: 07:37 Rhythm: Other (Occasional PVCs) Rate (Beats/Min): 76 [place]: Normal (Neutral cardiac axis) P-Wave: Present (With extreme poor R-wave progression in the anterior leads) QRS: Normal (QRS interval of 0.09 seconds with some repolarization changes) ST-T: Other (New nonspecific ST changes in leads 2, 3, aVF, and V6 with stable T -wave inversion in lead aVL) QT: Normal NM/PQ Interval: 0.18 seconds Comparison: Change From Previous EKG (As above since 07/01/18) EKG Interpretation Comments: 1. Nonspecific inferolateral ST changes 2. Repolarization changes 3. PVCs
[2018-07-02] MEDS: Sodium Chloride 0.9% 10 ML Syringe FLUSH PRN (08:26)
[2018-07-02 13:06] VITALS: BP 128/54
[2018-07-02] MEDS ORDERED: amLODIPine 5 MG Tab PO SCH (18:00)
[2018-07-02] MEDS ORDERED: Lactobacillus Rhamnosus GG (Probiotic) Cap PO SCH (20:00)
[2018-07-03] MEDS ORDERED: Warfarin 2 MG Tab PO SCH (18:00)
== END 2018-07-02 13:05 ==
LOC: LL.ED 19:01 → LL.MS 21:15 → UNDOADMOB 21:15
PROVIDERS: ADMIT Family Medicine; ATTEND Family Medicine
DX: I11.0 Hypertensive heart disease with heart failure (principal); I50.9 Heart failure, unspecified; I25.10 Atherosclerotic heart disease of native coronary artery without angina pectoris; I49.3 Ventricular premature depolarization; I38 Endocarditis, valve unspecified; J43.1 Panlobular emphysema; K21.9 Gastro-esophageal reflux disease without esophagitis; E03.9 Hypothyroidism, unspecified; E78.2 Mixed hyperlipidemia; G62.9 Polyneuropathy, unspecified; M15.0 Primary generalized (osteo)arthritis; N28.9 Disorder of kidney and ureter, unspecified; F41.8 Other specified anxiety disorders; D64.9 Anemia, unspecified; Z79.01 Long term (current) use of anticoagulants; Z79.82 Long term (current) use of aspirin; Z79.899 Other long term (current) drug therapy
CPT/HCPCS: 36415; 71045; 80053; 80061; 82550; 82553; 83036; 83605; 83735; 83880; 84443; 84484; 84550; 85025; 85379; 85610; 85730; 93005; 96365; 96366; 96375; 96376; 99285; A9270-GY; G0378; J1940; J3490; J7030

== ENCOUNTER 2018-08-10 14:42 | Emergency (ER) | payer MEDICARE, OTHER ==
[2018-08-10] MEDS ORDERED: Famotidine 20 MG/2 ML SDV IVPUSH ONE (14:58)
--- NOTE | 2018-08-10 14:58 | EDM.PDOC ---
ED HPI GENERAL MEDICAL PROBLEM - General Chief Complaint: Upper Extremity Injury/Pain Stated Complaint: Fall; rib pain, left wrist pain Time Seen by Provider: 08/10/18 14:45 Source of Information: Reports: Patient, Family (Granddaughters 2), Old Records ([facility] chart/EMR), Other ([facility]) History Limitations: Reports: No Limitations - History of Present Illness INITIAL COMMENTS - FREE TEXT/NARRATIVE: The patient was brought to the emergency room via ambulance with lab instructor accompaniment with no treatment prior to arrival. Note that at about 14:00 hours the patient had a sudden onset of severe dizziness after turning her head to the left with mild orthostatic episode, and the patient falling onto her left side with initial mild left wrist pain however persistent 9/10 sharp left lower lateral rib discomfort. She has had problems with intermittent dizziness when turning her head to the left during the last couple of months with no history of syncopal/near syncopal episode, including today. The patient denies any chest pain/pressure, heart flutter, orthopnea, diaphoresis, paresthesias, recent decreased exercise tolerance, or any other anginal-type symptoms. No recent history of abdominal pain, heartburn, nausea, diarrhea, melena, gross hematochezia, or any food intolerance, including fatty foods, etc.. She also denies any gross hematuria, colic, or other UTI symptoms. The patient also denies any recent fever, cough, wheezing, dyspnea, etc.. No history of significant head injury, recent headaches, visual changes, diplopia, change in mental status, or other change in neurological status. The patient was admitted in this facility on 07/01/18 for hypertension, CHF, and possible LA and subsequently transferred to [facility] in [place] on 07/02 with discharged from that facility on 07/07/18. Her blood pressures have apparently been under good control since that time. Onset: Today, Sudden Onset Date: 08/10/18 Onset Time: 14:00 Duration: Constant Location: Reports: Chest (Left chest wall), Upper Extremity, Left (Initially complained of possible left wrist pain however completely resolved by time of my exam). Denies: Head, Face, Neck, Abdomen, Back, Pelvis, Upper Extremity, Right, Lower Extremity, Left, Lower Extremity, Right, Radiates to Quality: Reports: Sharp, Stabbing Severity: Severe Improves with: Reports: Rest Worsens with: Reports: Movement Context: Reports: Trauma (As above). Denies: Activity, Sick Contact Associated Symptoms: Reports: Chest Pain (Chest wall pain). Denies: Confusion, Cough, Diaphoresis, Fever/Chills, Headaches, Loss of Appetite, Malaise, Nausea/ Vomiting, Seizure, Shortness of Breath, Syncope, Weakness Treatments OFFICE ADMIN: Reports: Other (see below) (None) Left Axillary Pain Score (Numeric/FACES): 9 (Left chest wall) - Related Data Allergies Allergy/AdvReac Type Severity Reaction Status Date / Time atorvastatin calcium Allergy Lightheaded Verified 08/10/18 14:51 [From Lipitor] ness benzalkonium chloride Allergy Redness Verified 08/10/18 14:51 [From Travatan] celecoxib [From Celebrex] Allergy Change Verified 08/10/18 14:51 Mental Status erythromycin base Allergy Hives Verified 08/10/18 14:51 [Erythromycin Base] iodine Allergy Other Verified 08/10/18 14:51 nifedipine Allergy Swelling Verified 08/10/18 14:51 Penicillins Allergy Swelling Verified 08/10/18 14:51 rofecoxib [From Vioxx] Allergy Change Verified 08/10/18 14:51 Mental Status rosuvastatin calcium Allergy Lightheaded Verified 08/10/18 14:51 [From Crestor] ness sulfamethoxazole Allergy Hives Verified 08/10/18 14:51 [From Sulfamethoprim] travoprost [From Travatan] Allergy Redness Verified 08/10/18 14:51 trimethoprim Allergy Hives Verified 08/10/18 14:51 [From Sulfamethoprim] valdecoxib [From Bextra] Allergy Change Verified 08/10/18 14:51 Mental Status soy Allergy Nausea and Uncoded 08/10/18 14:51 Vomiting Home Meds: Home Meds Levothyroxine Sodium [Unithroid] 50 mcg PO DAILY 07/15/16 [History] Multivitamin [Daily Rajat] 1 tab PO DAILY 07/15/16 [History] Nitroglycerin [Nitrostat] 0.4 mg SL Q5M PRN 07/15/16 [History] Cholecalciferol (Vitamin D3) [Vitamin D3] 2,000 unit PO BEDTIME 09/30/16 [ History] Acetaminophen [Tylenol Arthritis] 1,300 mg PO BID 12/05/16 [History] L.acidoph,Paracasei, B.lactis [Probiotic] 1 each PO BEDTIME 12/05/16 [History] LORazepam 1 mg PO BEDTIME 06/10/17 [History] LORazepam [Ativan] 0.5 mg PO DAILY 06/10/17 [History] Lutein Extract/Zeaxanthin Ext [Lutein 15 MG Softgel] 1 cap PO BID 06/10/17 [ History] Prednisone [IJP: Prednisone] 5 mg PO DAILY 06/10/17 [History] Sennosides/Docusate Sodium [Senna-S] 1 each PO BID 06/10/17 [History] Dextran 70/Hypromellose [Artificial Tears] 2 ml OP Q1H PRN 07/14/17 [History] Clopidogrel [Plavix] 75 mg PO DAILY #90 tablet 08/05/17 [Rx] Metoprolol Tartrate 12.5 mg PO Q12HR@0800,2000 #90 tablet 08/05/17 [Rx] Sertraline [Zoloft] 50 mg PO DAILY #90 tablet 08/05/17 [Rx] Aspirin [Adult Low Dose Aspirin EC] 81 mg PO DAILY 07/01/18 [History] Warfarin Sodium 1 tab PO ASDIRECTED 07/01/18 [History] amLODIPine Besylate [Amlodipine Besylate] 10 mg PO 1800 07/01/18 [History] Losartan Potassium 50 mg PO DAILY 08/10/18 [History] Past Medical History HEENT History: Reports: Allergic Rhinitis, Cataract, Glaucoma, Hard of Hearing, Impaired Vision, Other (See Below). Denies: Macular Degeneration, Retinal Detachment Other HEENT History: Patient wears trifocals, bilateral hearing aides with mildly suboptimal therapy. Cardiovascular History: Reports: Afib, Arrhythmia, Blood Clots/VTE/DVT, CAD, Cardiomyopathy, Heart Failure, Heart Murmur, High Cholesterol, Hypertension, PVD , Syncope, Other (See Below). Denies: Aneurysm Other Cardiovascular History: First degree A-V block, PVCs, PACs, distant brief atrial fibrillation. Non-STEMI on 05/11/17 with secondary syncope requiring procedures as below. Patient denies previous LA despite medical records; grade 2 diastolic dysfunction, moderate left ventricular hypertrophy and left atrial enlargement by echocardiogram, mild pulmonary valve insufficiency and mild to moderate tricuspid valve insufficiency with additional moderate to severe mitral valve insufficiency by echocardiogram, mild aortic valve sclerosis without stenosis, mild carotid occlusive, history of superficial thrombophlebitis and varicose veins, DVT of the proximal left femoral vein on 07/27/15 with right-sided PE on 05/08/16 and current warfarin therapy. Right renal artery stenosis as below. Varicose veins. History of d-dimer elevation. Respiratory History: Reports: Bronchitis, Recurrent, COPD, Intubation, Previous , PE, Sleep Apnea, SOB, Other (See Below). Denies: Asthma, Intubation, Difficult, Pneumothorax, Pulmonary Fibrosis, TB Other Respiratory History: Patient does use CPAP for her moderate to severe obstructive sleep apnea with previous history of nocturnal hypoxemia, PE as above, benign pulmonary nodules with previous left apical benign granuloma by CT scan on 05/08/16, COPD by chest x-ray with no medical therapy Gastrointestinal History: Reports: Chronic Constipation, Diverticulosis, GERD, Hiatal Hernia, Other (See Below). Denies: Celiac Disease, Cholelithiasis, Colon Polyp, Fecal Incontinence, Gastritis, GI Bleed, Hepatitis, Inflammatory Bowel Disease, Irritable Bowel Syndrome, Jaundice, Pancreatitis, PUD Other Gastrointestinal History: Probable benign right hepatic mass at about 2.[address] scan on 08/11/16, Benign hepatic cysts by CT scan on 02/18/16, fatty liver secondary to hyperlipidemia and small hiatal hernia by CT scan. Genitourinary History: Reports: Chronic Renal Insuffiency, Renal Disease, Urinary Incontinence, Other (See Below). Denies: Acute Renal Failure, Renal Calculus, STD Other Genitourinary History: kidney disease stage 3, bilateral benign renal cysts. History of left renal artery stenosis requiring stent placement as below. COMMUNITY HEALTH DIRECTOR History: Reports: Dysfunctional Uterine Bleeding, Fibroids, . Denies: Endometriosis : 2 Para: 2 LMP (Approximate): Other (See Below) Other COMMUNITY HEALTH DIRECTOR History: Full term without complications during pregnancies or deliveries. Surgical menopause as below. Musculoskeletal History: Reports: Arthritis, Back Pain, Chronic, Fibromyalgia, Gout, Neck Pain, Chronic, Osteoarthritis, Osteoporosis, RA. Denies: Amputation , Fracture, SLE Neurological History: Reports: CVA, Headaches, Chronic, Migraines, Other (See Below). 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 Denies: Abuse, Victim of, ADD, ADHD, Alzheimers Disease, Psych Hospitalization(s), Psychosis, PTSD, Suicide Attempt, Suicidal Ideation Other Psychiatric History: Previous Chronic narcotic use secondary to her fibromyalgia and arthritis. Endocrine/Metabolic History: Reports: Hypothyroidism, Osteopenia, Osteoporosis, Other (See Below). Denies: Diabetes, Gestational, Diabetes, Type I, Diabetes, Type II, Diabetes Mellitus, Type 3c, IDDM, Obesity/BMI 30+ Other Endocrine/Metabolic History: Hyponatremia secondary to CHF. Hypoalbuminemia. 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 Denies: AIDS, HIV, SLE Other Immunologic History: Immunosuppression secondary to chronic steroid therapy. Oncologic (Cancer) History: Reports: None. Denies: Basal Cell Carcinoma, Bladder, Breast, Cervix, Colon, Hodgkin's Lymphoma, Leukemia, Lymphoma, Malignant Melanoma, Non-Hodgkin's Lymphoma, Ovarian, Squamous Cell Carcinoma, Uterine Dermatologic History: Reports: Other (See Below). Denies: Eczema, Psoriasis Other Dermatologic History: Actinic keratosis of the nose previously treated. Large left lower leg hematoma and secondary cellulitis secondary to Coumadin therapy and injury requiring debridement and evacuation in 2018 as below. - Infectious Disease History Infectious Disease History: Reports: Chicken Pox, Measles, Mumps, Shingles. Denies: C-Difficile, Meningitis, Mononucleosis, MRSA, Pertussis (Whooping Cough) , Rheumatic Fever, Rubella, Scarlet Fever, TB, VRE - Past Surgical History Head Surgeries/Procedures: Reports: None HEENT Surgical History: Reports: Cataract Surgery, Oral Surgery, Other (See Below). Denies: Adenoidectomy, Eye Surgery, Laser Surgery, LASIK, Myringotomy w Tube(s), Tonsillectomy Other HEENT Surgeries/Procedures: Bilateral cataract surgery in 2012. Multiple teeth extractions with partial upper dentures. Cardiovascular Surgical History: Reports: Coronary Artery Stent, Percutaneous Transluminal Angioplasty, Varicose, Vascular Surgery, Other (See Below). Denies : AAA Repair Other Cardiovascular Surgeries/Procedures: Varicose vein stripping of the right leg in 1952. PTCA/stent 3 with 2 stents placed in the LAD and one stent placed in the circumflex coronary artery on 05/12/17. Left renal artery stent placement on 09/08/17. PICC line placed on 07/15/17. Respiratory Surgical History: Reports: None. Denies: Thoracentesis GI Surgical History: Reports: Appendectomy, Colonoscopy, Other (See Below). Denies: Cholecystectomy, Colon, EGD, Hernia, Abdominal, Hernia, Inguinal, Hernia Repair/Other, Polypectomy Other GI Surgeries/Procedures: Colonoscopy in the 1980s. Appendectomy concomitant with partial hysterectomy as below. Female Surgical History: Reports: Breast Biopsy, Hysterectomy, Salpingo- Oophorectomy, Other (See Below) Other Female Surgeries/Procedures: Left breast biopsy for benign disease in the . Partial hysterectomy with remaining left ovary secondary to dysfunctional uterine bleeding in the . Previous right-sided salpingo- oophorectomy prior to the above hysterectomy. Endocrine Surgical History: Reports: None. Denies: Thyroid Biopsy Neurological Surgical History: Reports: None. Denies: C-Spine, Discectomy, Laminectomy, Lumbar Spine, Spinal Fusion, Thoracic Spine, Vertebroplasty Musculoskeletal Surgical History: Reports: Arthroscopic Knee, Arthroscopic Procedure, Carpal Tunnel, Hip Replacement, Joint Replacement, Other (See Below) . Denies: Ganglion Cyst, ORIF, Shoulder Surgery Other Musculoskeletal Surgeries/Procedures:: Left hip TEP on 06/25/15. Right carpal tunnel release in about 2004. Left carpal tunnel release on 06/29/14. Right arthroscopic knee surgery in about 2007. Oncologic Surgical History: Reports: Biopsy of Breast, Other (See Below) Other Oncologic Surgeries/Procedures: For benign disease as above. Dermatological Surgical History: Reports: Other (See Below) Other Dermatological Surgeries/Procedures: Surgical debridement and evacuation of large hematoma of the left leg on 06/25/17. - Past Imaging History Past Imaging History: Reports: Angiography (IR angiogram of the renal arteries bilaterally on 09/08/17. Heart catheterization on 09/10/16 with ejection fraction of 75% and 90% stenosis of the LAD. Note previous apparent negative evaluation in about 1999 by patient history.), Cardiac Echo (Last cardiac echocardiogram on 05/11/17 with findings as above and ejection fraction of 70%.), Carotid US ( Last carotid artery Doppler studies on 04/13/18 showing 50% bilateral stenosis with previous evaluation on 11/02/09.), CAT Scan (CT of the head on 05/11/17. CT of the abdomen and pelvis on 08/12/16. CTA of the chest on 08/08/16. CT of the abdomen and pelvis on 02/04/10 and 10/22/14. CT of the chest on 05/08/16.), Mammogram (Last mammogram on 03/10/18), MRI (Lumbar spine and left hip on . Right knee on 01/22/11.), Sleep Study (02/13/16 and 10/21/15.), Stress Testing (Cardiolite stress test 05/11/17 with ejection fraction of 75% with previous evaluation on 01/17/17.), Ultrasound (Bilateral renal artery duplex evaluations on 07/03/18, 04/13/18 and 10/14/17. Complete bilateral renal ultrasounds with additional renal artery duplex evaluations on 09/03/17. Abdominal ultrasound on .), Venous Doppler (Bilateral legs negative on 05/08/16 and the left leg on 07/27/15 positive for DVT.) Social & Family History - Family History HEENT: Reports: Allergic Rhinitis, Retinal Detachment, Other (See Below). Denies: Cataract, Glaucoma, Macular Degeneration Other HEENT Family History: Daughter with retinal detachment and allergic rhinitis. Cardiac: Reports: Bypass, CAD, Heart Murmur, Heart Valve Replacement, High Cholesterol, Hypertension, LA, PVD/COD, Other (See Below). Denies: Afib, Aneurysm, Arrhythmia, Blood Clots/VTE/DVT, Syncope Other Cardiac Family History: Son with mechanical valve replacement and CABG x1 at about age 62, son also - also suffers from hypertension and hyperlipidemia, son with agent orange exposure Respiratory: Reports: Sleep Apnea, Other (See Below). Denies: Asthma, COPD, PE , Pneumothorax, TB Other Respiratory Family Hisory: Son with sleep apnea sleep apnea. GI: Reports: Celiac Disease, Other (See Below). Denies: Cholelithiasis, Colon Polyps, GERD, GI bleed, Inflammatory Bowel Disease, Irritable Bowel Syndrome Other GI Family History: Daughter with celiac disease : Reports: Renal Disease/Insufficiency, Other (See Below). Denies: Diabetic Nephropathy, Dialysis, Renal Calculus Other Family History: Mother with end-stage renal disease OBGYN: Reports: None. Denies: Dysfunctional uterine bleeding, Endometriosis, Recurrent Spontaneous Musculoskeletal: Reports: None. Denies: Arthritis, Gout, Osteoarthritis, RA, SLE Neurological: Reports: Migraines, Seizure, Other (See Below). Denies: Alzheimers Disease, Cerebral Aneurysms, CVA, Dementia, MS, TIA Other Neurological Family History: Granddaughter with seizures at age 19, 2 granddaughters with migraine headaches Psychiatric: Reports: Anxiety, Depression, Other (See Below). Denies: Abuse, Victim of, ADD, ADHD, Psych Hospitalization(s), Psychosis, PTSD, Suicide Attempt Other Psychiatric Family History: Son with anxiety depression disorder Endocrine/Metabolic: Reports: None. Denies: Diabetes, Gestational, Diabetes, Type I, Diabetes, type II, Diabetes Mellitus, Type 3c, Hypothyroidism, IDDM Hematologic: Reports: None. Denies: Anemia, SLE, Transfusion Reaction Immunologic: Reports: None. Denies: AIDS, HIV, SLE Dermatologic: Reports: Psoriasis, Other (See Below). Denies: Eczema Other Dermatologic Family History: Daughter with psoriasis Oncologic: Reports: Bone, Breast, Esophageal, Metastatic, Other (See Below). Denies: Cervix, Hodgkin's Lymphoma, Leukemia, Lymphoma, Non-Hodgkin's Lymphoma, Ovarian, Skin, Uterine Other Oncologic Family History: Daughter with history of breast cancer in her 50s with reoccurrence in her 60s. Sister with possible bone cancer fatal at age 18, sister with fatal throat cancer in her 60s, sister with fatal vaginal cancer in her 60s, father with fatal throat cancer with pulmonary metastases at age 77 - Tobacco Use Smoking Status *Q: Never Smoker Tobacco Use Within Last Twelve Months: No Used Tobacco, but Quit: No Smoking Cessation Information Provided To Patient: No Second Hand Smoke Exposure: No Second Hand Smoke Education Provided: No - Caffeine Use Caffeine Use: Reports: Coffee (4 cups per day). Denies: Energy Drinks, Soda, Tea - Alcohol Use Alcohol Use History: Yes Days Per Week of Alcohol Use: 0 Number of Drinks Per Day: 1 Number of Drinks Per Day Comment: Usually beer or wine on a monthly basis. No previous DWIs, problems with alcohol abuse, etc. 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 ED EXAM, GENERAL - Physical Exam Exam: See Below Exam Limited By: No Limitations General Appearance: Alert, WD/WN, No Apparent Distress Eye Exam: Bilateral Eye: EOMI, Normal Fundi, Normal Inspection (She is wearing glasses. No nystagmus including when turning her head to the left), PERRL Ears: Normal External Exam, Hearing Loss (Bilateral hearing aids with adequate effectiveness) Nose: Normal Inspection, Normal Mucosa, No Blood Throat/Mouth: Normal Lips. No: Normal Teeth (Multiple missing teeth with no acute caries or sign of injury; partial upper dentures), Normal Oropharynx, Normal Voice, No Airway Compromise, Dysphagia, Perioral Cyanosis Head: Atraumatic, Normocephalic. No: Facial Swelling, Facial Tenderness, Sinus Tenderness Neck: Supple, Non-Tender, Full Range of Motion, Carotid Bruit (Moderate bilateral carotid bruits versus transmitted heart sounds). No: Lymphadenopathy (L), Lymphadenopathy (R), Thyromegaly Respiratory/Chest: No Respiratory Distress, Normal Breath Sounds, No Accessory Muscle Use, Rales (Bilateral basilar ralesmild). No: Chest Non-Tender ( Moderate localized palpation pain over the inferior left anterior axillary line with no ecchymosis, crepitation, swelling, deformity, etc.), Pleural Rub, Retractions Cardiovascular: Normal Peripheral Pulses, No Edema, No Gallop, No JVD, No Rub, Systolic Murmur (23/6 TIFFANIE of the aortic and mitral valves), Extra Beats (PVCs by heart monitoroccasional; regular rate). No: Gallop/S3, Gallop/S4, Friction Rub Peripheral Pulses: 2+: Radial (L), Radial (R), Dorsalis Pedis (L), Dorsalis Pedis (R) GI/Abdominal: Normal Bowel Sounds, Soft, Non-Tender, No Organomegaly, No Distention, No Abnormal Bruit, No Mass, Pelvis Stable, Other (Obese). No: Guarding (Female) Exam: Deferred Rectal (Female) Exam: Deferred Back Exam: Normal Inspection, Full Range of Motion. No: CVA Tenderness (L), CVA Tenderness (R), Muscle Spasm Extremities: Normal Inspection, Normal Range of Motion, Non-Tender, No Pedal Edema, Normal Capillary Refill, Other (No left wrist tenderness, swelling, deformity, etc. with excellent range of motion and no sign of significant injury ). No: Sergio's Sign Neurological: Alert, Oriented, CN II-XII Intact, Normal Cognition, Normal Gait, Normal Reflexes (Negative Babinski's), No Motor/Sensory Deficits, Other ( Clinical orthostasis) Psychiatric: Normal Affect, Normal Mood Skin Exam: Warm, Dry, Intact, Normal Color, No Rash, Ecchymosis (Occasional secondary to Coumadin therapy). No: Diaphoretic, Petechiae, Wound/Incision Lymphatic: No Adenopathy EKG INTERPRETATION EKG Date: 08/10/18 Time: 14:22 Rhythm: Other (Normal sinus rhythm with occasional PVCs) [place]: Normal (Neutral cardiac axis) P-Wave: Present QRS: Normal (0.09 seconds) ST-T: Other (Resolved nonspecific ST changes and T-wave inversion in leads 2, 3 , and aVF with stable T-wave inversion in lead aVL) QT: Normal IA/PQ Interval: 0.19 seconds with diffuse biphasic P waves and extreme poor R- wave progression in the anterior leads Comparison: Change From Previous EKG (As above since 07/02/18) EKG Interpretation Comments: 1. No acute ischemic changes 2. Uniform PVCs 3. Left atrial enlargement 4. History of nonspecific inferior wall changes Course - Vital Signs Last Recorded V/S: Last Vital Signs Temp 36.9 C 08/10/18 14:45 Pulse 70 08/10/18 14:45 Resp 19 08/10/18 20:13 BP 175/62 H 08/10/18 20:13 Pulse Ox 98 08/10/18 20:13 Vital Signs - 24 hr 08/10/18 08/10/18 08/10/18 14:45 14:55 15:15 Temperature [ 36.9 C Oral] Pulse, 70 Peripheral [ Pulse Oximetry] Respiratory 17 15 16 Rate Blood Pressure 170/77 H 179/54 H 170/79 H [Right Upper Arm] O2 Sat by Pulse 99 99 99 Oximetry 08/10/18 08/10/18 08/10/18 15:30 15:45 16:00 Temperature [ Oral] Pulse, Peripheral [ Pulse Oximetry] Respiratory 20 19 19 Rate Blood Pressure 175/48 H 181/58 H 153/59 H [Right Upper Arm] O2 Sat by Pulse 99 99 100 Oximetry 08/10/18 08/10/18 08/10/18 16:15 16:30 16:45 Temperature [ Oral] Pulse, Peripheral [ Pulse Oximetry] Respiratory 16 15 16 Rate Blood Pressure 133/48 L 162/96 H 159/88 H [Right Upper Arm] O2 Sat by Pulse 94 L 100 99 Oximetry 08/10/18 08/10/18 08/10/18 17:00 17:15 18:00 Temperature [ Oral] Pulse, Peripheral [ Pulse Oximetry] Respiratory 18 18 17 Rate Blood Pressure 160/71 H [Right Upper Arm] O2 Sat by Pulse 98 98 99 Oximetry 08/10/18 08/10/18 08/10/18 18:15 18:30 18:45 Temperature [ Oral] Pulse, Peripheral [ Pulse Oximetry] Respiratory 17 17 17 Rate Blood Pressure 158/68 H 169/63 H [Right Upper Arm] O2 Sat by Pulse 99 98 98 Oximetry 08/10/18 08/10/18 19:00 20:13 Temperature [ Oral] Pulse, Peripheral [ Pulse Oximetry] Respiratory 16 19 Rate Blood Pressure 156/62 H 175/62 H [Right Upper Arm] O2 Sat by Pulse 98 98 Oximetry - Orders/Labs/Meds Orders: Active Orders 24 hr Category Date Time Status Cardiac Monitoring [RC] . DIRECTED Care 08/10/18 14:58 Active EKG Documentation Completion [RC] ASDIRECTED Care 08/10/18 14:58 Active Oxygen Therapy, ED [RC] PRN Care 08/10/18 14:58 Active Peripheral IV Care [RC] . DIRECTED Care 08/10/18 14:58 Active Pulse Oximetry [RC] CONTINUOUS Care 08/10/18 14:58 Active Up With Assistance [RC] PFP Care 08/10/18 14:58 Active Vital Signs [RC] PFP Care 08/10/18 14:58 Active Nothing per Oral Now Diet [DIET] Diet 08/10/18 Breakfast Active Chest PE [Ang Chest] [CT] Stat Exams 08/10/18 16:44 Taken Ribs 2V w Chest Lt [CR] Stat Exams 08/10/18 14:59 Taken Sodium Chloride 0.9% [Saline Flush] Med 08/10/18 14:58 Active 10 ml FLUSH ASDIRECTED PRN Obtain Past Medical Record [OM.PC] Urgent Oth 08/10/18 14:58 Active Peripheral IV Insertion Adult [OM.PC] Stat Oth 08/10/18 14:58 Ordered Resuscitation Status Stat Resus Stat 08/10/18 14:58 Ordered Medication Orders Sodium Chloride (Saline Flush) 10 ml FLUSH ASDIRECTED PRN PRN Reason: Keep Vein Open Last Admin: 08/10/18 19:29 Dose: 10 ml Admin: 08/10/18 17:54 Dose: 10 ml Admin: 08/10/18 15:13 Dose: 10 ml Labs: Laboratory Tests 08/10/18 08/10/18 08/10/18 Range/Units 15:09 15:09 15:09 WBC 7.8 (4.0-10.2) K/uL RBC 3.59 L (3.77-5.09) M/uL Hgb 10.7 L (11.7-15.5) g/dL Hct 33.1 L (34.0-46.0) % MCV 92.2 (84.0-98.0) fL MCH 29.8 (28.2-33.3) pg MCHC 32.3 (31.7-36.0) g/dL RDW 14.6 H (11.2-14.1) % Plt Count 291 (150-350) K/uL Neut % (Auto) 79.3 (45.0-80.0) % Lymph % (Auto) 14.0 (10.0-50.0) % [place] % (Auto) 5.7 (2.0-14.0) % Eos % (Auto) 0.4 (0.0-5.0) % Baso % (Auto) 0.6 (0.0-2.0) % Neut # (Auto) 6.17 (1.40-7.00) K/uL Lymph # (Auto) 1.09 (0.50-3.50) K/uL [place] # (Auto) 0.44 (0.00-1.00) K/uL Eos # (Auto) 0.03 (0.00-0.50) K/uL Baso # (Auto) 0.05 (0.00-0.20) K/uL PT 28.8 H (9.5-12.0) SEC INR 2.7 APTT 36.1 H (21.0-31.3) SEC D-Dimer, Quantitative 590 H (0-400) ng/mL Sodium (136-145) mmol/L Potassium (3.5-5.1) mmol/L Chloride (98-107) mmol/L Carbon Dioxide (21.0-32.0) mmol/L BUN (7-18) mg/dL Creatinine (0.51-1.17) mg/dL Est Cr Clr Drug Dosing mL/min Estimated GFR (MDRD) mL/min Glucose (74-106) mg/dL Lactic Acid (0.4-2.0) mmol/L Uric Acid (2.6-7.2) mg/dL Calcium (8.5-10.1) mg/dL Magnesium (1.8-2.4) mg/dL Total Bilirubin (0.2-1.0) mg/dL AST (15-37) U/L ALT (12-78) U/L Alkaline Phosphatase (46-116) IU/L Creatine Kinase (26-308) U/L Creatine Kinase Index (0.0-2.5) % CK-MB (CK-2) (0.00-3.60) ng/mL Troponin I (0.000-0.056) ng/mL NT-Pro-B Natriuret Pep (0-125) pg/mL Total Protein (6.4-8.2) g/dL Albumin (3.4-5.0) g/dL TSH, Ultra Sensitive (0.358-3.740) mIU/mL 08/10/18 08/10/18 Range/Units 15:09 15:09 WBC (4.0-10.2) K/uL RBC (3.77-5.09) M/uL Hgb (11.7-15.5) g/dL Hct (34.0-46.0) % MCV (84.0-98.0) fL MCH (28.2-33.3) pg MCHC (31.7-36.0) g/dL RDW (11.2-14.1) % Plt Count (150-350) K/uL Neut % (Auto) (45.0-80.0) % Lymph % (Auto) (10.0-50.0) % [place] % (Auto) (2.0-14.0) % Eos % (Auto) (0.0-5.0) % Baso % (Auto) (0.0-2.0) % Neut # (Auto) (1.40-7.00) K/uL Lymph # (Auto) (0.50-3.50) K/uL [place] # (Auto) (0.00-1.00) K/uL Eos # (Auto) (0.00-0.50) K/uL Baso # (Auto) (0.00-0.20) K/uL PT (9.5-12.0) SEC INR APTT (21.0-31.3) SEC D-Dimer, Quantitative (0-400) ng/mL Sodium 137 (136-145) mmol/L Potassium 5.0 (3.5-5.1) mmol/L Chloride 101 (98-107) mmol/L Carbon Dioxide 28.1 (21.0-32.0) mmol/L BUN 27 H (7-18) mg/dL Creatinine 0.98 (0.51-1.17) mg/dL Est Cr Clr Drug Dosing 35.02 mL/min Estimated GFR (MDRD) 53 mL/min Glucose 126 H (74-106) mg/dL Lactic Acid 0.9 (0.4-2.0) mmol/L Uric Acid 4.4 (2.6-7.2) mg/dL Calcium 8.8 (8.5-10.1) mg/dL Magnesium 2.2 (1.8-2.4) mg/dL Total Bilirubin 0.3 (0.2-1.0) mg/dL AST 24 (15-37) U/L ALT 22 (12-78) U/L Alkaline Phosphatase 54 (46-116) IU/L Creatine Kinase 42 (26-308) U/L Creatine Kinase Index 1.7 (0.0-2.5) % CK-MB (CK-2) 0.70 (0.00-3.60) ng/mL Troponin I 0.067 H* (0.000-0.056) ng/mL NT-Pro-B Natriuret Pep 1050 H (0-125) pg/mL Total Protein 6.7 (6.4-8.2) g/dL Albumin 3.6 (3.4-5.0) g/dL TSH, Ultra Sensitive 0.690 (0.358-3.740) mIU/mL Meds: Medications Generic Name Dose Route Start Last Admin Trade Name Freq PRN Reason Stop Dose Admin Sodium Chloride 10 ml 08/10/18 14:58 08/10/18 19:29 Saline Flush FLUSH 10 ml ASDIRECTED PRN Administration Keep Vein Open Discontinued Medications Generic Name Dose Route Start Last Admin Trade Name Freq PRN Reason Stop Dose Admin Famotidine 40 mg 08/10/18 14:58 08/10/18 15:13 Pepcid IVPUSH 08/10/18 14:59 40 mg ONETIME ONE Administration Furosemide 60 mg 08/10/18 16:20 08/10/18 17:54 Lasix IVPUSH 08/10/18 16:21 60 mg NOW ONE Administration Hydromorphone HCl 1 mg 08/10/18 19:17 08/10/18 19:28 Dilaudid IVPUSH 08/10/18 19:18 1 mg ONETIME ONE Administration Ondansetron HCl 4 mg 08/10/18 19:16 08/10/18 19:28 Zofran IVPUSH 08/10/18 19:17 4 mg ONETIME ONE Administration - Radiology Interpretation Free Text/Narrative:: front desk monitor shows overall normal sinus rhythm with exception of occasional uniform PVCs. Average heart rate in the 60s to 70s with no other ectopy or arrhythmia. Chest x-ray, one view, and additional left lateral rib x-rays shows moderate osteoarthritic changes and scoliosis, however no cardiomegaly, pneumothorax, rib fractures, or acute fracture. Borderline mild centralized CHF with no other pulmonary infiltrates Telephone consultation at 18:38 hours with the radiology department at [facility]. Preliminary verbal report of CTA of the chest was negative for PE. CT Results Date: 08/10/18 CT Results Time: 18:38 Departure - Departure Time of Disposition: 19:48 Disposition: DC/Tfer to [facility] Condition: Fair Clinical Impression: Osteoarthritis, PVC's (premature ventricular contractions), Renal insufficiency , Mixed anxiety depressive disorder, D-dimer, elevated, Valvular heart disease, Peptic reflux disease, Hypothyroidism CHF (congestive heart failure) Qualifiers: Heart failure type: combined systolic and diastolic Heart failure chronicity: acute on chronic Qualified Code(s): I50.43 - Acute on chronic combined systolic (congestive) and diastolic (congestive) heart failure Contusion of rib on left side Qualifiers: Encounter type: initial encounter Qualified Code(s): S20.212A - Contusion of left front wall of thorax, initial encounter HTN (hypertension) Qualifiers: Hypertension type: essential hypertension Qualified Code(s): I10 - Essential ( primary) hypertension COPD (chronic obstructive pulmonary disease) Qualifiers: COPD type: emphysema Emphysema type: panlobular Qualified Code(s): J43.1 - Panlobular emphysema Coronary artery disease Qualifiers: Coronary Disease-Associated Artery/Lesion type: [place] artery [place] vs. transplanted heart: [place] heart Associated angina: without angina Qualified Code(s): I25.10 - Atherosclerotic heart disease of [place] coronary artery without angina pectoris Hyperlipidemia Qualifiers: Hyperlipidemia type: mixed hyperlipidemia Qualified Code(s): E78.2 - Mixed hyperlipidemia - Discharge Information *PRESCRIPTION DRUG MONITORING PROGRAM REVIEWED*: Not Applicable *COPY OF PRESCRIPTION DRUG MONITORING REPORT IN PATIENT OSVALDO: Not Applicable Referrals: Yarelis Amezcua NP [Primary Care Provider] - Forms: ED Department Discharge, Interfacility Transfer EMTALA - Problem List & Annotations (1) Valvular heart disease SNOMED Code(s): 193594 Code(s): I38 - ENDOCARDITIS, VALVE UNSPECIFIED Status: Chronic Priority: High Current Visit: Yes Annotation/Comment:: Progressive aortic valve stenosis and mitral valve insufficiency by clinical exam with further echocardiogram and workup recommended. Note the patient appears to be symptomatic, including dizziness and orthostasis when turning her head to the left. Right artery Doppler studies in March 2018 showed 50% disease, although this may also need to be repeated. No chest pain or anginal type symptoms prior to admission with chest pain protocol not initiated. Note current Coumadin therapy and therapeutic INR. Various therapeutic options were discussed with the patient, who wishes to be transferred to [place] for further evaluation. Telephone consultation at 18:[address] Rivero, hospitalist at [facility] in [place], who does agree to accept the patient for direct admission, with no further treatment recommendations given. Ambulance transfer with lab instructor accompaniment. Note previous NO CODE status, however the patient and her family wish to have further treatment and evaluation at this time as above. They are aware that they will need to lift this NO CODE STATUS prior to any further interventions, etc. (2) CHF (congestive heart failure) SNOMED Code(s): 16778393 Code(s): I50.9 - HEART FAILURE, UNSPECIFIED Status: Acute Priority: High Current Visit: Yes Onset Date: 08/10/18 Annotation/Comment:: Mild CHF by clinical exam and today's x-rays with no true chest pain or anginal type symptoms. IV Lasix given in the emergency room. Note previous history of coronary artery disease and valvular disease as above/below. Qualifiers: Heart failure type: combined systolic and diastolic Heart failure chronicity: acute on chronic Qualified Code(s): I50.43 - Acute on chronic combined systolic (congestive) and diastolic (congestive) heart failure (3) Coronary artery disease SNOMED Code(s): 53620867 Code(s): I25.10 - ATHSCL HEART DISEASE OF [place] CORONARY ARTERY W/O ANG PCTRS Status: Acute Priority: High Current Visit: Yes Annotation/Comment :: Known coronary artery disease as above. No chest pain or anginal type symptoms with treatment as above. Qualifiers: Coronary Disease-Associated Artery/Lesion type: [place] artery [place] vs. transplanted heart: [place] heart Associated angina: without angina Qualified Code(s): I25.10 - Atherosclerotic heart disease of [place] coronary artery without angina pectoris (4) PVC's (premature ventricular contractions) SNOMED Code(s): 91729027 Code(s): I49.3 - VENTRICULAR PREMATURE DEPOLARIZATION Status: Acute Priority: Medium Current Visit: Yes Annotation/Comment:: Note uniform PVCs stable in the emergency room with known previous history of PVCs, etc. as above. PVCs nonsymptomatic at this time. (5) D-dimer, elevated SNOMED Code(s): 336165018 Code(s): R79.89 - OTHER SPECIFIED ABNORMAL FINDINGS OF BLOOD CHEMISTRY Status: Chronic Priority: High Current Visit: Yes Onset Date: 08/08/16 Annotation/Comment:: Known history of previous distant DVT and PE with orthostatic episode today. D-dimer is still elevated today with therapeutic INR and current Coumadin therapy. Note negative CTA of the chest as above. (6) Contusion of rib on left side SNOMED Code(s): 043142467 Code(s): S20.212A - CONTUSION OF LEFT FRONT WALL OF THORAX, INITIAL ENCOUNTER Status: Acute Priority: High Current Visit: Yes Onset Date: Annotation/Comment:: Minor left rib contusion secondary to orthostatic episode as above. IV Dilaudid given for pain control with IV Zofran for nausea prophylaxis. No evidence of rib fractures by today's x-rays. Qualifiers: Encounter type: initial encounter Qualified Code(s): S20.212A - Contusion of left front wall of thorax, initial encounter (7) Peptic reflux disease SNOMED Code(s): 216252281 Code(s): K21.9 - GASTRO-ESOPHAGEAL REFLUX DISEASE WITHOUT ESOPHAGITIS Status: Chronic Priority: Medium Current Visit: Yes Annotation/Comment:: High Dose IV Pepcid given as GI prophylaxis in the emergency room. No recent abdominal complaints with no evidence of GI bleed, etc with relatively stable known previous iron deficiency anemia. Note current Coumadin therapy. Continue to observe closely by accepting providers with further GI workup, etc. depending on her clinical course (8) Osteoarthritis SNOMED Code(s): 271419432 Code(s): M19.90 - UNSPECIFIED OSTEOARTHRITIS, UNSPECIFIED SITE Status: Chronic Priority: Medium Current Visit: Yes Annotation/Comment:: Otherwise stable by history (9) Hypothyroidism SNOMED Code(s): 53907952 Code(s): E03.9 - HYPOTHYROIDISM, UNSPECIFIED Status: Chronic Priority: Medium Current Visit: Yes Annotation/Comment:: Currently under therapy. TSH normal today. (10) HTN (hypertension) SNOMED Code(s): 26185266 Code(s): I10 - ESSENTIAL (PRIMARY) HYPERTENSION Status: Chronic Priority : Medium Current Visit: Yes Annotation/Comment:: Blood pressures were mildly elevated today, however overall stable and under moderate control. Note recent renal artery Doppler studies at [facility] in [place] as above. Continue to observe closely by accepting providers. IV Lasix given in the emergency room. Qualifiers: Hypertension type: essential hypertension Qualified Code(s): I10 - Essential (primary) hypertension (11) COPD (chronic obstructive pulmonary disease) SNOMED Code(s): 76573361 Code(s): J44.9 - CHRONIC OBSTRUCTIVE PULMONARY DISEASE, UNSPECIFIED Status : Chronic Priority: Medium Current Visit: Yes Annotation/Comment:: Stable by history with no recent history of fever or bronchitic type symptoms. Note sleep apnea with patient compliant with her CPAP. Qualifiers: COPD type: emphysema Emphysema type: panlobular Qualified Code(s): J43.1 - Panlobular emphysema (12) Iron deficiency anemia SNOMED Code(s): 50046976 Code(s): D50.9 - IRON DEFICIENCY ANEMIA, UNSPECIFIED Status: Chronic Priority: Medium Current Visit: Yes Annotation/Comment:: As above Qualifiers: Iron deficiency anemia type: other iron deficiency Qualified Code(s): D50.8 - Other iron deficiency anemias (13) Renal insufficiency SNOMED Code(s): 470052648, 655184151 Code(s): N28.9 - DISORDER OF KIDNEY AND URETER, UNSPECIFIED Status: Chronic Priority: Medium Current Visit: Yes Annotation/Comment:: Previous history of renal insufficiency, however normal creatinine today. Continue to observe closely secondary to IV Lasix. Note history of renal artery stenosis. (14) Hyperlipidemia SNOMED Code(s): 86458368 Code(s): E78.5 - HYPERLIPIDEMIA, UNSPECIFIED Status: Chronic Priority: High Current Visit: Yes Annotation/Comment:: Somewhat elevated lipid panel in this facility in June 2018 with patient currently not on statin therapy secondary to her previous intolerance to Lipitor. Patient would benefit from retrial of another low-dose statin with concomitant Coenzyme Q10 therapy. Glycosylated hemoglobin normal during recent hospitalization in June as above. Qualifiers: Hyperlipidemia type: mixed hyperlipidemia Qualified Code(s): E78.2 - Mixed hyperlipidemia (15) Mixed anxiety depressive disorder SNOMED Code(s): 509485797 Code(s): F41.8 - OTHER SPECIFIED ANXIETY DISORDERS Status: Chronic Priority: Medium Current Visit: Yes Annotation/Comment:: Stable by patient history and currently under therapy. - Problem List Review Problem List Initiated/Reviewed/Updated: Yes - My Orders Last 24 Hours: My Active Orders 08/10/18 14:58 Cardiac Monitoring [RC] . DIRECTED EKG Documentation Completion [RC] ASDIRECTED Oxygen Therapy, ED [RC] PRN Peripheral IV Care [RC] . DIRECTED Pulse Oximetry [RC] CONTINUOUS Up With Assistance [RC] PFP Vital Signs [RC] PFP Sodium Chloride 0.9% [Saline Flush] 10 ml FLUSH ASDIRECTED PRN Obtain Past Medical Record [OM.PC] Urgent Peripheral IV Insertion Adult [OM.PC] Stat Resuscitation Status Stat 08/10/18 14:59 Ribs 2V w Chest Lt [CR] Stat 08/10/18 16:44 Chest PE [Ang Chest] [CT] Stat 08/10/18 Breakfast Nothing per Oral Now Diet [DIET] - Assessment/Plan Last 24 Hours: My Active Orders 08/10/18 14:58 Cardiac Monitoring [RC] . DIRECTED EKG Documentation Completion [RC] ASDIRECTED Oxygen Therapy, ED [RC] PRN Peripheral IV Care [RC] . DIRECTED Pulse Oximetry [RC] CONTINUOUS Up With Assistance [RC] PFP Vital Signs [RC] PFP Sodium Chloride 0.9% [Saline Flush] 10 ml FLUSH ASDIRECTED PRN Obtain Past Medical Record [OM.PC] Urgent Peripheral IV Insertion Adult [OM.PC] Stat Resuscitation Status Stat 08/10/18 14:59 Ribs 2V w Chest Lt [CR] Stat 08/10/18 16:44 Chest PE [Ang Chest] [CT] Stat 08/10/18 Breakfast Nothing per Oral Now Diet [DIET] Assessment:: As above Plan: As above. Extensive precautions were given to the patient and her granddaughter , who are in agreement with the treatment plan. Ambulance transfer to [facility] in [place] as above.
[2018-08-10] MEDS: Sodium Chloride 0.9% 10 ML Syringe FLUSH PRN ×3 (15:13→19:29)
[2018-08-10] MEDS ORDERED: Furosemide 40 MG/4 ML VIAL IVPUSH ONE (16:20)
[2018-08-10] MEDS ORDERED: Ondansetron 4 MG/2 ML SDV IVPUSH ONE (19:16)
[2018-08-10] MEDS ORDERED: HYDROmorphone 1 MG/ML Syringe IVPUSH ONE (19:17)
[2018-08-10 20:13] VITALS: BP 175/62
== END 2018-08-10 19:48 ==
LOC: LL.ED 14:42
DX: S20.212A Contusion of left front wall of thorax, initial encounter (principal); I13.0 Hypertensive heart and chronic kidney disease with heart failure and stage 1 through stage 4 chronic kidney disease, or unspecified chronic kidney disease; I50.9 Heart failure, unspecified; I25.2 Old myocardial infarction; N18.3 Chronic kidney disease, stage 3 (moderate); M19.90 Unspecified osteoarthritis, unspecified site; I49.3 Ventricular premature depolarization; F41.8 Other specified anxiety disorders; R79.1 Abnormal coagulation profile; K21.9 Gastro-esophageal reflux disease without esophagitis; E03.9 Hypothyroidism, unspecified; E78.2 Mixed hyperlipidemia; I25.10 Atherosclerotic heart disease of native coronary artery without angina pectoris; J43.1 Panlobular emphysema; Z88.8 Allergy status to other drugs, medicaments and biological substances; Z88.1 Allergy status to other antibiotic agents; Z88.2 Allergy status to sulfonamides; Z91.018 Allergy to other foods; Z79.899 Other long term (current) drug therapy; W19.XXXA Unspecified fall, initial encounter
CPT/HCPCS: 36415; 71101-LT; 71275; 80053; 82550; 82553; 83605; 83735; 83880; 84443; 84484; 84550; 85025; 85379; 85610; 85730; 93005; 96374; 96375; 99285-25; J1170; J1940; J2405; J3490; Q9967

== ENCOUNTER 2019-04-09 19:06 | Emergency (ER) | payer MEDICARE, OTHER ==
[2019-04-09] MEDS ORDERED: Labetalol 20 MG/4 ML Syringe IVPUSH ONE ×2 (19:19→20:34)
[2019-04-09] MEDS: Sodium Chloride 0.9% 10 ML Syringe FLUSH PRN ×2 (19:47→20:52)
[2019-04-09 20:06] LABS: CHLORIDE,CL 103 mmol/L (98-107); SODIUM,NA 139 mmol/L (136-145)
--- NOTE | 2019-04-09 20:09 | EDM.PDOC ---
ED HPI GENERAL MEDICAL PROBLEM - General Chief Complaint: General Stated Complaint: HYPERTENSION Time Seen by Provider: 04/09/19 19:10 Source of Information: Reports: Patient, Family History Limitations: Reports: No Limitations - History of Present Illness INITIAL COMMENTS - FREE TEXT/NARRATIVE: Patient is a 88-year-old who is seen in the ER secondary to hypertension she states that at home and was about 230/70 Onset: Today, Gradual Duration: Hour(s):, Getting Worse Location: Reports: Generalized Quality: Reports: Ache Severity: Moderate Improves with: Reports: Medication Worsens with: Reports: None Associated Symptoms: Reports: No Other Symptoms 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) - Related Data Allergies Allergy/AdvReac Type Severity Reaction Status Date / Time atorvastatin calcium Allergy Lightheaded Verified 08/10/18 14:51 [From Lipitor] ness benzalkonium chloride Allergy Redness Verified 08/10/18 14:51 [From Travatan] celecoxib [From Celebrex] Allergy Change Verified 08/10/18 14:51 Mental Status erythromycin base Allergy Hives Verified 08/10/18 14:51 [Erythromycin Base] iodine Allergy Other Verified 08/10/18 14:51 nifedipine Allergy Swelling Verified 08/10/18 14:51 Penicillins Allergy Swelling Verified 08/10/18 14:51 rofecoxib [From Vioxx] Allergy Change Verified 08/10/18 14:51 Mental Status rosuvastatin calcium Allergy Lightheaded Verified 08/10/18 14:51 [From Crestor] ness sulfamethoxazole Allergy Hives Verified 08/10/18 14:51 [From Sulfamethoprim] travoprost [From Travatan] Allergy Redness Verified 08/10/18 14:51 trimethoprim Allergy Hives Verified 08/10/18 14:51 [From Sulfamethoprim] valdecoxib [From Bextra] Allergy Change Verified 08/10/18 14:51 Mental Status soy Allergy Nausea and Uncoded 08/10/18 14:51 Vomiting Home Meds: Home Meds Levothyroxine Sodium [Unithroid] 50 mcg PO DAILY 07/15/16 [History] Nitroglycerin [Nitrostat] 0.4 mg SL Q5M PRN 07/15/16 [History] Acetaminophen [Tylenol Arthritis] 1,300 mg PO BID PRN 12/05/16 [History] LORazepam 1 mg PO BEDTIME 06/10/17 [History] LORazepam [Ativan] 0.5 mg PO DAILY 06/10/17 [History] Lutein Extract/Zeaxanthin Ext [Lutein 15 MG Softgel] 1 cap PO BID 06/10/17 [ History] Prednisone [IJP: Prednisone] 5 mg PO DAILY 06/10/17 [History] Sennosides/Docusate Sodium [Senna-S] 1 each PO BID 06/10/17 [History] Dextran 70/Hypromellose [Artificial Tears] 2 ml OP Q1H PRN 07/14/17 [History] Clopidogrel [Plavix] 75 mg PO DAILY #90 tablet 08/05/17 [Rx] Aspirin [Adult Low Dose Aspirin EC] 81 mg PO DAILY 07/01/18 [History] Warfarin Sodium 1 tab PO ASDIRECTED 07/01/18 [History] amLODIPine Besylate [Amlodipine Besylate] 5 mg PO DAILY 07/01/18 [History] Losartan Potassium 50 mg PO DAILY@1300 08/10/18 [History] Ciprofloxacin [Ciprofloxacin HCl] 500 mg PO BID 7 Days #14 tab 04/09/19 [Rx] Metoprolol Tartrate 25 mg PO Q12HR@0800,2000 04/09/19 [History] Past Medical History HEENT History: Reports: Allergic Rhinitis, Cataract, Glaucoma, Hard of Hearing, Impaired Vision, Other (See Below). Denies: Macular Degeneration, Retinal Detachment Other HEENT History: Patient wears trifocals, bilateral hearing aides with mildly suboptimal therapy. Cardiovascular History: Reports: Afib, Arrhythmia, Blood Clots/VTE/DVT, CAD, Cardiomyopathy, Heart Failure, Heart Murmur, High Cholesterol, Hypertension, PVD , Syncope, Other (See Below). Denies: Aneurysm Other Cardiovascular History: First degree A-V block, PVCs, PACs, distant brief atrial fibrillation. Non-STEMI on 05/11/17 with secondary syncope requiring procedures as below. Patient denies previous PA despite medical records; grade 2 diastolic dysfunction, moderate left ventricular hypertrophy and left atrial enlargement by echocardiogram, mild pulmonary valve insufficiency and mild to moderate tricuspid valve insufficiency with additional moderate to severe mitral valve insufficiency by echocardiogram, mild aortic valve sclerosis without stenosis, mild carotid occlusive, history of superficial thrombophlebitis and varicose veins, DVT of the proximal left femoral vein on 07/27/15 with right-sided PE on 05/08/16 and current warfarin therapy. Right renal artery stenosis as below. Varicose veins. History of d-dimer elevation. Respiratory History: Reports: Bronchitis, Recurrent, COPD, Intubation, Previous , PE, Sleep Apnea, SOB, Other (See Below). Denies: Asthma, Intubation, Difficult, Pneumothorax, Pulmonary Fibrosis, TB Other Respiratory History: Patient does use CPAP for her moderate to severe obstructive sleep apnea with previous history of nocturnal hypoxemia, PE as above, benign pulmonary nodules with previous left apical benign granuloma by CT scan on 05/08/16, COPD by chest x-ray with no medical therapy Gastrointestinal History: Reports: Chronic Constipation, Diverticulosis, GERD, Hiatal Hernia, Other (See Below). Denies: Celiac Disease, Cholelithiasis, Colon Polyp, Fecal Incontinence, Gastritis, GI Bleed, Hepatitis, Inflammatory Bowel Disease, Irritable Bowel Syndrome, Jaundice, Pancreatitis, PUD Other Gastrointestinal History: Probable benign right hepatic mass at about 2.[address] scan on 08/11/16, Benign hepatic cysts by CT scan on 02/18/16, fatty liver secondary to hyperlipidemia and small hiatal hernia by CT scan. Genitourinary History: Reports: Chronic Renal Insuffiency, Renal Disease, Urinary Incontinence, Other (See Below). Denies: Acute Renal Failure, Renal Calculus, STD Other Genitourinary History: kidney disease stage 3, bilateral benign renal cysts. History of left renal artery stenosis requiring stent placement as below. 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 Denies: Endometriosis Other TOW TRUCK OPERATOR History: Full term without complications during pregnancies or deliveries. Surgical menopause as below. Musculoskeletal History: Reports: Arthritis, Back Pain, Chronic, Fibromyalgia, Gout, Neck Pain, Chronic, Osteoarthritis, Osteoporosis, RA. Denies: Amputation , Fracture, SLE Neurological History: Reports: CVA, Headaches, Chronic, Migraines, Other (See Below). 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 Denies: Abuse, Victim of, ADD, ADHD, Alzheimers Disease, Psych Hospitalization(s), Psychosis, PTSD, Suicide Attempt, Suicidal Ideation Other Psychiatric History: Previous Chronic narcotic use secondary to her fibromyalgia and arthritis. Endocrine/Metabolic History: Reports: Hypothyroidism, Osteopenia, Osteoporosis, Other (See Below). Denies: Diabetes, Gestational, Diabetes, Type I, Diabetes, Type II, Diabetes Mellitus, Type 3c, IDDM, Obesity/BMI 30+ Other Endocrine/Metabolic History: Hyponatremia secondary to CHF. Hypoalbuminemia. 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 Denies: AIDS, HIV, SLE Other Immunologic History: Immunosuppression secondary to chronic steroid therapy. Oncologic (Cancer) History: Reports: None. Denies: Basal Cell Carcinoma, Bladder, Breast, Cervix, Colon, Hodgkin's Lymphoma, Leukemia, Lymphoma, Malignant Melanoma, Non-Hodgkin's Lymphoma, Ovarian, Squamous Cell Carcinoma, Uterine Dermatologic History: Reports: Other (See Below). Denies: Eczema, Psoriasis Other Dermatologic History: Actinic keratosis of the nose previously treated. Large left lower leg hematoma and secondary cellulitis secondary to Coumadin therapy and injury requiring debridement and evacuation in 2018 as below. - Infectious Disease History Infectious Disease History: Reports: Chicken Pox, Measles, Mumps, Shingles. Denies: C-Difficile, Meningitis, Mononucleosis, MRSA, Pertussis (Whooping Cough) , Rheumatic Fever, Rubella, Scarlet Fever, TB, VRE - Past Surgical History Head Surgeries/Procedures: Reports: None HEENT Surgical History: Reports: Cataract Surgery, Oral Surgery, Other (See Below). Denies: Adenoidectomy, Eye Surgery, Laser Surgery, LASIK, Myringotomy w Tube(s), Tonsillectomy Other HEENT Surgeries/Procedures: Bilateral cataract surgery in 2012. Multiple teeth extractions with partial upper dentures. Cardiovascular Surgical History: Reports: Coronary Artery Stent, Percutaneous Transluminal Angioplasty, Varicose, Vascular Surgery, Other (See Below). Denies : AAA Repair Other Cardiovascular Surgeries/Procedures: Varicose vein stripping of the right leg in 195. PTCA/stent 3 with 2 stents placed in the LAD and one stent placed in the circumflex coronary artery on 05/12/17. Left renal artery stent placement on 09/08/17. PICC line placed on 07/15/17. Respiratory Surgical History: Reports: None. Denies: Thoracentesis GI Surgical History: Reports: Appendectomy, Colonoscopy, Other (See Below). Denies: Cholecystectomy, Colon, EGD, Hernia, Abdominal, Hernia, Inguinal, Hernia Repair/Other, Polypectomy Other GI Surgeries/Procedures: Colonoscopy in the 1980s. Appendectomy concomitant with partial hysterectomy as below. Female Surgical History: Reports: Breast Biopsy, Hysterectomy, Salpingo- Oophorectomy, Other (See Below) Other Female Surgeries/Procedures: Left breast biopsy for benign disease in the . Partial hysterectomy with remaining left ovary secondary to dysfunctional uterine bleeding in the . Previous right-sided salpingo- oophorectomy prior to the above hysterectomy. Endocrine Surgical History: Reports: None. Denies: Thyroid Biopsy Neurological Surgical History: Reports: None. Denies: C-Spine, Discectomy, Laminectomy, Lumbar Spine, Spinal Fusion, Thoracic Spine, Vertebroplasty Musculoskeletal Surgical History: Reports: Arthroscopic Knee, Arthroscopic Procedure, Carpal Tunnel, Hip Replacement, Joint Replacement, Other (See Below) . Denies: Ganglion Cyst, ORIF, Shoulder Surgery Other Musculoskeletal Surgeries/Procedures:: Left hip TEP on 06/25/15. Right carpal tunnel release in about 2004. Left carpal tunnel release on 06/29/14. Right arthroscopic knee surgery in about 2007. Oncologic Surgical History: Reports: Biopsy of Breast, Other (See Below) Other Oncologic Surgeries/Procedures: For benign disease as above. Dermatological Surgical History: Reports: Other (See Below) Other Dermatological Surgeries/Procedures: Surgical debridement and evacuation of large hematoma of the left leg on 06/25/17. - Past Imaging History Past Imaging History: Reports: Angiography (IR angiogram of the renal arteries bilaterally on 09/08/17. Heart catheterization on 09/10/16 with ejection fraction of 75% and 90% stenosis of the LAD. Note previous apparent negative evaluation in about 1999 by patient history.), Cardiac Echo (Last cardiac echocardiogram on 05/11/17 with findings as above and ejection fraction of 70%.), Carotid US ( Last carotid artery Doppler studies on 04/13/18 showing 50% bilateral stenosis with previous evaluation on 6/11/10.), CAT Scan (CT of the head on 05/11/17. CT of the abdomen and pelvis on 08/12/16. CTA of the chest on 08/08/16. CT of the abdomen and pelvis on 02/04/10 and 10/22/14. CT of the chest on 05/08/16.), Mammogram (Last mammogram on 03/10/18), MRI (Lumbar spine and left hip on . Right knee on 01/22/11.), Sleep Study (02/13/16 and 10/21/15.), Stress Testing (Cardiolite stress test 05/11/17 with ejection fraction of 75% with previous evaluation on 01/17/17.), Ultrasound (Bilateral renal artery duplex evaluations on 07/03/18, 04/13/18 and 10/14/17. Complete bilateral renal ultrasounds with additional renal artery duplex evaluations on 09/03/17. Abdominal ultrasound on .), Venous Doppler (Bilateral legs negative on 05/08/16 and the left leg on 07/27/15 positive for DVT.) Social & Family History - Family History HEENT: Reports: Allergic Rhinitis, Retinal Detachment, Other (See Below). Denies: Cataract, Glaucoma, Macular Degeneration Other HEENT Family History: Daughter with retinal detachment and allergic rhinitis. Cardiac: Reports: Bypass, CAD, Heart Murmur, Heart Valve Replacement, High Cholesterol, Hypertension, PA, PVD/COD, Other (See Below). Denies: Afib, Aneurysm, Arrhythmia, Blood Clots/VTE/DVT, Syncope Other Cardiac Family History: Son with mechanical valve replacement and CABG x1 at about age 62, son also - also suffers from hypertension and hyperlipidemia, son with agent orange exposure Respiratory: Reports: Sleep Apnea, Other (See Below). Denies: Asthma, COPD, PE , Pneumothorax, TB Other Respiratory Family Hisory: Son with sleep apnea sleep apnea. GI: Reports: Celiac Disease, Other (See Below). Denies: Cholelithiasis, Colon Polyps, GERD, GI bleed, Inflammatory Bowel Disease, Irritable Bowel Syndrome Other GI Family History: Daughter with celiac disease : Reports: Renal Disease/Insufficiency, Other (See Below). Denies: Diabetic Nephropathy, Dialysis, Renal Calculus Other Family History: Mother with end-stage renal disease OBGYN: Reports: None. Denies: Dysfunctional uterine bleeding, Endometriosis, Recurrent Spontaneous Musculoskeletal: Reports: None. Denies: Arthritis, Gout, Osteoarthritis, RA, SLE Neurological: Reports: Migraines, Seizure, Other (See Below). Denies: Alzheimers Disease, Cerebral Aneurysms, CVA, Dementia, MS, TIA Other Neurological Family History: Granddaughter with seizures at age 19, 2 granddaughters with migraine headaches Psychiatric: Reports: Anxiety, Depression, Other (See Below). Denies: Abuse, Victim of, ADD, ADHD, Psych Hospitalization(s), Psychosis, PTSD, Suicide Attempt Other Psychiatric Family History: Son with anxiety depression disorder Endocrine/Metabolic: Reports: None. Denies: Diabetes, Gestational, Diabetes, Type I, Diabetes, type II, Diabetes Mellitus, Type 3c, Hypothyroidism, IDDM Hematologic: Reports: None. Denies: Anemia, SLE, Transfusion Reaction Immunologic: Reports: None. Denies: AIDS, HIV, SLE Dermatologic: Reports: Psoriasis, Other (See Below). Denies: Eczema Other Dermatologic Family History: Daughter with psoriasis Oncologic: Reports: Bone, Breast, Esophageal, Metastatic, Other (See Below). Denies: Cervix, Hodgkin's Lymphoma, Leukemia, Lymphoma, Non-Hodgkin's Lymphoma, Ovarian, Skin, Uterine Other Oncologic Family History: Daughter with history of breast cancer in her 50s with reoccurrence in her 60s. Sister with possible bone cancer fatal at age 18, sister with fatal throat cancer in her 60s, sister with fatal vaginal cancer in her 60s, father with fatal throat cancer with pulmonary metastases at age 77 - Caffeine Use Caffeine Use: Reports: Coffee (4 cups per day). 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.) ED ROS GENERAL - Review of Systems Review Of Systems: See Below Constitutional: Reports: No Symptoms HEENT: Reports: No Symptoms Respiratory: Reports: No Symptoms Cardiovascular: Reports: No Symptoms Endocrine: Reports: No Symptoms GI/Abdominal: Reports: No Symptoms : Reports: No Symptoms Musculoskeletal: Reports: No Symptoms Skin: Reports: No Symptoms Neurological: Reports: No Symptoms Psychiatric: Reports: No Symptoms Hematologic/Lymphatic: Reports: No Symptoms ED EXAM, GENERAL - Physical Exam Exam: See Below Exam Limited By: No Limitations General Appearance: Alert, WD/WN, No Apparent Distress Ears: Normal External Exam, Normal Canal, Hearing Grossly Normal, Normal TMs Nose: Nasal Tenderness, Nasal Drainage Throat/Mouth: Normal Inspection, Normal Lips, Normal Teeth, Normal Gums, Normal Oropharynx, Normal Voice, No Airway Compromise Head: Atraumatic, Normocephalic Neck: Normal Inspection, Supple, Non-Tender, Full Range of Motion Respiratory/Chest: No Respiratory Distress, Lungs Clear, Normal Breath Sounds, No Accessory Muscle Use, Chest Non-Tender Cardiovascular: Regular Rate, Rhythm, Systolic Murmur GI/Abdominal: Normal Bowel Sounds, Soft, Non-Tender, No Organomegaly, No Distention, No Abnormal Bruit, No Mass (Female) Exam: Deferred Rectal (Female) Exam: Deferred Back Exam: Normal Inspection, Full Range of Motion, NT Extremities: Normal Inspection, Normal Range of Motion, Non-Tender, Normal Capillary Refill, No Pedal Edema Neurological: Alert, Oriented, CN II-XII Intact, Normal Cognition, Normal Gait, Normal Reflexes, No Motor/Sensory Deficits Psychiatric: Normal Affect, Normal Mood Skin Exam: Warm, Dry, Intact, Normal Color, No Rash Lymphatic: No Adenopathy Course - Vital Signs Last Recorded V/S: Last Vital Signs Temp 98.4 F 04/09/19 19:51 Pulse 67 04/09/19 21:14 Resp 18 04/09/19 19:51 BP 179/53 H 04/09/19 21:14 Pulse Ox 98 04/09/19 21:14 - Orders/Labs/Meds Labs: Laboratory Tests 04/09/19 04/09/19 Range/Units 19:35 19:35 WBC 7.9 (4.0-10.2) K/uL RBC 3.66 L (3.77-5.09) M/uL Hgb 10.5 L (11.7-15.5) g/dL Hct 32.7 L (34.0-46.0) % MCV 89.3 (84.0-98.0) fL MCH 28.7 (28.2-33.3) pg MCHC 32.1 (31.7-36.0) g/dL RDW 14.9 H (11.2-14.1) % Plt Count 267 (150-350) K/uL Neut % (Auto) 72.4 (45.0-80.0) % Lymph % (Auto) 18.7 (10.0-50.0) % [place] % (Auto) 7.7 (2.0-14.0) % Eos % (Auto) 0.8 (0.0-5.0) % Baso % (Auto) 0.4 (0.0-2.0) % Neut # (Auto) 5.74 (1.40-7.00) K/uL Lymph # (Auto) 1.48 (0.50-3.50) K/uL [place] # (Auto) 0.61 (0.00-1.00) K/uL Eos # (Auto) 0.06 (0.00-0.50) K/uL Baso # (Auto) 0.03 (0.00-0.20) K/uL Sodium 139 (136-145) mmol/L Potassium 4.3 (3.5-5.1) mmol/L Chloride 103 (98-107) mmol/L Carbon Dioxide 25.6 (21.0-32.0) mmol/L BUN 29 H (7-18) mg/dL Creatinine 0.87 (0.51-1.17) mg/dL Est Cr Clr Drug Dosing TNP Estimated GFR (MDRD) > 60 mL/min Glucose 101 (74-106) mg/dL Calcium 8.9 (8.5-10.1) mg/dL Total Bilirubin 0.4 (0.2-1.0) mg/dL AST 20 (15-37) U/L ALT 22 (12-78) U/L Alkaline Phosphatase 66 (46-116) IU/L Total Protein 6.7 (6.4-8.2) g/dL Albumin 3.5 (3.4-5.0) g/dL Meds: Medications Discontinued Medications Generic Name Dose Route Start Last Admin Trade Name Freq PRN Reason Stop Dose Admin Labetalol HCl 10 mg 04/09/19 19:19 04/09/19 19:40 Normodyne IVPUSH 04/09/19 19:20 10 mg ONETIME ONE Administration Protocol Labetalol HCl 10 mg 04/09/19 20:34 04/09/19 20:44 Normodyne IVPUSH 04/09/19 20:35 10 mg ONETIME ONE Administration Protocol Sodium Chloride 10 ml 04/09/19 19:17 04/09/19 20:52 Saline Flush FLUSH 10 ml ASDIRECTED PRN Administration Keep Vein Open Departure - Departure Time of Disposition: 21:10 Disposition: Home, Self-Care 01 Condition: Fair Clinical Impression: Sinusitis Hypertension Qualifiers: Hypertension type: essential hypertension Qualified Code(s): I10 - Essential ( primary) hypertension - Discharge Information *PRESCRIPTION DRUG MONITORING PROGRAM REVIEWED*: No *COPY OF PRESCRIPTION DRUG MONITORING REPORT IN PATIENT OSVALDO: No Prescriptions: Ciprofloxacin [Ciprofloxacin HCl] 500 mg PO BID 7 Days #14 tab Referrals: Sheets-Kathleen Quintana MD [Primary Care Provider] - Forms: ED Department Discharge Care Plan Goals: Patient given labetalol IV also diagnosed sinusitis, sinuses are tender to touch she has pressure we will go ahead and treat her with Cipro twice a day 10 days at this time we told patient to take 2 metoprolol twice a day for her hypertension she should be followed in the clinic or return to the ER if high
[2019-04-09 22:17] VITALS: BP 179/53; PULSE 67
== END 2019-04-09 21:35 | disposition home or self-care (01) ==
LOC: LL.ED 19:06
DX: J32.9 Chronic sinusitis, unspecified (principal); I25.10 Atherosclerotic heart disease of native coronary artery without angina pectoris; I25.2 Old myocardial infarction; I13.0 Hypertensive heart and chronic kidney disease with heart failure and stage 1 through stage 4 chronic kidney disease, or unspecified chronic kidney disease; N18.9 Chronic kidney disease, unspecified; I50.9 Heart failure, unspecified; I48.91 Unspecified atrial fibrillation; Z86.718 Personal history of other venous thrombosis and embolism; E78.5 Hyperlipidemia, unspecified; J44.9 Chronic obstructive pulmonary disease, unspecified; Z86.711 Personal history of pulmonary embolism; E03.9 Hypothyroidism, unspecified; F41.9 Anxiety disorder, unspecified; F32.9 Major depressive disorder, single episode, unspecified; Z88.8 Allergy status to other drugs, medicaments and biological substances; Z88.1 Allergy status to other antibiotic agents; Z88.0 Allergy status to penicillin; Z88.2 Allergy status to sulfonamides; Z79.01 Long term (current) use of anticoagulants; Z91.018 Allergy to other foods; Z86.73 Personal history of transient ischemic attack (TIA), and cerebral infarction without residual deficits; Z79.82 Long term (current) use of aspirin; Z79.899 Other long term (current) drug therapy; Z79.890 Hormone replacement therapy
CPT/HCPCS: 36415; 80053; 85025; 96374; 96376; 99283; J3490; 99284; 99284-25